=== PATIENT | male | born 1955 | race Caucasian/White ===

== ENCOUNTER → 2018-04-03 07:02 | Outpatient (CLI) | payer OTHER, SELFPAY ==
[2018-04-03 07:54] LABS: ALB/GLOB Ratio 1.1 RATIO (0.9-2.4); AST(SGOT) 20 U/L (15-37); Alanine Aminotransfer ALT/SGPT 30 U/L (16-61); Albumin, Serum 3.7 g/dL (3.2-5.0); Alkaline Phosphatase 86 U/L (45-117); Anion Gap 6 (5-15); BUN 15 mg/dL (7-18); BUN/Creat Ratio 17.8 RATIO (10-20); Chloride 101 mmol/L (98-107); Cholesterol 138 mg/dL (200); Creatinine, Serum 0.84 mg/dL (0.70-1.30); EST Glomerular Filtration Rate 97 mL/min (>60); Est Glom Filt Rate - Afr Amer 118 mL/min (>60); Globulin 3.5 g/dL (2.2-4.2); Glucose 99 mg/dL (74-106); High Density Lipoprotein 43 mg/dL; Potassium 3.5 mmol/L (3.5-5.1); Protein, Total 7.2 g/dL (6.4-8.2); Sodium Level 140 mmol/L (136-145); Triglycerides 91 mg/dL; Very Low Density Lipoprotein 18 mg/dL (5-40)
[2018-04-03 07:58] LABS: Microalbumin,Random Urine 7.1 mg/L (NO RANGE EST.); Microalbumin:Creatinine Ratio 10.3 mg/g CRE (<30 mg/g CRE)
[2018-04-03 08:42] LABS: Hemoglobin A1c 6.2 % (4.2-6.3)
== END ==
PROVIDERS: Family Provider Family Medicine; PCP Family Medicine; Referring Provider Family Medicine; Visit Provider Family Medicine
DX: E11.49 Type 2 diabetes mellitus with other diabetic neurological complication (principal); E78.5 Hyperlipidemia, unspecified; Z79.899 Other long term (current) drug therapy
CPT/HCPCS: 36415; 80053; 80061; 82043; 82570; 83036

== ENCOUNTER → 2018-04-08 11:45 | Outpatient (CLI) | payer OTHER, SELFPAY | PROVIDERS: Family Provider Family Medicine; PCP Family Medicine; Referring Provider Family Medicine; Visit Provider Family Medicine | DX: E11.9 Type 2 diabetes mellitus without complications (principal); Z12.11 Encounter for screening for malignant neoplasm of colon ==

== ENCOUNTER 2021-07-07 11:00 | Outpatient (CLI) | payer MEDICARE, SELFPAY ==
--- NOTE | 2021-07-07 11:06 | RAD_ITS ---
STUDY: X-RAY - RIGHT SHOULDER REASON FOR EXAM: Male, 66 years old. Right shoulder pain. TECHNIQUE: 4 view(s) of the shoulder. COMPARISON: None. FINDINGS: Osteopenia. Mild arthrosis of the glenohumeral joint. Small subacromial spur. Mild arthrosis of the AC joint. The soft tissue structures are unremarkable. Normal visualized pulmonary apex. RAD/Shoulder min 2 Views IMPRESSION: Osteopenia with osteoarthrosis of the glenohumeral and acromioclavicular joints. Small subacromial spur. No acute abnormality or erosive changes. Electronically Signed: Elton French MD at 12:33 EST , Service support ,
--- NOTE | 2021-07-07 11:06 | RAD_ITS ---
STUDY: X-RAY - LEFT SHOULDER REASON FOR EXAM: Male, 66 years old. Shoulder pain. TECHNIQUE: 4 view(s) of the shoulder. COMPARISON: None. FINDINGS: Osteopenia. Mild arthrosis of the glenohumeral joint. Small subacromial spur. Mild arthrosis of the AC joint. The soft tissue structures are unremarkable. Normal visualized pulmonary apex. RAD/Shoulder min 2 Views IMPRESSION: Osteopenia with mild arthrosis of the glenohumeral and acromioclavicular joints. Small subacromial spur. No acute abnormality or erosive changes. Electronically Signed: Elton French MD at 12:33 EST , Service support ,
== END 2021-07-07 23:59 | disposition home or self-care (01) ==
PROVIDERS: PCP Family Medicine; Referring Provider Anesthesiology Pain Medicine; Visit Provider Anesthesiology Pain Medicine
DX: M25.511 Pain in right shoulder (principal); M25.512 Pain in left shoulder
CPT/HCPCS: 73030

== ENCOUNTER 2021-08-09 09:00 | Outpatient (RCR) | payer MEDICARE, SELFPAY ==
--- NOTE | 2021-08-03 16:14 | HP.PTEVAL ---
Patient's Visit Information CHARLINE TERAN is a 66 year old M referred to Physical Therapy by Dr. Al Hutton MD with a diagnosis of CERVICAL DISC DEGENERATION,RADICULOPATHY CERVICAL. Date of Evaluation: 08/03/21 Physical Therapist: Stanley Romo, PT, Cert MDT, OCS - Visit Plan Frequency: 2x /Week Duration: 2-4 Weeks Plan: PT INTERVTION ICXT 18-24# X15 ,POSTURE EX''s AND HOME CERVICAL TRACTION UNIT - Subjective This 66 y/o male presents to physical therapy with physical therapy with cervical radiculopathy. Patient feel Mar 2021 fell forward on hands and face at a gas station. Patient went to [facility] urgent care x-rays where -. Seen family DR recommended pain management . Patient had MRI showed bulging disc /osteophyte. Patient plans epidural injections . Patient has had prior PT for shoulders strengthening/RTC which has helped. Currently ,patient has paresthesia/tingling ,pin/needles in fingers with occasional burning at night . These symptoms are more constant. Patient aggravating factors sleeping. Patient also c/o weakness in hand. Alleviating flexion ,MEDS. MEDS: gabapentin. Symptoms affects ADLS' and function. Denies PEREZ/dizziness/nausea. Patient goals to reduce these symptoms and strength. VOCATION: part-time. SOCAIL: - Pain Right Hand Pain Intensity (Out of 10): 5 Pain Intensity Range: 10 Comment: fingers - Objective POSTURE: mild forward posture rounded shoulders. NEURO: c/o paresthesia/tingling ,burning ,pin needles fingers ,reflexes 1/3 C5-6-7. PALAPTION: tender OA /occiput/UT. CERVICAL ROM: flexion min loss ,extension mod loss, lateral flexion/rotation mod loss. MACHINE STEMMER STRENGTH: 32# right 45 # left. MMT: 4/5 except shoulders 4-/5 - Special Tests C/S Radiculapathy - Left Upper limb tension test: Negative C/S Radiculapathy - Right Upper limb tension test: Negative C/S Radiculapathy - Left Spurlings: Negative C/S Radiculapathy - Right Spurlings: Negative C/S Radiculapathy - Left Cervical distraction: Negative C/S Radiculapathy - Right Cervical distraction: Negative C/S Radiculapathy - Left Relief test: Negative C/S Radiculapathy - Right Relief test: Negative C/S Radiculapathy - Valsalva: Negative Sharp Ced: Negative Vertebral Artery Test: Negative Alar Ligament Test: Negative - Balance/Special Test Scores Oswestry Neck Score: 17 - Goals Goal 1:: Patient to demonstrate 50% improvement with decrease symptoms in fingers to improve function Goal Time Frame: 2-4 Weeks Goal 2:: Patient to benefit from home traction unit Goal Time Frame: 2-4 Weeks Goal 3:: Patient improve posture for ADLS 80% Goal Time Frame: 2-4 Weeks Goal 4:: Patient to improve neck oswestry by 5 points to improve function with decrease symptoms Goal Time Frame: 2-4 Weeks - Rehabilitation Potential Physical Therapy Diagnosis: This patient has cervical radiculopathy in with numbness, tingling ,pin/needles/burning in fingers with weakness in right hand from falling on arms and face thus benefit from skilled PT Rehabilitation Potential: Good - Anticipated Interventions Patient/Client Instruction: Educate patient on: Condition, Plan of Care For the Purpose of:: To decrease pain, To increase ROM, To improve muscle performance and motor function, To improve ability to perform ADL's, To increase tolerance to activity/condition/position, To improve health of tissue, To decrease soft tissue restriction, To increase flexibility/ROM Therapeutic Exercise to Include: Strength training, Postural training, Flexibilty training, Active ROM For the Purpose of:: To decrease pain, To increase ROM, To improve muscle performance and motor function, To increase tolerance to activity/condition/position, To improve ability of physical actions for home/community/work/leisure, To decrease soft tissue restriction, To increase flexibility/ROM Thank you for the opportunity to evaluate your patient. For Medicare and Medicare HMO plans, please review the plan of care and approve it. It will need to be FAXED BACK to us at [phone] for Medicare purposes. For Medicare only, by signing this I certify the plan of care. Please let me know if there are questions or concerns regarding this plan of care. Physician Signature: Date:
== END 2021-08-09 19:00 | disposition home or self-care (01) ==
LOC: PT 09:00
PROVIDERS: PCP Family Medicine; Referring Provider Anesthesiology Pain Medicine; Visit Provider Anesthesiology Pain Medicine
DX: M50.30 Other cervical disc degeneration, unspecified cervical region (principal); M54.12 Radiculopathy, cervical region
CPT/HCPCS: 97012; 97035; 97162

== ENCOUNTER 2025-02-05 20:02 | Emergency (ER) | payer MEDICARE, SELFPAY ==
[2025-02-05 20:03] VITALS: BP 172/84; PULSE 86; RESP 18; TEMP 36.8; O2SAT 98
--- NOTE | 2025-02-05 21:21 | EDS_ITS ---
HPI History of Present Illness Chief Complaint: Complaint Informant: patient Pain Onset: Today Context: Gradual Onset Timing: Continuous Current Severity: Moderate Maximum Severity: Moderate Narrative Narrative: 69-year-old male history of diabetes enlarged prostate. Was at [facility] Yesterday recently diagnosed with a bladder stone they did a procedure to break down the bladder stone and then did a Roto-Rooter procedure for his prostate. Had a Mejia catheter stayed in hospital overnight. He had difficulty urinating at [facility]. When they pulled his Mejia catheter. They discharged him home with an 18 [place] Mejia catheter which became obstructed tonight he had urinary retention. The catheter still in place. He is on no blood thinners. Prior similar symptoms: No Recent Illness/Hospitalization: Yes [facility] Medical History (Updated 02/06/25 @ 00:[address] Dieudonne Ng MD) Urinary stone Memory loss due to medical condition Lumbar stenosis Diabetes Medical History no medical history no medical history Home Medications ?Medication ?Instructions ?Recorded ?Last Taken ?Type amlodipine 10 mg tablet 10 mg PO DAILY 03/03/1704/01 06:55 History atorvastatin 20 mg tablet 20 mg PO QHS 03/03/17 Unknow n History albuterol 90 mcg/actuation aerosol 90 mcg inhalation Q 4H PRN PRN sob 02/05/25 Unknown History inhaler cholecalciferol (vitamin D3) 1,250 1,250 mcg PO QWEEK 02/05/25 Unknown History mcg (50,000 unit) capsule donepezil 5 mg tablet 5 mg PO DAILY 02/05/25 Unkno wn History gabapentin 300 mg capsule 300 mg PO Q12H PRN nerves Unknown History metformin 500 mg tablet 500 mg PO BID 02/05/25 Unkno wn History tamsulosin 0.4 mg capsule 0.8 mg PO QHS 02/05/25 Unkno wn History trospium 20 mg tablet 20 mg PO DAILY 02/05/25 Unkn own History valsartan 80 1 tab PO DAILY 02/05/25 Unkn own History mg-hydrochlorothiazide 12.5 mg tablet Allergy/AdvReac Type Severity Reaction Status Date / Time lisinopril Allergy PT UNSURE Verified 02/05/25 20:06 OF REACTION schwartz AdvReac PT UNSURE Verified 02/05/25 20:06 OF REACTION sunflower seed AdvReac PT UNSURE Verified 02/05/25 20:06 OF REACTION Social History Smoking Status: Never smoker ROS ROS ED ROS Narrative Denies recent illness.Gross hematuria post procedure. Constitutional Constitutional ED: Denies fever(s) Eyes Eyes: Denies blurry vision ENT ENT ED: Denies ear pain Cardiovascular Cardiovascular: Denies chest pain Respiratory/Chest Respiratory/Chest: Denies cough or dyspnea Gastrointestinal Gastrointestinal: Denies abdominal pain Genitourinary Genitourinary ED: Reports hematuria Musculoskeletal Musculoskeletal: Denies arthralgias Integumentary Denies abscess or rash Neurologic Neurologic: Denies headache(s) Psychiatric Psychiatric: Denies anxiety or depression Endocrine Endocrinology: Denies polydipsia Hematologic/Lymphatic Hematologic/Lymphatic: Denies easy bleeding, easy bruising or lymphadenopathy Allergic/Immunologic Allergic/Immunologic ED: Denies mouth swelling, tongue swelling or urticaria EXAM Physical Exam Narrative Exam Narrative: 69-year-old male sitting upright in bed. Vital signs stable afebrile. H EENT exam pupils round react light. Mytrex members. Neck nontender. Lungs clear. Heart regular rhythm rate about 85 no murmur. Chest wall ribs nontender. A bdomen soft, nontender, nondistended, normal bowel sounds without peritoneal signs. No tenderness over his bladder. External exam he has a 18 [place] Mejia catheter in place. Catheter bag has a moderate amount of blood. Some small clots. Currently the catheter is running. The nurses then flushed it once he came through triage and got it working again. He is moving all 4 extremities. Normal strength. No edema. Nontender. Patient is awake and alert no focal motor deficits. Const Vital Signs: 02/05/25 20:03 02/05/25 22:02 02/05/25 23:10 Temperature 98.2 F Temperature Source Oral Pulse Rate 86 76 77 Respiratory Rate 18 18 20 H Blood Pressure 172/84 H 149/70 H Blood Pressure Mean 113 96 Pulse Ox 98 96 96 Oxygen Delivery Method Room Air Room Air Room Air Positive well nourished and well developed; Negative for cachectic, contractures or unkempt General Appearance ED: well developed and NAD; Negative for unkempt, cachectic, contractures or pallor Nutritional Appearance: Negative for cachectic HEENT Reports moist mucous membranes normocephalic and atraumatic Eyes PERRL and EOMs intact bilaterally Neck no lymphadenopathy, supple and no JVD Resp normal respiratory effort and clear to auscultation bilaterally Cardio regular rate, regular rhythm, S1 normal heart sound, S2 normal heart sound and no murmurs GI non-tender, non-distended and no masses Inspection: Negative for abdominal distention Auscultation: normoactive bowel sounds Palpation: soft; Negative for tender or guarding no CVA tenderness Narrative: 18 [place] Mejia catheter in place. Gross hematuria in the Mejia bag. But currently the catheter is not obstructed. Back/Spine no CVA tenderness Extremity normal to inspection General Extremety ED: Negative for edema or pulses abnormal General Extremity: Negative for edema or pulses abnormal Neuro oriented x3, CN's II-XII intact bilaterally, moves all extremities and no focal motor deficits Sensorium / Orientation: alert, oriented to person, oriented to place and oriented to time Motor Exam: strength 5/5 throughout Psych mental status grossly normal Appearance: Negative for unkempt Thought Process: normal thought process Skin General Skin Exam: Negative for jaundice or pallor Lesions: no lesions Rashes: no rashes MDM MDM MDM Narrative Medical decision making narrative: 69-year-old male recent bladder stone procedure at [facility] Yesterday also a transurethral retrograde prostate procedure. Today having gross hematuria obstructing the 18 [place] catheter. Nurses have already irrigated and remove the clots the catheter is flowing he is still having significant amount of gross hematuria I spoke to the urologist on-call for Dr. Stefanie maldonado. She and I discussed the patient's case. Heather irrigate his bladder see if we can decrease the amount of hematuria. If need be the Mejia catheter will be changed from an 18 to a 22 if he still having significant bleeding. Repeat exam at 11:46 PM patient is doing well. We were able to irrigate the Mejia catheter it still blood-tinged but there is no clot it is flowing well. Patient again was offered but deferred at this time change in the Mejia catheter. He will follow-up with his [facility] urologist tomorrow. He knows to return if the catheter is not flowing or he gets significant abdominal distention and bladder pain. Lab Data Attestation: I reviewed the patient's lab results. Lab results narrative: CBC shows a white count 9.5. H&H 14 and 40. Platelets 179. Chemistry shows sodium 135. Gap 15. BUN and creatinine are 19 and 1.23. Leukos 154. Labs: Laboratory Results - last 24 hr 02/05/25 21:40 WBC 11.5 H RBC 4.44 L Hgb 14.0 Hct 40.5 MCV 91.2 MCH 31.5 MCHC 34.6 RDW Std Deviation 42.2 RDW Coeff of Matilda 12.7 Plt Count 179 MPV 10.0 Sodium 135 Potassium 3.6 Chloride 97 L Carbon Dioxide 23.7 Anion Gap 15 BUN 19 Creatinine 1.23 H Est GFR (MDRD) Non-Af 63 BUN/Creatinine Ratio 15.7 Glucose 154 H Calcium 9.0 Discharge Plan Triage Chief Complaint: Complaint ED Provider: Dieudonne Ng Dx/Rx/DC Orders Clinical Impression: Gross hematuria, Acute urinary retention, History of transurethral resection of prostate Instructions: ED Hematuria, ED Urinary Retention, Male Prescriptions: No Action atorvastatin 20 MG tablet 20 mg PO QHS amlodipine 10 MG tablet 10 mg PO DAILY albuterol 90 mcg/actuation aerosol 90 mcg inhalation Q4H PRN PRN (Reason: sob ) donepezil 5 mg tablet 5 mg PO DAILY gabapentin 300 mg capsule 300 mg PO Q12H PRN (Reason: nerves ) cholecalciferol (vitamin D3) 1,250 mcg (50,000 unit) capsule 1,250 mcg PO QWEEK metformin 500 mg tablet 500 mg PO BID valsartan-hydrochlorothiazide 80-12.5 mg tablet 1 tab PO DAILY tamsulosin 0.4 mg capsule 0.8 mg PO QHS trospium 20 mg tablet 20 mg PO DAILY Primary Care Provider: Temo Ferrera Referrals: Temo Ferrera MD [Primary Care Provider] - Edgar Zapata PA [Allied Health Professional] - As soon as possible Activity Restrictions/Additional Instructions: Follow-up with your [facility] urologist office this morning. Plenty of fluids. Avoid aspirin. If the catheter is not flowing and you are having a lot of pain in the area of your bladder, that means the catheter is obstructed, then you need to return and have this irrigated and most likely the catheter changed to a larger 22 [place] catheter. Print Language: Afghan Disposition Disposition: Home, Self Care
--- OUTSIDE RECORDS SUMMARY | 2025-02-05 21:33 | XMS RPT_ITS | CCD ---
Author Organization [facility]ini[facility] Care Team Providers Care Set Up Mechanic Automatic Line Name Role Phone EJSICAKENAN Admitting Unavailable JESICAKENAN Primary Care Unavailable KENAN MOONEY Attending Unavailable CEBUL, DEBBIE III Consulting Unavailable PROVIDER, UNKNOWN Consulting Unavailable JESICAKENAN PANDEY Primary Care Unavailable KENAN MOONEY Attending Unavailable CEBUL, DEBBIE III Consulting Unavailable JESICAKENAN PANDEY Admitting Unavailable PROVIDER, UNKNOWN Consulting Unavailable Unavailable Primary Care Provider UnavailViktor Monsivais MD Primary Care Provider Viktor Ferrera MD Primary Care Provider Michel Nielsen Unavailable Viktor Ferrera MD Primary Care Provider Viktor Ferrera MD Primary Care Provider Michel Nielsen Unavailable Viktor Ferrera MD Primary Care Provider Mario B2B OUTSIDE SALES REPRESENTATIVE.Michelle DODD Unavailable Andrea B2B OUTSIDE SALES REPRESENTATIVE.[place] DODD Unavailable Tannhof B2B OUTSIDE SALES REPRESENTATIVE.JU Michelle Unavailable Unavail able [place]annhof B2B OUTSIDE SALES REPRESENTATIVE.JU Michelle Unavailable VIKTOR FERRERA Primary Care Unavailable FRANCISCO HIGHTOWER Attending Unavailable VIKTOR FERRERA Attending Unavailable VIKTOR FERRERA Primary Care Unavailable VIKTOR FERRERA Primary Care Unavailable TRICIA ANTONIO Attending Unavailable VIKTOR FERRERA Primary Care Unavailable VIKTOR FERRERA Referring Unavailable MARIO GLEZ Attending Unavailable VIKTOR FERRERA Referring Unavailable VIKTOR FERRERA Primary Care Unavailable MARIO GLEZ Attending Unavailable ELDERBROCK, VIKTOR D Primary Care Unavailable ELDERBROCK, VIKTOR D Referring Unavailable ELDERBROCK, VIKTOR D Primary Care Unavailable MALI MODI Attending Unavailable MICHELLE MARTIN Attending Unavailabl e ELDERBROCK, VIKTOR D Primary Care Unavailable ELDERBROCK, VIKTOR D Primary Care Unavailable ELDERBROCK, VIKTOR D Referring Unavailable ELDERBROCK, VIKTOR D Primary Care Unavailable ELDERBROCK, VIKTOR D Primary Care Unavailable MALI MODI Attending Unavailable MICHELLE MARTIN Referring Unavailabl e ELDERBROCK, VIKTOR D Primary Care Unavailable ELDERBROCK, VIKTOR D Primary Care Unavailable FRANCISCO HIGHTOWER Attending Unavailable ELDERBROCK, VIKTOR D Primary Care Unavailable EID, JAYE Referring Unavailable ELDERBROCK, VIKTOR D Primary Care Unavailable MARIO GLEZ Attending Unavailable ELDERBROCK, VIKTOR D Referring Unavailable ELDERBROCK, VIKTOR D Primary Care Unavailable CHIKA GLEZN Attending Unavailable ELDERBROCK, VIKTOR D Referring Unavailable ELDERBROCK, VIKTOR D Primary Care Unavailable EID, JAYE Referring Unavailable ELDERBROCK, VIKTOR D Primary Care Unavailable EIDKRYSTAL STEVENSON Attending Unavailable ELDERBROCK, VIKTOR D Primary Care Unavailable SELF Referring Unavailable MARIO GLEZ Attending Unavailable ELDERBROCK, VIKTOR D Referring Unavailable ELDERBROCK, VIKTOR D Primary Care Unavailable NEWTONMARIO LOPEZ Attending Unavailable ELDERBROCK, VIKTOR D Referring Unavailable ELDERBROCK, VIKTOR D Primary Care Unavailable MARIO GLEZ Attending Unavailable ELDERBROCK, VIKTOR D Referring Unavailable ELDERBROCK, VIKTOR D Primary Care Unavailable CHIKA GLEZN Attending Unavailable ELDERBROCK, VIKTOR D Primary Care Unavailable ELDERBROCK, VIKTOR D Referring Unavailable TRICIA ANTONIO Attending Unavailable ELDERBROCK, VIKTOR D Primary Care Unavailable ELDERBROCK, VIKTOR D Primary Care Unavailable ELDERBROCK, VIKTOR D Referring Unavailable ELDERBROCK, VIKTOR D Primary Care Unavailable MARIO GLEZ Attending Unavailable ELDERBROCK, VIKTOR D Primary Care Unavailable ELDERBROCK, VIKTOR D Referring Unavailable NEWTONMARIO Attending Unavailable ELDERBROCK, VIKTOR D Primary Care Unavailable ELDERBROCK, VIKTOR D Referring Unavailable ELDERBROCK, VIKTOR D Attending Unavailable ELDERBROCK, VIKTOR D Primary Care Unavailable DAVID SHERIFF JR Referring Unavaila ble ELDERBROCK, VIKTOR D Primary Care Unavailable ELDERBROCK, VIKTOR D Referring Unavailable ELDERBROCK, VIKOTR D Primary Care Unavailable ELDERBROCK, VIKTOR D Referring Unavailable ELDERBROCK, VIKTOR D Primary Care Unavailable ELDERBROCK, VIKTOR D Referring Unavailable ELDERBROCK, VIKTOR D Primary Care Unavailable BRYCEVIKTOR TOTH Referring Unavailable BRYCEVIKTOR TOTH Primary Care Unavailable JESSE BAIN Attending Unavailable KENAN PACE JR Referring Unavailable BRYCEVIKTOR TOTH Primary Care Unavailable DAVID SHERIFF JR Referring Unavailfarhana WUVIKTOR TOTH Primary Care Unavailable DAVID SHERIFF JR Referring Unavaila meera WUVIKTOR TOTH Primary Care Unavailable DAVID SHERIFF JR Attending Unavaila meera JAYE EID Referring Unavailable BRYCEVIKTOR TOTH Primary Care Unavailable Allergies Allergy Classification Reported Allergen(s) Allergy Type Date of Onset Reaction(s) Facility Angiotensin Converting Enzyme (TOÑA) Inhibitors (1 source) Lisinopril Drug Allergy 2 Cough [facility] sunflower seed extract (1 source) sunflower seed extract Drug Allergy 1 Other: See Comments [facility] (20 sources) Lisinopril; Translations: [LISINOPRIL] Drug Allergy 2 Cough [facility] (20 sources) sunflower seed extract; Translations: [SUNFLOWER SEED] Drug Allergy 1 Other: See Comments [facility] Work Phone: (20 sources) Kidney Beans; Translations: [KIDNEY BEANS] Food Intolerance 1 GI Upset [facility] Work Phone: Medications Current Medications Medication Drug Class(es) Dates Sig (Normalized) Sig (Original) [id number] 200 actuat albuterol 0.09 mg/actuat metered dose inhaler (20 sources) beta2-Adrenergic Agonist Start: 09-03-2023 End: 10-03-2023 take 2 puff(s) by inhalation every four hours as needed for wheezing albuterol HFA (VENTOLIN HFA) 90 mcg/actuation inhaler Indications: Bronchitis Inhale 2 Puffs as instructed every 4 hours as needed for wheezing/shortness of breath. 1 Each 09/03/2023 Active Comment on above: Inhale 2 Puffs as in structed every 4 hours as needed for wheezing/shortness of breath. amLODIPine 10 mg oral tablet (20 sources) Dihydropyridine Calcium Channel Twila Start: 07-06-2020 End: 10-16-2024 take 1 tablet by mouth once daily amLODIPine (NORVASC) 10 mg tablet Indications: Essential hypertension Take 1 tablet by mouth once daily. 90 tablet 3 10/16/2024 Active Comment on above: Take 1 tablet by yoselin th once daily. atorvastatin 20 mg oral tablet (20 sources) HMG-CoA Reductase Inhibitor Start: 07-06-2020 End: 10-16-2024 atorvastatin (LIPITOR) 20 mg tablet Indications: Hyperlipidemia with target LDL less than 100 , DM (diabetes mellitus), type 2 with neurological complications (HCC) Take 1 tablet by mouth once daily. 90 tablet 3 10/16/2024 Active ATORVASTATIN GEOVANNA CIUM PO Take by mouth 0 Active Comment on above: Take 1 tablet by yoselin th once daily. azithromycin 250 mg oral tablet (1 source) Macrolide Antimicrobial Start: 2023 End: 2023 azithromycin (ZITHROMAX Z-NINA) 250 mg tablet Indications: Bronchitis Take 2 tablets day one, then, 1 tablet daily until gone. 6 tablet 0 09/03/2023 09/08/2023 Active Comment on above: Take 2 tablets day o ne, then, 1 tablet daily until gone. benzonatate 100 mg oral capsule (3 sources) Non-narcotic Antitussive Start: 2023 End: 2023 take 1 capsule by mouth every eight hours as needed for cough and cough benzonatate (TESSALON PERLE) 100 mg capsule Indications: Acute cough Take 1 capsule by mouth every 8 hours as needed for cough for up to 15 days. 30 capsule 0 08/31/2023 09/15/2023 Active Comment on above: Take 1 capsule by mo [facility] every 8 hours as needed for cough for up to 15 days. cholecalciferol 1.25 mg oral capsule (20 sources) Vitamin D Start: 2023 End: 2024 take 1 capsule by mouth every week at mealtime cholecalciferol, Vitamin D3, (VITAMIN D3) 1,250 mcg (50,000 unit) cap capsule Indications: Vitamin D deficiency Take 1 capsule by mouth one time a week. take with food 12 capsule 3 10/16/2024 Active Comment on above: Take 1 capsule by mo [facility] one time a week. take with food cyclobenzaprine hydrochloride 5 mg oral tablet (20 sources) Muscle Relaxant Start: 2023 take 1 tablet by mouth three times daily cyclobenzaprine (FLEXERIL) 5 mg tablet Take 1 tablet by mouth three times a day. 12 tablet 05/21/2024 Active donepezil hydrochloride 5 mg oral tablet (19 sources) Start: 2024 End: 2024 take 1 tablet by mouth once daily at bedtime donepezil (ARICEPT) 5 mg tablet TAKE 1 TABLET BY MOUTH EVERYDAY AT BEDTIME 90 tablet 1 02/03/2025 Active gabapentin 300 mg oral capsule (20 sources) Anti-epileptic Agent Start: 2020 End: 2025 take 1 capsule by mouth once daily in the morning, then take 2 capsules by mouth once daily at bedtime gabapentin (NEURONTIN) 300 mg capsule Indications: DM (diabetes mellitus), type 2 with neurological complications (HCC) By mouth: 300mg qam, 600mg qHS 90 capsule 2 10/16/2024 02/15/2026 Active Comment on above: By mouth: 300mg qam, 600mg qHS hydroCHLOROthiazide 12.5 mg / valsartan 80 mg oral tablet (20 sources) Thiazide Diuretic, Angiotensin 2 Receptor Twila Start: 2020 End: 2024 take 1 tablet by mouth once daily Valsartan-hydroCHLOR Othiazide (DIOVAN HCT) 80-12.5 mg per tablet Indications: Essential hypertension Take 1 tablet by mouth once daily. 90 tablet 3 10/16/2024 Active Comment on above: Take 1 tablet by yoselin th once daily. iv contrast (will be provided with radiology test) (15 sources) Start: 2024 iv contrast (will be provided with radiology test) Indications: Gross hematuria CT Urogram WO/W Inject, intravenously, once for 1 dose.No IV access, insert saline lock prior to the beginning of sedation, infusion, injection of imaging exam. Discontinue saline lock post exam. If Pt. has a central line or IVAD, may access for administration according to line specific nursing protocol. Once exam is complete flush line and de-access according to line specific nursing protocol in the CT contrast administration guidelines link. 1 each 11/25/2024 Active LORazepam 0.5 mg oral tablet (1 source) Benzodiazepine Start: 2023 End: 2023 LORazepam (ATIVAN) 0.5 mg Indications: Claustrophobia Take 1 tablet by mouth as directed for 1 day. Take one pill 30-60 minutes before MRI 1 tablet 06/12/2024 06/13/2024 Active metFORMIN hydrochloride 500 mg oral tablet (20 sources) Biguanide Start: 2022 End: 2023 take 1 tablet by mouth twice daily at mealtime metFORMIN (GLUCOPHAGE) 500 mg tablet Indications: Controlled type 2 diabetes mellitus without complication, without long-term current use of insulin (HCC) Take 1 tablet by mouth two times a day with meals. 180 tablet 3 05/22/2024 Active Start: 07-06-2020 End: 04-13-2022 metFORMIN (GLUCOPHAGE) 500 m g tablet Indications: DM (diabetes mellitus), type 2 with neurological complications (HCC) , Controlled type 2 diabetes mellitus without complication, without long-term current use of insulin (HCC) Take 1 tablet by mouth twice daily with meals. 180 tablet 3 07/06/2020 10/12/2021 Discontinued METFORMIN HCL ER PO Take by mouth 0 Active Comment on above: Take 1 tablet by yoselin th twice daily with meals. Take 1 tablet by yoselin th two times a day with meals. predniSONE 20 mg oral tablet (3 sources) Start: 05-21-2024 End: 05-26-2024 take 2 tablets by mouth once daily predniSONE (DELTASONE) 20 mg tablet Take 2 tablets by mouth once daily for 5 days. 10 tablet 05/21/2024 05/26/2024 Active Start: 09-03-2023 End: 09-08-2023 take 1 tablet by mouth once daily predniSONE (DELTASONE) 20 mg tablet Indications: Bronchitis Take 1 tablet by mouth once daily for 5 days. 5 tablet 0 09/03/2023 09/08/2023 Active Comment on above: Take 1 tablet by yoselin th once daily for 5 days. 1000 ml sodium chloride 9 mg/ml injection (2 sources) Start: 11-26-19 End: 11-26-19 inject 1 dose intravenously once 0.9 % sodium chloride (NACL 0.9%) infusion Indications: Gross hematuria Inject 150 mL/hr intravenously one time only for 1 dose. Administer at rate defined per CT contrast administration specifications. To be provided with radiology test. 1 each 11/25/2024 11/25/2024 Active tamsulosin hydrochloride 0.4 mg oral capsule (20 sources) alpha-Adrenergi c Twila Start: 12-10-19 End: 12-10-19 take 2 capsules by mouth once daily at bedtime tamsulosin (FLOMAX) 0.4 mg Indications: BPH associated with nocturia Take 2 capsules by mouth daily at bedtime. 180 capsule 3 12/10/2023 Active Start: 04-04-2023 End: 12-10-2023 take 1 capsule by mouth once daily at bedtime tamsulosin (FLOMAX) 0.4 mg Indications: BPH associated with nocturia Take 1 capsule by mouth daily at bedtime. 90 capsule 3 04/04/2023 12/10/2023 Discontinued Start: 03-20-2022 take 1 capsule by mo uth once daily at bedtime tamsulosin (FLOMAX) 0.4 mg Take 1 capsule by mouth daily at bedtime. 90 capsule 3 03/20/2022 Active Comment on above: Take 1 capsule by mo uth daily at bedtime. trospium chloride 20 mg oral tablet (20 sources) Cholinergic Muscarinic Antagonist Start: 03-24-2024 End: 01-15-2025 take 1 tablet by mouth once daily trospium (SANCTURA) 20 mg tablet Indications: BPH associated with nocturia , OAB (overactive bladder) TAKE 1 TABLET BY MOUTH EVERY DAY 90 tablet 3 01/15/2025 Active Completed/Discontinued Medications Medication Drug Class(es) Dates Sig (Normalized) Sig (Original) ciprofloxacin 500 mg oral tablet (2 sources) Quinolone Antimicrobial Start: 12-29-2024 End: 12-29-2024 ciprofloxacin HCl 500 mg tab(s) (CIPRO) Start: 12-29-2024 End: 12-29-2024 take 1 dose by mouth once at mealtime 500 mg, ORAL, ONCE, 1 dose, On Sun12/29/24 at 0900, Administer 2 hours before or 4 hours after medications containing calcium, magnesium, aluminum, iron, or zinc (including antacids and sucralfate), and sevelamer. May be administered without regard to meals. Tube feedings should be held 1 hour before and 1 hour after administration., Antimicrobial indication: Prophylaxis EPINEPHrine 0.01 mg/ml / lidocaine hydrochloride 10 mg/ml injectable solution (1 source) Antiarrhythmic, alpha-Adrenergic Agonist, beta-Adrenergic Agonist, Catecholamine, Amide Local Anesthetic Start: 03-19-2021 End: 03-19-2021 lidocaine-EPINEPHrine 1 %-[id number] injection 5 mL ibuprofen 800 mg oral tablet (20 sources) Nonsteroidal Anti-inflammatory Drug Start: 03-29-2021 End: 04-10-2024 take 1 tablet by mouth every eight hours as needed ibuprofen (MOTRIN) 800 mg tablet Take 1 tablet by mouth every 8 hours as needed (FOR PAIN. TAKE WITH FOOD). 30 tablet 1 03/29/2021 04/10/2024 Discontinued (Course of therapy completed) Comment on above: Take 1 tablet by yoselin th every 8 hours as needed (FOR PAIN. TAKE WITH FOOD). lidocaine hydrochloride 0.02 mg/mg topical gel (2 sources) Antiarrhythmic, Amide Local Anesthetic Start: 12-29-2024 End: 12-29-2024 lidocaine urojet 2 % 6 mL topical gel (GLYDO) Start: 12-29-2024 End: 12-29-2024 6 mL, URETHRAL, ONCE, 1 dose , On Sun12/29/24 at 0900, FOR EXTERNAL USE ONLY penicillin v potassium 250 m g oral tablet (9 sources) Start: 03-19-2021 End: 03-19-2021 penicillin v potassium (VEET ID) tablet 500 mg Start: 03-19-2021 End: 03-20-2022 take 1 tablet by mouth four times daily penicillin v potassium (VEETID) 500 MG tablet Take 1 tablet by mouth 4 times daily for 6 days 24 tablet 0 03/19/2021 03/25/2021 Active Comment on above: Take 500 mg by mouth four times daily. Problems Active Problems Problem Classification Problem Date Documented Da te Episodic/Chronic Abdominal hernia (10 sources) Hiatal hernia; Translations: [Diaphragmatic hernia without obstruction or gangrene] Onset: 5 01-27-2025 Episodic Anxiety disorders (2 sources) Mixed anxiety and depressive disorder; Translations: [Other specified anxiety disorders] 02-05-2024 Chronic Calculus of urinary tract (12 sources) Urinary bladder stone; Translations: [Calculus in bladder] Onset: 5 12-29-2024 Episodic Chronic obstructive pulmonary disease and bronchiectasis (1 source) Bronchitis; Translations: [Bronchitis, not specified as acute or chronic] 09-03-2023 Episodic Diabetes mellitus with complications (20 sources) Type 2 diabetes mellitus; Translations: [Type 2 diabetes mellitus with other diabetic neurological complication] Onset: 5 07-06-2020 Chronic Diabetes mellitus without complication (5 sources) Type 2 diabetes mellitus without complication; Translations: [Type 2 diabetes mellitus without complications] Onset: 5 Chronic Disorders of lipid metabolism (20 sources) Hyperlipidemia; Translations: [Hyperlipidemia, unspecified] Onset: 3 04-28-2015 Chronic Esophageal disorders (10 sources) Gastroesophageal reflux disease without esophagitis; Translations: [Gastro-esophageal reflux disease without esophagitis] Onset: 5 01-27-2025 Chronic Essential hypertension (20 sources) Hypertensive disorder; Translations: [Essential (primary) hypertension] Onset: 2 09-04-2011 Chronic Genitourinary symptoms and ill-defined conditions (6 sources) Urinary incontinence; Translations: [Unspecified urinary incontinence] Onset: 5 06-30-2024 Chronic Genitourinary symptoms and ill-defined conditions (16 sources) Urgent desire to urinate; Translations: [Urgency of urination] Onset: 2 05-12-2024 Episodic Heart valve disorders (13 sources) Heart murmur; Translations: [Cardiac murmur, unspecified] Onset: 5 01-27-2025 Episodic Hyperplasia of prostate (20 sources) Nocturia due to benign prostatic hypertrophy; Translations: [Benign prostatic hyperplasia with lower urinary tract symptoms] Onset: 2 Chronic Nutritional deficiencies (4 sources) Vitamin D deficiency; Translations: [Vitamin D deficiency, unspecified] Onset: 5 10-12-2023 Chronic Open wounds of head; neck; and trunk (1 source) Laceration of nose; Translations: [Laceration without foreign body of nose, initial encounter] Episodic Other aftercare (3 sources) Removal of sutures done; Translations: [Encounter for removal of sutures] 12-03-2024 Episodic Other aftercare (1 source) Encounter for removal of sutures; Translations: [Visit for suture removal] Onset: 5 Episodic Other connective tissue disease (1 source) Pelvic floor dysfunction; Translations: [Other specified disorders of muscle] 11-25-2024 Episodic Other connective tissue disease (1 source) Other specified disorders of muscle; Translations: [PFD (pelvic floor dysfunction)] Onset: 5 Episodic Other diseases of bladder and urethra (6 sources) Overactive bladder; Translations: [Overactive bladder] 03-24-2024 Chronic Other diseases of bladder and urethra (1 source) Overactive bladder; Translations: [OAB (overactive bladder)] Onset: 4 Chronic Other diseases of kidney and ureters (1 source) Other obstructive and reflux uropathy; Translations: [BPH with obstruction/lower urinary tract symptoms] Onset: 5 Episodic Other hereditary and degenerative nervous system conditions (3 sources) Impaired cognition; Translations: [Mild cognitive impairment, so stated] 02-05-2024 Chronic Other hereditary and degenerative nervous system conditions (1 source) Mild cognitive impairment, so stated; Translations: [MCI (mild cognitive impairment)] Onset: 4 Chronic Other injuries and conditions due to external causes (1 source) Injury of face; Translations: [Unspecified injury of face, initial encounter] Episodic Other lower respiratory disease (1 source) Cough; Translations: [Acute cough] 08-31-2023 Episodic Other nervous system disorders (2 sources) Impaired cognition; Translations: [Other symptoms and signs involving cognitive functions and awareness] 12-24-2023 Episodic Other nervous system disorders (4 sources) Muscular incoordination; Translations: [Other lack of coordination] 08-05-2024 Episodic Other non-traumatic joint disorders (7 sources) Shoulder pain; Translations: [Pain in right shoulder] Onset: 1 Episodic Other screening for suspected conditions (not mental disorders or infectious disease) (13 sources) Raised prostate specific antigen; Translations: [Elevated prostate specific antigen [PSA]] Onset: 4 Episodic Other skin disorders (3 sources) Skin lesion; Translations: [Disorder of the skin and subcutaneous tissue, unspecified] 10-16-2024 Episodic Other skin disorders (3 sources) Sebaceous cyst of skin; Translations: [Sebaceous cyst] 10-16-2024 Episodic Other upper respiratory infections (1 source) Acute upper respiratory infection; Translations: [Acute upper respiratory infection, unspecified] 08-31-2023 Episodic Phlebitis; thrombophlebitis and thromboembolism (20 sources) Acute deep vein thrombosis of lower limb; Translations: [Acute embolism and thrombosis of unspecified deep veins of unspecified lower extremity] Onset: 2 Resolved: 7 03-26-2017 Episodic Residual codes; unclassified (3 sources) Memory impairment; Translations: [Other amnesia] 10-10-2023 Episodic Residual codes; unclassified (6 sources) Amnesia; Translations: [Other amnesia] 12-24-2023 Episodic Spondylosis; intervertebral disc disorders; other back problems (20 sources) Intervertebral disc disorder of lumbar region with myelopathy; Translations: [Intervertebral disc disorders with myelopathy, lumbar region] Onset: 3 10-25-2015 Chronic Unclassified (1 source) Sebaceous cyst of skin 10-16-2024 Unclassified (1 source) Procedure Onset: Past or Other Problems Problem Classification Problem Date Documented Date Episodic/Chronic Melanomas of skin (20 sources) Superficial spreading malignant melanoma of skin; Translations: [Malignant melanoma of skin, unspecified] Onset: 12-03-2014 Resolved: 04-10-2024 12-03-2014 Chronic Neoplasms of unspecified nature or uncertain behavior (20 sources) Neoplasm of uncertain behavior of skin; Translations: [Neoplasm of uncertain behavior of skin] Onset: 03-27-2017 03-27-2017 Episodic Other connective tissue disease (20 sources) Patellar tendonitis; Translations: [Patellar tendinitis, unspecified knee] Onset: 06-06-2011 Resolved: 04-28-2015 04-28-2015 Episodic Other connective tissue disease (8 sources) Synovial cyst of knee; Translations: [Synovial cyst of popliteal space [Shaffer], unspecified knee] Onset: 07-21-2011 Resolved: 04-28-2015 04-28-2015 Episodic Other connective tissue disease (20 sources) Synovial cyst of popliteal space [Shaffer], unspecified knee; Translations: [Synovial cyst of popliteal space] Onset: 07-21-2011 Resolved: 04-28-2015 04-28-2015 Episodic Other diseases of veins and lymphatics (20 sources) Vascular insufficiency; Translations: [Venous insufficiency (chronic) (peripheral)] Onset: 09-04-2011 09-04-2011 Episodic Other nervous system disorders (20 sources) Pappas's metatarsalgia; Translations: [Lesion of plantar nerve, unspecified lower limb] Onset: 05-16-2013 Resolved: 09-21-2016 09-21-2016 Chronic Other nervous system disorders (1 source) Other lack of coordination; Translations: [Muscular incoordination] Onset: 08-18-2024 Episodic Other non-traumatic joint disorders (20 sources) Bilateral chronic pain of upper limbs; Translations: [Pain in right shoulder] Onset: 04-12-2021 04-12-2021 Episodic Other non-traumatic joint disorders (20 sources) Pain in lower limb; Translations: [Pain in unspecified knee] Onset: 11-02-2011 Resolved: 04-28-2015 04-28-2015 Episodic Other skin disorders (1 source) Sebaceous cyst; Translations: [Sebaceous cyst] Onset: 10-16-2024 Episodic Other skin disorders (1 source) Disorder of the skin and subcutaneous tissue, unspecified; Translations: [Skin lesion] Onset: 10-16-2024 Episodic Residual codes; unclassified (2 sources) Other amnesia; Translations: [Memory changes] Onset: 04-09-2024 Episodic Screening and history of mental health and substance abuse codes (4 sources) Patient encounter status; Translations: [Encounter for screening for depression] Onset: 10-16-2024 10-16-2024 Episodic Spondylosis; intervertebral disc disorders; other back problems (20 sources) Stenosis of intervertebral foramina; Translations: [Spinal stenosis, cervical region] Onset: 12-17-2007 Resolved: 09-21-2016 05-20-2021 Episodic Sprains and strains (20 sources) Strain of neck muscle; Translations: [Strain of muscle, fascia and tendon at neck level, initial encounter] Onset: 05-27-2024 05-22-2024 Episodic Results Test Name Value Interpretation Reference Range Facility [facility] 01-30-2025 Echocardiography Echocardiography Rep ort: [facility] Date of service: 01/30/2025 9:02:13 AM Ordering physician: DAVID SHERIFF JR Exam indication: Initial evaluation valvular heart disease Technologist: Eliana GUERRA Interpreting physician: Td Brooke MD PATIENT: Name: MR. CHARLINE SANCHEZ : 1955 Age: 69 years Gender: M History of dyslipidemia, diabetes mellitus and hypertension. Primary rhythm: sinus. Height: 172.72 cm BSA: 2.07 m Weight: 89.36 kg BMI: 30.0 kg/m Heart rate 67 bpm Blood pressure 118/74 mmHg Color Doppler was utilized to interrogate the cardiac valves assessed and spectral Doppler was utilized to determine the flow velocities and pressure gradients reported in this exam. Myocardial strain analysis was performed in this exam to aid in the assessment of cardiac function. MEASUREMENTS: Value Indexed Normal Max aortic dimension 3.9 cm Ao < 3.8 Left atrial volume 64 ml (biplane A-L) 32 ml/m Anatoly <= 34 LV ID (diastole) 3.7 cm (2D) 1.79 cm/m LV ID (systole) 2.3 cm (2D) 1.11 cm/m IVS, leaflet tips 1.2 cm (2D) Posterior wall thickness 1.2 cm (2D) Left ventricular mass 147 g (2D) 71 g/m Global peak long strain -27.7 % LV stroke volume 46 ml (2D biplane) LVOT stroke volume 85 ml 42 ml/m LV end diastolic volume 69 ml (2D biplane) 33.4 ml/m 34<=EDVi<75 LV end systolic volume 23 ml (2D biplane) 11.1 ml/m Ejection Fraction 67 % (2D biplane) EF > 52 FINDINGS: LEFT VENTRICLE The left ventricle is small. Left ventricular systolic function is normal. Global LV myocardial strain is normal. Grade I left ventricular diastolic dysfunction. Mitral annular lateral E/e': 15.7. Mitral annular septal E/e': 13.7. Wall Motion: All scored segments are normal. RIGHT VENTRICLE The right ventricle is normal in size. Right ventricular systolic function is normal. RV systolic tissue Doppler velocity is 12.7 cm/s. Tricuspid annular displacement is 2.9 cm. Estimated right ventricular systolic pressure is 29 mmHg consistent with normal pulmonary artery pressures. Estimated right atrial pressure is 3 mmHg based on IVC assessment. LEFT ATRIUM The left atrial cavity is mildly dilated. RIGHT ATRIUM The right atrial cavity is normal in size. Inferior Vena Cava: The inferior vena cava appears normal measuring 1.6 cm. The vessel decreases greater than 50 percent with inspiration. MITRAL VALVE There is moderate mitral annular calcification observed posterior. There is no mitral valve stenosis. There is no mitral valve regurgitation. There is moderate thickening of the posterior mitral leaflet. There is moderate calcification of the posterior mitral leaflet. The peak valve gradient is 5 mmHg. The mean valve gradient is 2 mmHg. The pressure half time is 80 msec. The peak mitral E/A ratio is 0.76. The average mitral E/e' ratio is 14.7. The mitral flow deceleration time is 277 msec. TRICUSPID VALVE The tricuspid valve leaflets are structurally normal. There is no tricuspid valve stenosis. There is mild (1+) tricuspid valve regurgitation. There is no thickening. AORTIC VALVE There is mild aortic valve stenosis. There is trace aortic valve regurgitation. Tricuspid aortic valve. There is moderate thickening. There is moderate calcification. The peak gradient is 23 mmHg (peak velocity = 240.5 cm/s). The mean gradient is 11 mmHg. The LVOT mean velocity is 75.9 cm/s. The LVOT diameter is 2.0 cm. The aortic VTI is 49.8 cm. The mean velocity in the aortic valve is 158.5 cm/s. The dimensionless valve index is 0.54. AV area is 1.71 cm (0.83 cm /m ) by continuity, VTI. The LVOT stroke volume index is 42 ml/m . PULMONIC VALVE The pulmonic valve cusps are structurally normal. There is no pulmonic valve stenosis. There is mild (1+) pulmonic valve regurgitation. There is no thickening. The peak gradient is 2 mmHg. AORTA The visualized aorta is borderline dilated. Measurements - Aortic valve annulus 1.9 cm. Sinus: 3.3 cm. Sinotubular junction 3.1 cm. Mid ascending aorta 3.9 cm. Mid arch 3.1 cm. PULMONARY ARTERIES The pulmonary arteries are normal. INTERATRIAL SEPTUM The interatrial septum is normal. There is no evidence of intracardiac shunting as detected by Doppler. PERICARDIUM The pericardium is normal. CONCLUSIONS: - Exam indication: Initial evaluation valvular heart disease - The left ventricle is small. Left ventricular systolic function is normal. EF = 67 5% (2D biplane) Grade I left ventricular diastolic dysfunction. - The right ventricle is normal in size. Right ventricular systolic function is normal. - The left atrial cavity is mildly dilated. - Mild Aortic Stenosis - The visualized aorta is borderline dilated with a maximal dimension of 3.9 cm. - The patient has not had a prior CC echocardiographic exam for comparison. Quei (more content not included)... [facility] Yumiko [facility]29[facility]20[facility] CHARLINE [facility] ([id number]) 1955 M Date Time Provider Department 01/29/25 TD BROOKE During your visit today, we recorded the following information about you: Ana Funk 01/29/2025 11:02 AM Signed LVM w/ date, time, location, AND prep for echo. MDS/CDL Allergies As of Date: 01/29/2025 Noted Allergy Reaction KIDNEY BEANS 05/23/2011 8 - GI Upset LISINOPRIL 11/30/2011 3 - Cough SUNFLOWER SEED 05/23/2011 14 - Other: See Comments Comments: Adverse taste in mouth Date Reviewed: 01/27/2025 Reviewed by: Brando Taylor APRN.[facility] - Fully Assessed Prescriptions as of 01/29/2025 - trospium (SANCTURA) 20 mg tablet TAKE 1 TABLET BY MOUTH EVERY DAY - iv contrast (will be provided with radiology test) CT Urogram WO/W Inject, intravenously, once for 1 dose.No IV access, insert saline lock prior to the beginning of sedation, infusion, injection of imaging exam. Discontinue saline lock post exam. If Pt. has a central line or IVAD, may access for administration according to line specific nursing protocol. Once exam is complete flush line and de-access according to line specific nursing protocol in the CT contrast administration guidelines link. - atorvastatin (LIPITOR) 20 mg tablet Take 1 tablet by mouth once daily. - cholecalciferol, Vitamin D3, (VITAMIN D3) 1,250 mcg (50,000 unit) cap capsule Take 1 capsule by mouth one time a week. take with food - Valsartan-hydroCHLOROthiaz silverio (DIOVAN HCT) 80-12.5 mg per tablet Take 1 tablet by mouth once daily. - gabapentin (NEURONTIN) 300 mg capsule By mouth: 300mg qam, 600mg qHS - amLODIPine (NORVASC) 10 mg tablet Take 1 tablet by mouth once daily. - donepezil (ARICEPT) 5 mg tablet Take 1 tablet by mouth daily at bedtime. - metFORMIN (GLUCOPHAGE) 500 mg tablet Take 1 tablet by mouth two times a day with meals. - cyclobenzaprine (FLEXERIL) 5 mg tablet Take 1 tablet by mouth three times a day. - tamsulosin (FLOMAX) 0.4 mg Take 2 capsules by mouth daily at bedtime. - albuterol HFA (VENTOLIN HFA) 90 mcg/actuation inhaler Inhale 2 Puffs as instructed every 4 hours as needed for wheezing/shortness of breath. Problem List As Of Date 01/29/2025 Noted Resolved Sciatica [M54.30] 12/17/2007 09/21/2016 Intervertebral lumbar disc disorder with myelop* Patellar tendinitis [M76.50] 06/06/2011 04/28/2015 DVT of lower limb, acute (HCC) [I82.409] 07/13/2011 03/26/2017 Popliteal cyst [M71.20] 07/21/2011 04/28/2015 HTN (hypertension) [I10] 09/04/2011 Venous insufficiency [I87.2] 09/04/2011 Pain in joint, lower leg [M25.569] 11/02/2011 04/28/2015 Lumbar degenerative disc disease [M51.369] 07/09/2012 Hyperlipidemia with target LDL less than 100 [E*05/16/2013 Pappas's neuroma [G57.60] 05/16/2013 09/21/2016 Superficial spreading malignant melanoma of ski*12/03/2014 04/10/2024 DM (diabetes mellitus), 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/28/2015 Bilateral lumbar radiculopathy [M54.16] 04/28/2015 09/21/2016 Neoplasm of uncertain behavior of skin [D48.5] 03/27/2017 Chronic pain of both shoulders [M25.511, G89.29*04/12/2021 Neural foraminal stenosis of cervical spine [M4*05/20/2021 BPH associated with nocturia [N40.1, R35.1] 03/20/2022 Radiculopathy of lumbar region [M54.16] 05/09/2024 Cervical radiculopathy [M54.12] 05/27/2024 Cervical strain [S16.1XXA] 05/27/2024 Pre-op exam [Z01.818] 01/26/2025 Bladder calculus [N21.0] 01/26/2025 Hiatal hernia [K44.9] 01/27/2025 Gastroesophageal reflux disease without esophag*01/27/2025 DVT (deep venous thrombosis) ([facility]) [I82.409] 01/27/2025 Heart murmur [R01.1] 01/27/2025 Encounter Status:Closed by ANA FUNK on 01/29/25 [facility] CHARLINE SANCHEZ ([id number]) 1955 M Date Time Provider Department 01/28/25 VIKTOR FERRERA [facility] During your visit today, we recorded the following information about you: Jeanne Victor LPN 01/28/2025 8:08 AM Signed Cindy from [facility] calling patient had pre op done was found to have heart murmur. Asking for PCP to order ECHO to evaluate this please. Patient is scheduled for surgery on 02/04/2025. Please advise Penny Woods RN 01/28/2025 8:26 AM Signed Cindy from [facility]on calling back to state to disregard request for ECHO order. A surgical provider there has ordered this. Will close this encounter. Penny Woods RN Allergies As of Date: 01/28/2025 Noted Allergy Reaction KIDNEY BEANS 05/23/2011 8 - GI Upset LISINOPRIL 11/30/2011 3 - Cough SUNFLOWER SEED 05/23/2011 14 - Other: See Comments Comments: Adverse taste in mouth Date Reviewed: 01/27/2025 Reviewed by: Brando Taylor APRN.MUSIC COORDINATOR - Fully Assessed Reason for Visit: Orders [681] Prescriptions as of 01/28/2025 - trospium (SANCTURA) 20 mg tablet TAKE 1 TABLET BY MOUTH EVERY DAY - iv contrast (will be provided with radiology test) CT Urogram WO/W Inject, intravenously, once for 1 dose.No IV access, insert saline lock prior to the beginning of sedation, infusion, injection of imaging exam. Discontinue saline lock post exam. If Pt. has a central line or IVAD, may access for administration according to line specific nursing protocol. Once exam is complete flush line and de-access according to line specific nursing protocol in the CT contrast administration guidelines link. - atorvastatin (LIPITOR) 20 mg tablet Take 1 tablet by mouth once daily. - cholecalciferol, Vitamin D3, (VITAMIN D3) 1,250 mcg (50,000 unit) cap capsule Take 1 capsule by mouth one time a week. take with food - Valsartan-hydroCHLOROthiaz silverio (DIOVAN HCT) 80-12.5 mg per tablet Take 1 tablet by mouth once daily. - gabapentin (NEURONTIN) 300 mg capsule By mouth: 300mg qam, 600mg qHS - amLODIPine (NORVASC) 10 mg tablet Take 1 tablet by mouth once daily. - donepezil (ARICEPT) 5 mg tablet Take 1 tablet by mouth daily at bedtime. - metFORMIN (GLUCOPHAGE) 500 mg tablet Take 1 tablet by mouth two times a day with meals. - cyclobenzaprine (FLEXERIL) 5 mg tablet Take 1 tablet by mouth three times a day. - tamsulosin (FLOMAX) 0.4 mg Take 2 capsules by mouth daily at bedtime. - albuterol HFA (VENTOLIN HFA) 90 mcg/actuation inhaler Inhale 2 Puffs as instructed every 4 hours as needed for wheezing/shortness of breath. Problem List As Of Date 01/28/2025 Noted Resolved Sciatica [M54.30] 12/17/2007 09/21/2016 Intervertebral lumbar disc disorder with myelop* Patellar tendinitis [M76.50] 06/06/2011 04/28/2015 DVT of lower limb, acute (HCC) [I82.409] 07/13/2011 03/26/2017 Popliteal cyst [M71.20] 07/21/2011 04/28/2015 HTN (hypertension) [I10] 09/04/2011 Venous insufficiency [I87.2] 09/04/2011 Pain in joint, lower leg [M25.569] 11/02/2011 04/28/2015 Lumbar degenerative disc disease [M51.369] 07/09/2012 Hyperlipidemia with target LDL less than 100 [E*05/16/2013 Pappas's neuroma [G57.60] 05/16/2013 09/21/2016 Superficial spreading malignant melanoma of ski*12/03/2014 04/10/2024 DM (diabetes mellitus), 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/28/2015 Bilateral lumbar radiculopathy [M54.16] 04/28/2015 09/21/2016 Neoplasm of uncertain behavior of skin [D48.5] 03/27/2017 Chronic pain of both shoulders [M25.511, G89.29*04/12/2021 Neural foraminal stenosis of cervical spine [M4*05/20/2021 BPH associated with nocturia [N40.1, R35.1] 03/20/2022 Radiculopathy of lumbar region [M54.16] 05/09/2024 Cervical radiculopathy [M54.12] 05/27/2024 Cervical strain [S16.1XXA] 05/27/2024 Pre-op exam [Z01.818] 01/26/2025 Bladder calculus [N21.0] 01/26/2025 Hiatal hernia [K44.9] 01/27/2025 Gastroesophageal reflux disease without esophag*01/27/2025 DVT (deep venous thrombosis) (HCC) [I82.409] 01/27/2025 Heart murmur [R01.1] 01/27/2025 Encounter Status:Closed by PENNY WOODS on 7/30/[address] [facility] PROGon 01-28-2025 NURSING PROG HNO ID: [id number] Author: BRANDO TAYLOR APRN.CNP Service: General Surgery Author Type: Nurse Practitioner Type: Nursing Progress Note Filed: 01/28/2025 08:43 Note Text: -- Summary: PAT -- Spoke with Dr. Sheriff -echocardiogram ordered. Called and had patient scheduled for echo 01/30/2025 9AM at [facility]. Arrive at 8:45 -no prep [address] [place] [place] [address] LM for patient with details and asked him to call me back to go over. Normal [facility] Bacteria Ur Culton 5 Bacteria identified Cx Nom (U) CULTURE, URINE: No growth (<1,000 CFU/ml) Normal [facility] Comment on above: Performed By: #### 6 30-4 ####[facility]ORY[facility]IA [id number] [place] [address] [place] CNNURSEon 01-27-2025 CNNURSE Nurse Visit (GENSWS) -- CHARLINE SANCHEZ ([id number]) 1955 M Date Time Provider Department 01/27/25 10:45 AM NURSE [facility] GENSWS During your visit today, we recorded the following information about you: Kristen Shelton LPN 01/27/2025 11:01 AM Addendum Patient presented to clinic that he feels like a stitch remains. Plane Tender notified. The site back was assessed and one mattress suture remained. Incision line was clean, dry and intact. Edges were well approximated. No dressing required. No open areas and skin looks good. Kristen TrudyErik Shelton LPN Allergies As of Date: 01/27/2025 Noted Allergy Reaction KIDNEY BEANS 05/23/2011 8 - GI Upset LISINOPRIL 11/30/2011 3 - Cough SUNFLOWER SEED 05/23/2011 14 - Other: See Comments Comments: Adverse taste in mouth Date Reviewed: 01/27/2025 Reviewed by: Brando Taylor APRN.MUSIC COORDINATOR - Fully Assessed Reason for Visit: Nurse Visit [792] Primary Visit Diagnosis:Visit for suture removal [Z48.02] Prescriptions as of 01/27/2025 - trospium (SANCTURA) 20 mg tablet TAKE 1 TABLET BY MOUTH EVERY DAY - iv contrast (will be provided with radiology test) CT Urogram WO/W Inject, intravenously, once for 1 dose.No IV access, insert saline lock prior to the beginning of sedation, infusion, injection of imaging exam. Discontinue saline lock post exam. If Pt. has a central line or IVAD, may access for administration according to line specific nursing protocol. Once exam is complete flush line and de-access according to line specific nursing protocol in the CT contrast administration guidelines link. - atorvastatin (LIPITOR) 20 mg tablet Take 1 tablet by mouth once daily. - cholecalciferol, Vitamin D3, (VITAMIN D3) 1,250 mcg (50,000 unit) cap capsule Take 1 capsule by mouth one time a week. take with food - Valsartan-hydroCHLOROthiaz silverio (DIOVAN HCT) 80-12.5 mg per tablet Take 1 tablet by mouth once daily. - gabapentin (NEURONTIN) 300 mg capsule By mouth: 300mg qam, 600mg qHS - amLODIPine (NORVASC) 10 mg tablet Take 1 tablet by mouth once daily. - donepezil (ARICEPT) 5 mg tablet Take 1 tablet by mouth daily at bedtime. - metFORMIN (GLUCOPHAGE) 500 mg tablet Take 1 tablet by mouth two times a day with meals. - cyclobenzaprine (FLEXERIL) 5 mg tablet Take 1 tablet by mouth three times a day. - tamsulosin (FLOMAX) 0.4 mg Take 2 capsules by mouth daily at bedtime. - albuterol HFA (VENTOLIN HFA) 90 mcg/actuation inhaler Inhale 2 Puffs as instructed every 4 hours as needed for wheezing/shortness of breath. Problem List As Of Date 01/27/2025 Noted Resolved Sciatica [M54.30] 12/17/2007 09/21/2016 Intervertebral lumbar disc disorder with myelop* Patellar tendinitis [M76.50] 06/06/2011 04/28/2015 DVT of lower limb, acute (HCC) [I82.409] 07/13/2011 03/26/2017 Popliteal cyst [M71.20] 07/21/2011 04/28/2015 HTN (hypertension) [I10] 09/04/2011 Venous insufficiency [I87.2] 09/04/2011 Pain in joint, lower leg [M25.569] 11/02/2011 04/28/2015 Lumbar degenerative disc disease [M51.369] 07/09/2012 Hyperlipidemia with target LDL less than 100 [E*05/16/2013 Pappas's neuroma [G57.60] 05/16/2013 09/21/2016 Superficial spreading malignant melanoma of ski*12/03/2014 04/10/2024 DM (diabetes mellitus), 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/28/2015 Bilateral lumbar radiculopathy [M54.16] 04/28/2015 09/21/2016 Neoplasm of uncertain behavior of skin [D48.5] 03/27/2017 Chronic pain of both shoulders [M25.511, G89.29*04/12/2021 Neural foraminal stenosis of cervical spine [M4*05/20/2021 BPH associated with nocturia [N40.1, R35.1] 03/20/2022 Radiculopathy of lumbar region [M54.16] 05/09/2024 Cervical radiculopathy [M54.12] 05/27/2024 Cervical strain [S16.1XXA] 05/27/2024 Pre-op exam [Z01.818] 01/26/2025 Bladder calculus [N21.0] 01/26/2025 Hiatal hernia [K44.9] 01/27/2025 Gastroesophageal reflux disease without esophag*01/27/2025 DVT (deep venous thrombosis) ([facility]) [I82.409] 01/27/2025 Heart murmur [R01.1] 01/27/2025 Encounter Status:Closed by KRISTEN SHELTON on 01/27/25 Normal [facility] Yumiko 01-27-2025 CNPN Telephone (AKPST) -- CHARLINE SANCHEZ ([id number]) 1955 Date Time Provider Department 01/27/25 ABIOLA SORTO During your visit today, we recorded the following information about you: Abiola Sorto APRN.CNP 01/27/2025 1:59 PM Signed Mr. Sanchez was seen in [facility] today and a murmur was heard on exam. Patient denies any history of murmur in the past. This was reviewed with Dr. Vargas of anesthesia, and he asks that patient get an Echo prior to surgery to assess. There is no cardiac testing in [facility] or Care Everywhere. Please feel free to reach out with any questions or concerns. Thank you. Abiola Sorto APRN.CNP Pre-Anesthesia Testing [phone] Allergies As of Date: 01/27/2025 Noted Allergy Reaction KIDNEY BEANS 05/23/2011 8 - GI Upset LISINOPRIL 11/30/2011 3 - Cough SUNFLOWER SEED 05/23/2011 14 - Other: See Comments Comments: Adverse taste in mouth Date Reviewed: 01/27/2025 Reviewed by: Brando Taylor APRN.CNP - Fully Assessed Reason for Visit: Pre-Op Update [292] Prescriptions as of 01/28/2025 - trospium (SANCTURA) 20 mg tablet TAKE 1 TABLET BY MOUTH EVERY DAY - iv contrast (will be provided with radiology test) CT Urogram WO/W Inject, intravenously, once for 1 dose.No IV access, insert saline lock prior to the beginning of sedation, infusion, injection of imaging exam. Discontinue saline lock post exam. If Pt. has a central line or IVAD, may access for administration according to line specific nursing protocol. Once exam is complete flush line and de-access according to line specific nursing protocol in the CT contrast administration guidelines link. - atorvastatin (LIPITOR) 20 mg tablet Take 1 tablet by mouth once daily. - cholecalciferol, Vitamin D3, (VITAMIN D3) 1,250 mcg (50,000 unit) cap capsule Take 1 capsule by mouth one time a week. take with food - Valsartan-hydroCHLOROthiaz silverio (DIOVAN HCT) 80-12.5 mg per tablet Take 1 tablet by mouth once daily. - gabapentin (NEURONTIN) 300 mg capsule By mouth: 300mg qam, 600mg qHS - amLODIPine (NORVASC) 10 mg tablet Take 1 tablet by mouth once daily. - donepezil (ARICEPT) 5 mg tablet Take 1 tablet by mouth daily at bedtime. - metFORMIN (GLUCOPHAGE) 500 mg tablet Take 1 tablet by mouth two times a day with meals. - cyclobenzaprine (FLEXERIL) 5 mg tablet Take 1 tablet by mouth three times a day. - tamsulosin (FLOMAX) 0.4 mg Take 2 capsules by mouth daily at bedtime. - albuterol HFA (VENTOLIN HFA) 90 mcg/actuation inhaler Inhale 2 Puffs as instructed every 4 hours as needed for wheezing/shortness of breath. Problem List As Of Date 01/27/2025 Noted Resolved Sciatica [M54.30] 12/17/2007 09/21/2016 Intervertebral lumbar disc disorder with myelop* Patellar tendinitis [M76.50] 06/06/2011 04/28/2015 DVT of lower limb, acute (HCC) [I82.409] 07/13/2011 03/26/2017 Popliteal cyst [M71.20] 07/21/2011 04/28/2015 HTN (hypertension) [I10] 09/04/2011 Venous insufficiency [I87.2] 09/04/2011 Pain in joint, lower leg [M25.569] 11/02/2011 04/28/2015 Lumbar degenerative disc disease [M51.369] 07/09/2012 Hyperlipidemia with target LDL less than 100 [E*05/16/2013 Pappas's neuroma [G57.60] 05/16/2013 09/21/2016 Superficial spreading malignant melanoma of ski*12/03/2014 04/10/2024 DM (diabetes mellitus), 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/28/2015 Bilateral lumbar radiculopathy [M54.16] 04/28/2015 09/21/2016 Neoplasm of uncertain behavior of skin [D48.5] 03/27/2017 Chronic pain of both shoulders [M25.511, G89.29*04/12/2021 Neural foraminal stenosis of cervical spine [M4*05/20/2021 BPH associated with nocturia [N40.1, R35.1] 03/20/2022 Radiculopathy of lumbar region [M54.16] 05/09/2024 Cervical radiculopathy [M54.12] 05/27/2024 Cervical strain [S16.1XXA] 05/27/2024 Pre-op exam [Z01.818] 01/26/2025 Bladder calculus [N21.0] 01/26/2025 Hiatal hernia [K44.9] 01/27/2025 Gastroesophageal reflux disease without esophag*01/27/2025 DVT (deep venous thrombosis) ([facility]) [I82.409] 01/27/2025 Heart murmur [R01.1] 01/27/2025 Encounter Status:Closed by ABIOLA SORTO on 01/27/25 [facility] HISTORY PHYSICALon HISTORY PHYSICAL HNO ID: [id number] Author: BRANDO TAYLOR APRN.MUSIC COORDINATOR Service: ? Author Type: Nurse Practitioner Type: H&P Filed: 01/27/2025 08:25 Note Text: [facility] HISTORY AND PHYSICAL EXAMINATION SERVICE DATE: 01/27/2025 SERVICE TIME: 8:25 AM PRIMARY CARE PHYSICIAN: Viktor Ferrera MD Assessment Patient has the following medical conditions which may affect franky-operative course: Pre-op exam see note for medical conditions which may affect franky-operative course that were addressed at today's visit. BPH associated with nocturia Surgery scheduled 02/04/2025 Bladder calculus Surgery scheduled 02/04/2025 DM (diabetes mellitus), type 2 with neurological complications ([facility]) Metformin-instructed to hold DOS 09/2024 A1C 6.7% HTN (hypertension) [id number] to hold DOS Amlodipine-instructed to take DOS Hyperlipidemia with target LDL less than 100 Statin-Instructed to continue perioperatively 09/2024 lipid panel reviewed in [facility] Gastroesophageal reflux disease without esophagitis Occasional No medication + hiatal hernia-sometimes feel like food is getting stuck. DVT (deep venous thrombosis) ([facility]) H/O remote DVT- Heart murmur Heart murmur noted on exam. Patient has never known of heart murmur. No echo in [facility]. Patient denies syncope, near syncope, chest pain or shortness of breath. ANESTHESIA FINDINGS: Intubation History: No history of difficult intubation Significant Anesthesia Considerations: none Airway History: No history of difficult airway Torres Activity Status Index: METS: Climb a flight of stairs or walk up a hill (5.50 METs) DASI Score: 5.5 Patient denies any chest pain or undue shortness of breath with the above physical activity. ARISCAT Score: Age: 51-80 Preoperative SpO2: >=96% Respiratory infection in the last month: No Preoperative anemia: No Surgical incision: peripheral Duration of surgery: <2 hrs Emergency procedure: No ARISCAT Score: 3 I - PHYSICAL EVALUATION AIRWAY Patient intubated: No. DENTAL Dental findings: teeth intact. Dentures, upper: partial. II - ANESTHESIA PLAN Anesthetic Plan: general Beta Twila Monitoring Plan Post Procedure Analgesic Plan Prepared for Surgery: CONSULTS: Patient does not require consults for optimization at this time Planned Anesthetic: general The Following Tests/Procedures Have Been Initiated: No orders of the defined types were placed in this encounter. REASON FOR VISIT: Charline Sanchez is a 69 year old male who is scheduled for Procedure(s): LASER CYSTOLITHOLAPAXY BLADDER SIMPLE OR SMALL (LESS THAN 2.5 CM) ~ HOLMIUM (N/A) CYSTOSCOPY, RESECTION PROSTATE TRANSURETHRAL (N/A) at the request of Dr. Sheriff, David Buckner Jr., MD for routine HANDP. My final recommendation will be communicated back to the requesting physician by way of shared medical record or letter. Subjective The patient has the following: COVID-19 Immunization Status This patient has no relevant Health Maintenance data. CHIEF COMPLAINT: The reason for this visit is to perform a comprehensive review of the patient's past medical history, assess their current health status and obtain any additional testing required based on anesthesia guidelines. We will also identify any potential anesthesia problems or contraindications to the planned procedure. HPI: Patient is a 69 year old male who presents for pre anesthesia testing. He has h/o Bladder calculus and Benign prostatic hyperplasia. He has intermittent dysuria and gross hematuria. He C/O nocturia x 3-4, frequency, urgency and incontinence. After discussion with the surgeon patient agrees to surgical intervention. REVIEW OF SYSTEMS: General: Negative for: unintentional weight change, malaise and fever. Neurological: Negative for: headaches, seizures and strokes. Respiratory: Negative for: asthma, COPD, current cough, dyspnea, pneumonia within 6 weeks, URI < 2 weeks and obstructive sleep apnea. Cardiovascular: Positive for: DVT/PE, hyperlipidemia and hypertension Negative for: atrial fibrillation, CAD, chest pain and CHF. GI: + intermittent constipation Positive for: GERD Negative for: abdominal pain, nausea and vomiting. : See HPI. Positive for: BPH, dysuria and hematuria. Negative for: renal failure. Endocrine: Positive for: diabetes mellitus. Patient's diabetes mellitus is controlled by oral agents. Negative for: hyperthyroidism and hypothyroidism. Hematology: Negative for: anemia, factor V Leiden and von Willebrand disease. Oncology: No history of CA metastasis, chemo within 30 days, or radiotherapy within 90 days. No history of oncological symptoms or problems. Psych: Positive for: depression. Negative for: anxiety. Musculoskeletal: Positive for: back pain. Negative for: joint pain. Skin: Negative for lesions, rash and itching. Implanted (more content not included)... Normal [facility] CNOVon 12-29-2024 CNOV Office Visit (UROLAG ) -- CHARLINE SANCHEZ ([id number]) 1955 M Date Time Provider Department 12/29/24 8:30 AM DAVID SHERIFF JR URORAQUEL During your visit today, we recorded the following information about you: David Sheriff Jr., MD 12/30/2024 9:04 AM Signed CYSTOSCOPY PROCEDURE NOTE: Charline Sanchez is a 69 year old male who presents with hematuria gross for cystoscopy. Pt ID verified with patient: Yes Fire risk assessment done Procedure verified with patient: Yes Procedure confirmed with physician and administrative support coordinator: Yes UNIVERSAL PROTOCOL / SAFETY CHECKLIST Procedure to be Performed: cysto Sign In: A Moment of CARE was completed. Appropriate PPE (Personal Protective Equipment) worn by all providers involved with the procedure. Special equipment not required. Patient/Surrogate Stated/Verified: Patient name, Date of , Relevant allergies, and The intended procedure Time Out: Relevant labs, photos, and/or imaging studies have been reviewed. Intended patient and procedure match the source document(s) (e.g. consent, HANDP, associated studies [imaging, pathology]) match the intended patient and procedure. Consent obtained and matches the intended procedure. Yes. Correct side/site is not applicable. Medications required for this procedure are verified. Fire risk assessed and is not applicable. Implants: are not applicable. Sign Out: Specimens are all correctly labeled and sent. All instruments, equipment, possible retained foreign bodies are accounted for. Yes. The post-procedure plan of care has been communicated to the patient or surrogate. Pre procedure dx: gross hematuria, BPH Post procedure dx: same A urinalysis was performed revealing no evidence of infection. The benefits, risks, alternatives of the cystoscopy procedure and personnel were discussed with the patient. The verbal consent was obtained and the patient agrees to proceed. Procedure: The patient was placed on the procedure table in the supine position and prepped and draped in the usual sterile fashion. 2% Lidocaine Jelly was placed per urethra as an anesthetic in the standard fashion. Once adequate local anesthesia was achieved, the tip of the flexible cystoscope was carefully placed into the urethra under direct visual guidance. The scope was negotiated through the pendulous urethra to the level of the bulbar urethra with no evidence of stricture. 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 The bladder was entered and careful randall endoscopy was carried out. The posterior, superior and lateral chase and dome of the bladder were all well visualized and the scope was retroflexed upon itself. The findings were consistent with bladder calculus. At the conclusion of the procedure, the flexible cystoscope was removed atraumatically. The patient tolerated the procedure without complications. Patient was given standard post-procedure instructions, and was directed to complete the course of oral antibiotics and increase oral fluid intake as directed. ASSESSMENT/PLAN: Cystolitholapaxy, transurethral resection of the prostate All r/b/a of surgery discussed, infection, bleeding, damage to nearby structures, repeat surgery, nodular regrowth, bladder neck contracture, incontinence, impotence, lower urinary tract symptoms, repeat catheterizations. , heart attack, stroke, deep vein thrombosis, pulmonary embolus. Patient verbalized understanding and agrees to proceed. David Sheriff Jr, MD Referring Provider: JAYE EID [[id number]] Allergies As of Date: 12/29/2024 Noted Allergy Reaction KIDNEY BEANS 05/23/2011 8 - GI Upset LISINOPRIL 11/30/2011 3 - Cough SUNFLOWER SEED 05/23/2011 14 - Other: See Comments Comments: Adverse taste in mouth Date Reviewed: 12/29/2024 Reviewed by: Aleksandra Stoll MA - Fully Assessed Reason for Visit: Follow Up [171] Cystoscopy-1 [303] Primary Visit Diagnosis:Gross hematuria [R31.0] Other Visit Diagnoses:BPH with obstruction/lower urinary tract symptoms [N40.1, N13.8] Bladder stone [N21.0] Order(s):[] lidocaine urojet 2 % 6 mL topical gel (GLYDO)Disp: Rfl: [] ciprofloxacin HCl 500 mg tab(s) (CIPRO)Disp: Rfl: UA DIP, URINE (POC) [[id number]] Order #: [id number]. #:[id number] Prescriptions as of 12/30/2024 - iv contrast (will be provided with radiology test) CT Urogram WO/W Inject, intravenously, once for 1 dose.No IV access, insert saline lock prior to the beginning of sedation, infusion, injection of imaging exam. Discontinue saline lock post exam. If Pt. has a central line or IVAD, may access for administration according to line specific nursing protocol. Once exam is complete flush line and de-access according to line spe (more content not included)... Normal [facility] UA DIP, URINE (POC)on 2024 BILIRUBIN UA (POCT) Negative Negative [facility] CLARITY UA (POCT) Clear [facility] COLOR UA (POCT) Yellow [facility] GLUCOSE UA (POCT) 250 mg/dL Abnormal Negative [facility] Hemoglobin Ql (U) Moderate Abnormal Negative [facility] Interpretation and review of laboratory results Abnormal [facility] KETONE UA (POCT) Negative Negative mg/dL [facility] LEUKOCYTES UA (POCT) Negative Negative [facility] NITRITE UA (POCT) Negative Negative [facility] PH UA (POCT) 5.5 4.5 - 8.0 [facility] Protein Ql (U) Negative Negative mg/dL [facility] SPECIFIC GRAVITY UA (POCT) 1.02 1.005 - 1.030 [facility] UROBILINOGEN UA (POCT) 1 Normal E.U./dL [facility] Location:[facility], [address] [facility] [address], [place], [address] [place] [address] POINT OF CARE [facility] CNNURSEon 12-10-2024 CNNURSE Nurse Visit (GENSWS) -- CHARLINE SANCHEZ ([id number]) 1955 M Date Time Provider Department 12/10/24 3:00 PM NURSE [facility] GENSWS During your visit today, we recorded the following information about you: Kristen Shelton LPN 12/10/2024 3:32 PM Signed The sites, neck and back, was assessed and two mattress sutures from neck and three mattress sutures from back were removed as ordered. Incision line was clean, dry and intact. Edges were well approximated. Steri strips placed. No dressing required. Patient instructed on wound care and verbalized understanding. MARY BETH Avina Kimberly, LPN 12/10/2024 3:03 PM Signed The following instructions are important for you related to your office visit today with the [facility] General Surgeons. Instructions After SUTURE REMOVAL Your sutures have been removed today. If steristrips were placed on the incision, they should stay on for approximately 1 week. If they fall off in less time, they should be replaced. If they are on for over 1 week, they can be gently removed. If there is continued bleeding, you should contact our office immediately. You do not need to leave a dressing on the incision. If the wound shows signs of redness, inflammation, or purulent drainage, you should contact our office immediately. You should keep the wound dry for the first two days. After that time, you may wash the wound with gentle soap and water. The wound should not be immersed in a pool, bathtub, or even hot tub. If you note any additional difficulties, questions, or concerns, you should contact our office immediately @ [phone] and ask to be transferred to the General Surgery department. Allergies As of Date: 12/10/2024 Noted Allergy Reaction KIDNEY BEANS 05/23/2011 8 - GI Upset LISINOPRIL 11/30/2011 3 - Cough SUNFLOWER SEED 05/23/2011 14 - Other: See Comments Comments: Adverse taste in mouth Date Reviewed: 12/08/2024 Reviewed by: Kristen Mujica, RT(R) - Fully Assessed Reason for Visit: Suture Removal [105] Primary Visit Diagnosis:Visit for suture removal [Z48.02] Prescriptions as of 12/10/2024 - iv contrast (will be provided with radiology test) CT Urogram WO/W Inject, intravenously, once for 1 dose.No IV access, insert saline lock prior to the beginning of sedation, infusion, injection of imaging exam. Discontinue saline lock post exam. If Pt. has a central line or IVAD, may access for administration according to line specific nursing protocol. Once exam is complete flush line and de-access according to line specific nursing protocol in the CT contrast administration guidelines link. - atorvastatin (LIPITOR) 20 mg tablet Take 1 tablet by mouth once daily. - cholecalciferol, Vitamin D3, (VITAMIN D3) 1,250 mcg (50,000 unit) cap capsule Take 1 capsule by mouth one time a week. take with food - Valsartan-hydroCHLOROthiaz silverio (DIOVAN HCT) 80-12.5 mg per tablet Take 1 tablet by mouth once daily. - gabapentin (NEURONTIN) 300 mg capsule By mouth: 300mg qam, 600mg qHS - amLODIPine (NORVASC) 10 mg tablet Take 1 tablet by mouth once daily. - donepezil (ARICEPT) 5 mg tablet Take 1 tablet by mouth daily at bedtime. - metFORMIN (GLUCOPHAGE) 500 mg tablet Take 1 tablet by mouth two times a day with meals. - cyclobenzaprine (FLEXERIL) 5 mg tablet Take 1 tablet by mouth three times a day. - trospium (SANCTURA) 20 mg tablet Take 1 tablet by mouth once daily. - tamsulosin (FLOMAX) 0.4 mg Take 2 capsules by mouth daily at bedtime. - albuterol HFA (VENTOLIN HFA) 90 mcg/actuation inhaler Inhale 2 Puffs as instructed every 4 hours as needed for wheezing/shortness of breath. Problem List As Of Date 12/10/2024 Noted Resolved Sciatica [M54.30] 12/17/2007 09/21/2016 Intervertebral lumbar disc disorder with myelop* Patellar tendinitis [M76.50] 06/06/2011 04/28/2015 DVT of lower limb, acute (HCC) [I82.409] 07/13/2011 03/26/2017 Popliteal cyst [M71.20] 07/21/2011 04/28/2015 HTN (hypertension) [I10] 09/04/2011 Venous insufficiency [I87.2] 09/04/2011 Pain in joint, lower leg [M25.569] 11/02/2011 04/28/2015 Lumbar degenerative disc disease [M51.369] 07/09/2012 Hyperlipidemia with target LDL less than 100 [E*05/16/2013 Pappas's neuroma [G57.60] 05/16/2013 09/21/2016 Superficial spreading malignant melanoma of ski*12/03/2014 04/10/2024 DM (diabetes mellitus), 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 Normal [facility] CT UROGRAM WO/W IVCONon 06-1 CT UROGRAM WO/W IVCON * * *Final Report* * * DATE OF EXAM: Dec 09 2024 1:48PM [facility] 0560 - CT UROGRAM WO/W IVCON / PROCEDURE REASON: Gross hematuria * * * * Physician Interpretation * * * * EXAMINATION: CT ABDOMEN AND PELVIS WITHOUT AND WITH IV CONTRAST, INCLUDING EXCRETORY PHASE IMAGING (CT UROGRAM) 3D RECONSTRUCTIONS CLINICAL HISTORY: Gross hematuria. TECHNIQUE: CT urogram protocol including unenhanced, renal parenchymal phase and excretory phase renal imaging was obtained following IV contrast. Normal saline was also administered IV. No oral contrast was given. 3D image post-processing was performed and archived at the request of the referring physician, on the CT scanner workstation without concurrent physician supervision. MQ: CTU_2 Contrast: IV: 125 ml of Omnipaque 350 IV Saline: 100 ml of 0.9% NACL Solution Oral Contrast: None CT Radiation dose: Integrated dose-length product (DLP) for this visit = 2205 mGy*cm. CT Dose Reduction Employed: Automated exposure control(AEC) and iterative recon COMPARISON: None. RESULT: Kidneys and urinary tract: Right: No renal or ureteral calculi. No hydronephrosis or hydroureter. No upper tract urothelial filling defects or strictures detected. Left: No renal or ureteral calculi. No hydronephrosis or hydroureter. No upper tract urothelial filling defects or strictures detected. Bladder: There are multiple layering stones within the dependent portion of the urinary bladder, the largest of which measures 16 mm. Abdomen and Pelvis: Liver: No mass. Biliary: No bile duct dilation. Gallbladder is unremarkable. Spleen: No mass. No splenomegaly. Pancreas: No mass or duct dilation. Adrenals: Minimal thickening of the left adrenal gland, likely due to adenomatous hyperplasia. GI tract: Small hiatal hernia. No bowel obstruction. Lymph nodes: No abdominal or pelvic lymphadenopathy. Mesentery/Peritoneum: No ascites or mass. Pelvis: Enlargement of the prostate gland. Bones and Soft Tissues: Small fat-containing left inguinal hernia. Lower thorax: Limited evaluation of the lower chest demonstrates a 3 mm pulmonary nodule in the right middle lobe on slice 1 of series 5. This is only partially imaged. Calcification near the aortic valve leaflets, this can be seen in the setting of aortic stenosis Localizer images: No additional findings. IMPRESSION: 1. Multiple layering stones within the dependent portion of the urinary bladder, the largest of which measures 16 mm. No renal or ureteral calculi. No hydronephrosis or hydroureter. 2. Enlargement the prostate gland. 3. Limited evaluation of the lower chest demonstrates a 3 mm pulmonary nodule in the right middle lobe. In a low-risk patient, this requires no additional follow-up. In a high-risk patient, this can undergo a 12 month follow-up chest CT without contrast. ACTIONABLE RESULT: FOLLOW-UP Acuity: Actionable Findings: Thoracic-Lung nodules Routing code: RI_1 Recommendation: CT Chest WO IVCON Time Frame: Additional evaluation as described in the impression COMMUNICATION: Results will be communicated with the ordering provider via [employer] staff message or phone message by Imaging Support Services within 2 business days of report finalization. --END OF FINDING-- Algorithms for management of incidental imaging findings can be found on the [facility] Intranet Sharepoint site at: [email or web address] [email or web address] Hi Lift Operator: NANCY Transcribe Date/Time: Dec 16 2024 6:56A Dictated by : DAVID BUSTILLO MD This examination was interpreted and the report reviewed and electronically signed by: DAVID BUSTILLO MD on Dec 16 2024 7:08AM EST [id number] ACTIONABLE Invalid Interpretation Code [facility] Creatinine + eGFR Pnl SerPlB ldon 12-09-2024 Creatinine and Glomerular filtration rate.predicted panel (S/P/Bld) 92 mL/min/1.73m??? Normal >=60 [facility] Comment on above: Order Comment: Speci men Type: BLOOD SPECIMEN Ordering Facility: [facility] Address: [address] [place] [address] Result Comment: Marsha mated Glomerular Filtration Rate (eGFR) is calculated using the 2020 CKD-EPI creatinine equation. This equation utilizes serum creatinine, sex, and age as parameters. The creatinine assay has traceable calibration to isotope dilution-mass spectrometry. Refer to KDIGO guidelines for clinical interpretation. In patients with unstable renal function, e.g. those with acute kidney injury, the eGFR may not accurately reflect actual GFR. Performed By: #### 4 5066-8 #### [facility] CLIA [id number] [address] [place] [address] [place] Creatinine and Glomerular fi ltration rate.predicted panel (S/P/Bld)on 12-09-2024 Creatinine [Mass/Vol] 0.89 mg/dL Normal 0.73-1.22 [facility] Comment on above: Order Comment: Speci men Type: BLOOD SPECIMEN Ordering Facility: [facility] Address: [address] [place] [address] Performed By: #### 4 5066-8 #### [facility] IA [id number] [address] [place] [address] [place] PSA SerPl-mCncon 12-09-2024 Prostate specific Ag [Mass/Vol] 4.00 ng/mL High <2.60 [facility] Comment on above: Order Comment: Speci men Type: BLOOD SPECIMEN Ordering Facility: [facility] Address: [address] [place] [address] Result Comment: Bernice l PSA test methodology used is the Electrochemiluminescence Immunoassay by [employer]. Total PSA values by differing methodologies cannot be interchanged. For an individual patient, the significance of a PSA level should be interpreted in a broad clinical context, including age, race, family history, digital rectal exam, prostate size, results of prior testing (prostate biopsy, free PSA, PCA3), and use of 5-alpha reductase inhibitors. Considering the high incidence of asymptomatic cancer in the general population that may not pose an ultimate risk to a patient, the decision to recommend urological evaluation or prostate biopsy should be individualized after consideration of all these factors. REFERENCE: Radu Pandey M.D., M.P.H., Sergio Hu M.D., Ph.D., Kenan Neff M.D., Kristen Rodriges, M.P.H., Fanny Garcia, Sc.D. Effect of Verification Bias on Screening for Prostate Cancer by Measurement of Prostatic Specific Antigen. N Engl J Med 2003,349:335-42. Performed By: #### 2 4323-8, 27887-4 #### [facility] CLIA [id number] [address] [place] [address] [place] CNNURSEon 12-03-2024 CNNURSE Nurse Visit (GENSWS) -- CHARLINE SANCHEZ ([id number]) 1955 M Date Time Provider Department 12/03/24 8:00 AM NURSE [facility] GENSWS During your visit today, we recorded the following information about you: Eugene John RN 12/03/2024 9:03 AM Signed TA temp 97.5. Removed 5 simple sutures. 2 from rt neck surgical site. Removed 3 simple sutures from back surgical site. Steri strips placed on back, 3 mattress sutures remain on back. 2 mattress sutures remain on rt neck area. Both sites were covered with opsite bandage. Neither wound showed any redness, swelling or discharge. Pt did complain of hypersensitivity to hair follicles near the sites. Allergies As of Date: 12/03/2024 Noted Allergy Reaction KIDNEY BEANS 05/23/2011 8 - GI Upset LISINOPRIL 11/30/2011 3 - Cough SUNFLOWER SEED 05/23/2011 14 - Other: See Comments Comments: Adverse taste in mouth Date Reviewed: 11/27/2024 Reviewed by: Tricia Antonio MD - Fully Assessed Primary Visit Diagnosis:Visit for suture removal [Z48.02] Prescriptions as of 12/03/2024 - iv contrast (will be provided with radiology test) CT Urogram WO/W Inject, intravenously, once for 1 dose.No IV access, insert saline lock prior to the beginning of sedation, infusion, injection of imaging exam. Discontinue saline lock post exam. If Pt. has a central line or IVAD, may access for administration according to line specific nursing protocol. Once exam is complete flush line and de-access according to line specific nursing protocol in the CT contrast administration guidelines link. - atorvastatin (LIPITOR) 20 mg tablet Take 1 tablet by mouth once daily. - cholecalciferol, Vitamin D3, (VITAMIN D3) 1,250 mcg (50,000 unit) cap capsule Take 1 capsule by mouth one time a week. take with food - Valsartan-hydroCHLOROthiaz silverio (DIOVAN HCT) 80-12.5 mg per tablet Take 1 tablet by mouth once daily. - gabapentin (NEURONTIN) 300 mg capsule By mouth: 300mg qam, 600mg qHS - amLODIPine (NORVASC) 10 mg tablet Take 1 tablet by mouth once daily. - donepezil (ARICEPT) 5 mg tablet Take 1 tablet by mouth daily at bedtime. - metFORMIN (GLUCOPHAGE) 500 mg tablet Take 1 tablet by mouth two times a day with meals. - cyclobenzaprine (FLEXERIL) 5 mg tablet Take 1 tablet by mouth three times a day. - trospium (SANCTURA) 20 mg tablet Take 1 tablet by mouth once daily. - tamsulosin (FLOMAX) 0.4 mg Take 2 capsules by mouth daily at bedtime. - albuterol HFA (VENTOLIN HFA) 90 mcg/actuation inhaler Inhale 2 Puffs as instructed every 4 hours as needed for wheezing/shortness of breath. Problem List As Of Date 12/03/2024 Noted Resolved Sciatica [M54.30] 12/17/2007 09/21/2016 Intervertebral lumbar disc disorder with myelop* Patellar tendinitis [M76.50] 06/06/2011 04/28/2015 DVT of lower limb, acute (HCC) [I82.409] 07/13/2011 03/26/2017 Popliteal cyst [M71.20] 07/21/2011 04/28/2015 HTN (hypertension) [I10] 09/04/2011 Venous insufficiency [I87.2] 09/04/2011 Pain in joint, lower leg [M25.569] 11/02/2011 04/28/2015 Lumbar degenerative disc disease [M51.369] 07/09/2012 Hyperlipidemia with target LDL less than 100 [E*05/16/2013 Pappas's neuroma [G57.60] 05/16/2013 09/21/2016 Superficial spreading malignant melanoma of ski*12/03/2014 04/10/2024 DM (diabetes mellitus), 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/28/2015 Bilateral lumbar radiculopathy [M54.16] 04/28/2015 09/21/2016 Neoplasm of uncertain behavior of skin [D48.5] 03/27/2017 Chronic pain of both shoulders [M25.511, G89.29*04/12/2021 Neural foraminal stenosis of cervical spine [M4*05/20/2021 BPH associated with nocturia [N40.1, R35.1] 03/20/2022 Radiculopathy of lumbar region [M54.16] 05/09/2024 Cervical radiculopathy [M54.12] 05/27/2024 Cervical strain [S16.1XXA] 05/27/2024 Encounter Status:Closed by EUGENE JOHN on 12/03/24 [facility] CNOVon 11-26-2024 CNOV Office Visit (GENSWS ) -- LAURACHARLINE ([id number]) 1955 M Date Time Provider Department 11/26/24 1:15 PM TRICIA ANTONIO During your visit today, we recorded the following information about you: Kristen Shelton LPN 11/27/2024 5:47 AM Signed UNIVERSAL PROTOCOL / SAFETY CHECKLIST Procedure to be Performed: Excision of right neck skin lesion, excision of back sebaceous cyst Sign In: A Moment of CARE was completed. Appropriate PPE (Personal Protective Equipment) worn by all providers involved with the procedure. Special equipment not required. Patient/Surrogate Stated/Verified: Patient name, Date of , Relevant allergies, and The intended procedure Time Out: Relevant labs, photos, and/or imaging studies are not applicable. Intended patient and procedure match the source document(s) (e.g. consent, HANDP, associated studies [imaging, pathology]) match the intended patient and procedure. Consent obtained and matches the intended procedure. Yes. Correct side/site has been marked and visible. Medications required for this procedure are verified. Fire risk assessed and is not applicable. Implants: are not applicable. Sign Out: Specimens not collected. All instruments, equipment, possible retained foreign bodies are accounted for. Yes. The post-procedure plan of care has been communicated to the patient or surrogate. MARY BETH Dyer Kimberly, LPN 11/26/2024 2:46 PM Addendum The following instructions are important for you related to your office visit today with the [facility] General Surgeons. Instructions After SKIN EXCISION-SUTURES You can remove the dressing in two days. If the dressing becomes soaked or had significant drainage, the dressing should be changed. If there is minor bleeding from this skin edge, you should hold pressure on the incision until the bleeding stops. If there is continued bleeding, you should contact our office immediately. You do not need to leave a dressing on the wound after two days. If the wound shows signs of redness, inflammation, or purulent drainage, you should contact our office immediately. You should keep the wound dry for the first two days. After that time, you may wash the wound with gentle soap and water. The wound should not be immersed in a pool, bathtub, or even hot tub. We prefer to check the incision and remove the stitches in our office when ready. Please make an appointment to return to our office in one week to remove simple sutures and return in two weeks to remove mattress sutures. Neck: two mattress sutures, three simple sutures. Back: three mattress sutures, four simple sutures. Please do not remove the stitches yourself without approval from our office. If you note any additional difficulties, questions, or concerns, you should contact our office immediately @ [phone] and ask to be transferred to the General Surgery department. Tricia Antonio MD 11/27/2024 5:47 AM Signed FOLLOW UP VISIT - SKIN LESION NAME: Charline [facility] NO.: [id number] DATE OF SERVICE: 11/26/2024 : 1955 REFERRING PHYSICIAN: Viktor Ferrera MD Charline is a patient I am following for a sebaceous cyst on his back and sebaceous cyst on his right neck. Charline returns today for the procedure. Charline has not taken aspirin or aspirin products for the past 7 days. VITALS: There were no vitals taken for this visit. On examination, he has a 2 cm sebaceous cyst on his lateral right neck and a 3 cm sebaceous cyst on his upper mid back PROCEDURE: EXCISION OF SEBACEOUS CYST - NECK AND BACK The risks, benefits and anticipated outcomes of the procedure, the risks and benefits of the alternatives to the procedure, and the roles and tasks of the personnel to be involved, were discussed with the patient, and the patient consents to the procedure and agrees to proceed. I verify that I personally obtained the patient's consent. Neck - The patient`s skin was prepped and draped in the usual fashion. A combination of Lidocaine and Marcaine was injected into the skin. An eliptical incision was made over the sebaceous cyst. The sebaceous cyst was dissected from it's subcutaneous attachments and removed in its entirety. The specimen measured 2 by 1 cm. This was not sent to pathology. A vessel was controlled with 3-0 Vicryl suture. The skin was then closed with interrupted 4-0 nylon sutures. The patient tolerated the procedure well. Back - The patient`s skin was prepped and draped in the usual fashion. A combination of Lidocaine and Marcaine was injected into the skin. An eliptical incision was made over the sebaceous cyst. The sebaceous cyst was dissected from it's subcutaneous attachments and removed in its entirety. The specimen measured 3 by 2 cm. This was not sent to pathology. A vessel was controlled wit (more content not included)... Normal [facility] Bacteria Ur Culton Bacteria identified Cx Nom (U) ORGANISM ID: 1 <10,000 CFU/ml Lactose negative gram negative bacilli Insignificant colony count. No further workup. Normal [facility] Comment on above: Performed By: #### 6 30-4 ####[facility] LABCLIA [id number] [address] OF [facility] CNOVon 11-25-2024 CNOV Office Visit (UROLWS ) -- CHARLINE SANCHEZ ([id number]) 1955 M Date Time Provider Department 11/25/24 9:30 AM JAYE EID During your visit today, we recorded the following information about you: Temperature Pulse Respiration Blood pressure 97.7 degrees 72/minute 12/minute 138/82 Weight Height 91.6 kg 1.727 m Kristen Shelton LPN 11/25/2024 10:51 AM Signed Verified name and date of . CC Post Void Residual HPI: Charline Sanchez is a 69 year old male. The patient is here now for an appointment with YUMIKO [place], [place], [facility]. Procedure: Explained procedure to patient and verbalizes understanding. Performed a PVR. Patient urinated and instructed to empty bladder as much as possible just prior to having PVR done using bladder ultrasound scanner. Results of scan: 0 mL The patient tolerated the procedure well. Plan: Appointment with Jaye. Jaye Eid PA-C 11/25/2024 10:51 AM Signed [facility] EST PATIENT CLINIC NOTE (M) Some elements copied from his previous note, which have been updated where appropriate, and all reflect current medical decision making from date of this visit. Note was generated by [employer] and edited as appropriate SERVICE DATE: November 25, 2024 NAME: Charline Sanchez GENDER: male CHIEF COMPLAINT: history of BPH, presenting for follow-up and evaluation of hematuria. HISTORY OF PRESENT ILLNESS: The patient is a 69-year-old male with a history of BPH, presenting for follow-up and evaluation of hematuria. Hematuria: - Reports a red tint in urine, x2-3 times over the past 6 months. - Describes the tint as settling at the base of the toilet bowl, with the rest of the urine appearing clear. - Denies any recent episodes of hematuria today. - No history of recent kidney stones; had a kidney stone many years ago. BPH: - Taking tamsulosin 1 capsule at bedtime. - Taking trospium at bedtime for urgency and overactive bladder. - Continues pelvic floor physical therapy. - Last PSA in April 2024 was 4.33. - No current symptoms reported. > We discussed the common causes of urinary frequency and urgency, and restricting water intake In hopes to mitigate the need to urinate, we discussed how this behavior more often worsen the problem not improving it, > We discussed increasing daily water intake to 64-84 oz 7a -7p and try to reduce bladder irritants, caffeine, alcohol and acid foods and drink. > Bladder irritants handout available to patient. LABS: PSA (ng/mL) Date Value 04/07/2024 4.33 10/08/2023 4.03 03/08/2022 4.07 02/09/2021 4.46 PSA Screening (ng/mL) Date Value 03/28/2023 3.95 06/29/2020 4.67 Creatinine Date Value Ref Range Status 10/13/2024 0.95 0.73 - 1.22 mg/dL Final 04/07/2024 0.96 0.73 - 1.22 mg/dL Final 10/08/2023 0.89 0.73 - 1.22 mg/dL Final No results found for: TESTOST Hematocrit (%) Date Value 10/10/2023 48.8 06/29/2020 47.1 PSA (ng/mL) Date Value 04/07/2024 4.33 10/08/2023 4.03 03/08/2022 4.07 02/09/2021 4.46 PSA Screening (ng/mL) Date Value 03/28/2023 3.95 06/29/2020 4.67 MEDICATIONS: atorvastatin (LIPITOR) 20 mg tablet Take 1 tablet by mouth once daily. cholecalciferol, Vitamin D3, (VITAMIN D3) 1,250 mcg (50,000 unit) cap capsule Take 1 capsule by mouth one time a week. take with food Valsartan-hydroCHLOROthiaz silverio (DIOVAN HCT) 80-12.5 mg per tablet Take 1 tablet by mouth once daily. gabapentin (NEURONTIN) 300 mg capsule By mouth: 300mg qam, 600mg qHS amLODIPine (NORVASC) 10 mg tablet Take 1 tablet by mouth once daily. donepezil (ARICEPT) 5 mg tablet Take 1 tablet by mouth daily at bedtime. metFORMIN (GLUCOPHAGE) 500 mg tablet Take 1 tablet by mouth two times a day with meals. cyclobenzaprine (FLEXERIL) 5 mg tablet Take 1 tablet by mouth three times a day. trospium (SANCTURA) 20 mg tablet Take 1 tablet by mouth once daily. tamsulosin (FLOMAX) 0.4 mg Take 2 capsules by mouth daily at bedtime. albuterol HFA (VENTOLIN HFA) 90 mcg/actuation inhaler Inhale 2 Puffs as instructed every 4 hours as needed for wheezing/shortness of breath. iv contrast (will be provided with radiology test) CT Urogram WO/W Inject, intravenously, once for 1 dose.No IV access, insert saline lock prior to the beginning of sedation, infusion, injection of imaging exam. Discontinue saline lock post exam. If Pt. has a central line or IVAD, may access for administration according to line specific nursing protocol. Once exam is complete flush line and de-access according to line specific nursing protocol in the CT contrast administration guidelines link. 0.9 % sodium chloride (NACL 0.9%) infusion Inject 150 mL/hr intravenously one time only for 1 dose. Administer at rate defined per CT contrast administration specif (more content not included)... Normal [facility] Yumiko 11-25-2024 CNPN Telephone (AKURFL) -- CHARLINE SANCHEZ ([id number]) 1955 M Date Time Provider Department 11/25/24 DAVID SHERIFF JR AKURF During your visit today, we recorded the following information about you: Holly Mejias 11/25/2024 1:33 PM Signed Pt confirmed cysto with Dr. Sheriff in [facility] 12/29/24 @ 8:[address] prior 12/09. Ref by Sylvia Eid for hematuria. Shakira Allergies As of Date: 11/25/2024 Noted Allergy Reaction KIDNEY BEANS 05/23/2011 8 - GI Upset LISINOPRIL 11/30/2011 3 - Cough SUNFLOWER SEED 05/23/2011 14 - Other: See Comments Comments: Adverse taste in mouth Date Reviewed: 11/25/2024 Reviewed by: Kristen Shelton LPN - Fully Assessed Reason for Visit: Appointment [186] Prescriptions as of 11/25/2024 - iv contrast (will be provided with radiology test) CT Urogram WO/W Inject, intravenously, once for 1 dose.No IV access, insert saline lock prior to the beginning of sedation, infusion, injection of imaging exam. Discontinue saline lock post exam. If Pt. has a central line or IVAD, may access for administration according to line specific nursing protocol. Once exam is complete flush line and de-access according to line specific nursing protocol in the CT contrast administration guidelines link. - 0.9 % sodium chloride (NACL 0.9%) infusion Inject 150 mL/hr intravenously one time only for 1 dose. Administer at rate defined per CT contrast administration specifications. To be provided with radiology test. - atorvastatin (LIPITOR) 20 mg tablet Take 1 tablet by mouth once daily. - cholecalciferol, Vitamin D3, (VITAMIN D3) 1,250 mcg (50,000 unit) cap capsule Take 1 capsule by mouth one time a week. take with food - Valsartan-hydroCHLOROthiaz silverio (DIOVAN HCT) 80-12.5 mg per tablet Take 1 tablet by mouth once daily. - gabapentin (NEURONTIN) 300 mg capsule By mouth: 300mg qam, 600mg qHS - amLODIPine (NORVASC) 10 mg tablet Take 1 tablet by mouth once daily. - donepezil (ARICEPT) 5 mg tablet Take 1 tablet by mouth daily at bedtime. - metFORMIN (GLUCOPHAGE) 500 mg tablet Take 1 tablet by mouth two times a day with meals. - cyclobenzaprine (FLEXERIL) 5 mg tablet Take 1 tablet by mouth three times a day. - trospium (SANCTURA) 20 mg tablet Take 1 tablet by mouth once daily. - tamsulosin (FLOMAX) 0.4 mg Take 2 capsules by mouth daily at bedtime. - albuterol HFA (VENTOLIN HFA) 90 mcg/actuation inhaler Inhale 2 Puffs as instructed every 4 hours as needed for wheezing/shortness of breath. Problem List As Of Date 11/25/2024 Noted Resolved Sciatica [M54.30] 12/17/2007 09/21/2016 Intervertebral lumbar disc disorder with myelop* Patellar tendinitis [M76.50] 06/06/2011 04/28/2015 DVT of lower limb, acute (HCC) [I82.409] 07/13/2011 03/26/2017 Popliteal cyst [M71.20] 07/21/2011 04/28/2015 HTN (hypertension) [I10] 09/04/2011 Venous insufficiency [I87.2] 09/04/2011 Pain in joint, lower leg [M25.569] 11/02/2011 04/28/2015 Lumbar degenerative disc disease [M51.369] 07/09/2012 Hyperlipidemia with target LDL less than 100 [E*05/16/2013 Pappas's neuroma [G57.60] 05/16/2013 09/21/2016 Superficial spreading malignant melanoma of ski*12/03/2014 04/10/2024 DM (diabetes mellitus), 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/28/2015 Bilateral lumbar radiculopathy [M54.16] 04/28/2015 09/21/2016 Neoplasm of uncertain behavior of skin [D48.5] 03/27/2017 Chronic pain of both shoulders [M25.511, G89.29*04/12/2021 Neural foraminal stenosis of cervical spine [M4*05/20/2021 BPH associated with nocturia [N40.1, R35.1] 03/20/2022 Radiculopathy of lumbar region [M54.16] 05/09/2024 Cervical radiculopathy [M54.12] 05/27/2024 Cervical strain [S16.1XXA] 05/27/2024 Encounter Status:Closed by HOLLY MEJIAS on 11/25/24 Normal [facility] CYTOLOGY NON-GYNon 5 AP DISCLAIMER Normal [facility] Comment on above: Order Comment: Speci men Type: URINE SPECIMENOrdering Facility: [facility] Address: [address] [place] [address] Result Comment: Eldon cobos Developed Test (LDT) Disclaimer: Performance characteristics of immunohistochemical, immunofluorescent, and chromogenic in-situ hybridization tests have been determined by the performing laboratory within [facility]'s [facility] Pathology and Laboratory Medicine Department ([facility], [facility], [facility], [facility], [facility], or [facility]) in a manner consistent with CLIA requirements. One or more of these tests may not have been cleared or approved by the FDA. [facility] is regulated under CLIA as qualified to perform high-complexity testing. These tests are used for clinical purposes. These should not be regarded as investigational or for research. Positive and negative controls stain appropriately. Performed By: #### C YTONOMuna ####[facility] LABCLIA [id number] [place] [address] [place] CASE REPORT Normal [facility] Comment on above: Order Comment: Speci men Type: URINE SPECIMENOrdering Facility: [facility] Address: [address] [place] [address] Result Comment: [facility] Cytology Report Case: [id number] Authorizing Provider: Jaye Eid PA-C Collected: 11/25/2024 10:35 AM Ordering Location: Urology Received: 11/25/2024 04:38 PM Pathologist: Caryn Tong MD Specimen: Urine, Midstream Performed By: #### C YTONON ####[facility] LABCLIA [id number] [place] [address] [place] CLINICAL HISTORY gross hematuria Normal [facility] Comment on above: Order Comment: Speci men Type: URINE SPECIMENOrdering Facility: [facility] Address: [address] [place] [address] Performed By: #### C YTONON ####[facility] LABCLIA [id number] [place] [address] [place] FINAL DIAGNOSIS Normal [facility] Comment on above: Order Comment: Speci men Type: URINE SPECIMENOrdering Facility: [facility] Address: [address] [place] [address] Result Comment: A - Urine, Midstream Negative for high-grade urothelial carcinoma. at 1326 EDT Performed By: #### C YTONON ####[facility] LABCLIA [id number] [place] [address] [place] FINAL PERFORMING LAB Normal [facility] Comment on above: Order Comment: Speci men Type: URINE SPECIMENOrdering Facility: [facility] Address: [address] [place] [address] Result Comment: Tech nical component, licensed occupational therapy assistant screening performed at: [facility], [address] [place] [address] CLIA: [id number] Diagnostic interpretation performed at: [facility], [address] [place] [address] CLIA# [id number] Material Expeditor: Walter Bradley MD Performed By: #### C YTONON ####[facility] LABCLIA [id number] [place] [address] [place] GROSS DESCRIPTION Normal [facility] Comment on above: Order Comment: Speci men Type: URINE SPECIMENOrdering Facility: [facility] Address: [address] [place] [address] Result Comment: A. U rine, Midstream 7 cc hazy yellow fluid with particles. ThinPrep prepared. Performed By: #### C YTONON ####[facility] LABCLIA [id number] [place] [address] [place] UA DIP, URINE (POC)on 2024 BILIRUBIN UA (POCT) Negative Negative [facility] CLARITY UA (POCT) Slightly Cloudy [facility] COLOR UA (POCT) Dark yellow [facility] GLUCOSE UA (POCT) Negative Negative mg/dL [facility] Hemoglobin Ql (U) Small Abnormal Negative [facility] Interpretation and review of laboratory results Abnormal [facility] KETONE UA (POCT) Negative Negative mg/dL [facility] LEUKOCYTES UA (POCT) Negative Negative [facility] NITRITE UA (POCT) Negative Negative [facility] PH UA (POCT) 6 4.5 - 8.0 [facility] Protein Ql (U) 100 mg/dL Abnormal Negative [facility] SPECIFIC GRAVITY UA (POCT) 1.025 1.005 - 1.030 [facility] UROBILINOGEN UA (POCT) 1 Normal E.U./dL [facility] Location:[facility], [address], [place], [address] [facility] POINT OF CARE [facility] CNOVon 10-30-2024 CNOV Office Visit (GENSWS ) -- LAURA,CHARLINE A ([id number]) 1955 M Date Time Provider Department 10/30/24 9:30 AM TRICIA ANTONIO During your visit today, we recorded the following information about you: Temperature Pulse Respiration Blood pressure 97.9 degrees 74/minute 14/minute 120/74 Weight Height 90.7 kg 1.727 m Kristen Shelton LPN 10/31/2024 8:16 AM Signed REVIEW OF SYSTEMS: General: The patient denies fatigue, denies weight loss, denies weight gain, denies feeling hot, and denies feelings of cold. Eyes: The patient denies glaucoma, denies eye injury/surgery, wears glasses or contacts. Ear/Nose/Throat: The patient notes allergies, denies hayfever, denies ear infections, and denies bloody noses. Cardiovascular: The patient denies chest pain, denies heart disease, notes high blood pressure,denies cardiac stent, denies prior heart attack, denies irregular heart beat, notes high cholesterol, denies poor circulation, denies heart failure, other cardiac issues, denies claudication, denies cold feet, denies peripheral arterial stent. Respiratory: The patient denies tuberculosis, denies pneumonia, denies frequent cough, denies pulmonary embolism, denies shortness of breath, and denies coughing up blood. Gastrointestinal: The patient denies difficulty swallowing, denies acid reflux, denies ulcers, denies vomiting, denies jaundice/hepatitis, denies gallbladder problems, denies black or tarry stools, notes hemorrhoids, denies bleeding from rectum, denies diverticulitis, notes constipation, denies diarrhea, denies loss of stool control, and denies hernias. Kidney/Bladder: The patient denies kidney stones, denies urine infections, and notes bloody urine. Skin: The patient denies a history of skin cancer, denies bleeding/changing moles, and denies a history of skin rash. Neurologic: The patient denies a history of epilepsy/convulsions, denies headaches, denies head/spinal injuries, and denies stroke/TIA. Psychiatric: The patient denies psychiatric medications, denies depression, and denies voices, denies substance abuse. Endocrine: The patient denies thyroid disorders, notes diabetes, and denies hormonal problems. Hematologic: The patient denies a history of bruising, denies bleeding, and denies anemia, notes blood clots. Infections: The patient denies a history of measles and mumps, denies rheumatic fever, and denies sexually transmitted diseases. Musculoskeletal: The patient denies back pain/injury, notes back problems, denies sciatica, denies knee/foot trouble, denies arthritis, or denies gout. When was patient's last Mammogram screening? N/A Last Colonoscopy: Never MARY BETH Dyer Richard T, MD 10/31/2024 8:16 AM Signed HISTORY AND PHYSICAL Charline Farhana Laura 1955 REFERRING PHYSICIAN: Viktor Ferrera MD CHIEF COMPLAINT: skin lesion HPI: The patient is a 69 year old male. The patient with a skin lesion on his right neck which has been present for some time and growing he also notes a sebaceous cyst of his mid back. This back cyst itches. He will occasionally squeeze it or push against the edge of his doorjamb until it drains. He wishes to have both sites removed. The patient was referred by Dr. Ferrera for removal of skin lesion and sebaceous cyst SIGNIFICANT MEDICAL PROBLEMS: PAST MEDICAL HISTORY Diagnosis Date BPH associated with nocturia Cervical radiculopathy Controlled type 2 diabetes mellitus without complication, without long-term current use of insulin ([facility]) 06/19/2014 06/19/14 HbA1c 8.1 DVT of lower limb, acute (HCC) 07/13/2011 Elevated prostate specific antigen (PSA) 12/10/2023 Essential hypertension Hyperlipidemia LDL goal < 100 05/16/2013 Lumbar degenerative disc disease 07/09/2012 Memory changes Pappas's neuroma 05/16/2013 OAB (overactive bladder) 03/24/2024 Radiculopathy of lumbar region Sciatica Sebaceous cyst 10/16/2024 Skin lesion 10/16/2024 Superficial spreading malignant melanoma of skin (HCC) 12/03/2014 Vitamin D deficiency OPERATIONS: PAST SURGICAL HISTORY Procedure Laterality Date EXC SKIN MALIG >4CM REMAINDR BODY 04/16/2017 Squamous cell carcinoma completely excised clean margins MELANOMA OF SKIN EXCISION SYN RPT Left 2015 back MELANOMA OF SKIN EXCISION SYN RPT 04/16/2017 right posterior ear lesion [facility] TONSILLECTOMY PRIMARY/SECONDARY Tonsillectomy CURRENT MEDICATIONS: Current Outpatient Medications Medication Sig Dispense Refill atorvastatin (LIPITOR) 20 mg tablet Take 1 tablet by mouth once daily. 90 tablet 3 cholecalciferol, Vitamin D3, (VITAMIN D3) 1,250 mcg (50,000 unit) cap capsule Take 1 capsule by mouth one time a week. take with food 12 capsule 3 Valsartan-hydroCHLOROthiaz silverio (DIOVAN HCT) 80-12.5 mg per tablet Take 1 tablet by mouth once daily. 90 tablet 3 gabapentin (NEURONT (more content not included)... Normal [facility] CNOVon 10-16-2024 CNOV Office Visit (FAMPWS ) -- CHARLINE SANCHEZ ([id number]) 1955 M Date Time Provider Department 10/16/24 9:00 AM [facility] During your visit today, we recorded the following information about you: Pulse Respiration Blood pressure Weight 68/minute 18/minute 126/80 92 kg Viktor Ferrera MD 10/16/2024 9:38 AM Signed Chief Complaint Patient presents with: F/U 6 Month HPI Charline Sanchez is a 69 year old male who presents here today for 6 month follow up. Here today for her routine follow up. Doing pelvic floor therapy for incontinence; this is helping. Has occ constipation, will use Miralax prn. Follows with Urology for BPH, taking Flomax 0.4 mg 2 pills daily and Sanctura 20 mg daily. Lipid: Does try to watch diet and exercise as much as he can. Tries to stay busy and exercise the best he can. Does have radicular back issues. Taking Lipitor 20 mg daily. Vit D - Deficient, taking Vitamin D3 50,000 international unit(s) once weekly. DM: Is on Metformin 500 mg 1 pill BID. Denies checking BS at home. No hypoglycemic episodes unless he goes too long without eating. Notes tingling in his legs/feet, but possibly related to his back issues. HTN: Denies checking BP at home. No chest pains, dizziness, or SOB. Taking Diovan 80-12.5 mg daily and Norvasc 10 mg daily. Follows with Psychologist Jesse Morales and Neuro Dr. Pace for cognitive impairment. Is taking Gabapentin 300 mg 1 pill BID. Was started on Aricept 5 mg once daily. Hx of DDD in his lumbar area and radiculopathy in lumbar. Skin: lesion right side neck for 1-2 years; tiffanie cyst right mid back that gets itchy and drains occ. HM - Declines Flu and Covid vaccine. Denies having Adv Dir/Living Will. Declines Hep C screening. Anxiety/Depression screening completed, negative. Past medical history, appointments, medications, allergies reviewed. Previous Medical History PAST MEDICAL HISTORY Diagnosis Date BPH associated with nocturia Controlled type 2 diabetes mellitus without complication, without long-term current use of insulin (HCC) 06/19/2014 06/19/14 HbA1c 8.1 DVT of lower limb, acute ([facility]) 07/13/2011 Elevated prostate specific antigen (PSA) 12/10/2023 Hyperlipidemia LDL goal < 100 05/16/2013 Lumbar degenerative disc disease 07/09/2012 Pappas's neuroma 05/16/2013 OAB (overactive bladder) 03/24/2024 Sciatica Superficial spreading malignant melanoma of skin (HCC) 12/03/2014 Previous Surgical History PAST SURGICAL HISTORY Procedure Laterality Date EXC SKIN MALIG >4CM REMAINDR BODY 04/16/2017 Squamous cell carcinoma completely excised clean margins MELANOMA OF SKIN EXCISION SYN RPT Left 2014 back MELANOMA OF SKIN EXCISION SYN RPT 04/16/2017 right posterior ear lesion [facility] TONSILLECTOMY PRIMARY/SECONDARY Tonsillectomy Family History FAMILY HISTORY Problem Relation Age of Onset Heart Father valve Arthritis Mother knees,hips,lumbar spine Diabetes Mother other (electrical injury) Brother other (unknown) Brother Patient Allergies ALLERGIES Allergen Reactions Kidney Beans GI Upset Lisinopril Cough Tyler Seed Other: See Comments Adverse taste in mouth Current Medications Current Outpatient Medications on File Prior to Visit Medication Sig metFORMIN (GLUCOPHAGE) 500 mg tablet Take 1 tablet by mouth two times a day with meals. cyclobenzaprine (FLEXERIL) 5 mg tablet Take 1 tablet by mouth three times a day. trospium (SANCTURA) 20 mg tablet Take 1 tablet by mouth once daily. tamsulosin (FLOMAX) 0.4 mg Take 2 capsules by mouth daily at bedtime. atorvastatin (LIPITOR) 20 mg tablet Take 1 tablet by mouth once daily. amLODIPine (NORVASC) 10 mg tablet Take 1 tablet by mouth once daily. cholecalciferol, Vitamin D3, (VITAMIN D3) 1,250 mcg (50,000 unit) cap capsule Take 1 capsule by mouth one time a week. take with food Valsartan-hydroCHLOROthiaz silverio (DIOVAN HCT) 80-12.5 mg per tablet Take 1 tablet by mouth once daily. gabapentin (NEURONTIN) 300 mg capsule By mouth: 300mg qam, 600mg qHS (Patient taking differently: Patient takes 300 MG by mouth twice daily) albuterol HFA (VENTOLIN HFA) 90 mcg/actuation inhaler Inhale 2 Puffs as instructed every 4 hours as needed for wheezing/shortness of breath. (Patient not taking: Reported on 05/21/2024) No current facility-administered medications on file prior to visit. Social History Social History Tobacco Use Smoking status: Never Smokeless tobacco: Never Vaping Use Vaping status: Never Used Substance Use Topics Alcohol use: Not Currently Comment: occassionally Drug use: Never EXAM: BP 126/80 (BP Site: Right Arm, BP Position: Sitting, BP Cuff Size: Regular Adult) Pulse 68 Resp 18 Wt 92 kg (202 lb 13.2 oz) BMI 30.84 kg/m? General Appearance: Well appearing, alert, in no acute distress, well-hydrated, well nourished.. S (more content not included)... Normal [facility] 25(OH)D3 [facility] 25-hydroxyvitamin D3 [Mass/Vol] 63.0 ng/mL Normal 31.0-80.0 [facility] Comment on above: Order Comment: Speci men Type: BLOOD SPECIMEN Ordering Facility: [facility] Address: [facility] [place] [address] Result Comment: [place] sification of 25 [place] Vitamin D status: Deficiency/Insufficiency: < or = 30 ng/ml. Sufficiency/Optimal Levels: 31-80 ng/mL Toxicity: > 100 ng/mL. Test performed by chemiluminescent immunoassay. Performed By: #### 1 989-3 #### [facility] CLIA [id number] [address] [place] [address] [place] ALBUMIN/CREATININE RATIO, UR INEon 10-13-2024 Albumin DL <= 20 mg/L (U) [Mass/Vol] mg/dL Normal [facility] Comment on above: Order Comment: Speci men Type: URINE SPECIMENOrdering Facility: [facility] Address: [address] [place] [address] Performed By: #### U ACR ####[facility] [id number] [place] [address] [place] Albumin/Creatinine (U) [Mass ratio] <12 Normal <30 [facility] Comment on above: Order Comment: Speci men Type: URINE SPECIMENOrdering Facility: [facility] Address: [address] [place] [address] Result Comment: Adul t Male and Female Nephrotic Criteria: <30 mg/g is considered normal to mildly increased 30-300 mg/g is considered moderately increased >300 mg/g is considered severely increased KDIGO. (2013). KDIGO 2012 Clinical Practice Guideline for the Evaluation and Management of Chronic Kidney Disease. Official Journal of the International Society of Nephrology, 3(1), 1-150. Performed By: #### U ACR ####[facility] [id number] [place] [address] [place] Creatinine (U) [Mass/Vol] 102.8 mg/dL Normal 20.0-300.0 [facility] Comment on above: Order Comment: Speci men Type: URINE SPECIMENOrdering Facility: [facility] Address: [address] [place] [address] Performed By: #### U ACR ####[facility] [id number] [place] [id number] [place] Comprehensive metabolic 2000 panelon 10-13-2024 Albumin [Mass/Vol] 4.0 g/dL Normal 3.9-4.9 [facility] Comment on above: Order Comment: Speci men Type: BLOOD SPECIMEN Ordering Facility: [facility] Address: [address] [place] [id number] Performed By: #### 2 4323-8, 58871-0 #### [facility] CLIA [id number] [address] [place], [place] [address] [place] ALP [Catalytic activity/Vol] 91 U/L Normal 38-113 [facility] Comment on above: Order Comment: Speci men Type: BLOOD SPECIMEN Ordering Facility: [facility] Address: [address] [place], [place] [id number] Performed By: #### 2 4323-8, 00469-8 #### [facility] CLIA [id number] [address] [place] [address] [place] ALT [Catalytic activity/Vol] 15 U/L Normal 10-54 [facility] Comment on above: Order Comment: Speci men Type: BLOOD SPECIMEN Ordering Facility: [facility] Address: [address] [place] [address] Performed By: #### 2 4323-8, 17480-2 #### [facility] CLIA [id number] [address] [place] [address] [place] Anion gap [Moles/Vol] 9 mmol/L Normal 8-15 [facility] Comment on above: Order Comment: Speci men Type: BLOOD SPECIMEN Ordering Facility: [facility] Address: [address] [place], [place] [id number] Performed By: #### 2 4323-8, 32637-7 #### [facility] CLIA [id number] [address] [place], [place] [address] [place] AST [Catalytic activity/Vol] 19 U/L Normal 14-40 [facility] Comment on above: Order Comment: Speci men Type: BLOOD SPECIMEN Ordering Facility: [facility] Address: [address] [place], [place] [address] Performed By: #### 2 4323-8, 34869-5 #### [facility] CLIA [id number] [address] [place], [place] [id number] [place] Bilirubin [Mass/Vol] 0.9 mg/dL Normal 0.2-1.3 [facility] Comment on above: Order Comment: Speci men Type: BLOOD SPECIMEN Ordering Facility: [facility] Address: [address] [place] [address] Performed By: #### 2 4323-8, 16086-7 #### [facility] CLIA [id number] [address] [place] [address] [place] Calcium [Mass/Vol] 9.2 mg/dL Normal 8.5-10.2 [facility] Comment on above: Order Comment: Speci men Type: BLOOD SPECIMEN Ordering Facility: [facility] Address: [address] [place] [address] Performed By: #### 2 4323-8, 38279-8 #### [facility] CLIA [id number] [address] [place] [address] [place] Chloride [Moles/Vol] 100 mmol/L Normal 98-107 [facility] Comment on above: Order Comment: Speci men Type: BLOOD SPECIMEN Ordering Facility: [facility] Address: [address] [place] [address] Performed By: #### 2 4323-8, 64432-4 #### [facility] CLIA [id number] [address] [place] [address] [place] CO2 [Moles/Vol] 30 mmol/L Normal 22-30 [facility] Comment on above: Order Comment: Speci men Type: BLOOD SPECIMEN Ordering Facility: [facility] Address: [address] [place], [place] [address] Performed By: #### 2 4323-8, 91618-8 #### [facility] CLIA [id number] [address] [place], [place] [address] [place] Creatinine [Mass/Vol] 0.95 mg/dL Normal 0.73-1.22 [facility] Comment on above: Order Comment: Shawnee mata Type: BLOOD SPECIMEN Ordering Facility: [facility] Address: [address] [place] [address] Performed By: #### 2 4323-8, 71763-0 #### [facility] CLIA [id number] [address] [place] [address] [place] Creatinine and Glomerular filtration rate.predicted panel (S/P/Bld) 86 mL/min/1.73m??? Normal >=60 [facility] Comment on above: Order Comment: Shawnee mata Type: BLOOD SPECIMEN Ordering Facility: [facility] Address: [address] [place] [address] Result Comment: Marsha mated Glomerular Filtration Rate (eGFR) is calculated using the 2020 CKD-EPI creatinine equation. This equation utilizes serum creatinine, sex, and age as parameters. The creatinine assay has traceable calibration to isotope dilution-mass spectrometry. Refer to KDIGO guidelines for clinical interpretation. In patients with unstable renal function, e.g. those with acute kidney injury, the eGFR may not accurately reflect actual GFR. Performed By: #### 2 4323-8, 96582-8 #### [facility] CLIA [id number] [address] [place] [address] [place] Glucose [Mass/Vol] 117 mg/dL High 74-99 [facility] Comment on above: Order Comment: Shawnee mata Type: BLOOD SPECIMEN Ordering Facility: [facility] Address: [address] [place] [address] Result Comment: The [place] Diabetes Association (ADA) provides guidance for cutoff values for fasting glucose and random glucose. The ADA defines fasting as no caloric intake for at least 8 hours. Fasting plasma glucose results between 100 to 125 mg/dL indicate increased risk for diabetes (prediabetes). Fasting plasma glucose results greater than or equal to 126 mg/dL meet the criteria for diagnosis of diabetes. In the absence of unequivocal hyperglycemia, results should be confirmed by repeat testing. In a patient with classic symptoms of hyperglycemia or hyperglycemic crisis, random plasma glucose results greater than or equal to 200 mg/dL meet the criteria for diagnosis of diabetes. Reference: Standards of Medical Care in Diabetes 2016, [place] Diabetes Association. Diabetes Care. 2016.39(Suppl 1). Performed By: #### 2 4323-8, 60264-0 #### [facility] CLIA [id number] [address] [place] [address] [place] Potassium [Moles/Vol] 3.7 mmol/L Normal 3.7-5.1 [facility] Comment on above: Order Comment: Speci men Type: BLOOD SPECIMEN Ordering Facility: [facility] Address: [address] [place] [address] Performed By: #### 2 4323-8, 64197-8 #### [facility] CLIA [id number] [address] [place] [address] [place] Protein [Mass/Vol] 7.0 g/dL Normal 6.3-8.0 [facility] Comment on above: Order Comment: Speci men Type: BLOOD SPECIMEN Ordering Facility: [facility] Address: [address] [place] [id number] Performed By: #### 2 4323-8, 87035-6 #### [facility] CLIA [id number] [address] [place] [address] [place] Sodium [Moles/Vol] 139 mmol/L Normal 136-144 [facility] Comment on above: Order Comment: Speci men Type: BLOOD SPECIMEN Ordering Facility: [facility] Address: [address] [place] [id number] Performed By: #### 2 4323-8, 15388-1 #### [facility] CLIA [id number] [address] [place], [place] [address] [place] Urea nitrogen [Mass/Vol] 24 mg/dL Normal 9-24 [facility] Comment on above: Order Comment: Speci men Type: BLOOD SPECIMEN Ordering Facility: [facility] Address: [address] [place] [id number] Performed By: #### 2 4323-8, 62879-9 #### [facility] CLIA [id number] [address] [place] [address] [place] HbA1c (Bld)on 10-13-2024 Average glucose Estimated from glycated hemoglobin (Bld) [Mass/Vol] 146 mg/dL Normal [facility] Comment on above: Order Comment: Shawnee mata Type: BLOOD SPECIMEN Ordering Facility: [facility] Address: [address] [place] [address] Result Comment: eAG: (Estimated average glucose) is a calculated value from HgbA1c and is service support representative of the average blood glucose level in the last 2-3 month period. Performed By: #### 2 4323-8, 39801-0 #### [facility] CLIA [id number] [address] [place] [address] [place] HbA1c (Bld) [Mass fraction] 6.7 % High 4.3-5.6 [facility] Comment on above: Order Comment: Shawnee mata Type: BLOOD SPECIMEN Ordering Facility: [facility] Address: [address] [place] [address] Result Comment: [place] Diabetes Association guidelines indicate that patients with HgbA1c in the range 5.7-6.4% are at increased risk for development of diabetes, and intervention by lifestyle modification may be beneficial. HgbA1c greater or equal to 6.5% is considered diagnostic of diabetes. Performed By: #### 2 4323-8, 19260-4 #### [facility] CLIA [id number] [address] [place] [address] [place] Lipid 1996 panelon 5 Cholesterol [Mass/Vol] 139 mg/dL Normal <200 [facility] Comment on above: Order Comment: Shawnee mata Type: BLOOD SPECIMEN Ordering Facility: [facility] Address: [address] [place] [address] Result Comment: <200 mg/dL, Desirable 200-239 mg/dL, Borderline high >239 mg/dL, High Performed By: #### 2 4323-8, 43141-8 #### [facility] CLIA [id number] [address] OF [facility] Cholesterol in HDL [Mass/Vol] 38 mg/dL Low >39 [facility] Comment on above: Order Comment: Shawnee adolfo Type: BLOOD SPECIMEN Ordering Facility: [facility] Address: [address] [place] [address] Result Comment: 40-5 9 mg/dL, Acceptable >59 mg/dL, High: Negative risk factor for coronary heart disease <40 mg/dL, Low: Positive risk factor for coronary heart disease Performed By: #### 2 4323-8, 10149-0 #### [facility] CLIA [id number] [address] [place] [address] Cholesterol in LDL [Mass/Vol] 87 mg/dL Normal <100 [facility] Comment on above: Order Comment: Shawnee mata Type: BLOOD SPECIMEN Ordering Facility: [facility] Address: [address] [place] [address] Result Comment: <100 mg/dL, Optimal 100-129 mg/dL, Near optimal/above optimal 130-159 mg/dL, Borderline high 160-189 mg/dL, High >189 mg/dL, Very high Secondary prevention optimal LDL Cholesterol levels are recommended to be < 70 mg/dL Performed By: #### 2 4323-8, 31654-2 #### [facility] CLIA [id number] [address] [place] [address] OF [facility] Cholesterol in LDL/Cholesterol in HDL [Mass ratio] 2.29 {ratio} Normal <2.54 [facility] Comment on above: Order Comment: Atifjelena mata Type: BLOOD SPECIMEN Ordering Facility: [facility] Address: [address] [place] [address] Result Comment: Kenneth garcia: 1. National Cholesterol Education Program ATP III Guideline At-A-Glance Quick Desk Reference: National Heart, Lung, and Blood [place]. National Institutes of Health. 2001: NIH Publication No. 01-3305. 2. An International Atherosclerosis Society position paper: global recommendations for the management of dyslipidemia: executive summary, Atherosclerosis. 2014: 232(2):410-413. Performed By: #### 2 4323-8, 22978-4 #### [facility] CLIA [id number] [address] [place], [place] [address] [place] Cholesterol in VLDL [Mass/Vol] 14 mg/dL Normal <30 [facility] Comment on above: Order Comment: Shawnee men Type: BLOOD SPECIMEN Ordering Facility: [facility] Address: [address] [place] [address] Performed By: #### 2 4323-8, 44921-2 #### [facility] CLIA [id number] [address] [place] [address] [place] Cholesterol non HDL [Mass/Vol] 101 mg/dL Normal <130 [facility] Comment on above: Order Comment: Shawnee mata Type: BLOOD SPECIMEN Ordering Facility: [facility] Address: [address] [place] [address] Result Comment: <130 mg/dL, Optimal 130-159 mg/dL, Near optimal/above optimal 160-189 mg/dL, Borderline high 190-219 mg/dL, High >219 mg/dL, Very high Secondary prevention optimal non HDL Cholesterol levels are recommended to be <100 mg/dL Performed By: #### 2 4323-8, 29379-8 #### [facility] CLIA [id number] [address] [place] [address] [place] Cholesterol.total/Cho lesterol in HDL [Mass ratio] 3.66 {ratio} Normal <5.10 [facility] Comment on above: Order Comment: Shawnee mata Type: BLOOD SPECIMEN Ordering Facility: [facility] Address: [address] [place] [address] Performed By: #### 2 4323-8, 86552-7 #### [facility] CLIA [id number] [address] [place], [place] [address] [place] FASTING TIME 12 hrs Normal [facility] Comment on above: Order Comment: Shawnee mata Type: BLOOD SPECIMEN Ordering Facility: [facility] Address: [address] [place] [address] Performed By: #### 2 4323-8, 39132-3 #### [facility] CLIA [id number] [address] [place] [address] [place] Triglyceride [Mass/Vol] 68 mg/dL Normal <150 [facility] Comment on above: Order Comment: Speci men Type: BLOOD SPECIMEN Ordering Facility: [facility] Address: [address] [place] [address] Result Comment: <150 mg/dL, Normal 150-199 mg/dL, Borderline high 200-499 mg/dL, High >499 mg/dL, Very high Performed By: #### 2 4323-8, 27498-3 #### [facility] CLIA [id number] [address] [place] [address] [place] CNOVon 10-08-2024 CNOV Office Visit ([facility] ) -- CHARLINE SANCHEZ ([id number]) 1955 M Date Time Provider Department 10/08/24 3:30 PM MALI MODI During your visit today, we recorded the following information about you: Pulse Blood pressure Weight 67/minute 124/74 91.9 kg Mali Modi PA-C 10/08/2024 5:10 PM Signed [facility] Name: Charline Sanchez Age: [age] year old Gender: male Primary Care Provider: Viktor Ferrera MD 10/08/2024 - General Neurology, Mali Modi PA-C ASSESSMENT ASSESSMENT/PLAN: 1. MCI (mild cognitive impairment) - ICD9: 331.83, ICD10: G31.84 (primary diagnosis) 2. Memory loss - ICD9: 780.93, ICD10: R41.3 Patient with some mild worsening of his short-term memory subjectively since last appointment. Previous MRI showing significant hippocampal atrophy and neuropsychological testing consistent with mild cognitive impairment. Deferred medications at previous appointment as well as brain health evaluation. Unfortunately due to time unable to perform a repeat MoCA today we did discuss medications and patient would like to try them. Discussed Aricept and will start at 5 mg, no history of heart block or other arrhythmia. Is currently on amlodipine with heart rate at 67 today. Discussed that Aricept can lower the heart rate so if he has any fatigue or lightheadedness to stop the medication let me know. Patient has a follow-up with primary care next week and will have repeat vitals at that time. Encouraged other conservative therapy as well including increasing physical and cognitive activity. No new concerns that would warrant additional workup at this time. Will have patient follow-up in 3 to 4 months for repeat MoCA and evaluation. Patient agreeable to treatment plan of care at this time, questions were answered. Mali Modi PA-C Alzheimer's Society: Join to learn about many resources and supports for you, as the caregiver Community Resources: E.g. LIFE - A Dementia Friendly [facility] [place] on the [place] [facility]. MARKET SUPERINTENDENT/OT/PT: Speech therapy, Occupational therapy, Physical Therapy Driving: Do you have safety concerns? Power of Fabric Sourcer/ planning of the patient's will Project Lifesaver: Local police will keep records of your loved one if they tend to get lost, and will bring them home. Lifeline: emergency response button/necklace/bracelet Caregiver Health: Important to ensure you are taking care of your mental and physical health so you can care for your loved one SW consult: Do you want a social work referral to understand what resources are available to you? This is a 69 year old male followed for memory loss, MCI. Current medication treatment: none Indication for repeat cognitive testing: No Encounter Diagnosis ICD-10-CM 1. MCI (mild cognitive impairment) G31.84 2. Memory loss R41.3 Return in about 4 months (around 02/07/2025). Chart, labs,and relevant images reviewed. Chief Complaint:Patient presents with: Established Patient: MCI, memory loss- c/o symtpoms Chart Review: Last Filed Values Date of Most Recent Assessment and Plan 04/09/24 Specialty General Neurology Assessment ASSESSMENT/PLAN: 1. MCI (mild cognitive impairment) - ICD9: 331.83, ICD10: G31.84 (primary diagnosis) 2. Memory loss - ICD9: 780.93, ICD10: R41.3 Patient with progressive memory loss over the last few years, normal laboratory evaluation including B12 and folate. MRI of the brain with volumetric analysis was ordered and did show hippocampal volumes in the 18th percentile otherwise no significant atrophy or abnormalities intracranially. Neuropsychological testing was ordered as well and showed signs of mild cognitive impairment. Discussed these results at length with patient and family, discussed that there could be an neurodegenerative process like Alzheimer's disease or other dementia due to hippocampal atrophy. However, discussed that there is further testing that can be done for with a referral to brain health to get closer to her diagnosis. At this time, patient deferring this but would like to think about it at home. Does have history of B12 deficiency, B12 in September was at 435 and I discussed that a supplement could be beneficial if he is no longer supplementing at this time but did discuss he does not have a B12 deficiency based off this result. At this time, patient would like to see how he does with conservative therapy including increasing physical and cognitive activity and follow-up in 6 months to see how he does. Encouraged him to reach out with any new concerns or if he would like a referral to brain [facility] at any time. Patient and family agree and understand. Mali Modi PA-C HPI: Last seen for memory loss on 04/09/24, hippocampus in the 18th percentile. Neuropsych showed MCI. Deferred referral to brain health. No meds. (more content not included)... Normal [facility] CNTHERAPYon 10-07-2024 CNTHERAPY OT/PT/Speech Visit ( AKPTB) -- CHARLINE SANCHEZ ([id number]) 1955 M Date Time Provider Department 10/07/24 10:30 AM TIARRA LEON Date Time Provider Department Center 10/07/2024 10:30 AM [id number] LEON [facility] Reason for Visit: Physical Therapy [503] Primary Visit Diagnosis:Urinary incontinence, unspecified type [R32] Other Visit Diagnoses:Muscular incoordination [R27.8] Nocturia [R35.1] Allergies As of Date: 10/07/2024 Noted Allergy Reaction KIDNEY BEANS 05/23/2011 8 - GI Upset LISINOPRIL 11/30/2011 3 - Cough SUNFLOWER SEED 05/23/2011 14 - Other: See Comments Comments: Adverse taste in mouth Date Reviewed: 05/22/2024 Reviewed by: Carolann Moore LPN - Fully Assessed Prescriptions as of 10/07/2024 - metFORMIN (GLUCOPHAGE) 500 mg tablet Take 1 tablet by mouth two times a day with meals. - cyclobenzaprine (FLEXERIL) 5 mg tablet Take 1 tablet by mouth three times a day. - trospium (SANCTURA) 20 mg tablet Take 1 tablet by mouth once daily. - tamsulosin (FLOMAX) 0.4 mg Take 2 capsules by mouth daily at bedtime. - atorvastatin (LIPITOR) 20 mg tablet Take 1 tablet by mouth once daily. - amLODIPine (NORVASC) 10 mg tablet Take 1 tablet by mouth once daily. - cholecalciferol, Vitamin D3, (VITAMIN D3) 1,250 mcg (50,000 unit) cap capsule Take 1 capsule by mouth one time a week. take with food - Valsartan-hydroCHLOROthiaz silverio (DIOVAN HCT) 80-12.5 mg per tablet Take 1 tablet by mouth once daily. - gabapentin (NEURONTIN) 300 mg capsule By mouth: 300mg qam, 600mg qHS - albuterol HFA (VENTOLIN HFA) 90 mcg/actuation inhaler Inhale 2 Puffs as instructed every 4 hours as needed for wheezing/shortness of breath. Normal [facility] CNTHERAPYon 09-10-2024 CNTHERAPY OT/PT/Speech Visit ( AKPTB) -- LAURACHARLINE Byrd ([id number]) 1955 M Date Time Provider Department 09/10/24 9:00 AM TIARRA LEON Date Time Provider Department Center 09/10/2024 9:00 AM [id number] LEON [facility] Reason for Visit: PT Progress Note [1596] Primary Visit Diagnosis:Urinary incontinence, unspecified type [R32] Other Visit Diagnoses:Muscular incoordination [R27.8] Nocturia [R35.1] Allergies As of Date: 09/10/2024 Noted Allergy Reaction KIDNEY BEANS 05/23/2011 8 - GI Upset LISINOPRIL 11/30/2011 3 - Cough SUNFLOWER SEED 05/23/2011 14 - Other: See Comments Comments: Adverse taste in mouth Date Reviewed: 05/22/2024 Reviewed by: Carolann Moore LPN - Fully Assessed Prescriptions as of 09/10/2024 - metFORMIN (GLUCOPHAGE) 500 mg tablet Take 1 tablet by mouth two times a day with meals. - cyclobenzaprine (FLEXERIL) 5 mg tablet Take 1 tablet by mouth three times a day. - trospium (SANCTURA) 20 mg tablet Take 1 tablet by mouth once daily. - tamsulosin (FLOMAX) 0.4 mg Take 2 capsules by mouth daily at bedtime. - atorvastatin (LIPITOR) 20 mg tablet Take 1 tablet by mouth once daily. - amLODIPine (NORVASC) 10 mg tablet Take 1 tablet by mouth once daily. - cholecalciferol, Vitamin D3, (VITAMIN D3) 1,250 mcg (50,000 unit) cap capsule Take 1 capsule by mouth one time a week. take with food - Valsartan-hydroCHLOROthiaz silverio (DIOVAN HCT) 80-12.5 mg per tablet Take 1 tablet by mouth once daily. - gabapentin (NEURONTIN) 300 mg capsule By mouth: 300mg qam, 600mg qHS - albuterol HFA (VENTOLIN HFA) 90 mcg/actuation inhaler Inhale 2 Puffs as instructed every 4 hours as needed for wheezing/shortness of breath. Normal [facility] CNTHERAPYon 08-18-2024 CNTHERAPY OT/PT/Speech Visit ( AKPTB) -- CHARLINE SANCHEZ ([id number]) 1955 M Date Time Provider Department 08/18/24 9:45 AM TIARRA LEON Date Time Provider Department Center 08/18/2024 9:45 AM [id number] LEON [facility] Reason for Visit: Physical Therapy [503] Primary Visit Diagnosis:Urinary incontinence, unspecified type [R32] Other Visit Diagnoses:Muscular incoordination [R27.8] Nocturia [R35.1] Allergies As of Date: 08/18/2024 Noted Allergy Reaction KIDNEY BEANS 05/23/2011 8 - GI Upset LISINOPRIL 11/30/2011 3 - Cough SUNFLOWER SEED 05/23/2011 14 - Other: See Comments Comments: Adverse taste in mouth Date Reviewed: 05/22/2024 Reviewed by: Carolann Moore LPN - Fully Assessed Prescriptions as of 08/18/2024 - metFORMIN (GLUCOPHAGE) 500 mg tablet Take 1 tablet by mouth two times a day with meals. - cyclobenzaprine (FLEXERIL) 5 mg tablet Take 1 tablet by mouth three times a day. - trospium (SANCTURA) 20 mg tablet Take 1 tablet by mouth once daily. - tamsulosin (FLOMAX) 0.4 mg Take 2 capsules by mouth daily at bedtime. - atorvastatin (LIPITOR) 20 mg tablet Take 1 tablet by mouth once daily. - amLODIPine (NORVASC) 10 mg tablet Take 1 tablet by mouth once daily. - cholecalciferol, Vitamin D3, (VITAMIN D3) 1,250 mcg (50,000 unit) cap capsule Take 1 capsule by mouth one time a week. take with food - Valsartan-hydroCHLOROthiaz silverio (DIOVAN HCT) 80-12.5 mg per tablet Take 1 tablet by mouth once daily. - gabapentin (NEURONTIN) 300 mg capsule By mouth: 300mg qam, 600mg qHS - albuterol HFA (VENTOLIN HFA) 90 mcg/actuation inhaler Inhale 2 Puffs as instructed every 4 hours as needed for wheezing/shortness of breath. Websphere Developer: Addendum Therapy (PT/OT/Speech/Resp) ID: [id number] 08/18/2024 10:27 AM Author: TIARRA LEON Signed by TIARRA LEON PT on 08/18/2024 at 10:27 AM * * * This document replaces document [id number] * * * Document text: Program_ID:[id number] Access Code: [email or web address] URL: [email or web address]/ Date: 08-18-2024 Prepared By: Tiarra Leon Program Notes Exercises - Supine Diaphragmatic Breathing - 10 x daily - 7 x weekly - 1 sets - 5-10 reps - Seated Pelvic Floor Contraction - 3 x daily - 7 x weekly - 1 sets - 10 reps Patient Education - Get To Know Your Pelvic Floor- Male - cc Pelvic Floor - Bladder Christian - Irritants - cc Pelvic Floor - Knack Technique - Urinary Urge Control Techniques - cc Pelvic Floor - Urgency Triggers Normal [facility] THERAPY NTon 08-18-2024 THERAPY NT HNO ID: [id number] Author: TIARRA LEON PT Service: ? Author Type: Physical Therapist Type: Therapy (PT/OT/Speech/Resp) Filed: 08/18/2024 10:27 Note Text: Program_ID:[id number] Access Code: [email or web address] URL: [email or web address] Date: 08-18-2024 Prepared By: Tiarra Leon Program Notes Exercises - Supine Diaphragmatic Breathing - 10 x daily - 7 x weekly - 1 sets - 5-10 reps - Seated Pelvic Floor Contraction - 3 x daily - 7 x weekly - 1 sets - 10 reps Patient Education - Get To Know Your Pelvic Floor- Male - cc Pelvic Floor - Bladder Christian - Irritants - cc Pelvic Floor - Knack Technique - Urinary Urge Control Techniques - cc Pelvic Floor - Urgency Triggers Normal [facility] [id number] 08-05-2024 [id number] HNO ID: [id number] Author: TIARRA LEON PT Service: ? Author Type: Physical Therapist Type: [id number] Filed: 08/05/2024 15:38 Note Text: [facility] Physical Therapy Plan of Care Certification Patient Name: Charline Sanchez : 1955 [facility] #: [id number] Date: 08/05/2024 To: Viktor Ferrera MD From Therapist: Tiarra Leon PT RE: Patient Certification/ Recertification Your review, approval and electronic signature are required in order to comply with Payor: [employer] MEDICARE / Plan: [employer] MEDICARE PPO / Product Type: PPO / regulations. The identified Physical Therapy PLAN OF CARE for the patient is as follows: R27.8 Muscular incoordination (primary encounter diagnosis) R32 Urinary incontinence, unspecified type R35.1 Nocturia PLAN OF CARE: Assessment: Charline Sanchez presents with chief complaint of mixed urinary incontinence and nocturia that interferes with bowel function, bladder function . The patient presents with impairments in coordination, overall function, strength, and symptom management. PROMIS? (Patient-Reported Outcomes Measurement Information System) scores were reviewed and identified as a rehabilitation concern. Prognosis for therapy is Fair due to: memory deficits, Prognosis may be improved by current objective clinical presentation. Increased time for patient education to ensure understanding. Deficits likely due to a combination of dietary factors, pressure of bowels on bladder, and poor bladder habits, along with possible age-related muscular atrophy and weakness. The patient will benefit from skilled therapy services to meet the goals established for this plan of care as noted below. Goals for Episode of Care: established 08/05/24 Patient demonstrates independence and compliance with home exercise program. Patient to increase strength of pelvic floor to Power 3+/5, Endurance 10/10, Repetitions 10/10 , and Fast Reps 8/10 in order to improve bladder/bowel control. Patient to correctly isolate pelvic floor muscles without compensatory patterns of breath holding, adductor use, and abdominal use to improve bladder/bowel control. Patient to urinate 2-4 hours to demonstrate normalized bladder function. Patient reports nocturia <2 times to demonstrate normalized bladder function. Patient reports 80% less bladder and bowel urgency and leaks with urgency to avoid incontinent episodes. Patient reports 80% improvement in bladder leaks while lifting and transitional movements compared to evaluation in order to increase bladder function in activities of daily living. Patient reports increased water intake to 48 or more ounces/day to promote bladder and bowel health. Patient Goals: Have more control over urinary and GI system Time Frame for Goals and Treatment : 11/25/24 Planned Interventions, Frequency, and Duration: Current Frequency: 1x every other week Duration: 16 weeks Total Number of Visits Planned: 8 Planned Treatment Interventions: Therapeutic exercise (64473), Neuromuscular re-education (93339), Manual therapy (24084), Therapeutic activities (41224), Self-nursing home management (73226), Patient/Family/Caregiver Education, Body Mechanics Training PLAN FOR NEXT VISIT: Assess response to HEP, assign diaries, educate on urge control Patient demonstrates good understanding of plan of care and treatment. The above goals and plan of care were discussed and agreed upon by patient/family. For further details regarding this patient refer to the Physical Therapy electronically documented visit dated 08/05/2024. Provider Attestation I have reviewed the treatment plan for Charline Delcid Laura, [facility]# [id number] for the period of 08/05/24 -- 10/28/24, established on 08/05/2024. Signature certifies the need for therapy services. Normal [facility] CNTHERAPYon 08-05-2024 CNTHERAPY OT/PT/Speech Visit ( AKPTB) -- LAURACHARLINE Byrd ([id number]) 1955 M Date Time Provider Department 08/05/24 2:30 PM TIARRA LEON Date Time Provider Department Center 08/05/2024 2:30 PM [id number] LEON [facility] Reason for Visit: PT Eval [747] Primary Visit Diagnosis:Muscular incoordination [R27.8] Other Visit Diagnoses:Urinary incontinence, unspecified type [R32] Nocturia [R35.1] Allergies As of Date: 08/05/2024 Noted Allergy Reaction KIDNEY BEANS 05/23/2011 8 - GI Upset LISINOPRIL 11/30/2011 3 - Cough SUNFLOWER SEED 05/23/2011 14 - Other: See Comments Comments: Adverse taste in mouth Date Reviewed: 05/22/2024 Reviewed by: Carolann Moore LPN - Fully Assessed Prescriptions as of 08/05/2024 - metFORMIN (GLUCOPHAGE) 500 mg tablet Take 1 tablet by mouth two times a day with meals. - cyclobenzaprine (FLEXERIL) 5 mg tablet Take 1 tablet by mouth three times a day. - trospium (SANCTURA) 20 mg tablet Take 1 tablet by mouth once daily. - tamsulosin (FLOMAX) 0.4 mg Take 2 capsules by mouth daily at bedtime. - atorvastatin (LIPITOR) 20 mg tablet Take 1 tablet by mouth once daily. - amLODIPine (NORVASC) 10 mg tablet Take 1 tablet by mouth once daily. - cholecalciferol, Vitamin D3, (VITAMIN D3) 1,250 mcg (50,000 unit) cap capsule Take 1 capsule by mouth one time a week. take with food - Valsartan-hydroCHLOROthiaz silverio (DIOVAN HCT) 80-12.5 mg per tablet Take 1 tablet by mouth once daily. - gabapentin (NEURONTIN) 300 mg capsule By mouth: 300mg qam, 600mg qHS - albuterol HFA (VENTOLIN HFA) 90 mcg/actuation inhaler Inhale 2 Puffs as instructed every 4 hours as needed for wheezing/shortness of breath. Websphere Developer: Addendum Therapy (PT/OT/Speech/Resp) ID: [id number] 08/05/2024 3:26 PM Author: TIARRA LEON Signed by TIARRA LEON PT on 08/05/2024 at 3:26 PM * * * This document replaces document [id number] * * * Document text: Program_ID:[id number] Access Code: [email or web address] URL: [email or web address]://[email or web address]/ Date: 08-05-2024 Prepared By: Tiarra Leon Program Notes Exercises - Supine Diaphragmatic Breathing - 10 x daily - 7 x weekly - 1 sets - 5-10 reps - Seated Pelvic Floor Contraction - 3 x daily - 7 x weekly - 1 sets - 10 reps Patient Education - Get To Know Your Pelvic Floor- Male - cc Pelvic Floor - Bladder Christian - Irritants - cc Pelvic Floor - Knack Technique Normal [facility] THERAPY NTon 08-05-2024 THERAPY NT HNO ID: [id number] Author: TIARRA LEON, PT Service: ? Author Type: Physical Therapist Type: Therapy (PT/OT/Speech/Resp) Filed: 08/05/2024 15:26 Note Text: Program_ID:[id number] Access Code: [email or web address] URL: [email or web address]://[email or web address]/ Date: 08-05-2024 Prepared By: Tiarra Leon Program Notes Exercises - Supine Diaphragmatic Breathing - 10 x daily - 7 x weekly - 1 sets - 5-10 reps - Seated Pelvic Floor Contraction - 3 x daily - 7 x weekly - 1 sets - 10 reps Patient Education - Get To Know Your Pelvic Floor- Male - cc Pelvic Floor - Bladder Christian - Irritants - cc Pelvic Floor - Knack Technique Normal [facility] CNTHERAPYon 06-30-2024 CNTHERAPY OT/PT/Speech Visit ( PTWS) -- CHARLINE SANCHEZ ([id number]) 1955 M Date Time Provider Department 06/30/24 2:15 PM MARIO GLEZ PTWS Date Time Provider Department Center 06/30/2024 2:15 PM [id number], COLIN PTWS Alexandru Shafer Reason for Visit: PT Discharge [752] Primary Visit Diagnosis:Strain of neck muscle, initial encounter [S16.1XXA] Other Visit Diagnoses:Cervical radiculopathy [M54.12] Radiculopathy of lumbar region [M54.16] Allergies As of Date: 06/30/2024 Noted Allergy Reaction KIDNEY BEANS 05/23/2011 8 - GI Upset LISINOPRIL 11/30/2011 3 - Cough SUNFLOWER SEED 05/23/2011 14 - Other: See Comments Comments: Adverse taste in mouth Date Reviewed: 05/22/2024 Reviewed by: Carolann Moore LPN - Fully Assessed Prescriptions as of 06/30/2024 - metFORMIN (GLUCOPHAGE) 500 mg tablet Take 1 tablet by mouth two times a day with meals. - cyclobenzaprine (FLEXERIL) 5 mg tablet Take 1 tablet by mouth three times a day. - trospium (SANCTURA) 20 mg tablet Take 1 tablet by mouth once daily. - tamsulosin (FLOMAX) 0.4 mg Take 2 capsules by mouth daily at bedtime. - atorvastatin (LIPITOR) 20 mg tablet Take 1 tablet by mouth once daily. - amLODIPine (NORVASC) 10 mg tablet Take 1 tablet by mouth once daily. - cholecalciferol, Vitamin D3, (VITAMIN D3) 1,250 mcg (50,000 unit) cap capsule Take 1 capsule by mouth one time a week. take with food - Valsartan-hydroCHLOROthiaz silverio (DIOVAN HCT) 80-12.5 mg per tablet Take 1 tablet by mouth once daily. - gabapentin (NEURONTIN) 300 mg capsule By mouth: 300mg qam, 600mg qHS - albuterol HFA (VENTOLIN HFA) 90 mcg/actuation inhaler Inhale 2 Puffs as instructed every 4 hours as needed for wheezing/shortness of breath. Websphere Developer: Addendum Therapy (PT/OT/Speech/Resp) ID: [id number] 06/30/2024 2:41 PM Author: MARIO GLEZ Signed by MARIO GLEZ PT on 06/30/2024 at 2:42 PM * * * This document replaces document [id number] * * * Document text: Program_ID:[id number] Access Code: [email or web address] URL: [email or web address]/ Date: 06-30-2024 Prepared By: Mario Glez Program Notes Exercises - Hooklying Single Knee to Chest Stretch - 2 x daily - 7 x weekly - 3 sets - reps - Supine Double Knee to Chest - 3 x daily - 7 x weekly - 3 sets - reps - Supine Lower Trunk Rotation - 2 x daily - 7 x weekly - 2 sets - 10 reps - Supine Transversus Abdominis Bracing - Hands on Stomach - 2 x daily - 7 x weekly - 2-3 sets - 10 reps - Supine Posterior Pelvic Tilt - 2 x daily - 7 x weekly - 2 sets - 10 reps - Supine Bridge - 2 x daily - 7 x weekly - 2 sets - 8-12 reps - Standing Anti-Rotation Press with Anchored Resistance - 2 x daily - 7 x weekly - 2 sets - 10-12 reps - Stir the Pot - 2 x daily - 7 x weekly - 2 sets - 10-15 reps - Shoulder extension with resistance - Neutral - 2 x daily - 7 x weekly - 2 sets - 10-15 reps Normal [facility] THERAPY NTon 06-30-2024 THERAPY NT HNO ID: [id number] Author: MARIO GLEZ PT Service: ? Author Type: Physical Therapist Type: Therapy (PT/OT/Speech/Resp) Filed: 06/30/2024 14:42 Note Text: Program_ID:[id number] Access Code: [email or web address] URL: [email or web address] Date: 06-30-2024 Prepared By: Mario Glez Program Notes Exercises - Hooklying Single Knee to Chest Stretch - 2 x daily - 7 x weekly - 3 sets - reps - Supine Double Knee to Chest - 3 x daily - 7 x weekly - 3 sets - reps - Supine Lower Trunk Rotation - 2 x daily - 7 x weekly - 2 sets - 10 reps - Supine Transversus Abdominis Bracing - Hands on Stomach - 2 x daily - 7 x weekly - 2-3 sets - 10 reps - Supine Posterior Pelvic Tilt - 2 x daily - 7 x weekly - 2 sets - 10 reps - Supine Bridge - 2 x daily - 7 x weekly - 2 sets - 8-12 reps - Standing Anti-Rotation Press with Anchored Resistance - 2 x daily - 7 x weekly - 2 sets - 10-12 reps - Stir the Pot - 2 x daily - 7 x weekly - 2 sets - 10-15 reps - Shoulder extension with resistance - Neutral - 2 x daily - 7 x weekly - 2 sets - 10-15 reps Normal [facility] CNPNon 06-26-2024 CNPN Telephone (FAMPWS) -- CHARLINE SANCHEZ ([id number]) 1955 M Date Time Provider Department 06/26/24 VIKTOR FERRERA FAMPWS During your visit today, we recorded the following information about you: Viktor Ferrera MD 06/26/2024 2:21 PM Signed Please notify patient that his MRI showed degenerative changes in his low back, but nothing that looked like it needed immediate attention I would recommend continuing with the PT; if this does not help then we can refer to Spine or Pain for further recommendations. MD Parker Drake Kathryn, MA 06/26/2024 2:31 PM Signed Pt notified. Caryn Canales MA Allergies As of Date: 06/26/2024 Noted Allergy Reaction KIDNEY BEANS 05/23/2011 8 - GI Upset LISINOPRIL 11/30/2011 3 - Cough SUNFLOWER SEED 05/23/2011 14 - Other: See Comments Comments: Adverse taste in mouth Date Reviewed: 05/22/2024 Reviewed by: Carolann Moore LPN - Fully Assessed Reason for Visit: Results [95] Prescriptions as of 06/26/2024 - metFORMIN (GLUCOPHAGE) 500 mg tablet Take 1 tablet by mouth two times a day with meals. - cyclobenzaprine (FLEXERIL) 5 mg tablet Take 1 tablet by mouth three times a day. - trospium (SANCTURA) 20 mg tablet Take 1 tablet by mouth once daily. - tamsulosin (FLOMAX) 0.4 mg Take 2 capsules by mouth daily at bedtime. - atorvastatin (LIPITOR) 20 mg tablet Take 1 tablet by mouth once daily. - amLODIPine (NORVASC) 10 mg tablet Take 1 tablet by mouth once daily. - cholecalciferol, Vitamin D3, (VITAMIN D3) 1,250 mcg (50,000 unit) cap capsule Take 1 capsule by mouth one time a week. take with food - Valsartan-hydroCHLOROthiaz silverio (DIOVAN HCT) 80-12.5 mg per tablet Take 1 tablet by mouth once daily. - gabapentin (NEURONTIN) 300 mg capsule By mouth: 300mg qam, 600mg qHS - albuterol HFA (VENTOLIN HFA) 90 mcg/actuation inhaler Inhale 2 Puffs as instructed every 4 hours as needed for wheezing/shortness of breath. 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 04/10/2024 DM (diabetes mellitus), 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/28/2015 Bilateral lumbar radiculopathy [M54.16] 04/28/2015 09/21/2016 Neoplasm of uncertain behavior of skin [D48.5] 03/27/2017 Chronic pain of both shoulders [M25.511, G89.29*04/12/2021 Neural foraminal stenosis of cervical spine [M4*05/20/2021 BPH associated with nocturia [N40.1, 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.1] 03/20/2022 Radiculopathy of lumbar region [M54.16] 05/09/2024 Cervical radiculopathy [M54.12] 05/27/2024 Cervical strain [S16.1XXA] 05/27/2024 Encounter Status:Closed by CARYN CANALES on 06/26/24 Normal [facility] CNTHERAPYon 06-23-2024 CNTHERAPY OT/PT/Speech Visit ( PTWS) -- CHARLINE SANCHEZ ([id number]) 1955 M Date Time Provider Department 06/23/24 2:15 PM MARIO GLEZ PTWS Date Time Provider Department Center 06/23/2024 2:15 PM [id number], COLIN PTWS Alexandru Mill Reason for Visit: Physical Therapy [503] Primary Visit Diagnosis:Strain of neck muscle, initial encounter [S16.1XXA] Other Visit Diagnoses:Cervical radiculopathy [M54.12] Radiculopathy of lumbar region [M54.16] Allergies As of Date: 06/23/2024 Noted Allergy Reaction KIDNEY BEANS 05/23/2011 8 - GI Upset LISINOPRIL 11/30/2011 3 - Cough SUNFLOWER SEED 05/23/2011 14 - Other: See Comments Comments: Adverse taste in mouth Date Reviewed: 05/22/2024 Reviewed by: Carolann Moore LPN - Fully Assessed Prescriptions as of 07/07/2024 - metFORMIN (GLUCOPHAGE) 500 mg tablet Take 1 tablet by mouth two times a day with meals. - cyclobenzaprine (FLEXERIL) 5 mg tablet Take 1 tablet by mouth three times a day. - trospium (SANCTURA) 20 mg tablet Take 1 tablet by mouth once daily. - tamsulosin (FLOMAX) 0.4 mg Take 2 capsules by mouth daily at bedtime. - atorvastatin (LIPITOR) 20 mg tablet Take 1 tablet by mouth once daily. - amLODIPine (NORVASC) 10 mg tablet Take 1 tablet by mouth once daily. - cholecalciferol, Vitamin D3, (VITAMIN D3) 1,250 mcg (50,000 unit) cap capsule Take 1 capsule by mouth one time a week. take with food - Valsartan-hydroCHLOROthiaz silverio (DIOVAN HCT) 80-12.5 mg per tablet Take 1 tablet by mouth once daily. - gabapentin (NEURONTIN) 300 mg capsule By mouth: 300mg qam, 600mg qHS - albuterol HFA (VENTOLIN HFA) 90 mcg/actuation inhaler Inhale 2 Puffs as instructed every 4 hours as needed for wheezing/shortness of breath. [employer] Developer: Addendum Therapy (PT/OT/Speech/Resp) ID: [id number] 06/23/2024 2:52 PM Author: MARIO GLEZ Signed by MARIO GLEZ PT on 06/23/2024 at 2:52 PM * * * This document replaces document [id number] * * * Document text: Program_ID:[id number] Access Code: [email or web address] URL: https://[employer]/ Date: 06-23-2024 Prepared By: Mario Glez Program Notes Exercises - Hooklying Single Knee to Chest Stretch - 2 x daily - 7 x weekly - 3 sets - reps - Supine Double Knee to Chest - 3 x daily - 7 x weekly - 3 sets - reps - Supine Lower Trunk Rotation - 2 x daily - 7 x weekly - 2 sets - 10 reps - Supine Transversus Abdominis Bracing - Hands on Stomach - 2 x daily - 7 x weekly - 2-3 sets - 10 reps - Supine Posterior Pelvic Tilt - 2 x daily - 7 x weekly - 2 sets - 10 reps - Supine Bridge - 2 x daily - 7 x weekly - 2 sets - 8-12 reps - Standing Anti-Rotation Press with Anchored Resistance - 2 x daily - 7 x weekly - 2 sets - 10-12 reps Normal [facility] THERAPY NTon 06-23-2024 THERAPY NT HNO ID: [id number] Author: MARIO GLEZ, DRAGAN Service: ? Author Type: Physical Therapist Type: Therapy (PT/OT/Speech/Resp) Filed: 06/23/2024 14:52 Note Text: Program_ID:[id number] Access Code: [email or web address] URL: [email or web address]/ Date: 06-23-2024 Prepared By: Mario Glez Program Notes Exercises - Hooklying Single Knee to Chest Stretch - 2 x daily - 7 x weekly - 3 sets - reps - Supine Double Knee to Chest - 3 x daily - 7 x weekly - 3 sets - reps - Supine Lower Trunk Rotation - 2 x daily - 7 x weekly - 2 sets - 10 reps - Supine Transversus Abdominis Bracing - Hands on Stomach - 2 x daily - 7 x weekly - 2-3 sets - 10 reps - Supine Posterior Pelvic Tilt - 2 x daily - 7 x weekly - 2 sets - 10 reps - Supine Bridge - 2 x daily - 7 x weekly - 2 sets - 8-12 reps - Standing Anti-Rotation Press with Anchored Resistance - 2 x daily - 7 x weekly - 2 sets - 10-12 reps Normal [facility] CNTHERAPYon 06-18-2024 CNTHERAPY OT/PT/Speech Visit ( PTWS) -- CHARLINE SANCHEZ ([id number]) 1955 M Date Time Provider Department 06/18/24 7:45 AM MARIO GLEZ PTAMPARO Date Time Provider Department Center 06/18/2024 7:45 AM [id number], COLIN PTWS Alexandru Shafer Reason for Visit: Physical Therapy [503] Primary Visit Diagnosis:Radiculopathy of lumbar region [M54.16] Other Visit Diagnoses:Strain of neck muscle, initial encounter [S16.1XXA] Cervical radiculopathy [M54.12] Allergies As of Date: 06/18/2024 Noted Allergy Reaction KIDNEY BEANS 05/23/2011 8 - GI Upset LISINOPRIL 11/30/2011 3 - Cough SUNFLOWER SEED 05/23/2011 14 - Other: See Comments Comments: Adverse taste in mouth Date Reviewed: 05/22/2024 Reviewed by: Carolann Moore LPN - Fully Assessed Prescriptions as of 06/18/2024 - metFORMIN (GLUCOPHAGE) 500 mg tablet Take 1 tablet by mouth two times a day with meals. - cyclobenzaprine (FLEXERIL) 5 mg tablet Take 1 tablet by mouth three times a day. - trospium (SANCTURA) 20 mg tablet Take 1 tablet by mouth once daily. - tamsulosin (FLOMAX) 0.4 mg Take 2 capsules by mouth daily at bedtime. - atorvastatin (LIPITOR) 20 mg tablet Take 1 tablet by mouth once daily. - amLODIPine (NORVASC) 10 mg tablet Take 1 tablet by mouth once daily. - cholecalciferol, Vitamin D3, (VITAMIN D3) 1,250 mcg (50,000 unit) cap capsule Take 1 capsule by mouth one time a week. take with food - Valsartan-hydroCHLOROthiaz silverio (DIOVAN HCT) 80-12.5 mg per tablet Take 1 tablet by mouth once daily. - gabapentin (NEURONTIN) 300 mg capsule By mouth: 300mg qam, 600mg qHS - albuterol HFA (VENTOLIN HFA) 90 mcg/actuation inhaler Inhale 2 Puffs as instructed every 4 hours as needed for wheezing/shortness of breath. Normal [facility] MR Lumbar spine WO contrasto n 06-18-2024 IMPRESSION: Degenerative changes most pronounced at L3-4 and L4-5. Anatomic Lumbar Variant: None. L4-5 is considered the level of the iliac crest and assume there are 5 lumbar-type vertebrae. Hi Lift Operator: NANCY Transcribe Date/Time: Jun 18 2024 1:26P Dictated by : GIORGIO RAMIREZ MD This examination was interpreted and the report reviewed and electronically signed by: GIORGIO RAMIREZ MD on Jun 18 2024 1:30PM [facility] DIV[facility] * * *Final Report* * * DATE OF EXAM: Jun 18 2024 12:15PM [facility] 0303 - MRI LUMBAR SPINE WO IVCON / PROCEDURE REASON: Radiculopathy of lumbar region * * * * Physician Interpretation * * * * EXAMINATION: MRI LUMBAR SPINE WO IVCON CLINICAL HISTORY: Radiculopathy of lumbar region TECHNIQUE: Routine lumbosacral spine MR protocol without gadolinium. MQ: [id number] COMPARISON: None. RESULT: Counting reference: Lumbosacral junction. For the purposes of this report, L4-5 is considered the level of the iliac crest and assume there are 5 lumbar-type vertebrae. Anatomic variant: None. Localizer images: Degenerative changes in the hips. Prostatomegaly. Alignment: Grade 1 anterolisthesis at L4-5. Bone marrow signal/fracture: Degenerative endplate changes without associated marrow edema. No focal marrow lesion. No evidence of prior fracture. Conus: The visualized spinal cord is normal in morphology and signal intensity. The visualized cauda equina is unremarkable. Paraspinal soft tissues: Paraspinal muscular atrophy, the paraspinal soft tissues are otherwise unremarkable. Lower thoracic spine: Visualized lower thoracic canal and foramina are patent. L1-L2: Disc bulge and facet hypertrophy with diffuse mild spinal canal narrowing and moderate bilateral neural foramen narrowing L2-L3: Disc bulge, facet hypertrophy, ligament flavum thickening, and prominent epidural fat with diffuse moderate spinal canal narrowing and moderate bilateral neural foramen narrowing. L3-L4: Disc bulge, facet hypertrophy, and ligamentum flavum thickening with severe spinal canal narrowing and moderate left and severe right neural foramen narrowing. L4-L5: Disc bulge, facet hypertrophy, and ligament flavum thickening with severe spinal canal narrowing and moderate right and severe left neural foramen narrowing. L5-S1: Disc bulge, facet hypertrophy, and ligamentum flavum thickening with mild left and moderate right subarticular recess narrowing and moderate bilateral neural foramen narrowing. Sacrum and iliac wings: Degenerative changes in the sacroiliac joints. DIVISION OF RADIOLOGY Provider, [facility] - 06/18/2024 * * *Final Report* * * DATE OF EXAM: Jun 18 2024 12:15PM [facility] 0303 - MRI LUMBAR SPINE WO IVCON / PROCEDURE REASON: Radiculopathy of lumbar region * * * * Physician Interpretation * * * * EXAMINATION: MRI LUMBAR SPINE WO IVCON CLINICAL HISTORY: Radiculopathy of lumbar region TECHNIQUE: Routine lumbosacral spine MR protocol without gadolinium. MQ: [id number]_3 COMPARISON: None. RESULT: Counting reference: Lumbosacral junction. For the purposes of this report, L4-5 is considered the level of the iliac crest and assume there are 5 lumbar-type vertebrae. Anatomic variant: None. Localizer images: Degenerative changes in the hips. Prostatomegaly. Alignment: Grade 1 anterolisthesis at L4-5. Bone marrow signal/fracture: Degenerative endplate changes without associated marrow edema. No focal marrow lesion. No evidence of prior fracture. Conus: The visualized spinal cord is normal in morphology and signal intensity. The visualized cauda equina is unremarkable. Paraspinal soft tissues: Paraspinal muscular atrophy, the paraspinal soft tissues are otherwise unremarkable. Lower thoracic spine: Visualized lower thoracic canal and foramina are patent. L1-L2: Disc bulge and facet hypertrophy with diffuse mild spinal canal narrowing and moderate bilateral neural foramen narrowing L2-L3: Disc bulge, facet hypertrophy, ligament flavum thickening, and prominent epidural fat with diffuse moderate spinal canal narrowing and moderate bilateral neural foramen narrowing. L3-L4: Disc bulge, facet hypertrophy, and ligamentum flavum thickening with severe spinal canal narrowing and moderate left and severe right neural foramen narrowing. L4-L5: Disc bulge, facet hypertrophy, and ligament flavum thickening with severe spinal canal narrowing and moderate right and severe left neural foramen narrowing. L5-S1: Disc bulge, facet hypertrophy, and ligamentum flavum thickening with mild left and moderate right subarticular recess narrowing and moderate bilateral neural foramen narrowing. Sacrum and iliac wings: Degenerative changes in the sacroiliac joints. IMPRESSION IMPRESSION: Degenerative changes most pronounced at L3-4 and L4-5. Anatomic Lumbar Variant: None. L4-5 is considered the level of the iliac crest and assume there are 5 lumbar-type vertebrae. Hi Lift Operator: NANCY Transcribe Date/Time: Jun 18 2024 1:26P Dictated by : GIORGIO RAMIREZ MD This examination was interpreted and the report reviewed and electronically signed by: GIORGIO RAMIREZ MD on Jun 18 2024 1:30PM EST [facility] Radiology Study observation (narrative) [facility] MR Lumbar spine WO contrastO rdered By: [facility] Provider on 06-18-2024 [facility] MRI LUMBAR SPINE WO IVCONon 06-18-2024 MRI LUMBAR SPINE WO IVCON * * *Final Report* * * DATE OF EXAM: Jun 18 2024 12:15PM [facility] 0303 - MRI LUMBAR SPINE WO IVCON / PROCEDURE REASON: Radiculopathy of lumbar region * * * * Physician Interpretation * * * * EXAMINATION: MRI LUMBAR SPINE WO IVCON CLINICAL HISTORY: Radiculopathy of lumbar region TECHNIQUE: Routine lumbosacral spine MR protocol without gadolinium. MQ: [id number]_3 COMPARISON: None. RESULT: Counting reference: Lumbosacral junction. For the purposes of this report, L4-5 is considered the level of the iliac crest and assume there are 5 lumbar-type vertebrae. Anatomic variant: None. Localizer images: Degenerative changes in the hips. Prostatomegaly. Alignment: Grade 1 anterolisthesis at L4-5. Bone marrow signal/fracture: Degenerative endplate changes without associated marrow edema. No focal marrow lesion. No evidence of prior fracture. Conus: The visualized spinal cord is normal in morphology and signal intensity. The visualized cauda equina is unremarkable. Paraspinal soft tissues: Paraspinal muscular atrophy, the paraspinal soft tissues are otherwise unremarkable. Lower thoracic spine: Visualized lower thoracic canal and foramina are patent. L1-L2: Disc bulge and facet hypertrophy with diffuse mild spinal canal narrowing and moderate bilateral neural foramen narrowing L2-L3: Disc bulge, facet hypertrophy, ligament flavum thickening, and prominent epidural fat with diffuse moderate spinal canal narrowing and moderate bilateral neural foramen narrowing. L3-L4: Disc bulge, facet hypertrophy, and ligamentum flavum thickening with severe spinal canal narrowing and moderate left and severe right neural foramen narrowing. L4-L5: Disc bulge, facet hypertrophy, and ligament flavum thickening with severe spinal canal narrowing and moderate right and severe left neural foramen narrowing. L5-S1: Disc bulge, facet hypertrophy, and ligamentum flavum thickening with mild left and moderate right subarticular recess narrowing and moderate bilateral neural foramen narrowing. Sacrum and iliac wings: Degenerative changes in the sacroiliac joints. IMPRESSION: Degenerative changes most pronounced at L3-4 and L4-5. Anatomic Lumbar Variant: None. L4-5 is considered the level of the iliac crest and assume there are 5 lumbar-type vertebrae. Hi Lift Operator: PSCB Transcribe Date/Time: Jun 18 2024 1:26P Dictated by : GIORGIO RAMIREZ MD This examination was interpreted and the report reviewed and electronically signed by: GIORGIO RAMIREZ MD on Jun 18 2024 1:30PM EST [id number] Normal [facility] Yumiko 06-12-2024 CNPN Telephone (FAMPWS) -- LAURACHARLINE ([id number]) 1955 M Date Time Provider Department 06/12/24 VIKTOR FERRERA During your visit today, we recorded the following information about you: Latasha Lara 06/12/2024 2:00 PM Signed Patient is requesting a mild sedative for his MRI coming up on June 18. Due to some claustrophobia and anxiety he has with MRI's if okay with filling the medication, he would like it sent to [facility] in [place]. Please review and advise patient. Latasha Lara June 12, 2024 2:00 PM Viktor Ferrera MD 06/12/2024 4:28 PM Signed OK for one Ativan as ordered; to take 30-60 minutes before MRI MD Arturo Drake Rilee, MA 06/12/2024 4:33 PM Signed Pt called and notified, verbalized understanding. Leonarda Morris MA Allergies As of Date: 06/12/2024 Noted Allergy Reaction KIDNEY BEANS 05/23/2011 8 - GI Upset LISINOPRIL 11/30/2011 3 - Cough SUNFLOWER SEED 05/23/2011 14 - Other: See Comments Comments: Adverse taste in mouth Date Reviewed: 05/22/2024 Reviewed by: Carolann Moore LPN - Fully Assessed Reason for Visit: Patient Question [5027] Primary Visit Diagnosis:Claustrophobia [F40.240] Order(s):LORazepam (ATIVAN) 0.5 mgTake 1 tablet by mouth as directed for 1 day. Take one pill 30-60 minutes before MRIDisp: 1 tabletRfl: 0 Prescriptions as of 06/12/2024 - LORazepam (ATIVAN) 0.5 mg Take 1 tablet by mouth as directed for 1 day. Take one pill 30-60 minutes before MRI - metFORMIN (GLUCOPHAGE) 500 mg tablet Take 1 tablet by mouth two times a day with meals. - cyclobenzaprine (FLEXERIL) 5 mg tablet Take 1 tablet by mouth three times a day. - trospium (SANCTURA) 20 mg tablet Take 1 tablet by mouth once daily. - tamsulosin (FLOMAX) 0.4 mg Take 2 capsules by mouth daily at bedtime. - atorvastatin (LIPITOR) 20 mg tablet Take 1 tablet by mouth once daily. - amLODIPine (NORVASC) 10 mg tablet Take 1 tablet by mouth once daily. - cholecalciferol, Vitamin D3, (VITAMIN D3) 1,250 mcg (50,000 unit) cap capsule Take 1 capsule by mouth one time a week. take with food - Valsartan-hydroCHLOROthiaz silverio (DIOVAN HCT) 80-12.5 mg per tablet Take 1 tablet by mouth once daily. - gabapentin (NEURONTIN) 300 mg capsule By mouth: 300mg qam, 600mg qHS - albuterol HFA (VENTOLIN HFA) 90 mcg/actuation inhaler Inhale 2 Puffs as instructed every 4 hours as needed for wheezing/shortness of breath. Problem List As Of Date 06/12/2024 Noted Resolved Sciatica [M54.30] 12/17/2007 09/21/2016 Intervertebral lumbar disc disorder with myelop* Patellar tendinitis [M76.50] 06/06/2011 04/28/2015 DVT of lower limb, acute (HCC) [I82.409] 07/13/2011 03/26/2017 Popliteal cyst [M71.20] 07/21/2011 04/28/2015 HTN (hypertension) [I10] 09/04/2011 Venous insufficiency [I87.2] 09/04/2011 Pain in joint, lower leg [M25.569] 11/02/2011 04/28/2015 Lumbar degenerative disc disease [M51.369] 07/09/2012 Hyperlipidemia with target LDL less than 100 [E*05/16/2013 Pappas's neuroma [G57.60] 05/16/2013 09/21/2016 Superficial spreading malignant melanoma of ski*12/03/2014 04/10/2024 DM (diabetes mellitus), 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/28/2015 Bilateral lumbar radiculopathy [M54.16] 04/28/2015 09/21/2016 Neoplasm of uncertain behavior of skin [D48.5] 03/27/2017 Chronic pain of both shoulders [M25.511, G89.29*04/12/2021 Neural foraminal stenosis of cervical spine [M4*05/20/2021 BPH associated with nocturia [N40.1, R35.1] 03/20/2022 Radiculopathy of lumbar region [M54.16] 05/09/2024 Cervical radiculopathy [M54.12] 05/27/2024 Cervical strain [S16.1XXA] 05/27/2024 Prescriptions ordered this encounter Disp Refills Start End LORAZEPAM 0.5 MG TABLET 1 ta* 0 06/12/2024 06/13/2024 Route: ORAL Sig: Take 1 tablet by mouth as directed for 1 day. Take one pill 30-60 minutes before MRI Encounter Status:Closed by LEONARDA MORRIS on 06/12/24 [facility] CNTHERAPYon 06-11-2024 CNTHERAPY OT/PT/Speech Visit ( PTWS) -- CHARLINE SANCHEZ ([id number]) 1955 M Date Time Provider Department 06/11/24 7:45 AM MARIO GLEZ PTWS Date Time Provider Department Center 06/11/2024 7:45 AM [id number], COLIN PTWS Alexandru Shafer Reason for Visit: Physical Therapy [503] Primary Visit Diagnosis:Strain of neck muscle, initial encounter [S16.1XXA] Other Visit Diagnosis:Cervical radiculopathy [M54.12] Allergies As of Date: 06/11/2024 Noted Allergy Reaction KIDNEY BEANS 05/23/2011 8 - GI Upset LISINOPRIL 11/30/2011 3 - Cough SUNFLOWER SEED 05/23/2011 14 - Other: See Comments Comments: Adverse taste in mouth Date Reviewed: 05/22/2024 Reviewed by: Carolann Moore LPN - Fully Assessed Prescriptions as of 06/11/2024 - metFORMIN (GLUCOPHAGE) 500 mg tablet Take 1 tablet by mouth two times a day with meals. - cyclobenzaprine (FLEXERIL) 5 mg tablet Take 1 tablet by mouth three times a day. - trospium (SANCTURA) 20 mg tablet Take 1 tablet by mouth once daily. - tamsulosin (FLOMAX) 0.4 mg Take 2 capsules by mouth daily at bedtime. - atorvastatin (LIPITOR) 20 mg tablet Take 1 tablet by mouth once daily. - amLODIPine (NORVASC) 10 mg tablet Take 1 tablet by mouth once daily. - cholecalciferol, Vitamin D3, (VITAMIN D3) 1,250 mcg (50,000 unit) cap capsule Take 1 capsule by mouth one time a week. take with food - Valsartan-hydroCHLOROthiaz silverio (DIOVAN HCT) 80-12.5 mg per tablet Take 1 tablet by mouth once daily. - gabapentin (NEURONTIN) 300 mg capsule By mouth: 300mg qam, 600mg qHS - albuterol HFA (VENTOLIN HFA) 90 mcg/actuation inhaler Inhale 2 Puffs as instructed every 4 hours as needed for wheezing/shortness of breath. [employer] Developer: Therapy (PT/OT/Speech/Resp) ID: [id number] 06/11/2024 8:14 AM Author: MARIO GLEZ Signed by MARIO GLEZ PT on 06/11/2024 at 8:14 AM Document text: Program_ID:[id number] Access Code: [email or web address] URL: [email or web address]/ Date: 06-11-2024 Prepared By: Mario Glez Program Notes Exercises - Gentle Levator Scapulae Stretch - 2 x daily - 7 x weekly - 2-3 sets - reps - Upper Trapezius Stretch - 2 x daily - 7 x weekly - 2-3 sets - reps - Standing Upper Trapezius Mobilization with Small Ball - 1-2 x daily - 7 x weekly - sets - reps - Shoulder External Rotation and Scapular Retraction with Resistance - 2 x daily - 7 x weekly - 2-3 sets - 10 reps - Supine Cervical Retraction with Towel - 2 x daily - 7 x weekly - 2-3 sets - 10 reps Normal [facility] THERAPY NTon 06-11-2024 THERAPY NT HNO ID: [id number] Author: MARIO GLEZ PT Service: ? Author Type: Physical Therapist Type: Therapy (PT/OT/Speech/Resp) Filed: 06/11/2024 08:14 Note Text: Program_ID:[id number] Access Code: [email or web address] URL: [email or web address] [email or web address]/ Date: 06-11-2024 Prepared By: Mario Glez Program Notes Exercises - Gentle Levator Scapulae Stretch - 2 x daily - 7 x weekly - 2-3 sets - reps - Upper Trapezius Stretch - 2 x daily - 7 x weekly - 2-3 sets - reps - Standing Upper Trapezius Mobilization with Small Ball - 1-2 x daily - 7 x weekly - sets - reps - Shoulder External Rotation and Scapular Retraction with Resistance - 2 x daily - 7 x weekly - 2-3 sets - 10 reps - Supine Cervical Retraction with Towel - 2 x daily - 7 x weekly - 2-3 sets - 10 reps Normal [facility] CNTHERAPYon 06-04-2024 CNTHERAPY OT/PT/Speech Visit ( PTWS) -- CHARLINE SANCHEZ ([id number]) 1955 M Date Time Provider Department 06/04/24 7:45 AM MARIO GLEZ PTWS Date Time Provider Department Center 06/04/2024 7:45 AM [id number], COLIN PTAMPARO Shafer Reason for Visit: Physical Therapy [503] Primary Visit Diagnosis:Strain of neck muscle, initial encounter [S16.1XXA] Other Visit Diagnosis:Cervical radiculopathy [M54.12] Allergies As of Date: 06/04/2024 Noted Allergy Reaction KIDNEY BEANS 05/23/2011 8 - GI Upset LISINOPRIL 11/30/2011 3 - Cough SUNFLOWER SEED 05/23/2011 14 - Other: See Comments Comments: Adverse taste in mouth Date Reviewed: 05/22/2024 Reviewed by: Carolann Moore LPN - Fully Assessed Prescriptions as of 06/04/2024 - metFORMIN (GLUCOPHAGE) 500 mg tablet Take 1 tablet by mouth two times a day with meals. - cyclobenzaprine (FLEXERIL) 5 mg tablet Take 1 tablet by mouth three times a day. - trospium (SANCTURA) 20 mg tablet Take 1 tablet by mouth once daily. - tamsulosin (FLOMAX) 0.4 mg Take 2 capsules by mouth daily at bedtime. - atorvastatin (LIPITOR) 20 mg tablet Take 1 tablet by mouth once daily. - amLODIPine (NORVASC) 10 mg tablet Take 1 tablet by mouth once daily. - cholecalciferol, Vitamin D3, (VITAMIN D3) 1,250 mcg (50,000 unit) cap capsule Take 1 capsule by mouth one time a week. take with food - Valsartan-hydroCHLOROthiaz silverio (DIOVAN HCT) 80-12.5 mg per tablet Take 1 tablet by mouth once daily. - gabapentin (NEURONTIN) 300 mg capsule By mouth: 300mg qam, 600mg qHS - albuterol HFA (VENTOLIN HFA) 90 mcg/actuation inhaler Inhale 2 Puffs as instructed every 4 hours as needed for wheezing/shortness of breath. Websphere Developer: Therapy (PT/OT/Speech/Resp) ID: [id number] 06/04/2024 8:28 AM Author: MARIO GLEZ Signed by MARIO GLEZ PT on 06/04/2024 at 8:28 AM Document text: Program_ID:[id number] Access Code: [email or web address] URL: [email or web address]/ Date: 06-04-2024 Prepared By: Mario Glez Program Notes Exercises - Seated Scapular Retraction - 2 x daily - 7 x weekly - 2 sets - 10 reps - Gentle Levator Scapulae Stretch - 2 x daily - 7 x weekly - 2-3 sets - reps - Upper Trapezius Stretch - 2 x daily - 7 x weekly - 2-3 sets - reps - Standing Upper Trapezius Mobilization with Small Ball - 1-2 x daily - 7 x weekly - sets - reps Normal [facility] THERAPY NTon 06-04-2024 THERAPY NT HNO ID: [id number] Author: MARIO GLEZ, PT Service: ? Author Type: Physical Therapist Type: Therapy (PT/OT/Speech/Resp) Filed: 06/04/2024 08:28 Note Text: Program_ID:[id number] Access Code: [email or web address] URL: [email or web address] [email or web address]/ Date: 06-04-2024 Prepared By: Mario Glez Program Notes Exercises - Seated Scapular Retraction - 2 x daily - 7 x weekly - 2 sets - 10 reps - Gentle Levator Scapulae Stretch - 2 x daily - 7 x weekly - 2-3 sets - reps - Upper Trapezius Stretch - 2 x daily - 7 x weekly - 2-3 sets - reps - Standing Upper Trapezius Mobilization with Small Ball - 1-2 x daily - 7 x weekly - sets - reps Normal [facility] [id number] 05-28-2024 [id number] HNO ID: [id number] Author: MARIO GLEZ, PT Service: ? Author Type: Physical Therapist Type: [id number] Filed: 05/28/2024 06:37 Note Text: [facility] Rehabilitation and Sports Therapy Physical Therapy Plan of Care Certification Patient Name: Charline Sanchez : 1955 [facility] #: [id number] Date: 05/27/2024 To: Michelle Martin NP. From Therapist: Mario Glez PT RE: Patient Certification/ Recertification Your review, approval and electronic signature are required in order to comply with Payor: [employer] / Plan: [employer] MED[employer]ARE PPO / Product Type: PPO / regulations. The identified Physical Therapy PLAN OF CARE for the patient is as follows: M54.12 Cervical radiculopathy (primary encounter diagnosis) S16.1XXA Strain of neck muscle, initial encounter PLAN OF CARE UPDATE: Assessment: Charline Sanchez presents to PT for R Sided-Neck AND Periscap Pain. Objective findings present Musculoskeletal in Nature. Patient also being seen for Chronic LBP will update goals and add neck goals in. Patient present with impairments in ADL's, flexibility, independence in exercise, overall function, patient reported outcome measures, posture, range of motion, soft tissue healing, symptom management, and tissue tenderness that interfere with physical activities, sleeping, Comments Neck ROM, Driving.. Current prognosis is Good due to: current objective clinical presentation, acuteness of condition . The patient will benefit from continued skilled therapy services to meet the updated goals for this plan of care as noted below. LOW BACK: Goals for Episode of Care: established 04/29/24 Patient reported outcome of physical function will increase T-score by a minimum 5 points. (NOT MET) Dickinson in home exercise program. Partially MET Patient will decrease pain rating by 2 points to meet minimal clinical important difference for numeric pain rating scale. (Progressing Towards) Restore pain-free lumbar ROM to WNL to allow for improved functional Mobility (Progressing Towards) Stand / Walk to return to regular walking program and ADLs without pain/symptoms. (Progressing Towards) Patient will increase strength of trunk to 4+/5 to allow for return to prior functional status and perform ADLs. (Progressing Towards) NECK: Added 05/27/24 Patient reported outcome of physical function will increase T-score by a minimum 5 points. Independent in a Home Exercise Program. Patient will decrease pain rating by 2 points to meet minimal clinical important difference for numeric pain rating scale. Restore pain free cervical ROM to WFL to allow for improved ADL/IADLs. Drive with no aggravation of pain/symptoms. Sleep throughout the night without pain/symptoms. Improve NDI Score by 6 points (12%) to indicate a Minimal Clinical Important Difference. (19 on eval.) Time Frame for Goals and Treatment : 07/01/24 Patient Goals: Alleviate Pain. Planned Interventions, Frequency, and Duration: 1x/week, 3 weeks (Added two visits to one already scheduled.) Total Number of Visits Planned: 3 Patient to be seen for Therapeutic exercise (68688), Neuromuscular re-education (00133), Manual therapy (25592), Therapeutic activities (55532), Self-nursing home management (77328), Patient/Family/Caregiver Education PLAN FOR NEXT VISIT: Review, correct and progress HEP to tolerance progressing to tolerance. Treat low back and neck as tolerated and PRN. For further details regarding this patient refer to the Physical Therapy electronically documented visit dated 05/27/2024. Provider Attestation I have reviewed the treatment plan for Charline Sanchez, CCF# [id number] for the period of 05/27/24 -- 07/01/24, established on 05/27/2024. Signature certifies the need for therapy services. [facility] [id number] HNO ID: [id number] Author: MARIO GLEZ PT Service: ? Author Type: Physical Therapist Type: [id number] Filed: 05/28/2024 06:35 Note Text: [facility] Physical Therapy Plan of Care Certification Patient Name: Charline Sanchez : 1955 CCF #: [id number] Date: 05/27/2024 To: Viktor Ferrera MD From Therapist: Mario Glez PT RE: Patient Certification/ Recertification Your review, approval and electronic signature are required in order to comply with Payor: AET MEDICARE / Plan: AET[employer] MEDICARE PPO / Product Type: PPO / regulations. The identified Physical Therapy PLAN OF CARE for the patient is as follows: Radiculopathy of lumbar region [M54.16] PLAN OF CARE UPDATE: Assessment: Charline Sanchez presents to PT for R Sided-Neck AND Periscap Pain. Objective findings present Musculoskeletal in Nature. Patient also being seen for Chronic LBP will update goals and add neck goals in. Patient present with impairments in ADL's, flexibility, independence in exercise, overall function, patient reported outcome measures, posture, range of motion, soft tissue healing, symptom management, and tissue tenderness that interfere with physical activities, sleeping, Comments Neck ROM, Driving.. Current prognosis is Good due to: current objective clinical presentation, acuteness of condition. The patient will benefit from continued skilled therapy services to meet the updated goals for this plan of care as noted below. LOW BACK: Goals for Episode of Care: established 04/29/24 Patient reported outcome of physical function will increase T-score by a minimum 5 points. (NOT MET) Dickinson in home exercise program. Partially MET Patient will decrease pain rating by 2 points to meet minimal clinical important difference for numeric pain rating scale. (Progressing Towards) Restore pain-free lumbar ROM to WNL to allow for improved functional Mobility (Progressing Towards) Stand / Walk to return to regular walking program and ADLs without pain/symptoms. (Progressing Towards) Patient will increase strength of trunk to 4+/5 to allow for return to prior functional status and perform ADLs. (Progressing Towards) NECK: Added 05/27/24 Patient reported outcome of physical function will increase T-score by a minimum 5 points. Independent in a Home Exercise Program. Patient will decrease pain rating by 2 points to meet minimal clinical important difference for numeric pain rating scale. Restore pain free cervical ROM to WFL to allow for improved ADL/IADLs. Drive with no aggravation of pain/symptoms. Sleep throughout the night without pain/symptoms. Improve NDI Score by 6 points (12%) to indicate a Minimal Clinical Important Difference. (19 on eval.) Time Frame for Goals and Treatment : 07/01/24 Patient Goals: Alleviate Pain. Planned Interventions, Frequency, and Duration: 1x/week, 3 weeks (Added two visits to one already scheduled.) Total Number of Visits Planned: 3 Patient to be seen for Therapeutic exercise (45059), Neuromuscular re-education (82675), Manual therapy (23678), Therapeutic activities (69216), Self-nursing home management (17752), Patient/Family/Caregiver Education PLAN FOR NEXT VISIT: Review, correct and progress HEP to tolerance progressing to tolerance. Treat low back and neck as tolerated and PRN. For further details regarding this patient refer to the Physical Therapy electronically documented visit dated 05/27/2024. Provider Attestation I have reviewed the treatment plan for Charline Delcid Laura, CCF# [id number] for the period of 05/27/24 -- 07/01/24, established on 05/27/2024. Signature certifies the need for therapy services. [facility] CNTHERAPYon 05-27-2024 CNTHERAPY OT/PT/Speech Visit ( PTWS) -- CHARLINE SANCHEZ ([id number]) 1955 M Date Time Provider Department 05/27/24 8:30 AM MARIO GLEZ PTWS Date Time Provider Department Center 05/27/2024 8:30 AM [id number], COLIN PTWS Alexandru Shafer Reason for Visit: PT Re-eval [891] Primary Visit Diagnosis:Cervical radiculopathy [M54.12] Other Visit Diagnosis:Strain of neck muscle, initial encounter [S16.1XXA] Allergies As of Date: 05/27/2024 Noted Allergy Reaction KIDNEY BEANS 05/23/2011 8 - GI Upset LISINOPRIL 11/30/2011 3 - Cough SUNFLOWER SEED 05/23/2011 14 - Other: See Comments Comments: Adverse taste in mouth Date Reviewed: 05/22/2024 Reviewed by: Carolann Moore LPN - Fully Assessed Prescriptions as of 06/02/2024 - metFORMIN (GLUCOPHAGE) 500 mg tablet Take 1 tablet by mouth two times a day with meals. - cyclobenzaprine (FLEXERIL) 5 mg tablet Take 1 tablet by mouth three times a day. - trospium (SANCTURA) 20 mg tablet Take 1 tablet by mouth once daily. - tamsulosin (FLOMAX) 0.4 mg Take 2 capsules by mouth daily at bedtime. - atorvastatin (LIPITOR) 20 mg tablet Take 1 tablet by mouth once daily. - amLODIPine (NORVASC) 10 mg tablet Take 1 tablet by mouth once daily. - cholecalciferol, Vitamin D3, (VITAMIN D3) 1,250 mcg (50,000 unit) cap capsule Take 1 capsule by mouth one time a week. take with food - Valsartan-hydroCHLOROthiaz silverio (DIOVAN HCT) 80-12.5 mg per tablet Take 1 tablet by mouth once daily. - gabapentin (NEURONTIN) 300 mg capsule By mouth: 300mg qam, 600mg qHS - albuterol HFA (VENTOLIN HFA) 90 mcg/actuation inhaler Inhale 2 Puffs as instructed every 4 hours as needed for wheezing/shortness of breath. Websphere Developer: Addendum Therapy (PT/OT/Speech/Resp) ID: [id number] 05/27/2024 2:49 PM Author: MARIO GLEZ Signed by MARIO GLEZ PT on 05/27/2024 at 2:49 PM * * * This document replaces document [id number] * * * Document text: Program_ID:[id number] Access Code: [email or web address] URL: [email or web address]/ Date: 05-27-2024 Prepared By: Mario Glez Program Notes Exercises - Seated Scapular Retraction - 2 x daily - 7 x weekly - 2 sets - 10 reps - Gentle Levator Scapulae Stretch - 2 x daily - 7 x weekly - 2-3 sets - reps - Upper Trapezius Stretch - 2 x daily - 7 x weekly - 2-3 sets - reps [facility] THERAPY NTon 05-27-2024 THERAPY NT HNO ID: [id number] Author: MARIO GLEZ, PT Service: ? Author Type: Physical Therapist Type: Therapy (PT/OT/Speech/Resp) Filed: 05/27/2024 14:49 Note Text: Program_ID:[id number] Access Code: [email or web address] URL: [email or web address]/ Date: 05-27-2024 Prepared By: Mario Glez Program Notes Exercises - Seated Scapular Retraction - 2 x daily - 7 x weekly - 2 sets - 10 reps - Gentle Levator Scapulae Stretch - 2 x daily - 7 x weekly - 2-3 sets - reps - Upper Trapezius Stretch - 2 x daily - 7 x weekly - 2-3 sets - reps Normal [facility] CNOVon 05-22-2024 CNOV Office Visit (FAMPWS ) -- CHARLINE SANCHEZ ([id number]) 1955 M Date Time Provider Department 05/22/24 7:00 AM MICHELLE MARTIN [facility] During your visit today, we recorded the following information about you: Pulse Respiration Blood pressure Weight 80/minute 16/minute 116/70 94.6 kg Michelle Martin APRN.MUSIC COORDINATOR 05/22/2024 8:04 AM Signed This is a 69 year old male who presents today with: Patient presents with: Acute Visit: Stiff neck HISTORY OF PRESENT ILLNESS: Charline Sanchez is a 69 year old male. Patient presents with: Acute Visit: Stiff neck Here in the office for neck pain follow up. Went to express care yesterday. Given rx for prednisone burst 40 mg for 5 days and flexeril. Woke up Sunday with right sided neck pain. Pain mildly improved today. Pain seems to radiate into the right upper arm and shoulder blade. No numbness and tingling. History of cervical spine arthritis. Has had cervical injections with Dr. Parsons (pain management) in the past. MRI Cervical Spine: 2020 IMPRESSION: Mild degenerative changes of the cervical spine as discussed level by level in the body of the report. Findings are most pronounced at C4-5 with disc/osteophyte complex bulge abutting cord ventrally, no cord compression or intramedullary signal abnormality. PAST MEDICAL HISTORY: PAST MEDICAL HISTORY Diagnosis Date BPH associated with nocturia Controlled type 2 diabetes mellitus without complication, without long-term current use of insulin ([facility]) 06/19/2014 06/19/14 HbA1c 8.1 DVT of lower limb, acute (HCC) 07/13/2011 Elevated prostate specific antigen (PSA) 12/10/2023 Hyperlipidemia LDL goal < 100 05/16/2013 Lumbar degenerative disc disease 07/09/2012 Pappas's neuroma 05/16/2013 OAB (overactive bladder) 03/24/2024 Sciatica Superficial spreading malignant melanoma of skin (HCC) 12/03/2014 PAST SURGICAL HISTORY Procedure Laterality Date EXC SKIN MALIG >4CM REMAINDR BODY 04/16/2017 Squamous cell carcinoma completely excised clean margins MELANOMA OF SKIN EXCISION SYN RPT Left 2015 back MELANOMA OF SKIN EXCISION SYN RPT 04/16/2017 right posterior ear lesion [facility] TONSILLECTOMY PRIMARY/SECONDARY Tonsillectomy ALLERGIES Kidney Beans, Lisinopril, and Tyler Seed MEDICATIONS Current Outpatient Medications Medication Sig cyclobenzaprine (FLEXERIL) 5 mg tablet Take 1 tablet by mouth three times a day. predniSONE (DELTASONE) 20 mg tablet Take 2 tablets by mouth once daily for 5 days. trospium (SANCTURA) 20 mg tablet Take 1 tablet by mouth once daily. metFORMIN (GLUCOPHAGE) 500 mg tablet Take 1 tablet by mouth two times a day with meals. tamsulosin (FLOMAX) 0.4 mg Take 2 capsules by mouth daily at bedtime. atorvastatin (LIPITOR) 20 mg tablet Take 1 tablet by mouth once daily. amLODIPine (NORVASC) 10 mg tablet Take 1 tablet by mouth once daily. cholecalciferol, Vitamin D3, (VITAMIN D3) 1,250 mcg (50,000 unit) cap capsule Take 1 capsule by mouth one time a week. take with food Valsartan-hydroCHLOROthiaz silverio (DIOVAN HCT) 80-12.5 mg per tablet Take 1 tablet by mouth once daily. gabapentin (NEURONTIN) 300 mg capsule By mouth: 300mg qam, 600mg qHS (Patient taking differently: Patient takes 300 MG by mouth twice daily) albuterol HFA (VENTOLIN HFA) 90 mcg/actuation inhaler Inhale 2 Puffs as instructed every 4 hours as needed for wheezing/shortness of breath. (Patient not taking: Reported on 05/21/2024) No current facility-administered medications for this visit. FAMILY HISTORY Problem Relation Age of Onset Heart Father valve Arthritis Mother knees,hips,lumbar spine Diabetes Mother other (electrical injury) Brother other (unknown) Brother Social History Tobacco Use Smoking status: Never Smokeless tobacco: Never Vaping Use Vaping status: Never Used Substance Use Topics Alcohol use: Not Currently Comment: occassionally Drug use: Never REVIEW OF SYSTEMS GENERAL: No weight loss, malaise or fevers/chills HEENT: Negative for frequent or significant headaches, No changes in hearing or vision. NECK: Negative for lumps, goiter, pain and significant neck swelling RESPIRATORY: Negative for cough, hemoptysis, wheezing, dyspnea or shortness of breath CARDIOVASCULAR: Negative for chest pain, leg swelling, orthopnea, or palpitations GI: No nausea, vomiting, or diarrhea/constipation. No hematochezia/melena. No heartburn or reflux symptoms. : No history of dysuria, frequency or incontinence MUSCULOSKELETAL: + Neck Pain SKIN: Negative for lesions, rash, and itching ENDOCRINE: Negative for cold or heat intolerance, polyuria, polydipsia and goiter NEURO: No history of headaches, syncope, paralysis, seizures or tremors MOOD: Negative for depression, anxiety, or suicidal ideation. EXAM: BP 116/70 Pulse 80 Resp 16 Wt 94.6 kg (208 lb 8.9 oz) SpO2 96% BMI 31.71 (more content not included)... [facility] CNOVon 05-21-2024 CNOV Office Visit (UCWSTR ) -- CHARLINE SANCHEZ ([id number]) 1955 M Date Time Provider Department 05/21/24 8:30 AM HEATH FUENTES WSTR During your visit today, we recorded the following information about you: Temperature Pulse Respiration Blood pressure 97.3 degrees 76/minute 16/minute 124/76 Weight 95.6 kg Heath Fuentes PA-C 05/21/2024 8:55 AM Signed Ice Gentle stretching Check sugars while on prednisone Be cautious of sedation from muscle relaxant Heath Fuentes PA-C 05/21/2024 10:20 AM Signed This note was created using [employer]. Subjective Charline Sanchez is a 69 year old male. HPI Patient presents with right-sided neck pain over the past 3 days. He states he woke up with some stiffness on that side which has progressed to sharp pain when he tries to move his neck. Goes into his right shoulder blade area. He does have a history of stenosis of the cervical spine as well as arthritis. He had an MRI in 2020. No injury or trauma to his neck. No pain radiating down his arm. No weakness numbness or tingling. Pain seems to worsen with any kind of range of motion. He did try some ibuprofen which helped minimally yesterday. He does have follow-up with PCP tomorrow. Review of Systems Constitutional: Negative. HENT: Negative. Respiratory: Negative. Cardiovascular: Negative. Gastrointestinal: Negative. Musculoskeletal: Positive for neck pain and neck stiffness. All other systems reviewed and are negative. PAST MEDICAL HISTORY Diagnosis Date BPH associated with nocturia Controlled type 2 diabetes mellitus without complication, without long-term current use of insulin ([facility]) 06/19/2014 06/19/14 HbA1c 8.1 DVT of lower limb, acute ([facility]) 07/13/2011 Elevated prostate specific antigen (PSA) 12/10/2023 Hyperlipidemia LDL goal < 100 05/16/2013 Lumbar degenerative disc disease 07/09/2012 Pappas's neuroma 05/16/2013 OAB (overactive bladder) 03/24/2024 Sciatica Superficial spreading malignant melanoma of skin ([facility]) 12/03/2014 Current Outpatient Medications Medication Sig Dispense Refill trospium (SANCTURA) 20 mg tablet Take 1 tablet by mouth once daily. 90 tablet 1 metFORMIN (GLUCOPHAGE) 500 mg tablet Take 1 tablet by mouth two times a day with meals. 180 tablet 3 tamsulosin (FLOMAX) 0.4 mg Take 2 capsules by mouth daily at bedtime. 180 capsule 3 atorvastatin (LIPITOR) 20 mg tablet Take 1 tablet by mouth once daily. 90 tablet 3 amLODIPine (NORVASC) 10 mg tablet Take 1 tablet by mouth once daily. 90 tablet 3 cholecalciferol, Vitamin D3, (VITAMIN D3) 1,250 mcg (50,000 unit) cap capsule Take 1 capsule by mouth one time a week. take with food 12 capsule 3 Valsartan-hydroCHLOROthiaz silverio (DIOVAN HCT) 80-12.5 mg per tablet Take 1 tablet by mouth once daily. 90 tablet 3 gabapentin (NEURONTIN) 300 mg capsule By mouth: 300mg qam, 600mg qHS (Patient taking differently: Patient takes 300 MG by mouth twice daily) 90 capsule 2 cyclobenzaprine (FLEXERIL) 5 mg tablet Take 1 tablet by mouth three times a day. 12 tablet 0 predniSONE (DELTASONE) 20 mg tablet Take 2 tablets by mouth once daily for 5 days. 10 tablet 0 albuterol HFA (VENTOLIN HFA) 90 mcg/actuation inhaler Inhale 2 Puffs as instructed every 4 hours as needed for wheezing/shortness of breath. (Patient not taking: Reported on 05/21/2024) 1 Each 0 No current facility-administered medications for this visit. PAST SURGICAL HISTORY Procedure Laterality Date EXC SKIN MALIG >4CM REMAINDR BODY 04/16/2017 Squamous cell carcinoma completely excised clean margins MELANOMA OF SKIN EXCISION SYN RPT Left 2015 back MELANOMA OF SKIN EXCISION SYN RPT 04/16/2017 right posterior ear lesion [facility] TONSILLECTOMY PRIMARY/SECONDARY Tonsillectomy FAMILY HISTORY Problem Relation Age of Onset Heart Father valve Arthritis Mother knees,hips,lumbar spine Diabetes Mother other (electrical injury) Brother other (unknown) Brother Social History Tobacco Use Smoking status: Never Smokeless tobacco: Never Vaping Use Vaping status: Never Used Substance Use Topics Alcohol use: Not Currently Comment: occassionally Drug use: Never Objective BP 124/76 Pulse 76 Temp 36.3 ?C (97.3 ?F) Resp 16 Wt 95.6 kg (210 lb 12.2 oz) SpO2 95% BMI 32.05 kg/m? Physical Exam Vitals reviewed. Constitutional: Appearance: Normal appearance. HENT: Head: Normocephalic and atraumatic. Neck: Comments: Patient has tenderness along the right paraspinal musculature of the neck. No midline tenderness. Limited flexion and extension as well as rotation of the neck due to pain. Normal strength and sensation in upper extremities. Radial pulses 2+. Normal hand grasp strength bilaterally. Normal distal sensation. Some spasm noted along the trapezius on the right side. Cardiovascular: Rate and Rhythm: Normal rate and regular rhythm. Heart (more content not included)... Normal [facility] CNTHERAPYon 05-21-2024 CNTHERAPY OT/PT/Speech Visit ( PTWS) -- CHARLINE SANCHEZ ([id number]) 1955 M Date Time Provider Department 05/21/24 7:45 AM MARIO GLEZ PTWS Date Time Provider Department Center 05/21/2024 7:45 AM [id number], COL[facility] PTWS Alexandru Shafer Reason for Visit: Patient Left Without Being Seen [2005] Primary Visit Diagnosis:Radiculopathy of lumbar region [M54.16] Allergies As of Date: 05/21/2024 Noted Allergy Reaction KIDNEY BEANS 05/23/2011 8 - GI Upset LISINOPRIL 11/30/2011 3 - Cough SUNFLOWER SEED 05/23/2011 14 - Other: See Comments Comments: Adverse taste in mouth Date Reviewed: 05/12/2024 Reviewed by: Francisco Hightower APRN.MUSIC COORDINATOR, DNP - Fully Assessed Prescriptions as of 05/21/2024 - trospium (SANCTURA) 20 mg tablet Take 1 tablet by mouth once daily. - metFORMIN (GLUCOPHAGE) 500 mg tablet Take 1 tablet by mouth two times a day with meals. - tamsulosin (FLOMAX) 0.4 mg Take 2 capsules by mouth daily at bedtime. - atorvastatin (LIPITOR) 20 mg tablet Take 1 tablet by mouth once daily. - amLODIPine (NORVASC) 10 mg tablet Take 1 tablet by mouth once daily. - cholecalciferol, Vitamin D3, (VITAMIN D3) 1,250 mcg (50,000 unit) cap capsule Take 1 capsule by mouth one time a week. take with food - Valsartan-hydroCHLOROthiaz silverio (DIOVAN HCT) 80-12.5 mg per tablet Take 1 tablet by mouth once daily. - gabapentin (NEURONTIN) 300 mg capsule By mouth: 300mg qam, 600mg qHS - albuterol HFA (VENTOLIN HFA) 90 mcg/actuation inhaler Inhale 2 Puffs as instructed every 4 hours as needed for wheezing/shortness of breath. Normal [facility] CNTHERAPYon 05-14-2024 CNTHERAPY OT/PT/Speech Visit ( PTWS) -- CHARLINE SANCHEZ ([id number]) 1955 M Date Time Provider Department 05/14/24 7:45 AM MARIO GLEZ PTWS Date Time Provider Department Center 05/14/2024 7:45 AM [id number], COLIN PTWS Alexandru Shafer Reason for Visit: Physical Therapy [503] Primary Visit Diagnosis:Radiculopathy of lumbar region [M54.16] Allergies As of Date: 05/14/2024 Noted Allergy Reaction KIDNEY BEANS 05/23/2011 8 - GI Upset LISINOPRIL 11/30/2011 3 - Cough SUNFLOWER SEED 05/23/2011 14 - Other: See Comments Comments: Adverse taste in mouth Date Reviewed: 05/12/2024 Reviewed by: Francisco Hightower APRN.MUSIC COORDINATOR, DNP - Fully Assessed Prescriptions as of 05/14/2024 - trospium (SANCTURA) 20 mg tablet Take 1 tablet by mouth once daily. - metFORMIN (GLUCOPHAGE) 500 mg tablet Take 1 tablet by mouth two times a day with meals. - tamsulosin (FLOMAX) 0.4 mg Take 2 capsules by mouth daily at bedtime. - atorvastatin (LIPITOR) 20 mg tablet Take 1 tablet by mouth once daily. - amLODIPine (NORVASC) 10 mg tablet Take 1 tablet by mouth once daily. - cholecalciferol, Vitamin D3, (VITAMIN D3) 1,250 mcg (50,000 unit) cap capsule Take 1 capsule by mouth one time a week. take with food - Valsartan-hydroCHLOROthiaz silverio (DIOVAN HCT) 80-12.5 mg per tablet Take 1 tablet by mouth once daily. - gabapentin (NEURONTIN) 300 mg capsule By mouth: 300mg qam, 600mg qHS - albuterol HFA (VENTOLIN HFA) 90 mcg/actuation inhaler Inhale 2 Puffs as instructed every 4 hours as needed for wheezing/shortness of breath. Normal [facility] CNOVon 05-12-2024 CNOV Office Visit (UROLWS ) -- CHARLINE SANCHEZ ([id number]) 1955 M Date Time Provider Department 05/12/24 9:30 AM FRANCISCO HIGHTOWER UROTRINA During your visit today, we recorded the following information about you: Temperature Pulse Respiration Blood pressure 97.7 degrees 70/minute 14/minute 132/80 Weight Height 93.9 kg 1.727 m Francisco Hightower APRN.MUSIC COORDINATOR, DNP 05/12/2024 10:27 AM Signed [facility] PSA/PROSTATE EVALUATION HISTORY AND PHYSICAL EXAM PATIENT: Charline Sanchez (68 year old) 12/10/2023 PCP: Viktor Ferrera MD REFERRING Provider: Michelle Martin APRN.C* ====== Consultation requested by Dr. Michelle Martin [address] [facility] [address] for an opinion regarding Elevated PSA and BPH my final recommendations will be communicated back to the requesting physician by way of shared Medical record or letter via US mail. CC: Elevated PSA and BPH HPI: The patient is 68 year old and is referred for evaluation of elevated PSA and BPH. Past med hx: HTN, DM, Chronic LBP, HLD Last A1C: 7.4 Seen in 12/10/23 for urinary symptoms and PSA. Elevated PSA: PSA elevation was noted to be 4.0 ng/mL. Prior studies include PSA of 4.07 in 2022. Was to obtain Free PSA prior to appt, but did not. No prior Bx or MRI of prostate No fhx of cancers - Renal, bladder or prostate BPH: On Flomax. C/o NTF 3-4 times. Increased Flomax to 2 caps at bedtime. Had dizziness for the first week and stopped taking 2 caps. Reduced back to one cap. Still taking on Flomax cap. At last appt Trial of Trospium 20mg daily. No sig change in symptoms with Trospium use. No SE. PRESENTING HISTORY: Hematuria: none Obstructive voiding symptoms: weak stream. Irritative voiding symptoms: frequency, urgency, and nocturia Urinary retention: no Urinary incontinence: no Urinary tract infection: no Patient Entered Questionnaires: INTERNATIONAL PROSTATE SYMPTOM SCORE (I-PSS) PREVIOUS TOTAL IPSS SCORE: 11 QOL = 4 1. Incomplete emptying 1 2. Frequency 1 3. Intermittency 2 4. Urgency 3 5. Weak stream 1 6. Straining 0 7. Nocturia 3 TOTAL IPSS SCORE 11 QOL = 4 PROMIS Global Health 09/02/2019 04/29/2024 PROMIS Global Health Scale Physical Health Percentile 15 41 Mental Health Percentile 26 63 Percentiles provide an indication of how the patient's score ranks in relation to the general population. Higher percentile rankings indicate better function/quality of life. 50th percentile is the average of the general population and indicates half of respondents had a worse score. MEDICATIONS: Current Outpatient Medications Medication Sig metFORMIN (GLUCOPHAGE) 500 mg tablet Take 1 tablet by mouth two times a day with meals. tamsulosin (FLOMAX) 0.4 mg Take 2 capsules by mouth daily at bedtime. atorvastatin (LIPITOR) 20 mg tablet Take 1 tablet by mouth once daily. amLODIPine (NORVASC) 10 mg tablet Take 1 tablet by mouth once daily. cholecalciferol, Vitamin D3, (VITAMIN D3) 1,250 mcg (50,000 unit) cap capsule Take 1 capsule by mouth one time a week. take with food Valsartan-hydroCHLOROthiaz silverio (DIOVAN HCT) 80-12.5 mg per tablet Take 1 tablet by mouth once daily. gabapentin (NEURONTIN) 300 mg capsule By mouth: 300mg qam, 600mg qHS (Patient taking differently: Patient takes 300 MG by mouth twice daily) albuterol HFA (VENTOLIN HFA) 90 mcg/actuation inhaler Inhale 2 Puffs as instructed every 4 hours as needed for wheezing/shortness of breath. trospium (SANCTURA) 20 mg tablet Take 1 tablet by mouth once daily. No current facility-administered medications for this visit. HISTORY: PAST MEDICAL HISTORY Diagnosis Date BPH associated with nocturia Controlled type 2 diabetes mellitus without complication, without long-term current use of insulin (HCC) 06/19/2014 06/19/14 HbA1c 8.1 DVT of lower limb, acute (HCC) 07/13/2011 Elevated prostate specific antigen (PSA) 12/10/2023 Hyperlipidemia LDL goal < 100 05/16/2013 Lumbar degenerative disc disease 07/09/2012 Pappas's neuroma 05/16/2013 OAB (overactive bladder) 03/24/2024 Sciatica Superficial spreading malignant melanoma of skin (HCC) 12/03/2014 PAST SURGICAL HISTORY Procedure Laterality Date EXC SKIN MALIG >4CM REMAINDR BODY 04/16/2017 Squamous cell carcinoma completely excised clean margins MELANOMA OF SKIN EXCISION SYN RPT Left 2015 back MELANOMA OF SKIN EXCISION SYN RPT 04/16/2017 right posterior ear lesion [facility] TONSILLECTOMY PRIMARY/SECONDARY Tonsillectomy FAMILY HISTORY Problem Relation Age of Onset Heart Father valve Arthritis Mother knees,hips,lumbar spine Diabetes Mother other (electrical injury) Brother other (unknown) Brother Social History Tobacco Use Smoking status: Never Smokeless tobacco: Never Vaping Use Vaping status: Never Used Substance Use Topics Alcohol use: Not Currently (more content not included)... Normal [facility] UA DIP, URINE (POC)on 2023 BILIRUBIN UA (POCT) Negative Negative [facility] CLARITY UA (POCT) Slightly Cloudy [facility] COLOR UA (POCT) Yellow [facility] GLUCOSE UA (POCT) 100 mg/dL Abnormal Negative [facility] Hemoglobin Ql (U) Trace-intact Abnormal Negative [facility] Interpretation and review of laboratory results Abnormal [facility] KETONE UA (POCT) Negative Negative mg/dL [facility] LEUKOCYTES UA (POCT) Negative [facility] ([facility]) Negative Negative [facility] PH UA (POCT) 7.5 4.5 - 8.0 [facility] Protein Ql (U) Negative Negative mg/dL [facility] SPECIFIC GRAVITY UA (POCT) 1.020 1.005 - 1.030 [facility] UROBILINOGEN UA (POCT) 0.2 Normal E.U./dL [facility] Location:[facility], [address] , [place], [place], [id number] [place] [address] POINT OF CARE [facility] Urinalysis complete panel (U )on 05-12-2024 Bacteria LM.HPF (Urine sed) [#/Area] Negative Normal Negative [facility] Comment on above: Order Comment: Speci men Type: BLOOD SPECIMEN Ordering Facility: [facility] Address: [address] [place] [address] Performed By: #### 2 4323-8, 63857-9 #### [facility] CLIA [id number] [address] [place] [address] [place] Bilirubin Ql (U) Negative Normal Negative [facility] Comment on above: Order Comment: Speci men Type: BLOOD SPECIMEN Ordering Facility: [facility] Address: [address] [place] [address] Performed By: #### 2 4323-8, 87762-0 #### [facility] CLIA [id number] [address] [place] [address] [place] Clarity (Unsp spec) Clear Normal [facility] Comment on above: Order Comment: Speci men Type: BLOOD SPECIMEN Ordering Facility: [facility] Address: [address] [place] [address] Performed By: #### 2 4323-8, 85948-2 #### [facility] CLIA [id number] [address] [place] [address] [place] Color (U) Yellow Normal Yellow [facility] Comment on above: Order Comment: Speci men Type: BLOOD SPECIMEN Ordering Facility: [facility] Address: [address] [place] [address] Performed By: #### 2 4323-8, 70283-4 #### [facility] CLIA [id number] [address] [place], [place] [id number] [place] Epithelial cells LM.HPF (Urine sed) [#/Area] None Seen Normal [facility] Comment on above: Order Comment: Speci men Type: BLOOD SPECIMEN Ordering Facility: [facility] Address: [address] [place] [address] Performed By: #### 2 4323-8, 30418-3 #### [facility] CLIA [id number] [address] [place] [address] [place] Glucose Test strip (U) [Mass/Vol] Trace Abnormal Negative [facility] Comment on above: Order Comment: Speci men Type: BLOOD SPECIMEN Ordering Facility: [facility] Address: [address] [place] [address] Performed By: #### 2 4323-8, 81172-4 #### [facility] CLIA [id number] [address] [place] [address] [place] Hemoglobin Ql (U) Negative Normal Negative [facility] Comment on above: Order Comment: Speci men Type: BLOOD SPECIMEN Ordering Facility: [facility] Address: [address] [place] [address] Performed By: #### 2 4323-8, 14816-1 #### [facility] CLIA [id number] [address] [place] [address] [place] Hyaline casts (Urine sed) [#/Area] 0 /[LPF] Normal 0 /LPF [facility] Comment on above: Order Comment: Speci men Type: BLOOD SPECIMEN Ordering Facility: [facility] Address: [address] [place] [address] Performed By: #### 2 4323-8, 16089-3 #### [facility] CLIA [id number] [address] [place] [address] [place] Ketones Ql (U) Negative Normal Negative [facility] Comment on above: Order Comment: Speci men Type: BLOOD SPECIMEN Ordering Facility: [facility] Address: [address] [place] [address] Performed By: #### 2 4323-8, 54629-9 #### [facility] CLIA [id number] [address] [place] [address] [place] Leukocyte esterase Test strip Ql (U) Negative Normal Negative [facility] Comment on above: Order Comment: Speci men Type: BLOOD SPECIMEN Ordering Facility: [facility] Address: [address] [place] [address] Performed By: #### 2 4323-8, 99248-5 #### [facility] CLIA [id number] [address] [place] [address] [place] Nitrite Ql (U) Negative Normal Negative [facility] Comment on above: Order Comment: Speci men Type: BLOOD SPECIMEN Ordering Facility: [facility] Address: [address] [place] [address] Performed By: #### 2 4323-8, 78631-5 #### [facility] CLIA [id number] [address] [place] [address] [place] pH (U) 7.5 [pH] Normal <8.5 [facility] Comment on above: Order Comment: Speci men Type: BLOOD SPECIMEN Ordering Facility: [facility] Address: [address] [place] [address] Performed By: #### 2 4323-8, 97851-3 #### [facility] CLIA [id number] [address] [place] [address] [place] Protein (U) [Mass/Vol] Negative Normal Negative [facility] Comment on above: Order Comment: Speci men Type: BLOOD SPECIMEN Ordering Facility: [facility] Address: [address] [place] [address] Performed By: #### 2 4323-8, 81051-6 #### [facility] CLIA [id number] [address] [place] [address] [place] RBC LM.HPF (Urine sed) [#/Area] 0-2 /HPF Normal 0-2 /HPF [facility] Comment on above: Order Comment: Speci men Type: BLOOD SPECIMEN Ordering Facility: [facility] Address: [address] [place] [address] Performed By: #### 2 4323-8, 54420-1 #### [facility] CLIA [id number] [address] [place] [address] [place] Specific gravity (U) [Rel density] 1.017 Normal 1.005-1.030 [facility] Comment on above: Order Comment: Speci men Type: BLOOD SPECIMEN Ordering Facility: [facility] Address: [address] [place] [address] Performed By: #### 2 4323-8, 15352-4 #### [facility] CLIA [id number] [address] [place] [address] [place] Urobilinogen Ql (U) 1.0 EU/dL Normal 0.2-1.0 EU/dL [facility] Comment on above: Order Comment: Speci men Type: BLOOD SPECIMEN Ordering Facility: [facility] Address: [address] [place] [address] Performed By: #### 2 4323-8, 65633-8 #### [facility] CLIA [id number] [address] [place] [address] [place] WBC LM.HPF (Urine sed) [#/Area] 0-5 /HPF Normal 0-5 /HPF [facility] Comment on above: Order Comment: Speci men Type: BLOOD SPECIMEN Ordering Facility: [facility] Address: [address] [place] [address] Performed By: #### 2 4323-8, 16871-1 #### [facility] CLIA [id number] [address] [place] [address] [place] CNTHERAPYon 05-09-2024 CNTHERAPY OT/PT/Speech Visit ( PTWS) -- LAURACHARLINE Byrd ([id number]) 1955 M Date Time Provider Department 05/09/24 7:45 AM MARIO GLEZ PTWS Date Time Provider Department Center 05/09/2024 7:45 AM [id number], COLIN PTWS Alexandru Shafer Reason for Visit: Physical Therapy [503] Primary Visit Diagnosis:Radiculopathy of lumbar region [M54.16] Allergies As of Date: 05/09/2024 Noted Allergy Reaction KIDNEY BEANS 05/23/2011 8 - GI Upset LISINOPRIL 11/30/2011 3 - Cough SUNFLOWER SEED 05/23/2011 14 - Other: See Comments Comments: Adverse taste in mouth Date Reviewed: 04/10/2024 Reviewed by: Leonarda Morris MA - Fully Assessed Prescriptions as of 05/09/2024 - metFORMIN (GLUCOPHAGE) 500 mg tablet Take 1 tablet by mouth two times a day with meals. - trospium (SANCTURA) 20 mg tablet Take 1 tablet by mouth once daily. - tamsulosin (FLOMAX) 0.4 mg Take 2 capsules by mouth daily at bedtime. - atorvastatin (LIPITOR) 20 mg tablet Take 1 tablet by mouth once daily. - amLODIPine (NORVASC) 10 mg tablet Take 1 tablet by mouth once daily. - cholecalciferol, Vitamin D3, (VITAMIN D3) 1,250 mcg (50,000 unit) cap capsule Take 1 capsule by mouth one time a week. take with food - Valsartan-hydroCHLOROthiaz silverio (DIOVAN HCT) 80-12.5 mg per tablet Take 1 tablet by mouth once daily. - gabapentin (NEURONTIN) 300 mg capsule By mouth: 300mg qam, 600mg qHS - albuterol HFA (VENTOLIN HFA) 90 mcg/actuation inhaler Inhale 2 Puffs as instructed every 4 hours as needed for wheezing/shortness of breath. Normal [facility] Yumiko 05-05-2024 WILLY Telephone (FAMPWS) -- LAURACHARLINE Delcid ([id number]) 1955 M Date Time Provider Department 05/05/24 [facility] [facility] During your visit today, we recorded the following information about you: Montana Leblanc APRN.JU 05/05/2024 11:49 AM Signed Please let the patient know that his Cologuard was negative. Repeat Cologuard in 3 years. Montana Leblanc APRN.Carolann Henry LPN 05/05/2024 1:08 PM Signed Patient notified of results, verbalizes understanding of instructions. Carolann Moore LPN Allergies As of Date: 05/05/2024 Noted Allergy Reaction KIDNEY BEANS 05/23/2011 8 - GI Upset LISINOPRIL 11/30/2011 3 - Cough SUNFLOWER SEED 05/23/2011 14 - Other: See Comments Comments: Adverse taste in mouth Date Reviewed: 04/10/2024 Reviewed by: Leonarda Morris MA - Fully Assessed Reason for Visit: Results [95] Prescriptions as of 05/05/2024 - metFORMIN (GLUCOPHAGE) 500 mg tablet Take 1 tablet by mouth two times a day with meals. - trospium (SANCTURA) 20 mg tablet Take 1 tablet by mouth once daily. - tamsulosin (FLOMAX) 0.4 mg Take 2 capsules by mouth daily at bedtime. - atorvastatin (LIPITOR) 20 mg tablet Take 1 tablet by mouth once daily. - amLODIPine (NORVASC) 10 mg tablet Take 1 tablet by mouth once daily. - cholecalciferol, Vitamin D3, (VITAMIN D3) 1,250 mcg (50,000 unit) cap capsule Take 1 capsule by mouth one time a week. take with food - Valsartan-hydroCHLOROthiaz silverio (DIOVAN HCT) 80-12.5 mg per tablet Take 1 tablet by mouth once daily. - gabapentin (NEURONTIN) 300 mg capsule By mouth: 300mg qam, 600mg qHS - albuterol HFA (VENTOLIN HFA) 90 mcg/actuation inhaler Inhale 2 Puffs as instructed every 4 hours as needed for wheezing/shortness of breath. Problem List As Of Date 05/05/2024 Noted Resolved Sciatica [M54.30] 12/17/2007 09/21/2016 Intervertebral lumbar disc disorder with myelop* Patellar tendinitis [M76.50] 06/06/2011 04/28/2015 DVT of lower limb, acute (HCC) [I82.409] 07/13/2011 03/26/2017 Popliteal cyst [M71.20] 07/21/2011 04/28/2015 HTN (hypertension) [I10] 09/04/2011 Venous insufficiency [I87.2] 09/04/2011 Pain in joint, lower leg [M25.569] 11/02/2011 04/28/2015 Lumbar degenerative disc disease [M51.369] 07/09/2012 Hyperlipidemia with target LDL less than 100 [E*05/16/2013 Pappas's neuroma [G57.60] 05/16/2013 09/21/2016 Superficial spreading malignant melanoma of ski*12/03/2014 04/10/2024 DM (diabetes mellitus), 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/28/2015 Bilateral lumbar radiculopathy [M54.16] 04/28/2015 09/21/2016 Neoplasm of uncertain behavior of skin [D48.5] 03/27/2017 Chronic pain of both shoulders [M25.511, G89.29*04/12/2021 Neural foraminal stenosis of cervical spine [M4*05/20/2021 BPH associated with nocturia [N40.1, R35.1] 03/20/2022 Encounter Status:Closed by CAROLANN MOORE on 05/05/24 Normal [facility] [id number] 04-29-2024 [id number] HNO ID: [id number] Author: MARIO GLEZ PT Service: ? Author Type: Physical Therapist Type: [id number] Filed: 04/29/2024 13:09 Note Text: [facility] Physical Therapy Plan of Care Certification Patient Name: Charline Sanchez : 1955 [facility] #: [id number] Date: 04/29/2024 To: Viktor Ferrera MD From Therapist: Mario Glez PT RE: Patient Certification/ Recertification Your review, approval and electronic signature are required in order to comply with Payor: [employer] MEDICARE / Plan: [employer] MEDICARE PPO / Product Type: PPO / regulations. The identified Physical Therapy PLAN OF CARE for the patient is as follows: M54.16 Radiculopathy of lumbar region (primary encounter diagnosis) PLAN OF CARE: Assessment: Charline Sanchez presents with chief complaint of chronic back pain and intermittent B lower extremity paresthesias that interferes with bending, lifting, standing, rising from a chair, twisting. The patient presents with impairments in ADL's, flexibility, independence in exercise, overall function, posture, range of motion, strength, symptom management, and tissue tenderness. PROMIS? (Patient-Reported Outcomes Measurement Information System) scores were reviewed and identified as a rehabilitation concern. Prognosis for therapy is Good due to: current objective clinical presentation, acuteness of condition, within-session changes.The patient will benefit from skilled therapy services to meet the goals established for this plan of care as noted below. Classification Pain Mechanism Classification: Neuropathic Low Back Pain Classification: Movement Control Goals for Episode of Care: established 04/29/24 Patient reported outcome of physical function will increase T-score by a minimum 5 points. Dickinson in home exercise program. Patient will decrease pain rating by 2 points to meet minimal clinical important difference for numeric pain rating scale. Restore pain-free lumbar ROM to WNL to allow for improved functional mobility Stand / Walk to return to regular walking program and ADLs without pain/symptoms. Patient will increase strength of trunk to 4+/5 to allow for return to prior functional status and perform ADLs. Patient Goals: Manage his pain better. Time Frame for Goals and Treatment : 06/29/24 Planned Interventions, Frequency, and Duration: Current Frequency: 1x/week Duration: 5 weeks Total Number of Visits Planned: 5 Planned Treatment Interventions: Therapeutic exercise (46325), Neuromuscular re-education (47123), Manual therapy (40807), Therapeutic activities (54165), Self-nursing home management (20014), Gait Training (60677), Body Mechanics Training, Patient/Family/Caregiver Education PLAN FOR NEXT VISIT: Review and correct HEP as needed; stretching and strengthening with flexion directional preference. Manual lumbar belt traction. Patient demonstrates good understanding of plan of care and treatment. The above goals and plan of care were discussed and agreed upon by patient/family. For further details regarding this patient refer to the Physical Therapy electronically documented visit dated 04/29/2024. Provider Attestation I have reviewed the treatment plan for Charline Sanchez, [facility]# [id number] for the period of 04/29/24 -- 06/03/24, established on 04/29/2024. Signature certifies the need for therapy services. Normal [facility] CNTHERAPYon 04-29-2024 CNTHERAPY OT/PT/Speech Visit ( PTWS) -- CHARLINE SANCHEZ ([id number]) 1955 M Date Time Provider Department 04/29/24 8:30 AM MARIO GLEZ PTWS Date Time Provider Department [place] 04/29/2024 8:30 AM [id number], COLIN PTWS Alexandru Shafer Reason for Visit: PT Eval [747] Primary Visit Diagnosis:Radiculopathy of lumbar region [M54.16] Allergies As of Date: 04/29/2024 Noted Allergy Reaction KIDNEY BEANS 05/23/2011 8 - GI Upset LISINOPRIL 11/30/2011 3 - Cough SUNFLOWER SEED 05/23/2011 14 - Other: See Comments Comments: Adverse taste in mouth Date Reviewed: 04/10/2024 Reviewed by: Leonarda Morris MA - Fully Assessed Prescriptions as of 05/14/2024 - trospium (SANCTURA) 20 mg tablet Take 1 tablet by mouth once daily. - metFORMIN (GLUCOPHAGE) 500 mg tablet Take 1 tablet by mouth two times a day with meals. - tamsulosin (FLOMAX) 0.4 mg Take 2 capsules by mouth daily at bedtime. - atorvastatin (LIPITOR) 20 mg tablet Take 1 tablet by mouth once daily. - amLODIPine (NORVASC) 10 mg tablet Take 1 tablet by mouth once daily. - cholecalciferol, Vitamin D3, (VITAMIN D3) 1,250 mcg (50,000 unit) cap capsule Take 1 capsule by mouth one time a week. take with food - Valsartan-hydroCHLOROthiaz silverio (DIOVAN HCT) 80-12.5 mg per tablet Take 1 tablet by mouth once daily. - gabapentin (NEURONTIN) 300 mg capsule By mouth: 300mg qam, 600mg qHS - albuterol HFA (VENTOLIN HFA) 90 mcg/actuation inhaler Inhale 2 Puffs as instructed every 4 hours as needed for wheezing/shortness of breath. Websphere Developer: Therapy (PT/OT/Speech/Resp) ID: [id number] 04/29/2024 9:12 AM Author: MARIO GLEZ Signed by MARIO GLEZ PT on 04/29/2024 at 9:12 AM Document text: Program_ID:[id number] Access Code: [email or web address] URL: [email or web address] Date: 04-29-2024 Prepared By: Mario Glez Program Notes Exercises - Hooklying Single Knee to Chest Stretch - 2 x daily - 7 x weekly - 3 sets - reps - Supine Double Knee to Chest - 3 x daily - 7 x weekly - 3 sets - reps - Supine Lower Trunk Rotation - 2 x daily - 7 x weekly - 2 sets - 10 reps - Seated Lumbar Flexion Stretch - 2 x daily - 7 x weekly - 3 sets - reps Normal [facility] THERAPY NTon 04-29-2024 THERAPY NT HNO ID: [id number] Author: MARIO GLEZ, PT Service: ? Author Type: Physical Therapist Type: Therapy (PT/OT/Speech/Resp) Filed: 04/29/2024 09:12 Note Text: Program_ID:[id number] Access Code: [email or web address] URL: [email or web address] Date: 04-29-2024 Prepared By: Mario Glez Program Notes Exercises - Hooklying Single Knee to Chest Stretch - 2 x daily - 7 x weekly - 3 sets - reps - Supine Double Knee to Chest - 3 x daily - 7 x weekly - 3 sets - reps - Supine Lower Trunk Rotation - 2 x daily - 7 x weekly - 2 sets - 10 reps - Seated Lumbar Flexion Stretch - 2 x daily - 7 x weekly - 3 sets - reps Normal [facility] CNOVon 04-10-2024 CNOV Office Visit (FAMPWS ) -- CHARLINE SANCHEZ ([id number]) 1955 M Date Time Provider Department 04/10/24 9:20 AM [facility] During your visit today, we recorded the following information about you: Pulse Respiration Blood pressure Weight 78/minute 18/minute 128/82 93.6 kg Viktor Ferrera MD 04/10/2024 9:50 AM Signed Chief Complaint Patient presents with: Follow Up HPI Charline Sanchez is a 68 year old male who presents here today for follow up. Pt here today for his 6 month follow up. Has been getting his in-laws home cleaned up and ready to sell. GI/Uro - Denies any stomach issues, does have occasional constipation. Occasionally uses Miralax. Agreeable to Cologuard testing. Follows with Immanuel Hightower in Urology for BPH. Taking Flomax 0.4 mg 2 pills once daily and Sanctura 20 mg daily. Feels some of his urinary symptoms are related to his back issues as well. Mild cognitive impairment: Follows with Psychologist Jesse Morales and Neuro Dr. Pace. Is taking Gabapentin 300 mg 1 pill BID. Trying to find out why he's forgetting things and did neuropsychology testing. Had MRI completed on 12/26/23. HTN: Denies checking BP at home. No symptoms of chest pains, dizziness, or SOB. Taking Norvasc 10 mg daily and Diovan 80-12.5 mg daily. DM: Is on Metformin 500 mg 1 pill BID. Denies checking BS at home. No hypoglycemic episodes. Denies any neuropathy symptoms, but does have radicular issues from his back. Lipid: Does try to watch diet and exercise as much as he can. Tries to stay busy. Does have radicular back issues. Taking Lipitor 20 mg daily. Vit D - Deficient, taking Vitamin D3 50,000 international unit(s) once weekly. Back - Hx of DDD in his lumbar area and radiculopathy in lumbar. Due to his back issues he has to be careful and watch how much he does. Has done PT twice which he felt did help him, but not in quite some time. He previously did traction, which helped him. Has previously seen General Surgery for basal cell carcinoma this was in 2020. Hx of melanoma. Notes some spots on his back that he can squeeze and get a drainage from them. Feels they are a cyst. Areas will itch occasionally, but they are not bothersome. - At this time would like to think about Flu, Pneumo and Covid. Needs to receive Shingles vaccine through Pharmacy due to Medicare Insurance. Past medical history, appointments, medications, allergies reviewed. Previous Medical History PAST MEDICAL HISTORY Diagnosis Date BPH associated with nocturia Controlled type 2 diabetes mellitus without complication, without long-term current use of insulin (HCC) 06/19/2014 06/19/14 HbA1c 8.1 DVT of lower limb, acute (HCC) 07/13/2011 Elevated prostate specific antigen (PSA) 12/10/2023 Hyperlipidemia LDL goal < 100 05/16/2013 Lumbar degenerative disc disease 07/09/2012 Pappas's neuroma 05/16/2013 Sciatica Superficial spreading malignant melanoma of skin (HCC) 12/03/2014 Previous Surgical History PAST SURGICAL HISTORY Procedure Laterality Date EXC SKIN MALIG >4CM REMAINDR BODY 04/16/2017 Squamous cell carcinoma completely excised clean margins MELANOMA OF SKIN EXCISION SYN RPT Left 2015 back MELANOMA OF SKIN EXCISION SYN RPT 04/16/2017 right posterior ear lesion [facility] TONSILLECTOMY PRIMARY/SECONDARY Tonsillectomy Family History FAMILY HISTORY Problem Relation Age of Onset Heart Father valve Arthritis Mother knees,hips,lumbar spine Diabetes Mother other (electrical injury) Brother other (unknown) Brother Patient Allergies ALLERGIES Allergen Reactions Kidney Beans GI Upset Lisinopril Cough Tyler Seed Other: See Comments Adverse taste in mouth Current Medications Current Outpatient Medications on File Prior to Visit Medication Sig trospium (SANCTURA) 20 mg tablet Take 1 tablet by mouth once daily. tamsulosin (FLOMAX) 0.4 mg Take 2 capsules by mouth daily at bedtime. atorvastatin (LIPITOR) 20 mg tablet Take 1 tablet by mouth once daily. amLODIPine (NORVASC) 10 mg tablet Take 1 tablet by mouth once daily. cholecalciferol, Vitamin D3, (VITAMIN D3) 1,250 mcg (50,000 unit) cap capsule Take 1 capsule by mouth one time a week. take with food (Patient not taking: Reported on 03/24/2024) Valsartan-hydroCHLOROthiaz silverio (DIOVAN HCT) 80-12.5 mg per tablet Take 1 tablet by mouth once daily. gabapentin (NEURONTIN) 300 mg capsule By mouth: 300mg qam, 600mg qHS (Patient taking differently: Patient takes 300 MG by mouth twice daily) albuterol HFA (VENTOLIN HFA) 90 mcg/actuation inhaler Inhale 2 Puffs as instructed every 4 hours as needed for wheezing/shortness of breath. metFORMIN (GLUCOPHAGE) 500 mg tablet Take 1 tablet by mouth two times a day with meals. ibuprofen (MOTRIN) 800 mg tablet Take 1 tablet by mouth every 8 hours as needed (FOR PAIN. TAKE WITH FOOD). (Patient not taking: (more content not included)... Normal [facility] CNOVon 04-09-2024 CNOV Office Visit (NEMOWS ) -- CHARLINE SANCHEZ ([id number]) 1955 M Date Time Provider Department 04/09/24 4:30 PM MALI MODI During your visit today, we recorded the following information about you: Pulse Respiration Blood pressure Weight 77/minute 18/minute 123/74 93.4 kg Mali Modi PA-C 04/09/2024 5:20 PM Signed [facility] Name: Charline Sanchez Age: [age] year old Gender: male Primary Care Provider: Viktor Frerera MD 04/09/2024 - General Neurology, Mali Modi PA-C ASSESSMENT ASSESSMENT/PLAN: 1. MCI (mild cognitive impairment) - ICD9: 331.83, ICD10: G31.84 (primary diagnosis) 2. Memory loss - ICD9: 780.93, ICD10: R41.3 Patient with progressive memory loss over the last few years, normal laboratory evaluation including B12 and folate. MRI of the brain with volumetric analysis was ordered and did show hippocampal volumes in the 18th percentile otherwise no significant atrophy or abnormalities intracranially. Neuropsychological testing was ordered as well and showed signs of mild cognitive impairment. Discussed these results at length with patient and family, discussed that there could be an neurodegenerative process like Alzheimer's disease or other dementia due to hippocampal atrophy. However, discussed that there is further testing that can be done for with a referral to brain health to get closer to her diagnosis. At this time, patient deferring this but would like to think about it at home. Does have history of B12 deficiency, B12 in September was at 435 and I discussed that a supplement could be beneficial if he is no longer supplementing at this time but did discuss he does not have a B12 deficiency based off this result. At this time, patient would like to see how he does with conservative therapy including increasing physical and cognitive activity and follow-up in 6 months to see how he does. Encouraged him to reach out with any new concerns or if he would like a referral to brain health at any time. Patient and family agree and understand. Mali Modi PA-C This is a 68 year old male followed for memory loss. Current medication treatment: none Indication for repeat cognitive testing: No Encounter Diagnosis ICD-10-CM 1. MCI (mild cognitive impairment) G31.84 2. Memory loss R41.3 Return in about 6 months (around 10/08/2024). Chart, labs,and relevant images reviewed. Chief Complaint:Patient presents with: Follow Up Chart Review: 12/24/[address] Pace ASSESSMENT/PLAN: 1. Memory loss - ICD9: 780.93, ICD10: R41.3 (primary diagnosis) 2. Cognitive decline - ICD9: 294.9, ICD10: R41.89 Patient with primary complaint of memory loss and cognitive decline that at this time is of uncertain etiology. Subjective symptoms > objective findings with MOCA falling within normal range. Metabolic workup completed by PCP and unremarkable. Patient denies other medical conditions that could contribute such as significant depression or sleep apnea (note PHQ is 0). He is not providing a history of suggest NPH triad. He is not reporting acute changes to suggest vascular dementia. Uncertain as to what is the cause of his mothers cognitive decline with no formal dx and thus, still need to consider a neurodegenerative process. To further evaluate will get MRI brain with volumetric evaluation to confirm no stroke or NPH and determine if a pattern of atrophy present to suggest a neurodegenerative process. Will also send for formal neurocognitive testing to better determine a cause of symptoms. At this time, given unremarkable MOCA score, and no major limitations in daily activities, would not recommend starting a medication such as Aricept or Namenda. Instead, will await findings of above testing to determine appropriate course of treatment or possible further workup. Pt agrees with plan that has been d/w pt in detail. Kenan Pace MD HPI: Last seen for memory loss on 12/24/23, onset 3+ years. MoCA 25/28. Ordered MRI brain, neuropsych testing. Hippocampal atrophy in the 18th percentile. Neuropsych testing significant for MCI. Patient with no significant change from previous. Presents today to review results including neuropsychological testing and MRI of the brain. No new concerns today. Review of Systems ACTIVE PROBLEM LIST Intervertebral lumbar disc disorder with myelopathy, lumbar region Htn (Hypertension) Venous Insufficiency Lumbar Degenerative Disc Disease Hyperlipidemia With Target Ldl Less Than 100 Superficial Spreading Malignant Melanoma of Skin (Hcc) Dm (Diabetes Mellitus), Type 2 With Neurological Complications (Hcc) Neoplasm of Uncertain Behavior of Skin Chronic Pain of Both Shoulders Neural Foraminal Stenosis of Cervical Spine Bph Associated With Nocturia PAST MEDICAL HISTORY Diagnosis Date BPH associa (more content not included)... Normal [facility] CHARLINE SANCHEZ ([id number]) 1955 M Date Time Provider Department 04/08/24 FRANCISCO HIGHTOWER During your visit today, we recorded the following information about you: Kristen Shelton LPN 04/08/2024 5:05 PM Signed ----- Message from Francisco Hightower APRN.NORMA DODD sent at 04/08/2024 4:25 PM EDT ----- Team - Please inform patient. PSA is stable and Free PSA looks good at 28%. I recommend to continue to monitor PSA level. Consider an MRI of prostate if we see changes in PSA or Free PSA. See you in May for your appt. Francisco Hightower DNP, CNP Department of Urology [facility] Kristen Shelton LPN 04/08/2024 5:07 PM Signed Called patient. Verified name and date of . Patient notified of results- verbalizes understanding. Kristen Shelton LPN Allergies As of Date: 04/08/2024 Noted Allergy Reaction KIDNEY BEANS 05/23/2011 8 - GI Upset LISINOPRIL 11/30/2011 3 - Cough SUNFLOWER SEED 05/23/2011 14 - Other: See Comments Comments: Adverse taste in mouth Date Reviewed: 03/24/2024 Reviewed by: Francisco Hightower APRN.NORMA DODD - Fully Assessed Reason for Visit: Results [95] Prescriptions as of 04/08/2024 - trospium (SANCTURA) 20 mg tablet Take 1 tablet by mouth once daily. - tamsulosin (FLOMAX) 0.4 mg Take 2 capsules by mouth daily at bedtime. - atorvastatin (LIPITOR) 20 mg tablet Take 1 tablet by mouth once daily. - amLODIPine (NORVASC) 10 mg tablet Take 1 tablet by mouth once daily. - cholecalciferol, Vitamin D3, (VITAMIN D3) 1,250 mcg (50,000 unit) cap capsule Take 1 capsule by mouth one time a week. take with food - Valsartan-hydroCHLOROthiaz silverio (DIOVAN HCT) 80-12.5 mg per tablet Take 1 tablet by mouth once daily. - gabapentin (NEURONTIN) 300 mg capsule By mouth: 300mg qam, 600mg qHS - albuterol HFA (VENTOLIN HFA) 90 mcg/actuation inhaler Inhale 2 Puffs as instructed every 4 hours as needed for wheezing/shortness of breath. - metFORMIN (GLUCOPHAGE) 500 mg tablet Take 1 tablet by mouth two times a day with meals. - ibuprofen (MOTRIN) 800 mg tablet Take 1 tablet by mouth every 8 hours as needed (FOR PAIN. TAKE WITH FOOD). - blood sugar diagnostic (FREESTYLE LITE STRIPS) test strip Test blood sugar(s) one times daily. Dx: 250.02. Insulin: No - Lancets (FREESTYLE LANCETS) lancets Test blood sugar(s) one times daily. Dx: 250.02. Insulin: No Problem List As Of Date 04/08/2024 Noted Resolved Sciatica [M54.30] 12/17/2007 09/21/2016 Intervertebral lumbar disc disorder with myelop* Patellar tendinitis [M76.50] 06/06/2011 04/28/2015 DVT of lower limb, acute (HCC) [I82.409] 07/13/2011 03/26/2017 Popliteal cyst [M71.20] 07/21/2011 04/28/2015 HTN (hypertension) [I10] 09/04/2011 Venous insufficiency [I87.2] 09/04/2011 Pain in joint, lower leg [M25.569] 11/02/2011 04/28/2015 Lumbar degenerative disc disease [M51.369] 07/09/2012 Hyperlipidemia with target LDL less than 100 [E*05/16/2013 Pappas's neuroma [G57.60] 05/16/2013 09/21/2016 Superficial spreading malignant melanoma of ski*12/03/2014 DM (diabetes mellitus), 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/28/2015 Bilateral lumbar radiculopathy [M54.16] 04/28/2015 09/21/2016 Neoplasm of uncertain behavior of skin [D48.5] 03/27/2017 Chronic pain of both shoulders [M25.511, G89.29*04/12/2021 Neural foraminal stenosis of cervical spine [M4*05/20/2021 BPH associated with nocturia [N40.1, R35.1] 03/20/2022 Encounter Status:Closed by KRISTEN SHELTON on 04/08/24 Normal [facility] 25(OH)D3 SerPl-ncon 2023 25-hydroxyvitamin D3 [Mass/Vol] 41.3 ng/mL Normal 31.0-80.0 [facility] Comment on above: Order Comment: Speci men Type: BLOOD SPECIMEN Ordering Facility: [facility] Address: [address] [place] [address] Result Comment: Clas sification of 25 [place] Vitamin D status: Deficiency/Insufficiency: < or = 30 ng/ml. Sufficiency/Optimal Levels: 31-80 ng/mL Toxicity: > 100 ng/mL. Test performed by chemiluminescent immunoassay. Performed By: #### 1 989-3 #### [facility] CLIA [id number] [address] [place] [address] [place] Comprehensive metabolic 2000 panelon 04-07-2024 Albumin [Mass/Vol] 4.2 g/dL Normal 3.9-4.9 [facility] Comment on above: Order Comment: Speci men Type: BLOOD SPECIMEN Ordering Facility: [facility] Address: [address] [place] [address] Performed By: #### 1 0886-0, 88815-6, 10441-7 #### [facility] CLIA [id number] [address] [place] [address] [place] ALP [Catalytic activity/Vol] 99 U/L Normal 38-113 [facility] Comment on above: Order Comment: Speci men Type: BLOOD SPECIMEN Ordering Facility: [facility] Address: [address] [place] [address] Performed By: #### 1 0886-0, 31230-9, 22718-1 #### [facility] CLIA [id number] [address] [place] [address] [place] ALT [Catalytic activity/Vol] 22 U/L Normal 10-54 [facility] Comment on above: Order Comment: Speci men Type: BLOOD SPECIMEN Ordering Facility: [facility] Address: [address] [place] [address] Performed By: #### 1 0886-0, 59009-8, 22358-9 #### [facility] CLIA [id number] [address] [place] [address] [place] Anion gap [Moles/Vol] 11 mmol/L Normal 8-15 [facility] Comment on above: Order Comment: Speci men Type: BLOOD SPECIMEN Ordering Facility: [facility] Address: [address] [place] [address] Performed By: #### 1 0886-0, 09152-2, 63176-4 #### [facility] CLIA [id number] [address] [place] [address] [place] AST [Catalytic activity/Vol] 18 U/L Normal 14-40 [facility] Comment on above: Order Comment: Speci men Type: BLOOD SPECIMEN Ordering Facility: [facility] Address: [address] [place] [address] Performed By: #### 1 0886-0, 92720-1, 08948-1 #### [facility] CLIA [id number] [address] [place] [address] [place] Bilirubin [Mass/Vol] 1.1 mg/dL Normal 0.2-1.3 [facility] Comment on above: Order Comment: Speci men Type: BLOOD SPECIMEN Ordering Facility: [facility] Address: [address] [place] [address] Performed By: #### 1 0886-0, 54154-4, 82187-4 #### [facility] CLIA [id number] [address] [place] [address] [place] Calcium [Mass/Vol] 9.3 mg/dL Normal 8.5-10.2 [facility] Comment on above: Order Comment: Speci men Type: BLOOD SPECIMEN Ordering Facility: [facility] Address: [address] [place] [address] Performed By: #### 1 0886-0, 69881-3, 13126-4 #### [facility] CLIA [id number] [address] [place] [address] [place] Chloride [Moles/Vol] 100 mmol/L Normal 98-107 [facility] Comment on above: Order Comment: Speci men Type: BLOOD SPECIMEN Ordering Facility: [facility] Address: [address] [place] [address] Performed By: #### 1 0886-0, 03682-3, 40702-6 #### [facility] CLIA [id number] [address] [place] [address] [place] CO2 [Moles/Vol] 30 mmol/L Normal 22-30 [facility] Comment on above: Order Comment: Speci men Type: BLOOD SPECIMEN Ordering Facility: [facility] Address: [address] [place] [address] Performed By: #### 1 0886-0, 04774-2, 45482-0 #### [facility] CLIA [id number] [address] [place] [address] [place] Creatinine [Mass/Vol] 0.96 mg/dL Normal 0.73-1.22 [facility] Comment on above: Order Comment: Speci men Type: BLOOD SPECIMEN Ordering Facility: [facility] Address: [address] [place] [address] Performed By: #### 1 0886-0, 42058-0, 09420-6 #### [facility] CLIA [id number] [address] [place] [address] [place] Creatinine and Glomerular filtration rate.predicted panel (S/P/Bld) 86 mL/min/1.73m??? Normal >=60 [facility] Comment on above: Order Comment: [place] mata Type: BLOOD SPECIMEN Ordering Facility: [facility] Address: [address] [place] [address] Result Comment: Marsha mated Glomerular Filtration Rate (eGFR) is calculated using the 2020 CKD-EPI creatinine equation. This equation utilizes serum creatinine, sex, and age as parameters. The creatinine assay has traceable calibration to isotope dilution-mass spectrometry. Refer to KDIGO guidelines for clinical interpretation. In patients with unstable renal function, e.g. those with acute kidney injury, the eGFR may not accurately reflect actual GFR. Performed By: #### 1 0886-0, 97931-8, 57066-8 #### [facility] CLIA [id number] [address] [place] [address] [place] Glucose [Mass/Vol] 130 mg/dL High 74-99 [facility] Comment on above: Order Comment: Shawnee mata Type: BLOOD SPECIMEN Ordering Facility: [facility] Address: [address] [place] [address] Result Comment: The [place] Diabetes Association (ADA) provides guidance for cutoff values for fasting glucose and random glucose. The ADA defines fasting as no caloric intake for at least 8 hours. Fasting plasma glucose results between 100 to 125 mg/dL indicate increased risk for diabetes (prediabetes). Fasting plasma glucose results greater than or equal to 126 mg/dL meet the criteria for diagnosis of diabetes. In the absence of unequivocal hyperglycemia, results should be confirmed by repeat testing. In a patient with classic symptoms of hyperglycemia or hyperglycemic crisis, random plasma glucose results greater than or equal to 200 mg/dL meet the criteria for diagnosis of diabetes. Reference: Standards of Medical Care in Diabetes 2016, [place] Diabetes Association. Diabetes Care. 2016.39(Suppl 1). Performed By: #### 1 0886-0, 26384-3, 13652-0 #### [facility] CLIA [id number] [address] [place] [address] [place] Potassium [Moles/Vol] 3.7 mmol/L Normal 3.7-5.1 [facility] Comment on above: Order Comment: Speci men Type: BLOOD SPECIMEN Ordering Facility: [facility] Address: [address] [place] [address] Performed By: #### 1 0886-0, 81712-9, 61226-1 #### [facility] CLIA [id number] [address] [place] [address] [place] Protein [Mass/Vol] 7.1 g/dL Normal 6.3-8.0 [facility] Comment on above: Order Comment: Speci men Type: BLOOD SPECIMEN Ordering Facility: [facility] Address: [address] [place] [address] Performed By: #### 1 0886-0, 06544-6, 07583-1 #### [facility] CLIA [id number] [address] [place] [address] [place] Sodium [Moles/Vol] 141 mmol/L Normal 136-144 [facility] Comment on above: Order Comment: Speci men Type: BLOOD SPECIMEN Ordering Facility: [facility] Address: [address] [place] [address] Performed By: #### 1 0886-0, 06799-0, #### [facility] CLIA [id number] [address] [place] [address] [place] Urea nitrogen [Mass/Vol] 23 mg/dL Normal 9-24 [facility] Comment on above: Order Comment: Speci men Type: BLOOD SPECIMEN Ordering Facility: [facility] Address: [address] [place] [address] Performed By: #### 1 0886-0, 76493-4, 15222-1 #### [facility] CLIA [id number] [address] [place] [address] [place] Free PSA [Mass/Vol]on 2023 Free PSA/Total PSA [Mass fraction] 28 % Normal [facility] Comment on above: Order Comment: Speci men Type: BLOOD SPECIMEN Ordering Facility: [facility] Address: [address] [place] [address] Result Comment: Tota l and free PSA test methodology used is the Electrochemiluminescence Immunoassay by [employer]. Total or free PSA values by differing methodologies cannot be interchanged. The below table lists the probability of finding prostate cancer upon needle biopsy, for men 50 years or older and total PSA concentrations from 4.0-10.0 ng/mL. Results should be interpreted within the broader clinical context. Free PSA(%) 50-59 years 60-69 years >69 years <11 49.2% 57.5% 64.5% 11-18 26.9% 33.9% 40.8% 19-25 18.3% 23.9% 29.7% >25 9.1% 12.2% 15.8% Performed By: #### 1 0886-0, 83824-6, 09679-8 #### [facility] CLIA [id number] [address] [place] [address] [place] Prostate specific Ag [Mass/Vol] 4.33 ng/mL High <2.60 [facility] Comment on above: Order Comment: Speci men Type: BLOOD SPECIMEN Ordering Facility: [facility] Address: [address] [place] [address] Result Comment: Tota l PSA test methodology used is the Electrochemiluminescence Immunoassay by [employer]. Total PSA values by differing methodologies cannot be interchanged. For an individual patient, the significance of a PSA level should be interpreted in a broad clinical context, including age, race, family history, digital rectal exam, prostate size, results of prior testing (prostate biopsy, free PSA, PCA3), and use of 5-alpha reductase inhibitors. Considering the high incidence of asymptomatic cancer in the general population that may not pose an ultimate risk to a patient, the decision to recommend urological evaluation or prostate biopsy should be individualized after consideration of all these factors. REFERENCE: Radu Pandey M.D., M.P.H., Sergio Hu M.D., Ph.D., Kenan Neff M.D., Kristen Rodriges, M.P.H., Fanny Garcia Sc.D. Effect of Verification Bias on Screening for Prostate Cancer by Measurement of Prostatic Specific Antigen. N Engl J Med 2003,349:335-42. Performed By: #### 1 0886-0, 49770-2, 03056-7 #### [facility] CLIA [id number] [address] [place] [address] [place] HbA1c (Bld)on 04-07-2024 Average glucose Estimated from glycated hemoglobin (Bld) [Mass/Vol] 157 mg/dL Normal [facility] Comment on above: Order Comment: Speci men Type: BLOOD SPECIMEN Ordering Facility: [facility] Address: [address] [place] [address] Result Comment: eAG: (Estimated average glucose) is a calculated value from HgbA1c and is service support representative of the average blood glucose level in the last 2-3 month period. Performed By: #### 2 4323-8, 83787-0 #### [facility] CLIA [id number] [address] [place] [address] [place] HbA1c (Bld) [Mass fraction] 7.1 % High 4.3-5.6 [facility] Comment on above: Order Comment: Speci men Type: BLOOD SPECIMEN Ordering Facility: [facility] Address: [address] [place] [address] Result Comment: [place] Diabetes Association guidelines indicate that patients with HgbA1c in the range 5.7-6.4% are at increased risk for development of diabetes, and intervention by lifestyle modification may be beneficial. HgbA1c greater or equal to 6.5% is considered diagnostic of diabetes. Performed By: #### 2 4323-8, 39026-0 #### [facility] CLIA [id number] [address] [place] [address] [place] Lipid 1996 panelon 4 Cholesterol [Mass/Vol] 154 mg/dL Normal <200 [facility] Comment on above: Order Comment: Speci men Type: BLOOD SPECIMEN Ordering Facility: [facility] Address: [address] [place] [address] Result Comment: <200 mg/dL, Desirable 200-239 mg/dL, Borderline high >239 mg/dL, High Performed By: #### 1 0886-0, 28854-1, 19787-9 #### [facility] CLIA [id number] [address] [place] [address] [place] Cholesterol in HDL [Mass/Vol] 41 mg/dL Normal >39 [facility] Comment on above: Order Comment: Speci men Type: BLOOD SPECIMEN Ordering Facility: [facility] Address: [address] [place] [address] Result Comment: 40-5 9 mg/dL, Acceptable >59 mg/dL, High: Negative risk factor for coronary heart disease <40 mg/dL, Low: Positive risk factor for coronary heart disease Performed By: #### 1 0886-0, 54175-5, 10211-8 #### [facility] CLIA [id number] [address] [place] [address] [place] Cholesterol in LDL [Mass/Vol] 94 mg/dL Normal <100 [facility] Comment on above: Order Comment: Speci men Type: BLOOD SPECIMEN Ordering Facility: [facility] Address: [address] [place] [address] Result Comment: <100 mg/dL, Optimal 100-129 mg/dL, Near optimal/above optimal 130-159 mg/dL, Borderline high 160-189 mg/dL, High >189 mg/dL, Very high Secondary prevention optimal LDL Cholesterol levels are recommended to be < 70 mg/dL Performed By: #### 1 0886-0, 27201-8, 49843-9 #### [facility] CLIA [id number] [facility] [place] [address] [place] Cholesterol in LDL/Cholesterol in HDL [Mass ratio] 2.29 {ratio} Normal <2.54 [facility] Comment on above: Order Comment: Speci men Type: BLOOD SPECIMEN Ordering Facility: [facility] Address: [address] [place] [address] Result Comment: Refe harperce: 1. National Cholesterol Education Program ATP III Guideline At-A-Glance Quick Desk Reference: National Heart, Lung, and Blood [place]. National Institutes of Health. 2001: NIH Publication No. 01-3305. 2. An International Atherosclerosis Society position paper: global recommendations for the management of dyslipidemia: executive summary, Atherosclerosis. 2014: 232(2):410-413. Performed By: #### 1 0886-0, 38893-7, 16539-0 #### [facility] CLIA [id number] [address] [place] [address] [place] Cholesterol in VLDL [Mass/Vol] 19 mg/dL Normal <30 [facility] Comment on above: Order Comment: [place] mata Type: BLOOD SPECIMEN Ordering Facility: [facility] Address: [address] [place] [address] Performed By: #### 1 0886-0, 72265-6, 28715-2 #### [facility] CLIA [id number] [address] [place] [address] [place] Cholesterol non HDL [Mass/Vol] 113 mg/dL Normal <130 [facility] Comment on above: Order Comment: Shawnee mata Type: BLOOD SPECIMEN Ordering Facility: [facility] Address: [address] [place] [address] Result Comment: <130 mg/dL, Optimal 130-159 mg/dL, Near optimal/above optimal 160-189 mg/dL, Borderline high 190-219 mg/dL, High >219 mg/dL, Very high Secondary prevention optimal non HDL Cholesterol levels are recommended to be <100 mg/dL Performed By: #### 1 0886-0, 15150-3, 04522-3 #### [facility] CLIA [id number] [address] [place] [address] [place] Cholesterol.total/Cho lesterol in HDL [Mass ratio] 3.76 {ratio} Normal <5.10 [facility] Comment on above: Order Comment: Shawnee mata Type: BLOOD SPECIMEN Ordering Facility: [facility] Address: [address] [place] [address] Performed By: #### 1 0886-0, 66722-6, 55632-2 #### [facility] CLIA [id number] [address] [place] [address] [place] FASTING TIME 12 hrs Normal [facility] Comment on above: Order Comment: Speci men Type: BLOOD SPECIMEN Ordering Facility: [facility] Address: [address] [place] [address] Performed By: #### 1 0886-0, 14775-2, 84503-3 #### [facility] CLIA [id number] [address] [place] [address] [place] Triglyceride [Mass/Vol] 94 mg/dL Normal <150 [facility] Comment on above: Order Comment: Speci men Type: BLOOD SPECIMEN Ordering Facility: [facility] Address: [address] [place] [address] Result Comment: <150 mg/dL, Normal 150-199 mg/dL, Borderline high 200-499 mg/dL, High >499 mg/dL, Very high Performed By: #### 1 0886-0, 98689-2, 48233-7 #### [facility] CLIA [id number] [address] [place] [address] [place] CNOVon 03-24-2024 CNOV Office Visit (JABARI ) -- CHARLINE SANCHEZ ([id number]) 1955 M Date Time Provider Department 03/24/24 10:30 AM FRANCISCO HIGHTOWER During your visit today, we recorded the following information about you: Temperature Pulse Respiration Blood pressure 97.6 degrees 68/minute 14/minute 128/80 Weight 93.4 kg Kristen Shelton LPN 03/24/2024 1:10 PM Signed Verified name and date of . CC Post Void Residual HPI: Israel flores is here now for an appointment with Joelle Singh APRN, DNP Procedure: Explained procedure to patient and verbalizes understanding. Performed a PVR. Patient urinated and instructed to empty bladder as much as possible just prior to having PVR done using bladder ultrasound scanner. Results of scan: 6 mL The patient tolerated the procedure well. Plan: Appointment with Francisco Mesa APRN.NORMA DODD 03/24/2024 1:10 PM Signed [facility] PSA/PROSTATE EVALUATION HISTORY AND PHYSICAL EXAM PATIENT: Charline Sanchez (68 year old) 12/10/2023 PCP: Viktor Ferrera MD REFERRING Provider: Michelle Martin APRN.C* ====== Consultation requested by Dr. Michelle Martin [address] [facility] [address] for an opinion regarding Elevated PSA and BPH my final recommendations will be communicated back to the requesting physician by way of shared Medical record or letter via US mail. CC: Elevated PSA and BPH HPI: The patient is 68 year old and is referred for evaluation of elevated PSA and BPH. Past med hx: HTN, DM, Chronic LBP, HLD Last A1C: 7.4 Seen in 12/10/23 for urinary symptoms and PSA. Elevated PSA: PSA elevation was noted to be 4.0 ng/mL. Prior studies include PSA of 4.07 in 2022. Was to obtain Free PSA prior to appt, but did not. No prior Bx or MRI of prostate No fhx of cancers - Renal, bladder or prostate BPH: On Flomax. C/o NTF 3-4 times. Increased Flomax to 2 caps at bedtime. Had dizziness for the first week and stopped taking 2 caps. Reduced back to one cap. Still taking on Flomax cap. PRESENTING HISTORY: Hematuria: none Obstructive voiding symptoms: weak stream. Irritative voiding symptoms: frequency, urgency, and nocturia Urinary retention: no Urinary incontinence: no Urinary tract infection: no Patient Entered Questionnaires: INTERNATIONAL PROSTATE SYMPTOM SCORE (I-PSS) PREVIOUS TOTAL IPSS SCORE: 11 QOL = 5 1. Incomplete emptying 1 2. Frequency 1 3. Intermittency 1 4. Urgency 3 5. Weak stream 1 6. Straining 0 7. Nocturia 4 TOTAL IPSS SCORE 11 QOL = 4 PROMIS Global Health 09/02/2019 PROMIS Global Health Scale Physical Health Percentile 15 Mental Health Percentile 26 Percentiles provide an indication of how the patient's score ranks in relation to the general population. Higher percentile rankings indicate better function/quality of life. 50th percentile is the average of the general population and indicates half of respondents had a worse score. MEDICATIONS: Current Outpatient Medications Medication Sig tamsulosin (FLOMAX) 0.4 mg Take 2 capsules by mouth daily at bedtime. atorvastatin (LIPITOR) 20 mg tablet Take 1 tablet by mouth once daily. amLODIPine (NORVASC) 10 mg tablet Take 1 tablet by mouth once daily. Valsartan-hydroCHLOROthiaz silverio (DIOVAN HCT) 80-12.5 mg per tablet Take 1 tablet by mouth once daily. gabapentin (NEURONTIN) 300 mg capsule By mouth: 300mg qam, 600mg qHS (Patient taking differently: Patient takes 300 MG by mouth twice daily) metFORMIN (GLUCOPHAGE) 500 mg tablet Take 1 tablet by mouth two times a day with meals. trospium (SANCTURA) 20 mg tablet Take 1 tablet by mouth once daily. cholecalciferol, Vitamin D3, (VITAMIN D3) 1,250 mcg (50,000 unit) cap capsule Take 1 capsule by mouth one time a week. take with food (Patient not taking: Reported on 03/24/2024) albuterol HFA (VENTOLIN HFA) 90 mcg/actuation inhaler Inhale 2 Puffs as instructed every 4 hours as needed for wheezing/shortness of breath. ibuprofen (MOTRIN) 800 mg tablet Take 1 tablet by mouth every 8 hours as needed (FOR PAIN. TAKE WITH FOOD). (Patient not taking: Reported on 03/24/2024) blood sugar diagnostic (FREESTYLE LITE STRIPS) test strip Test blood sugar(s) one times daily. Dx: 250.02. Insulin: No (Patient not taking: Reported on 12/24/2023) Lancets (FREESTYLE LANCETS) lancets Test blood sugar(s) one times daily. Dx: 250.02. Insulin: No (Patient not taking: Reported on 03/24/2024) No current facility-administered medications for this visit. HISTORY: PAST MEDICAL HISTORY Diagnosis Date BPH associated with nocturia Controlled type 2 diabetes mellitus without complication, without long-term current use of insulin (HCC) 06/19/2014 06/19/14 HbA1c 8.1 DVT of lower limb, acute (HCC) 07/13/2011 Elevated prostate specific antigen (PSA) 12/10/2023 Hyperlipidemia LDL goal < 100 05/16/2013 Oziel (more content not included)... Normal [facility] UA DIP, URINE (POC)on 2023 BILIRUBIN UA (POCT) Negative Negative [facility] CLARITY UA (POCT) Clear [facility] COLOR UA (POCT) Yellow [facility] GLUCOSE UA (POCT) Negative Negative mg/dL [facility] Hemoglobin Ql (U) Negative Negative [facility] KETONE UA (POCT) Negative Negative mg/dL [facility] LEUKOCYTES UA (POCT) Negative Negative [facility] NITRITE UA (POCT) Negative Negative [facility] PH UA (POCT) 6.5 4.5 - 8.0 [facility] Protein Ql (U) Negative Negative mg/dL [facility] SPECIFIC GRAVITY UA (POCT) 1.025 1.005 - 1.030 [facility] UROBILINOGEN UA (POCT) 0.2 Normal E.U./dL [facility] Location:[facility], [address] [facility], [place], [place], [id number] [place] [address] POINT OF CARE [facility] 02-06-2024 CNPN Telephone (PSYAGR) -- CHARLINE SANCHEZ ([id number]) 1955 M Date Time Provider Department 02/06/24 JESSE BAIN PSCLEMENTE During your visit today, we recorded the following information about you: Shara Weems 02/06/2024 10:13 AM Signed Mailed Neuropsych testing results per Dr. Bain. Allergies As of Date: 02/06/2024 Noted Allergy Reaction KIDNEY BEANS 05/23/2011 8 - GI Upset LISINOPRIL 11/30/2011 3 - Cough SUNFLOWER SEED 05/23/2011 14 - Other: See Comments Comments: Adverse taste in mouth Date Reviewed: 01/24/2024 Reviewed by: Jesse Bain, PhD - Fully Assessed Reason for Visit: Patient Update [1234] Prescriptions as of 02/06/2024 - tamsulosin (FLOMAX) 0.4 mg Take 2 capsules by mouth daily at bedtime. - atorvastatin (LIPITOR) 20 mg tablet Take 1 tablet by mouth once daily. - amLODIPine (NORVASC) 10 mg tablet Take 1 tablet by mouth once daily. - cholecalciferol, Vitamin D3, (VITAMIN D3) 1,250 mcg (50,000 unit) cap capsule Take 1 capsule by mouth one time a week. take with food - Valsartan-hydroCHLOROthiaz silverio (DIOVAN HCT) 80-12.5 mg per tablet Take 1 tablet by mouth once daily. - gabapentin (NEURONTIN) 300 mg capsule By mouth: 300mg qam, 600mg qHS - albuterol HFA (VENTOLIN HFA) 90 mcg/actuation inhaler Inhale 2 Puffs as instructed every 4 hours as needed for wheezing/shortness of breath. - metFORMIN (GLUCOPHAGE) 500 mg tablet Take 1 tablet by mouth two times a day with meals. - ibuprofen (MOTRIN) 800 mg tablet Take 1 tablet by mouth every 8 hours as needed (FOR PAIN. TAKE WITH FOOD). - blood sugar diagnostic (FREESTYLE LITE STRIPS) test strip Test blood sugar(s) one times daily. Dx: 250.02. Insulin: No - Lancets (FREESTYLE LANCETS) lancets Test blood sugar(s) one times daily. Dx: 250.02. Insulin: No Problem List As Of Date 02/06/2024 Noted Resolved Sciatica [M54.30] 12/17/2007 09/21/2016 Intervertebral lumbar disc disorder with myelop* Patellar tendinitis [M76.50] 06/06/2011 04/28/2015 DVT of lower limb, acute (HCC) [I82.409] 07/13/2011 03/26/2017 Popliteal cyst [M71.20] 07/21/2011 04/28/2015 HTN (hypertension) [I10] 09/04/2011 Venous insufficiency [I87.2] 09/04/2011 Pain in joint, lower leg [M25.569] 11/02/2011 04/28/2015 Lumbar degenerative disc disease [M51.36] 07/09/2012 Hyperlipidemia with target LDL less than 100 [E*05/16/2013 Pappas's neuroma [G57.60] 05/16/2013 09/21/2016 Superficial spreading malignant melanoma of ski*12/03/2014 DM (diabetes mellitus), 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/28/2015 Bilateral lumbar radiculopathy [M54.16] 04/28/2015 09/21/2016 Neoplasm of uncertain behavior of skin [D48.5] 03/27/2017 Chronic pain of both shoulders [M25.511, G89.29*04/12/2021 Neural foraminal stenosis of cervical spine [M4*05/20/2021 BPH associated with nocturia [N40.1, R35.1] 03/20/2022 Encounter Status:Closed by SHARA WEEMS on 02/06/24 [facility] CNOVon 02-05-2024 CNOV Office Visit (PSYAGR ) -- CHARLINE SANCHEZ ([id number]) 1955 M Date Time Provider Department 02/05/24 3:00 PM JESSE BAIN PSYAGR During your visit today, we recorded the following information about you: Jesse Bain, PhD 02/05/2024 3:56 PM Signed Neuropsychology Consultation Name: Charline FarhanaErik Sanchez ?Davis? FELIPA Dates of Service: 01/24/2024 (testing), 02/05/2024 (feedback) Referral: This is a 68-year-old, right-handed man referred for a neuropsychological evaluation by his neurologist, Dr. Kenan Pace, to further assess memory complaints and inform treatment planning. He was accompanied by his , Mrs. Holly Sanchez, who provided collateral history. This evaluation was conducted for treatment planning purposes only and is not valid for other purposes. Details of the patient's history are already known to the referral source and are only briefly summarized. Please see patient's medical records for more detailed information. Procedures: Available medical records were obtained and reviewed. Verbal informed consent was obtained prior to the clinical interview following a discussion of the nature of the evaluation, test procedures, risks and benefits, professional records, and confidentiality. The patient acknowledged understanding the purpose and/or need for the third alliance party () to be present and the circumstances and extent to which confidential information may be disclosed to the third alliance party. A clinical interview was then conducted with the patient and his , and the following tests were administered by a trained hydrate thickener operator: Wide Range Achievement Test-5 (WRAT-5: Word Reading); Luigi's Intellectual Screening Test (RIST); Neuropsychological Assessment Battery (NAB: Attention Module, Naming, Memory Module, Visual Discrimination, Figure Drawing Copy); Controlled Oral Word Association Test (FAS); Category Fluency (Animals); [place] Making Test, Parts A AND B; Modified [place] Card Sorting Test (M-WCST); Dot Counting Test (DCT); Sentence Repetition Test; Patient Health Questionnaire-9 (PHQ-9); Generalized Anxiety Disorder-7 item (FERNANAD-7). The testing was scored and interpreted. A follow up appointment was held to review the results, and this report was finalized. Background Information: Per medical records, the patient's history is significant for diabetes with bilateral neuropathy, hyperlipidemia, melanoma, degenerative disc disease, sciatica, Pappas's neuroma, DVT, and BPH. Briefly, he is completing workup with Dr. Pace for memory complaints. MoCA on 12/24/23 was 25/28. Neurologic exam was unremarkable. Recent TSH, B12 were normal. A1C-7.4 (10/08/23). Brain MRI on 12/26/23 showed mild chronic microvascular ischemic changes, whole brain volume at 40th percentile, and hippocampal volume at 18th percentile. There is a family history of dementia in his mother (diagnosed in her late 80s, resides in assisted living). There is no known history of stroke, seizure, or head injury with loss of consciousness. His current medications include albuterol, amlodipine, atorvastatin, gabapentin, metformin, tamsulosin, Diovan HCT, Vitamin D. Clinical Interview: Mr. Sanchez reported that cognitive changes started gradually within the last couple of years. He has always had difficulty with names but more recently he has been misplacing things and forgetting conversations. His has noticed these changes and said these issues are a little worse since onset. He is concerned about these changes due to his family history of dementia. He has not had a decline in daily functioning. He manages his own medications, appointments, and is driving without any significant difficulty. He sometimes forgets his evening medication dose, but this is not often. Per medical record, in a 2015 note he reported similarly forgetting his evening meds. 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 He said that his mood is ?usually okay? but he acknowledged some frustration related to his memory issues. When frustrated, he sometimes has thoughts of being better off , but he denied plan, method, intent, or a history of self-harm. He denied auditory or visual hallucinations. His prior psychiatric history is unremarkable. He drinks alcohol occasionally. He denied tobacco or recreational drug use, or a history of substance abuse. He reported adequate sleep. He gets up 3-4 times per night to use bathroom but is able to fall back asleep. Per , he snores but not loud and she has never witnessed any apneas. He takes a daily nap, which he attributed to his blood sugar. He reported reduced leg strength and chronic leg pain due to spinal stenosis; cu (more content not included)... Normal [facility] MR Brain WO contraston 12-25 * * *Final Report* * * DATE OF EXAM: Dec 26 2023 3:32PM [facility] 0294 - MRI BRAIN WO IVCON / PROCEDURE REASON: multiple diagnoses * * * * Physician Interpretation * * * * EXAMINATION: MRI BRAIN WO IVCON, MRI 3D POST PROCESSING CLINICAL HISTORY: Memory loss Cognitive decline TECHNIQUE: Axial FOREIGN FLAIR, FOREIGN T2, diffusion and susceptibility weighted imaging without contrast, using the ADNI dementia protocol and 3-D post-processing using the NeuroQuant software at an independent workstation with concurrent physician supervision and images were created, reviewed and archived. MQ: [id number] COMPARISON: None RESULT: QUALITATIVE: Acute Intracranial Process: None. Chronic Intracranial Process: Scattered patchy areas of increased T2 and FLAIR signal are present in the supratentorial white matter which is a nonspecific finding but likely represents mild chronic microvascular ischemia. Number of chronic lacunar infarcts: None Location of chronic lacunar infarcts: Not applicable Age related white matter changes (ARWMC) rating: White matter lesions: 1 Basal ganglia lesions: 0 Prior intracranial hemorrhage: Parenchymal microhemorrhages: 0 Other (siderosis/macrohemorrhage s (>10mm): Not Applicable Amyloid Related Imaging Abnormalities: ARIA-E: N/A ARIA-H Microhemorrhage: N/A ARIA-H Siderosis: N/A Qualitative brain and hippocampal volume loss for age: Cortex: Moderate and symmetric White Matter: Moderate and symmetric Hippocampi: Moderate and Symmetric Ventricles: Commensurate with volume loss. Brain Parenchymal Signal and Morphology: The brain parenchyma is otherwise within normal limits of signal and morphology. There is no evidence of an intracranial mass or extraaxial fluid collection. Other Significant Findings: None. Polypoid mucosal thickening in the right maxillary sinus. QUANTITATIVE: Exam Quality: Good for volumetric analysis. Segmentation: Negligible mismapping by visual inspection. Quantitative Data: Total Hippocampal Volume: Percentile for Age: 18 Asymmetry Index: -6.05 Inferior Lateral Vent Volume: Percentile for age: 96 Asymmetry Index: 46.5 Superior Lateral Vent Volume: Percentile for age: 96 Asymmetry Index: 6.83 Temporal Lobe Cortex Volume: Temporal Lobe Percentile for Age: 77 Temporal Lobe Asymmetry Index: 49 Frontal Lobe Cortex Volume: Frontal Lobe Percentile for Age: 87 Frontal Lobe Asymmetry Index: 59 Parietal Lobe Cortex Volume: Parietal Lobe Percentile for Age:88 Occipital Lobe Cortex Volume: Occipital Lobe Percentile for Age: 45 Whole Brain Volume Brain Percentile for Age: 40 Concordance between qualitative and quantitative hippocampal volume assessment: Concordant Change in brain volumes: No previous volumetric study for comparison Brain Volume Change: N/A Hippocampal Volume Change: N/A Superior Lateral Ventricle Volume Change: N/A Inferior Lateral Ventricle Volume Change: N/A Mean hippocampal volume loss among normal elderly: 0.7% per year, (-0.3 to 1.7; Clark 2008; also Ganesh 2010). DIVISION OF RADIOLOGY Provider, [facility] - 12/26/2023 * * *Final Report* * * DATE OF EXAM: Dec 26 2023 3:32PM [facility] [id number] - MRI BRAIN WO IVCON / PROCEDURE REASON: multiple diagnoses * * * * Physician Interpretation * * * * EXAMINATION: MRI BRAIN WO IVCON, MRI 3D POST PROCESSING CLINICAL HISTORY: Memory loss Cognitive decline TECHNIQUE: Axial FOREIGN FLAIR, FOREIGN T2, diffusion and susceptibility weighted imaging without contrast, using the ADNI dementia protocol and 3-D post-processing using the Uberpong software at an independent workstation with concurrent physician supervision and images were created, reviewed and archived. MQ: [id number] COMPARISON: None RESULT: QUALITATIVE: Acute Intracranial Process: None. Chronic Intracranial Process: Scattered patchy areas of increased T2 and FLAIR signal are present in the supratentorial white matter which is a nonspecific finding but likely represents mild chronic microvascular ischemia. Number of chronic lacunar infarcts: None Location of chronic lacunar infarcts: Not applicable Age related white matter changes (ARWMC) rating: White matter lesions: 1 Basal ganglia lesions: 0 Prior intracranial hemorrhage: Parenchymal microhemorrhages: 0 Other (siderosis/macrohemorrhage s (>10mm): Not Applicable Amyloid Related Imaging Abnormalities: ARIA-E: N/A ARIA-H Microhemorrhage: N/A ARIA-H Siderosis: N/A Qualitative brain and hippocampal volume loss for age: Cortex: Moderate and symmetric White Matter: Moderate and symmetric Hippocampi: Moderate and Symmetric Ventricles: Commensurate with volume loss. Brain Parenchymal Signal and Morphology: The brain parenchyma is otherwise within normal limits of signal and morphology. There is no evidence of an intracranial mass or extraaxial fluid collection. Other Significant Findings: None. Polypoid mucosal thickening in the right maxillary sinus. QUANTITATIVE: Exam Quality: Good for volumetric analysis. Segmentation: Negligible mismapping by visual inspection. Quantitative Data: Total Hippocampal Volume: Percentile for Age: 18 Asymmetry Index: -6.05 Inferior Lateral Vent Volume: Percentile for age: 96 Asymmetry Index: 46.5 Superior Lateral Vent Volume: Percentile for age: 96 Asymmetry Index: 6.83 Temporal Lobe Cortex Volume: Temporal Lobe Percentile for Age: 77 Temporal Lobe Asymmetry Index: 49 Frontal Lobe Cortex Volume: Frontal Lobe Percentile for Age: 87 Frontal Lobe Asymmetry Index: 59 Parietal Lobe Cortex Volume: Parietal Lobe Percentile for Age:88 Occipital Lobe Cortex Volume: Occipital Lobe Percentile for Age: 45 Whole Brain Volume Brain Percentile for Age: 40 Concordance between qualitative and quantitative hippocampal volume assessment: Concordant Change in brain volumes: No previous volumetric study for comparison Brain Volume Change: N/A Hippocampal Volume Change: N/A Superior Lateral Ventricle Volume Change: N/A Inferior Lateral Ventricle Volume Change: N/A Mean hippocampal volume loss among normal elderly: 0.7% per year, (-0.3 to 1.7; Clark 2008; also Ganesh 2010). IMPRESSION IMPRESSION: No acute intracranial process. Chronic changes and quantitative volumes as described. REFERENCES: White Matter Lesions: 0 = No lesions, including symmetrical, well-defined caps or bands 1 = Focal Lesions 2 = Beginning of [place] 3 = Diffuse Involvement of Entire Region Basal Ganglia Lesions: 0 = No Lesions 1 = 1 Focal Lesion (>5mm) 2 = >1 Focal Lesion (>5mm) 3 = Confluent Lesions Ganesh Ward, et al. The clinical use of structural MRI in Alzheimer disease. Nature Reviews Neurology 6;67 (2010). Clark et al. Validation of a fully automated 3D hippocampal segmentation method using subjects with Alzheimer's disease mild cognitive impairment, and elderly controls. Neuroimage 43;59 (2008). Wahlund et al. A New Rating Scale for Age-Related White Matter Changes Applicable to MRI and CT. Stroke. 32:1318 (2001). * Asymmetry index defined as difference between left and right volumes divided by mean or [(L-R/Mean) x 100] (%). Age-matched reference charts measure total hippocampal volume (% of intracranial volume). See results from the analysis charts for details. Hi Lift Operator: NANCY Transcribe Date/Time: Dec 26 2023 6:09P Dictated by : FLO MORENO MD This examination was interpreted and the report reviewed and electronically signed by: FLO MORENO MD on Dec 26 2023 6:24PM [facility] MR Unspecified body region 3 D post processingon 12-26-2023 * * *Final Report* * * DATE OF EXAM: Dec 26 2023 3:32PM M [id number] - MRI 3D POST PROCESSING / PROCEDURE REASON: multiple diagnoses * * * * Physician Interpretation * * * * EXAMINATION: MRI BRAIN WO IVCON, MRI 3D POST PROCESSING CLINICAL HISTORY: Memory loss Cognitive decline TECHNIQUE: Axial FOREIGN FLAIR, FOREIGN T2, diffusion and susceptibility weighted imaging without contrast, using the ADNI dementia protocol and 3-D post-processing using the NeuroQuant software at an independent workstation with concurrent physician supervision and images were created, reviewed and archived. MQ: [id number]_1 COMPARISON: None RESULT: QUALITATIVE: Acute Intracranial Process: None. Chronic Intracranial Process: Scattered patchy areas of increased T2 and FLAIR signal are present in the supratentorial white matter which is a nonspecific finding but likely represents mild chronic microvascular ischemia. Number of chronic lacunar infarcts: None Location of chronic lacunar infarcts: Not applicable Age related white matter changes (ARWMC) rating: White matter lesions: 1 Basal ganglia lesions: 0 Prior intracranial hemorrhage: Parenchymal microhemorrhages: 0 Other (siderosis/macrohemorrhage s (>10mm): Not Applicable Amyloid Related Imaging Abnormalities: ARIA-E: N/A ARIA-H Microhemorrhage: N/A ARIA-H Siderosis: N/A Qualitative brain and hippocampal volume loss for age: Cortex: Moderate and symmetric White Matter: Moderate and symmetric Hippocampi: Moderate and Symmetric Ventricles: Commensurate with volume loss. Brain Parenchymal Signal and Morphology: The brain parenchyma is otherwise within normal limits of signal and morphology. There is no evidence of an intracranial mass or extraaxial fluid collection. Other Significant Findings: None. Polypoid mucosal thickening in the right maxillary sinus. QUANTITATIVE: Exam Quality: Good for volumetric analysis. Segmentation: Negligible mismapping by visual inspection. Quantitative Data: Total Hippocampal Volume: Percentile for Age: 18 Asymmetry Index: -6.05 Inferior Lateral Vent Volume: Percentile for age: 96 Asymmetry Index: 46.5 Superior Lateral Vent Volume: Percentile for age: 96 Asymmetry Index: 6.83 Temporal Lobe Cortex Volume: Temporal Lobe Percentile for Age: 77 Temporal Lobe Asymmetry Index: 49 Frontal Lobe Cortex Volume: Frontal Lobe Percentile for Age: 87 Frontal Lobe Asymmetry Index: 59 Parietal Lobe Cortex Volume: Parietal Lobe Percentile for Age:88 Occipital Lobe Cortex Volume: Occipital Lobe Percentile for Age: 45 Whole Brain Volume Brain Percentile for Age: 40 Concordance between qualitative and quantitative hippocampal volume assessment: Concordant Change in brain volumes: No previous volumetric study for comparison Brain Volume Change: N/A Hippocampal Volume Change: N/A Superior Lateral Ventricle Volume Change: N/A Inferior Lateral Ventricle Volume Change: N/A Mean hippocampal volume loss among normal elderly: 0.7% per year, (-0.3 to 1.7; Clark 2008; also Ganesh 2010). DIVISION OF RADIOLOGY Provider, Rachel Pimentel - 12/26/2023 * * *Final Report* * * DATE OF EXAM: Dec 26 2023 3:32PM [facility] 0280 - MRI 3D POST PROCESSING / PROCEDURE REASON: multiple diagnoses * * * * Physician Interpretation * * * * EXAMINATION: MRI BRAIN WO IVCON, MRI 3D POST PROCESSING CLINICAL HISTORY: Memory loss Cognitive decline TECHNIQUE: Axial FOREIGN FLAIR, FOREIGN T2, diffusion and susceptibility weighted imaging without contrast, using the ADNI dementia protocol and 3-D post-processing using the Uberp[employer] software at an independent workstation with concurrent physician supervision and images were created, reviewed and archived. MQ: [id number] COMPARISON: None RESULT: QUALITATIVE: Acute Intracranial Process: None. Chronic Intracranial Process: Scattered patchy areas of increased T2 and FLAIR signal are present in the supratentorial white matter which is a nonspecific finding but likely represents mild chronic microvascular ischemia. Number of chronic lacunar infarcts: None Location of chronic lacunar infarcts: Not applicable Age related white matter changes (ARWMC) rating: White matter lesions: 1 Basal ganglia lesions: 0 Prior intracranial hemorrhage: Parenchymal microhemorrhages: 0 Other (siderosis/macrohemorrhage s (>10mm): Not Applicable Amyloid Related Imaging Abnormalities: ARIA-E: N/A ARIA-H Microhemorrhage: N/A ARIA-H Siderosis: N/A Qualitative brain and hippocampal volume loss for age: Cortex: Moderate and symmetric White Matter: Moderate and symmetric Hippocampi: Moderate and Symmetric Ventricles: Commensurate with volume loss. Brain Parenchymal Signal and Morphology: The brain parenchyma is otherwise within normal limits of signal and morphology. There is no evidence of an intracranial mass or extraaxial fluid collection. Other Significant Findings: None. Polypoid mucosal thickening in the right maxillary sinus. QUANTITATIVE: Exam Quality: Good for volumetric analysis. Segmentation: Negligible mismapping by visual inspection. Quantitative Data: Total Hippocampal Volume: Percentile for Age: 18 Asymmetry Index: -6.05 Inferior Lateral Vent Volume: Percentile for age: 96 Asymmetry Index: 46.5 Superior Lateral Vent Volume: Percentile for age: 96 Asymmetry Index: 6.83 Temporal Lobe Cortex Volume: Temporal Lobe Percentile for Age: 77 Temporal Lobe Asymmetry Index: 49 Frontal Lobe Cortex Volume: Frontal Lobe Percentile for Age: 87 Frontal Lobe Asymmetry Index: 59 Parietal Lobe Cortex Volume: Parietal Lobe Percentile for Age:88 Occipital Lobe Cortex Volume: Occipital Lobe Percentile for Age: 45 Whole Brain Volume Brain Percentile for Age: 40 Concordance between qualitative and quantitative hippocampal volume assessment: Concordant Change in brain volumes: No previous volumetric study for comparison Brain Volume Change: N/A Hippocampal Volume Change: N/A Superior Lateral Ventricle Volume Change: N/A Inferior Lateral Ventricle Volume Change: N/A Mean hippocampal volume loss among normal elderly: 0.7% per year, (-0.3 to 1.7; Clark 2008; also Ganesh 2010). IMPRESSION IMPRESSION: No acute intracranial process. Chronic changes and quantitative volumes as described. REFERENCES: White Matter Lesions: 0 = No lesions, including symmetrical, well-defined caps or bands 1 = Focal Lesions 2 = Beginning of [place] 3 = Diffuse Involvement of Entire Region Basal Ganglia Lesions: 0 = No Lesions 1 = 1 Focal Lesion (>5mm) 2 = >1 Focal Lesion (>5mm) 3 = Confluent Lesions Ganesh Ward, et al. The clinical use of structural MRI in Alzheimer disease. Nature Reviews Neurology 6;67 (2010). Clark et al. Validation of a fully automated 3D hippocampal segmentation method using subjects with Alzheimer's disease mild cognitive impairment, and elderly controls. Neuroimage 43;59 (2008). Sara et al. A New Rating Scale for Age-Related White Matter Changes Applicable to MRI and CT. Stroke. 32:1318 (2001). * Asymmetry index defined as difference between left and right volumes divided by mean or [(L-R/Mean) x 100] (%). Age-matched reference charts measure total hippocampal volume (% of intracranial volume). See results from the analysis charts for details. Hi Lift Operator: PSCB Transcribe Date/Time: Dec 26 2023 6:09P Dictated by : FLO MORENO MD This examination was interpreted and the report reviewed and electronically signed by: FLO MORENO MD on Dec 26 2023 6:24PM [facility] Panel Informationon 12-25 IMPRESSION: No acute intracranial process. Chronic changes and quantitative volumes as described. REFERENCES: White Matter Lesions: 0 = No lesions, including symmetrical, well-defined caps or bands 1 = Focal Lesions 2 = Beginning of [place] 3 = Diffuse Involvement of Entire Region Basal Ganglia Lesions: 0 = No Lesions 1 = 1 Focal Lesion (>5mm) 2 = >1 Focal Lesion (>5mm) 3 = Confluent Lesions Ganesh Ward et al. The clinical use of structural MRI in Alzheimer disease. Nature Reviews Neurology 6;67 (2010). Clark et al. Validation of a fully automated 3D hippocampal segmentation method using subjects with Alzheimer's disease mild cognitive impairment, and elderly controls. Neuroimage 43;59 (2008). Sara et al. A New Rating Scale for Age-Related White Matter Changes Applicable to MRI and CT. Stroke. 32:1318 (2001). * Asymmetry index defined as difference between left and right volumes divided by mean or [(L-R/Mean) x 100] (%). Age-matched reference charts measure total hippocampal volume (% of intracranial volume). See results from the analysis charts for details. Hi Lift Operator: [facility] Transcribe Date/Time: Dec 26 2023 6:09P Dictated by : FLO MORENO MD This examination was interpreted and the report reviewed and electronically signed by: FLO MORENO MD on Dec 26 2023 6:24PM [facility] DIV[facility] RAD[facility]OLOG[facility] Radiology Study observation (narrative) [facility] No Panel InformationOrdered By: Ccf Provider on 12-26-2023 [facility] CBC panel Auto (Bld)on 10-09 Erythrocyte distribution width (RBC) [Ratio] 12.8 % 11.5 - 15.0 % [facility] Hematocrit (Bld) [Volume fraction] 48.8 % 39.0 - 51.0 % [facility] Hemoglobin (Bld) [Mass/Vol] 16.6 g/dL 13.0 - 17.0 g/dL [facility] MCH (RBC) [Entitic mass] 31.5 pg 26.0 - 34.0 pg [facility] MCHC (RBC) [Mass/Vol] 34.0 g/dL 30.5 - 36.0 g/dL [facility] MCV (RBC) [Entitic vol] 92.6 fL 80.0 - 100.0 fL [facility] Nucleated RBC (Bld) [#/Vol] <0.01 k/uL [facility] Platelet mean volume (Bld) [Entitic vol] 10.6 fL 9.0 - 12.7 fL [facility] Platelets (Bld) [#/Vol] 241 10*3/uL 150 - 400 k/uL [facility] RBC (Bld) [#/Vol] 5.27 10*6/uL 4.20 - 6.0 0 m/uL [facility] WBC (Bld) [#/Vol] 7.48 10*3/uL 3.70 - 11.00 k/uL [facility] FOLATE, SERUMon 10-10-2023 Folate [Mass/Vol] 13.7 ng/mL >4.7 ng/mL [facility] T4 FREE/FREE THYROXINEon Free T4 [Mass/Vol] 1.1 ng/dL 0.9 - 1.7 ng/dL [facility] THYROID STIMULATING HORMONEo n 10-10-2023 TSH Qn 1.820 m[IU]/L 0.270 - 4.200 mIU/L [facility] VITAMIN B12on 10-10-2023 Cobalamin (Vitamin B12) [Mass/Vol] 458 pg/mL 232 - 1,245 pg/mL [facility] VITAMIN D 25 HYDROXYon 10-09 25-hydroxyvitamin D3 [Mass/Vol] 18.9 ng/mL Low 31.0 - 80.0 ng/mL [facility] Inital Evaluation (1) - PTon 08-03-2021 Inital Evaluation (1) - PT [facility] Physical Therapy [facility] [address] [place] [address] [address] [place] [address] / REHABILITATION SERVICES INITIAL EVALUATION MR#: [id number] Acct: [id number] Name: CHARLINE SANCHEZ Rep #: [id number] : 1955 66 From: Stanley Romo PT, Cert. T, OCS Referring Dr.: Dr. Al Hutton MD Status: REG R Insurance: [employer] [facility] SEE NOTE SELF PAY INSURANCE Patient's Visit Information CHARLINE SANCHEZ is a 66 year old M referred to Physical Therapy by Dr. Al Hutton MD with a diagnosis of CERVICAL DISC DEGENERATION,RADICULOPATHY CERVICAL. Date of Evaluation: 08/03/21 Physical Therapist: Stanley Androsik, PT, Cert MDT, OCS - Visit Plan Frequency: 2x /Week Duration: 2-4 Weeks Plan: PT INTERVTION ICXT 18-24# X15 ,POSTURE EX''s AND HOME CERVICAL TRACTION UNIT - Subjective This 66 y/o male presents to physical therapy with physical therapy with cervical radiculopathy. Patient feel Mar 2021 fell forward on hands and face at a gas station. Patient went to [facility] urgent care x-rays where -. Seen family DR recommended pain management . Patient had MRI showed bulging disc /osteophyte. Patient plans epidural injections . Patient has had prior PT for shoulders strengthening/RTC which has helped. Currently ,patient has paresthesia/tingling ,pin/needles in fingers with occasional burning at night . These symptoms are more constant. Patient aggravating factors sleeping. Patient also c/o weakness in hand. Alleviating flexion ,MEDS. MEDS: gabapentin. Symptoms affects ADLS' and function. Denies PEREZ/dizziness/nausea. Patient goals to reduce these symptoms and strength. VOCATION: part-time. SOCAIL: - Pain Right Hand Pain Intensity (Out of 10): 5 Pain Intensity Range: 10 Comment: fingers - Objective POSTURE: mild forward posture rounded shoulders. NEURO: c/o paresthesia/tingling ,burning ,pin needles fingers ,reflexes 1/3 C5-6-7. PALAPTION: tender OA /occiput/UT. CERVICAL ROM: flexion min loss ,extension mod loss, lateral flexion/rotation mod loss. 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 MMT: 4/5 except shoulders 4-/5 - Special Tests C/S Radiculapathy - Left Upper limb tension test: Negative C/S Radiculapathy - Right Upper limb tension test: Negative C/S Radiculapathy - Left Spurlings: Negative C/S Radiculapathy - Right Spurlings: Negative C/S Radiculapathy - Left Cervical distraction: Negative C/S Radiculapathy - Right Cervical distraction: Negative C/S Radiculapathy - Left Relief test: Negative C/S Radiculapathy - Right Relief test: Negative C/S Radiculapathy - Valsalva: Negative Sharp Ced: Negative Vertebral Artery Test: Negative Alar Ligament Test: Negative - Balance/Special Test Scores Oswestry Neck Score: 17 - Goals Goal 1:: Patient to demonstrate 50% improvement with decrease symptoms in fingers to improve function Goal Time Frame: 2-4 Weeks Goal 2:: Patient to benefit from home traction unit Goal Time Frame: 2-4 Weeks Goal 3:: Patient improve posture for ADLS 80% Goal Time Frame: 2-4 Weeks Goal 4:: Patient to improve neck oswestry by 5 points to improve function with decrease symptoms Goal Time Frame: 2-4 Weeks - Rehabilitation Potential Physical Therapy Diagnosis: This patient has cervical radiculopathy in with numbness, tingling ,pin/needles/burning in fingers with weakness in right hand from falling on arms and face thus benefit from skilled PT Rehabilitation Potential: Good - Anticipated Interventions Patient/Client Instruction: Educate patient on: Condition, Plan of Care For the Purpose of:: To decrease pain, To increase ROM, To improve muscle performance and motor function, To improve ability to perform ADL's, To increase tolerance to activity/condition/positio n, To improve health of tissue, To decrease soft tissue restriction, To increase flexibility/ROM Therapeutic Exercise to Include: Strength training, Postural training, Flexibilty training, Active ROM For the Purpose of:: To decrease pain, To increase ROM, To improve muscle performance and motor function, To increase tolerance to activity/condition/positio n, To improve ability of physical actions for home/community/work/leisur e, To decrease soft tissue restriction, To increase flexibility/ROM Thank you for the opportunity to evaluate your patient. For Medicare and Medicare HMO plans, please review the plan of care and approve it. It will need to be FAXED BACK to us at [phone] for Medicare purposes. For Medicare only, by signing this I certify the plan of care. Please let me know if there are questions or concerns regarding this plan of care. Physician Signature: Date: 08/08/21 1507 CC: Dr. Al Hutton MD; Dr. Viktor Ferrera MD (more content not included)... Normal [facility] Shoulder min 2 Viewson 07-07 Shoulder min [address] [facility] [address] [place] [address] Shoulder min 2 Views MR#: [id number] Acct: [id number] Name: CHARLINE SANCHEZ Rep #: [id number] : 1955 M 66 From: Elton French MD PCP: Dr. Viktor Ferrera MD Status: REG CLI Study: Shoulder min 2 Views Date of Exam: 07/07/21 Exam# [id number] Ordering Dr: Al Hutton MD STUDY: X-RAY - RIGHT SHOULDER REASON FOR EXAM: Male, 66 years old. Right shoulder pain. TECHNIQUE: 4 view(s) of the shoulder. COMPARISON: None. FINDINGS: Osteopenia. Mild arthrosis of the glenohumeral joint. Small subacromial spur. Mild arthrosis of the AC joint. The soft tissue structures are unremarkable. Normal visualized pulmonary apex. RAD/Shoulder min 2 Views IMPRESSION: Osteopenia with osteoarthrosis of the glenohumeral and acromioclavicular joints. Small subacromial spur. No acute abnormality or erosive changes. Electronically Signed: Elton French MD at 12:33 EST , Service support , CC: Dr. Al Hutton MD; Dr. Viktor Ferrera MD Hi Lift Operator: Signed Normal [facility] Shoulder min [address] [facility] [address] [place] [address] Shoulder min 2 Views MR#: [id number] Acct: [id number] Name: CHARLINE SANCHEZ Rep #: [id number] : 1955 M 66 From: Elton French MD PCP: Dr. Viktor Ferrera MD Status: REG CLI Study: Shoulder min 2 Views Date of Exam: 07/07/21 Exam# [id number] Ordering Dr: Al Hutton MD STUDY: X-RAY - LEFT SHOULDER REASON FOR EXAM: Male, 66 years old. Shoulder pain. TECHNIQUE: 4 view(s) of the shoulder. COMPARISON: None. FINDINGS: Osteopenia. Mild arthrosis of the glenohumeral joint. Small subacromial spur. Mild arthrosis of the AC joint. The soft tissue structures are unremarkable. Normal visualized pulmonary apex. RAD/Shoulder min 2 Views IMPRESSION: Osteopenia with mild arthrosis of the glenohumeral and acromioclavicular joints. Small subacromial spur. No acute abnormality or erosive changes. Electronically Signed: Elton French MD at 12:33 EST , Service support , CC: Dr. Al Hutton MD; Dr. Vkitor Ferrera MD Hi Lift Operator: Signed Normal [facility] No Panel Informationon 04-04 Radiology Study observation (narrative) [facility] XR Shoulder - left 3 Viewson 04-04-2021 IMPRESSION: 1. No acute bony process. 2. Mild degenerative change of the AC joint with marginal spurring. Hi Lift Operator: PSCB Transcribe Date/Time: Apr 04 2021 5:41P Dictated by : JEANNE VALENZUELA MD This examination was interpreted and the report reviewed and electronically signed by: JEANNE VALENZUELA MD on Apr 04 2021 5:42PM [facility] DIVISION OF RADIOLOGY * * *Final Report* * * DATE OF EXAM: Apr 04 2021 5:29PM WOX 5252 - XR SHLDR >/=3V AP/MARIA TERESA AP/OTHR LT / PROCEDURE REASON: multiple diagnoses * * * * Physician Interpretation * * * * EXAMINATION: XR SHLDR >/=3V AP/MARIA TERESA AP/OTHR LT HISTORY: Chronic bilateral anterior shoulder pain that has increased following a fall a couple months ago. TECHNIQUE: XR SHLDR >/=3V AP/MARIA TERESA AP/OTHR LT Laterality: LEFT Number of different views (projections): 3 M: XB_1 COMPARISON: There are no prior relevant examinations available for comparison within the [facility] Imaging Archives. RESULT: 3 views of the left shoulder show no acute osseous, articular or soft tissue abnormality. There is mild degenerative change of the left AC joint with periarticular osteophytosis. The acromiohumeral distance is preserved. Glenohumeral joint is preserved. The visualized lung is clear. DIVISION OF RADIOLOGY Provider, [facility] - 04/04/2021 * * *Final Report* * * DATE OF EXAM: Apr 04 2021 5:29PM WOX 5252 - XR SHLDR >/=3V AP/MARIA TERESA AP/OTHR LT / PROCEDURE REASON: multiple diagnoses * * * * Physician Interpretation * * * * EXAMINATION: XR SHLDR >/=3V AP/MARIA TERESA AP/OTHR LT HISTORY: Chronic bilateral anterior shoulder pain that has increased following a fall a couple months ago. TECHNIQUE: XR SHLDR >/=3V AP/MARIA TERESA AP/OTHR LT Laterality: LEFT Number of different views (projections): 3 M: XB_1 COMPARISON: There are no prior relevant examinations available for comparison within the [facility] Imaging Archives. RESULT: 3 views of the left shoulder show no acute osseous, articular or soft tissue abnormality. There is mild degenerative change of the left AC joint with periarticular osteophytosis. The acromiohumeral distance is preserved. Glenohumeral joint is preserved. The visualized lung is clear. IMPRESSION IMPRESSION: 1. No acute bony process. 2. Mild degenerative change of the AC joint with marginal spurring. Hi Lift Operator: NANCY Transcribe Date/Time: Apr 04 2021 5:41P Dictated by : JEANNE VALENZUELA MD This examination was interpreted and the report reviewed and electronically signed by: JEANNE VALENZUELA MD on Apr 04 2021 5:42PM EST [facility] XR Shoulder - right 3 Viewso n 04-04-2021 IMPRESSION: 1. No acute bony process. 2. Mild degenerative change of the AC joint. Possible calcific tendinitis. Hi Lift Operator: NANCY Transcribe Date/Time: Apr 04 2021 5:38P Dictated by : JEANNE VALENZUELA MD This examination was interpreted and the report reviewed and electronically signed by: JEANNE VALENZUELA MD on Apr 04 2021 5:40PM EST DIVISION OF RADIOLOGY * * *Final Report* * * DATE OF EXAM: Apr 04 2021 5:29PM WOX 5253 - XR SHLDR >/=3V AP/MARIA TERESA AP/OTHR RT / PROCEDURE REASON: multiple diagnoses * * * * Physician Interpretation * * * * EXAMINATION: XR SHLDR >/=3V AP/MARIA TERESA AP/OTHR RT HISTORY: Chronic bilateral anterior shoulder pain that has increased following a fall a couple months ago. Chronic pain of both shoulders. TECHNIQUE: XR SHLDR >/=3V AP/MARIA TERESA AP/OTHR RT Laterality: RIGHT Number of different views (projections): 3 M: XB_1 COMPARISON: There are no prior relevant examinations available for comparison within the [facility] Imaging Archives. RESULT: 3 views of the right shoulder show no acute osseous, articular or soft tissue abnormality. There is degenerative change of the right AC joint with periarticular osteophytosis. There are bony reactive changes of the greater tuberosity with some marginal calcification which can be seen with calcific tendinitis. There is preservation of the acromiohumeral distance. Glenohumeral joint is mildly narrowed centrally but otherwise intact. The visualized lung is clear. DIVISION OF RADIOLOGY Provider, Rachel Pimentel - 04/04/2021 * * *Final Report* * * DATE OF EXAM: Apr 04 2021 5:29PM WOX 5253 - XR SHLDR >/=3V AP/MARIA TERESA AP/OTHR RT / PROCEDURE REASON: multiple diagnoses * * * * Physician Interpretation * * * * EXAMINATION: XR SHLDR >/=3V AP/MARIA TERESA AP/OTHR RT HISTORY: Chronic bilateral anterior shoulder pain that has increased following a fall a couple months ago. Chronic pain of both shoulders. TECHNIQUE: XR SHLDR >/=3V AP/MARIA TERESA AP/OTHR RT Laterality: RIGHT Number of different views (projections): 3 M: XB_1 COMPARISON: There are no prior relevant examinations available for comparison within the [facility] Imaging Archives. RESULT: 3 views of the right shoulder show no acute osseous, articular or soft tissue abnormality. There is degenerative change of the right AC joint with periarticular osteophytosis. There are bony reactive changes of the greater tuberosity with some marginal calcification which can be seen with calcific tendinitis. There is preservation of the acromiohumeral distance. Glenohumeral joint is mildly narrowed centrally but otherwise intact. The visualized lung is clear. IMPRESSION IMPRESSION: 1. No acute bony process. 2. Mild degenerative change of the AC joint. Possible calcific tendinitis. Hi Lift Operator: NANCY Transcribe Date/Time: Apr 04 2021 5:38P Dictated by : JEANNE VALENZUELA MD This examination was interpreted and the report reviewed and electronically signed by: JEANNE VALENZUELA MD on Apr 04 2021 5:40PM EST [facility] XR Shoulder - right 3 ViewsO rdered By: Rachel Provider on 04-04-2021 [facility] CR Elbow 3+ Views Righton CR Elbow 3+ Views Right Patient Name: CHARLINE SANCHEZ Diagnostic Radiology ACCESSION EXAM DATE/TIME PROCEDURE ORDERING PROVIDER [id number] 03/19/2021 20:29 EDT CR Elbow 3+ Views Right MD ROYAL, KARY CPT code 87812 Reason For Exam (CR Elbow 3+ Views Right) r elbow pain Report RIGHT ELBOW 3 VIEWS CLINICAL INDICATION: r elbow pain TECHNIQUE: 3 views of the right elbow. COMPARISON: None. FINDINGS: No acute fracture or dislocation. Joint spaces maintained. No abnormal fat-pad sign. Soft tissues grossly unremarkable. IMPRESSION: 1. No acute osseous abnormality. Report Dictated on Workstation: [id number] [email or web address] Final Dictated: 03/19/2021 8:34 pm Dictating Physician: MD BALES WENDELL Signed Date and Time: 03/19/2021 8:34 pm Signed by: MD BALES WENDELL Transcribed Date and Time: 03/19/2021 8:34 Normal [facility] CR Spine Cervical 4+ Viewson 03-19-2021 CR Spine Cervical 4+ Views Patient Name: CHARLINE SANCHEZ Diagnostic Radiology ACCESSION EXAM DATE/TIME PROCEDURE ORDERING PROVIDER [id number] 03/19/2021 20:27 EDT CR Spine Cervical 4+ MD ROAYL, KARY [place] CPT code 76478 Reason For Exam (CR Spine Cervical 4+ Views) fall, decreased rom of neck Report CERVICAL SPINE: CLINICAL INDICATION: Fall injury with pain TECHNIQUE: AP, lateral, bilateral oblique and open mouth COMPARISON: None FINDINGS: Neck are motion There is no evidence for fracture or malalignment of the cervical vertebrae. Spurring is noted about the anterior aspect the endplates from C3 through C6. There is no significant disc space narrowing. There is no bony foraminal narrowing. The retropharyngeal and retrotracheal soft tissues are unremarkable. Calcification in the region of the carotid bifurcations is noted. IMPRESSION: Minor cervical spondylosis with anterior spurring. No fracture or subluxation. Report Dictated on Final Dictated: 03/19/2021 8:38 pm Dictating Physician: MD MARISCAL JEFFREY Signed Date and Time: 03/19/2021 8:39 pm Signed by: MD MARISCAL JEFFREY Transcribed Date and Time: 03/19/2021 8:38 Normal [facility] Lac RepairOrdered By: Kary Aguilera on 03-19-2021 Kary Aguilera MD 03/02 9:40 PM Lac Repair Date/Time: 03/19/2021 9:15 PM Performed by: Kary Aguilera MD Authorized by: Kary Aguilera MD Consent: Consent obtained: Verbal Consent given by: Patient Risks discussed: Infection, pain, poor cosmetic result and need for additional repair Alternatives discussed: No treatment Laceration details: Location: Face Face location: Nose Length (cm): 1.5 Laceration depth: dermis. Repair type: Repair type: Simple Pre-procedure details: Preparation: Patient was prepped and draped in usual sterile fashion Exploration: Hemostasis achieved with: Direct pressure Wound exploration: wound explored through full range of motion Wound extent: no fascia violation noted and no foreign bodies/material noted Treatment: Area cleansed with: Saline Amount of cleaning: Standard Irrigation solution: Sterile saline Irrigation method: Pressure wash Skin repair: Repair method: Tissue adhesive and Steri-Strips Approximation: Approximation: Close Post-procedure details: Patient tolerance of procedure: Tolerated well, no immediate complications [facility] Work Phone: [facility] Work Phone: XR CERVICAL SPINE (4-5 VIEWS )Ordered By: Kary Aguilera on 03-19-2021 Patient Name: CHARLINE SANCHEZ Diagnostic Radiology ACCESSION EXAM DATE/TIME PROCEDURE ORDERING PROVIDER [id number] 03/19/2021 20:27 EDT CR Spine Cervical 4+ MD ROYAL, KARY Views CPT code 19403 Reason For Exam (CR Spine Cervical 4+ Views) fall, decreased rom of neck Report CERVICAL SPINE: CLINICAL INDICATION: Fall injury with pain TECHNIQUE: AP, lateral, bilateral oblique and open mouth COMPARISON: None FINDINGS: Neck are motion There is no evidence for fracture or malalignment of the cervical vertebrae. Spurring is noted about the anterior aspect the endplates from C3 through C6. There is no significant disc space narrowing. There is no bony foraminal narrowing. The retropharyngeal and retrotracheal soft tissues are unremarkable. Calcification in the region of the carotid bifurcations is noted. IMPRESSION: Minor cervical spondylosis with anterior spurring. No fracture or subluxation. Report Dictated on --- Final --- Dictated: 03/19/2021 8:38 pm Dictating Physician: MD MARISCAL JEFFREY Signed Date and Time: 03/19/2021 8:39 pm Signed by: MD MARISCAL JEFFREY Transcribed Date and Time: 03/19/2021 8:38 [facility] Work Phone: [facility], [facility] Incoming Radiology Results From [facility] - 03/19/2021 8:40 PM EDT Patient Name: CHARLINE SANCHEZ Diagnostic Radiology ACCESSION EXAM DATE/TIME PROCEDURE ORDERING PROVIDER [id number] 03/19/2021 20:27 EDT CR Spine Cervical 4+ MD AGUILERA NISHIT Views CPT code 72080 Reason For Exam (CR Spine Cervical 4+ Views) fall, decreased rom of neck Report CERVICAL SPINE: CLINICAL INDICATION: Fall injury with pain TECHNIQUE: AP, lateral, bilateral oblique and open mouth COMPARISON: None FINDINGS: Neck are motion There is no evidence for fracture or malalignment of the cervical vertebrae. Spurring is noted about the anterior aspect the endplates from C3 through C6. There is no significant disc space narrowing. There is no bony foraminal narrowing. The retropharyngeal and retrotracheal soft tissues are unremarkable. Calcification in the region of the carotid bifurcations is noted. IMPRESSION: Minor cervical spondylosis with anterior spurring. No fracture or subluxation. Report Dictated on --- Final --- Dictated: 03/19/2021 8:38 pm Dictating Physician: MD MARISCAL JEFFREY Signed Date and Time: 03/19/2021 8:39 pm Signed by: MD MARISCAL JEFFREY Transcribed Date and Time: 03/19/2021 8:38 [facility] Work Phone: [facility] Work Phone: XR ELBOW RIGHT (MIN 3 VIEWS) Ordered By: Kary Aguilera on 03-19-2021 Patient Name: CHARLINE SANCHEZ Diagnostic Radiology ACCESSION EXAM DATE/TIME PROCEDURE ORDERING PROVIDER [id number] 03/19/2021 20:29 EDT CR Elbow 3+ Views Right MD AGUILERA NISHIT CPT code 76457 Reason For Exam (CR Elbow 3+ Views Right) r elbow pain Report RIGHT ELBOW 3 VIEWS CLINICAL INDICATION: r elbow pain TECHNIQUE: 3 views of the right elbow. COMPARISON: None. FINDINGS: No acute fracture or dislocation. Joint spaces maintained. No abnormal fat-pad sign. Soft tissues grossly unremarkable. IMPRESSION: 1. No acute osseous abnormality. Report Dictated on Workstation: [id number] --- Final --- Dictated: 03/19/2021 8:34 pm Dictating Physician: MD BALES WENDELL Signed Date and Time: 03/19/2021 8:34 pm Signed by: MD BALES WENDELL Transcribed Date and Time: 03/19/2021 8:34 [facility] Work Phone: [facility], [facility] Results From [facility] - 03/19/2021 8:36 PM EDT Patient Name: CHARLINE SANCHEZ Diagnostic Radiology ACCESSION EXAM DATE/TIME PROCEDURE ORDERING PROVIDER [id number] 03/19/2021 20:29 EDT CR Elbow 3+ Views Right MD AGUILERA NISHIT CPT code 50571 Reason For Exam (CR Elbow 3+ Views Right) r elbow pain Report RIGHT ELBOW 3 VIEWS CLINICAL INDICATION: r elbow pain TECHNIQUE: 3 views of the right elbow. COMPARISON: None. FINDINGS: No acute fracture or dislocation. Joint spaces maintained. No abnormal fat-pad sign. Soft tissues grossly unremarkable. IMPRESSION: 1. No acute osseous abnormality. Report Dictated on Workstation: [id number] --- Final --- Dictated: 03/19/2021 8:34 pm Dictating Physician: MD BALES WENDELL Signed Date and Time: 03/19/2021 8:34 pm Signed by: MD BALES WENDELL Transcribed Date and Time: 03/19/2021 8:34 [facility] Work Phone: [facility] Work Phone: Vital Signs Date Time Vital Sign Value Performing Clinician Facility 01-27-2025 08:08-0400 Body height 172.7 cm Pst 1 [facility] 01-27-2025 08:08-0400 Body mass index (BMI) [Ratio] 29.95 kg/m2 Pst 1 [facility] 01-27-2025 08:08-0400 Body temperature 98.1 [degF] Pst 1 [facility] 01-27-2025 08:08-0400 Body weight 89.36 kg Pst 1 [facility] 01-27-2025 08:08-0400 Diastolic blood pressure 74 mm[Hg] Pst 1 [facility] 01-27-2025 08:08-0400 Heart rate 73 /min Pst 1 [facility] 01-27-2025 08:08-0400 Respiratory rate 16 /min Pst 1 [facility] 01-27-2025 08:08-0400 SaO2% (BldA) [Mass fraction] 96 % Pst 1 [facility] 01-27-2025 08:08-0400 Systolic blood pressure 118 mm[Hg] Pst 1 [facility] 11-25-2024 09:43-0400 Body height 172.7 cm Jaye Eid PA-C Work Phone: [facility] 11-25-2024 09:43-0400 Body mass index (BMI) [Ratio] 30.71 kg/m2 Jaye Eid PA-C Work Phone: [facility] 11-25-2024 09:43-0400 Body temperature 97.7 [degF] Jaye Eid PA-C Work Phone: [facility] 11-25-2024 09:43-0400 Body weight 91.63 kg Jaye Eid PA-C Work Phone: [facility] 11-25-2024 09:43-0400 Diastolic blood pressure 82 mm[Hg] Jaye Eid PA-C Work Phone: [facility] 11-25-2024 09:43-0400 Heart rate 72 /min Jaye Eid PA-C Work Phone: [facility] 11-25-2024 09:43-0400 Respiratory rate 12 /min Jaye Eid PA-C Work Phone: [facility] 11-25-2024 09:43-0400 SaO2% (BldA) [Mass fraction] 97 % Jaye Eid PA-C Work Phone: [facility] 11-25-2024 09:43-0400 Systolic blood pressure 138 mm[Hg] Jaye Eid PA-C Work Phone: [facility] 10-30-2024 09:35-0400 Body height 172.7 cm Tricia Antonio MD Work Phone: [facility] 10-30-2024 09:35-0400 Body mass index (BMI) [Ratio] 30.41 kg/m2 Tricia Antonio MD Work Phone: [facility] 10-30-2024 09:35-0400 Body temperature 97.9 [degF] Tricia Antonio MD Work Phone: [facility] 10-30-2024 09:35-0400 Body weight 90.72 kg Tricia Antonio MD Work Phone: [facility] 10-30-2024 09:35-0400 Diastolic blood pressure 74 mm[Hg] Tricia Antonio MD Work Phone: [facility] 10-30-2024 09:35-0400 Heart rate 74 /min Tricia Antonio MD Work Phone: [facility] 10-30-2024 09:35-0400 Respiratory rate 14 /min Tricia Antonio MD Work Phone: [facility] 10-30-2024 09:35-0400 SaO2% (BldA) [Mass fraction] 95 % Tricia Antonio MD Work Phone: [facility] 10-30-2024 09:35-0400 Systolic blood pressure 120 mm[Hg] Tricia Antonio MD Work Phone: [facility] 10-16-2024 08:55-0400 Body mass index (BMI) [Ratio] 30.84 kg/m2 Viktor Ferrera MD Work Phone: [facility] 10-16-2024 08:55-0400 Body weight 92 kg Viktor Ferrera MD Work Phone: [facility] 10-16-2024 08:55-0400 Diastolic blood pressure 80 mm[Hg] Viktor Ferrera MD Work Phone: [facility] 10-16-2024 08:55-0400 Heart rate 68 /min Viktor Ferrera MD Work Phone: [facility] 10-16-2024 08:55-0400 Respiratory rate 18 /min Viktor Ferrera MD Work Phone: [facility] 10-16-2024 08:55-0400 Systolic blood pressure 126 mm[Hg] Viktor Ferrera MD Work Phone: [facility] 10-08-2024 15:28-0400 Body mass index (BMI) [Ratio] 30.81 kg/m2 Mali er PA-C Work Phone: [facility] 10-08-2024 15:28-0400 Body weight 91.9 kg Mali er PA-C Work Phone: [facility] 10-08-2024 15:28-0400 Diastolic blood pressure 74 mm[Hg] Mali Queener PA-C Work Phone: [facility] 10-08-2024 15:28-0400 Heart rate 67 /min Mali er PA-C Work Phone: [facility] 10-08-2024 15:28-0400 SaO2% (BldA) [Mass fraction] 95 % Mali Regaladoer PA-C Work Phone: [facility] 10-08-2024 15:28-0400 Systolic blood pressure 124 mm[Hg] Malimaria Regaladoer PA-C Work Phone: [facility] 05-22-2024 06:58-0500 Body mass index (BMI) [Ratio] 31.71 kg/m2 Michelle Martin B2B OUTSIDE SALES REPRESENTATIVE.MUSIC COORDINATOR Work Phone: [facility] 05-22-2024 06:58-0500 Body weight 94.6 kg Michelle Martin B2B OUTSIDE SALES REPRESENTATIVE.MUSIC COORDINATOR Work Phone: [facility] 05-22-2024 06:58-0500 Diastolic blood pressure 70 mm[Hg] Michelle Martin B2B OUTSIDE SALES REPRESENTATIVE.MUSIC COORDINATOR Work Phone: [facility] 05-22-2024 06:58-0500 Heart rate 80 /min Michelle Martin B2B OUTSIDE SALES REPRESENTATIVE.MUSIC COORDINATOR Work Phone: [facility] 05-22-2024 06:58-0500 Respiratory rate 16 /min Michelle Mckoyhof B2B OUTSIDE SALES REPRESENTATIVE.MUSIC COORDINATOR Work Phone: [facility] 05-22-2024 06:58-0500 SaO2% (BldA) [Mass fraction] 96 % Michelle Mckoyhof B2B OUTSIDE SALES REPRESENTATIVE.MUSIC COORDINATOR Work Phone: [facility] 05-22-2024 06:58-0500 Systolic blood pressure 116 mm[Hg] Michelle Mckoyhof B2B OUTSIDE SALES REPRESENTATIVE.MUSIC COORDINATOR Work Phone: [facility] 05-21-2024 08:34-0500 Body mass index (BMI) [Ratio] 32.05 kg/m2 Heath Athy PA-C Work Phone: [facility] 05-21-2024 08:34-0500 Body temperature 97.3 [degF] Heath Athy PA-C Work Phone: [facility] 05-21-2024 08:34-0500 Body weight 95.6 kg Heath Athy PA-C Work Phone: [facility] 05-21-2024 08:34-0500 Diastolic blood pressure 76 mm[Hg] Heath Athy PA-C Work Phone: [facility] 05-21-2024 08:34-0500 Heart rate 76 /min Heath Athy PA-C Work Phone: [facility] 05-21-2024 08:34-0500 Respiratory rate 16 /min Heath Athy PA-C Work Phone: [facility] 05-21-2024 08:34-0500 SaO2% (BldA) [Mass fraction] 95 % Heath Athy PA-C Work Phone: [facility] 05-21-2024 08:34-0500 Systolic blood pressure 124 mm[Hg] Heath Athy PA-C Work Phone: [facility] 05-12-2024 09:38-0500 Body height 172.7 cm Francisco Hightower B2B OUTSIDE SALES REPRESENTATIVE.MUSIC COORDINATOR, DNP Work Phone: [facility] 05-12-2024 09:38-0500 Body mass index (BMI) [Ratio] 31.47 kg/m2 Francisco Hightower APRN.[facility], DNP Work Phone: [facility] 05-12-2024 09:38-0500 Body temperature 97.7 [degF] Francisco Hightower APRN.[facility], DNP Work Phone: [facility] 05-12-2024 09:38-0500 Body weight 93.89 kg Francisco Hightower APRN.[facility], [facility] Work Phone: [facility] 05-12-2024 09:38-0500 Diastolic blood pressure 80 mm[Hg] Francisco Hightower APRN.[facility], [facility] Work Phone: [facility] 05-12-2024 09:38-0500 Heart rate 70 /min Francisco Hightower APRN.[facility], [facility] Work Phone: [facility] 05-12-2024 09:38-0500 Respiratory rate 14 /min Francisco Hightower APRN.[facility], [facility] Work Phone: [facility] 05-12-2024 09:38-0500 SaO2% (BldA) [Mass fraction] 96 % Francisco Hightower APRN.[facility], [facility] Work Phone: [facility] 05-12-2024 09:38-0500 Systolic blood pressure 132 mm[Hg] Francisco Hightower APRN.[facility], [facility] Work Phone: [facility] 04-10-2024 09:10-0400 Body mass index (BMI) [Ratio] 31.38 kg/m2 Viktor Ferrera MD Work Phone: [facility] 04-10-2024 09:10-0400 Body weight 93.6 kg Viktor Ferrera MD Work Phone: [facility] 04-10-2024 09:10-0400 Diastolic blood pressure 82 mm[Hg] Viktor Ferrera MD Work Phone: [facility] 04-10-2024 09:10-0400 Heart rate 78 /min Viktor Ferrera MD Work Phone: [facility] 04-10-2024 09:10-0400 Respiratory rate 18 /min Viktor Ferrera MD Work Phone: [facility] 04-10-2024 09:10-0400 Systolic blood pressure 128 mm[Hg] Viktor Ferrera MD Work Phone: [facility] 04-09-2024 16:32-0400 Body mass index (BMI) [Ratio] 31.32 kg/m2 Mali Queener PA-C Work Phone: [facility] 04-09-2024 16:32-0400 Body weight 93.44 kg Mali Queener PA-C Work Phone: [facility] 04-09-2024 16:32-0400 Diastolic blood pressure 74 mm[Hg] Mali Queener PA-C Work Phone: [facility] 04-09-2024 16:32-0400 Heart rate 77 /min Mali Queener PA-C Work Phone: [facility] 04-09-2024 16:32-0400 Respiratory rate 18 /min Mali Queener PA-C Work Phone: [facility] 04-09-2024 16:32-0400 SaO2% (BldA) [Mass fraction] 98 % Mali Queener PA-C Work Phone: [facility] 04-09-2024 16:32-0400 Systolic blood pressure 123 mm[Hg] Mali Queener PA-C Work Phone: [facility] 03-24-2024 10:26-0400 Body mass index (BMI) [Ratio] 31.32 kg/m2 Francisco Hightower APRN.CNP, DNP Work Phone: [facility] 03-24-2024 10:26-0400 Body temperature 97.59 [degF] Francisco Hightower APRN.CNP, DNP Work Phone: [facility] 03-24-2024 10:26-0400 Body weight 93.44 kg Francisco Hightower APRN.MUSIC COORDINATOR, DNP Work Phone: [facility] 03-24-2024 10:26-0400 Diastolic blood pressure 80 mm[Hg] Francisco Hightower APRN.MUSIC COORDINATOR, DNP Work Phone: [facility] 03-24-2024 10:26-0400 Heart rate 68 /min Francisco Hightower APRN.MUSIC COORDINATOR, DNP Work Phone: [facility] 03-24-2024 10:26-0400 Respiratory rate 14 /min Francisco Hightower APRN.MUSIC COORDINATOR, DNP Work Phone: [facility] 03-24-2024 10:26-0400 SaO2% (BldA) [Mass fraction] 96 % Francisco Hightower APRN.MUSIC COORDINATOR, DNP Work Phone: [facility] 03-24-2024 10:26-0400 Systolic blood pressure 128 mm[Hg] Francisco Hightower APRN.MUSIC COORDINATOR, DNP Work Phone: [facility] 12-24-2023 11:07-0400 Body mass index (BMI) [Ratio] 31.05 kg/m2 Kenan Pace Jr., MD Work Phone: [facility] 12-24-2023 11:07-0400 Body weight 92.63 kg Kenan Pace Jr., MD Work Phone: [facility] 12-24-2023 11:07-0400 Diastolic blood pressure 76 mm[Hg] Kenan Pace Jr., MD Work Phone: [facility] 12-24-2023 11:07-0400 Heart rate 72 /min Kenan Pace Jr., MD Work Phone: [facility] 12-24-2023 11:07-0400 Respiratory rate 16 /min Kenan Pace Jr., MD Work Phone: [facility] 12-24-2023 11:07-0400 SaO2% (BldA) [Mass fraction] 95 % Kenan Pace Jr., MD Work Phone: [facility] 12-24-2023 11:07-0400 Systolic blood pressure 132 mm[Hg] Kenan Pace Jr., MD Work Phone: [facility] 12-10-2023 11:01-0400 Body height 172.7 cm Francisco Hightower APRN.[facility], [facility] Work Phone: [facility] 12-10-2023 11:01-0400 Body mass index (BMI) [Ratio] 31.17 kg/m2 Francisco Hightower APRN.MUSIC COORDINATOR, [facility] Work Phone: [facility] 12-10-2023 11:01-0400 Body temperature 97.81 [degF] Francisco Hightower APRN.[facility], [facility] Work Phone: [facility] 12-10-2023 11:01-0400 Body weight 92.99 kg Francisco Hightower APRN.[facility], [facility] Work Phone: [facility] 12-10-2023 11:01-0400 Diastolic blood pressure 82 mm[Hg] Francisco Hightower APRN.[facility], [facility] Work Phone: [facility] 12-10-2023 11:01-0400 Heart rate 78 /min Francisco Hightower APRN.[facility], [facility] Work Phone: [facility] 12-10-2023 11:01-0400 Respiratory rate 14 /min Francisco Hightower APRN.[facility], [facility] Work Phone: [facility] 12-10-2023 11:01-0400 SaO2% (BldA) [Mass fraction] 95 % Francisco Hightower APRN.MUSIC COORDINATOR, [facility] Work Phone: [facility] 12-10-2023 11:01-0400 Systolic blood pressure 122 mm[Hg] Francisco Hightower APRN.MUSIC COORDINATOR, [facility] Work Phone: [facility] 10-10-2023 08:56-0400 Body weight 92.99 kg Michelle Martin APRN.MUSIC COORDINATOR Work Phone: [facility] 10-10-2023 08:56-0400 Diastolic blood pressure 70 mm[Hg] Michelle Tannhof B2B OUTSIDE SALES REPRESENTATIVE.MUSIC COORDINATOR Work Phone: [facility] 10-10-2023 08:56-0400 Heart rate 85 /min Michelle Tannhof B2B OUTSIDE SALES REPRESENTATIVE.MUSIC COORDINATOR Work Phone: [facility] 10-10-2023 08:56-0400 Respiratory rate 16 /min Michelle Tannhof B2B OUTSIDE SALES REPRESENTATIVE.MUSIC COORDINATOR Work Phone: [facility] 10-10-2023 08:56-0400 SaO2% (BldA) [Mass fraction] 95 % Michelle Tannhof B2B OUTSIDE SALES REPRESENTATIVE.MUSIC COORDINATOR Work Phone: [facility] 10-10-2023 08:56-0400 Systolic blood pressure 122 mm[Hg] Michelle Tannhof B2B OUTSIDE SALES REPRESENTATIVE.MUSIC COORDINATOR Work Phone: [facility] 09-03-2023 09:13-0500 Body weight 94.35 kg Michelle Tannhof B2B OUTSIDE SALES REPRESENTATIVE.MUSIC COORDINATOR Work Phone: [facility] 09-03-2023 09:13-0500 Diastolic blood pressure 76 mm[Hg] Michelle Tannhof B2B OUTSIDE SALES REPRESENTATIVE.MUSIC COORDINATOR Work Phone: [facility] 09-03-2023 09:13-0500 Heart rate 76 /min Mcihelle Tannhof B2B OUTSIDE SALES REPRESENTATIVE.MUSIC COORDINATOR Work Phone: [facility] 09-03-2023 09:13-0500 Respiratory rate 16 /min Michelle Tannhof B2B OUTSIDE SALES REPRESENTATIVE.MUSIC COORDINATOR Work Phone: [facility] 09-03-2023 09:13-0500 SaO2% (BldA) [Mass fraction] 93 % Michelle Tannhof B2B OUTSIDE SALES REPRESENTATIVE.MUSIC COORDINATOR Work Phone: [facility] 09-03-2023 09:13-0500 Systolic blood pressure 124 mm[Hg] Michelle Tannhof B2B OUTSIDE SALES REPRESENTATIVE.MUSIC COORDINATOR Work Phone: [facility] 08-31-2023 08:08-0500 Body temperature 98.71 [degF] Kenan Munoz MD Work Phone: [facility] 08-31-2023 08:08-0500 Body weight 93.98 kg Kenan Munoz MD Work Phone: [facility] 08-31-2023 08:08-0500 Diastolic blood pressure 92 mm[Hg] Kenan Munoz MD Work Phone: [facility] 08-31-2023 08:08-0500 Heart rate 80 /min Kenan Munoz MD Work Phone: [facility] 08-31-2023 08:08-0500 Respiratory rate 20 /min Kenan Munoz MD Work Phone: [facility] 08-31-2023 08:08-0500 SaO2% (BldA) [Mass fraction] 96 % Kenan Munoz MD Work Phone: [facility] 08-31-2023 08:08-0500 Systolic blood pressure 157 mm[Hg] Kenan Munoz MD Work Phone: [facility] 09-19-2022 09:23-0400 Body weight 93.89 kg Viktor Ferrera MD Work Phone: [facility] 09-19-2022 09:23-0400 Diastolic blood pressure 82 mm[Hg] Viktor Ferrera MD Work Phone: [facility] 09-19-2022 09:23-0400 Heart rate 68 /min Viktor Ferrera MD Work Phone: [facility] [facility] 09-19-2022 09:23-0400 Respiratory rate 16 /min Viktor Ferrera MD Work Phone: [facility] 09-19-2022 09:23-0400 Systolic blood pressure 124 mm[Hg] Viktor Ferrera MD Work Phone: [facility] 03-20-2022 09:21-0400 Body weight 90.72 kg Viktor Ferrera MD Work Phone: [facility] 03-20-2022 09:21-0400 Diastolic blood pressure 78 mm[Hg] Viktor Ferrera MD Work Phone: [facility] 03-20-2022 09:21-0400 Heart rate 70 /min Viktor Ferrera MD Work Phone: [facility] 03-20-2022 09:21-0400 Respiratory rate 16 /min Viktor Ferrera MD Work Phone: [facility] 03-20-2022 09:21-0400 Systolic blood pressure 120 mm[Hg] Viktor Ferrera MD Work Phone: [facility] 03-19-2021 18:04-0400 Body temperature 97.5 [degF] Kary Aguilera MD Work Phone: [facility] Work Phone: 03-19-2021 18:04-0400 Body weight 88.45 kg Kary Aguilera MD Work Phone: [facility] Work Phone: 03-19-2021 18:04-0400 Diastolic blood pressure 81 mm[Hg] Kary Aguilera MD Work Phone: [facility] Work Phone: 03-19-2021 18:04-0400 Heart rate 77 /min Kary Aguilera MD Work Phone: [facility] Work Phone: 03-19-2021 18:04-0400 Respiratory rate 20 /min Kary Aguilera MD Work Phone: [facility] Work Phone: 03-19-2021 18:04-0400 SaO2% (BldA) [Mass fraction] 95 % Kary Aguilera MD Work Phone: [facility] Work Phone: 03-19-2021 18:04-0400 Systolic blood pressure 125 mm[Hg] Kary Aguilera MD Work Phone: [facility] Work Phone: Encounters Encounter Date Encounter Type Care Provider Facility Start: 01-31-2025 End: 02-03-2025 Refill Mali Modi PA-C Work Phone: Neurology Comment on above: Refill Request Start: 01-30-2025 End: 01-30-2025 ambulatory DAVID SHERIFF JR Facility:[id number] Start: 01-29-2025 End: 01-29-2025 Telephone encounter Td Brooke MD Work Phone: [facility] Start: 01-28-2025 End: 01-28-2025 Orders Only David Sheriff MD Work Phone: [facility] Comment on above: Heart murmur (Primar y Dx) Orders Start: 01-27-2025 End: 01-27-2025 Telephone encounter Abiola Sorto APRN.CNP Work Phone: Pre Surgical Testing Comment on above: Pre-Op Update Start: 01-27-2025 End: 01-27-2025 Nursing evaluation of patient and report Nurse Irene [facility] Work Phone: General Surgery Comment on above: Visit for suture rem oval (Primary Dx) Start: 01-27-2025 End: 01-27-2025 Admission to establishment [facility] [place] 1 Pre Surgical Testing Start: 01-27-2025 End: 01-27-2025 Preprocedural examination done Pst 1 [facility] Work Phone: Start: 01-27-2025 End: 01-27-2025 ambulatory VIKTOR Amrita [facility] Pre Surgical Testing Comment on above: Pre-op exam (Primary Dx); BPH associated with nocturia; Bladder calculus; DM (diabetes mellitus), type 2 with neurological complications (HCC); Primary hypertension; Hyperlipidemia with target LDL less than 100; Hiatal hernia; Gastroesophageal reflux disease without esophagitis; Deep vein thrombosis (DVT) of proximal lower extremity, unspecified chronicity, unspecified laterality (HCC); Heart murmur Start: 01-26-2025 Preprocedural examin ation done Pst 1 [facility] Start: 01-26-2025 Encounter for other preprocedural examination VIKTOR FERRERA [facility] Start: 12-29-2024 End: 12-29-2024 Patient encounter procedure David Sheriff MD Work Phone: Urology Comment on above: Gross hematuria (Mayra yoli Dx); BPH with obstruction/lower urinary tract symptoms; Bladder stone Start: 12-29-2024 End: 12-29-2024 ambulatory DAVID SHERIFF JR Facility:[facility] Start: 12-10-2024 End: 12-10-2024 Nursing evaluation of patient and report Nurse Irene [facility] Work Phone: General Surgery Comment on above: Visit for suture rem oval (Primary Dx) Start: 12-10-2024 End: 12-10-2024 ambulatory [facility] Facility:[facility] Start: 12-09-2024 End: 12-09-2024 ambulatory JAYE EID Facility:[facility] Start: 12-09-2024 End: 12-09-2024 Subsequent hospital visit by physician Lisha [facility] (I-Stat) Work Phone: Cat Scan Comment on above: Gross hematuria [R31 .0] Start: 12-03-2024 End: 12-03-2024 ambulatory [facility] Facility:[facility] Start: 12-03-2024 End: 12-03-2024 Nursing evaluation of patient and report Nurse Irene [facility] Work Phone: General Surgery Comment on above: Visit for suture rem oval (Primary Dx) Start: 11-28-2024 End: 01-28-2025 Follow-up encounter Jaye Eid PA-C Work Phone: Urology Comment on above: Results; Orders Start: 11-26-2024 End: 11-26-2024 Patient encounter procedure Tricia Antonio MD Work Phone: General Surgery Comment on above: Sebaceous cyst (Prim jewels Dx) Start: 11-26-2024 End: 11-26-2024 ambulatory TRICIA ANTONIO Facility:[facility] Start: 11-25-2024 End: 11-25-2024 Telephone encounter David Sheriff MD Work Phone: [facility] Comment on above: Appointment Start: 11-25-2024 End: 11-25-2024 Patient encounter procedure Jaye Eid PA-C Work Phone: Urology Comment on above: Gross hematuria (Mayra yoli Dx); BPH associated with nocturia; OAB (overactive bladder); Elevated PSA; PFD (pelvic floor dysfunction); Screening for genitourinary condition Start: 11-25-2024 End: 11-25-2024 ambulatory JAYE EID Facility:[facility] Start: 10-30-2024 End: 10-30-2024 Patient encounter procedure Tricia Antonio MD Work Phone: General Surgery Comment on above: Sebaceous cyst; Skin lesion Start: 10-30-2024 ambulatory TRICIA ANTONIO Facil ity:[facility] Start: 10-16-2024 End: 10-16-2024 Office outpatient visit 25 minutes Viktor Ferrera MD Work Phone: [facility] [place] Comment on above: Controlled type 2 di abetes mellitus without complication, without long-term current use of insulin (HCC) (Primary Dx); Essential hypertension; Hyperlipidemia with target LDL less than 100; Vitamin D deficiency; Elevated PSA; BPH associated with nocturia; Memory changes; Radiculopathy of lumbar region; Cervical radiculopathy; DM (diabetes mellitus), type 2 with neurological complications (HCC); Screening for depression; Encounter for screening examination for other mental health and behavioral disorders; Sebaceous cyst; Skin lesion Start: 10-16-2024 End: 10-16-2024 ambulatory VIKTOR FERRERA Facility:[facility] Start: 10-13-2024 End: 10-13-2024 ambulatory VIKTOR FERRERA Facility:[facility] Start: 10-08-2024 End: 10-08-2024 Patient encounter procedure Mali Modi PA-C Work Phone: Neurology Comment on above: MCI (mild cognitive impairment) (Primary Dx); Memory loss Start: 10-08-2024 End: 10-08-2024 ambulatory VIKTOR FERRERA Facility:[facility] Start: 10-07-2024 End: 10-07-2024 Coordination of care plan Tiarra Leon PT Work Phone: [facility] Comment on above: Urinary incontinence , unspecified type (Primary Dx); Muscular incoordination; Nocturia Start: 10-07-2024 End: 10-07-2024 ambulatory Tiarra Leon PT Work Phone: [facility] Start: 09-10-2024 End: 09-10-2024 Coordination of care plan Tiarra Leon PT Work Phone: [facility] Comment on above: Urinary incontinence , unspecified type (Primary Dx); Muscular incoordination; Nocturia Start: 09-10-2024 End: 09-10-2024 ambulatory Tiarra Schroederch PT Work Phone: [facility] Start: 08-18-2024 End: 08-18-2024 ambulatory Tiarra Leon PT Work Phone: [facility] Start: 08-18-2024 End: 08-18-2024 Coordination of care plan Tiarra Leon PT Work Phone: [facility] Comment on above: Urinary incontinence , unspecified type (Primary Dx); Muscular incoordination; Nocturia Start: 08-05-2024 End: 08-05-2024 Coordination of care plan Tiarra Leon PT Work Phone: [facility] Comment on above: Muscular incoordinat ion (Primary Dx); Urinary incontinence, unspecified type; Nocturia Start: 08-05-2024 End: 08-05-2024 ambulatory Tiarra Leon PT Work Phone: [facility] Start: 06-30-2024 End: 06-30-2024 ambulatory Mario Glez PT Work Phone: [facility] Comment on above: Strain of neck muscl e, initial encounter (Primary Dx); Cervical radiculopathy; Radiculopathy of lumbar region Urinary incontinence , unspecified type (Primary Dx) Start: 06-26-2024 End: 06-26-2024 Telephone encounter Viktor Ferrera MD Work Phone: [facility] Comment on above: Results Start: 06-23-2024 End: 06-23-2024 ambulatory Mario Newton PT Work Phone: [facility] Comment on above: Strain of neck muscl e, initial encounter (Primary Dx); Cervical radiculopathy; Radiculopathy of lumbar region Start: 06-18-2024 End: 06-18-2024 Subsequent hospital visit by physician Mri [facility] (I-Stat/1.5t) Work Phone: Radiology Comment on above: Radiculopathy of lum bar region [M54.16] Start: 06-18-2024 End: 06-18-2024 ambulatory Mario Newton PT Work Phone: [facility] Comment on above: Radiculopathy of lum bar region (Primary Dx); Strain of neck muscle, initial encounter; Cervical radiculopathy Start: 06-12-2024 End: 06-12-2024 Telephone encounter Viktor Ferrera MD Work Phone: [facility] Comment on above: Patient Question Start: 06-11-2024 End: 06-11-2024 ambulatory Mariomuna Glez PT Work Phone: [facility] Comment on above: Strain of neck muscl e, initial encounter (Primary Dx); Cervical radiculopathy Start: 06-10-2024 End: 06-12-2024 ambulatory Viktor Frerera MD Work Phone: [facility] Start: 06-04-2024 End: 06-04-2024 ambulatory Mario Newton PT Work Phone: [facility] Comment on above: Strain of neck muscl e, initial encounter (Primary Dx); Cervical radiculopathy Start: 05-27-2024 End: 05-27-2024 ambulatory Mario Newton PT Work Phone: [facility] Comment on above: Cervical radiculopat hy (Primary Dx); Strain of neck muscle, initial encounter Start: 05-22-2024 End: 05-22-2024 ambulatory MICHELLE MARTIN Facility:[facility] Start: 05-22-2024 End: 05-22-2024 Patient encounter procedure Michelle Martin APRN.MUSIC COORDINATOR Work Phone: [facility] Comment on above: Strain of neck muscl e, initial encounter (Primary Dx); Cervical radiculopathy; Controlled type 2 diabetes mellitus without complication, without long-term current use of insulin (HCC) Start: 05-21-2024 End: 05-21-2024 Patient encounter procedure Heath Fuentes PA-C Work Phone: [facility] Comment on above: Neck pain on right s silverio (Primary Dx) Start: 05-21-2024 End: 05-21-2024 ambulatory Mario Newton PT Work Phone: [facility] Comment on above: Radiculopathy of lum bar region (Primary Dx) Start: 05-14-2024 End: 05-14-2024 ambulatory Mariomuna Glez PT Work Phone: [facility] Comment on above: Radiculopathy of lum bar region (Primary Dx) Start: 05-12-2024 End: 05-12-2024 ambulatory VIKTOR FERRERA Facility:[facility] Start: 05-12-2024 End: 05-12-2024 Patient encounter procedure Francisco Hightower APRN.MUSIC COORDINATOR, DNP Work Phone: Urology Comment on above: BPH associated with nocturia (Primary Dx); Urgency of urination; OAB (overactive bladder); Elevated PSA Start: 05-09-2024 End: 05-09-2024 ambulatory Mario Newton PT Work Phone: [facility] Comment on above: Radiculopathy of lum bar region (Primary Dx) Start: 05-05-2024 End: 05-05-2024 Telephone encounter Montana Leblanc APRN.MUSIC COORDINATOR Work Phone: [facility] Comment on above: Results Start: 04-29-2024 End: 04-29-2024 ambulatory Mariomuna Glez PT Work Phone: [facility] Comment on above: Radiculopathy of lum bar region (Primary Dx) Start: 04-21-2024 End: 04-21-2024 Refill Francisco Hightower APRN.NORMA DODD Work Phone: Urology Comment on above: Med Change Request Start: 04-19-2024 End: 04-21-2024 Refill Francisco Hightower APRN.CNP, DNP Work Phone: Urology Comment on above: Med Change Request Start: 04-16-2024 End: 04-16-2024 Refill Francisco Hightower APRN.NORMA DODD Work Phone: Urology Comment on above: Med Change Request Start: 04-10-2024 End: 04-10-2024 ambulatory VIKTOR Crowe [facility] Facility:[facility] Start: 04-10-2024 End: 04-10-2024 Patient encounter procedure Viktor Ferrera MD Work Phone: [facility] Comment on above: Controlled type 2 di abetes mellitus without complication, without long-term current use of insulin (HCC) (Primary Dx); Essential hypertension; Hyperlipidemia with target LDL less than 100; Memory changes; Vitamin D deficiency; BPH associated with nocturia; Elevated PSA; Radiculopathy of lumbar region; Screening for colon cancer Start: 04-09-2024 End: 04-09-2024 Patient encounter procedure Mali Modi PA-C Work Phone: Neurology Comment on above: MCI (mild cognitive impairment) (Primary Dx); Memory loss Start: 04-09-2024 End: 04-09-2024 ambulatory VIKTOR rCowe [facility] Facility:[facility] Start: 04-08-2024 End: 04-08-2024 Telephone encounter Francisco Hightower APRN.CNP, DNP Work Phone: Urology Comment on above: Results Start: 04-07-2024 End: 04-07-2024 ambulatory MICHELLE MARTIN Facility:[facility] Start: 03-24-2024 End: 03-24-2024 ambulatory VIKTOR WUDORR Facility:[facility] Start: 03-24-2024 End: 03-24-2024 Patient encounter procedure Francisco Hightower APRN.MUSIC COORDINATOR, DNP Work Phone: Urology Comment on above: BPH associated with nocturia (Primary Dx); Elevated PSA; OAB (overactive bladder) Start: 02-06-2024 Telephone encounter Jesse lino PhD Work Phone: [facility] Comment on above: Patient Update Start: 02-05-2024 End: 02-05-2024 Patient encounter procedure Jesse Bain PhD Work Phone: [facility] Comment on above: Mild cognitive impai rment (Primary Dx); Depression with anxiety Start: 02-05-2024 End: 02-05-2024 ambulatory JESSE BAIN Facility:[facility] Start: 01-24-2024 End: 01-24-2024 Patient encounter procedure Jesse Bain PhD Work Phone: [facility] Comment on above: Memory loss (Primary Dx) Start: 01-17-2024 Telephone encounter Jesse lino PhD Work Phone: [facility] Comment on above: Appointment Start: 12-27-2023 Telephone encounter No Pcp DEE DEE [facility] Comment on above: Appointment Start: 12-26-2023 End: 12-26-2023 Subsequent hospital visit by physician Mri [facility] (I-Stat/1.5t) Work Phone: Radiology Comment on above: Memory loss [R41.3] Start: 12-24-2023 End: 12-24-2023 Patient encounter procedure Kenan Pace MD Work Phone: Neurology Comment on above: Memory loss (Primary Dx); Cognitive decline Start: 12-10-2023 End: 12-10-2023 Patient encounter procedure Francisco Hightower APRN.MUSIC COORDINATOR, DNP Work Phone: Urology Comment on above: BPH associated with nocturia (Primary Dx); Elevated PSA Start: 12-05-2023 Refill Viktor marr MD Work Phone: [facility] Comment on above: Refill Request Start: 11-27-2023 ambulatory Sonia Beavers Katie SURAJ [facility] [place] Start: 11-27-2023 Patient encounter procedure Sonia Wilson MA [facility] Comment on above: Population Health Na vigation Outreach ([employer],[place]) Start: 10-12-2023 Telephone encounter Michelle edwards B2B OUTSIDE SALES REPRESENTATIVE.MUSIC COORDINATOR Work Phone: [facility] Comment on above: Results (Labs ) Start: 10-10-2023 End: 10-10-2023 Patient encounter procedure Michelle Martin B2B OUTSIDE SALES REPRESENTATIVE.MUSIC COORDINATOR Work Phone: [facility] Comment on above: BPH associated with nocturia (Primary Dx); Elevated PSA; Memory changes; DM (diabetes mellitus), type 2 with neurological complications (HCC); Essential hypertension; Radiculopathy of lumbar region; Radiculitis, cervical; Hyperlipidemia with target LDL less than 100 Start: 09-03-2023 End: 09-03-2023 Patient encounter procedure Michelle Martin B2B OUTSIDE SALES REPRESENTATIVE.MUSIC COORDINATOR Work Phone: [facility] Comment on above: Bronchitis (Primary Dx) Start: 09-01-2023 Telephone encounter Kenan Sheridan MD Work Phone: [facility] Comment on above: Results Start: 08-31-2023 End: 08-31-2023 Patient encounter procedure Kenan Munoz MD Work Phone: [facility] Comment on above: URI, acute (Primary Dx); Acute cough Start: 08-21-2023 ambulatory Michelle Farias (Pas) [facility] Comment on above: Population Health Na vigation Outreach ([employer] care gaps) Start: 03-26-2023 ambulatory Michelle Farias (Pas) [facility] Comment on above: Population Health Na vigation Outreach ([employer] care gaps) Start: 09-22-2022 Telephone encounter Viktor nick MD Work Phone: [facility] Comment on above: Appointment Start: 09-19-2022 End: 09-19-2022 Patient encounter procedure Viktor Ferrera MD Work Phone: [facility] Comment on above: Essential hypertensi on (Primary Dx); Hyperlipidemia with target LDL less than 100; DM (diabetes mellitus), type 2 with neurological complications (HCC); Lumbar degenerative disc disease; Cervical radiculopathy; BPH associated with nocturia; Elevated PSA; Screening for colon cancer Start: 04-13-2022 Refill Teetee Maddy Horvath Comment on above: Refill Request Start: 03-20-2022 End: 03-20-2022 Patient encounter procedure Viktor Ferrera MD Work Phone: [facility] Comment on above: DM (diabetes mellitu s), type 2 with neurological complications (HCC) (Primary Dx); Intervertebral lumbar disc disorder with myelopathy, lumbar region; Primary hypertension; Hyperlipidemia with target LDL less than 100; BPH associated with nocturia Start: 02-27-2022 ambulatory Cecille Beavers (Ps s) [facility] [place] Comment on above: Population Health Na vigation Outreach ([employer] Care Gaps) Start: 10-18-2021 End: 10-18-2021 ambulatory Abdullahi Conde PT Work Phone: [facility] Comment on above: Chronic pain of both shoulders (Primary Dx) Start: 10-12-2021 Refill iVktor marr MD Work Phone: [facility] Comment on above: Refill Request Start: 10-11-2021 End: 10-11-2021 ambulatory Abdullahi Conde PT Work Phone: [facility] Comment on above: Chronic pain of both shoulders (Primary Dx) Start: 09-27-2021 End: 09-27-2021 ambulatory Abdullahi Conde PT Work Phone: [facility] Comment on above: Chronic pain of both shoulders (Primary Dx) Start: 04-04-2021 End: 10-04-2021 [facility] Comment on above: Chronic pain of both shoulders [M25.511, G89.29, M25.512] Start: 03-19-2021 End: 03-19-2021 Emergency department patient visit Kary Aguilera MD Work Phone: [facility] Comment on above: Laceration of nose, initial encounter (Primary Dx); Facial injury, initial encounter Start: 09-24-2020 End: 09-24-2020 Patient encounter procedure [facility] Start: 09-02-2020 End: 09-02-2020 Patient encounter procedure [facility] Procedures Date Procedure Procedure Detail Performing Clinician Start: 12-29-2024 Urnls dip stick/tabl et rgnt auto w/o microscopy David Sheriff MD Work Phone: Start: 11-25-2024 Urnls dip stick/tabl et rgnt auto w/o microscopy Jaye Eid PA-C Work Phone: Start: 10-16-2024 Adult depression screening assessment Viktor Ferrera MD Work Phone: Start: 06-18-2024 Mri spinal canal lum bar w/o contrast material Viktor Ferrera MD Work Phone: Start: 05-12-2024 Urnls dip stick/tabl et rgnt auto w/o microscopy Francisco Hightower APRN.CNP, NORMA Work Phone: Start: 03-24-2024 Urnls dip stick/tabl et rgnt auto w/o microscopy Francisco Hightower APRN.CNP DNP Work Phone: Start: 12-26-2023 3d rendering w/interp&postproc diff work station Kenan Pace MD Work Phone: Start: 12-26-2023 Mri brain brain stem w/o contrast material Kenan Pace MD Work Phone: Start: 10-10-2023 Adult depression screening assessment Jesse Bain PhD Work Phone: Start: 03-20-2022 Adult depression screening assessment Viktor Ferrera MD Work Phone: Start: 04-04-2021 Radex shoulder compl ete minimum 2 views Dinora Ismael Claudio PA-C Work Phone: Start: 03-19-2021 LACERATION REPAIR Beba Aguilera MD Work Phone: Start: 03-19-2021 End: 03-19-2021 Radex spine cervical 4 or 5 views Kary Aguilera MD Work Phone: Start: 10-04-2017 Adult depression screening assessment Abdullahi Conde PT Work Phone: Plan of Treatment Date Care Activity Detail Author Start: 03-19-2031 Urine microalbumin profile [facility] Start: 2029 RSV Vaccine (1 - 1-dose 75+ series) RSV Vaccine (1 - 1-dose 75+ series) [facility] Start: 04-26-2027 Screening for malignant neoplasm of colon [facility] Start: 03-08-2027 PROSTATE CANCER SCREENING DISCUSSION PROSTATE CANCER SCREENING DISCUSSION [facility] Start: 02-09-2026 PROSTATE CANCER SCREENING DISCUSSION PROSTATE CANCER SCREENING DISCUSSION [facility] Start: 10-30-2025 BP Controlled (<130/80) BP Controlled (<130/80) [facility] Start: 10-16-2025 Annual PCP Team Chronic Disease Visit Annual PCP Team Chronic Disease Visit [facility] Start: 10-16-2025 Anxiety Screening Anxiety Screening [facility] Start: 10-16-2025 Covid-19 Vaccine ( season) Covid-19 Vaccine ( season) [facility] Comment on above: Postponed from 03/02/2024 (Declined at t his time) Start: 10-16-2025 Depression Screening Depression Screening [facility] Start: 10-16-2025 Hepatitis C screening Hepatitis C Screening [facility] Comment on above: Postponed from 1972 (Declined at t his time) Start: 10-13-2025 Hepatitis B screening Urine Albumin:Creatinine Ratio [facility] Start: 10-13-2025 Hepatitis B surface antibody level LDL Cholesterol [facility] Start: 10-08-2025 BP Controlled (<130/80) BP Controlled (<130/80) [facility] Start: 05-22-2025 Annual PCP Team Chronic Disease Visit Annual PCP Team Chronic Disease Visit [facility] Start: 05-22-2025 BP Controlled (<130/80) BP Controlled (<130/80) [facility] Start: 05-21-2025 BP Controlled (<130/80) BP Controlled (<130/80) [facility] in Start: 04-21-2025 End: 04-21-2025 Patient encounter procedure 04/21/2025 8:00 AM EDT Office Visit [facility] [place] [address] [place] [id number] Viktor Ferrera MD [address] [place], [place] [id number] 6 mo f/u [facility] Comment on above: 6 mo f/u Start: 04-17-2025 End: 07-17-2025 CBC panel - Blood by Automated count COMPLETE BLOOD COUNT Lab Routine Essential hypertension Expected: 04/17/2025 (Approximate), Expires: 07/17/2025 [facility] Comment on above: Expected: 04/17/2025 (Approximate), Expi res: 07/17/2025 Start: 04-17-2025 End: 07-17-2025 Comprehensive metabolic 2000 panel - Serum or Plasma COMPREHENSIVE METABOLIC PANEL Lab Routine Essential hypertension Hyperlipidemia with target LDL less than 100 DM (diabetes mellitus), type 2 with neurological complications (HCC) Expected: 04/17/2025 (Approximate), Expires: 07/17/2025 [facility] Work Phone: Comment on above: Expected: 04/17/2025 (Approximate), Expi res: 07/17/2025 Start: 04-17-2025 End: 07-17-2025 Hemoglobin A1c in Blood HEMOGLOBIN A1C Lab Routine DM (diabetes mellitus), type 2 with neurological complications (HCC) Expected: 04/17/2025 (Approximate), Expires: 07/17/2025 [facility] Comment on above: Expected: 04/17/2025 (Approximate), Expi res: 07/17/2025 Start: 04-17-2025 End: 07-17-2025 Lipid 1996 panel - Serum or Plasma LIPID PANEL, FASTING Lab Routine Essential hypertension Hyperlipidemia with target LDL less than 100 DM (diabetes mellitus), type 2 with neurological complications (HCC) Expected: 04/17/2025 (Approximate), Expires: 07/17/2025 [facility] Comment on above: Expected: 04/17/2025 (Approximate), Expi res: 07/17/2025 Start: 04-14-2025 Hemoglobin [facility]c [facility] Start: 04-10-2025 Annual PCP Team Chronic Disease Visit Annual PCP Team Chronic Disease Visit [facility] Start: 04-09-2025 BP Controlled (<130/80) BP Controlled (<130/80) [facility] Start: 04-07-2025 Hepatitis B surface antibody level LDL Cholesterol [facility] Start: 03-04-2025 End: 03-04-2025 Patient encounter procedure 03/04/2025 10:30 AM EDT Office Visit Neurology [address] [place] [address] Mali Modi PA-C [address] [place] [address] 4 month follow up Neurology Comment on above: 4 month follow up Start: 03-02-2025 Influenza vaccination [facility] Start: 02-11-2025 Glaucoma screening Dilated Retinal Exam [facility] Start: 02-04-2025 End: 02-04-2025 Admission to same day surgery center 02/04/2025 9:00 AM EDT - 02/04/2025 10:45 AM EDT Surgery [address] [address] David Sheriff Jr., MD [address] [place], [place] [id number] LASER CYSTOLITHOLAPAXY BLADDER SIMPLE OR SMALL (LESS THAN 2.5 CM) ~ [facility] Comment on above: LASER CYSTOLITHOLAPAXY BLADDER SIMPLE OR SMALL (LESS THAN 2.5 CM) ~ [facility] Start: 02-04-2025 End: 02-04-2025 Litholapaxy smpl/sm <2.5 cm LASER CYSTOLITHOLAPAXY BLADDER SIMPLE OR SMALL (LESS THAN 2.5 CM) ~ [facility] Bladder calculus Benign prostatic hyperplasia, unspecified whether lower urinary tract symptoms present 02/04/2025 9:00 AM EDT [place] Start: 02-04-2025 Subsequent hospital visit by physician 02/04/2025 9:00 AM EDT Hospital Encounter [address] [address] David Sheriff Jr., MD [address] [place], [place] [id number] Bladder calculus [N21.0], Benign prostatic hyperplasia, unspecified whether lower urinary tract symptoms present [N40.0] [facility] Comment on above: Bladder calculus [N21.0], Benign prostat ic hyperplasia, unspecified whether lower urinary tract symptoms present [N40.0] Start: 02-04-2025 End: 02-04-2025 Trurl electrosurg rescj prostate bleed complete CYSTOSCOPY, RESECTION PROSTATE TRANSURETHRAL Bladder calculus Benign prostatic hyperplasia, unspecified whether lower urinary tract symptoms present 02/04/2025 9:00 AM EDT [place] Start: 01-30-2025 End: 01-30-2025 Patient encounter procedure 01/30/2025 9:00 AM EDT Office Visit [facility] [address] [place] [address] R01.1,echo,office calling,order in [facility] Comment on above: R01.1,echo,office calling,order in [facility] Start: 12-29-2024 Influenza vaccination Influenza Vaccine (#1) [facility] Comment on above: Postponed from 03/02/2024 (Declined at t his time) Start: 12-29-2024 End: 12-29-2024 Patient encounter procedure 12/29/2024 8:30 AM EDT Office Visit Urology [address] [place] [id number] David Sheriff Jr., MD [address] [place], [place] [address] cysto/ct prior 12/09/hematuria/ref by Sylvia Eid Urology Comment on above: cysto/ct prior 12/09/hematuria/ref by Sylvia Eid Start: 12-10-2024 End: 12-10-2024 Nursing evaluation of patient and report General Surgery Comment on above: Nurse visits 1 week f/u remove sutures NURSE: Sebaceous cys t on his back and sebaceous cyst on his right neck; Start: 12-09-2024 Cystourethroscopy CYSTO.PANENDO Procedures Routine Gross hematuria Expected: 12/09/2024 (Approximate) [facility] Comment on above: Expected: 12/09/2024 (Approximate) Start: 12-09-2024 End: 12-09-2024 Patient encounter procedure 12/09/2024 1:00 PM EDT Appointment Cat Scan [address] [place] [address] Gross hematuria [R31.0] Cat Scan Comment on above: Gross hematuria [R31.0] Start: 12-03-2024 End: 12-03-2024 Nursing evaluation of patient and report 12/03/2024 8:00 AM EDT Nurse Visit General Surgery [address] [place] [address] Wstr, Nurse Gens [facility] [address] [place] [address] Nurse visits 1 week f/u remove sutures General Surgery Comment on above: Nurse visits 1 week f/u remove sutures Start: 12-02-2024 End: 03-03-2025 Creatinine and Glomerular filtration rate.predicted panel - Serum, Plasma or Blood CREATININE BLD Lab Routine Gross hematuria Expected: 12/02/2024 (Approximate), Expires: 03/03/2025 [facility] Comment on above: Expected: 12/02/2024 (Approximate), Expi res: 03/03/2025 Start: 12-02-2024 End: 12-26-2025 CT Kidney WO and W contrast IV CT UROGRAM WO/W IVCON Radiology Routine Gross hematuria Expected: 12/02/2024 (Approximate), Expires: 12/26/2025 [facility] Comment on above: Expected: 12/02/2024 (Approximate), Expi res: 12/26/2025 Start: 11-26-2024 End: 11-26-2024 Patient encounter procedure General Surgery Comment on above: REMOVAL SEBACOUS GROWTH PROCEDURE: SKIN LESI ON -neck and SEBCEOUS CYST -back. Consent signed. [facility] 10/30/24. [facility] Start: 11-25-2024 End: 02-24-2025 Prostate specific Ag [Mass/volume] in Serum or Plasma PROSTATE-SPECIFIC ANTIGEN DIAGNOSTIC Lab Routine BPH associated with nocturia Elevated PSA Expected: 11/25/2024 (Approximate), Expires: 02/24/2025 [facility] Comment on above: Expected: 11/25/2024 (Approximate), Expi res: 02/24/2025 Start: 11-11-2024 End: 11-11-2024 Patient encounter procedure Urology Comment on above: 6 month f/u- Overactive Bladdder / R/S F ROM FRANCISCO HIGHTOWER / PATIENT AWARE OF CHANGE FU: 6 month, Overact rina Bladdder / R/S FROM FRANCISCO HIGHTOWER / PATIENT AWARE OF CHANGE. SJ Blaz: 05/12/24. [facility] Start: 11-10-2024 End: 11-10-2024 Patient encounter procedure 11/10/2024 9:30 AM EDT Office Visit Urology [address] [place] [address] Francisco Hightower APRN.MUSIC COORDINATOR, DNP [address] [place] [address] 6 month f/u- Overactive Bladdder Urology Comment on above: 6 month f/u- Overactive Bladdder Start: 10-30-2024 End: 10-30-2024 Patient encounter procedure 10/30/2024 9:30 AM EDT Office Visit General Surgery [address] [place] [address] Tricia Antonio MD [address] [place] [address] Sebaceous cyst [L72.3]; Skin lesion [L98.9] General Surgery Comment on above: Sebaceous cyst [L72.3]; Skin lesion [L98 .9] Start: 10-16-2024 End: 10-16-2024 Patient encounter procedure 10/16/2024 9:00 AM EDT Office Visit [facility] [address] [facility] [place] [address] Viktor Ferrera MD [address] [facility] [place] [address] 6 mo f/u [facility] Comment on above: 6 mo f/u Start: 10-14-2024 End: 10-14-2024 Patient encounter procedure 10/14/2024 9:00 AM EDT [facility] [address] [facility] [place] [address] Viktor Ferrera MD [address] [facility] [place] [address] 6 mo f/u [facility] Comment on above: 6 mo f/u Start: 10-09-2024 End: 01-08-2025 25-hydroxyvitamin D3 [Mass/volume] in Serum or Plasma VITAMIN D 25 HYDROXY Lab Routine Vitamin D deficiency Expected: 10/09/2024 (Approximate), Expires: 01/08/2025 [facility] Comment on above: Expected: 10/09/2024 (Approximate), Expi res: 01/08/2025 Start: 10-09-2024 Annual PCP Team Chronic Disease Visit Annual PCP Team Chronic Disease Visit [facility] Start: 10-09-2024 Anxiety Screening Anxiety Screening [facility] Start: 10-09-2024 BP Controlled (<130/80) BP Controlled (<130/80) [facility] Start: 10-09-2024 End: 01-08-2025 Comprehensive metabolic 2000 panel - Serum or Plasma COMPREHENSIVE METABOLIC PANEL Lab Routine Controlled type 2 diabetes mellitus without complication, without long-term current use of insulin (HCC) Essential hypertension Hyperlipidemia with target LDL less than 100 Expected: 10/09/2024 (Approximate), Expires: 01/08/2025 [facility] Comment on above: Expected: 10/09/2024 (Approximate), Expi res: 01/08/2025 Start: 10-09-2024 Covid-19 Vaccine () Covid-19 Vaccine () [facility] Comment on above: Postponed from 03/02/2023 (Declined at t his time) Start: 10-09-2024 Depression Screening Depression Screening [facility] Start: 10-09-2024 End: 01-08-2025 Hemoglobin A1c in Blood HEMOGLOBIN A1C Lab Routine Controlled type 2 diabetes mellitus without complication, without long-term current use of insulin (HCC) Expected: 10/09/2024 (Approximate), Expires: 01/08/2025 [facility] Comment on above: Expected: 10/09/2024 (Approximate), Expi res: 01/08/2025 Start: 10-09-2024 Hepatitis C screening Hepatitis C Screening [facility] Comment on above: Postponed from 1972 (Declined at t his time) Start: 10-09-2024 End: 01-08-2025 Lipid 1996 panel - Serum or Plasma LIPID PANEL BASIC Lab Routine Controlled type 2 diabetes mellitus without complication, without long-term current use of insulin (HCC) Essential hypertension Hyperlipidemia with target LDL less than 100 Expected: 10/09/2024 (Approximate), Expires: 01/08/2025 [facility] Comment on above: Expected: 10/09/2024 (Approximate), Expi res: 01/08/2025 Start: 10-09-2024 End: 01-08-2025 Microalbumin/Creatinine [Mass Ratio] in Urine ALBUMIN/CREATININE RATIO, URINE Lab Routine Controlled type 2 diabetes mellitus without complication, without long-term current use of insulin (HCC) Expected: 10/09/2024 (Approximate), Expires: 01/08/2025 [facility] Comment on above: Expected: 10/09/2024 (Approximate), Expi res: 01/08/2025 Start: 10-08-2024 End: 10-08-2024 Patient encounter procedure Neurology Comment on above: 6 month f/u [facility], memory loss- LO V 04/09/24 no changes, referral placed Start: 10-07-2024 Hepatitis B surface antibody level LDL Cholesterol [facility] Start: 10-07-2024 End: 10-07-2024 ambulatory 10/07/2024 10:30 AM EDT OT/PT/Speech Visit [facility] [address] [place] [address] Tiarra Leon PT [address] [place] [address] Urinary incontinence, unspecified type [R32] [facility] Comment on above: Urinary incontinence, unspecified type [ R32] Start: 10-06-2024 Hemoglobin A1c measurement HbA1C [facility] Start: 09-04-2024 End: 09-04-2024 ambulatory 09/04/2024 11:30 AM EST OT/PT/Speech Visit [facility] [address] [place] [address] Tiarra Leon, PT [address] [place] [address] Urinary incontinence, unspecified type [R32] [facility] Comment on above: Urinary incontinence, unspecified type [ R32] Start: 09-02-2024 Annual PCP Team Chronic Disease Visit Annual PCP Team Chronic Disease Visit [facility] Start: 09-02-2024 BP Controlled (<130/80) BP Controlled (<130/80) [facility] Start: 08-18-2024 End: 08-18-2024 ambulatory 08/18/2024 9:45 AM EST OT/PT/Speech Visit [facility] [address] [place] [address] Tiarra Leon, PT [address] [place] [address] Urinary incontinence, unspecified type [R32] [facility] Comment on above: Urinary incontinence, unspecified type [ R32] Start: 07-02-2024 Advance Directive Discussion Advance Directive Discussion [facility] Start: 07-02-2024 Medicare Advantage Annual Wellness Visit Medicare Advantage Annual Wellness Visit [facility] Start: 06-30-2024 End: 06-30-2024 ambulatory 06/30/2024 2:15 PM EST OT/PT/Speech Visit [facility] [address] [place] [address] Mario Glez, PT [address] [facility] [place] [address] M54.16 (ICD-10-CM) - Radiculopathy of lumbar region [facility] Comment on above: M54.16 (ICD-10-CM) - Radiculopathy of oziel mbar region Start: 06-23-2024 End: 06-23-2024 ambulatory 06/23/2024 2:15 PM EST OT/PT/Speech Visit [facility] [address] [place] [address] Mario Glez, PT [address] [place] [address] M54.16 (ICD-10-CM) - Radiculopathy of lumbar region [facility] Comment on above: M54.16 (ICD-10-CM) - Radiculopathy of oziel mbar region Start: 06-18-2024 End: 06-18-2024 Patient encounter procedure 06/18/2024 12:00 PM EST Appointment Radiology [address] [place] [address] Radiculopathy of lumbar region [M54.16] Radiology Comment on above: Radiculopathy of lumbar region [M54.16] Start: 06-18-2024 End: 06-18-2024 ambulatory 06/18/2024 7:45 AM EST OT/PT/Speech Visit [facility] [address] [place] [address] Mario Glez, PT [address] [facility] [place], [place] [id number] Varicose veins of both lower extremities with pain [I83.813] [facility] Comment on above: Varicose veins of both lower extremities with pain [I83.813] Start: 06-11-2024 End: 06-11-2024 ambulatory 06/11/2024 7:45 AM EST OT/PT/Speech Visit [facility] [address] [facility] [address] Mario Glez, PT [address] [place] [address] Varicose veins of both lower extremities with pain [I83.813] [facility] Comment on above: Varicose veins of both lower extremities with pain [I83.813] Start: 06-04-2024 End: 06-04-2024 ambulatory 06/04/2024 7:45 AM EST OT/PT/Speech Visit [facility] [address] [place] [address] Mario Glez, PT [address] [place] [address] M54.16 (ICD-10-CM) - Radiculopathy of lumbar region [facility] Comment on above: M54.16 (ICD-10-CM) - Radiculopathy of oziel mbar region Start: 05-28-2024 End: 05-28-2024 ambulatory 05/28/2024 9:15 AM EST OT/PT/Speech Visit [facility] [address] [facility] [place] [address] Mario Glez, PT [address] [place] [address] M54.16 (ICD-10-CM) - Radiculopathy of lumbar region [facility] Comment on above: M54.16 (ICD-10-CM) - Radiculopathy of oziel mbar region Start: 05-22-2024 End: 05-22-2024 Patient encounter procedure 05/22/2024 7:00 AM EST Office Visit [facility] [place] [address] [place] [address] Michelle Martin APRN.MUSIC COORDINATOR [address] [place] [address] Referred back to for severe neck pain - PT stated he cant help at this point [facility] [place] Comment on above: Referred back to PC for severe neck pain - PT stated he cant help at this point Start: 05-21-2024 End: 05-21-2024 ambulatory 05/21/2024 7:45 AM EST OT/PT/Speech Visit [facility] [address] [facility] [place] [address] Mario Glez, PT [address] [place] [address] M54.16 (ICD-10-CM) - Radiculopathy of lumbar region [facility] Comment on above: M54.16 (ICD-10-CM) - Radiculopathy of oziel mbar region Start: 05-14-2024 End: 05-14-2024 ambulatory 05/14/2024 7:45 AM EST OT/PT/Speech Visit [facility] [address] [place] [address] Mario Glez, PT [address] [place] [address] M54.16 (ICD-10-CM) - Radiculopathy of lumbar region [facility] Comment on above: M54.16 (ICD-10-CM) - Radiculopathy of oziel mbar region Start: 05-12-2024 End: 05-12-2024 Patient encounter procedure 05/12/2024 9:30 AM EST Office Visit Urology [address] [place] [address] Francisco Hightower APRN.MUSIC COORDINATOR, DNP [address] [place] [address] Overactive Bladdder, BPH Urology Comment on above: Overactive Bladdder, BPH Start: 05-09-2024 End: 05-09-2024 ambulatory 05/09/2024 7:45 AM EST OT/PT/Speech Visit [facility] [address] [place] [address] Mario Glez, PT [address] [place] [address] M54.16 (ICD-10-CM) - Radiculopathy of lumbar region [facility] Comment on above: M54.16 (ICD-10-CM) - Radiculopathy of oziel mbar region Start: 04-29-2024 End: 04-29-2024 ambulatory 04/29/2024 8:30 AM EDT OT/PT/Speech Visit [facility] [address] [place] [address] Mario Glez, PT [address] [place], [place] [id number] Radiculopathy of lumbar region [M54.16] [facility] Comment on above: Radiculopathy of lumbar region [M54.16] Start: 04-10-2024 End: 07-10-2024 Comprehensive metabolic 2000 panel - Serum or Plasma COMPREHENSIVE METABOLIC PANEL Lab Routine Essential hypertension Expected: 04/10/2024, Expires: 07/10/2024 [facility] Work Phone: Comment on above: Expected: 04/10/2024, Expires: Start: 04-10-2024 End: 07-10-2024 Hemoglobin A1c in Blood HEMOGLOBIN A1C Lab Routine DM (diabetes mellitus), type 2 with neurological complications (HCC) Expected: 04/10/2024, Expires: 07/10/2024 [facility] Work Phone: Comment on above: Expected: 04/10/2024, Expires: Start: 04-10-2024 End: 07-10-2024 Lipid 1996 panel - Serum or Plasma LIPID PANEL BASIC Lab Routine Hyperlipidemia with target LDL less than 100 Expected: 04/10/2024, Expires: 07/10/2024 [facility] Work Phone: Comment on above: Expected: 04/10/2024, Expires: 5 Start: 04-10-2024 End: 07-10-2024 Prostate Specific Ag Free [Mass/volume] in Serum or Plasma PROSTATE SPECIFIC ANTIGEN, FREE Lab Routine BPH associated with nocturia Expected: 04/10/2024, Expires: 07/10/2024 [facility] Work Phone: Comment on above: Expected: 04/10/2024, Expires: Start: 04-10-2024 End: 04-10-2024 Patient encounter procedure 04/10/2024 9:20 AM EDT Office Visit [facility] [place] [address] [place], [place] [address] Viktor Ferrera MD [address] [place], [place] [phone] FOLLOW UP/ HCC GAP CLOSURE [facility] Comment on above: FOLLOW UP/ HCC GAP CLOSURE Start: 04-09-2024 End: 04-09-2024 Patient encounter procedure Neurology Comment on above: follow up after testing follow up after test ing (MRI Brain, Neurocog testing) Start: 04-08-2024 Hemoglobin A1c [facility] Start: 04-04-2024 Annual PCP Team Chronic Disease Visit Annual PCP Team Chronic Disease Visit [facility] Start: 04-04-2024 BP Controlled (<130/80) BP Controlled (<130/80) [facility] Start: 03-28-2024 Hepatitis B screening Urine Albumin:Creatinine Ratio [facility] Start: 03-28-2024 Hepatitis B surface antibody level LDL Cholesterol [facility] Start: 03-24-2024 End: 03-24-2024 Patient encounter procedure 03/24/2024 10:30 AM EDT Office Visit Urology [address] [place] [address] Francisco Hightower APRN.MUSIC COORDINATOR, DNP [address] [facility] [place] [address] 3 month f/u-BPH w/ elevated PSA Urology Comment on above: 3 month f/u-BPH w/ elevated PSA Start: 03-11-2024 End: 06-10-2024 Prostate Specific Ag Free [Mass/volume] in Serum or Plasma PROSTATE SPECIFIC ANTIGEN, FREE Lab Routine Elevated PSA Expected: 03/11/2024, Expires: 06/10/2024 [facility] Comment on above: Expected: 03/11/2024, Expires: Start: 03-02-2024 Covid-19 Vaccine () Covid-19 Vaccine () [facility] Start: 03-02-2024 Influenza vaccination [facility] Start: 02-05-2024 End: 02-05-2024 Patient encounter procedure 02/05/2024 3:00 PM EDT Office Visit [facility] Nadja) [address] [place], [place] [address] Jesse Bain, PhD [address] [facility], [facility] [address] [place] [address] 60 min. Follow up. In person [facility]) Comment on above: 60 min. Follow up. In person Start: 01-24-2024 End: 01-24-2024 Patient encounter procedure [facility] (Justin) Comment on above: Testing Memory. Testing. Memory Start: 01-11-2024 End: 04-11-2024 25-hydroxyvitamin D3 [Mass/volume] in Serum or Plasma VITAMIN D 25 HYDROXY Lab Routine Vitamin D deficiency Expected: 01/11/2024, Expires: 04/11/2024 [facility] Work Phone: Comment on above: Expected: 01/11/2024, Expires: Start: 12-26-2023 End: 12-26-2023 Patient encounter procedure 12/26/2023 3:00 PM EDT Appointment Radiology [address] [place] [address] Memory loss [R41.3]; Cognitive decline [R41.89] Radiology Comment on above: Memory loss [R41.3]; Cognitive decline [ R41.89] Start: 12-24-2023 End: 12-24-2023 Patient encounter procedure 12/24/2023 11:00 AM EDT Office Visit Neurology [address] [place] [address] Kenan Pace Jr., MD [address] [phone] memory changes Neurology Comment on above: memory changes Start: 12-10-2023 End: 12-10-2023 Patient encounter procedure 12/10/2023 11:00 AM EDT Office Visit Urology [address] [place] [address] Francisco Hightower APRN.MUSIC COORDINATOR, DNP [address] [place] [place], [place] [address] BPH associated with nocturia [N40.1, R35.1] Urology Comment on above: BPH associated with nocturia [N40.1, R35 .1] Start: 09-26-2023 Hemoglobin A1c [facility] Start: 09-20-2023 ANNUAL PCP TEAM CHRONIC DISEASE VISIT ANNUAL PCP TEAM CHRONIC DISEASE VISIT [facility] Start: 09-20-2023 HEPATITIS C SCREENING HEPATITIS C SCREENING [facility] Comment on above: Postponed from 1972 (Declined at t his time) Start: 09-20-2023 Hepatitis C screening Hepatitis C Screening [facility] Comment on above: Postponed from 1972 (Declined at t his time) Start: 09-13-2023 Hepatitis B surface antibody level LDL CHOLESTEROL [facility] Start: 08-31-2023 End: 09-14-2023 COVID & INFLUENZA A/B & RSV NAAT, ROUTINE [facility] Work Phone: Comment on above: Expected: 08/31/2023, Expires: Start: 07-02-2023 Advance Directive Discussion Advance Directive Discussion [facility] Start: 07-02-2023 Depression Assessment Depression Assessment [facility] Start: 05-16-2023 Glaucoma screening Dilated Retinal Exam [facility] Start: 05-16-2023 Hepatitis C antibody, confirmatory test DILATED RETINAL EXAM [facility] Start: 03-22-2023 End: 05-22-2023 ALBUMIN/CREAT RATIO RND UR ALBUMIN/CREAT RATIO RND UR Lab Routine DM (diabetes mellitus), type 2 with neurological complications (HCC) Expected: 03/22/2023 (Approximate), Expires: 05/22/2023 [facility] Work Phone: Comment on above: Expected: 03/22/2023 (Approximate), Expi res: 05/22/2023 Start: 03-22-2023 End: 05-22-2023 Comprehensive metabolic 2000 panel - Serum or Plasma COMP METABOLIC PANEL Lab Routine DM (diabetes mellitus), type 2 with neurological complications (HCC) Expected: 03/22/2023 (Approximate), Expires: 05/22/2023 [facility] Work Phone: Comment on above: Expected: 03/22/2023 (Approximate), Expi res: 05/22/2023 Start: 03-22-2023 End: 05-22-2023 Hemoglobin A1c in Blood HGB A1C Lab Routine DM (diabetes mellitus), type 2 with neurological complications (HCC) Expected: 03/22/2023 (Approximate), Expires: 05/22/2023 [facility] Work Phone: Comment on above: Expected: 03/22/2023 (Approximate), Expi res: 05/22/2023 Start: 03-22-2023 End: 05-22-2023 Lipid 1996 panel - Serum or Plasma LIPID PANEL BASIC Lab Routine DM (diabetes mellitus), type 2 with neurological complications (HCC) Expected: 03/22/2023 (Approximate), Expires: 05/22/2023 [facility] Work Phone: Comment on above: Expected: 03/22/2023 (Approximate), Expi res: 05/22/2023 Start: 03-22-2023 End: 05-22-2023 PSA/PROSTSPECAG SCRN PSA/PROSTSPECAG SCRN Lab Routine Elevated PSA Expected: 03/22/2023 (Approximate), Expires: 05/22/2023 [facility] Work Phone: Comment on above: Expected: 03/22/2023 (Approximate), Expi res: 05/22/2023 Start: 03-20-2023 Adult depression screening assessment DEPRESSION SCREENING [facility] Start: 03-20-2023 ANNUAL PCP TEAM CHRONIC DISEASE VISIT ANNUAL PCP TEAM CHRONIC DISEASE VISIT [facility] Start: 03-20-2023 BP CONTROLLED (<130/80) BP CONTROLLED (<130/80) [facility] in Start: 03-15-2023 Hemoglobin A1c/Hemoglobin.total in Blood HBA1C [facility] Start: 03-08-2023 Hepatitis B screening URINE ALBUMIN:CREATININE RATIO [facility] Start: 03-08-2023 Hepatitis B surface antibody level LDL CHOLESTEROL [facility] Start: 03-02-2023 Covid-19 Vaccine ( season) Covid-19 Vaccine () [facility] Start: 03-02-2023 Influenza vaccination Influenza Vaccine (#1) [facility] Start: 12-29-2022 Influenza vaccination INFLUENZA (#1) [facility] Comment on above: Postponed from 03/02/2022 (Declined at t his time) Start: 09-17-2022 End: 11-17-2022 Comprehensive metabolic 2000 panel - Serum or Plasma COMP METABOLIC PANEL Lab Routine DM (diabetes mellitus), type 2 with neurological complications (HCC) Hyperlipidemia with target LDL less than 100 Expected: 09/17/2022 (Approximate), Expires: 11/17/2022 [facility] Work Phone: Comment on above: Expected: 09/17/2022 (Approximate), Expi res: 11/17/2022 Start: 09-17-2022 End: 11-17-2022 Hemoglobin A1c in Blood HGB A1C Lab Routine DM (diabetes mellitus), type 2 with neurological complications (HCC) Expected: 09/17/2022 (Approximate), Expires: 11/17/2022 [facility] Work Phone: Comment on above: Expected: 09/17/2022 (Approximate), Expi res: 11/17/2022 Start: 09-17-2022 End: 11-17-2022 Lipid 1996 panel - Serum or Plasma LIPID PANEL BASIC Lab Routine Hyperlipidemia with target LDL less than 100 Expected: 09/17/2022 (Approximate), Expires: 11/17/2022 [facility] Work Phone: Comment on above: Expected: 09/17/2022 (Approximate), Expi res: 11/17/2022 Start: 09-08-2022 COLORECTAL CANCER SCREENING COLORECTAL CANCER SCREENING [facility] Start: 09-08-2022 FECAL OCCULT BLOOD FECAL OCCULT BLOOD [facility] Start: 09-08-2022 Screening for malignant neoplasm of colon [facility] Start: 09-05-2022 Hemoglobin A1c/Hemoglobin.total in Blood HBA1C [facility] Start: 08-31-2022 ANNUAL PCP TEAM CHRONIC DISEASE VISIT ANNUAL PCP TEAM CHRONIC DISEASE VISIT [facility] Start: 08-31-2022 Hepatitis B surface antibody level LDL CHOLESTEROL [facility] Start: 07-02-2022 ADVANCE DIRECTIVE DISCUSSION ADVANCE DIRECTIVE DISCUSSION [facility] Start: 03-03-2022 Hemoglobin A1c/Hemoglobin.total in Blood HBA1C [facility] Start: 03-02-2022 Influenza vaccination [facility] Start: 02-18-2022 Hepatitis C antibody, confirmatory test DILATED RETINAL EXAM [facility] Start: 12-29-2021 Influenza vaccination INFLUENZA (#1) [facility] Comment on above: Postponed from 03/02/2021 (Declined at t his time) Start: 07-06-2021 3 comp foot exam completed DIABETIC FOOT EXAM [facility] Start: 07-06-2021 Diabetic foot examination Diabetic Foot Exam [facility] Start: 07-02-2021 ADVANCE DIRECTIVE DISCUSSION ADVANCE DIRECTIVE DISCUSSION [facility] Start: 07-02-2021 DEPRESSION ASSESSMENT DEPRESSION ASSESSMENT [facility] Start: 06-29-2021 Hepatitis B screening URINE ALBUMIN:CREATININE RATIO [facility] Start: 03-02-2021 Influenza vaccination Flu vaccine (#1) [facility] Work Phone: Start: 02-24-2021 COVID-19 VACCINE (3 - Booster for Pfizer series) COVID-19 VACCINE (3 - Booster for Pfizer series) [facility] Start: 11-19-2020 COVID-19 VACCINE (3 - Booster for Pfizer series) COVID-19 VACCINE (3 - Booster for Pfizer series) [facility] Start: 11-19-2020 Covid-19 Vaccine (3 - Pfizer series) Covid-19 Vaccine (3 - Pfizer series) [facility] Start: 05-21-2020 BP CONTROLLED (<130/80) BP CONTROLLED (<130/80) [facility] Start: 2019 PNEUMOVAX AGE 65 AND OVER WITH 5YR LOOKBACK (#1) PNEUMOVAX AGE 65 AND OVER WITH 5YR LOOKBACK (#1) [facility] Start: 10-04-2018 Adult depression screening assessment DEPRESSION SCREENING [facility] Start: 2014 Hepatitis B Vaccine (1 of 3 - Risk 3-dose series) Hepatitis B Vaccine (1 of 3 - Risk 3-dose series) [facility] Start: 2014 RSV Vaccine (1 - 1-dose 60+ series) RSV Vaccine (1 - 1-dose 60+ series) [facility] Start: 2004 SHINGRIX VACCINE (1 of 2) SHINGRIX VACCINE (1 of 2) [facility] Start: 1999 COLOGUARD (FIT-DNA) COLOGUARD (FIT-DNA) [facility] Start: 1999 Colonoscopy COLONOSCOPY [facility] Start: [address] COLONOGRAPHY [facility] Start: 1999 Screening for malignant neoplasm of colon [facility] Start: 1999 SIGMOIDOSCOPY SIGMOIDOSCOPY [facility] Start: 1973 Pneumococcal Vaccine: 50+ (1 of 2 - PCV) Pneumococcal Vaccine: 50+ (1 of 2 - PCV) [facility] Start: 1972 HEPATITIS C SCREENING HEPATITIS C SCREENING [facility] Start: 1960 Pneumococcal Vaccine: 65+ (1 - PCV) Pneumococcal Vaccine: 65+ (1 - PCV) [facility] Start: 1960 Pneumococcal Vaccine: 65+ (1 of 2 - PCV) Pneumococcal Vaccine: 65+ (1 of 2 - PCV) [facility] Start: 1960 PNEUMOCOCCAL: 65+ (1 - PCV) PNEUMOCOCCAL: 65+ (1 - PCV) [facility] Bacteria identified in Urine by Culture BACTERIAL CULTURE, URINE Microbiology Routine Gross hematuria 11/25/2024 10:35 AM EDT [facility] COLOGUARD COLOGUARD Lab Ro utine Screening for colon cancer Ordered: 04/10/2024 [facility] Work Phone: Comment on above: Ordered: 04/10/2024 CT Kidney WO and W contrast IV CT UROGRAM WO/W IVCON Radiology Routine Gross hematuria 12/09/2024 1:48 PM EDT [facility] Work Phone: CYTOLOGY NON-HEALTH ADMINISTRATOR CYTOLOGY NON-GY N Lab Routine Gross hematuria 11/25/2024 10:35 AM EDT [facility] End: 01-28-2026 Echocardiography ECHO Cardiology Routine Heart murmur 1 Occurrences starting 01/28/2025 until 01/28/2026 [facility] Work Phone: Comment on above: 1 Occurrences starting 01/28/2025 until 01/28/2026 Hemoglobin.gastroint estina l.lower [Presence] in Stool by Immunoassay FECAL OCCULT BLOOD TEST Lab Routine Screening for colon cancer Ordered: 09/19/2022 [facility] Work Phone: Comment on above: Ordered: 09/19/2022 End: 01-22-2025 MR Brain WO contrast MRI BRAIN WO IVCON Radiology Routine Memory loss Cognitive decline 1 Occurrences starting 12/24/2023 until 01/22/2025 [facility] Work Phone: Comment on above: 1 Occurrences starting 12/24/2023 until 01/22/2025 End: 07-10-2025 MR Lumbar spine WO contrast MRI LUMBAR SPINE WO IVCON Radiology Routine Radiculopathy of lumbar region 1 Occurrences starting 06/10/2024 until 07/10/2025 [facility] Work Phone: Comment on above: 1 Occurrences starting 06/10/2024 until 07/10/2025 POST VOID RESIDUAL POST VOID RES IDUAL Procedures Routine BPH associated with nocturia Elevated PSA OAB (overactive bladder) Ordered: 03/24/2024 [facility] Work Phone: Comment on above: Ordered: 03/24/2024 POST VOID RESIDUAL POST VOID RES IDUAL Procedures Routine BPH associated with nocturia Elevated PSA Ordered: 12/10/2023 [facility] Work Phone: Comment on above: Ordered: 12/10/2023 POST VOID RESIDUAL POST VOID RES IDUAL Procedures Routine BPH associated with nocturia OAB (overactive bladder) Ordered: 05/12/2024 [facility] Work Phone: Comment on above: Ordered: 05/12/2024 POST VOID RESIDUAL POST VOID RES IDUAL Procedures Routine BPH associated with nocturia OAB (overactive bladder) Elevated PSA Screening for genitourinary condition Ordered: 11/25/2024 [facility] Work Phone: Comment on above: Ordered: 11/25/2024 Urinalysis complete panel - Urine URINALYSIS, WITH MICROSCOPIC Lab Routine Urgency of urination BPH associated with nocturia OAB (overactive bladder) 05/12/2024 10:30 AM EST [facility] Immunizations Immunization Date Immunization Notes Care Provider Ta ellington 03-19-2021 tetanus toxoid, redu zhao diphtheria toxoid, and acellular pertussis vaccine, adsorbed Kary Aguilera MD Work Phone: [facility] 09-24-2020 COVID-19 vaccine, ag e 12+ yr (PFIZER-BIONTECH - PURPLE TOP) Abdullahi Conde PT Work Phone: [facility] 09-02-2020 COVID-19 vaccine, ag e 12+ yr (PFIZER-BIONTECH - PURPLE TOP) Abdullahi Conde PT Work Phone: [facility] 03-26-2017 influenza virus vaccine, unspecified formulation Michelle Saleem [facility] 03-03-2017 tetanus toxoid, redu zhao diphtheria toxoid, and acellular pertussis vaccine, adsorbed Abdullahi Conde PT Work Phone: [facility] 01-19-2008 diphtheria and tetan us toxoids, adsorbed for pediatric use Abdullahi Conde PT Work Phone: [facility] Work Phone: 02-14-2002 tuberculin skin test ; purified protein derivative solution, intradermal Francisco Hightower APRN.MUSIC COORDINATOR, DNP Work Phone: [facility] 07-19-1999 diphtheria and tetan us toxoids, adsorbed for pediatric use Abdullahi Conde PT Work Phone: [facility] Work Phone: Payers Date Payer Category Payer Medicare AETNA MEDICARE A ETNA MEDICARE PPO [id number] 2021-Present [phone] [address] [place] [address] [facility] [id number] 2021 Medicare (Managed Care) AETISABELLA SCHULER [id number] 2021 Medicare [id number] 2019 Medicare [id number] 1955 Unknown [id number] 1955 Unknown [id number] Medicare [id number] Social History Date Type Detail Facility Start: 03-19-[facility]21 [facility] Work Phone: Start: 1955 Sex Assigned At Not on file [facility] Work Phone: Start: 05-19-2011 [facility] Start: 08-31-2021 End: 01-27-2025 Alcohol intake Current drinker of alcohol (finding) [facility] Start: 03-05-2021 End: 03-20-2022 Exposure to SARS-CoV-2 (event) Not sure [facility] Start: 05-19-2011 Tobacco use and exposure Smokeless tobacco non-user [facility] Work Phone: Start: 09-19-2022 End: 04-04-2023 History of Social function [facility] Work Phone: Start: 09-19-2022 End: 04-04-2023 Tobacco use panel [facility] Work Phone: Adult Depression Screening Assessment 0 [facility] Work Phone: Start: 12-24-2023 End: 10-16-2024 Alcohol intake Ex-drinker (finding) [facility] Start: 10-30-2024 Alcohol Comment Occassionally [facility] Medical Equipment Procedure Code Equipment Code Equipment Origin al Text Equipment Identifier Dates Test blood sugar(s) one times daily. Dx: 250.02. Insulin: No [id number], [id number] Start: 06-26-2014 End: 04-10-2024 Comment on above: Test blood sugar(s) one times daily. Dx: 250.02. Insulin: No Functional Status Date Assessment Result Facility 01-25-2015 Are you deaf, or do you have serious difficulty hearing No 01/25/2015 1:08 PM Td Valdovinos No [facility] 01-25-2015 Are you blind, or do you have serious difficulty seeing, even when wearing glasses No 01/25/2015 1:08 PM Td Valdovinos No [facility] 01-25-2015 Do you have serious difficulty walking or climbing stairs No 01/25/2015 1:08 PM Td Valdovinos No [facility] 01-25-2015 Do you have difficul ty dressing or bathing No 01/25/2015 1:08 PM EDT Dean Td No [facility] 01-25-2015 Because of a physica l, mental, or emotional condition, do you have difficulty doing errands alone such as visiting a physician's office or shopping No 01/25/2015 1:08 PM EDT [facility] T[facility] No [facility] Mental Status Date Assessment Result Facility 01-25-2015 Because of a physica l, mental, or emotional condition, do you have serious difficulty concentrating, remembering, or making decisions No 01/25/2015 1:08 PM EDT [facility] T[facility] No [facility] Clinical Notes 04-28-2015 to 02-02-2025 Telephone Encounter - Carolann Moore LPN - 02/02/2025 11:59 AM EDTTelephone Encounter - Carolann Moore LPN - 02/02/2025 11:59 AM Kristen العلي LPN - 01/27/2025 10:43 AM EDT Note Date & Type Note Facility 02-02-2025 Telephone encounter Note Prescription Refill Information The patient has been identified by name and date of : Yes Caregiver verified no other encounters exist for this prescription request: Yes Caregiver confirmed with patient/requestor that no other refills are due, in the near future, with this provider at this time: Yes The last office visit in the department: 10/08/24 Does the patient have a future office visit with this provider/department: Yes 03/04/25 Requested Prescriptions Pending Prescriptions Disp Refills donepezil (ARICEPT) 5 mg tablet [Pharmacy Med Name: DONEPEZIL HCL 5 MG TABLET] 90 tablet 1 Sig: TAKE 1 TABLET BY MOUTH EVERYDAY AT BEDTIME Carolann Moore LPN February 02, 2025 12:04 PM [facility] 02-02-2025 Miscellaneous Notes Prescription Refill Information The patient has been identified by name and date of : Yes Caregiver verified no other encounters exist for this prescription request: Yes Caregiver confirmed with patient/requestor that no other refills are due, in the near future, with this provider at this time: Yes The last office visit in the department: 10/08/24 Does the patient have a future office visit with this provider/department: Yes 03/04/25 Requested Prescriptions Pending Prescriptions Disp Refills donepezil (ARICEPT) 5 mg tablet [Pharmacy Med Name: DONEPEZIL HCL 5 MG TABLET] 90 tablet 1 Sig: TAKE 1 TABLET BY MOUTH EVERYDAY AT BEDTIME Carolann Moore LPN February 02, 2025 12:04 PM documented in this encounter [facility] 01-29-2025 Telephone encounter Note LVM w/ date, time, location, & prep for echo. MDS/CDL [facility] 01-29-2025 Miscellaneous Notes LVM w/ date, time, location, & prep for echo. MDS/CDL documented in this encounter [facility] 01-28-2025 Telephone encounter Note Cindy from [facility] calling back to state to disregard request for ECHO order. A surgical provider there has ordered this. Will close this encounter. Penny Woods RN [facility] 01-28-2025 Miscellaneous Notes Cindy from [facility] calling back to state to disregard request for ECHO order. A surgical provider there has ordered this. Will close this encounter. Penny Woods RN Cindy from [facility] calling patient had pre op done was found to have heart murmur. Asking for PCP to order ECHO to evaluate this please. Patient is scheduled for surgery on 02/04/2025. Please advise documented in this encounter [facility] 01-28-2025 Telephone encounter Note Cindy from [facility] calling patient had pre op done was found to have heart murmur. Asking for PCP to order ECHO to evaluate this please. Patient is scheduled for surgery on 02/04/2025. Please advise [facility] 01-27-2025 Telephone encounter Note Mr. Sanchez was seen in [facility] today and a murmur was heard on exam. Patient denies any history of murmur in the past. This was reviewed with Dr. Vargas of anesthesia, and he asks that patient get an Echo prior to surgery to assess. There is no cardiac testing in [facility] or [facility] Everywhere. Please feel free to reach out with any questions or concerns. Thank you. Abiola Sorto APRN.UJ Pre-Anesthesia Testing [phone] [facility] Work Phone: 01-27-2025 Miscellaneous Notes Mr. Sanchez was seen in [facility] today and a murmur was heard on exam. Patient denies any history of murmur in the past. This was reviewed with Dr. Vargas of anesthesia, and he asks that patient get an Echo prior to surgery to assess. There is no cardiac testing in [facility] or [facility] Everywhere. Please feel free to reach out with any questions or concerns. Thank you. Abiola Sorto APRN.CNP Pre-Anesthesia Testing [phone] documented in this encounter [facility] 01-27-2025 Note HNO ID: [id number] Author: KRISTEN SHELTON LPN Service: ? Author Type: LICENSED NURSE Type: Progress Notes Filed: 01/27/2025 11:01 Note Text: Patient presented to clinic that he feels like a stitch remains. Plane Tender notified. The site back was assessed and one mattress suture remained. Incision line was clean, dry and intact. Edges were well approximated. No dressing required. No open areas and skin looks good. Kristen Shelton LPN [facility] 01-27-2025 History of Present illness Narrative Patient presented to clinic that he feels like a stitch remains. Plane Tender notified. The site back was assessed and one mattress suture remained. Incision line was clean, dry and intact. Edges were well approximated. No dressing required. No open areas and skin looks good. Kristen Shelton LPN documented in this encounter [facility] 01-27-2025 Note HNO ID: [id number] Author: BRANDO TAYLOR APRN.JU Service: ? Author Type: Nurse Practitioner Type: Progress Notes Filed: 01/27/2025 08:25 Note Text: CC IBIS Please review with anesthesia to see if any testing needed. + heart murmur noted on exam. This is new to patient. Pre-op exam see note for medical conditions which may affect franky-operative course that were addressed at today's visit. BPH associated with nocturia Surgery scheduled 02/04/2025 Bladder calculus Surgery scheduled 02/04/2025 DM (diabetes mellitus), type 2 with neurological complications (HCC) Metformin-instructed to hold DOS 09/2024 A1C 6.7% HTN (hypertension) [id number] to hold DOS Amlodipine-instructed to take DOS Hyperlipidemia with target LDL less than 100 Statin-Instructed to continue perioperatively 09/2024 lipid panel reviewed in [facility] Gastroesophageal reflux disease without esophagitis Occasional No medication + hiatal hernia-sometimes feel like food is getting stuck. DVT (deep venous thrombosis) (HCC) H/O remote DVT- Heart murmur Heart murmur noted on exam. Patient has never known of heart murmur. No echo in epic. Patient denies syncope, near syncope, chest pain or shortness of breath. [facility] 01-27-2025 History of Present illness Narrative CC IBIS Please review with anesthesia to see if any testing needed. + heart murmur noted on exam. This is new to patient. Pre-op exam see note for medical conditions which may affect franky-operative course that were addressed at today's visit. BPH associated with nocturia Surgery scheduled 02/04/2025 Bladder calculus Surgery scheduled 02/04/2025 DM (diabetes mellitus), type 2 with neurological complications (HCC) Metformin-instructed to hold DOS 09/2024 A1C 6.7% HTN (hypertension) [id number] to hold DOS Amlodipine-instructed to take DOS Hyperlipidemia with target LDL less than 100 Statin-Instructed to continue perioperatively 09/2024 lipid panel reviewed in [facility] Gastroesophageal reflux disease without esophagitis Occasional No medication + hiatal hernia-sometimes feel like food is getting stuck. DVT (deep venous thrombosis) (HCC) H/O remote DVT- Heart murmur Heart murmur noted on exam. Patient has never known of heart murmur. No echo in epic. Patient denies syncope, near syncope, chest pain or shortness of breath. documented in this encounter [facility] 01-27-2025 Instructions Brando Taylor APRN.CNP - 01/27/2025 8:11 AM EDT PATIENT PREOPERATIVE INSTRUCTIONS David Sheriff Jr* has scheduled you for your procedure at this surgery center: [facility]: [phone], [address] [place], [place] [address] Please read below carefully for your personalized instructions. Date of Surgery:02/04/2025 Arrival Time for Surgery: Your surgeon's office will provide you with your arrival time for surgery if they have not done so already. If you do not have your arrival time for surgery by the afternoon the day before your surgery you can call the surgeon's office. If you are scheduled for a Sunday surgery you can call the Sunday before. -Please be aware that emergency situations arise, which may delay or change your surgical time. If this happens, your surgeon's office will notify you as soon as possible and regret any inconvenience. Dietary Restrictions: - No solid food after midnight. - Between midnight and four hours prior to your surgery time, you may have 12 ounces of clear liquids (water, apple juice, carbonated beverages, Gatorade, black coffee or tea) unless your surgeon specifies otherwise Medications: Pre Surgery Med Instructions Medication instructions albuterol HFA (VENTOLIN HFA) 90 mcg/actuation inhaler Use as needed and bring day of surgery amLODIPine (NORVASC) 10 mg tablet If you normally take this medication in the morning, it is ok to take the morning of surgery with a sip of water. atorvastatin (LIPITOR) 20 mg tablet Continue as prescribed. cholecalciferol, Vitamin D3, (VITAMIN D3) 1,250 mcg (50,000 unit) cap capsule Continue as prescribed. cyclobenzaprine (FLEXERIL) 5 mg tablet Continue as prescribed. donepezil (ARICEPT) 5 mg tablet Continue as prescribed. gabapentin (NEURONTIN) 300 mg capsule Continue as prescribed. metFORMIN (GLUCOPHAGE) 500 mg tablet DO NOT TAKE THE MORNING OF SURGERY. tamsulosin (FLOMAX) 0.4 mg Continue as prescribed. trospium (SANCTURA) 20 mg tablet Continue as prescribed. Valsartan-hydroCHLOROthiazide (DIOVAN HCT) 80-12.5 mg per tablet DO NOT TAKE THE MORNING OF SURGERY. Blood pressure medications See med list for instructions Take beta twila day of surgery Do not take TOÑA or ARB medications day of surgery Weight loss medications Sympathomimetics such as Adipex-P (Phentermine): Stop 4 days before surgery. Contrave (Naltrexone/Bupropion) Hold 2-3 days. Qsymia (Phentermine/Topiramate - Please contact your prescribing provider for Pre op directions. ( depending on the patients dose this medication may need tapered off. They should get pre op directions from their prescribing provider.) GLP-1 Agonists (oral and injectables) Hold 7 days. Blood Thinning Medications: - Stop NSAIDS (Ibuprofen, Advil, Aleve, Motrin, Celebrex, Mobic, etc.) 7 days before surgery, as directed by your surgeon. - You may take Tylenol (Acetaminophen) or any of your current prescribed pain medications that do not contain aspirin or NSAIDS as needed. - If you take any of the following blood thinners, please contact your surgeon and the physician who prescribes it for you in order to get perioperative instructions as soon as possible Blood thinners: Aspirin,Coumadin, Plavix, Eliquis, Pradaxa, Xarelto, Lovenox, Brilinta, Effient, Savaysa, etc. Supplements - Stop Vitamin E, fish oil, Ginko, [place]'s Wort, flax seed oil, multivitamins, CBD oil, marijuana and other over the counter herbals and dietary supplements 7 days before surgery. This would not apply to cancer patients who are prescribed Marinol or any other prescription form of marijuana or CBD. If you are taking Phentermine please hold 4 days prior to surgery. Diabetes Medications Preoperative Instructions for Patients with Diabetes Mellitus: Please follow up with the provider that manages your diabetes and how to prepare you for surgery. Do not take the morning of surgery; Metformin, Actos/Pioglitazone and Amaryl/Glimepiride, Linagliptin ( Tradjenta) For the following Medications, please HOLD 2 DAYS PRIOR TO SURGERY: Glucotrol/Glipizide, Januvia/Sitagliptin, Glyburide, Prandin/Repaglinide, Starlix/Nateglinide, Symlin/Pramlintide, Kazano ( Alogliptin/Metformin) For the following Medications, please HOLD 3 DAYS PRIOR TO SURGERY: Canagliflozin/Invokana, Dapagliflozin/Farxiga ,Empagliflozin/Jardiance, Invokamet/canagliflozin and metformin, Xigduo XR/ dapagliglozin and metformin, Glyxambi/ empagliflozin and metformin, Syndardy/ empagliflozin and metformin For the following Medications, please HOLD 4 DAYS PRIOR TO SURGERY: Ertugliflozin/Steglatro For the following Medications, please HOLD 7 DAYS PRIOR TO SURGERY: GLP-1 AGONIST: Adlyxin (lixisenatide), Bydureon BCise (exenatide suspension), Byetta (exenatide), Mounjaro (tirzepatide), Ozempic(semaglutide injection) Tanzeum (albiglutide), Trulicity (dulaglutide), Victoza (liraglutide), Wegovy (semaglutide), Saxenda (liraglutide),Xultophy (degludec/liraglutide) . Oral form- Rybelsus (semaglutide tablets) Insulin Medication Instructions: Please follow up with the provider that manages your Insulin and how to prepare you for surgery. It is recommended ALL Pre-Op patients and Endoscopy patients hold all GLP-1 agonists for 7 days prior to surgery. Pain medications Approved pain medications can be taken the morning of surgery with a sip of water. Erectile dysfunction medications If you take any medications for erectile dysfunction-Cialis (Tadalafil), Levitra, Staxyn (Vardenafil) Viagra (Sildenenafil please do not take these for 48 hours before surgery. If you start any new medications after today's visit, please contact the surgeon's office. Important Reminders: - If you use CPAP/BIPAP, bring the machine with you to the hospital if you are scheduled to stay over night. - If you are prescribed inhalers for breathing, continue using them AND bring them to the surgery center. - Candy, mints, gum and tobacco products are NOT permitted the morning of surgery. - Hearing aids, dentures and glasses may be worn the morning of surgery. - NO jewelry, body piercings, makeup, hairpins or contacts are to be worn the day of surgery. - NO lotion, creams, powders or deodorants on the skin the day of surgery - You will need to have someone else (Family or friend) drive you home once discharged from the hospital. You cannot take a cab or Uber. You are not allowed to drive yourself home after surgery. -You will need an adult(over the age of 18) to stay with you for the first 24 hours post surgery or your surgery may be cancelled. Please speak with your surgeon if this is an issue. If you develop symptoms such as a fever, cold, or flu, or have other changes to your health within TWO DAYS of scheduled surgery or the morning of surgery, please contact the surgery center above. Personal Belongings: - Leave ALL valuables and money at home or with family members. - You will need a form of ID and insurance card to check in the morning of surgery. - You will have to wear a hospital gown during your stay but if you wish to bring undergarments for after surgery you may. -If you do not have a copy of advance directives on file with us, please bring a copy with you on the day of surgery. If you already have an Advance Directive, please fax a copy to [phone] or Waldo JONATHON at [phone] or email to for it to be added to your chart. If you do not have an Advance Directive, you can find the appropriate form and more information at [email or web address]. We recommend that you complete the Advance Directive form found on the website and bring it with you the day of your surgery. It can be witnessed and scanned into your chart that day. Please note-you should have a 72-hour period between getting your vaccine and date of surgery - If you have a stimulator, implant or pump that requires a remote please bring the remote with you day of surgery Brando Taylor APRN.MUSIC COORDINATOR documented in this encounter [facility] 01-27-2025 History and physical note Images from the original note were not included. [facility] HISTORY AND PHYSICAL EXAMINATION SERVICE DATE: 01/27/2025 SERVICE TIME: 8:25 AM PRIMARY CARE PHYSICIAN: Viktor Ferrera MD Assessment Patient has the following medical conditions which may affect franky-operative course: Pre-op exam see note for medical conditions which may affect franky-operative course that were addressed at today's visit. BPH associated with nocturia Surgery scheduled 02/04/2025 Bladder calculus Surgery scheduled 02/04/2025 DM (diabetes mellitus), type 2 with neurological complications (HCC) Metformin-instructed to hold DOS 09/2024 A1C 6.7% HTN (hypertension) [id number] to hold DOS Amlodipine-instructed to take DOS Hyperlipidemia with target LDL less than 100 Statin-Instructed to continue perioperatively 09/2024 lipid panel reviewed in epic Gastroesophageal reflux disease without esophagitis Occasional No medication + hiatal hernia-sometimes feel like food is getting stuck. DVT (deep venous thrombosis) ([facility]) H/O remote DVT- Heart murmur Heart murmur noted on exam. Patient has never known of heart murmur. No echo in epic. Patient denies syncope, near syncope, chest pain or shortness of breath. ANESTHESIA FINDINGS: Intubation History: No history of difficult intubation Significant Anesthesia Considerations: none Airway History: No history of difficult airway Torres Activity Status Index: METS: Climb a flight of stairs or walk up a hill (5.50 METs) DASI Score: 5.5 Patient denies any chest pain or undue shortness of breath with the above physical activity. ARISCAT Score: Age: 51-80 Preoperative SpO2: >=96% Respiratory infection in the last month: No Preoperative anemia: No Surgical incision: peripheral Duration of surgery: <2 hrs Emergency procedure: No ARISCAT Score: 3 I - PHYSICAL EVALUATION AIRWAY Patient intubated: No. DENTAL Dental findings: teeth intact. Dentures, upper: partial. II - ANESTHESIA PLAN Anesthetic Plan: general Beta Twila Monitoring Plan Post Procedure Analgesic Plan Prepared for Surgery: CONSULTS: Patient does not require consults for optimization at this time Planned Anesthetic: general The Following Tests/Procedures Have Been Initiated: No orders of the defined types were placed in this encounter. REASON FOR VISIT: Charline Sanchez is a 69 year old male who is scheduled for Procedure(s): LASER CYSTOLITHOLAPAXY BLADDER SIMPLE OR SMALL (LESS THAN 2.5 CM) ~ HOLMIUM (N/A) CYSTOSCOPY, RESECTION PROSTATE TRANSURETHRAL (N/A) at the request of Dr. Sheriff, David Buckner Jr., MD for routine H&P. My final recommendation will be communicated back to the requesting physician by way of shared medical record or letter. Subjective The patient has the following: COVID-19 Immunization Status This patient has no relevant Health Maintenance data. CHIEF COMPLAINT: The reason for this visit is to perform a comprehensive review of the patient's past medical history, assess their current health status and obtain any additional testing required based on anesthesia guidelines. We will also identify any potential anesthesia problems or contraindications to the planned procedure. HPI: Patient is a 69 year old male who presents for pre anesthesia testing. He has h/o Bladder calculus and Benign prostatic hyperplasia. He has intermittent dysuria and gross hematuria. He C/O nocturia x 3-4, frequency, urgency and incontinence. After discussion with the surgeon patient agrees to surgical intervention. REVIEW OF SYSTEMS: General: Negative for: unintentional weight change, malaise and fever. Neurological: Negative for: headaches, seizures and strokes. Respiratory: Negative for: asthma, COPD, current cough, dyspnea, pneumonia within 6 weeks, URI < 2 weeks and obstructive sleep apnea. Cardiovascular: Positive for: DVT/PE, hyperlipidemia and hypertension Negative for: atrial fibrillation, CAD, chest pain and CHF. GI: + intermittent constipation Positive for: GERD Negative for: abdominal pain, nausea and vomiting. : See HPI. Positive for: BPH, dysuria and hematuria. Negative for: renal failure. Endocrine: Positive for: diabetes mellitus. Patient's diabetes mellitus is controlled by oral agents. Negative for: hyperthyroidism and hypothyroidism. Hematology: Negative for: anemia, factor V Leiden and von Willebrand disease. Oncology: No history of CA metastasis, chemo within 30 days, or radiotherapy within 90 days. No history of oncological symptoms or problems. Psych: Positive for: depression. Negative for: anxiety. Musculoskeletal: Positive for: back pain. Negative for: joint pain. Skin: Negative for lesions, rash and itching. Implanted Devices: No implanted devices. PAST MEDICAL HISTORY Diagnosis Date Bladder calculus BPH (benign prostatic hyperplasia) BPH associated with nocturia Cervical radiculopathy Controlled type 2 diabetes mellitus without complication, without long-term current use of insulin (HCC) 06/19/2014 06/19/14 HbA1c 8.1 DVT of lower limb, acute (HCC) 07/13/2011 Elevated prostate specific antigen (PSA) 12/10/2023 Essential hypertension Hyperlipidemia LDL goal < 100 05/16/2013 Lumbar degenerative disc disease 07/09/2012 Memory changes Pappas's neuroma 05/16/2013 OAB (overactive bladder) 03/24/2024 Radiculopathy of lumbar region Sciatica Sebaceous cyst 10/16/2024 Skin lesion 10/16/2024 Superficial spreading malignant melanoma of skin (HCC) 12/03/2014 Vitamin D deficiency PAST SURGICAL HISTORY Procedure Laterality Date EXC SKIN MALIG >4CM REMAINDR BODY 04/16/2017 Squamous cell carcinoma completely excised clean margins I & D ABSCESS, SINGLE Right 11/26/2024 Neck MELANOMA OF SKIN EXCISION SYN RPT Left 2014 back MELANOMA OF SKIN EXCISION SYN RPT 04/16/2017 right posterior ear lesion [facility] TONSILLECTOMY PRIMARY/SECONDARY Tonsillectomy FAMILY HISTORY Problem Relation Age of Onset Heart Mother pacemaker Arthritis Mother knees,hips,lumbar spine Diabetes Mother Dementia Mother Heart Father valve other (electrical injury) Brother other (Memory issues) Brother other (Lower back injury) Brother No Known Problems Maternal Grandmother No Known Problems Maternal Grandfather No Known Problems Paternal Grandmother No Known Problems Paternal Grandfather Social History Tobacco Use Smoking status: Never Smokeless tobacco: Never Vaping Use Vaping status: Never Used Substance Use Topics Alcohol use: Yes Comment: Occassionally Drug use: Never Prior to Admission medications as of 01/27/25 0759 Medication Sig Last Dose Taking trospium (SANCTURA) 20 mg tablet TAKE 1 TABLET BY MOUTH EVERY DAY Yes atorvastatin (LIPITOR) 20 mg tablet Take 1 tablet by mouth once daily. Yes cholecalciferol, Vitamin D3, (VITAMIN D3) 1,250 mcg (50,000 unit) cap capsule Take 1 capsule by mouth one time a week. take with food Yes Valsartan-hydroCHLOROthiazide (DIOVAN HCT) 80-12.5 mg per tablet Take 1 tablet by mouth once daily. Yes gabapentin (NEURONTIN) 300 mg capsule By mouth: 300mg qam, 600mg qHS Yes amLODIPine (NORVASC) 10 mg tablet Take 1 tablet by mouth once daily. Yes donepezil (ARICEPT) 5 mg tablet Take 1 tablet by mouth daily at bedtime. Yes metFORMIN (GLUCOPHAGE) 500 mg tablet Take 1 tablet by mouth two times a day with meals. Yes cyclobenzaprine (FLEXERIL) 5 mg tablet Take 1 tablet by mouth three times a day. Patient taking differently: Take 1 tablet by mouth three times a day. Yes tamsulosin (FLOMAX) 0.4 mg Take 2 capsules by mouth daily at bedtime. Patient taking differently: Take 2 capsules by mouth daily at bedtime. Yes albuterol HFA (VENTOLIN HFA) 90 mcg/actuation inhaler Inhale 2 Puffs as instructed every 4 hours as needed for wheezing/shortness of breath. Yes iv contrast (will be provided with radiology test) CT Urogram WO/W Inject, intravenously, once for 1 dose.No IV access, insert saline lock prior to the beginning of sedation, infusion, injection of imaging exam. Discontinue saline lock post exam. If Pt. has a central line or IVAD, may access for administration according to line specific nursing protocol. Once exam is complete flush line and de-access according to line specific nursing protocol in the CT contrast administration guidelines link. No medication comments found. ALLERGIES Allergen Reactions Kidney Beans GI Upset Lisinopril Cough Tyler Seed Other: See Comments Adverse taste in mouth Objective PHYSICAL EXAM: General: alert and oriented and healthy appearance. Pertinent negatives noted - not distressed. Skin: normal color, no rash or lesions. HEENT: pupils equal round. Cardiovascular: Pulse characterized as regular.Positive for murmur. Findings of a 2/6 grade systolic heart murmur with a quality, and a location of: aortic area. Respiratory: normal breath sounds, no wheezes or crackles. No chest wall deformity or tenderness. Abdomen: bowel sounds present. Extremities: no deformity, no edema or tenderness, no joint swelling or clubbing. Neurological: normal cognition and motor skills. Gait normal. No weakness or sensory deficit. PAIN ASSESSMENT: VITALS: BP 118/74 Pulse 73 Temp 98.1 Resp 16 Ht 5' 8 (1.73m) Wt 197 lb (89.4kg) SpO2 96% BMI 29.96 kg/(m^2). Diagnostic tests reviewed for today's visit: Lab Value Units Date High Low HB No results within date range. HCT No results within date range. WBC No results within date range. PLT No results within date range. NA 139 mmol/L 10/13/2024 144 136 K 3.7 mmol/L 10/13/2024 5.1 3.7 GLUC 117 mg/dL 10/13/2024 99 74 BUN 24 mg/dL 10/13/2024 24 9 CREAT 0.89 mg/dL 12/09/2024 1.22 0.73 PTSEC No results within date range. INR No results within date range. APTT No results within date range. ALT 15 U/L 10/13/2024 54 10 AST 19 U/L 10/13/2024 40 14 TBILI 0.9 mg/dL 10/13/2024 1.3 0.2 TSH No results within date range. Lab Value Units Date High Low HCGQT No results within date range. UHCG No results within date range. HCG, BODY* No results within date range. Lab Value Units Date High Low ABORHD No results within date range. ABSCREEN No results within date range. Hemoglobin A1C (%) Date Value 10/13/2024 6.7 04/07/2024 7.1 10/08/2023 7.4 03/28/2023 7.2 09/12/2022 6.9 02/09/2021 6.7 06/29/2020 6.5 05/15/2019 6.1 10/01/2017 6.4 03/19/2017 6.2 HGB A1C (no units) Date Value 04/03/2018 6.2 No results found for this or any previous visit (from the past 8760 hours). No results found for this or any previous visit (from the past 81602 hours). OARRS report reviewed Patient denies blood thinners The Following Tests/Procedures Have Been Initiated: Urine culture ordered per surgeon in epic Assessment/Plan Diagnosis:Bladder calculus [N21.0] Benign prostatic hyperplasia, unspecified whether lower urinary tract symptoms present [N40.0] PLAN Planned Procedure: Procedure(s): LASER CYSTOLITHOLAPAXY BLADDER SIMPLE OR SMALL (LESS THAN 2.5 CM) ~ HOLMIUM (N/A) CYSTOSCOPY, RESECTION PROSTATE TRANSURETHRAL (N/A) I spent a total of 40 minutes on the date of the service which included preparing to see the patient, [id number] patient care, completing clinical documentation, obtaining and/or reviewing separately obtained history, performing a medically appropriate examination, and counseling and educating the patient/family/caregiver. Instructions Given to Patient: Instructions located in the after visit summary. Patient given verbal and written preop instructions and voices comprehension and compliance. SIGNATURE: Brando Taylor APRN.CNP PATIENT NAME: Charline Sanchez DATE: January 27, 2025 TIME: 9:45 AM PAGER/CONTACT #: [facility] 01-27-2025 History and physical note Images from the original note were not included. [facility] HISTORY AND PHYSICAL EXAMINATION SERVICE DATE: 01/27/2025 SERVICE TIME: 8:25 AM PRIMARY CARE PHYSICIAN: Viktor Ferrera MD Assessment Patient has the following medical conditions which may affect franky-operative course: Pre-op exam see note for medical conditions which may affect franky-operative course that were addressed at today's visit. BPH associated with nocturia Surgery scheduled 02/04/2025 Bladder calculus Surgery scheduled 02/04/2025 DM (diabetes mellitus), type 2 with neurological complications ([facility]) Metformin-instructed to hold DOS 09/2024 A1C 6.7% HTN (hypertension) Dzbgiklef-LBNR-qsinbnirps to hold DOS Amlodipine-instructed to take DOS Hyperlipidemia with target LDL less than 100 Statin-Instructed to continue perioperatively 09/2024 lipid panel reviewed in [facility] Gastroesophageal reflux disease without esophagitis Occasional No medication + hiatal hernia-sometimes feel like food is getting stuck. DVT (deep venous thrombosis) ([facility]) H/O remote DVT- Heart murmur Heart murmur noted on exam. Patient has never known of heart murmur. No echo in [facility] [place]. Patient denies syncope, near syncope, chest pain or shortness of breath. ANESTHESIA FINDINGS: Intubation History: No history of difficult intubation Significant Anesthesia Considerations: none Airway History: No history of difficult airway Torres Activity Status Index: METS: Climb a flight of stairs or walk up a hill (5.50 METs) DASI Score: 5.5 Patient denies any chest pain or undue shortness of breath with the above physical activity. ARISCAT Score: Age: 51-80 Preoperative SpO2: >=96% Respiratory infection in the last month: No Preoperative anemia: No Surgical incision: peripheral Duration of surgery: <2 hrs Emergency procedure: No ARISCAT Score: 3 I - PHYSICAL EVALUATION AIRWAY Patient intubated: No. DENTAL Dental findings: teeth intact. Dentures, upper: partial. II - ANESTHESIA PLAN Anesthetic Plan: general Beta Twila Monitoring Plan Post Procedure Analgesic Plan Prepared for Surgery: CONSULTS: Patient does not require consults for optimization at this time Planned Anesthetic: general The Following Tests/Procedures Have Been Initiated: No orders of the defined types were placed in this encounter. REASON FOR VISIT: Charline Sanchez is a 69 year old male who is scheduled for Procedure(s): LASER CYSTOLITHOLAPAXY BLADDER SIMPLE OR SMALL (LESS THAN 2.5 CM) ~ HOLMIUM (N/A) CYSTOSCOPY, RESECTION PROSTATE TRANSURETHRAL (N/A) at the request of Dr. Sheriff, David Buckner Jr., MD for routine H&P. My final recommendation will be communicated back to the requesting physician by way of shared medical record or letter. Subjective The patient has the following: COVID-19 Immunization Status This patient has no relevant Health Maintenance data. CHIEF COMPLAINT: The reason for this visit is to perform a comprehensive review of the patient's past medical history, assess their current health status and obtain any additional testing required based on anesthesia guidelines. We will also identify any potential anesthesia problems or contraindications to the planned procedure. HPI: Patient is a 69 year old male who presents for pre anesthesia testing. He has h/o Bladder calculus and Benign prostatic hyperplasia. He has intermittent dysuria and gross hematuria. He C/O nocturia x 3-4, frequency, urgency and incontinence. After discussion with the surgeon patient agrees to surgical intervention. REVIEW OF SYSTEMS: General: Negative for: unintentional weight change, malaise and fever. Neurological: Negative for: headaches, seizures and strokes. Respiratory: Negative for: asthma, COPD, current cough, dyspnea, pneumonia within 6 weeks, URI < 2 weeks and obstructive sleep apnea. Cardiovascular: Positive for: DVT/PE, hyperlipidemia and hypertension Negative for: atrial fibrillation, CAD, chest pain and CHF. GI: + intermittent constipation Positive for: GERD Negative for: abdominal pain, nausea and vomiting. : See HPI. Positive for: BPH, dysuria and hematuria. Negative for: renal failure. Endocrine: Positive for: diabetes mellitus. Patient's diabetes mellitus is controlled by oral agents. Negative for: hyperthyroidism and hypothyroidism. Hematology: Negative for: anemia, factor V Leiden and von Willebrand disease. Oncology: No history of CA metastasis, chemo within 30 days, or radiotherapy within 90 days. No history of oncological symptoms or problems. Psych: Positive for: depression. Negative for: anxiety. Musculoskeletal: Positive for: back pain. Negative for: joint pain. Skin: Negative for lesions, rash and itching. Implanted Devices: No implanted devices. PAST MEDICAL HISTORY Diagnosis Date Bladder calculus BPH (benign prostatic hyperplasia) BPH associated with nocturia Cervical radiculopathy Controlled type 2 diabetes mellitus without complication, without long-term current use of insulin (HCC) 06/19/2014 06/19/14 HbA1c 8.1 DVT of lower limb, acute (HCC) 07/13/2011 Elevated prostate specific antigen (PSA) 12/10/2023 Essential hypertension Hyperlipidemia LDL goal < 100 05/16/2013 Lumbar degenerative disc disease 07/09/2012 Memory changes Pappas's neuroma 05/16/2013 OAB (overactive bladder) 03/24/2024 Radiculopathy of lumbar region Sciatica Sebaceous cyst 10/16/2024 Skin lesion 10/16/2024 Superficial spreading malignant melanoma of skin (HCC) 12/03/2014 Vitamin D deficiency PAST SURGICAL HISTORY Procedure Laterality Date EXC SKIN MALIG >4CM REMAINDR BODY 04/16/2017 Squamous cell carcinoma completely excised clean margins I & D ABSCESS, SINGLE Right 11/26/2024 Neck MELANOMA OF SKIN EXCISION SYN RPT Left 2014 back MELANOMA OF SKIN EXCISION SYN RPT 04/16/2017 right posterior ear lesion [facility] TONSILLECTOMY PRIMARY/SECONDARY <AGE 11 Tonsillectomy FAMILY HISTORY Problem Relation Age of Onset Heart Mother pacemaker Arthritis Mother knees,hips,lumbar spine Diabetes Mother Dementia Mother Heart Father valve other (electrical injury) Brother other (Memory issues) Brother other (Lower back injury) Brother No Known Problems Maternal Grandmother No Known Problems Maternal Grandfather No Known Problems Paternal Grandmother No Known Problems Paternal Grandfather Social History Tobacco Use Smoking status: Never Smokeless tobacco: Never Vaping Use Vaping status: Never Used Substance Use Topics Alcohol use: Yes Comment: Occassionally Drug use: Never Prior to Admission medications as of 01/27/25 0750 Medication Sig Last Dose Taking trospium (SANCTURA) 20 mg tablet TAKE 1 TABLET BY MOUTH EVERY DAY Yes atorvastatin (LIPITOR) 20 mg tablet Take 1 tablet by mouth once daily. Yes cholecalciferol, Vitamin D3, (VITAMIN D3) 1,250 mcg (50,000 unit) cap capsule Take 1 capsule by mouth one time a week. take with food Yes Valsartan-hydroCHLOROthiazide (DIOVAN HCT) 80-12.5 mg per tablet Take 1 tablet by mouth once daily. Yes gabapentin (NEURONTIN) 300 mg capsule By mouth: 300mg qam, 600mg qHS Yes amLODIPine (NORVASC) 10 mg tablet Take 1 tablet by mouth once daily. Yes donepezil (ARICEPT) 5 mg tablet Take 1 tablet by mouth daily at bedtime. Yes metFORMIN (GLUCOPHAGE) 500 mg tablet Take 1 tablet by mouth two times a day with meals. Yes cyclobenzaprine (FLEXERIL) 5 mg tablet Take 1 tablet by mouth three times a day. Patient taking differently: Take 1 tablet by mouth three times a day. Yes tamsulosin (FLOMAX) 0.4 mg Take 2 capsules by mouth daily at bedtime. Patient taking differently: Take 2 capsules by mouth daily at bedtime. Yes albuterol HFA (VENTOLIN HFA) 90 mcg/actuation inhaler Inhale 2 Puffs as instructed every 4 hours as needed for wheezing/shortness of breath. Yes iv contrast (will be provided with radiology test) CT Urogram WO/W Inject, intravenously, once for 1 dose.No IV access, insert saline lock prior to the beginning of sedation, infusion, injection of imaging exam. Discontinue saline lock post exam. If Pt. has a central line or IVAD, may access for administration according to line specific nursing protocol. Once exam is complete flush line and de-access according to line specific nursing protocol in the CT contrast administration guidelines link. No medication comments found. ALLERGIES Allergen Reactions Kidney Beans GI Upset Lisinopril Cough Tyler Seed Other: See Comments Adverse taste in mouth Objective PHYSICAL EXAM: General: alert and oriented and healthy appearance. Pertinent negatives noted - not distressed. Skin: normal color, no rash or lesions. HEENT: pupils equal round. Cardiovascular: Pulse characterized as regular.Positive for murmur. Findings of a 2/6 grade systolic heart murmur with a quality, and a location of: aortic area. Respiratory: normal breath sounds, no wheezes or crackles. No chest wall deformity or tenderness. Abdomen: bowel sounds present. Extremities: no deformity, no edema or tenderness, no joint swelling or clubbing. Neurological: normal cognition and motor skills. Gait normal. No weakness or sensory deficit. PAIN ASSESSMENT: VITALS: BP 118/74 Pulse 73 Temp 98.1 Resp 16 Ht 5' 8 (1.73m) Wt 197 lb (89.4kg) SpO2 96% BMI 29.96 kg/(m^2). Diagnostic tests reviewed for today's visit: Lab Value Units Date High Low HB No results within date range. HCT No results within date range. WBC No results within date range. PLT No results within date range. NA 139 mmol/L 10/13/2024 144 136 K 3.7 mmol/L 10/13/2024 5.1 3.7 GLUC 117 mg/dL 10/13/2024 99 74 BUN 24 mg/dL 10/13/2024 24 9 CREAT 0.89 mg/dL 12/09/2024 1.22 0.73 PTSEC No results within date range. INR No results within date range. APTT No results within date range. ALT 15 U/L 10/13/2024 54 10 AST 19 U/L 10/13/2024 40 14 TBILI 0.9 mg/dL 10/13/2024 1.3 0.2 TSH No results within date range. Lab Value Units Date High Low HCGQT No results within date range. UHCG No results within date range. HCG, BODY* No results within date range. Lab Value Units Date High Low ABORHD No results within date range. ABSCREEN No results within date range. Hemoglobin A1C (%) Date Value 10/13/2024 6.7 04/07/2024 7.1 10/08/2023 7.4 03/28/2023 7.2 09/12/2022 6.9 02/09/2021 6.7 06/29/2020 6.5 05/15/2019 6.1 10/01/2017 6.4 03/19/2017 6.2 HGB A1C (no units) Date Value 04/03/2018 6.2 No results found for this or any previous visit (from the past 8760 hours). No results found for this or any previous visit (from the past 48724 hours). [place]AR[place] report reviewed Patient denies blood thinners The Following Tests/Procedures Have Been Initiated: Urine culture ordered per surgeon in epic Assessment/Plan Diagnosis:Bladder calculus [N21.0] Benign prostatic hyperplasia, unspecified whether lower urinary tract symptoms present [N40.0] PLAN Planned Procedure: Procedure(s): LASER CYSTOLITHOLAPAXY BLADDER SIMPLE OR SMALL (LESS THAN 2.5 CM) ~ HOLMIUM (N/A) CYSTOSCOPY, RESECTION PROSTATE TRANSURETHRAL (N/A) I spent a total of 40 minutes on the date of the service which included preparing to see the patient, [id number] patient care, completing clinical documentation, obtaining and/or reviewing separately obtained history, performing a medically appropriate examination, and counseling and educating the patient/family/caregiver. Instructions Given to Patient: Instructions located in the after visit summary. Patient given verbal and written preop instructions and voices comprehension and compliance. SIGNATURE: Brando Taylor APRN.CNP PATIENT NAME: Charline Sanchez DATE: January 27, 2025 TIME: 9:45 AM PAGER/CONTACT #: documented in this encounter [facility] 12-30-2024 Note HNO ID: [id number] Author: DAVID SHERIFF JR, MD Service: ? Author Type: Physician Type: Procedures Filed: 12/30/2024 09:04 Note Text: CYSTOSCOPY PROCEDURE NOTE: Charline Sanchez is a 69 year old male who presents with hematuria gross for cystoscopy. Pt ID verified with patient: Yes Fire risk assessment done Procedure verified with patient: Yes Procedure confirmed with physician and administrative support coordinator: Yes UNIVERSAL PROTOCOL / SAFETY CHECKLIST Procedure to be Performed: cysto Sign In: A Moment of CARE was completed. Appropriate PPE (Personal Protective Equipment) worn by all providers involved with the procedure. Special equipment not required. Patient/Surrogate Stated/Verified: Patient name, Date of , Relevant allergies, and The intended procedure Time Out: Relevant labs, photos, and/or imaging studies have been reviewed. Intended patient and procedure match the source document(s) (e.g. consent, HANDP, associated studies [imaging, pathology]) match the intended patient and procedure. Consent obtained and matches the intended procedure. Yes. Correct side/site is not applicable. Medications required for this procedure are verified. Fire risk assessed and is not applicable. Implants: are not applicable. Sign Out: Specimens are all correctly labeled and sent. All instruments, equipment, possible retained foreign bodies are accounted for. Yes. The post-procedure plan of care has been communicated to the patient or surrogate. Pre procedure dx: gross hematuria, BPH Post procedure dx: same A urinalysis was performed revealing no evidence of infection. The benefits, risks, alternatives of the cystoscopy procedure and personnel were discussed with the patient. The verbal consent was obtained and the patient agrees to proceed. Procedure: The patient was placed on the procedure table in the supine position and prepped and draped in the usual sterile fashion. 2% Lidocaine Jelly was placed per urethra as an anesthetic in the standard fashion. Once adequate local anesthesia was achieved, the tip of the flexible cystoscope was carefully placed into the urethra under direct visual guidance. The scope was negotiated through the pendulous urethra to the level of the bulbar urethra with no evidence of stricture. 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 The bladder was entered and careful randall endoscopy was carried out. The posterior, superior and lateral chase and dome of the bladder were all well visualized and the scope was retroflexed upon itself. The findings were consistent with bladder calculus. At the conclusion of the procedure, the flexible cystoscope was removed atraumatically. The patient tolerated the procedure without complications. Patient was given standard post-procedure instructions, and was directed to complete the course of oral antibiotics and increase oral fluid intake as directed. ASSESSMENT/PLAN: Cystolitholapaxy, transurethral resection of the prostate All r/b/a of surgery discussed, infection, bleeding, damage to nearby structures, repeat surgery, nodular regrowth, bladder neck contracture, incontinence, impotence, lower urinary tract symptoms, repeat catheterizations. , heart attack, stroke, deep vein thrombosis, pulmonary embolus. Patient verbalized understanding and agrees to proceed. David Sheriff Jr, MD [facility] 12-30-2024 Procedure note CYSTOSCOPY PROCEDURE NOTE: Charline Sanchez is a 69 year old male who presents with hematuria gross for cystoscopy. Pt ID verified with patient: Yes Fire risk assessment done Procedure verified with patient: Yes Procedure confirmed with physician and administrative support coordinator: Yes UNIVERSAL PROTOCOL / SAFETY CHECKLIST Procedure to be Performed: cysto Sign In: A Moment of CARE was completed. Appropriate PPE (Personal Protective Equipment) worn by all providers involved with the procedure. Special equipment not required. Patient/Surrogate Stated/Verified: Patient name, Date of , Relevant allergies, and The intended procedure Time Out: Relevant labs, photos, and/or imaging studies have been reviewed. Intended patient and procedure match the source document(s) (e.g. consent, H&P, associated studies [imaging, pathology]) match the intended patient and procedure. Consent obtained and matches the intended procedure. Yes. Correct side/site is not applicable. Medications required for this procedure are verified. Fire risk assessed and is not applicable. Implants: are not applicable. Sign Out: Specimens are all correctly labeled and sent. All instruments, equipment, possible retained foreign bodies are accounted for. Yes. The post-procedure plan of care has been communicated to the patient or surrogate. Pre procedure dx: gross hematuria, BPH Post procedure dx: same A urinalysis was performed revealing no evidence of infection. The benefits, risks, alternatives of the cystoscopy procedure and personnel were discussed with the patient. The verbal consent was obtained and the patient agrees to proceed. Procedure: The patient was placed on the procedure table in the supine position and prepped and draped in the usual sterile fashion. 2% Lidocaine Jelly was placed per urethra as an anesthetic in the standard fashion. Once adequate local anesthesia was achieved, the tip of the flexible cystoscope was carefully placed into the urethra under direct visual guidance. The scope was negotiated through the pendulous urethra to the level of the bulbar urethra with no evidence of stricture. 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 The bladder was entered and careful randall endoscopy was carried out. The posterior, superior and lateral chase and dome of the bladder were all well visualized and the scope was retroflexed upon itself. The findings were consistent with bladder calculus. At the conclusion of the procedure, the flexible cystoscope was removed atraumatically. The patient tolerated the procedure without complications. Patient was given standard post-procedure instructions, and was directed to complete the course of oral antibiotics and increase oral fluid intake as directed. ASSESSMENT/PLAN: Cystolitholapaxy, transurethral resection of the prostate All r/b/a of surgery discussed, infection, bleeding, damage to nearby structures, repeat surgery, nodular regrowth, bladder neck contracture, incontinence, impotence, lower urinary tract symptoms, repeat catheterizations. , heart attack, stroke, deep vein thrombosis, pulmonary embolus. Patient verbalized understanding and agrees to proceed. David Sheriff Jr, MD [facility] 12-30-2024 Procedure note CYSTOSCOPY PROCEDURE NOTE: Charline Sanchez is a 69 year old male who presents with hematuria gross for cystoscopy. Pt ID verified with patient: Yes Fire risk assessment done Procedure verified with patient: Yes Procedure confirmed with physician and administrative support coordinator: Yes UNIVERSAL PROTOCOL / SAFETY CHECKLIST Procedure to be Performed: cysto Sign In: A Moment of CARE was completed. Appropriate PPE (Personal Protective Equipment) worn by all providers involved with the procedure. Special equipment not required. Patient/Surrogate Stated/Verified: Patient name, Date of , Relevant allergies, and The intended procedure Time Out: Relevant labs, photos, and/or imaging studies have been reviewed. Intended patient and procedure match the source document(s) (e.g. consent, H&P, associated studies [imaging, pathology]) match the intended patient and procedure. Consent obtained and matches the intended procedure. Yes. Correct side/site is not applicable. Medications required for this procedure are verified. Fire risk assessed and is not applicable. Implants: are not applicable. Sign Out: Specimens are all correctly labeled and sent. All instruments, equipment, possible retained foreign bodies are accounted for. Yes. The post-procedure plan of care has been communicated to the patient or surrogate. Pre procedure dx: gross hematuria, BPH Post procedure dx: same A urinalysis was performed revealing no evidence of infection. The benefits, risks, alternatives of the cystoscopy procedure and personnel were discussed with the patient. The verbal consent was obtained and the patient agrees to proceed. Procedure: The patient was placed on the procedure table in the supine position and prepped and draped in the usual sterile fashion. 2% Lidocaine Jelly was placed per urethra as an anesthetic in the standard fashion. Once adequate local anesthesia was achieved, the tip of the flexible cystoscope was carefully placed into the urethra under direct visual guidance. The scope was negotiated through the pendulous urethra to the level of the bulbar urethra with no evidence of stricture. 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 The bladder was entered and careful randall endoscopy was carried out. The posterior, superior and lateral chase and dome of the bladder were all well visualized and the scope was retroflexed upon itself. The findings were consistent with bladder calculus. At the conclusion of the procedure, the flexible cystoscope was removed atraumatically. The patient tolerated the procedure without complications. Patient was given standard post-procedure instructions, and was directed to complete the course of oral antibiotics and increase oral fluid intake as directed. ASSESSMENT/PLAN: Cystolitholapaxy, transurethral resection of the prostate All r/b/a of surgery discussed, infection, bleeding, damage to nearby structures, repeat surgery, nodular regrowth, bladder neck contracture, incontinence, impotence, lower urinary tract symptoms, repeat catheterizations. , heart attack, stroke, deep vein thrombosis, pulmonary embolus. Patient verbalized understanding and agrees to proceed. David Sheriff Jr, MD documented in this encounter [facility] 12-10-2024 Instructions Kristen Shelton LPN - 12/10/2024 3:03 PM EDT The following instructions are important for you related to your office visit today with the [facility]. Instructions After SUTURE REMOVAL Your sutures have been removed today. If steristrips were placed on the incision, they should stay on for approximately 1 week. If they fall off in less time, they should be replaced. If they are on for over 1 week, they can be gently removed. If there is continued bleeding, you should contact our office immediately. You do not need to leave a dressing on the incision. If the wound shows signs of redness, inflammation, or purulent drainage, you should contact our office immediately. You should keep the wound dry for the first two days. After that time, you may wash the wound with gentle soap and water. The wound should not be immersed in a pool, bathtub, or even hot tub. If you note any additional difficulties, questions, or concerns, you should contact our office immediately @ [phone] and ask to be transferred to the General Surgery department. documented in this encounter [facility] 12-10-2024 Note HNO ID: [id number] Author: KRISTEN SHELTON LPN Service: ? Author Type: LICENSED NURSE Type: Progress Notes Filed: 12/10/2024 15:32 Note Text: The sites, neck and back, was assessed and two mattress sutures from neck and three mattress sutures from back were removed as ordered. Incision line was clean, dry and intact. Edges were well approximated. Steri strips placed. No dressing required. Patient instructed on wound care and verbalized understanding. Kristen Shelton LPN [facility] 12-10-2024 History of Present illness Narrative The sites, neck and back, was assessed and two mattress sutures from neck and three mattress sutures from back were removed as ordered. Incision line was clean, dry and intact. Edges were well approximated. Steri strips placed. No dressing required. Patient instructed on wound care and verbalized understanding. Kristen Shelton LPN documented in this encounter [facility] 12-09-2024 History of Present illness Narrative Radiology Service Progress Note DATE OF SERVICE: December 09, 2024 TIME: 2:44 PM PATIENT IDENTITY VERIFICATION COMPLETED USING TWO (2) STANDARD IDENTIFIERS: Name and Date of confirmed by patient verbally. FALL SCREENING: Has the patient had 2 falls in the last year or 1 fall with injury or currently using an Ambulatory Assistive Device (Walker, Cane, Wheelchair, Crutches, etc.)? No PATIENT GENDER DATA: Assigned male at PATIENT RELEVANT IMPLANT DATA REVIEWED: Yes PATIENT PRESENTS WITH AN IMPLANTABLE OR ATTACHED DEPUTY TREASURER: ALLERGIES: Reviewed and unchanged CONTRAST ALLERGY: NO. EXAM: CT -CONTRAST INDUCED NEPHROPATHY RISK FACTORS: Patient age > 60 years CREATININE: Creatinine Date Value Ref Range Status 10/13/2024 0.95 0.73 - 1.22 mg/dL Final 04/07/2024 0.96 0.73 - 1.22 mg/dL Final 10/08/2023 0.89 0.73 - 1.22 mg/dL Final Estimated Glomerular Filtration Rate Date Value Ref Range Status 10/13/2024 86 >=60 mL/min/1.73m Final Comment: Estimated Glomerular Filtration Rate (eGFR) is calculated using the 2020 CKD-EPI creatinine equation. This equation utilizes serum creatinine, sex, and age as parameters. The creatinine assay has traceable calibration to isotope dilution-mass spectrometry. Refer to KDIGO guidelines for clinical interpretation. In patients with unstable renal function, e.g. those with acute kidney injury, the eGFR may not accurately reflect actual GFR. eGFR- Date Value Ref Range Status 02/09/2021 >60 Final P.O.C.T. RESULTS: POC done: Yes, See Lab Tab December 09, 2024 TREATMENT: N/A PERIPHERAL IV DATA: Ambulatory: A peripheral IV was started in the Left antecubital site with a Angio cath: 22 gauge. RADIOLOGY DEPARTMENT: CT; Exam(s) Completed: Urogram SIGNATURE: RT Beverley(Hesham) PATIENT NAME: Charline Sanchez DATE: December 09, 2024 TIME: 2:44 PM documented in this encounter [facility] 12-09-2024 Note HNO ID: [id number] Author: KRISTEN MUJICA RT(R) Service: ? Author Type: Internship Coordinator Type: Progress Notes Filed: 12/09/2024 14:45 Note Text: Radiology Service Progress Note DATE OF SERVICE: December 09, 2024 TIME: 2:44 PM PATIENT IDENTITY VERIFICATION COMPLETED USING TWO (2) STANDARD IDENTIFIERS: Name and Date of confirmed by patient verbally. FALL SCREENING: Has the patient had 2 falls in the last year or 1 fall with injury or currently using an Ambulatory Assistive Device (Walker, Cane, Wheelchair, Crutches, etc.)? No PATIENT GENDER DATA: Assigned male at PATIENT RELEVANT IMPLANT DATA REVIEWED: Yes PATIENT PRESENTS WITH AN IMPLANTABLE OR ATTACHED DEPUTY TREASURER: ALLERGIES: Reviewed and unchanged CONTRAST ALLERGY: NO. EXAM: CT -CONTRAST INDUCED NEPHROPATHY RISK FACTORS: Patient age > 60 years CREATININE: Creatinine Date Value Ref Range Status 10/13/2024 0.95 0.73 - 1.22 mg/dL Final 04/07/2024 0.96 0.73 - 1.22 mg/dL Final 10/08/2023 0.89 0.73 - 1.22 mg/dL Final Estimated Glomerular Filtration Rate Date Value Ref Range Status 10/13/2024 86 >=60 mL/min/1.73m? Final Comment: Estimated Glomerular Filtration Rate (eGFR) is calculated using the 2020 CKD-EPI creatinine equation. This equation utilizes serum creatinine, sex, and age as parameters. The creatinine assay has traceable calibration to isotope dilution-mass spectrometry. Refer to KDIGO guidelines for clinical interpretation. In patients with unstable renal function, e.g. those with acute kidney injury, the eGFR may not accurately reflect actual GFR. eGFR- Date Value Ref Range Status 02/09/2021 >60 Final P.O.C.T. RESULTS: POC done: Yes, See Lab Tab December 09, 2024 TREATMENT: N/A PERIPHERAL IV DATA: Ambulatory: A peripheral IV was started in the Left antecubital site with a Angio cath: 22 gauge. RADIOLOGY DEPARTMENT: CT; Exam(s) Completed: Urogram SIGNATURE: Kristen Poole RT(R) PATIENT NAME: Charline Sanchez DATE: December 09, 2024 TIME: 2:44 PM [facility] 12-03-2024 Note HNO ID: [id number] Author: EUGENE JOHN RN Service: ? Author Type: Registered Nurse Type: Progress Notes Filed: 12/03/2024 09:03 Note Text: Summary: suture removal TA temp 97.5. Removed 5 simple sutures. 2 from rt neck surgical site. Removed 3 simple sutures from back surgical site. Steri strips placed on back, 3 mattress sutures remain on back. 2 mattress sutures remain on rt neck area. Both sites were covered with opsite bandage. Neither wound showed any redness, swelling or discharge. Pt did complain of hypersensitivity to hair follicles near the sites. [facility] 12-03-2024 History of Present illness Narrative Summary: suture removal TA temp 97.5. Removed 5 simple sutures. 2 from rt neck surgical site. Removed 3 simple sutures from back surgical site. Steri strips placed on back, 3 mattress sutures remain on back. 2 mattress sutures remain on rt neck area. Both sites were covered with opsite bandage. Neither wound showed any redness, swelling or discharge. Pt did complain of hypersensitivity to hair follicles near the sites. documented in this encounter [facility] 12-01-2024 Telephone encounter Note Patient called in. Let him know results and to complete the rest of the testing. Apryl Cuevas LPN [facility] 12-01-2024 Miscellaneous Notes Patient called in. Let him know results and to complete the rest of the testing. Apryl Cuevas LPN Patient called back for message , he will call back on Sunday after 8:00 am Called patient. Patient unable at this time. Aware to call back for message. Kristen Shelton LPN documented in this encounter [facility] 11-29-2024 Telephone encounter Note Patient called back for message , he will call back on Sunday after 8:00 am [facility] 11-28-2024 Telephone encounter Note Called patient. Patient unable at this time. Aware to call back for message. Kristen Shelton LPN [facility] 11-27-2024 Note HNO ID: [id number] Author: TRICIA ANTONIO MD Service: ? Author Type: Physician Type: Progress Notes Filed: 11/27/2024 05:47 Note Text: FOLLOW UP VISIT - SKIN LESION NAME: Charline Sanchez [facility] NO.: [id number] DATE OF SERVICE: 11/26/2024 : 1955 REFERRING PHYSICIAN: Viktor Ferrera MD Charline is a patient I am following for a sebaceous cyst on his back and sebaceous cyst on his right neck. Charline returns today for the procedure. Charline has not taken aspirin or aspirin products for the past 7 days. VITALS: There were no vitals taken for this visit. On examination, he has a 2 cm sebaceous cyst on his lateral right neck and a 3 cm sebaceous cyst on his upper mid back PROCEDURE: EXCISION OF SEBACEOUS CYST - NECK AND BACK The risks, benefits and anticipated outcomes of the procedure, the risks and benefits of the alternatives to the procedure, and the roles and tasks of the personnel to be involved, were discussed with the patient, and the patient consents to the procedure and agrees to proceed. I verify that I personally obtained the patient's consent. Neck - The patient`s skin was prepped and draped in the usual fashion. A combination of Lidocaine and Marcaine was injected into the skin. An eliptical incision was made over the sebaceous cyst. The sebaceous cyst was dissected from it's subcutaneous attachments and removed in its entirety. The specimen measured 2 by 1 cm. This was not sent to pathology. A vessel was controlled with 3-0 Vicryl suture. The skin was then closed with interrupted 4-0 nylon sutures. The patient tolerated the procedure well. Back - The patient`s skin was prepped and draped in the usual fashion. A combination of Lidocaine and Marcaine was injected into the skin. An eliptical incision was made over the sebaceous cyst. The sebaceous cyst was dissected from it's subcutaneous attachments and removed in its entirety. The specimen measured 3 by 2 cm. This was not sent to pathology. A vessel was controlled with 3-0 Vicryl suture. The skin was then closed with interrupted 3-0 and 4-0 nylon sutures. The patient tolerated the procedure well. Assessment IMPRESSION: S/p excision of sebaceous cyst x 2 PLAN: If the patient notes any problems or signs of wound infections, the patient should contact me immediately. The patient is to follow up in approximately 7 days for suture removal on the neck and simple sutures on the back, 14 days for 3-0 Vicryl mattress sutures. Diagnoses: (L72.3) Sebaceous cyst (primary encounter diagnosis) Return to Clinic: The patient is instructed to follow-up with my nurse for suture removal in 7 days and 14 days. Tricia Antonio MD [facility] 11-27-2024 History of Present illness Narrative FOLLOW UP VISIT - SKIN LESION NAME: Charline Delcid Laura [facility] NO.: [id number] DATE OF SERVICE: 11/26/2024 : 1955 REFERRING PHYSICIAN: Viktor Ferrera MD Charline is a patient I am following for a sebaceous cyst on his back and sebaceous cyst on his right neck. Charline returns today for the procedure. Charline has not taken aspirin or aspirin products for the past 7 days. VITALS: There were no vitals taken for this visit. On examination, he has a 2 cm sebaceous cyst on his lateral right neck and a 3 cm sebaceous cyst on his upper mid back PROCEDURE: EXCISION OF SEBACEOUS CYST - NECK AND BACK The risks, benefits and anticipated outcomes of the procedure, the risks and benefits of the alternatives to the procedure, and the roles and tasks of the personnel to be involved, were discussed with the patient, and the patient consents to the procedure and agrees to proceed. I verify that I personally obtained the patient's consent. Neck - The patient`s skin was prepped and draped in the usual fashion. A combination of Lidocaine and Marcaine was injected into the skin. An eliptical incision was made over the sebaceous cyst. The sebaceous cyst was dissected from it's subcutaneous attachments and removed in its entirety. The specimen measured 2 by 1 cm. This was not sent to pathology. A vessel was controlled with 3-0 Vicryl suture. The skin was then closed with interrupted 4-0 nylon sutures. The patient tolerated the procedure well. Back - The patient`s skin was prepped and draped in the usual fashion. A combination of Lidocaine and Marcaine was injected into the skin. An eliptical incision was made over the sebaceous cyst. The sebaceous cyst was dissected from it's subcutaneous attachments and removed in its entirety. The specimen measured 3 by 2 cm. This was not sent to pathology. A vessel was controlled with 3-0 Vicryl suture. The skin was then closed with interrupted 3-0 and 4-0 nylon sutures. The patient tolerated the procedure well. Assessment IMPRESSION: S/p excision of sebaceous cyst x 2 PLAN: If the patient notes any problems or signs of wound infections, the patient should contact me immediately. The patient is to follow up in approximately 7 days for suture removal on the neck and simple sutures on the back, 14 days for 3-0 Vicryl mattress sutures. Diagnoses: (L72.3) Sebaceous cyst (primary encounter diagnosis) Return to Clinic: The patient is instructed to follow-up with my nurse for suture removal in 7 days and 14 days. Tricia Antonio MD UNIVERSAL PROTOCOL / SAFETY CHECKLIST Procedure to be Performed: Excision of right neck skin lesion, excision of back sebaceous cyst Sign In: A Moment of CARE was completed. Appropriate PPE (Personal Protective Equipment) worn by all providers involved with the procedure. Special equipment not required. Patient/Surrogate Stated/Verified: Patient name, Date of , Relevant allergies, and The intended procedure Time Out: Relevant labs, photos, and/or imaging studies are not applicable. Intended patient and procedure match the source document(s) (e.g. consent, H&P, associated studies [imaging, pathology]) match the intended patient and procedure. Consent obtained and matches the intended procedure. Yes. Correct side/site has been marked and visible. Medications required for this procedure are verified. Fire risk assessed and is not applicable. Implants: are not applicable. Sign Out: Specimens not collected. All instruments, equipment, possible retained foreign bodies are accounted for. Yes. The post-procedure plan of care has been communicated to the patient or surrogate. Kristen Shelton LPN documented in this encounter [facility] 11-26-2024 Instructions Kristen Shelton LPN - 11/26/2024 2:00 PM EDT The following instructions are important for you related to your office visit today with the [facility] Surgeons. Instructions After SKIN EXCISION-SUTURES You can remove the dressing in two days. If the dressing becomes soaked or had significant drainage, the dressing should be changed. If there is minor bleeding from this skin edge, you should hold pressure on the incision until the bleeding stops. If there is continued bleeding, you should contact our office immediately. You do not need to leave a dressing on the wound after two days. If the wound shows signs of redness, inflammation, or purulent drainage, you should contact our office immediately. You should keep the wound dry for the first two days. After that time, you may wash the wound with gentle soap and water. The wound should not be immersed in a pool, bathtub, or even hot tub. We prefer to check the incision and remove the stitches in our office when ready. Please make an appointment to return to our office in one week to remove simple sutures and return in two weeks to remove mattress sutures. Neck: two mattress sutures, three simple sutures. Back: three mattress sutures, four simple sutures. Please do not remove the stitches yourself without approval from our office. If you note any additional difficulties, questions, or concerns, you should contact our office immediately @ [phone] and ask to be transferred to the General Surgery department. documented in this encounter [facility] 11-26-2024 Note HNO ID: [id number] Author: KRISTEN SHELTON LPN Service: ? Author Type: LICENSED NURSE Type: Progress Notes Filed: 11/27/2024 05:47 Note Text: UNIVERSAL PROTOCOL / SAFETY CHECKLIST Procedure to be Performed: Excision of right neck skin lesion, excision of back sebaceous cyst Sign In: A Moment of CARE was completed. Appropriate PPE (Personal Protective Equipment) worn by all providers involved with the procedure. Special equipment not required. Patient/Surrogate Stated/Verified: Patient name, Date of , Relevant allergies, and The intended procedure Time Out: Relevant labs, photos, and/or imaging studies are not applicable. Intended patient and procedure match the source document(s) (e.g. consent, HANDP, associated studies [imaging, pathology]) match the intended patient and procedure. Consent obtained and matches the intended procedure. Yes. Correct side/site has been marked and visible. Medications required for this procedure are verified. Fire risk assessed and is not applicable. Implants: are not applicable. Sign Out: Specimens not collected. All instruments, equipment, possible retained foreign bodies are accounted for. Yes. The post-procedure plan of care has been communicated to the patient or surrogate. Kristen Shelton LPN [facility] 11-25-2024 Telephone encounter Note Pt confirmed cysto with Dr. Sheriff in [place] 12/29/24 @ 8:[address] prior 12/09. Ref by Sylvia Eid for hematuria. Shakira [facility] 11-25-2024 Miscellaneous Notes Pt confirmed cysto with Dr. Sheriff in [place] 12/29/24 @ 8:[address] prior 12/09. Ref by Sylvia Eid for hematuria. Shakira documented in this encounter [facility] 11-25-2024 Jaye Lopez PA-C - 11/25/2024 10:[address] Urogram to be scheduled at [facility] Cystoscopy to scheduled at [facility] - Urology they will contact patient # [phone] Urine Culture - Pending Urine Cytology - Pending documented in this encounter [facility] 11-25-2024 History of Present illness Narrative Images from the original note were not included. [facility] PATIENT CLINIC NOTE (M) Some elements copied from his previous note, which have been updated where appropriate, and all reflect current medical decision making from date of this visit. Note was generated by [employer] and edited as appropriate SERVICE DATE: November 25, 2024 NAME: Charline Sanchez GENDER: male CHIEF COMPLAINT: history of BPH, presenting for follow-up and evaluation of hematuria. HISTORY OF PRESENT ILLNESS: The patient is a 69-year-old male with a history of BPH, presenting for follow-up and evaluation of hematuria. Hematuria: - Reports a red tint in urine, x2-3 times over the past 6 months. - Describes the tint as settling at the base of the toilet bowl, with the rest of the urine appearing clear. - Denies any recent episodes of hematuria today. - No history of recent kidney stones; had a kidney stone many years ago. BPH: - Taking tamsulosin 1 capsule at bedtime. - Taking trospium at bedtime for urgency and overactive bladder. - Continues pelvic floor physical therapy. - Last PSA in April 2024 was 4.33. - No current symptoms reported. > We discussed the common causes of urinary frequency and urgency, and restricting water intake In hopes to mitigate the need to urinate, we discussed how this behavior more often worsen the problem not improving it, > We discussed increasing daily water intake to 64-84 oz 7a -7p and try to reduce bladder irritants, caffeine, alcohol and acid foods and drink. > Bladder irritants handout available to patient. LABS: PSA (ng/mL) Date Value 04/07/2024 4.33 10/08/2023 4.03 03/08/2022 4.07 02/09/2021 4.46 PSA Screening (ng/mL) Date Value 03/28/2023 3.95 06/29/2020 4.67 Creatinine Date Value Ref Range Status 10/13/2024 0.95 0.73 - 1.22 mg/dL Final 04/07/2024 0.96 0.73 - 1.22 mg/dL Final 10/08/2023 0.89 0.73 - 1.22 mg/dL Final No results found for: TESTOST Hematocrit (%) Date Value 10/10/2023 48.8 06/29/2020 47.1 PSA (ng/mL) Date Value 04/07/2024 4.33 10/08/2023 4.03 03/08/2022 4.07 02/09/2021 4.46 PSA Screening (ng/mL) Date Value 03/28/2023 3.95 06/29/2020 4.67 MEDICATIONS: atorvastatin (LIPITOR) 20 mg tablet Take 1 tablet by mouth once daily. cholecalciferol, Vitamin D3, (VITAMIN D3) 1,250 mcg (50,000 unit) cap capsule Take 1 capsule by mouth one time a week. take with food Valsartan-hydroCHLOROthiazide (DIOVAN HCT) 80-12.5 mg per tablet Take 1 tablet by mouth once daily. gabapentin (NEURONTIN) 300 mg capsule By mouth: 300mg qam, 600mg qHS amLODIPine (NORVASC) 10 mg tablet Take 1 tablet by mouth once daily. donepezil (ARICEPT) 5 mg tablet Take 1 tablet by mouth daily at bedtime. metFORMIN (GLUCOPHAGE) 500 mg tablet Take 1 tablet by mouth two times a day with meals. cyclobenzaprine (FLEXERIL) 5 mg tablet Take 1 tablet by mouth three times a day. trospium (SANCTURA) 20 mg tablet Take 1 tablet by mouth once daily. tamsulosin (FLOMAX) 0.4 mg Take 2 capsules by mouth daily at bedtime. albuterol HFA (VENTOLIN HFA) 90 mcg/actuation inhaler Inhale 2 Puffs as instructed every 4 hours as needed for wheezing/shortness of breath. iv contrast (will be provided with radiology test) CT Urogram WO/W Inject, intravenously, once for 1 dose.No IV access, insert saline lock prior to the beginning of sedation, infusion, injection of imaging exam. Discontinue saline lock post exam. If Pt. has a central line or IVAD, may access for administration according to line specific nursing protocol. Once exam is complete flush line and de-access according to line specific nursing protocol in the CT contrast administration guidelines link. 0.9 % sodium chloride (NACL 0.9%) infusion Inject 150 mL/hr intravenously one time only for 1 dose. Administer at rate defined per CT contrast administration specifications. To be provided with radiology test. PAST MEDICAL HISTORY: PAST MEDICAL HISTORY Diagnosis Date BPH associated with nocturia Cervical radiculopathy Controlled type 2 diabetes mellitus without complication, without long-term current use of insulin ([facility]) 06/19/2014 06/19/14 HbA1c 8.1 DVT of lower limb, acute ([facility]) 07/13/2011 Elevated prostate specific antigen (PSA) 12/10/2023 Essential hypertension Hyperlipidemia LDL goal < 100 05/16/2013 Lumbar degenerative disc disease 07/09/2012 Memory changes Pappas's neuroma 05/16/2013 OAB (overactive bladder) 03/24/2024 Radiculopathy of lumbar region Sciatica Sebaceous cyst 10/16/2024 Skin lesion 10/16/2024 Superficial spreading malignant melanoma of skin ([facility]) 12/03/2014 Vitamin D deficiency REVIEW OF SYSTEMS: Gastrointestinal: (+) bowel incontinence Genitourinary: (+) urinary incontinence, (+) urinary urgency, (+) hematuria Musculoskeletal: (+) low back pain PHYSICAL EXAMINATION: General: Alert & oriented, no acute distress Skin: Normal HEENT: Pupils equal, round. Oral cavity, oropharynx clear Neck: Supple, no mass Breast: Deferred Respiratory: Clear to auscultation, bilaterally Cardiovascular: Regular rate and rhythm, no murmurs, rubs, or gallops Abdomen: Soft, non-tender, non-distended, no masses palpable, no hepatosplenomegaly, normal bowel sounds Genitourinary: Urine appears dark MSK: Back is non-tender Extremities: No clubbing, cyanosis, or edema PROBLEM LIST REVIEW: Yes LABS: Results for orders placed or performed in visit on 11/25/24 UA DIP, URINE (POC) Result Value Ref Range GLUCOSE UA (POCT) Negative Negative mg/dL BILIRUBIN UA (POCT) Negative Negative KETONE UA (POCT) Negative Negative mg/dL SPECIFIC GRAVITY UA (POCT) 1.025 1.005 - 1.030 HEMOGLOBIN/BLOOD UA (POCT) Small (A) Negative PH UA (POCT) 6.0 4.5 - 8.0 PROTEIN UA (POCT) 100 (A) Negative mg/dL UROBILINOGEN UA (POCT) 1.0 Normal E.U./dL NITRITE UA (POCT) Negative Negative LEUKOCYTES UA (POCT) Negative Negative COLOR UA (POCT) Dark yellow CLARITY UA (POCT) Slightly Cloudy Urine Culture: Pending Urine Cytology: Pending PROCEDURES: PVR 0 ml IMAGING: CT Urogram - pending ASSESSMENT/PLAN: 1. Gross hematuria (R31.0) - Recent onset of visible hematuria, described as a red tint in the urine, occurring 2-3 times over the past 6 months. Urinalysis today shows dark urine with hematuria and proteinuria, likely secondary to dehydration, diabetes, and BPH. Initiated a comprehensive workup to rule out potential causes such as kidney stones, renal tumors, or bladder tumors. Ordered urine culture and urine cytology; results expected by the end of the week. Scheduled CT urogram to be performed prior to cystoscopy. Patient instructed to discontinue metformin [address] scan due to potential interaction with IV contrast. Cystoscopy to be scheduled at [facility]; Shakira will coordinate scheduling. Emphasized the importance of completing the workup to rule out malignancy. 2. BPH associated with nocturia (N40.1) - Managed with tamsulosin 0.4 mg capsule at bedtime. Patient reports effective bladder emptying. Discussed that hematuria may be related to prostatic enlargement. Continue current medication regimen. 3. OAB (overactive bladder) (N32.81) - Managed with trospium (Sanctura) 20 mg tablet at bedtime. Reinforced the importance of adequate hydration to prevent urinary concentration and subsequent bladder irritation. Advised against restricting fluid intake as a method to control urgency. Monitor effectiveness of trospium; consider alternative treatments if symptoms persist. 4. Elevated PSA (R97.20) - Last PSA level in April 2024 was 4.33 ng/mL. Ordered repeat PSA test to be performed today to establish current baseline. Discussed that if PSA increases by more than 1.0 ng/mL, further evaluation with MRI of the prostate will be considered to rule out prostate cancer. Scheduled follow-up PSA test for next year. 5. PFD (pelvic floor dysfunction) (M62.89) - Patient continues pelvic floor physical therapy. Reinforced the benefits of pelvic floor exercises in managing urinary symptoms. Provided education on maintaining consistent fluid intake to support pelvic floor function. 6. Screening for genitourinary condition (Z13.89) - Comprehensive evaluation initiated to screen for potential genitourinary conditions contributing to hematuria. Ordered urine culture, urine cytology, CT urogram, and cystoscopy. Emphasized the importance of completing the diagnostic workup to ensure accurate diagnosis and appropriate management. New Diagnosis of unknown prognosis testing to follow CT Urogram to be scheduled at [facility] Cystoscopy to scheduled at [facility] - Urology they will contact patient # [phone] Urine Culture - Pending Urine Cytology - Pending > Follow-up to be determined by testing ordered today > Will contact patient with the Results & Recommendations once testing is completed Patient Instructions (AVS) - printed for patient - Continue tamsulosin (Tamulosin/Flomax) one capsule at bedtime. - Continue trospium (Santura) one tablet each evening before bed. - Drink enough fluids to keep your urine pale yellow; avoiding fluid restriction helps reduce bladder irritation. - Aim to drink regularly so you need to empty your bladder about every two hours. - Continue your pelvic floor physical therapy and Kegel exercises; if you need a new referral before the end of October, let us know. - PSA blood test has been ordered; you may have your blood drawn today at the lab (no fasting required). A follow-up PSA is scheduled for next year. - Urine culture and cytology were sent on today s sample; expect results by the end of this week. - Schedule a CT urogram of your kidneys, ureters, and bladder at the scheduling desk (down the young, two windows). Stop metformin two days before the scan as instructed on your prep sheet. - Shakira will call you at [phone] to arrange your cystoscopy (bladder scope) after your CT; you ve chosen the [place] office for this procedure. - We will review all test results with you; if everything is normal, plan to return in one year for routine follow-up. YUMIKO Coto, [place], YOUSIF Verified name and date of . CC Post Void Residual HPI: Charline Sanchez is a 69 year old male. The patient is here now for an appointment with YUMIKO Coto, EDA JOHNSON. Procedure: Explained procedure to patient and verbalizes understanding. Performed a PVR. Patient urinated and instructed to empty bladder as much as possible just prior to having PVR done using bladder ultrasound scanner. Results of scan: 0 mL The patient tolerated the procedure well. Plan: Appointment with Jaye. documented in this encounter [facility] 11-25-2024 Note HNO ID: [id number] Author: JAYE EID PA-C Service: ? Author Type: Physician Director Of Surgery Type: Progress Notes Filed: 11/25/2024 10:51 Note Text: [facility] PATIENT CLINIC NOTE (M) Some elements copied from his previous note, which have been updated where appropriate, and all reflect current medical decision making from date of this visit. Note was generated by [employer] and edited as appropriate SERVICE DATE: November 25, 2024 NAME: Charline Sanchez GENDER: male CHIEF COMPLAINT: history of BPH, presenting for follow-up and evaluation of hematuria. HISTORY OF PRESENT ILLNESS: The patient is a 69-year-old male with a history of BPH, presenting for follow-up and evaluation of hematuria. Hematuria: - Reports a red tint in urine, x2-3 times over the past 6 months. - Describes the tint as settling at the base of the toilet bowl, with the rest of the urine appearing clear. - Denies any recent episodes of hematuria today. - No history of recent kidney stones; had a kidney stone many years ago. BPH: - Taking tamsulosin 1 capsule at bedtime. - Taking trospium at bedtime for urgency and overactive bladder. - Continues pelvic floor physical therapy. - Last PSA in April 2024 was 4.33. - No current symptoms reported. > We discussed the common causes of urinary frequency and urgency, and restricting water intake In hopes to mitigate the need to urinate, we discussed how this behavior more often worsen the problem not improving it, > We discussed increasing daily water intake to 64-84 oz 7a -7p and try to reduce bladder irritants, caffeine, alcohol and acid foods and drink. > Bladder irritants handout available to patient. LABS: PSA (ng/mL) Date Value 04/07/2024 4.33 10/08/2023 4.03 03/08/2022 4.07 02/09/2021 4.46 PSA Screening (ng/mL) Date Value 03/28/2023 3.95 06/29/2020 4.67 Creatinine Date Value Ref Range Status 10/13/2024 0.95 0.73 - 1.22 mg/dL Final 04/07/2024 0.96 0.73 - 1.22 mg/dL Final 10/08/2023 0.89 0.73 - 1.22 mg/dL Final No results found for: TESTOST Hematocrit (%) Date Value 10/10/2023 48.8 06/29/2020 47.1 PSA (ng/mL) Date Value 04/07/2024 4.33 10/08/2023 4.03 03/08/2022 4.07 02/09/2021 4.46 PSA Screening (ng/mL) Date Value 03/28/2023 3.95 06/29/2020 4.67 MEDICATIONS: atorvastatin (LIPITOR) 20 mg tablet Take 1 tablet by mouth once daily. cholecalciferol, Vitamin D3, (VITAMIN D3) 1,250 mcg (50,000 unit) cap capsule Take 1 capsule by mouth one time a week. take with food Valsartan-hydroCHLOROthiazide (DIOVAN HCT) 80-12.5 mg per tablet Take 1 tablet by mouth once daily. gabapentin (NEURONTIN) 300 mg capsule By mouth: 300mg qam, 600mg qHS amLODIPine (NORVASC) 10 mg tablet Take 1 tablet by mouth once daily. donepezil (ARICEPT) 5 mg tablet Take 1 tablet by mouth daily at bedtime. metFORMIN (GLUCOPHAGE) 500 mg tablet Take 1 tablet by mouth two times a day with meals. cyclobenzaprine (FLEXERIL) 5 mg tablet Take 1 tablet by mouth three times a day. trospium (SANCTURA) 20 mg tablet Take 1 tablet by mouth once daily. tamsulosin (FLOMAX) 0.4 mg Take 2 capsules by mouth daily at bedtime. albuterol HFA (VENTOLIN HFA) 90 mcg/actuation inhaler Inhale 2 Puffs as instructed every 4 hours as needed for wheezing/shortness of breath. iv contrast (will be provided with radiology test) CT Urogram WO/W Inject, intravenously, once for 1 dose.No IV access, insert saline lock prior to the beginning of sedation, infusion, injection of imaging exam. Discontinue saline lock post exam. If Pt. has a central line or IVAD, may access for administration according to line specific nursing protocol. Once exam is complete flush line and de-access according to line specific nursing protocol in the CT contrast administration guidelines link. 0.9 % sodium chloride (NACL 0.9%) infusion Inject 150 mL/hr intravenously one time only for 1 dose. Administer at rate defined per CT contrast administration specifications. To be provided with radiology test. PAST MEDICAL HISTORY: PAST MEDICAL HISTORY Diagnosis Date BPH associated with nocturia Cervical radiculopathy Controlled type 2 diabetes mellitus without complication, without long-term current use of insulin ([facility]) 06/19/2014 06/19/14 HbA1c 8.1 DVT of lower limb, acute ([facility]) 07/13/2011 Elevated prostate specific antigen (PSA) 12/10/2023 Essential hypertension Hyperlipidemia LDL goal < 100 05/16/2013 Lumbar degenerative disc disease 07/09/2012 Memory changes Pappas's neuroma 05/16/2013 OAB (overactive bladder) 03/24/2024 Radiculopathy of lumbar region Sciatica Sebaceous cyst 10/16/2024 Skin lesion 10/16/2024 Superficial spreading malignant melanoma of skin (HCC) 12/03/2014 Vitamin D deficiency REVIEW OF SYSTEMS: Gastrointestinal: (+) bowel incontinence Genitourinary: (+) urinar (more content not included)... [facility] 11-25-2024 Note HNO ID: [id number] Author: KRISTEN SHELTON LPN Service: ? Author Type: LICENSED NURSE Type: Progress Notes Filed: 11/25/2024 10:51 Note Text: Verified name and date of . CC Post Void Residual HPI: Charline Sanchez is a 69 year old male. The patient is here now for an appointment with Jaye Eid, [place], [place], PA-COV. Procedure: Explained procedure to patient and verbalizes understanding. Performed a PVR. Patient urinated and instructed to empty bladder as much as possible just prior to having PVR done using bladder ultrasound scanner. Results of scan: 0 mL The patient tolerated the procedure well. Plan: Appointment with Jaye. [facility] 10-31-2024 Note HNO ID: [id number] Author: TRICIA ANTONIO MD Service: ? Author Type: Physician Type: Progress Notes Filed: 10/31/2024 08:16 Note Text: HISTORY AND PHYSICAL Charline Delcid Laura 1955 REFERRING PHYSICIAN: Viktor Ferrera MD CHIEF COMPLAINT: skin lesion HPI: The patient is a 69 year old male. The patient with a skin lesion on his right neck which has been present for some time and growing he also notes a sebaceous cyst of his mid back. This back cyst itches. He will occasionally squeeze it or push against the edge of his doorjamb until it drains. He wishes to have both sites removed. The patient was referred by Dr. Ferrera for removal of skin lesion and sebaceous cyst SIGNIFICANT MEDICAL PROBLEMS: PAST MEDICAL HISTORY Diagnosis Date BPH associated with nocturia Cervical radiculopathy Controlled type 2 diabetes mellitus without complication, without long-term current use of insulin (HCC) 06/19/2014 06/19/14 HbA1c 8.1 DVT of lower limb, acute (HCC) 07/13/2011 Elevated prostate specific antigen (PSA) 12/10/2023 Essential hypertension Hyperlipidemia LDL goal < 100 05/16/2013 Lumbar degenerative disc disease 07/09/2012 Memory changes Pappas's neuroma 05/16/2013 OAB (overactive bladder) 03/24/2024 Radiculopathy of lumbar region Sciatica Sebaceous cyst 10/16/2024 Skin lesion 10/16/2024 Superficial spreading malignant melanoma of skin (HCC) 12/03/2014 Vitamin D deficiency OPERATIONS: PAST SURGICAL HISTORY Procedure Laterality Date EXC SKIN MALIG >4CM REMAINDR BODY 04/16/2017 Squamous cell carcinoma completely excised clean margins MELANOMA OF SKIN EXCISION SYN RPT Left 2014 back MELANOMA OF SKIN EXCISION SYN RPT 04/16/2017 right posterior ear lesion [facility] TONSILLECTOMY PRIMARY/SECONDARY Tonsillectomy CURRENT MEDICATIONS: Current Outpatient Medications Medication Sig Dispense Refill atorvastatin (LIPITOR) 20 mg tablet Take 1 tablet by mouth once daily. 90 tablet 3 cholecalciferol, Vitamin D3, (VITAMIN D3) 1,250 mcg (50,000 unit) cap capsule Take 1 capsule by mouth one time a week. take with food 12 capsule 3 Valsartan-hydroCHLOROthiazide (DIOVAN HCT) 80-12.5 mg per tablet Take 1 tablet by mouth once daily. 90 tablet 3 gabapentin (NEURONTIN) 300 mg capsule By mouth: 300mg qam, 600mg qHS 90 capsule 2 amLODIPine (NORVASC) 10 mg tablet Take 1 tablet by mouth once daily. 90 tablet 3 donepezil (ARICEPT) 5 mg tablet Take 1 tablet by mouth daily at bedtime. 30 tablet 3 metFORMIN (GLUCOPHAGE) 500 mg tablet Take 1 tablet by mouth two times a day with meals. 180 tablet 3 cyclobenzaprine (FLEXERIL) 5 mg tablet Take 1 tablet by mouth three times a day. 12 tablet 0 trospium (SANCTURA) 20 mg tablet Take 1 tablet by mouth once daily. 90 tablet 1 tamsulosin (FLOMAX) 0.4 mg Take 2 capsules by mouth daily at bedtime. (Patient taking differently: Take 2 capsules by mouth daily at bedtime.) 180 capsule 3 albuterol HFA (VENTOLIN HFA) 90 mcg/actuation inhaler Inhale 2 Puffs as instructed every 4 hours as needed for wheezing/shortness of breath. 1 Each 0 No current facility-administered medications for this visit. ALLERGIES: Kidney Beans, Lisinopril, and Tyler Seed PERSONAL HISTORY: Social History Tobacco Use Smoking status: Never Smokeless tobacco: Never Vaping Use Vaping status: Never Used Substance Use Topics Alcohol use: Yes Comment: Occassionally Drug use: Never FAMILY HISTORY: FAMILY HISTORY Problem Relation Age of Onset Arthritis Mother knees,hips,lumbar spine Diabetes Mother Dementia Mother Heart Father valve other (electrical injury) Brother other (Memory issues) Brother other (Lower back injury) Brother No Known Problems Maternal Grandmother No Known Problems Maternal Grandfather No Known Problems Paternal Grandmother No Known Problems Paternal Grandfather REVIEW OF SYMPTOMS: The review of systems data was entered by the nurse and reviewed by me There are no exam notes on file for this visit. PHYSICAL EXAMINATION: General: The patient is 69 year old male, well nourished, well hydrated in no acute distress. The patient is oriented to time, place, and person. VITALS: Blood pressure 120/74, pulse 74, temperature 36.6 ?C (97.9 ?F), temperature source Temporal, resp. rate 14, height 172.7 cm (5' 8), weight 90.7 kg (200 lb), SpO2 95%. Body mass index is 30.41 kg/m?. HEENT: Normal cephalic, ataumatic, pupils are equally round, sclera are anicteric, mucous membranes are moist, oropharynx is clear. Neck has no masses, asymmetry or lymphadenopathy. Thyroid is unremarkable. -Right lateral neck-1 cm skin lesion unknown etiology Respiratory: Clear to auscultation and percussion. Normal respiratory excursion and pattern. Cardiac: Examination is regular rate and rhythm. Abdominal exam: Soft, nontender, with no palpable masses. No hepatosplenomegaly. No palpable hernias. Rectal exam: exam defe (more content not included)... [facility] 10-31-2024 History of Present illness Narrative HISTORY AND PHYSICAL Charline Delcid Laura 1955 REFERRING PHYSICIAN: Viktor Ferrera MD CHIEF COMPLAINT: skin lesion HPI: The patient is a 69 year old male. The patient with a skin lesion on his right neck which has been present for some time and growing he also notes a sebaceous cyst of his mid back. This back cyst itches. He will occasionally squeeze it or push against the edge of his doorjamb until it drains. He wishes to have both sites removed. The patient was referred by Dr. Ferrera for removal of skin lesion and sebaceous cyst SIGNIFICANT MEDICAL PROBLEMS: PAST MEDICAL HISTORY Diagnosis Date BPH associated with nocturia Cervical radiculopathy Controlled type 2 diabetes mellitus without complication, without long-term current use of insulin ([facility]) 06/19/2014 06/19/14 HbA1c 8.1 DVT of lower limb, acute (HCC) 07/13/2011 Elevated prostate specific antigen (PSA) 12/10/2023 Essential hypertension Hyperlipidemia LDL goal < 100 05/16/2013 Lumbar degenerative disc disease 07/09/2012 Memory changes Pappas's neuroma 05/16/2013 OAB (overactive bladder) 03/24/2024 Radiculopathy of lumbar region Sciatica Sebaceous cyst 10/16/2024 Skin lesion 10/16/2024 Superficial spreading malignant melanoma of skin (HCC) 12/03/2014 Vitamin D deficiency OPERATIONS: PAST SURGICAL HISTORY Procedure Laterality Date EXC SKIN MALIG >4CM REMAINDR BODY 04/16/2017 Squamous cell carcinoma completely excised clean margins MELANOMA OF SKIN EXCISION SYN RPT Left 2015 back MELANOMA OF SKIN EXCISION SYN RPT 04/16/2017 right posterior ear lesion [facility] TONSILLECTOMY PRIMARY/SECONDARY <AGE 12 Tonsillectomy CURRENT MEDICATIONS: Current Outpatient Medications Medication Sig Dispense Refill atorvastatin (LIPITOR) 20 mg tablet Take 1 tablet by mouth once daily. 90 tablet 3 cholecalciferol, Vitamin D3, (VITAMIN D3) 1,250 mcg (50,000 unit) cap capsule Take 1 capsule by mouth one time a week. take with food 12 capsule 3 Valsartan-hydroCHLOROthiazide (DIOVAN HCT) 80-12.5 mg per tablet Take 1 tablet by mouth once daily. 90 tablet 3 gabapentin (NEURONTIN) 300 mg capsule By mouth: 300mg qam, 600mg qHS 90 capsule 2 amLODIPine (NORVASC) 10 mg tablet Take 1 tablet by mouth once daily. 90 tablet 3 donepezil (ARICEPT) 5 mg tablet Take 1 tablet by mouth daily at bedtime. 30 tablet 3 metFORMIN (GLUCOPHAGE) 500 mg tablet Take 1 tablet by mouth two times a day with meals. 180 tablet 3 cyclobenzaprine (FLEXERIL) 5 mg tablet Take 1 tablet by mouth three times a day. 12 tablet 0 trospium (SANCTURA) 20 mg tablet Take 1 tablet by mouth once daily. 90 tablet 1 tamsulosin (FLOMAX) 0.4 mg Take 2 capsules by mouth daily at bedtime. (Patient taking differently: Take 2 capsules by mouth daily at bedtime.) 180 capsule 3 albuterol HFA (VENTOLIN HFA) 90 mcg/actuation inhaler Inhale 2 Puffs as instructed every 4 hours as needed for wheezing/shortness of breath. 1 Each 0 No current facility-administered medications for this visit. ALLERGIES: Kidney Beans, Lisinopril, and Tyler Seed PERSONAL HISTORY: Social History Tobacco Use Smoking status: Never Smokeless tobacco: Never Vaping Use Vaping status: Never Used Substance Use Topics Alcohol use: Yes Comment: Occassionally Drug use: Never FAMILY HISTORY: FAMILY HISTORY Problem Relation Age of Onset Arthritis Mother knees,hips,lumbar spine Diabetes Mother Dementia Mother Heart Father valve other (electrical injury) Brother other (Memory issues) Brother other (Lower back injury) Brother No Known Problems Maternal Grandmother No Known Problems Maternal Grandfather No Known Problems Paternal Grandmother No Known Problems Paternal Grandfather REVIEW OF SYMPTOMS: The review of systems data was entered by the nurse and reviewed by me There are no exam notes on file for this visit. PHYSICAL EXAMINATION: General: The patient is 69 year old male, well nourished, well hydrated in no acute distress. The patient is oriented to time, place, and person. VITALS: Blood pressure 120/74, pulse 74, temperature 36.6 C (97.9 F), temperature source Temporal, resp. rate 14, height 172.7 cm (5' 8), weight 90.7 kg (200 lb), SpO2 95%. Body mass index is 30.41 kg/m . HEENT: Normal cephalic, ataumatic, pupils are equally round, sclera are anicteric, mucous membranes are moist, oropharynx is clear. Neck has no masses, asymmetry or lymphadenopathy. Thyroid is unremarkable. -Right lateral neck-1 cm skin lesion unknown etiology Respiratory: Clear to auscultation and percussion. Normal respiratory excursion and pattern. Cardiac: Examination is regular rate and rhythm. Abdominal exam: Soft, nontender, with no palpable masses. No hepatosplenomegaly. No palpable hernias. Rectal exam: exam deferred Extremities: no clubbing, cyanosis or edema. No adenopathy. Other: Mid back-sebaceous cyst that currently looks mildly erythematous without debbie infection LABORATORY VALUES: As Noted RADIOLOGIC STUDIES: As Noted Assessment IMPRESSION: SKIN LESION -neck and SEBCEOUS CYST -back PLAN: Charline will return for excision of the skin lesion at a later date. The patient is instructed not to take aspirin for 1 week prior to the procedure. He is also instructed not to try to express the skin lesion on his back such that it does not look inflamed prior to attempted excision. We discussed that it we excised this when it had been squeezed and informed that it increased risk of infection and challenges in attempting to remove. Information was returned to Dr. Ferrera via this note. Diagnoses: (L72.3) Sebaceous cyst (L98.9) Skin lesion Return to Clinic: The patient is instructed to follow-up with me in 3-4 weeks. Tricia Antonio MD REVIEW OF SYSTEMS: General: The patient denies fatigue, denies weight loss, denies weight gain, denies feeling hot, and denies feelings of cold. Eyes: The patient denies glaucoma, denies eye injury/surgery, wears glasses or contacts. Ear/Nose/Throat: The patient notes allergies, denies hayfever, denies ear infections, and denies bloody noses. Cardiovascular: The patient denies chest pain, denies heart disease, notes high blood pressure,denies cardiac stent, denies prior heart attack, denies irregular heart beat, notes high cholesterol, denies poor circulation, denies heart failure, other cardiac issues, denies claudication, denies cold feet, denies peripheral arterial stent. Respiratory: The patient denies tuberculosis, denies pneumonia, denies frequent cough, denies pulmonary embolism, denies shortness of breath, and denies coughing up blood. Gastrointestinal: The patient denies difficulty swallowing, denies acid reflux, denies ulcers, denies vomiting, denies jaundice/hepatitis, denies gallbladder problems, denies black or tarry stools, notes hemorrhoids, denies bleeding from rectum, denies diverticulitis, notes constipation, denies diarrhea, denies loss of stool control, and denies hernias. Kidney/Bladder: The patient denies kidney stones, denies urine infections, and notes bloody urine. Skin: The patient denies a history of skin cancer, denies bleeding/changing moles, and denies a history of skin rash. Neurologic: The patient denies a history of epilepsy/convulsions, denies headaches, denies head/spinal injuries, and denies stroke/TIA. Psychiatric: The patient denies psychiatric medications, denies depression, and denies voices, denies substance abuse. Endocrine: The patient denies thyroid disorders, notes diabetes, and denies hormonal problems. Hematologic: The patient denies a history of bruising, denies bleeding, and denies anemia, notes blood clots. Infections: The patient denies a history of measles and mumps, denies rheumatic fever, and denies sexually transmitted diseases. Musculoskeletal: The patient denies back pain/injury, notes back problems, denies sciatica, denies knee/foot trouble, denies arthritis, or denies gout. When was patient's last Mammogram screening? N/A Last Colonoscopy: Never Kristen Shelton LPN documented in this encounter [facility] 10-30-2024 Note HNO ID: [id number] Author: KRISTEN SHELTON LPN Service: ? Author Type: LICENSED NURSE Type: Progress Notes Filed: 10/31/2024 08:16 Note Text: REVIEW OF SYSTEMS: General: The patient denies fatigue, denies weight loss, denies weight gain, denies feeling hot, and denies feelings of cold. Eyes: The patient denies glaucoma, denies eye injury/surgery, wears glasses or contacts. Ear/Nose/Throat: The patient notes allergies, denies hayfever, denies ear infections, and denies bloody noses. Cardiovascular: The patient denies chest pain, denies heart disease, notes high blood pressure,denies cardiac stent, denies prior heart attack, denies irregular heart beat, notes high cholesterol, denies poor circulation, denies heart failure, other cardiac issues, denies claudication, denies cold feet, denies peripheral arterial stent. Respiratory: The patient denies tuberculosis, denies pneumonia, denies frequent cough, denies pulmonary embolism, denies shortness of breath, and denies coughing up blood. Gastrointestinal: The patient denies difficulty swallowing, denies acid reflux, denies ulcers, denies vomiting, denies jaundice/hepatitis, denies gallbladder problems, denies black or tarry stools, notes hemorrhoids, denies bleeding from rectum, denies diverticulitis, notes constipation, denies diarrhea, denies loss of stool control, and denies hernias. Kidney/Bladder: The patient denies kidney stones, denies urine infections, and notes bloody urine. Skin: The patient denies a history of skin cancer, denies bleeding/changing moles, and denies a history of skin rash. Neurologic: The patient denies a history of epilepsy/convulsions, denies headaches, denies head/spinal injuries, and denies stroke/TIA. Psychiatric: The patient denies psychiatric medications, denies depression, and denies voices, denies substance abuse. Endocrine: The patient denies thyroid disorders, notes diabetes, and denies hormonal problems. Hematologic: The patient denies a history of bruising, denies bleeding, and denies anemia, notes blood clots. Infections: The patient denies a history of measles and mumps, denies rheumatic fever, and denies sexually transmitted diseases. Musculoskeletal: The patient denies back pain/injury, notes back problems, denies sciatica, denies knee/foot trouble, denies arthritis, or denies gout. When was patient's last Mammogram screening? N/A Last Colonoscopy: Never Kristen Shelton LPN [facility] 10-16-2024 History of Present illness Narrative Chief Complaint Patient presents with: F/U 6 Month HPI Charline Sanchez is a 69 year old male who presents here today for 6 month follow up. Here today for her routine follow up. Doing pelvic floor therapy for incontinence; this is helping. Has occ constipation, will use Miralax prn. Follows with Urology for BPH, taking Flomax 0.4 mg 2 pills daily and Sanctura 20 mg daily. Lipid: Does try to watch diet and exercise as much as he can. Tries to stay busy and exercise the best he can. Does have radicular back issues. Taking Lipitor 20 mg daily. Vit D - Deficient, taking Vitamin D3 50,000 international unit(s) once weekly. DM: Is on Metformin 500 mg 1 pill BID. Denies checking BS at home. No hypoglycemic episodes unless he goes too long without eating. Notes tingling in his legs/feet, but possibly related to his back issues. HTN: Denies checking BP at home. No chest pains, dizziness, or SOB. Taking Diovan 80-12.5 mg daily and Norvasc 10 mg daily. Follows with Psychologist Jesse Morales and Neuro Dr. Pace for cognitive impairment. Is taking Gabapentin 300 mg 1 pill BID. Was started on Aricept 5 mg once daily. Hx of DDD in his lumbar area and radiculopathy in lumbar. Skin: lesion right side neck for 1-2 years; tiffanie cyst right mid back that gets itchy and drains occ. HM - Declines Flu and Covid vaccine. Denies having Adv Dir/Living Will. Declines Hep C screening. Anxiety/Depression screening completed, negative. Past medical history, appointments, medications, allergies reviewed. Previous Medical History PAST MEDICAL HISTORY Diagnosis Date BPH associated with nocturia Controlled type 2 diabetes mellitus without complication, without long-term current use of insulin (HCC) 06/19/2014 06/19/14 HbA1c 8.1 DVT of lower limb, acute (HCC) 07/13/2011 Elevated prostate specific antigen (PSA) 12/10/2023 Hyperlipidemia LDL goal < 100 05/16/2013 Lumbar degenerative disc disease 07/09/2012 Pappas's neuroma 05/16/2013 OAB (overactive bladder) 03/24/2024 Sciatica Superficial spreading malignant melanoma of skin (HCC) 12/03/2014 Previous Surgical History PAST SURGICAL HISTORY Procedure Laterality Date EXC SKIN MALIG >4CM REMAINDR BODY 04/16/2017 Squamous cell carcinoma completely excised clean margins MELANOMA OF SKIN EXCISION SYN RPT Left 2014 back MELANOMA OF SKIN EXCISION SYN RPT 04/16/2017 right posterior ear lesion [facility] TONSILLECTOMY PRIMARY/SECONDARY <AGE 12 Tonsillectomy Family History FAMILY HISTORY Problem Relation Age of Onset Heart Father valve Arthritis Mother knees,hips,lumbar spine Diabetes Mother other (electrical injury) Brother other (unknown) Brother Patient Allergies ALLERGIES Allergen Reactions Kidney Beans GI Upset Lisinopril Cough Tyler Seed Other: See Comments Adverse taste in mouth Current Medications Current Outpatient Medications on File Prior to Visit Medication Sig metFORMIN (GLUCOPHAGE) 500 mg tablet Take 1 tablet by mouth two times a day with meals. cyclobenzaprine (FLEXERIL) 5 mg tablet Take 1 tablet by mouth three times a day. trospium (SANCTURA) 20 mg tablet Take 1 tablet by mouth once daily. tamsulosin (FLOMAX) 0.4 mg Take 2 capsules by mouth daily at bedtime. atorvastatin (LIPITOR) 20 mg tablet Take 1 tablet by mouth once daily. amLODIPine (NORVASC) 10 mg tablet Take 1 tablet by mouth once daily. cholecalciferol, Vitamin D3, (VITAMIN D3) 1,250 mcg (50,000 unit) cap capsule Take 1 capsule by mouth one time a week. take with food Valsartan-hydroCHLOROthiazide (DIOVAN HCT) 80-12.5 mg per tablet Take 1 tablet by mouth once daily. gabapentin (NEURONTIN) 300 mg capsule By mouth: 300mg qam, 600mg qHS (Patient taking differently: Patient takes 300 MG by mouth twice daily) albuterol HFA (VENTOLIN HFA) 90 mcg/actuation inhaler Inhale 2 Puffs as instructed every 4 hours as needed for wheezing/shortness of breath. (Patient not taking: Reported on 05/21/2024) No current facility-administered medications on file prior to visit. Social History Social History Tobacco Use Smoking status: Never Smokeless tobacco: Never Vaping Use Vaping status: Never Used Substance Use Topics Alcohol use: Not Currently Comment: occassionally Drug use: Never EXAM: BP 126/80 (BP Site: Right Arm, BP Position: Sitting, BP Cuff Size: Regular Adult) Pulse 68 Resp 18 Wt 92 kg (202 lb 13.2 oz) BMI 30.84 kg/m General Appearance: Well appearing, alert, in no acute distress, well-hydrated, well nourished.. Skin: raised pearly hard lesion right neck; inflamed tiffanie cyst right mid back, no drainage at this time. Lungs: Lungs clear to auscultation. No wheezing, rhonchi, rales.. Heart: RRR without murmur, gallop, or rubs. No ectopy. Health Maintenance List Hepatitis C Screening Never done Pneumococcal Vaccine: 50+(1 of 2 - PCV) Never done Shingrix Vaccine(1 of 2) Never done Diabetic Foot Exam due on 07/06/2021 Influenza Vaccine(1) due on 03/02/2024 Covid-19 Vaccine( season) due on 03/02/2024 Advance Directive Discussion due on 07/02/2024 Depression Screening due on 10/09/2024 Anxiety Screening due on 10/09/2024 Dilated Retinal Exam due on 02/11/2025 HbA1C due on 04/14/2025 Annual PCP Team Chronic Disease Visit due on 05/22/2025 BP Controlled (<130/80) due on 10/08/2025 Urine Albumin:Creatinine Ratio due on 10/13/2025 LDL Cholesterol due on 10/13/2025 Colorectal Cancer Screening due on 04/26/2027 RSV Vaccine(1 - 1-dose 75+ series) due on 2029 DTaP,Tdap,Td Vaccine(5 - Td or Tdap) due on 03/19/2031 Data reviewed Appointment on 10/13/2024 Component Date Value Protein, Total 10/13/2024 7.0 Albumin 10/13/2024 4.0 Calcium, Total 10/13/2024 9.2 Bilirubin, Total 10/13/2024 0.9 Alkaline Phosphatase 10/13/2024 91 AST 10/13/2024 19 ALT 10/13/2024 15 Glucose 10/13/2024 117 (H) BUN 10/13/2024 24 Creatinine 10/13/2024 0.95 Sodium 10/13/2024 139 Potassium 10/13/2024 3.7 Chloride 10/13/2024 100 CO2 10/13/2024 30 Anion Gap 10/13/2024 9 Estimated Glomerular Mahesh* 10/13/2024 86 Cholesterol, Total 10/13/2024 139 Triglyceride 10/13/2024 68 HDL Cholesterol 10/13/2024 38 (L) Non HDL Cholesterol 10/13/2024 101 Fasting Time 10/13/2024 12 VLDL Cholesterol 10/13/2024 14 TC:HDL Ratio 10/13/2024 3.66 LDL Cholesterol 10/13/2024 87 LDL:HDL Ratio 10/13/2024 2.29 Vitamin D 25 Hydroxy 10/13/2024 63.0 Hemoglobin A1C 10/13/2024 6.7 (H) Estimated Average Glucose 10/13/2024 146 ASSESSMENT/PLAN: 1. Controlled type 2 diabetes mellitus without complication, without long-term current use of insulin (HCC) - ICD9: 250.00, ICD10: E11.9 (primary diagnosis) - Controlled - Continue current medications - Counseled on healthy diet and regular exercise 2. Essential hypertension - ICD9: 401.9, ICD10: I10 - Controlled - Continue current medications - Recommend home blood pressure monitoring, to bring results to next visit - Encouraged sodium restriction, DASH or Mediterranean diet - Recommend regular aerobic exercise - VALSARTAN 80 MG-HYDROCHLOROTHIAZIDE 12.5 MG TABLET - AMLODIPINE 10 MG TABLET - COMPREHENSIVE METABOLIC PANEL - LIPID PANEL, FASTING - COMPLETE BLOOD COUNT 3. Hyperlipidemia with target LDL less than 100 - ICD9: 272.4, ICD10: E78.5 - Controlled - Continue current medications - Counseled on healthy diet and regular exercise - ATORVASTATIN 20 MG TABLET - COMPREHENSIVE METABOLIC PANEL - LIPID PANEL, FASTING 4. Vitamin D deficiency - ICD9: 268.9, ICD10: E55.9 - CHOLECALCIFEROL (VITAMIN D3) 1,250 MCG (50,000 UNIT) CAPSULE 5. Elevated PSA - ICD9: 790.93, ICD10: R97.20 Follow with Urology 6. BPH associated with nocturia - ICD9: 600.01, 788.43, ICD10: N40.1, R35.1 Urology 7. Memory changes - ICD9: 780.93, ICD10: R41.3 Follow with Neuro 8. Radiculopathy of lumbar region - ICD9: 724.4, ICD10: M54.16 9. Cervical radiculopathy - ICD9: 723.4, ICD10: M54.12 10. DM (diabetes mellitus), type 2 with neurological complications (HCC) - ICD9: 250.60, ICD10: E11.49 - ATORVASTATIN 20 MG TABLET - GABAPENTIN 300 MG CAPSULE - COMPREHENSIVE METABOLIC PANEL - LIPID PANEL, FASTING - HEMOGLOBIN A1C 11. Screening for depression - ICD9: V79.0, ICD10: Z13.31 - DEPRESSION SCREENING 12. Encounter for screening examination for other mental health and behavioral disorders - ICD9: V79.8, ICD10: Z13.39 - ANXIETY SCREENING 13. Sebaceous cyst - ICD9: 706.2, ICD10: L72.3 - CONSULT TO GENERAL SURGERY 14. Skin lesion - ICD9: 709.9, ICD10: L98.9 - CONSULT TO GENERAL SURGERY Follow up in 6 months Medical Decision Making: Problems: Low: Acute, uncomplicated illness or injury Moderate: 2+ stable chronic illnesses Data: Unique test result(s) reviewed: 3+ Unique test(s) ordered: 3+ Risk: Moderate: Drug management Medical Decision Making Level: 4 - Moderate Viktor Ferrera MD documented in this encounter [facility] 10-16-2024 Note HNO ID: [id number] Author: VIKTOR FERRERA MD Service: ? Author Type: Physician Type: Progress Notes Filed: 10/16/2024 09:38 Note Text: Chief Complaint Patient presents with: F/U 6 Month HPI Charline Sanchez is a 69 year old male who presents here today for 6 month follow up. Here today for her routine follow up. Doing pelvic floor therapy for incontinence; this is helping. Has occ constipation, will use Miralax prn. Follows with Urology for BPH, taking Flomax 0.4 mg 2 pills daily and Sanctura 20 mg daily. Lipid: Does try to watch diet and exercise as much as he can. Tries to stay busy and exercise the best he can. Does have radicular back issues. Taking Lipitor 20 mg daily. Vit D - Deficient, taking Vitamin D3 50,000 international unit(s) once weekly. DM: Is on Metformin 500 mg 1 pill BID. Denies checking BS at home. No hypoglycemic episodes unless he goes too long without eating. Notes tingling in his legs/feet, but possibly related to his back issues. HTN: Denies checking BP at home. No chest pains, dizziness, or SOB. Taking Diovan 80-12.5 mg daily and Norvasc 10 mg daily. Follows with Psychologist Jesse Morales and Neuro Dr. Pace for cognitive impairment. Is taking Gabapentin 300 mg 1 pill BID. Was started on Aricept 5 mg once daily. Hx of DDD in his lumbar area and radiculopathy in lumbar. Skin: lesion right side neck for 1-2 years; tiffanie cyst right mid back that gets itchy and drains occ. HM - Declines Flu and Covid vaccine. Denies having Adv Dir/Living Will. Declines Hep C screening. Anxiety/Depression screening completed, negative. Past medical history, appointments, medications, allergies reviewed. Previous Medical History PAST MEDICAL HISTORY Diagnosis Date BPH associated with nocturia Controlled type 2 diabetes mellitus without complication, without long-term current use of insulin (HCC) 06/19/2014 06/19/14 HbA1c 8.1 DVT of lower limb, acute (HCC) 07/13/2011 Elevated prostate specific antigen (PSA) 12/10/2023 Hyperlipidemia LDL goal < 100 05/16/2013 Lumbar degenerative disc disease 07/09/2012 Pappas's neuroma 05/16/2013 OAB (overactive bladder) 03/24/2024 Sciatica Superficial spreading malignant melanoma of skin (HCC) 12/03/2014 Previous Surgical History PAST SURGICAL HISTORY Procedure Laterality Date EXC SKIN MALIG >4CM REMAINDR BODY 04/16/2017 Squamous cell carcinoma completely excised clean margins MELANOMA OF SKIN EXCISION SYN RPT Left 2015 back MELANOMA OF SKIN EXCISION SYN RPT 04/16/2017 right posterior ear lesion [facility] TONSILLECTOMY PRIMARY/SECONDARY Tonsillectomy Family History FAMILY HISTORY Problem Relation Age of Onset Heart Father valve Arthritis Mother knees,hips,lumbar spine Diabetes Mother other (electrical injury) Brother other (unknown) Brother Patient Allergies ALLERGIES Allergen Reactions Kidney Beans GI Upset Lisinopril Cough Tyler Seed Other: See Comments Adverse taste in mouth Current Medications Current Outpatient Medications on File Prior to Visit Medication Sig metFORMIN (GLUCOPHAGE) 500 mg tablet Take 1 tablet by mouth two times a day with meals. cyclobenzaprine (FLEXERIL) 5 mg tablet Take 1 tablet by mouth three times a day. trospium (SANCTURA) 20 mg tablet Take 1 tablet by mouth once daily. tamsulosin (FLOMAX) 0.4 mg Take 2 capsules by mouth daily at bedtime. atorvastatin (LIPITOR) 20 mg tablet Take 1 tablet by mouth once daily. amLODIPine (NORVASC) 10 mg tablet Take 1 tablet by mouth once daily. cholecalciferol, Vitamin D3, (VITAMIN D3) 1,250 mcg (50,000 unit) cap capsule Take 1 capsule by mouth one time a week. take with food Valsartan-hydroCHLOROthiazide (DIOVAN HCT) 80-12.5 mg per tablet Take 1 tablet by mouth once daily. gabapentin (NEURONTIN) 300 mg capsule By mouth: 300mg qam, 600mg qHS (Patient taking differently: Patient takes 300 MG by mouth twice daily) albuterol HFA (VENTOLIN HFA) 90 mcg/actuation inhaler Inhale 2 Puffs as instructed every 4 hours as needed for wheezing/shortness of breath. (Patient not taking: Reported on 05/21/2024) No current facility-administered medications on file prior to visit. Social History Social History Tobacco Use Smoking status: Never Smokeless tobacco: Never Vaping Use Vaping status: Never Used Substance Use Topics Alcohol use: Not Currently Comment: occassionally Drug use: Never EXAM: BP 126/80 (BP Site: Right Arm, BP Position: Sitting, BP Cuff Size: Regular Adult) Pulse 68 Resp 18 Wt 92 kg (202 lb 13.2 oz) BMI 30.84 kg/m? General Appearance: Well appearing, alert, in no acute distress, well-hydrated, well nourished.. Skin: raised pearly hard lesion right neck; inflamed tiffanie cyst right mid back, no drainage at this time. Lungs: Lungs clear to auscultation. No wheezing, rhonchi, rales.. Heart: RRR without murmur, gallop, or rubs. No ectopy. Health Maintenance List Hepatitis C Scre (more content not included)... [facility] 10-08-2024 Instructions Mali Modi PA-C - 10/08/2024 4:14 PM EDT Will try aricept 5mg at bedtime (if you have vivid dreams, you can't take it in the morning) Stay physically and cognitively active. Follow up in 4 months documented in this encounter [facility] 10-08-2024 Note HNO ID: [id number] Author: MALI MODI PA-C Service: ? Author Type: Physician Director Of Surgery Type: Progress Notes Filed: 10/08/2024 17:10 Note Text: [facility] Name: Charline Sanchez Age: [age] year old Gender: male Primary Care Provider: Viktor Ferrera MD 10/08/2024 - General Neurology, Mali Modi PA-C ASSESSMENT ASSESSMENT/PLAN: 1. MCI (mild cognitive impairment) - ICD9: 331.83, ICD10: G31.84 (primary diagnosis) 2. Memory loss - ICD9: 780.93, ICD10: R41.3 Patient with some mild worsening of his short-term memory subjectively since last appointment. Previous MRI showing significant hippocampal atrophy and neuropsychological testing consistent with mild cognitive impairment. Deferred medications at previous appointment as well as brain health evaluation. Unfortunately due to time unable to perform a repeat MoCA today we did discuss medications and patient would like to try them. Discussed Aricept and will start at 5 mg, no history of heart block or other arrhythmia. Is currently on amlodipine with heart rate at 67 today. Discussed that Aricept can lower the heart rate so if he has any fatigue or lightheadedness to stop the medication let me know. Patient has a follow-up with primary care next week and will have repeat vitals at that time. Encouraged other conservative therapy as well including increasing physical and cognitive activity. No new concerns that would warrant additional workup at this time. Will have patient follow-up in 3 to 4 months for repeat MoCA and evaluation. Patient agreeable to treatment plan of care at this time, questions were answered. Mali Modi PA-C Alzheimer's Society: Join to learn about many resources and supports for you, as the caregiver Community Resources: E.g. LIFE - A Dementia Friendly [facility] [place] on the [place] [facility]. MARKET SUPERINTENDENT/OT/PT: Speech therapy, Occupational therapy, Physical Therapy Driving: Do you have safety concerns? Power of Fabric Sourcer/ planning of the patient's will Project Lifesaver: Local police will keep records of your loved one if they tend to get lost, and will bring them home. Lifeline: emergency response button/necklace/bracelet Caregiver Health: Important to ensure you are taking care of your mental and physical health so you can care for your loved one SW consult: Do you want a social work referral to understand what resources are available to you? This is a 69 year old male followed for memory loss, MCI. Current medication treatment: none Indication for repeat cognitive testing: No Encounter Diagnosis ICD-10-CM 1. MCI (mild cognitive impairment) G31.84 2. Memory loss R41.3 Return in about 4 months (around 02/07/2025). Chart, labs,and relevant images reviewed. Chief Complaint:Patient presents with: Established Patient: MCI, memory loss- c/o symtpoms Chart Review: Last Filed Values Date of Most Recent Assessment and Plan 04/09/24 Specialty General Neurology Assessment ASSESSMENT/PLAN: 1. MCI (mild cognitive impairment) - ICD9: 331.83, ICD10: G31.84 (primary diagnosis) 2. Memory loss - ICD9: 780.93, ICD10: R41.3 Patient with progressive memory loss over the last few years, normal laboratory evaluation including B12 and folate. MRI of the brain with volumetric analysis was ordered and did show hippocampal volumes in the 18th percentile otherwise no significant atrophy or abnormalities intracranially. Neuropsychological testing was ordered as well and showed signs of mild cognitive impairment. Discussed these results at length with patient and family, discussed that there could be an neurodegenerative process like Alzheimer's disease or other dementia due to hippocampal atrophy. However, discussed that there is further testing that can be done for with a referral to brain health to get closer to her diagnosis. At this time, patient deferring this but would like to think about it at home. Does have history of B12 deficiency, B12 in September was at 435 and I discussed that a supplement could be beneficial if he is no longer supplementing at this time but did discuss he does not have a B12 deficiency based off this result. At this time, patient would like to see how he does with conservative therapy including increasing physical and cognitive activity and follow-up in 6 months to see how he does. Encouraged him to reach out with any new concerns or if he would like a referral to brain health at any time. Patient and family agree andunderstand. Mali Modi PA-C HPI: Last seen for memory loss on 04/09/24, hippocampus in the 18th percentile. Neuropsych showed MCI. Deferred referral to brain health. No meds. Patient presents for follow-up appointment for memory. Notes that maybe short-term memory has been a bit worse since last appointment, forgetting his keys around the house, forgetting names at work. Still able to function at work.Try (more content not included)... [facility] 10-08-2024 History of Present illness Narrative Images from the original note were not included. [facility] Name: Charline Sanchez Age: [age] year old Gender: male Primary Care Provider: Viktor Ferrera MD 10/08/2024 - General Neurology, Mali Modi PA-C ASSESSMENT ASSESSMENT/PLAN: 1. MCI (mild cognitive impairment) - ICD9: 331.83, ICD10: G31.84 (primary diagnosis) 2. Memory loss - ICD9: 780.93, ICD10: R41.3 Patient with some mild worsening of his short-term memory subjectively since last appointment. Previous MRI showing significant hippocampal atrophy and neuropsychological testing consistent with mild cognitive impairment. Deferred medications at previous appointment as well as brain health evaluation. Unfortunately due to time unable to perform a repeat MoCA today we did discuss medications and patient would like to try them. Discussed Aricept and will start at 5 mg, no history of heart block or other arrhythmia. Is currently on amlodipine with heart rate at 67 today. Discussed that Aricept can lower the heart rate so if he has any fatigue or lightheadedness to stop the medication let me know. Patient has a follow-up with primary care next week and will have repeat vitals at that time. Encouraged other conservative therapy as well including increasing physical and cognitive activity. No new concerns that would warrant additional workup at this time. Will have patient follow-up in 3 to 4 months for repeat MoCA and evaluation. Patient agreeable to treatment plan of care at this time, questions were answered. Mali Modi PA-C Alzheimer's Society: Join to learn about many resources and supports for you, as the caregiver Community Resources: E.g. [employer] - A Dementia Friendly [facility] [place] on the [place] [facility]. MARKET SUPERINTENDENT/OT/PT: Speech therapy, Occupational therapy, Physical Therapy Driving: Do you have safety concerns? Power of Fabric Sourcer/ planning of the patient's will Project Lifesaver: Local police will keep records of your loved one if they tend to get lost, and will bring them home. Lifeline: emergency response button/necklace/bracelet Caregiver Health: Important to ensure you are taking care of your mental and physical health so you can care for your loved one SW consult: Do you want a social work referral to understand what resources are available to you? This is a 69 year old male followed for memory loss, MCI. Current medication treatment: none Indication for repeat cognitive testing: No Encounter Diagnosis ICD-10-CM 1. MCI (mild cognitive impairment) G31.84 2. Memory loss R41.3 Return in about 4 months (around 02/07/2025). Chart, labs,and relevant images reviewed. Chief Complaint:Patient presents with: Established Patient: MCI, memory loss- c/o symtpoms Chart Review: Last Filed Values Date of Most Recent Assessment and Plan 04/09/24 Specialty General Neurology Assessment ASSESSMENT/PLAN: 1. MCI (mild cognitive impairment) - ICD9: 331.83, ICD10: G31.84 (primary diagnosis) 2. Memory loss - ICD9: 780.93, ICD10: R41.3 Patient with progressive memory loss over the last few years, normal laboratory evaluation including B12 and folate. MRI of the brain with volumetric analysis was ordered and did show hippocampal volumes in the 18th percentile otherwise no significant atrophy or abnormalities intracranially. Neuropsychological testing was ordered as well and showed signs of mild cognitive impairment. Discussed these results at length with patient and family, discussed that there could be an neurodegenerative process like Alzheimer's disease or other dementia due to hippocampal atrophy. However, discussed that there is further testing that can be done for with a referral to brain health to get closer to her diagnosis. At this time, patient deferring this but would like to think about it at home. Does have history of B12 deficiency, B12 in September was at 435 and I discussed that a supplement could be beneficial if he is no longer supplementing at this time but did discuss he does not have a B12 deficiency based off this result. At this time, patient would like to see how he does with conservative therapy including increasing physical and cognitive activity and follow-up in 6 months to see how he does. Encouraged him to reach out with any new concerns or if he would like a referral to brain health at any time. Patient and family agree and understand. Mali Modi PA-C HPI: Last seen for memory loss on 04/09/24, hippocampus in the 18th percentile. Neuropsych showed MCI. Deferred referral to brain health. No meds. Patient presents for follow-up appointment for memory. Notes that maybe short-term memory has been a bit worse since last appointment, forgetting his keys around the house, forgetting names at work. Still able to function at work.Try to be more physically active and notes that since the weather has improved has been outside more. Plays with his sports cards, baseball, football cars and organizes them as a hobby but is otherwise a very cognitively active. Appetite is stable, sleep is stable. Notes that he is going through some issues with urinary urgency and undergoing pelvic floor therapy for this which interrupt some of his sleep when he has to urinate in the middle of the night. Notes that he did have a recent MRI of the lumbar spine which did show some degeneration but is not a surgical candidate. No falls since last appointment. Sleep concerns? Disrupted due to urination Eating/nutrition concerns? no Med side effects concerns? no Hallucinations? no Social work consult interest? no Wandering/getting lost concern? no Caregiver burnout concern? no Driving safety concern? No issues with this. Review of Systems ACTIVE PROBLEM LIST Intervertebral lumbar disc disorder with myelopathy, lumbar region Htn (Hypertension) Venous Insufficiency Lumbar Degenerative Disc Disease Hyperlipidemia With Target Ldl Less Than 100 Dm (Diabetes Mellitus), Type 2 With Neurological Complications ([facility]) Neoplasm of Uncertain Behavior of Skin Chronic Pain of Both Shoulders Neural Foraminal Stenosis of Cervical Spine Bph Associated With Nocturia Radiculopathy of Lumbar Region Cervical Radiculopathy Cervical Strain PAST MEDICAL HISTORY Diagnosis Date BPH associated with nocturia Controlled type 2 diabetes mellitus without complication, without long-term current use of insulin ([facility]) 06/19/2014 06/19/14 HbA1c 8.1 DVT of lower limb, acute ([facility]) 07/13/2011 Elevated prostate specific antigen (PSA) 12/10/2023 Hyperlipidemia LDL goal < 100 05/16/2013 Lumbar degenerative disc disease 07/09/2012 Pappas's neuroma 05/16/2013 OAB (overactive bladder) 03/24/2024 Sciatica Superficial spreading malignant melanoma of skin ([facility]) 12/03/2014 Medications: Reviewed metFORMIN (GLUCOPHAGE) 500 mg tablet Take 1 tablet by mouth two times a day with meals. cyclobenzaprine (FLEXERIL) 5 mg tablet Take 1 tablet by mouth three times a day. trospium (SANCTURA) 20 mg tablet Take 1 tablet by mouth once daily. tamsulosin (FLOMAX) 0.4 mg Take 2 capsules by mouth daily at bedtime. atorvastatin (LIPITOR) 20 mg tablet Take 1 tablet by mouth once daily. amLODIPine (NORVASC) 10 mg tablet Take 1 tablet by mouth once daily. cholecalciferol, Vitamin D3, (VITAMIN D3) 1,250 mcg (50,000 unit) cap capsule Take 1 capsule by mouth one time a week. take with food Valsartan-hydroCHLOROthiazide (DIOVAN HCT) 80-12.5 mg per tablet Take 1 tablet by mouth once daily. gabapentin (NEURONTIN) 300 mg capsule By mouth: 300mg qam, 600mg qHS donepezil (ARICEPT) 5 mg tablet Take 1 tablet by mouth daily at bedtime. albuterol HFA (VENTOLIN HFA) 90 mcg/actuation inhaler Inhale 2 Puffs as instructed every 4 hours as needed for wheezing/shortness of breath. (Patient not taking: Reported on 05/21/2024) ALLERGIES Allergen Reactions Kidney Beans GI Upset Lisinopril Cough Tyler Seed Other: See Comments Adverse taste in mouth FAMILY HISTORY Problem Relation Age of Onset Heart Father valve Arthritis Mother knees,hips,lumbar spine Diabetes Mother other (electrical injury) Brother other (unknown) Brother PAST SURGICAL HISTORY Procedure Laterality Date EXC SKIN MALIG >4CM REMAINDR BODY 04/16/2017 Squamous cell carcinoma completely excised clean margins MELANOMA OF SKIN EXCISION SYN RPT Left 2015 back MELANOMA OF SKIN EXCISION SYN RPT 04/16/2017 right posterior ear lesion [facility] TONSILLECTOMY PRIMARY/SECONDARY <AGE 12 Tonsillectomy Social Hx: @Alcohol Use: Not on file Tobacco Use: Low Risk (10/08/2024) Patient History Smoking Tobacco Use: Never Smokeless Tobacco Use: Never Passive Exposure: Not on file 10/08/24 1528 BP: 124/74 Pulse: 67 Repeat MoCA deferred due to time Neurologic Exam Cognitive and Language: Alert and answered questions appropriately. Language was fluent. Cranial Nerves: Extraocular movements were full with no diplopia or nystagmus. Facial strength was symmetric. Motor: Moves all 4 extremities Sensory: No evidence of neglect Coordination: Normal finger to nose and heel to fonseca testing bilaterally. Normal gait. Labs: Lab Results Component Value Date WBC 7.48 10/10/2023 HCT 48.8 10/10/2023 MCV 92.6 10/10/2023 PLT 241 10/10/2023 Lab Results Component Value Date HBA1C 7.1 04/07/2024 HBA1C 7.4 10/08/2023 HBA1C 7.2 03/28/2023 HBA1C 6.7 02/09/2021 HBA1C 6.5 06/29/2020 HBA1C 6.1 05/15/2019 Cholesterol, Total Date Value Ref Range Status 04/07/2024 154 <200 mg/dL Final Comment: <200 mg/dL, Desirable 200-239 mg/dL, Borderline high >239 mg/dL, High HDL Cholesterol Date Value Ref Range Status 04/07/2024 41 >39 mg/dL Final Comment: 40-59 mg/dL, Acceptable >59 mg/dL, High: Negative risk factor for coronary heart disease <40 mg/dL, Low: Positive risk factor for coronary heart disease LDL Cholesterol Date Value Ref Range Status 04/07/2024 94 <100 mg/dL Final Comment: <100 mg/dL, Optimal 100-129 mg/dL, Near optimal/above optimal 130-159 mg/dL, Borderline high 160-189 mg/dL, High >189 mg/dL, Very high Secondary prevention optimal LDL Cholesterol levels are recommended to be < 70 mg/dL Triglyceride Date Value Ref Range Status 04/07/2024 94 <150 mg/dL Final Comment: <150 mg/dL, Normal 150-199 mg/dL, Borderline high 200-499 mg/dL, High >499 mg/dL, Very high Lab Results Component Value Date TSH 1.820 10/10/2023 TSH 1.480 11/28/2011 Lab Results Component Value Date B12 [id number] 10/10/2023 Results for orders placed or performed in visit on 05/12/24 UA DIP, URINE (POC) Result Value Ref Range GLUCOSE UA (POCT) 100 (A) Negative mg/dL BILIRUBIN UA (POCT) Negative Negative KETONE UA (POCT) Negative Negative mg/dL SPECIFIC GRAVITY UA (POCT) 1.020 1.005 - 1.030 HEMOGLOBIN/BLOOD UA (POCT) Trace-intact (A) Negative PH UA (POCT) 7.5 4.5 - 8.0 PROTEIN UA (POCT) Negative Negative mg/dL UROBILINOGEN UA (POCT) 0.2 Normal E.U./dL NITRITE UA (POCT) Negative Negative LEUKOCYTES UA (POCT) Negative Negative COLOR UA (POCT) Yellow CLARITY UA (POCT) Slightly Cloudy URINALYSIS, WITH MICROSCOPIC Result Value Ref Range Color Yellow Yellow Clarity Clear Clear Glucose, Urine Trace (A) Negative Bilirubin, Urine Negative Negative Ketones, Urine Negative Negative Specific [place], Ur 1.017 1.005 - 1.030 Hemoglobin/Blood,Ur Negative Negative pH, Urine 7.5 <8.5 Protein, Urine Negative Negative Urobilinogen 1.0 EU/dL 0.2-1.0 EU/dL Nitrites Negative Negative Leuk Esterase Negative Negative WBC, Urine 0-5 /HPF 0-5 /HPF RBC, Urine 0-2 /HPF 0-2 /HPF Bacteria Negative Negative /HPF Squamous Epithelial Cells None Seen /HPF Casts, Hyaline 0 /LPF 0 /LPF Radiology: MRI Head/Brain - Last 2 Impressions MRI BRAIN WO IVCON Exam End: 12/26/2023 3:32 PM (Final result) Impression: IMPRESSION: No acute intracranial process. Chronic changes and quantitative volumes as described. ... This note was dictated using [employer] speech recognition software and may contain some errors that were a result of the program not accurately transcribing what was dictated, despite efforts to make corrections. Note that unless urgent, test and MRI results will be discussed at next follow-up visit. PROMIS (Patient-Reported Outcomes Measurement Information System) is a set of person-centered measures that evaluates and monitors physical, social, and emotional health. It can be used with the general population and with individuals living with chronic conditions. PROMIS 10: PHYSICAL AND MENTAL HEALTH: 10/10/2023 PHQ-9 PHQ-2 Score 0 Medical Decision Making: Medical Decision Making Level: 1 - N/A I spent a total of 45 minutes on the date of the service which included preparing to see the patient, [id number] patient care, completing clinical documentation, obtaining and/or reviewing separately obtained history, performing a medically appropriate examination, counseling and educating the patient/family/caregiver, and ordering medications, tests, or procedures. The patient consented to the use of [employer] software for draft documentation of the visit consistent with [facility] s Notice of Privacy Practices. documented in this encounter [facility] 10-07-2024 Note HNO ID: [id number] Author: TIARRA LEON PT Service: ? Author Type: Physical Therapist Type: Progress Notes Filed: 10/07/2024 11:29 Note Text: Episode Visit Count: 4 Therapist That Will Accept/Oversee The Plan Of Care: Tiarra Leon PT, DPT Start of Care Date: 08/05/24 Onset Date: 08/05/23 Plan of Care Certification Date: 08/05/24 Next Certification Due Date: 10/28/24 Patient Identified by Name and Date of : Yes REHABILITATION AND SPORTS THERAPY PHYSICAL THERAPY TREATMENT NOTE ASSESSMENT: Charline Sanchez tolerated the session with no issues. He demonstrated improvements in coordination of pelvic floor muscles. Verbalized understanding of education provided. The patient will continue to benefit from ongoing skilled physical therapy to progress toward set goals. PLAN FOR NEXT VISIT: HOLD x60 days pending independence with HEP and recommendations SUBJECTIVE: Patient reports doing okay. He got two water bottles, about 20 oz for the smaller one and a larger one when going to be gone a lot. Stool consistency is improving with the water. Trying to drink more water and eat more fiber. Still aware of where the restrooms are. Kegels help with urgency short-term. Doing HEP 3x/day. Waking at least 1x/night, sometimes twice. 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 Reports he has been having issues with memory, seeing someone for this in neurology. Was told to take vitamin D3 and B12 for this and exercise his brain. Pain: Pain Pain Level: (pain not a complaint of this visit) OBJECTIVE MEASURES WITH LEVEL OF FUNCTION: Pelvic Floor Urgency: Sometimes Frequency of Urgency Episodes: 3-4 times a week depends on activity Frequency of Leaks Secondary to Urge: at least 1 a week Nocturia (times per night) : 1-2 Daytime Frequency (hours): 2-6 Water : at least 40 oz Bowel Movement Consistency ([place]) : 3: Like a sausage or snake but with cracks on its surface, 4: Like a sausage or snake, smooth and soft Pelvic Floor Muscle Assessment Consent for pelvic assessment/testing and treatment: Patient was educated regarding pelvic floor physical therapy assessment/treatment which may include pelvic floor and girdle muscle assessment externally or internally (vaginal or rectal approach)., Patient verbalized consent for the above treatment approaches today. Patient understands they have control of the treatment and an opportunity to stop treatment at any time. (external only) Pelvic Floor Muscle Assessment: Muscle Dynamics, PERFECT Power: (palpable ascent) Endurance: 10 Reps: 10 Fast Reps: 10 Recruitment of pelvic floor muscles: Coordinated Extra-pelvic muscle activity: Holds breath Breathing Pattern : min cues to avoid accessory mm Diaphragmatic Breathing : Fair TREATMENT: Neuromuscular Re-Education: 1: Long holds 10 sec x10 2: Quick flicks with emphasis on full ROM 3: Diaphragmatic breathing 4: Educated patient on long-term maintenance frequency of HEP Skilled Intervention: Skilled judgment used to assess appropriate program for balance and coordination activity. Correct performance of home program was facilitated with verbal and tactile cueing. Patient education as noted. Self-Chcf Management: 1: Educated patient that ideally he would not be very active in the evenings to improve sleep quality and limit evening fluid consumption. If he has to be more active in the evening due to work or other activity, this will likely disrupt sleep. 2: Review of recommendations from evaluation, see subjective. 3: Educated patient on research regarding fluoride and dental hygiene with dementia/memory concerns 4: Educated patient on strategies to improve memory and potential benefit of OT to develop strategies. Discussed importance of memory for compliance with HEP and recommendations 5: Educated patient on the influence of water soluble vs fat soluble vitamins Skilled Intervention: Skilled judgment in the selection of proper modification for activity of daily living/home management based on clinical presentation, deficits, and needs. Educated the patient regarding recommendations and provided written instruction to facilitate compliance. Reviewed patient specific diagnosis in relation to activities of daily living/home management. Billing Neuromuscular Re-Education Treatment Minutes: 16 Self-Care/Home Management Treatment Minutes: 41 Skilled Treatment Time Minutes (timed and untimed codes): 57 Total Session Time (minutes): 57 Session Start Time : 1032 Session Stop Time : 1129 Tiarra Leon PT [facility] 10-07-2024 History of Present illness Narrative Episode Visit Count: 4 Therapist That Will Accept/Oversee The Plan Of Care: Tiarra Leon PT, DPT Start of Care Date: 08/05/24 Onset Date: 08/05/23 Plan of Care Certification Date: 08/05/24 Next Certification Due Date: 10/28/24 Patient Identified by Name and Date of : Yes REHABILITATION AND SPORTS THERAPY PHYSICAL THERAPY TREATMENT NOTE ASSESSMENT: Charline Sanchez tolerated the session with no issues. He demonstrated improvements in coordination of pelvic floor muscles. Verbalized understanding of education provided. The patient will continue to benefit from ongoing skilled physical therapy to progress toward set goals. PLAN FOR NEXT VISIT: HOLD x60 days pending independence with HEP and recommendations SUBJECTIVE: Patient reports doing okay. He got two water bottles, about 20 oz for the smaller one and a larger one when going to be gone a lot. Stool consistency is improving with the water. Trying to drink more water and eat more fiber. Still aware of where the restrooms are. Kegels help with urgency short-term. Doing HEP 3x/day. Waking at least 1x/night, sometimes twice. 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 Higher is Better Phys Func - Score 42 (mild dysfunction) 41 (mild dysfunction) 41 (mild dysfunction) Phys Func - Percentile 21 18 18 Self-Eff Symptom - Score 48 (Average) 48 (Average) Self-Eff Symptom - Percentile 42 42 T-scores: mean of general population = 50. 5 points is clinically meaningfully difference Percentiles provide an indication of how the patient's score ranks in relation to the general population. Higher percentile rankings indicate better function/quality of life. 50th percentile is the average of the general population and indicates half of respondents had a worse score. OBJECTIVE MEASURES WITH LEVEL OF FUNCTION: Lumbar Spine AROM Lumbar Flexion: Normal (Flat back at 90, hamstring pull.) Lumbar Extension: Normal Lumbar R Side-Bend: Normal Lumbar L Side-Bend: Normal Lumbar R Rotation: Normal Lumbar L Rotation: Normal Lumbar Spine AROM Comments: Improved mateo to complete, still slower than normal however more motion than eval. No pain during AROM testing. Cervical Spine ROM Cervical Flexion AROM (degrees) : 45 Degrees Cervical Extension AROM (degrees) : 40 Degrees Cervical Side-Bend Right AROM (degrees): 40 Degrees Cervical Side-Bend Left AROM (degrees) : 40 Degrees Cervical Rotation Right AROM (degrees) : 55 Degrees Cervical Rotation Left AROM (degrees) : 55 Degrees LE Flexibility R Hamstring Flexibility: Fair L Hamstring Flexibility: Fair UE and Cervical Strength R UE Strength: Grossly 5/5 L UE Strength: Grossly 5/5 LE Strength Trunk Strength: 4/5 Lower Abdominals. R LE Strength: Grossly 5/5 L LE Strength: Grossly 5/5 Special Tests - Cervical Spurling: Right Negative, Left Negative Special Tests - Hip and Spine SLR Test: Right Negative, Left Negative Gait Gait Observation: No remarkable findings TREATMENT: Therapeutic Exercise: 1: Reassessment & Objectives collected. Discussed patients progress and goals assessed. Discussed POC. Patient wanting to try pelvic rehab for urge issues. 2: *Standing [id number]-[id number]: x10, cw/ccw. GTB 3: *Shoulder Ext for posture in standing: x10, GTB. Skilled Intervention: Patient was educated in proper exercise technique and purpose for exercises. Skilled judgment was used in selection of appropriate interventions. Self-Chcf Management: 1: *Extensive discussion on pelvic health therapy and rationale for pelvic therapy for treatment of urinary &/or fecal incontinence, urgency/frequency of urination, as well as low back, pelvic & core rehab programs. Discussed locations and how to schedule. Handout provided. Therapist reached out to patients PCP for referral order. Skilled Intervention: Skilled judgment in the selection of proper modification for activity of daily living/home management based on clinical presentation, deficits, and needs. Education as noted above. Billing Therapeutic Exercise Treatment Minutes: 23 Self-Care/Home Management Treatment Minutes: 15 Skilled Treatment Time Minutes (timed and untimed codes): 38 Total Session Time (minutes): 38 Session Start Time : 1415 Session Stop Time : 1453 Mario Glez PT documented in this encounter [facility] 06-30-2024 Note HNO ID: [id number] Author: MARIO GLEZ PT Service: ? Author Type: Physical Therapist Type: Progress Notes Filed: 06/30/2024 14:58 Note Text: Episode Visit Count: 10 Therapist That Will Accept/Oversee The Plan Of Care: Mario Glez PT. Start of Care Date: 04/29/24 Onset Date: 05/19/24 (October 2023 LBP.) Plan of Care Certification Date: 05/27/24 Next Certification Due Date: 07/01/24 Patient Identified by Name and Date of : Yes REHABILITATION AND SPORTS THERAPY PHYSICAL THERAPY DISCONTINUANCE OF CARE PLAN OF CARE UPDATE: Assessment: Charline Sanchez is discontinued from Physical Therapy services due to goal achievement., Patient/Clinician mutual decision to discontinue current plan of care., and refer to pelvic health PT for incontinence issues . Patient was seen for 10 total visits from Start of Care Date: 04/29/24 to 06/30/2024 and treatment included: Therapeutic exercise, Manual therapy, and Self-nursing home management. LOW BACK: Goals for Episode of Care: established 04/29/24 Patient reported outcome of physical function will increase T-score by a minimum 5 points. (MET) Dickinson in home exercise program. (Goal Met) Patient will decrease pain rating by 2 points to meet minimal clinical important difference for numeric pain rating scale. (Goal Met) Restore pain-free lumbar ROM to WFL to allow for improved functional Mobility (Goal Met) Stand / Walk to return to regular walking program and ADLs without pain/symptoms. (Less sxs with stand/walk however did not start walking program) Patient will increase strength of trunk to 4/5 to allow for return to prior functional status and perform ADLs. (Goal Met) NECK: Added 05/27/24 Patient reported outcome of physical function will increase T-score by a minimum 5 points. (Goal Met) Independent in a Home Exercise Program. (Goal Met) Patient will decrease pain rating by 2 points to meet minimal clinical important difference for numeric pain rating scale. (Goal Met) Restore pain free cervical ROM to WFL to allow for improved ADL/IADLs. Drive with no aggravation of pain/symptoms. (Goal Met) Sleep throughout the night without pain/symptoms. (Goal Met) Improve NDI Score by 6 points (12%) to indicate a Minimal Clinical Important Difference. (19 on eval.) (Goal Met, scored a 2 today) SUBJECTIVE: Patient reports his neck has greatly improved overall. Low back is okay, not too much benefit with therapy but he hasn't felt to bad with the low back lately. Wanting to go in the route of pelvic health therapy for his incontinence issues. Pain: Pain Pain Level: 0 Pain Location: Neck - Right Pain Level 2: 0 Pain Location 2: Low Back/Lumbar Spine- Midline PROMIS Scales 05/27/2024 04/29/2024 09/02/2019 Higher is Better Phys Func - Score 42 (mild dysfunction) 41 (mild dysfunction) 41 (mild dysfunction) Phys Func - Percentile 21 18 18 Self-Eff Symptom - Score 48 (Average) 48 (Average) Self-Eff Symptom - Percentile 42 42 T-scores: mean of general population = 50. 5 points is clinically meaningfully difference Percentiles provide an indication of how the patient's score ranks in relation to the general population. Higher percentile rankings indicate better function/quality of life. 50th percentile is the average of the general population and indicates half of respondents had a worse score. OBJECTIVE MEASURES WITH LEVEL OF FUNCTION: Lumbar Spine AROM Lumbar Flexion: Normal (Flat back at 90, hamstring pull.) Lumbar Extension: Normal Lumbar R Side-Bend: Normal Lumbar L Side-Bend: Normal Lumbar R Rotation: Normal Lumbar L Rotation: Normal Lumbar Spine AROM Comments: Improved mateo to complete, still slower than normal however more motion than eval. No pain during AROM testing. Cervical Spine ROM Cervical Flexion AROM (degrees) : 45 Degrees Cervical Extension AROM (degrees) : 40 Degrees Cervical Side-Bend Right AROM (degrees): 40 Degrees Cervical Side-Bend Left AROM (degrees) : 40 Degrees Cervical Rotation Right AROM (degrees) : 55 Degrees Cervical Rotation Left AROM (degrees) : 55 Degrees LE Flexibility R Hamstring Flexibility: Fair L Hamstring Flexibility: Fair UE and Cervical Strength R UE Strength: Grossly 5/5 L UE Strength: Grossly 5/5 LE Strength Trunk Strength: 4/5 Lower Abdominals. R LE Strength: Grossly 5/5 L LE Strength: Grossly 5/5 Special Tests - Cervical Spurling: Right Negative, Left Negative Special Tests - Hip and Spine SLR Test: Right Negative, Left Negative Gait Gait Observation: No remarkable findings TREATMENT: Therapeutic Exercise: 1: Reassessment AND Objectives collected. Discussed patients progress and goals assessed. Discussed POC. Patient wanting to try pelvic rehab for urge issues. 2: *Standing [id number]-kkm-fhc: x10, cw/ccw. GTB 3: *Shoulder Ext for posture in standing: x10, GTB. Skilled Intervention: Patient was educated in proper exercise tech (more content not included)... [facility] 06-26-2024 Telephone encounter Note Pt notified. Caryn Canales MA [facility] 06-26-2024 Miscellaneous Notes Pt notified. Caryn Canales MA Please notify patient that his MRI showed degenerative changes in his low back, but nothing that looked like it needed immediate attention I would recommend continuing with the PT; if this does not help then we can refer to Spine or Pain for further recommendations. Viktor Ferrera MD documented in this encounter [facility] 06-26-2024 Telephone encounter Note Please notify patient that his MRI showed degenerative changes in his low back, but nothing that looked like it needed immediate attention I would recommend continuing with the PT; if this does not help then we can refer to Spine or Pain for further recommendations. Viktor Ferrera MD [facility] 06-23-2024 History of Present illness Narrative Program_ID:[id number] Access Code: [email or web address] URL: [email or web address] Date: 06-23-2024 Prepared By: Mario Glze Program Notes Exercises - Hooklying Single Knee to Chest Stretch - 2 x daily - 7 x weekly - 3 sets - reps - Supine Double Knee to Chest - 3 x daily - 7 x weekly - 3 sets - reps - Supine Lower Trunk Rotation - 2 x daily - 7 x weekly - 2 sets - 10 reps - Supine Transversus Abdominis Bracing - Hands on Stomach - 2 x daily - 7 x weekly - 2-3 sets - 10 reps - Supine Posterior Pelvic Tilt - 2 x daily - 7 x weekly - 2 sets - 10 reps - Supine Bridge - 2 x daily - 7 x weekly - 2 sets - 8-12 reps - Standing Anti-Rotation Press with Anchored Resistance - 2 x daily - 7 x weekly - 2 sets - 10-12 reps Episode Visit Count: 4 Therapist That Will Accept/Oversee The Plan Of Care: Mario Glez PT. Start of Care Date: 05/27/24 Onset Date: 05/19/24 Plan of Care Certification Date: 05/27/24 Next Certification Due Date: 07/01/24 Patient Identified by Name and Date of : Yes REHABILITATION AND SPORTS THERAPY PHYSICAL THERAPY TREATMENT NOTE ASSESSMENT: Charline Sanchez tolerated the session with no issues. He demonstrated no issues with added low back NS strength exercises. The patient will continue to benefit from ongoing skilled physical therapy to progress toward set goals. PLAN FOR NEXT VISIT: NC SUBJECTIVE: Reports the neck is doing good, has not found anything new with it. Pain: Pain Pain Level: 0 Pain Location: Neck - Right OBJECTIVE MEASURES WITH LEVEL OF FUNCTION: L Hamstring cramping with bridges. Good form with TrA bracing and PPT. TREATMENT: Therapeutic Exercise: 1: *HL TrA Bracinx10, 5-sec holds. 2: *HL PPT: x10. 3: *HL Bridge: 1x8. 4: *Standing Pallof Press: x10 each side, GTB. Skilled Intervention: Patient was educated in proper exercise technique and purpose for exercises. Reviewed and educated patient on additions/changes for home exercise program as above (*). Skilled judgment was used in selection of appropriate interventions. Provided written instruction for home exercise program to facilitate proper performance and compliance. Manual Therapy: 1: STM to R UT & Levator: Push to tolerance. 3: TPR to RUT: x10. 4: ART to R UT in SL: x10. Skilled Intervention: Manual skills to improve joint mobility, ROM, and decrease pain. Utilized anatomy knowledge of the therapist, and assessment of patient's response to intervention. Self-Chcf Management: 1: *Extensive discussion & education on reviewing MRI imaging completed on the low back. Used a spinal model to discuss anatomy. Discussed therapy implications. 2: *Discussed Pelvic Floor Physical Therapy for Urge Incontinence. Skilled Intervention: Skilled judgment in the selection of proper modification for activity of daily living/home management based on clinical presentation, deficits, and needs. Billing Therapeutic Exercise Treatment Minutes: 15 Manual TherapyTreatment Minutes: 10 Self-Care/Home Management Treatment Minutes: 15 Skilled Treatment Time Minutes (timed and untimed codes): 40 Total Session Time (minutes): 40 Session Start Time : 1415 Session Stop Time : 1455 Mario Glez PT documented in this encounter [facility] 06-23-2024 Note HNO ID: [id number] Author: MARIO GLEZ PT Service: ? Author Type: Physical Therapist Type: Progress Notes Filed: 06/23/2024 15:00 Note Text: Episode Visit Count: 4 Therapist That Will Accept/Oversee The Plan Of Care: Mario Glez PT. Start of Care Date: 05/27/24 Onset Date: 05/19/24 Plan of Care Certification Date: 05/27/24 Next Certification Due Date: 07/01/24 Patient Identified by Name and Date of : Yes REHABILITATION AND SPORTS THERAPY PHYSICAL THERAPY TREATMENT NOTE ASSESSMENT: Charline Sanchez tolerated the session with no issues. He demonstrated no issues with added low back NS strength exercises. The patient will continue to benefit from ongoing skilled physical therapy to progress toward set goals. PLAN FOR NEXT VISIT: NC SUBJECTIVE: Reports the neck is doing good, has not found anything new with it. Pain: Pain Pain Level: 0 Pain Location: Neck - Right OBJECTIVE MEASURES WITH LEVEL OF FUNCTION: L Hamstring cramping with bridges. Good form with TrA bracing and PPT. TREATMENT: Therapeutic Exercise: 1: *HL TrA Bracinx10, 5-sec holds. 2: *HL PPT: x10. 3: *HL Bridge: 1x8. 4: *Standing Pallof Press: x10 each side, GTB. Skilled Intervention: Patient was educated in proper exercise technique and purpose for exercises. Reviewed and educated patient on additions/changes for home exercise program as above (*). Skilled judgment was used in selection of appropriate interventions. Provided written instruction for home exercise program to facilitate proper performance and compliance. Manual Therapy: 1: STM to R UT AND Levator: Push to tolerance. 3: TPR to RUT: x10. 4: ART to R UT in SL: x10. Skilled Intervention: Manual skills to improve joint mobility, ROM, and decrease pain. Utilized anatomy knowledge of the therapist, and assessment of patient's response to intervention. Self-Chcf Management: 1: *Extensive discussion AND education on reviewing MRI imaging completed on the low back. Used a spinal model to discuss anatomy. Discussed therapy implications. 2: *Discussed Pelvic Floor Physical Therapy for Urge Incontinence. Skilled Intervention: Skilled judgment in the selection of proper modification for activity of daily living/home management based on clinical presentation, deficits, and needs. Billing Therapeutic Exercise Treatment Minutes: 15 Manual TherapyTreatment Minutes: 10 Self-Care/Home Management Treatment Minutes: 15 Skilled Treatment Time Minutes (timed and untimed codes): 40 Total Session Time (minutes): 40 Session Start Time : 1415 Session Stop Time : 1455 Mario Glez PT [facility] 06-18-2024 History of Present illness Narrative Radiology Service Progress Note PATIENT NAME: Charline Sanchez DATE OF SERVICE: June 18, 2024 TIME: 11:55 AM PATIENT IDENTITY VERIFICATION COMPLETED USING TWO (2) IDENTIFIERS: Name and Date of confirmed by patient verbally. FALL SCREENING: Has the patient had 2 falls in the last year or 1 fall with injury or currently using an Ambulatory Assistive Device (Walker, Cane, Wheelchair, Crutches, etc.)? No PATIENT GENDER DATA: Male PATIENT RELEVANT IMPLANT DATA REVIEWED: Yes PATIENT PRESENTS WITH AN IMPLANTABLE OR ATTACHED DEPUTY TREASURER: No RADIOLOGY DEPARTMENT: MR; Exam(s) Completed: Spine: Lumbar spine PERIPHERAL IV DATA: Not applicable SIGNED BY: RT Inge(R) June 18, 2024 11:55 AM documented in this encounter [facility] 06-18-2024 Note HNO ID: [id number] Author: YOLI QUIÑONES RT(R) Service: ? Author Type: Technologist Type: Progress Notes Filed: 06/18/2024 11:57 Note Text: Radiology Service Progress Note PATIENT NAME: Charline Sanchez DATE OF SERVICE: June 18, 2024 TIME: 11:55 AM PATIENT IDENTITY VERIFICATION COMPLETED USING TWO (2) IDENTIFIERS: Name and Date of confirmed by patient verbally. FALL SCREENING: Has the patient had 2 falls in the last year or 1 fall with injury or currently using an Ambulatory Assistive Device (Walker, Cane, Wheelchair, Crutches, etc.)? No PATIENT GENDER DATA: Male PATIENT RELEVANT IMPLANT DATA REVIEWED: Yes PATIENT PRESENTS WITH AN IMPLANTABLE OR ATTACHED DEPUTY TREASURER: No RADIOLOGY DEPARTMENT: MR; Exam(s) Completed: Spine: Lumbar spine PERIPHERAL IV DATA: Not applicable SIGNED BY: RT Inge(R) June 18, 2024 11:55 AM [facility] 06-18-2024 Note HNO ID: [id number] Author: MARIO GLEZ PT Service: ? Author Type: Physical Therapist Type: Progress Notes Filed: 06/18/2024 08:30 Note Text: Episode Visit Count: 4 Therapist That Will Accept/Oversee The Plan Of Care: Mario Glez PT. Start of Care Date: 05/27/24 Onset Date: 05/19/24 Plan of Care Certification Date: 05/27/24 Next Certification Due Date: 07/01/24 Patient Identified by Name and Date of : Yes REHABILITATION AND SPORTS THERAPY PHYSICAL THERAPY TREATMENT NOTE ASSESSMENT: Charline Sanchez tolerated the session with expected muscle soreness. He demonstrated improvements in R UT AND Levator Tissue Tension. The patient will continue to benefit from ongoing skilled physical therapy to progress toward set goals. Current Frequency: 1x/week Duration: 2 weeks Total Number of Visits Planned: 2 PLAN FOR NEXT VISIT: Review Low Back MRI; Manual PRN Neck; Progress Scap Strength as tolerated. SUBJECTIVE: MRI for LB today. Busy week last week, did not do exercises because states he did not have time to. Neck has improved greatly. Pain: Pain Pain Level: 1 Pain Location: Neck Description: Dull OBJECTIVE MEASURES WITH LEVEL OF FUNCTION: TTP R UT AND Levator. TREATMENT: Therapeutic Exercise: 1: Rows: 3x8, GTB. 2: Shoulder Ext: 3x8, GTB. 3: Standing A's, 3x8, GTB. Skilled Intervention: Patient was educated in proper exercise technique and purpose for exercises. Skilled judgment was used in selection of appropriate interventions. Manual Therapy: 1: STM AND CFM to R UT AND Levator: Push to tolerance. 3: TPR to RUT AND Levator. 4: ART to R Levator in SL: x10. Skilled Intervention: Manual skills to improve joint mobility, ROM, and decrease pain. Utilized anatomy knowledge of the therapist, and assessment of patient's response to intervention. Billing Therapeutic Exercise Treatment Minutes: 15 Manual TherapyTreatment Minutes: 23 Skilled Treatment Time Minutes (timed and untimed codes): 38 Total Session Time (minutes): 38 Session Start Time : 075 Session Stop Time : 828 Decreased visit time due to patient arriving late to appointment. Mario Glez PT [facility] 06-18-2024 History of Present illness Narrative Episode Visit Count: 4 Therapist That Will Accept/Oversee The Plan Of Care: Mario Glez PT. Start of Care Date: 05/27/24 Onset Date: 05/19/24 Plan of Care Certification Date: 05/27/24 Next Certification Due Date: 07/01/24 Patient Identified by Name and Date of : Yes REHABILITATION AND SPORTS THERAPY PHYSICAL THERAPY TREATMENT NOTE ASSESSMENT: Charline Sanchez tolerated the session with expected muscle soreness. He demonstrated improvements in R UT & Levator Tissue Tension. The patient will continue to benefit from ongoing skilled physical therapy to progress toward set goals. Current Frequency: 1x/week Duration: 2 weeks Total Number of Visits Planned: 2 PLAN FOR NEXT VISIT: Review Low Back MRI; Manual PRN Neck; Progress Scap Strength as tolerated. SUBJECTIVE: MRI for LB today. Busy week last week, did not do exercises because states he did not have time to. Neck has improved greatly. Pain: Pain Pain Level: 1 Pain Location: Neck Description: Dull OBJECTIVE MEASURES WITH LEVEL OF FUNCTION: TTP R UT & Levator. TREATMENT: Therapeutic Exercise: 1: Rows: 3x8, GTB. 2: Shoulder Ext: 3x8, GTB. 3: Standing A's, 3x8, GTB. Skilled Intervention: Patient was educated in proper exercise technique and purpose for exercises. Skilled judgment was used in selection of appropriate interventions. Manual Therapy: 1: STM & CFM to R UT & Levator: Push to tolerance. 3: TPR to RUT & Levator. 4: ART to R Levator in SL: x10. Skilled Intervention: Manual skills to improve joint mobility, ROM, and decrease pain. Utilized anatomy knowledge of the therapist, and assessment of patient's response to intervention. Billing Therapeutic Exercise Treatment Minutes: 15 Manual TherapyTreatment Minutes: 23 Skilled Treatment Time Minutes (timed and untimed codes): 38 Total Session Time (minutes): 38 Session Start Time : 0751 Session Stop Time : 08 Decreased visit time due to patient arriving late to appointment. Mario Glez PT documented in this encounter [facility] 06-12-2024 Telephone encounter Note Pt called and notified, verbalized understanding. Leonarda Morris MA [facility] 06-12-2024 Miscellaneous Notes Pt called and notified, verbalized understanding. Leonarda Morris MA OK for one Ativan as ordered; to take 30-60 minutes before MRI Viktor Ferrera MD Patient is requesting a mild sedative for his MRI coming up on June 18. Due to some claustrophobia and anxiety he has with MRI's if okay with filling the medication, he would like it sent to [facility] in [place]. Please review and advise patient. Latasha Lara June 12, 2024 2:00 PM documented in this encounter [facility] 06-12-2024 Telephone encounter Note OK for one Ativan as ordered; to take 30-60 minutes before MRI Viktor Ferrera MD [facility] 06-12-2024 Telephone encounter Note Patient is requesting a mild sedative for his MRI coming up on June 18. Due to some claustrophobia and anxiety he has with MRI's if okay with filling the medication, he would like it sent to [facility] in [place]. Please review and advise patient. Latasha Lara June 12, 2024 2:00 PM [facility] 06-12-2024 Note HNO ID: [id number] Author: ROSE HANSEN LPN Service: ? Author Type: LICENSED NURSE Type: Progress Notes Filed: 06/12/2024 14:10 Note Text: Patient notified and transferred to schedule appointment. [facility] 06-12-2024 History of Present illness Narrative Patient notified and transferred to schedule appointment. Message left with female resident to have pt call back. Caryn Canales MA Messages have been received from PT and Urology suggesting recheck MRI lumbar spine due to ongoing symptoms, including bowel and bladder control issues. MRI ordered Viktor Ferrera MD documented in this encounter [facility] 06-12-2024 Note HNO ID: [id number] Author: CARYN CANALES MA Service: ? Author Type: Database Marketing Specialist Type: Progress Notes Filed: 06/12/2024 14:10 Note Text: Message left with female resident to have pt call back. Caryn Canales MA [facility] 06-11-2024 History of Present illness Narrative Program_ID:[id number] Access Code: [email or web address] URL: [email or web address] Date: 06-11-2024 Prepared By: Mario Glez Program Notes Exercises - Gentle Levator Scapulae Stretch - 2 x daily - 7 x weekly - 2-3 sets - reps - Upper Trapezius Stretch - 2 x daily - 7 x weekly - 2-3 sets - reps - Standing Upper Trapezius Mobilization with Small Ball - 1-2 x daily - 7 x weekly - sets - reps - Shoulder External Rotation and Scapular Retraction with Resistance - 2 x daily - 7 x weekly - 2-3 sets - 10 reps - Supine Cervical Retraction with Towel - 2 x daily - 7 x weekly - 2-3 sets - 10 reps Episode Visit Count: 3 Therapist That Will Accept/Oversee The Plan Of Care: Mario Glez PT. Start of Care Date: 05/27/24 Onset Date: 05/19/24 Plan of Care Certification Date: 05/27/24 Next Certification Due Date: 07/01/24 Patient Identified by Name and Date of : Yes REHABILITATION AND SPORTS THERAPY PHYSICAL THERAPY TREATMENT NOTE ASSESSMENT: Charline Sanchez tolerated the session with decreased symptoms. He demonstrated great form with added chin tucks today. The patient will continue to benefit from ongoing skilled physical therapy to progress toward set goals. PLAN FOR NEXT VISIT: Manual PRN Neck; Progress Scap Strength as tolerated. SUBJECTIVE: States R Neck is seeming to improve. Feels like he can move it better when driving. Points to isolated sxs at the levator/R UT area. Feels a pull on stretches still. States the R Neck does not inhibit him in doing anything. Pain: Pain Pain Level: 2 Pain Location: Neck Description: Dull Post Treatment Pain Post Treatment Pain Level: Better Post Treatment Pain Location: Neck - Right OBJECTIVE MEASURES WITH LEVEL OF FUNCTION: TTP R UT & Levator Scap. TREATMENT: Therapeutic Exercise: 1: *HL Chin Tucks: 2x10, 3-sec holds. 2: *Seated ER Pull Aparts: 2x10, GTB. 1-2sec hold. 3: R Levator Scap Stretch: 3x30. Skilled Intervention: Patient was educated in proper exercise technique and purpose for exercises. Reviewed and educated patient on additions/changes for home exercise program as above (*). Skilled judgment was used in selection of appropriate interventions. Provided written instruction for home exercise program to facilitate proper performance and compliance. Manual Therapy: 1: STM & CFM to R UT & Levator: Push to tolerance. 2: R UT Stripping to patient tolerance. 3: TPR to RUT & Levator. 4: ART to R Levator in SL: x10. Skilled Intervention: Manual skills to improve joint mobility, ROM, and decrease pain. Utilized anatomy knowledge of the therapist, and assessment of patient's response to intervention. Billing Therapeutic Exercise Treatment Minutes: 14 Manual TherapyTreatment Minutes: 24 Skilled Treatment Time Minutes (timed and untimed codes): 38 Total Session Time (minutes): 38 Session Start Time : 747 Session Stop Time : 825 Mario Glez PT, DPT. documented in this encounter [facility] 06-11-2024 Note HNO ID: [id number] Author: MARIO GLEZ, PT Service: ? Author Type: Physical Therapist Type: Progress Notes Filed: 06/11/2024 08:26 Note Text: Episode Visit Count: 3 Therapist That Will Accept/Oversee The Plan Of Care: Mario Glez PT. Start of Care Date: 05/27/24 Onset Date: 05/19/24 Plan of Care Certification Date: 05/27/24 Next Certification Due Date: 07/01/24 Patient Identified by Name and Date of : Yes REHABILITATION AND SPORTS THERAPY PHYSICAL THERAPY TREATMENT NOTE ASSESSMENT: Charline Sanchez tolerated the session with decreased symptoms. He demonstrated great form with added chin tucks today. The patient will continue to benefit from ongoing skilled physical therapy to progress toward set goals. PLAN FOR NEXT VISIT: Manual PRN Neck; Progress Scap Strength as tolerated. SUBJECTIVE: States R Neck is seeming to improve. Feels like he can move it better when driving. Points to isolated sxs at the levator/R UT area. Feels a pull on stretches still. States the R Neck does not inhibit him in doing anything. Pain: Pain Pain Level: 2 Pain Location: Neck Description: Dull Post Treatment Pain Post Treatment Pain Level: Better Post Treatment Pain Location: Neck - Right OBJECTIVE MEASURES WITH LEVEL OF FUNCTION: TTP R UT AND Levator Scap. TREATMENT: Therapeutic Exercise: 1: *HL Chin Tucks: 2x10, 3-sec holds. 2: *Seated ER Pull Aparts: 2x10, GTB. 1-2sec hold. 3: R Levator Scap Stretch: 3x30. Skilled Intervention: Patient was educated in proper exercise technique and purpose for exercises. Reviewed and educated patient on additions/changes for home exercise program as above (*). Skilled judgment was used in selection of appropriate interventions. Provided written instruction for home exercise program to facilitate proper performance and compliance. Manual Therapy: 1: STM AND CFM to R UT AND Levator: Push to tolerance. 2: R UT Stripping to patient tolerance. 3: TPR to RUT AND Levator. 4: ART to R Levator in SL: x10. Skilled Intervention: Manual skills to improve joint mobility, ROM, and decrease pain. Utilized anatomy knowledge of the therapist, and assessment of patient's response to intervention. Billing Therapeutic Exercise Treatment Minutes: 14 Manual TherapyTreatment Minutes: 24 Skilled Treatment Time Minutes (timed and untimed codes): 38 Total Session Time (minutes): 38 Session Start Time : 747 Session Stop Time : 825 Mario Glez PT, DPT. [facility] 06-10-2024 Note HNO ID: [id number] Author: VIKTOR FERRERA MD Service: ? Author Type: Physician Type: Progress Notes Filed: 06/12/2024 14:10 Note Text: Messages have been received from PT and Urology suggesting recheck MRI lumbar spine due to ongoing symptoms, including bowel and bladder control issues. MRI ordered Viktor Ferrera MD [facility] 06-04-2024 History of Present illness Narrative Program_ID:[id number] Access Code: [email or web address] URL: [email or web address] Date: 06-04-2024 Prepared By: Mario Glez Program Notes Exercises - Seated Scapular Retraction - 2 x daily - 7 x weekly - 2 sets - 10 reps - Gentle Levator Scapulae Stretch - 2 x daily - 7 x weekly - 2-3 sets - reps - Upper Trapezius Stretch - 2 x daily - 7 x weekly - 2-3 sets - reps - Standing Upper Trapezius Mobilization with Small Ball - 1-2 x daily - 7 x weekly - sets - reps Episode Visit Count: 4 Therapist That Will Accept/Oversee The Plan Of Care: Mario Glez PT. Start of Care Date: 05/27/24 Onset Date: 05/19/24 Plan of Care Certification Date: 05/27/24 Next Certification Due Date: 07/01/24 REHABILITATION AND SPORTS THERAPY PHYSICAL THERAPY TREATMENT NOTE ASSESSMENT: Charline Sanchez tolerated the session with decreased symptoms. He demonstrated improvements in flexibility of the neck following session. The patient will continue to benefit from ongoing skilled physical therapy to progress toward set goals. PLAN FOR NEXT VISIT: Progress ther-ex for low back and neck as tolerated; manual R Neck. SUBJECTIVE: Reports trying to go back into bed with the neck the past week, didn't do the best. Was able to tolerate the bed last night. States the R Neck is there, would call it more of an aggravation > pain. R Neck flare has gone down since it started. Back has not been as bad because he has not done to much strenous things due to neck flare up. Pain: Pain Pain Level: 2 Pain Location: Neck Description: (Aggravation.) Frequency: Continuous Additional Pain Information : Location 2 Pain Level 2: 0 Pain Location 2: Low Back/Lumbar Spine- Midline Post Treatment Pain Post Treatment Pain Location: Neck - Right Post Treatment Pain Description: Sore OBJECTIVE MEASURES WITH LEVEL OF FUNCTION: TTP RUT. Tissue restrictions through RUT (better than previous) TREATMENT: Therapeutic Exercise: 1: *Discussed the purpose of STM using lacrosse ball vs wall for irritated soft tissue. Explained how to perform STM properly and frequency. Handout sent home for HEP. 2: R Levator Scap Stretch: 1x30. 3: R Upper Trap Stretch (R Arm Behind Back, L SB): x30. 4: Scap Squeezes: 2x10. Skilled Intervention: Patient was educated in proper exercise technique and purpose for exercises. Skilled judgment was used in selection of appropriate interventions. Correct performance of therapeutic exercises was facilitated with verbal cuing. Manual Therapy: 1: STM & CFM to R UT: Push to tolerance. 2: R UT Stripping to patient tolerance. 3: TPR to RUT 4: Manual Flexibility to R UT. Skilled Intervention: Manual skills to improve joint mobility, ROM, and decrease pain. Utilized anatomy knowledge of the therapist, and assessment of patient's response to intervention. Billing Therapeutic Exercise Treatment Minutes: 12 Manual TherapyTreatment Minutes: 27 Skilled Treatment Time Minutes (timed and untimed codes): 39 Total Session Time (minutes): 39 Session Start Time : 750 Session Stop Time : 829 Mario Glez PT documented in this encounter [facility] 06-04-2024 Note HNO ID: [id number] Author: MARIO GLEZ PT Service: ? Author Type: Physical Therapist Type: Progress Notes Filed: 06/04/2024 09:58 Note Text: Episode Visit Count: 4 Therapist That Will Accept/Oversee The Plan Of Care: Mario Glez PT. Start of Care Date: 05/27/24 Onset Date: 05/19/24 Plan of Care Certification Date: 05/27/24 Next Certification Due Date: 07/01/24 REHABILITATION AND SPORTS THERAPY PHYSICAL THERAPY TREATMENT NOTE ASSESSMENT: Charline Sanchez tolerated the session with decreased symptoms. He demonstrated improvements in flexibility of the neck following session. The patient will continue to benefit from ongoing skilled physical therapy to progress toward set goals. PLAN FOR NEXT VISIT: Progress ther-ex for low back and neck as tolerated; manual R Neck. SUBJECTIVE: Reports trying to go back into bed with the neck the past week, didn't do the best. Was able to tolerate the bed last night. States the R Neck is there, would call it more of an aggravation > pain. R Neck flare has gone down since it started. Back has not been as bad because he has not done to much strenous things due to neck flare up. Pain: Pain Pain Level: 2 Pain Location: Neck Description: (Aggravation.) Frequency: Continuous Additional Pain Information : Location 2 Pain Level 2: 0 Pain Location 2: Low Back/Lumbar Spine- Midline Post Treatment Pain Post Treatment Pain Location: Neck - Right Post Treatment Pain Description: Sore OBJECTIVE MEASURES WITH LEVEL OF FUNCTION: TTP RUT. Tissue restrictions through RUT (better than previous) TREATMENT: Therapeutic Exercise: 1: *Discussed the purpose of STM using lacrosse ball vs wall for irritated soft tissue. Explained how to perform STM properly and frequency. Handout sent home for HEP. 2: R Levator Scap Stretch: 1x30. 3: R Upper Trap Stretch (R Arm Behind Back, L SB): x30. 4: Scap Squeezes: 2x10. Skilled Intervention: Patient was educated in proper exercise technique and purpose for exercises. Skilled judgment was used in selection of appropriate interventions. Correct performance of therapeutic exercises was facilitated with verbal cuing. Manual Therapy: 1: STM AND CFM to R UT: Push to tolerance. 2: R UT Stripping to patient tolerance. 3: TPR to RUT 4: Manual Flexibility to R UT. Skilled Intervention: Manual skills to improve joint mobility, ROM, and decrease pain. Utilized anatomy knowledge of the therapist, and assessment of patient's response to intervention. Billing Therapeutic Exercise Treatment Minutes: 12 Manual TherapyTreatment Minutes: 27 Skilled Treatment Time Minutes (timed and untimed codes): 39 Total Session Time (minutes): 39 Session Start Time : 0751 Session Stop Time : 0830 Mario Glez, PT [facility] 05-27-2024 History of Present illness Narrative Program_ID:[id number] Access Code: [email or web address] URL: [email or web address] Date: 05-27-2024 Prepared By: Mario Glez Program Notes Exercises - Seated Scapular Retraction - 2 x daily - 7 x weekly - 2 sets - 10 reps - Gentle Levator Scapulae Stretch - 2 x daily - 7 x weekly - 2-3 sets - reps - Upper Trapezius Stretch - 2 x daily - 7 x weekly - 2-3 sets - reps Images from the original note were not included. Episode Visit Count: 1 Therapist That Will Accept/Oversee The Plan Of Care: Mario Glez PT. Start of Care Date: 05/27/24 Onset Date: 05/19/24 Plan of Care Certification Date: 05/27/24 Next Certification Due Date: 07/01/24 Patient Identified by Name and Date of : Yes REHABILITATION AND SPORTS THERAPY PHYSICAL THERAPY RE-EVALUATION PLAN OF CARE UPDATE: Assessment: Charline Sanchez presents to PT for R Sided-Neck & Periscap Pain. Objective findings present Musculoskeletal in Nature. Patient also being seen for Chronic LBP will update goals and add neck goals in. Patient present with impairments in ADL's, flexibility, independence in exercise, overall function, patient reported outcome measures, posture, range of motion, soft tissue healing, symptom management, and tissue tenderness that interfere with physical activities, sleeping, Comments Neck ROM, Driving.. Current prognosis is Good due to: current objective clinical presentation, acuteness of condition . The patient will benefit from continued skilled therapy services to meet the updated goals for this plan of care as noted below. LOW BACK: Goals for Episode of Care: established 04/29/24 Patient reported outcome of physical function will increase T-score by a minimum 5 points. (NOT MET) [place] in home exercise program. Partially MET Patient will decrease pain rating by 2 points to meet minimal clinical important difference for numeric pain rating scale. (Progressing Towards) Restore pain-free lumbar ROM to WNL to allow for improved functional Mobility (Progressing Towards) Stand / Walk to return to regular walking program and ADLs without pain/symptoms. (Progressing Towards) Patient will increase strength of trunk to 4+/5 to allow for return to prior functional status and perform ADLs. (Progressing Towards) NECK: Added 05/27/24 Patient reported outcome of physical function will increase T-score by a minimum 5 points. Independent in a Home Exercise Program. Patient will decrease pain rating by 2 points to meet minimal clinical important difference for numeric pain rating scale. Restore pain free cervical ROM to WFL to allow for improved ADL/IADLs. Drive with no aggravation of pain/symptoms. Sleep throughout the night without pain/symptoms. Improve NDI Score by 6 points (12%) to indicate a Minimal Clinical Important Difference. (19 on eval.) Time Frame for Goals and Treatment : 07/01/24 Patient Goals: Alleviate Pain. Planned Interventions, Frequency, and Duration: 1x/week, 3 weeks (Added two visits to one already scheduled.) Total Number of Visits Planned: 3 Patient to be seen for Therapeutic exercise (70198), Neuromuscular re-education (40156), Manual therapy (30055), Therapeutic activities (54991), Self-nursing home management (97141), Patient/Family/Caregiver Education PLAN FOR NEXT VISIT: Review, correct and progress HEP to tolerance progressing to tolerance. Treat low back and neck as tolerated and PRN. SUBJECTIVE: Complaining of significant R neck pain and nerve pain into the distal shoulders from 05/19/24. Attributes this to sleeping wrong and no injury and/or fall. Went to urgent care 05/21/24 and given prednisone and mm relaxer. Pain has decreased since taking and ROM has slightly returned. Feels pull/soreness on the R side neck/medial scapula. Describes as achy/sore overall. Ice/Heat, STM with ball seems to somewhat relieve. Returned to bed last night, could not stay comfortable.. Patient Goals: Alleviate Pain. Functional Limitations: physical activities, sleeping, Comments Functional Limitation Comments: Neck ROM, Driving. Prior Level of Function: Independent without limitations Intake Information: Prescription present Previous Treatment: NSAIDs , Muscle relaxer , Steroids Falls Interview: No positive findings with falls interview Red Flags Vertebral Fracture Clinical Reasoning: No identified risk factors Cancer Red Flags: Age >50 or <20 Cancer Clinical Reasoning: Proceed with caution Infection Clinical Reasoning: No identified risk factors. Cervical Arterial Dysfunction Clinical Reasoning: No identified risk factors Cervical Myelopathy: Age > 45 yo Cervical Myelopathy Diagnostic Rule: Proceed with caution Red Flags - Cervical Cancer Red Flags: Age >50 or <20 Cancer Clinical Reasoning: Proceed with caution Infection Clinical Reasoning: No identified risk factors. Cervical Arterial Dysfunction Clinical Reasoning: No identified risk factors Cervical Myelopathy: Age > 45 yo Cervical Myelopathy Diagnostic Rule: Proceed with caution Pain: Pain Pain Level: 5 Pain Location: Neck - Right Description: Aching, Sore Frequency: Continuous Post Treatment Pain Post Treatment Pain Location: Neck - Right Post Treatment Pain Description: Sore PROMIS Scales 05/27/2024 04/29/2024 09/02/2019 Higher is Better Phys Func - Score 42 (mild dysfunction) 41 (mild dysfunction) 41 (mild dysfunction) Phys Func - Percentile 21 18 18 Self-Eff Symptom - Score 48 (Average) 48 (Average) Self-Eff Symptom - Percentile 42 42 T-scores: mean of general population = 50. 5 points is clinically meaningfully difference Percentiles provide an indication of how the patient's score ranks in relation to the general population. Higher percentile rankings indicate better function/quality of life. 50th percentile is the average of the general population and indicates half of respondents had a worse score. OBJECTIVE MEASURES WITH LEVEL OF FUNCTION: Posture / Alignment Posture: Forward head, Rounded shoulders Spine Observations Spine Observations: Increased TTP through R Periscap area. Trigger Points Reproduced in RUT. R Cervical Spine Palpation Tenderness: Upper trapezius, Levator scapulae, Paraspinals L Cervical Spine Palpation Tenderness: Upper trapezius, Levator scapulae, Paraspinals R Thoracic Spine Palpation Tenderness: Rhomboid Sensation - Cervical Spine Cervical Spine Sensation: Grossly Intact Cervical Spine ROM Cervical ROM : Measurement AROM Cervical Flexion AROM (degrees) : 40 Degrees (Pull) Cervical Extension AROM (degrees) : 35 Degrees (Tight) Cervical Side-Bend Right AROM (degrees): 40 Degrees Cervical Side-Bend Left AROM (degrees) : 15 Degrees Cervical Rotation Right AROM (degrees) : 40 Degrees Cervical Rotation Left AROM (degrees) : 40 Degrees Thoracic Spine AROM Thoracic Flexion: Minimal limitation Thoracic Extension: Minimal limitation Thoracic Sidebend Right: Minimal limitation Thoracic Sidebend Left: Minimal limitation Thoracic Rotation Right: Minimal limitation Thoracic Rotation Left: Minimal limitation UE Flexibility Flexibility: Upper Trapezius, Levator Scapulae R Upper Trapezius Flexibilty Comments: Major Limitation L Upper Trapezius Flexibility Comments: Moderate Limitation R Levator Scapulae Flexibilty Comments: Moderate Limitation L Levator Scapulae Flexibility Comments: Moderate Limitation UE and Cervical Strength R UE Strength: Grossly 4+/5 Periscap area. L UE Strength: Grossly 4+/5 Periscap area. Special Tests - Cervical Cervical Special Tests: Spurling Spurling: Right Negative, Left Negative TREATMENT: Therapeutic Exercise: 1: Reassessment for Acute Neck Pain. Patient educated on evaluation findings, rehabilitation process, anatomy of symptomatic area, likely source of symptoms, rationale for suggested plan of care. showed patient Travell and [place] referral patterns and discussed treatment options including massage, soft tissue mobilization, exercise 2: *R Levator Scap Stretch: 1x30. 3: *R Upper Trap Stretch (R Arm Behind Back, L SB): x30. 4: *Scap Squeezes. 5: RUT Flexibility: 3x30. Skilled Intervention: Patient was educated in proper exercise technique and purpose for exercises. Reviewed and educated patient on additions/changes for home exercise program as above (*). Skilled judgment was used in selection of appropriate interventions. Provided written instruction for home exercise program to facilitate proper performance and compliance. Correct performance of therapeutic exercises was facilitated with verbal cuing. Manual Therapy: 1: STM to R UT: Push to tolerance. 2: TPR to RUT: x10. 3: ART to RUT: x10. Skilled Intervention: Manual skills to improve joint mobility, ROM, and decrease pain. Utilized anatomy knowledge of the therapist, and assessment of patient's response to intervention. Billing * Re-Evaluation Complexity: 1 Unit Therapeutic Exercise Treatment Minutes: 15 Manual TherapyTreatment Minutes: 10 Skilled Treatment Time Minutes (timed and untimed codes): 42 Total Session Time (minutes): 42 Session Start Time : 832 Session Stop Time : 914 Mario Glez PT documented in this encounter [facility] 05-27-2024 Note HNO ID: [id number] Author: MARIO GLEZ PT Service: ? Author Type: Physical Therapist Type: Progress Notes Filed: 06/02/2024 09:42 Note Text: Episode Visit Count: 1 Therapist That Will Accept/Oversee The Plan Of Care: Mario Glez, PT. Start of Care Date: 05/27/24 Onset Date: 05/19/24 Plan of Care Certification Date: 05/27/24 Next Certification Due Date: 07/01/24 Patient Identified by Name and Date of : Yes REHABILITATION AND SPORTS THERAPY PHYSICAL THERAPY RE-EVALUATION PLAN OF CARE UPDATE: Assessment: Charline Sanchez presents to PT for R Sided-Neck AND Periscap Pain. Objective findings present Musculoskeletal in Nature. Patient also being seen for Chronic LBP will update goals and add neck goals in. Patient present with impairments in ADL's, flexibility, independence in exercise, overall function, patient reported outcome measures, posture, range of motion, soft tissue healing, symptom management, and tissue tenderness that interfere with physical activities, sleeping, Comments Neck ROM, Driving.. Current prognosis is Good due to: current objective clinical presentation, acuteness of condition . The patient will benefit from continued skilled therapy services to meet the updated goals for this plan of care as noted below. LOW BACK: Goals for Episode of Care: established 04/29/24 Patient reported outcome of physical function will increase T-score by a minimum 5 points. (NOT MET) Dickinson in home exercise program. Partially MET Patient will decrease pain rating by 2 points to meet minimal clinical important difference for numeric pain rating scale. (Progressing Towards) Restore pain-free lumbar ROM to WNL to allow for improved functional Mobility (Progressing Towards) Stand / Walk to return to regular walking program and ADLs without pain/symptoms. (Progressing Towards) Patient will increase strength of trunk to 4+/5 to allow for return to prior functional status and perform ADLs. (Progressing Towards) NECK: Added 05/27/24 Patient reported outcome of physical function will increase T-score by a minimum 5 points. Independent in a Home Exercise Program. Patient will decrease pain rating by 2 points to meet minimal clinical important difference for numeric pain rating scale. Restore pain free cervical ROM to WFL to allow for improved ADL/IADLs. Drive with no aggravation of pain/symptoms. Sleep throughout the night without pain/symptoms. Improve NDI Score by 6 points (12%) to indicate a Minimal Clinical Important Difference. (19 on eval.) Time Frame for Goals and Treatment : 07/01/24 Patient Goals: Alleviate Pain. Planned Interventions, Frequency, and Duration: 1x/week, 3 weeks (Added two visits to one already scheduled.) Total Number of Visits Planned: 3 Patient to be seen for Therapeutic exercise (22297), Neuromuscular re-education (64235), Manual therapy (37713), Therapeutic activities (18162), Self-nursing home management (61532), Patient/Family/Caregiver Education PLAN FOR NEXT VISIT: Review, correct and progress HEP to tolerance progressing to tolerance. Treat low back and neck as tolerated and PRN. SUBJECTIVE: Complaining of significant R neck pain and nerve pain into the distal shoulders from 05/19/24. Attributes this to sleeping wrong and no injury and/or fall. Went to urgent care 05/21/24 and given prednisone and mm relaxer. Pain has decreased since taking and ROM has slightly returned. Feels pull/soreness on the R side neck/medial scapula. Describes as achy/sore overall. Ice/Heat, STM with ball seems to somewhat relieve. Returned to bed last night, could not stay comfortable.. Patient Goals: Alleviate Pain. Functional Limitations: physical activities, sleeping, Comments Functional Limitation Comments: Neck ROM, Driving. Prior Level of Function: Independent without limitations Intake Information: Prescription present Previous Treatment: NSAIDs , Muscle relaxer , Steroids Falls Interview: No positive findings with falls interview Red Flags Vertebral Fracture Clinical Reasoning: No identified risk factors Cancer Red Flags: Age >50 or <20 Cancer Clinical Reasoning: Proceed with caution Infection Clinical Reasoning: No identified risk factors. Cervical Arterial Dysfunction Clinical Reasoning: No identified risk factors Cervical Myelopathy: Age > 45 yo Cervical Myelopathy Diagnostic Rule: Proceed with caution Red Flags - Cervical Cancer Red Flags: Age >50 or <20 Cancer Clinical Reasoning: Proceed with caution Infection Clinical Reasoning: No identified risk factors. Cervical Arterial Dysfunction Clinical Reasoning: No identified risk factors Cervical Myelopathy: Age > 45 yo Cervical Myelopathy Diagnostic Rule: Proceed with caution Pain: Pain Pain Level: 5 Pain Location: Neck - Right Description: Aching, Sore Frequency: Continuous Post Treatment Pain Post Treatment Pain Location: Neck - Right Post Slade (more content not included)... [facility] 05-22-2024 Instructions Michelle Martin APRN.JU - 05/22/2024 7:18 AM EST Continue with Prednisone daily until gone. May use Flexeril (muscle relaxant) as needed for muscle tension. May apply heat/ice, gentle stretching, and massage therapy may be helpful. Follow up with Dr. Parsons as needed. Consult PT for neck pain has been placed Follow up as needed. documented in this encounter [facility] 05-22-2024 History of Present illness Narrative This is a 69 year old male who presents today with: Patient presents with: Acute Visit: Stiff neck HISTORY OF PRESENT ILLNESS: Charline Sanchez is a 69 year old male. Patient presents with: Acute Visit: Stiff neck Here in the office for neck pain follow up. Went to express care yesterday. Given rx for prednisone burst 40 mg for 5 days and flexeril. Woke up Sunday with right sided neck pain. Pain mildly improved today. Pain seems to radiate into the right upper arm and shoulder blade. No numbness and tingling. History of cervical spine arthritis. Has had cervical injections with Dr. Parsons (pain management) in the past. MRI Cervical Spine: 2020 IMPRESSION: Mild degenerative changes of the cervical spine as discussed level by level in the body of the report. Findings are most pronounced at C4-5 with disc/osteophyte complex bulge abutting cord ventrally, no cord compression or intramedullary signal abnormality. PAST MEDICAL HISTORY: PAST MEDICAL HISTORY Diagnosis Date BPH associated with nocturia Controlled type 2 diabetes mellitus without complication, without long-term current use of insulin (HCC) 06/19/2014 06/19/14 HbA1c 8.1 DVT of lower limb, acute ([facility]) 07/13/2011 Elevated prostate specific antigen (PSA) 12/10/2023 Hyperlipidemia LDL goal < 100 05/16/2013 Lumbar degenerative disc disease 07/09/2012 Pappas's neuroma 05/16/2013 OAB (overactive bladder) 03/24/2024 Sciatica Superficial spreading malignant melanoma of skin (HCC) 12/03/2014 PAST SURGICAL HISTORY Procedure Laterality Date EXC SKIN MALIG >4CM REMAINDR BODY 04/16/2017 Squamous cell carcinoma completely excised clean margins MELANOMA OF SKIN EXCISION SYN RPT Left 2015 back MELANOMA OF SKIN EXCISION SYN RPT 04/16/2017 right posterior ear lesion [facility] TONSILLECTOMY PRIMARY/SECONDARY <AGE 12 Tonsillectomy ALLERGIES Kidney Beans, Lisinopril, and Tyler Seed MEDICATIONS Current Outpatient Medications Medication Sig cyclobenzaprine (FLEXERIL) 5 mg tablet Take 1 tablet by mouth three times a day. predniSONE (DELTASONE) 20 mg tablet Take 2 tablets by mouth once daily for 5 days. trospium (SANCTURA) 20 mg tablet Take 1 tablet by mouth once daily. metFORMIN (GLUCOPHAGE) 500 mg tablet Take 1 tablet by mouth two times a day with meals. tamsulosin (FLOMAX) 0.4 mg Take 2 capsules by mouth daily at bedtime. atorvastatin (LIPITOR) 20 mg tablet Take 1 tablet by mouth once daily. amLODIPine (NORVASC) 10 mg tablet Take 1 tablet by mouth once daily. cholecalciferol, Vitamin D3, (VITAMIN D3) 1,250 mcg (50,000 unit) cap capsule Take 1 capsule by mouth one time a week. take with food Valsartan-hydroCHLOROthiazide (DIOVAN HCT) 80-12.5 mg per tablet Take 1 tablet by mouth once daily. gabapentin (NEURONTIN) 300 mg capsule By mouth: 300mg qam, 600mg qHS (Patient taking differently: Patient takes 300 MG by mouth twice daily) albuterol HFA (VENTOLIN HFA) 90 mcg/actuation inhaler Inhale 2 Puffs as instructed every 4 hours as needed for wheezing/shortness of breath. (Patient not taking: Reported on 05/21/2024) No current facility-administered medications for this visit. FAMILY HISTORY Problem Relation Age of Onset Heart Father valve Arthritis Mother knees,hips,lumbar spine Diabetes Mother other (electrical injury) Brother other (unknown) Brother Social History Tobacco Use Smoking status: Never Smokeless tobacco: Never Vaping Use Vaping status: Never Used Substance Use Topics Alcohol use: Not Currently Comment: occassionally Drug use: Never REVIEW OF SYSTEMS GENERAL: No weight loss, malaise or fevers/chills HEENT: Negative for frequent or significant headaches, No changes in hearing or vision. NECK: Negative for lumps, goiter, pain and significant neck swelling RESPIRATORY: Negative for cough, hemoptysis, wheezing, dyspnea or shortness of breath CARDIOVASCULAR: Negative for chest pain, leg swelling, orthopnea, or palpitations GI: No nausea, vomiting, or diarrhea/constipation. No hematochezia/melena. No heartburn or reflux symptoms. : No history of dysuria, frequency or incontinence MUSCULOSKELETAL: + Neck Pain SKIN: Negative for lesions, rash, and itching ENDOCRINE: Negative for cold or heat intolerance, polyuria, polydipsia and goiter NEURO: No history of headaches, syncope, paralysis, seizures or tremors MOOD: Negative for depression, anxiety, or suicidal ideation. EXAM: BP 116/70 Pulse 80 Resp 16 Wt 94.6 kg (208 lb 8.9 oz) SpO2 96% BMI 31.71 kg/m PHYSICAL EXAM: General Appearance: Well appearing, alert, in no acute distress, well-hydrated, well nourished. Skin: Skin color, texture, turgor normal, no suspicious rashes or lesions. Head: Normocephalic, no masses, lesions, tenderness or abnormalities. Eyes: Anicteric sclera. Extraocular movements are intact. Extremities: No deformities, edema, skin discoloration, clubbing or cyanosis. Good capillary refill. Musculoskeletal: Reduced ROM of cervical spine, cervical spine tenderness with palpation, moderate to severe right trapezius muscle tension noted. Tenderness along medial scapula. Peripheral Pulses: Normal, Capillary refill <2secs, strong peripheral pulses, Pulses palpable. Neurologic: Gait normal. Sensation grossly intact. ASSESSMENT/PLAN: 1. Strain of neck muscle, initial encounter - ICD9: 847.0, ICD10: S16.1XXA (primary diagnosis) - Continue to take prednisone until finished. - May continue with flexeril as needed. - May apply heat/ice, gentle stretching, and massage therapy. - If pain gets worse recommend follow-up with pain management. - Consult placed for physical therapy. - CONSULT TO PHYSICAL THERAPY 2. Cervical radiculopathy - ICD9: 723.4, ICD10: M54.12 - Same plan as #1. 3. Controlled type 2 diabetes mellitus without complication, without long-term current use of insulin (HCC) - ICD9: 250.00, ICD10: E11.9 - Stable, refill provided. - METFORMIN 500 MG TABLET Follow-up if no improvement. Discussed treatment plan and patient voices understanding. Patient's questions answered appropriately. Medications and potential side effects were discussed and patient voices understanding. Michelle Martin APRN.MUSIC COORDINATOR This note was partially generated using [employer] recognition system. Note was reviewed for accuracy. There may be minor misspellings or grammar miscues with Dragon voice recognition. documented in this encounter [facility] 05-22-2024 Note HNO ID: [id number] Author: MICHELLE MARTIN APRN.CNP Service: ? Author Type: Nurse Practitioner Type: Progress Notes Filed: 05/22/2024 08:04 Note Text: This is a 69 year old male who presents today with: Patient presents with: Acute Visit: Stiff neck HISTORY OF PRESENT ILLNESS: Charline Sanchez is a 69 year old male. Patient presents with: Acute Visit: Stiff neck Here in the office for neck pain follow up. Went to express care yesterday. Given rx for prednisone burst 40 mg for 5 days and flexeril. Woke up Sunday with right sided neck pain. Pain mildly improved today. Pain seems to radiate into the right upper arm and shoulder blade. No numbness and tingling. History of cervical spine arthritis. Has had cervical injections with Dr. Parsons (pain management) in the past. MRI Cervical Spine: 2020 IMPRESSION: Mild degenerative changes of the cervical spine as discussed level by level in the body of the report. Findings are most pronounced at C4-5 with disc/osteophyte complex bulge abutting cord ventrally, no cord compression or intramedullary signal abnormality. PAST MEDICAL HISTORY: PAST MEDICAL HISTORY Diagnosis Date BPH associated with nocturia Controlled type 2 diabetes mellitus without complication, without long-term current use of insulin (HCC) 06/19/2014 06/19/14 HbA1c 8.1 DVT of lower limb, acute ([facility]) 07/13/2011 Elevated prostate specific antigen (PSA) 12/10/2023 Hyperlipidemia LDL goal < 100 05/16/2013 Lumbar degenerative disc disease 07/09/2012 Pappas's neuroma 05/16/2013 OAB (overactive bladder) 03/24/2024 Sciatica Superficial spreading malignant melanoma of skin (HCC) 12/03/2014 PAST SURGICAL HISTORY Procedure Laterality Date EXC SKIN MALIG >4CM REMAINDR BODY 04/16/2017 Squamous cell carcinoma completely excised clean margins MELANOMA OF SKIN EXCISION SYN RPT Left 2015 back MELANOMA OF SKIN EXCISION SYN RPT 04/16/2017 right posterior ear lesion [facility] TONSILLECTOMY PRIMARY/SECONDARY Tonsillectomy ALLERGIES Kidney Beans, Lisinopril, and Tyler Seed MEDICATIONS Current Outpatient Medications Medication Sig cyclobenzaprine (FLEXERIL) 5 mg tablet Take 1 tablet by mouth three times a day. predniSONE (DELTASONE) 20 mg tablet Take 2 tablets by mouth once daily for 5 days. trospium (SANCTURA) 20 mg tablet Take 1 tablet by mouth once daily. metFORMIN (GLUCOPHAGE) 500 mg tablet Take 1 tablet by mouth two times a day with meals. tamsulosin (FLOMAX) 0.4 mg Take 2 capsules by mouth daily at bedtime. atorvastatin (LIPITOR) 20 mg tablet Take 1 tablet by mouth once daily. amLODIPine (NORVASC) 10 mg tablet Take 1 tablet by mouth once daily. cholecalciferol, Vitamin D3, (VITAMIN D3) 1,250 mcg (50,000 unit) cap capsule Take 1 capsule by mouth one time a week. take with food Valsartan-hydroCHLOROthiazide (DIOVAN HCT) 80-12.5 mg per tablet Take 1 tablet by mouth once daily. gabapentin (NEURONTIN) 300 mg capsule By mouth: 300mg qam, 600mg qHS (Patient taking differently: Patient takes 300 MG by mouth twice daily) albuterol HFA (VENTOLIN HFA) 90 mcg/actuation inhaler Inhale 2 Puffs as instructed every 4 hours as needed for wheezing/shortness of breath. (Patient not taking: Reported on 05/21/2024) No current facility-administered medications for this visit. FAMILY HISTORY Problem Relation Age of Onset Heart Father valve Arthritis Mother knees,hips,lumbar spine Diabetes Mother other (electrical injury) Brother other (unknown) Brother Social History Tobacco Use Smoking status: Never Smokeless tobacco: Never Vaping Use Vaping status: Never Used Substance Use Topics Alcohol use: Not Currently Comment: occassionally Drug use: Never REVIEW OF SYSTEMS GENERAL: No weight loss, malaise or fevers/chills HEENT: Negative for frequent or significant headaches, No changes in hearing or vision. NECK: Negative for lumps, goiter, pain and significant neck swelling RESPIRATORY: Negative for cough, hemoptysis, wheezing, dyspnea or shortness of breath CARDIOVASCULAR: Negative for chest pain, leg swelling, orthopnea, or palpitations GI: No nausea, vomiting, or diarrhea/constipation. No hematochezia/melena. No heartburn or reflux symptoms. : No history of dysuria, frequency or incontinence MUSCULOSKELETAL: + Neck Pain SKIN: Negative for lesions, rash, and itching ENDOCRINE: Negative for cold or heat intolerance, polyuria, polydipsia and goiter NEURO: No history of headaches, syncope, paralysis, seizures or tremors MOOD: Negative for depression, anxiety, or suicidal ideation. EXAM: BP 116/70 Pulse 80 Resp 16 Wt 94.6 kg (208 lb 8.9 oz) SpO2 96% BMI 31.71 kg/m? PHYSICAL EXAM: General Appearance: Well appearing, alert, in no acute distress, well-hydrated, well nourished. Skin: Skin color, texture, turgor normal, no suspicious rashes or lesions. Head: Normocephalic, no masses, lesions, tenderness or abnorm (more content not included)... [facility] 05-21-2024 Note HNO ID: [id number] Author: HEATH FUENTES PA-C Service: ? Author Type: Physician Director Of Surgery Type: Progress Notes Filed: 05/21/2024 10:20 Note Text: This note was created using [employer]. Subjective Charline Sanchez is a 69 year old male. HPI Patient presents with right-sided neck pain over the past 3 days. He states he woke up with some stiffness on that side which has progressed to sharp pain when he tries to move his neck. Goes into his right shoulder blade area. He does have a history of stenosis of the cervical spine as well as arthritis. He had an MRI in 2020. No injury or trauma to his neck. No pain radiating down his arm. No weakness numbness or tingling. Pain seems to worsen with any kind of range of motion. He did try some ibuprofen which helped minimally yesterday. He does have follow-up with PCP tomorrow. Review of Systems Constitutional: Negative. HENT: Negative. Respiratory: Negative. Cardiovascular: Negative. Gastrointestinal: Negative. Musculoskeletal: Positive for neck pain and neck stiffness. All other systems reviewed and are negative. PAST MEDICAL HISTORY Diagnosis Date BPH associated with nocturia Controlled type 2 diabetes mellitus without complication, without long-term current use of insulin ([facility]) 06/19/2014 06/19/14 HbA1c 8.1 DVT of lower limb, acute ([facility]) 07/13/2011 Elevated prostate specific antigen (PSA) 12/10/2023 Hyperlipidemia LDL goal < 100 05/16/2013 Lumbar degenerative disc disease 07/09/2012 Pappas's neuroma 05/16/2013 OAB (overactive bladder) 03/24/2024 Sciatica Superficial spreading malignant melanoma of skin (HCC) 12/03/2014 Current Outpatient Medications Medication Sig Dispense Refill trospium (SANCTURA) 20 mg tablet Take 1 tablet by mouth once daily. 90 tablet 1 metFORMIN (GLUCOPHAGE) 500 mg tablet Take 1 tablet by mouth two times a day with meals. 180 tablet 3 tamsulosin (FLOMAX) 0.4 mg Take 2 capsules by mouth daily at bedtime. 180 capsule 3 atorvastatin (LIPITOR) 20 mg tablet Take 1 tablet by mouth once daily. 90 tablet 3 amLODIPine (NORVASC) 10 mg tablet Take 1 tablet by mouth once daily. 90 tablet 3 cholecalciferol, Vitamin D3, (VITAMIN D3) 1,250 mcg (50,000 unit) cap capsule Take 1 capsule by mouth one time a week. take with food 12 capsule 3 Valsartan-hydroCHLOROthiazide (DIOVAN HCT) 80-12.5 mg per tablet Take 1 tablet by mouth once daily. 90 tablet 3 gabapentin (NEURONTIN) 300 mg capsule By mouth: 300mg qam, 600mg qHS (Patient taking differently: Patient takes 300 MG by mouth twice daily) 90 capsule 2 cyclobenzaprine (FLEXERIL) 5 mg tablet Take 1 tablet by mouth three times a day. 12 tablet 0 predniSONE (DELTASONE) 20 mg tablet Take 2 tablets by mouth once daily for 5 days. 10 tablet 0 albuterol HFA (VENTOLIN HFA) 90 mcg/actuation inhaler Inhale 2 Puffs as instructed every 4 hours as needed for wheezing/shortness of breath. (Patient not taking: Reported on 05/21/2024) 1 Each 0 No current facility-administered medications for this visit. PAST SURGICAL HISTORY Procedure Laterality Date EXC SKIN MALIG >4CM REMAINDR BODY 04/16/2017 Squamous cell carcinoma completely excised clean margins MELANOMA OF SKIN EXCISION SYN RPT Left 2015 back MELANOMA OF SKIN EXCISION SYN RPT 04/16/2017 right posterior ear lesion [facility] TONSILLECTOMY PRIMARY/SECONDARY Tonsillectomy FAMILY HISTORY Problem Relation Age of Onset Heart Father valve Arthritis Mother knees,hips,lumbar spine Diabetes Mother other (electrical injury) Brother other (unknown) Brother Social History Tobacco Use Smoking status: Never Smokeless tobacco: Never Vaping Use Vaping status: Never Used Substance Use Topics Alcohol use: Not Currently Comment: occassionally Drug use: Never Objective BP 124/76 Pulse 76 Temp 36.3 ?C (97.3 ?F) Resp 16 Wt 95.6 kg (210 lb 12.2 oz) SpO2 95% BMI 32.05 kg/m? Physical Exam Vitals reviewed. Constitutional: Appearance: Normal appearance. HENT: Head: Normocephalic and atraumatic. Neck: Comments: Patient has tenderness along the right paraspinal musculature of the neck. No midline tenderness. Limited flexion and extension as well as rotation of the neck due to pain. Normal strength and sensation in upper extremities. Radial pulses 2+. Normal hand grasp strength bilaterally. Normal distal sensation. Some spasm noted along the trapezius on the right side. Cardiovascular: Rate and Rhythm: Normal rate and regular rhythm. Heart sounds: Normal heart sounds. Pulmonary: Effort: Pulmonary effort is normal. Breath sounds: Normal breath sounds. Skin: General: Skin is warm and dry. Neurological: Mental Status: He is alert. Assessment and Plan ASSESSMENT/PLAN: 1. Neck pain on right side - ICD9: 723.1, ICD10: M54.2 Patient has underlying cervical stenosis and does have some muscle spasm noted on exam today. Did not have any injury or trauma to his neck. I (more content not included)... [facility] 05-21-2024 History of Present illness Narrative This note was created using [employer]. Subjective Charline Sanchez is a 69 year old male. HPI Patient presents with right-sided neck pain over the past 3 days. He states he woke up with some stiffness on that side which has progressed to sharp pain when he tries to move his neck. Goes into his right shoulder blade area. He does have a history of stenosis of the cervical spine as well as arthritis. He had an MRI in 2020. No injury or trauma to his neck. No pain radiating down his arm. No weakness numbness or tingling. Pain seems to worsen with any kind of range of motion. He did try some ibuprofen which helped minimally yesterday. He does have follow-up with PCP tomorrow. Review of Systems Constitutional: Negative. HENT: Negative. Respiratory: Negative. Cardiovascular: Negative. Gastrointestinal: Negative. Musculoskeletal: Positive for neck pain and neck stiffness. All other systems reviewed and are negative. PAST MEDICAL HISTORY Diagnosis Date BPH associated with nocturia Controlled type 2 diabetes mellitus without complication, without long-term current use of insulin ([facility]) 06/19/2014 06/19/14 HbA1c 8.1 DVT of lower limb, acute ([facility]) 07/13/2011 Elevated prostate specific antigen (PSA) 12/10/2023 Hyperlipidemia LDL goal < 100 05/16/2013 Lumbar degenerative disc disease 07/09/2012 Pappas's neuroma 05/16/2013 OAB (overactive bladder) 03/24/2024 Sciatica Superficial spreading malignant melanoma of skin ([facility]) 12/03/2014 Current Outpatient Medications Medication Sig Dispense Refill trospium (SANCTURA) 20 mg tablet Take 1 tablet by mouth once daily. 90 tablet 1 metFORMIN (GLUCOPHAGE) 500 mg tablet Take 1 tablet by mouth two times a day with meals. 180 tablet 3 tamsulosin (FLOMAX) 0.4 mg Take 2 capsules by mouth daily at bedtime. 180 capsule 3 atorvastatin (LIPITOR) 20 mg tablet Take 1 tablet by mouth once daily. 90 tablet 3 amLODIPine (NORVASC) 10 mg tablet Take 1 tablet by mouth once daily. 90 tablet 3 cholecalciferol, Vitamin D3, (VITAMIN D3) 1,250 mcg (50,000 unit) cap capsule Take 1 capsule by mouth one time a week. take with food 12 capsule 3 Valsartan-hydroCHLOROthiazide (DIOVAN HCT) 80-12.5 mg per tablet Take 1 tablet by mouth once daily. 90 tablet 3 gabapentin (NEURONTIN) 300 mg capsule By mouth: 300mg qam, 600mg qHS (Patient taking differently: Patient takes 300 MG by mouth twice daily) 90 capsule 2 cyclobenzaprine (FLEXERIL) 5 mg tablet Take 1 tablet by mouth three times a day. 12 tablet 0 predniSONE (DELTASONE) 20 mg tablet Take 2 tablets by mouth once daily for 5 days. 10 tablet 0 albuterol HFA (VENTOLIN HFA) 90 mcg/actuation inhaler Inhale 2 Puffs as instructed every 4 hours as needed for wheezing/shortness of breath. (Patient not taking: Reported on 05/21/2024) 1 Each 0 No current facility-administered medications for this visit. PAST SURGICAL HISTORY Procedure Laterality Date EXC SKIN MALIG >4CM REMAINDR BODY 04/16/2017 Squamous cell carcinoma completely excised clean margins MELANOMA OF SKIN EXCISION SYN RPT Left 2014 back MELANOMA OF SKIN EXCISION SYN RPT 04/16/2017 right posterior ear lesion [facility] TONSILLECTOMY PRIMARY/SECONDARY <AGE 11 Tonsillectomy FAMILY HISTORY Problem Relation Age of Onset Heart Father valve Arthritis Mother knees,hips,lumbar spine Diabetes Mother other (electrical injury) Brother other (unknown) Brother Social History Tobacco Use Smoking status: Never Smokeless tobacco: Never Vaping Use Vaping status: Never Used Substance Use Topics Alcohol use: Not Currently Comment: occassionally Drug use: Never Objective BP 124/76 Pulse 76 Temp 36.3 C (97.3 F) Resp 16 Wt 95.6 kg (210 lb 12.2 oz) SpO2 95% BMI 32.05 kg/m Physical Exam Vitals reviewed. Constitutional: Appearance: Normal appearance. HENT: Head: Normocephalic and atraumatic. Neck: Comments: Patient has tenderness along the right paraspinal musculature of the neck. No midline tenderness. Limited flexion and extension as well as rotation of the neck due to pain. Normal strength and sensation in upper extremities. Radial pulses 2+. Normal hand grasp strength bilaterally. Normal distal sensation. Some spasm noted along the trapezius on the right side. Cardiovascular: Rate and Rhythm: Normal rate and regular rhythm. Heart sounds: Normal heart sounds. Pulmonary: Effort: Pulmonary effort is normal. Breath sounds: Normal breath sounds. Skin: General: Skin is warm and dry. Neurological: Mental Status: He is alert. Assessment and Plan ASSESSMENT/PLAN: 1. Neck pain on right side - ICD9: 723.1, ICD10: M54.2 Patient has underlying cervical stenosis and does have some muscle spasm noted on exam today. Did not have any injury or trauma to his neck. I did review his MRI from 2020. Did not feel acute imaging was indicated today. I will treat with prednisone. Discussed checking blood sugars while on this medication. Also did give a low-dose muscle relaxer with discussion of sedation and to not drive while on this medicine. Did discuss risk of fall as well. Follow-up with PCP. Heath Fuentes PA-C documented in this encounter [facility] 05-21-2024 Instructions Heath Fuentes PA-C - 05/21/2024 8:55 AM EST Ice Gentle stretching Check sugars while on prednisone Be cautious of sedation from muscle relaxant documented in this encounter [facility] 05-21-2024 Note HNO ID: [id number] Author: MARIO GLEZ, PT Service: ? Author Type: Physical Therapist Type: Progress Notes Filed: 05/21/2024 08:03 Note Text: Patient arrives to PT appointment on 05/21/24 at 7:45am complaining of significant neck pain and nerve pain into the distal shoulders. Attributes this to sleeping wrong and no injury and/or fall. Pain has been in significant pain for two days. Has not been seen or messaged PCP for this. After conversation, patient and therapist agree that it is probably best to reschedule today's appointment to a later date. Patient denies all red flag cervical sxs during conversation, discussed going to ER if red flag sx/sxs were to arise, patient agrees. Discussed importance of reaching out to PCP for further care AND workup on the cervical spine. First Contact Made: 7:45 a.m.. Patient Left: 7:55 a.m. Clinic visit no charge today. Mario Glez, PT, DPT. [facility] 05-21-2024 History of Present illness Narrative Patient arrives to PT appointment on 05/21/24 at 7:45am complaining of significant neck pain and nerve pain into the distal shoulders. Attributes this to sleeping wrong and no injury and/or fall. Pain has been in significant pain for two days. Has not been seen or messaged PCP for this. After conversation, patient and therapist agree that it is probably best to reschedule today's appointment to a later date. Patient denies all red flag cervical sxs during conversation, discussed going to ER if red flag sx/sxs were to arise, patient agrees. Discussed importance of reaching out to PCP for further care & workup on the cervical spine. First Contact Made: 7:45 a.m.. Patient Left: 7:55 a.m. Clinic visit no charge today. Mario Glez PT, DPT. documented in this encounter [facility] 05-14-2024 Note HNO ID: [id number] Author: MARIO GLEZ PT Service: ? Author Type: Physical Therapist Type: Progress Notes Filed: 05/14/2024 08:58 Note Text: Episode Visit Count: 3 Therapist That Will Accept/Oversee The Plan Of Care: Mario Glez Start of Care Date: 04/29/24 Onset Date: 10/31/23 Plan of Care Certification Date: 04/29/24 Next Certification Due Date: 06/03/24 REHABILITATION AND SPORTS THERAPY PHYSICAL THERAPY TREATMENT NOTE ASSESSMENT: Charline Sanchez tolerated the session with no issues.Patient brings up Urology appointment that he had yesterday, states he was discussing with Dr. Hightower his urinary AND bowel issues. Initially, on evaluation patient had denied red flag questioning. Patient could not recall exactly how long he has had these symptoms. Believes 2-3 years. States this does not occur every day, however unable to state how often per day/week. States trouble with urinary retention with strenous activity, and states only if bladder is full. States he believes the urinary AND bowel urgency is directly correlated to how much he drinks/eats. States he does get B Buttocks numbness. Denies any current red flag symptoms during this appointment. Therapist to notify referring PCP Dr. Ferrera for awareness of patients symptoms. The patient will continue to benefit from ongoing skilled physical therapy to progress toward set goals. PLAN FOR NEXT VISIT: Begin NS Strength as able. 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 States using his back more than normal for lifting, used a compression belt for support. Reports doing HEP 2x a day. Patient brings up Urology appointment, brings up urinary AND bowel issues (denied red flag symptoms on eval). See actual note (in assessment for discussion on red flag symptoms) on 05/14/24. Pain: Pain Pain Level: 6 Pain Location: Low Back/Lumbar Spine- Midline Description: Dull Post Treatment Pain Post Treatment Pain Level: No Change OBJECTIVE MEASURES WITH LEVEL OF FUNCTION: No objectives collected this date. TREATMENT: Therapeutic Exercise: 1: Sci-Fit: 5 Min, Level 3.0. DIrect 1:1 AND subjective taken. 2: 85 cm PB Rollouts: 3x10. 5 sec holds. 3: Seated Repeated Flexion: 2x10. Skilled Intervention: Patient was educated in proper exercise technique and purpose for exercises. Skilled judgment was used in selection of appropriate interventions. Self-Chcf Management: 1: *Significant time spent rationalizing and explaining cord compression/cauda equina to patient. Spent time explaining each red flag symptom independently and discussing based on his experience. 2: *Discussed what an MRI shows and why it is used for suspecting spinal cord compression. 3: *Discussed importance of immediate referral to ER if having worsening red flag symptoms. Patient understands. Skilled Intervention: Skilled judgment in the selection of proper modification for activity of daily living/home management based on clinical presentation, deficits, and needs. Education as noted above. Billing Therapeutic Exercise Treatment Minutes: 16 Self-Care/Home Management Treatment Minutes: 23 Skilled Treatment Time Minutes (timed and untimed codes): 39 Total Session Time (minutes): 39 Session Start Time : 0751 Session Stop Time : 0830 Mario Glez, PT [facility] 05-14-2024 History of Present illness Narrative Episode Visit Count: 3 Therapist That Will Accept/Oversee The Plan Of Care: Mario Glez Start of Care Date: 04/29/24 Onset Date: 10/31/23 Plan of Care Certification Date: 04/29/24 Next Certification Due Date: 06/03/24 REHABILITATION AND SPORTS THERAPY PHYSICAL THERAPY TREATMENT NOTE ASSESSMENT: Charline Sanchez tolerated the session with no issues.Patient brings up Urology appointment that he had yesterday, states he was discussing with Dr. Hightower his urinary & bowel issues. Initially, on evaluation patient had denied red flag questioning. Patient could not recall exactly how long he has had these symptoms. Believes 2-3 years. States this does not occur every day, however unable to state how often per day/week. States trouble with urinary retention with strenous activity, and states only if bladder is full. States he believes the urinary & bowel urgency is directly correlated to how much he drinks/eats. States he does get B Buttocks numbness. Denies any current red flag symptoms during this appointment. Therapist to notify referring PCP Dr. Ferrera for awareness of patients symptoms. The patient will continue to benefit from ongoing skilled physical therapy to progress toward set goals. PLAN FOR NEXT VISIT: Begin NS Strength as able. 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 States using his back more than normal for lifting, used a compression belt for support. Reports doing HEP 2x a day. Patient brings up Urology appointment, brings up urinary & bowel issues (denied red flag symptoms on eval). See actual note (in assessment for discussion on red flag symptoms) on 05/14/24. Pain: Pain Pain Level: 6 Pain Location: Low Back/Lumbar Spine- Midline Description: Dull Post Treatment Pain Post Treatment Pain Level: No Change OBJECTIVE MEASURES WITH LEVEL OF FUNCTION: No objectives collected this date. TREATMENT: Therapeutic Exercise: 1: Sci-Fit: 5 Min, Level 3.0. DIrect 1:1 & subjective taken. 2: 85 cm PB Rollouts: 3x10. 5 sec holds. 3: Seated Repeated Flexion: 2x10. Skilled Intervention: Patient was educated in proper exercise technique and purpose for exercises. Skilled judgment was used in selection of appropriate interventions. Self-Chcf Management: 1: *Significant time spent rationalizing and explaining cord compression/cauda equina to patient. Spent time explaining each red flag symptom independently and discussing based on his experience. 2: *Discussed what an MRI shows and why it is used for suspecting spinal cord compression. 3: *Discussed importance of immediate referral to ER if having worsening red flag symptoms. Patient understands. Skilled Intervention: Skilled judgment in the selection of proper modification for activity of daily living/home management based on clinical presentation, deficits, and needs. Education as noted above. Billing Therapeutic Exercise Treatment Minutes: 16 Self-Care/Home Management Treatment Minutes: 23 Skilled Treatment Time Minutes (timed and untimed codes): 39 Total Session Time (minutes): 39 Session Start Time : 075 Session Stop Time : 08 Mario Glez PT documented in this encounter [facility] 05-12-2024 Instructions Francisco Hightower APRN.NORMA DODD - 05/12/2024 10:10 AM EST Follow up with Francisco Hightower APRN.NORMA DODD in 6 months Continue with Flomax at bedtime and Trospium in the morning Continue with physical therapy. Consider updating Lumbar spine MRI Avoid bladder irritants - coffee, tea, cola drinks, chocolate, alcohol, artificial sweeteners and cigarettes Return to the clinic or seek care at [facility] for any worsening signs or symptoms: such as fevers, chills, worsening pain, gross blood in urine or worsening urinary symptoms. For severe symptoms seek care at the closest ER. Plan of care, medicaiton side effects and management reviewed with patient. Healthy Habits: Recommend regular physical activity, nutrition and healthy eating habits. Consume a variety of foods every day focusing on fruits, vegetables and lean meats). Eat foods low in fat, saturated fat and cholesterol. Eat a limited amount of salt and sodium. Drink adequate amounts of water and limit sugary drinks. Exercise portion control in meal selection. Establish a mindset of a wellness approach to health. Thank you for allowing me to provide your care today. I look forward to seeing you again and maintaining your health. Francisco Hightower APRN.NORMA DODD documented in this encounter [facility] 05-12-2024 Note HNO ID: [id number] Author: KRISTEN SHELTON LPN Service: ? Author Type: LICENSED NURSE Type: Progress Notes Filed: 05/12/2024 10:27 Note Text: Verified name and date of . CC Post Void Residual HPI: Israel flores is here now for an appointment with Joelle Singh APRN, DNP Procedure: Explained procedure to patient and verbalizes understanding. Performed a PVR. Patient urinated and instructed to empty bladder as much as possible just prior to having PVR done using bladder ultrasound scanner. Results of scan: 89 mL The patient tolerated the procedure well. Plan: Appointment with Francisco. [facility] 05-12-2024 History of Present illness Narrative Verified name and date of . CC Post Void Residual HPI: P atient is here now for an appointment with Joelle Singh APRN, NORMA Procedure: Explained procedure to patient and verbalizes understanding. Performed a PVR. Patient urinated and instructed to empty bladder as much as possible just prior to having PVR done using bladder ultrasound scanner. Results of scan: 89 mL The patient tolerated the procedure well. Plan: Appointment with Francisco. [facility] PSA/PROSTATE EVALUATION HISTORY AND PHYSICAL EXAM PATIENT: Charline Sanchez (68 year old) 12/10/2023 PCP: Viktor Ferrera MD REFERRING Provider: Michelle Martin APRN.C* Consultation requested by Dr. Michelle Martin [address] [facility] [id number] for an opinion regarding Elevated PSA and BPH my final recommendations will be communicated back to the requesting physician by way of shared Medical record or letter via [place] mail. CC: Elevated PSA and BPH HPI: The patient is 68 year old and is referred for evaluation of elevated PSA and BPH. Past med hx: HTN, DM, Chronic LBP, HLD Last A1C: 7.4 Seen in 12/10/23 for urinary symptoms and PSA. Elevated PSA: PSA elevation was noted to be 4.0 ng/mL. Prior studies include PSA of 4.07 in 2022. Was to obtain Free PSA prior to appt, but did not. No prior Bx or MRI of prostate No fhx of cancers - Renal, bladder or prostate BPH: On Flomax. C/o NTF 3-4 times. Increased Flomax to 2 caps at bedtime. Had dizziness for the first week and stopped taking 2 caps. Reduced back to one cap. Still taking on Flomax cap. At last appt Trial of Trospium 20mg daily. No sig change in symptoms with Trospium use. No SE. PRESENTING HISTORY: Hematuria: none Obstructive voiding symptoms: weak stream. Irritative voiding symptoms: frequency, urgency, and nocturia Urinary retention: no Urinary incontinence: no Urinary tract infection: no Patient Entered Questionnaires: INTERNATIONAL PROSTATE SYMPTOM SCORE (I-PSS) PREVIOUS TOTAL IPSS SCORE: 11 QOL = 4 1. Incomplete emptying 1 2. Frequency 1 3. Intermittency 2 4. Urgency 3 5. Weak stream 1 6. Straining 0 7. Nocturia 3 TOTAL IPSS SCORE 11 QOL = 4 PROMIS Global Health 09/02/2019 04/29/2024 PROMIS Global Health Scale Physical Health Percentile 15 41 Mental Health Percentile 26 63 Percentiles provide an indication of how the patient's score ranks in relation to the general population. Higher percentile rankings indicate better function/quality of life. 50th percentile is the average of the general population and indicates half of respondents had a worse score. MEDICATIONS: Current Outpatient Medications Medication Sig metFORMIN (GLUCOPHAGE) 500 mg tablet Take 1 tablet by mouth two times a day with meals. tamsulosin (FLOMAX) 0.4 mg Take 2 capsules by mouth daily at bedtime. atorvastatin (LIPITOR) 20 mg tablet Take 1 tablet by mouth once daily. amLODIPine (NORVASC) 10 mg tablet Take 1 tablet by mouth once daily. cholecalciferol, Vitamin D3, (VITAMIN D3) 1,250 mcg (50,000 unit) cap capsule Take 1 capsule by mouth one time a week. take with food Valsartan-hydroCHLOROthiazide (DIOVAN HCT) 80-12.5 mg per tablet Take 1 tablet by mouth once daily. gabapentin (NEURONTIN) 300 mg capsule By mouth: 300mg qam, 600mg qHS (Patient taking differently: Patient takes 300 MG by mouth twice daily) albuterol HFA (VENTOLIN HFA) 90 mcg/actuation inhaler Inhale 2 Puffs as instructed every 4 hours as needed for wheezing/shortness of breath. trospium (SANCTURA) 20 mg tablet Take 1 tablet by mouth once daily. No current facility-administered medications for this visit. HISTORY: PAST MEDICAL HISTORY Diagnosis Date BPH associated with nocturia Controlled type 2 diabetes mellitus without complication, without long-term current use of insulin ([facility]) 06/19/2014 06/19/14 HbA1c 8.1 DVT of lower limb, acute ([facility]) 07/13/2011 Elevated prostate specific antigen (PSA) 12/10/2023 Hyperlipidemia LDL goal < 100 05/16/2013 Lumbar degenerative disc disease 07/09/2012 Pappas's neuroma 05/16/2013 OAB (overactive bladder) 03/24/2024 Sciatica Superficial spreading malignant melanoma of skin ([facility]) 12/03/2014 PAST SURGICAL HISTORY Procedure Laterality Date EXC SKIN MALIG >4CM REMAINDR BODY 04/16/2017 Squamous cell carcinoma completely excised clean margins MELANOMA OF SKIN EXCISION SYN RPT Left 2015 back MELANOMA OF SKIN EXCISION SYN RPT 04/16/2017 right posterior ear lesion [facility] TONSILLECTOMY PRIMARY/SECONDARY <AGE 11 Tonsillectomy FAMILY HISTORY Problem Relation Age of Onset Heart Father valve Arthritis Mother knees,hips,lumbar spine Diabetes Mother other (electrical injury) Brother other (unknown) Brother Social History Tobacco Use Smoking status: Never Smokeless tobacco: Never Vaping Use Vaping status: Never Used Substance Use Topics Alcohol use: Not Currently Comment: occassionally Drug use: Never LABS: Latest Ref Rng 05/12/2024 GLUCOSE UA (POCT) Negative mg/dL 100 ! BILIRUBIN UA (POCT) Negative Negative KETONE UA (POCT) Negative mg/dL Negative SPECIFIC GRAVITY UA (POCT) 1.005 - 1.030 1.020 HEMOGLOBIN/BLOOD UA (POCT) Negative Trace-intact ! PH UA (POCT) 4.5 - 8.0 7.5 PROTEIN UA (POCT) Negative mg/dL Negative UROBILINOGEN UA (POCT) Normal E.U./dL 0.2 NITRITE UA (POCT) Negative Negative LEUKOCYTES UA (POCT) Negative Negative COLOR UA (POCT) Yellow CLARITY UA (POCT) Slightly Cloudy Legend: ! Abnormal Latest Ref Rng 03/24/2024 GLUCOSE UA (POCT) Negative mg/dL Negative BILIRUBIN UA (POCT) Negative Negative KETONE UA (POCT) Negative mg/dL Negative SPECIFIC GRAVITY UA (POCT) 1.005 - 1.030 1.025 HEMOGLOBIN/BLOOD UA (POCT) Negative Negative PH UA (POCT) 4.5 - 8.0 6.5 PROTEIN UA (POCT) Negative mg/dL Negative UROBILINOGEN UA (POCT) Normal E.U./dL 0.2 NITRITE UA (POCT) Negative Negative LEUKOCYTES UA (POCT) Negative Negative COLOR UA (POCT) Yellow CLARITY UA (POCT) Clear Creatinine Creatinine Date Value Ref Range Status 04/07/2024 0.96 0.73 - 1.22 mg/dL Final 10/08/2023 0.89 0.73 - 1.22 mg/dL Final 03/28/2023 0.92 0.73 - 1.22 mg/dL Final 09/12/2022 0.88 0.73 - 1.22 mg/dL Final Latest Ref Rng 02/09/2021 10/08/2023 PSA <2.60 ng/mL 4.46 (H) 4.03 (H) PSA, Percent Free % 21 26 PSA PSA (ng/mL) Date Value 04/07/2024 4.33 10/08/2023 4.03 03/08/2022 4.07 02/09/2021 4.46 PSA Screening (ng/mL) Date Value 03/28/2023 3.95 06/29/2020 4.67 OFFICE DATA: POST-VOID RESIDUAL BLADDER VOLUME: YES, 89 cc IMAGING None Review of Systems: PAIN ASSESSMENT: CURRENTLY HAVING NO PAIN GENERAL: No weight loss, malaise or fevers GI: No nausea, vomiting MUSCULOSKELETAL: Negative for generalized joint pain SKIN: Negative for rash HEMATOLOGY/LYMPHOLOGY: Negative for swollen nodes All other systems reviewed and noncontributory PHYSICAL EXAMINATION: VITALS: BP 132/80 (BP Site: Right Arm, BP Position: Sitting, BP Cuff Size: Large Adult) Pulse 70 Temp 36.5 C (97.7 F) (Temporal) Resp 14 Ht 172.7 cm (5' 8) Wt 93.9 kg (207 lb) SpO2 96% BMI 31.47 kg/m GENERAL: alert, no distress, normal affect RESPIRATORY: normal effort PELVIC FLOOR: good tone, no tenderness EXTREMITIES: normal SKIN: normal NEUROLOGIC: normal PCPT Risk Calculator: 5 % chance of high-grade prostate cancer, 13 % chance of low-grade cancer 82 % chance that the biopsy is negative for cancer. ASSESSMENT/PLAN: 1. BPH associated with nocturia - ICD9: 600.01, 788.43, ICD10: N40.1, R35.1 (primary diagnosis) Chronic - fair control. 68y/o male with elevated PSA, BPH and OAB symptoms. Reviewed BPH and elevated PSA with patient. Reviewed Flomax medication and its SE. Cont with 1 cap at bedtime and cont with Trospium for OAB and urgency. PVR = 89ml UA - trace bld and glu Plan: Cont with Flomax and Trospium Repeat Free PSA in Dec Decrease fluid intake at bedtime. Avoid caffeine. Follow up with Francisco Hightower APRN.CNP, DNP in 6 months - POST VOID RESIDUAL - UA DIP, URINE (POC) - TROSPIUM 20 MG TABLET 2. Elevated PSA - ICD9: 790.93, ICD10: R97.20 MDM: - JASMYNE Normal/No FHX of prostate cancer - Discussed the implications/etiologies of elevated PSA. Discussed possible causes of elevated PSA: including BPH, recent ejaculation, normal aging, prostatitis (infection/inflammation), UTI, Urinary retention and prostate cancer. Talked about approaches which would include surveillance with PSA rechecks at regular intervals, MRI of prostate followed by biopsy, or standard TRUS Bx. -After discussing the pros and cons of each approach we decided to proceed with repeat free PSA. Plan: - Free PSA in Jun - Consider MRI of Prostate - follow up with Francisco Hightower APRN.CNP, DNP in 6 months. - POST VOID RESIDUAL - UA DIP, URINE (POC) - TROSPIUM 20 MG TABLET 3. OAB (overactive bladder) - ICD9: 596.51, ICD10: N32.81 Plan as above. Trospium 20mg daily. follow up in 6 mths. - POST VOID RESIDUAL - UA DIP, URINE (POC) - TROSPIUM 20 MG TABLET 4. Urgency of urination - ICD9: 788.63, ICD10: R39.15 Has DDD and lumbar radiculopathy. Seeing PT. Continue with physical therapy. Consider updating Lumbar spine MRI with PCP and NS consult. RTC sooner if symptoms worsen. Plan as above This note was copied from previous note and exam dated 03/24/24. Author is Francisco Hightower APRN.NORMA DODD note reviewed and changes have been made or updates noted in the copy & paste portion of an encounter. Francisco Hightower DNP, CNP Department of Urology [facility] documented in this encounter [facility] 05-12-2024 Note HNO ID: [id number] Author: FRANCISCO HIGHTOWER APRN.CNP, DNP Service: ? Author Type: Nurse Practitioner Type: Progress Notes Filed: 05/12/2024 10:27 Note Text: [facility] PSA/PROSTATE EVALUATION HISTORY AND PHYSICAL EXAM PATIENT: Charline Sanchez (68 year old) 12/10/2023 PCP: Viktor Ferrera MD REFERRING Provider: Michelle Martin APRN.C* Consultation requested by Dr. Michelle Martin [address] [facility] [address] for an opinion regarding Elevated PSA and BPH my final recommendations will be communicated back to the requesting physician by way of shared Medical record or letter via US mail. CC: Elevated PSA and BPH HPI: The patient is 68 year old and is referred for evaluation of elevated PSA and BPH. Past med hx: HTN, DM, Chronic LBP, HLD Last A1C: 7.4 Seen in 12/10/23 for urinary symptoms and PSA. Elevated PSA: PSA elevation was noted to be 4.0 ng/mL. Prior studies include PSA of 4.07 in 2022. Was to obtain Free PSA prior to appt, but did not. No prior Bx or MRI of prostate No fhx of cancers - Renal, bladder or prostate BPH: On Flomax. C/o NTF 3-4 times. Increased Flomax to 2 caps at bedtime. Had dizziness for the first week and stopped taking 2 caps. Reduced back to one cap. Still taking on Flomax cap. At last appt Trial of Trospium 20mg daily. No sig change in symptoms with Trospium use. No SE. PRESENTING HISTORY: Hematuria: none Obstructive voiding symptoms: weak stream. Irritative voiding symptoms: frequency, urgency, and nocturia Urinary retention: no Urinary incontinence: no Urinary tract infection: no Patient Entered Questionnaires: INTERNATIONAL PROSTATE SYMPTOM SCORE (I-PSS) PREVIOUS TOTAL IPSS SCORE: 11 QOL = 4 1. Incomplete emptying 1 2. Frequency 1 3. Intermittency 2 4. Urgency 3 5. Weak stream 1 6. Straining 0 7. Nocturia 3 TOTAL IPSS SCORE 11 QOL = 4 PROMIS Global Health 09/02/2019 04/29/2024 PROMIS Global Health Scale Physical Health Percentile 15 41 Mental Health Percentile 26 63 Percentiles provide an indication of how the patient's score ranks in relation to the general population. Higher percentile rankings indicate better function/quality of life. 50th percentile is the average of the general population and indicates half of respondents had a worse score. MEDICATIONS: Current Outpatient Medications Medication Sig metFORMIN (GLUCOPHAGE) 500 mg tablet Take 1 tablet by mouth two times a day with meals. tamsulosin (FLOMAX) 0.4 mg Take 2 capsules by mouth daily at bedtime. atorvastatin (LIPITOR) 20 mg tablet Take 1 tablet by mouth once daily. amLODIPine (NORVASC) 10 mg tablet Take 1 tablet by mouth once daily. cholecalciferol, Vitamin D3, (VITAMIN D3) 1,250 mcg (50,000 unit) cap capsule Take 1 capsule by mouth one time a week. take with food Valsartan-hydroCHLOROthiazide (DIOVAN HCT) 80-12.5 mg per tablet Take 1 tablet by mouth once daily. gabapentin (NEURONTIN) 300 mg capsule By mouth: 300mg qam, 600mg qHS (Patient taking differently: Patient takes 300 MG by mouth twice daily) albuterol HFA (VENTOLIN HFA) 90 mcg/actuation inhaler Inhale 2 Puffs as instructed every 4 hours as needed for wheezing/shortness of breath. trospium (SANCTURA) 20 mg tablet Take 1 tablet by mouth once daily. No current facility-administered medications for this visit. HISTORY: PAST MEDICAL HISTORY Diagnosis Date BPH associated with nocturia Controlled type 2 diabetes mellitus without complication, without long-term current use of insulin ([facility]) 06/19/2014 06/19/14 HbA1c 8.1 DVT of lower limb, acute (HCC) 07/13/2011 Elevated prostate specific antigen (PSA) 12/10/2023 Hyperlipidemia LDL goal < 100 05/16/2013 Lumbar degenerative disc disease 07/09/2012 Pappas's neuroma 05/16/2013 OAB (overactive bladder) 03/24/2024 Sciatica Superficial spreading malignant melanoma of skin (HCC) 12/03/2014 PAST SURGICAL HISTORY Procedure Laterality Date EXC SKIN MALIG >4CM REMAINDR BODY 04/16/2017 Squamous cell carcinoma completely excised clean margins MELANOMA OF SKIN EXCISION SYN RPT Left 2014 back MELANOMA OF SKIN EXCISION SYN RPT 04/16/2017 right posterior ear lesion [facility] TONSILLECTOMY PRIMARY/SECONDARY Tonsillectomy FAMILY HISTORY Problem Relation Age of Onset Heart Father valve Arthritis Mother knees,hips,lumbar spine Diabetes Mother other (electrical injury) Brother other (unknown) Brother Social History Tobacco Use Smoking status: Never Smokeless tobacco: Never Vaping Use Vaping status: Never Used Substance Use Topics Alcohol use: Not Currently Comment: occassionally Drug use: Never LABS: Latest Ref Rng 05/12/2024 GLUCOSE UA (POCT) Negative mg/dL 100 ! BILIRUBIN UA (POCT) Negative Negative KETONE UA (POCT) Negative mg/dL Negative SPECIFIC GRAVITY UA (POCT) 1.005 - 1.030 1.020 HEMOGLOBIN/BLOOD UA (POCT) Negative Trace-intact ! (more content not included)... [facility] 05-09-2024 Note HNO ID: [id number] Author: MARIO GLEZ, PT Service: ? Author Type: Physical Therapist Type: Progress Notes Filed: 05/09/2024 11:12 Note Text: Episode Visit Count: 2 Therapist That Will Accept/Oversee The Plan Of Care: Mario Glez Start of Care Date: 04/29/24 Onset Date: 10/31/23 Plan of Care Certification Date: 04/29/24 Next Certification Due Date: 06/03/24 REHABILITATION AND SPORTS THERAPY PHYSICAL THERAPY TREATMENT NOTE ASSESSMENT: Charline Sanchez tolerated the session with decreased symptoms and no issues. He demonstrated proper completion of review of HEP. The patient will continue to benefit from ongoing skilled physical therapy to progress toward set goals. PLAN FOR NEXT VISIT: NS Strengthening. SUBJECTIVE: Low back is sore for patient and has been pretty sore; exercises went okay for patient, he got them done at least 1x. Pain: Pain Pain Level: 5 Pain Location: Low Back/Lumbar Spine- Midline Description: Dull OBJECTIVE MEASURES WITH LEVEL OF FUNCTION: TTP B Multifidus TREATMENT: Therapeutic Exercise: 1: Education AND discussion on performing exercise program 2-3x a day for progrssion in PT and eas of pain/sxs. 2: B SKC: 3x30. 3: Hooklying LTR: 2x10 each side, 10 holds. 4: DKC: 2x30. 5: Discussion AND conversation on DN and rationale for - for chronic pain and ROM deficits. Handout provided. Skilled Intervention: Patient was educated in proper exercise technique and purpose for exercises. Skilled judgment was used in selection of appropriate interventions. Patient education as noted. Manual Therapy: 1: IaSTM to B Lower Paraspinals L2-S1 Region. Manual Traction: Manual Belt Traction with caudal pull, LEs propped on stool 90/90: Pull to tolerance. x10 Min. Skilled Intervention: Manual skills to improve joint mobility, ROM, and decrease pain. Utilized anatomy knowledge of the therapist, and assessment of patient's response to intervention. Billing Therapeutic Exercise Treatment Minutes: 25 Manual TherapyTreatment Minutes: 20 Skilled Treatment Time Minutes (timed and untimed codes): 45 Total Session Time (minutes): 45 Session Start Time : 45 Session Stop Time : 829 Mario Glez, PT [facility] 05-09-2024 History of Present illness Narrative Episode Visit Count: 2 Therapist That Will Accept/Oversee The Plan Of Care: Mario Glez Start of Care Date: 04/29/24 Onset Date: 10/31/23 Plan of Care Certification Date: 04/29/24 Next Certification Due Date: 06/03/24 REHABILITATION AND SPORTS THERAPY PHYSICAL THERAPY TREATMENT NOTE ASSESSMENT: Charline Sanchez tolerated the session with decreased symptoms and no issues. He demonstrated proper completion of review of HEP. The patient will continue to benefit from ongoing skilled physical therapy to progress toward set goals. PLAN FOR NEXT VISIT: NS Strengthening. SUBJECTIVE: Low back is sore for patient\ and has been pretty sore; exercises went okay for patient, he got them done at least 1x. Pain: Pain Pain Level: 5 Pain Location: Low Back/Lumbar Spine- Midline Description: Dull OBJECTIVE MEASURES WITH LEVEL OF FUNCTION: TTP B Multifidus TREATMENT: Therapeutic Exercise: 1: Education & discussion on performing exercise program 2-3x a day for progrssion in PT and eas of pain/sxs. 2: B SKC: 3x30. 3: Hooklying LTR: 2x10 each side, 10 holds. 4: DKC: 2x30. 5: Discussion & conversation on DN and rationale for - for chronic pain and ROM deficits. Handout provided. Skilled Intervention: Patient was educated in proper exercise technique and purpose for exercises. Skilled judgment was used in selection of appropriate interventions. Patient education as noted. Manual Therapy: 1: IaSTM to B Lower Paraspinals L2-S1 Region. Manual Traction: Manual Belt Traction with caudal pull, LEs propped on stool 90/90: Pull to tolerance. x10 Min. Skilled Intervention: Manual skills to improve joint mobility, ROM, and decrease pain. Utilized anatomy knowledge of the therapist, and assessment of patient's response to intervention. Billing Therapeutic Exercise Treatment Minutes: 25 Manual TherapyTreatment Minutes: 20 Skilled Treatment Time Minutes (timed and untimed codes): 45 Total Session Time (minutes): 45 Session Start Time : 744 Session Stop Time : 829 Mario Glez PT documented in this encounter [facility] 05-05-2024 Telephone encounter Note Patient notified of results, verbalizes understanding of instructions. Carolann Moore LPN [facility] 05-05-2024 Miscellaneous Notes Patient notified of results, verbalizes understanding of instructions. Carolann Moore LPN Please let the patient know that his Cologuard was negative. Repeat Cologuard in 3 years. Montana Leblanc APRN.CNP documented in this encounter [facility] 05-05-2024 Telephone encounter Note Please let the patient know that his Cologuard was negative. Repeat Cologuard in 3 years. Montana Leblanc APRN.CNP [facility] Work Phone: 04-29-2024 History of Present illness Narrative Program_ID:[id number] Access Code: [email or web address] URL: [email or web address] Date: 04-29-2024 Prepared By: Mario Glez Program Notes Exercises - Hooklying Single Knee to Chest Stretch - 2 x daily - 7 x weekly - 3 sets - reps - Supine Double Knee to Chest - 3 x daily - 7 x weekly - 3 sets - reps - Supine Lower Trunk Rotation - 2 x daily - 7 x weekly - 2 sets - 10 reps - Seated Lumbar Flexion Stretch - 2 x daily - 7 x weekly - 3 sets - reps Images from the original note were not included. Episode Visit Count: 1 Therapist That Will Accept/Oversee The Plan Of Care: Mario Glez Start of Care Date: 04/29/24 Onset Date: 10/31/23 Plan of Care Certification Date: 04/29/24 Next Certification Due Date: 06/03/24 Patient Identified by Name and Date of : Yes REHABILITATION AND SPORTS THERAPY PHYSICAL THERAPY EVALUATION PLAN OF CARE: Assessment: Charline Sanchez presents with chief complaint of chronic back pain and intermittent B lower extremity paresthesias that interferes with bending, lifting, standing, rising from a chair, twisting . The patient presents with impairments in ADL's, flexibility, independence in exercise, overall function, posture, range of motion, strength, symptom management, and tissue tenderness. PROMIS (Patient-Reported Outcomes Measurement Information System) scores were reviewed and identified as a rehabilitation concern. Prognosis for therapy is Good due to: current objective clinical presentation, acuteness of condition, within-session changes .The patient will benefit from skilled therapy services to meet the goals established for this plan of care as noted below. Classification Pain Mechanism Classification: Neuropathic Low Back Pain Classification: Movement Control Goals for Episode of Care: established 04/29/24 Patient reported outcome of physical function will increase T-score by a minimum 5 points. Dickinson in home exercise program. Patient will decrease pain rating by 2 points to meet minimal clinical important difference for numeric pain rating scale. Restore pain-free lumbar ROM to WNL to allow for improved functional mobility Stand / Walk to return to regular walking program and ADLs without pain/symptoms. Patient will increase strength of trunk to 4+/5 to allow for return to prior functional status and perform ADLs. Patient Goals: Manage his pain better. Time Frame for Goals and Treatment : 06/29/24 Planned Interventions, Frequency, and Duration: Current Frequency: 1x/week Duration: 5 weeks Total Number of Visits Planned: 5 Planned Treatment Interventions: Therapeutic exercise (59269), Neuromuscular re-education (26691), Manual therapy (45696), Therapeutic activities (50690), Self-nursing home management (80901), Gait Training (24407), Body Mechanics Training, Patient/Family/Caregiver Education PLAN FOR NEXT VISIT: Review and correct HEP as needed; stretching and strengthening with flexion directional preference. Manual lumbar belt traction. Patient demonstrates good understanding of plan of care and treatment. The above goals and plan of care were discussed and agreed upon by patient/family. SUBJECTIVE: Reports lower back > legs. Has chronic back pain and decreased B LE strength; no sharp pain, just dull ache. Intermittent B LE paresthesias, has N/T right now in the calfs.. Wears compression socks for B Calf Swelling. states typical summer house/yard mgmt activities and heavy work caused more pain than usual the last couple months. PT in the past helped per report, song. traction. States walking does not bother him, standing still seems to bother him. Denies red flags. Patient Goals: Manage his pain better. Functional Limitations: bending, lifting, standing, rising from a chair, twisting Prior Level of Function: Independent without limitations Intake Information: Prescription present Previous Treatment: Physical Therapy Falls Interview: No positive findings with falls interview Spine History Sleep Affected by Pain: Not affected by pain PAST MEDICAL HISTORY Diagnosis Date BPH associated with nocturia Controlled type 2 diabetes mellitus without complication, without long-term current use of insulin ([facility]) 06/19/2014 06/19/14 HbA1c 8.1 DVT of lower limb, acute ([facility]) 07/13/2011 Elevated prostate specific antigen (PSA) 12/10/2023 Hyperlipidemia LDL goal < 100 05/16/2013 Lumbar degenerative disc disease 07/09/2012 Pappas's neuroma 05/16/2013 Sciatica Superficial spreading malignant melanoma of skin ([facility]) 12/03/2014 Pain: Pain Pain Level: 6 Pain Location: Low Back/Lumbar Spine- Midline Description: Dull PROMIS Scales 04/29/2024 09/02/2019 Higher is Better Phys Func - Score 41 (mild dysfunction) 41 (mild dysfunction) Phys Func - Percentile 18 18 Self-Eff Symptom - Score 48 (Average) Self-Eff Symptom - Percentile 42 T-scores: mean of general population = 50. 5 points is clinically meaningfully difference Percentiles provide an indication of how the patient's score ranks in relation to the general population. Higher percentile rankings indicate better function/quality of life. 50th percentile is the average of the general population and indicates half of respondents had a worse score. OBJECTIVE MEASURES WITH LEVEL OF FUNCTION: Spine Observations Spine Observations: Increased Lordosis Posturing in Standing. R Lumbar Spine Palpation Tenderness: Spinous process, PSIS (posterior superior iliac spine), Paraspinals L Lumbar Spine Palpation Tenderness: Spinous process, PSIS (posterior superior iliac spine), Paraspinals Sensation - Lumbar Sensation: Grossly Intact Lumbar Spine AROM Lumbar Flexion: Minimal limitation Lumbar Extension: Minimal limitation Lumbar R Side-Bend: Minimal limitation Lumbar L Side-Bend: Minimal limitation Lumbar R Rotation: Minimal limitation Lumbar L Rotation: Minimal limitation Lumbar Spine AROM Comments: Slow moving into AROM directions. Repeated Test Movements - Lumbar RFIS - Symptoms During: no effect RFIS - Symptoms After: no effect YANIRA - Symptoms During: no effect YANIRA - Symptoms After: no effect LE Flexibility Flexibility: Hamstring Flexibility R Hamstring Flexibility: Fair L Hamstring Flexibility: Fair Spine Joint Mobility Spine Joint Mobility : Lumbar/Thoracic Provocative level: L3, L4 Joint Mobility - L1: WNL Joint Mobility - L2: WNL Joint Mobility - L3: WNL Joint Mobility - L4: WNL Joint Mobility - L5: WNL LE Strength Trunk Strength: 3+/5 R LE Strength: Grossly 5/5 L LE Strength: Grossly 5/5 Special Tests - Hip and Spine Hip and Spine Special Tests: SLR Test, Slump Test SLR Test: Right Negative, Left Negative Slump Test: Right Negative, Left Negative Gait Gait Observation: No remarkable findings Education: Education Learning Preferences: Demonstration, Explanation Barriers: None Learning/educational needs: Health promotion, Home exercise program, Plan of Care Education Provided: Yes, see treatment interventions for education provided Education Provided To: Patient Education Mode/Type: Demonstration, Explanation/Discussion, Literature/Printed Materials Response to Education/Teach Back: States/Identifies TREATMENT: PT Treatment Interventions: Therapeutic Exercise, Manual Therapy, Self-Chcf Management Evaluation Therapeutic Exercise: 1: *B SKC: 1x30. 2: *DKC: 1x30. 3: *Hooklying LTR: x10 each 4: *Seated L/S Flexion Stretch: 1x30. Discussed elbows on Knees. 5: Discussed exam findings and rehab process; discussed how repeated flexion exercises can be used to increase forminal space and decrease the intensity of LBP & radicular pain. 6: Discussed discontinuing lumbar ext/arch technique when radicular sxs come on. Provided rationale. Skilled Intervention: Patient was educated in proper exercise technique and purpose for exercises. Reviewed and educated patient on additions/changes for home exercise program as above (*). Skilled judgment was used in selection of appropriate interventions. Provided written instruction for home exercise program to facilitate proper performance and compliance. Manual Therapy: 1: *Discussed and educated on mechanical belt traction vs. manual traction. Manual Traction: Manual Belt Traction with caudal pull, LEs propped on stool 90/90: Pull to tolerance. x6 Min. Skilled Intervention: Manual skills to improve joint mobility, ROM, and decrease pain. Utilized anatomy knowledge of the therapist, and assessment of patient's response to intervention. Self-Chcf Management: 1: *Education about lumbar anatomy related to diagnosis; discussed how compression of nerve roots can cause low back pain to peripheralize. Discussed avoiding exercises or activities that cause INC pain and/or peripheralize sxs. 2: *Discussed modifying activities that increase his LBP and B LE sxs; discussed stopping any exercise that increases his pain. Skilled Intervention: Skilled judgment in the selection of proper modification for activity of daily living/home management based on clinical presentation, deficits, and needs. Billing * Evaluation Low Complexity: 1 Unit Therapeutic Exercise Treatment Minutes: 10 Manual TherapyTreatment Minutes: 8 Self-Care/Home Management Treatment Minutes: 8 Skilled Treatment Time Minutes (timed and untimed codes): 41 Total Session Time (minutes): 41 Session Start Time : 834 Session Stop Time : 915 Mario Glez PT documented in this encounter [facility] 04-29-2024 Note HNO ID: [id number] Author: MARIO GLEZ PT Service: ? Author Type: Physical Therapist Type: Progress Notes Filed: 05/14/2024 09:03 Note Text: Episode Visit Count: 1 Therapist That Will Accept/Oversee The Plan Of Care: Mario Glez Start of Care Date: 04/29/24 Onset Date: 10/31/23 Plan of Care Certification Date: 04/29/24 Next Certification Due Date: 06/03/24 Patient Identified by Name and Date of : Yes REHABILITATION AND SPORTS THERAPY PHYSICAL THERAPY EVALUATION PLAN OF CARE: Assessment: Charline Sanchez presents with chief complaint of chronic back pain and intermittent B lower extremity paresthesias that interferes with bending, lifting, standing, rising from a chair, twisting . The patient presents with impairments in ADL's, flexibility, independence in exercise, overall function, posture, range of motion, strength, symptom management, and tissue tenderness. PROMIS? (Patient-Reported Outcomes Measurement Information System) scores were reviewed and identified as a rehabilitation concern. Prognosis for therapy is Good due to: current objective clinical presentation, acuteness of condition, within-session changes .The patient will benefit from skilled therapy services to meet the goals established for this plan of care as noted below. Classification Pain Mechanism Classification: Neuropathic Low Back Pain Classification: Movement Control Goals for Episode of Care: established 04/29/24 Patient reported outcome of physical function will increase T-score by a minimum 5 points. Dickinson in home exercise program. Patient will decrease pain rating by 2 points to meet minimal clinical important difference for numeric pain rating scale. Restore pain-free lumbar ROM to WNL to allow for improved functional mobility Stand / Walk to return to regular walking program and ADLs without pain/symptoms. Patient will increase strength of trunk to 4+/5 to allow for return to prior functional status and perform ADLs. Patient Goals: Manage his pain better. Time Frame for Goals and Treatment : 06/29/24 Planned Interventions, Frequency, and Duration: Current Frequency: 1x/week Duration: 5 weeks Total Number of Visits Planned: 5 Planned Treatment Interventions: Therapeutic exercise (98508), Neuromuscular re-education (28876), Manual therapy (53191), Therapeutic activities (17289), Self-nursing home management (83218), Gait Training (17434), Body Mechanics Training, Patient/Family/Caregiver Education PLAN FOR NEXT VISIT: Review and correct HEP as needed; stretching and strengthening with flexion directional preference. Manual lumbar belt traction. Patient demonstrates good understanding of plan of care and treatment. The above goals and plan of care were discussed and agreed upon by patient/family. SUBJECTIVE: Reports lower back > legs. Has chronic back pain and decreased B LE strength; no sharp pain, just dull ache. Intermittent B LE paresthesias, has N/T right now in the calfs.. Wears compression socks for B Calf Swelling. states typical summer house/yard mgmt activities and heavy work caused more pain than usual the last couple months. PT in the past helped per report, song. traction. States walking does not bother him, standing still seems to bother him. Denies saddle anesthesia, loss of bowel/bladder control, LE weakness, fever/chills, fall/injury. Patient Goals: Manage his pain better. Functional Limitations: bending, lifting, standing, rising from a chair, twisting Prior Level of Function: Independent without limitations Intake Information: Prescription present Previous Treatment: Physical Therapy Falls Interview: No positive findings with falls interview Spine History Sleep Affected by Pain: Not affected by pain PAST MEDICAL HISTORY Diagnosis Date BPH associated with nocturia Controlled type 2 diabetes mellitus without complication, without long-term current use of insulin ([facility]) 06/19/2014 06/19/14 HbA1c 8.1 DVT of lower limb, acute ([facility]) 07/13/2011 Elevated prostate specific antigen (PSA) 12/10/2023 Hyperlipidemia LDL goal < 100 05/16/2013 Lumbar degenerative disc disease 07/09/2012 Pappas's neuroma 05/16/2013 OAB (overactive bladder) 03/24/2024 Sciatica Superficial spreading malignant melanoma of skin ([facility]) 12/03/2014 Pain: Pain Pain Level: 6 Pain Location: Low Back/Lumbar Spine- Midline Description: Dull PROMIS Scales 04/29/2024 09/02/2019 Higher is Better Phys Func - Score 41 (mild dysfunction) 41 (mild dysfunction) Phys Func - Percentile 18 18 Self-Eff Symptom - Score 48 (Average) Self-Eff Symptom - Percentile 42 T-scores: mean of general population = 50. 5 points is clinically meaningfully difference Percentiles provide an indication of how the patient's score ranks in relation to the general population. Higher percentile rankings indicate better function/quality of life. 50th percentile is the average of t (more content not included)... [facility] 04-21-2024 Telephone encounter Note Prescription Refill Information The patient has been identified by name and date of : Yes Caregiver verified no other encounters exist for this prescription request: Yes Caregiver confirmed with patient/requestor that no other refills are due, in the near future, with this provider at this time: Yes The last office visit in the department: 04/10/24 Does the patient have a future office visit with this provider/department: Yes Requested Prescriptions Pending Prescriptions Disp Refills trospium (SANCTURA) 20 mg tablet [Pharmacy Med Name: TROSPIUM CHLORIDE 20 MG TABLET] 30 tablet 2 Sig: TAKE 1 TABLET BY MOUTH EVERY DAY Carolann Moore LPN April 21, 2024 12:16 PM [facility] 04-21-2024 Miscellaneous Notes Prescription Refill Information The patient has been identified by name and date of : Yes Caregiver verified no other encounters exist for this prescription request: Yes Caregiver confirmed with patient/requestor that no other refills are due, in the near future, with this provider at this time: Yes The last office visit in the department: 04/10/24 Does the patient have a future office visit with this provider/department: Yes Requested Prescriptions Pending Prescriptions Disp Refills trospium (SANCTURA) 20 mg tablet [Pharmacy Med Name: TROSPIUM CHLORIDE 20 MG TABLET] 30 tablet 2 Sig: TAKE 1 TABLET BY MOUTH EVERY DAY Carolann Moore LPN April 21, 2024 12:16 PM documented in this encounter [facility] 04-10-2024 History of Present illness Narrative Chief Complaint Patient presents with: Follow Up HPI Charline Sanchez is a 68 year old male who presents here today for follow up. Pt here today for his 6 month follow up. Has been getting his in-laws home cleaned up and ready to sell. GI/Uro - Denies any stomach issues, does have occasional constipation. Occasionally uses Miralax. Agreeable to Cologuard testing. Follows with Immanuel Hightower in Urology for BPH. Taking Flomax 0.4 mg 2 pills once daily and Sanctura 20 mg daily. Feels some of his urinary symptoms are related to his back issues as well. Mild cognitive impairment: Follows with Psychologist Jesse Morales and Neuro Dr. Pace. Is taking Gabapentin 300 mg 1 pill BID. Trying to find out why he's forgetting things and did neuropsychology testing. Had MRI completed on 12/26/23. HTN: Denies checking BP at home. No symptoms of chest pains, dizziness, or SOB. Taking Norvasc 10 mg daily and Diovan 80-12.5 mg daily. DM: Is on Metformin 500 mg 1 pill BID. Denies checking BS at home. No hypoglycemic episodes. Denies any neuropathy symptoms, but does have radicular issues from his back. Lipid: Does try to watch diet and exercise as much as he can. Tries to stay busy. Does have radicular back issues. Taking Lipitor 20 mg daily. Vit D - Deficient, taking Vitamin D3 50,000 international unit(s) once weekly. Back - Hx of DDD in his lumbar area and radiculopathy in lumbar. Due to his back issues he has to be careful and watch how much he does. Has done PT twice which he felt did help him, but not in quite some time. He previously did traction, which helped him. Has previously seen General Surgery for basal cell carcinoma this was in 2020. Hx of melanoma. Notes some spots on his back that he can squeeze and get a drainage from them. Feels they are a cyst. Areas will itch occasionally, but they are not bothersome. HM - At this time would like to think about Flu, Pneumo and Covid. Needs to receive Shingles vaccine through Pharmacy due to Medicare Insurance. Past medical history, appointments, medications, allergies reviewed. Previous Medical History PAST MEDICAL HISTORY Diagnosis Date BPH associated with nocturia Controlled type 2 diabetes mellitus without complication, without long-term current use of insulin (HCC) 06/19/2014 06/19/14 HbA1c 8.1 DVT of lower limb, acute (HCC) 07/13/2011 Elevated prostate specific antigen (PSA) 12/10/2023 Hyperlipidemia LDL goal < 100 05/16/2013 Lumbar degenerative disc disease 07/09/2012 Pappas's neuroma 05/16/2013 Sciatica Superficial spreading malignant melanoma of skin (HCC) 12/03/2014 Previous Surgical History PAST SURGICAL HISTORY Procedure Laterality Date EXC SKIN MALIG >4CM REMAINDR BODY 04/16/2017 Squamous cell carcinoma completely excised clean margins MELANOMA OF SKIN EXCISION SYN RPT Left 2014 back MELANOMA OF SKIN EXCISION SYN RPT 04/16/2017 right posterior ear lesion [facility] TONSILLECTOMY PRIMARY/SECONDARY <AGE 12 Tonsillectomy Family History FAMILY HISTORY Problem Relation Age of Onset Heart Father valve Arthritis Mother knees,hips,lumbar spine Diabetes Mother other (electrical injury) Brother other (unknown) Brother Patient Allergies ALLERGIES Allergen Reactions Kidney Beans GI Upset Lisinopril Cough Tyler Seed Other: See Comments Adverse taste in mouth Current Medications Current Outpatient Medications on File Prior to Visit Medication Sig trospium (SANCTURA) 20 mg tablet Take 1 tablet by mouth once daily. tamsulosin (FLOMAX) 0.4 mg Take 2 capsules by mouth daily at bedtime. atorvastatin (LIPITOR) 20 mg tablet Take 1 tablet by mouth once daily. amLODIPine (NORVASC) 10 mg tablet Take 1 tablet by mouth once daily. cholecalciferol, Vitamin D3, (VITAMIN D3) 1,250 mcg (50,000 unit) cap capsule Take 1 capsule by mouth one time a week. take with food (Patient not taking: Reported on 03/24/2024) Valsartan-hydroCHLOROthiazide (DIOVAN HCT) 80-12.5 mg per tablet Take 1 tablet by mouth once daily. gabapentin (NEURONTIN) 300 mg capsule By mouth: 300mg qam, 600mg qHS (Patient taking differently: Patient takes 300 MG by mouth twice daily) albuterol HFA (VENTOLIN HFA) 90 mcg/actuation inhaler Inhale 2 Puffs as instructed every 4 hours as needed for wheezing/shortness of breath. metFORMIN (GLUCOPHAGE) 500 mg tablet Take 1 tablet by mouth two times a day with meals. ibuprofen (MOTRIN) 800 mg tablet Take 1 tablet by mouth every 8 hours as needed (FOR PAIN. TAKE WITH FOOD). (Patient not taking: Reported on 03/24/2024) blood sugar diagnostic (FREESTYLE LITE STRIPS) test strip Test blood sugar(s) one times daily. Dx: 250.02. Insulin: No (Patient not taking: Reported on 12/24/2023) Lancets (FREESTYLE LANCETS) lancets Test blood sugar(s) one times daily. Dx: 250.02. Insulin: No (Patient not taking: Reported on 03/24/2024) No current facility-administered medications on file prior to visit. Social History Social History Tobacco Use Smoking status: Never Smokeless tobacco: Never Vaping Use Vaping status: Never Used Substance Use Topics Alcohol use: Not Currently Comment: occassionally Drug use: Never EXAM: BP 128/82 (BP Site: Left Arm, BP Position: Sitting, BP Cuff Size: Regular Adult) Pulse 78 Resp 18 Wt 93.6 kg (206 lb 5.6 oz) BMI 31.38 kg/m General Appearance: Well appearing, alert, in no acute distress, well-hydrated, well nourished and Overweight. Skin: Back evaluated, sebaceous cyst. No concerning lesions on exam. Normal benign mole on left upper back/neck area. Lungs: Lungs clear to auscultation. No wheezing, rhonchi, rales.. Heart: RRR without murmur, gallop, or rubs. No ectopy. Health Maintenance List Pneumococcal Vaccine: 65+(1 of 2 - PCV) Never done Shingrix Vaccine(1 of 2) Never done Diabetic Foot Exam due on 07/06/2021 Colorectal Cancer Screening due on 09/08/2022 Influenza Vaccine(1) due on 03/02/2024 Covid-19 Vaccine( season) due on 03/02/2024 Urine Albumin:Creatinine Ratio due on 03/28/2024 Hepatitis C Screening due on 10/09/2024 HbA1C due on 10/06/2024 Annual PCP Team Chronic Disease Visit due on 10/09/2024 Depression Screening due on 10/09/2024 Anxiety Screening due on 10/09/2024 Dilated Retinal Exam due on 02/11/2025 LDL Cholesterol due on 04/07/2025 BP Controlled (<130/80) due on 04/09/2025 RSV Vaccine(1 - 1-dose 75+ series) due on 2029 DTaP,Tdap,Td Vaccine(5 - Td or Tdap) due on 03/19/2031 Advance Directive Discussion Completed HPV Vaccine Aged Out Data reviewed Appointment on 04/07/2024 Component Date Value Protein, Total 04/07/2024 7.1 Albumin 04/07/2024 4.2 Calcium, Total 04/07/2024 9.3 Bilirubin, Total 04/07/2024 1.1 Alkaline Phosphatase 04/07/2024 99 AST 04/07/2024 18 ALT 04/07/2024 22 Glucose 04/07/2024 130 (H) BUN 04/07/2024 23 Creatinine 04/07/2024 0.96 Sodium 04/07/2024 141 Potassium 04/07/2024 3.7 Chloride 04/07/2024 100 CO2 04/07/2024 30 Anion Gap 04/07/2024 11 Estimated Glomerular Mahesh* 04/07/2024 86 Cholesterol, Total 04/07/2024 154 Triglyceride 04/07/2024 94 HDL Cholesterol 04/07/2024 41 Non HDL Cholesterol 04/07/2024 113 Fasting Time 04/07/2024 12 VLDL Cholesterol 04/07/2024 19 TC:HDL Ratio 04/07/2024 3.76 LDL Cholesterol 04/07/2024 94 LDL:HDL Ratio 04/07/2024 2.29 Hemoglobin A1C 04/07/2024 7.1 (H) Estimated Average Glucose 04/07/2024 157 PSA 04/07/2024 4.33 (H) PSA, Percent Free 04/07/2024 28 Vitamin D 25 Hydroxy 04/07/2024 41.3 Office Visit on 03/24/2024 Component Date Value GLUCOSE UA (POCT) 03/24/2024 Negative BILIRUBIN UA (POCT) 03/24/2024 Negative KETONE UA (POCT) 03/24/2024 Negative SPECIFIC GRAVITY UA (POC* 03/24/2024 1.025 HEMOGLOBIN/BLOOD UA (PO* 03/24/2024 Negative PH UA (POCT) 03/24/2024 6.5 PROTEIN UA (POCT) 03/24/2024 Negative UROBILINOGEN UA (POCT) 03/24/2024 0.2 NITRITE UA (POCT) 03/24/2024 Negative LEUKOCYTES UA (POCT) 03/24/2024 Negative COLOR UA (POCT) 03/24/2024 Yellow CLARITY UA (POCT) 03/24/2024 Clear ASSESSMENT/PLAN: 1. Controlled type 2 diabetes mellitus without complication, without long-term current use of insulin (HCC) - ICD9: 250.00, ICD10: E11.9 (primary diagnosis) - Controlled - Continue current medications - Counseled on healthy diet and regular exercise - COMPREHENSIVE METABOLIC PANEL - LIPID PANEL BASIC - ALBUMIN/CREATININE RATIO, URINE - HEMOGLOBIN A1C - METFORMIN 500 MG TABLET 2. Essential hypertension - ICD9: 401.9, ICD10: I10 - Controlled - Continue current medications - Recommend home blood pressure monitoring, to bring results to next visit - Encouraged sodium restriction, DASH or Mediterranean diet - Recommend regular aerobic exercise - COMPREHENSIVE METABOLIC PANEL - LIPID PANEL BASIC 3. Hyperlipidemia with target LDL less than 100 - ICD9: 272.4, ICD10: E78.5 - Controlled - Continue current medications - Counseled on healthy diet and regular exercise - COMPREHENSIVE METABOLIC PANEL - LIPID PANEL BASIC 4. Memory changes - ICD9: 780.93, ICD10: R41.3 - Cont f/u with Neuro 5. Vitamin D deficiency - ICD9: 268.9, ICD10: E55.9 - Continue current medication regimen. - check labs - VITAMIN D 25 HYDROXY 6. BPH associated with nocturia - ICD9: 600.01, 788.43, ICD10: N40.1, R35.1 - Cont f/u with Urology - Continue current medication regimen. 7. Elevated PSA - ICD9: 790.93, ICD10: R97.20 - Cont f/u with Urology 8. Screening for colon cancer - ICD9: V76.51, ICD10: Z12.11 - Ordered - COLOGUARD 9. Radiculopathy of lumbar region - ICD9: 724.4, ICD10: M54.16 Chronic low back pain - discussed doing PT, felt this was beneficial in the past. - CONSULT TO PHYSICAL THERAPY 6 mo f/u with labs and urine prior. I agree with the Chief Complaint, ROS, and Past Histories independently gathered by the clinical administrative support coordinator and the remaining scribed note accurately describes my personal service to the patient. Medical Decision Making: Problems: Moderate: 2+ stable chronic illnesses Data: Unique test result(s) reviewed: 3+ Unique test(s) ordered: 3+ Risk: Moderate: Drug management Medical Decision Making Level: 4 - Moderate Viktor Ferrera MD The documentation for this note was completed by Leonarda Morris MA acting as scribe for Viktor Ferrera MD. April 10, 2024 9:07 AM. Leonarda Morris MA documented in this encounter [facility] 04-10-2024 Note HNO ID: [id number] Author: VIKTOR FERRERA MD Service: ? Author Type: Physician Type: Progress Notes Filed: 04/10/2024 09:50 Note Text: Chief Complaint Patient presents with: Follow Up HPI Charline Sanchez is a 68 year old male who presents here today for follow up. Pt here today for his 6 month follow up. Has been getting his in-laws home cleaned up and ready to sell. GI/Uro - Denies any stomach issues, does have occasional constipation. Occasionally uses Miralax. Agreeable to Cologuard testing. Follows with Immanuel Hightower in Urology for BPH. Taking Flomax 0.4 mg 2 pills once daily and Sanctura 20 mg daily. Feels some of his urinary symptoms are related to his back issues as well. Mild cognitive impairment: Follows with Psychologist Jesse Morales and Neuro Dr. Pace. Is taking Gabapentin 300 mg 1 pill BID. Trying to find out why he's forgetting things and did neuropsychology testing. Had MRI completed on 12/26/23. HTN: Denies checking BP at home. No symptoms of chest pains, dizziness, or SOB. Taking Norvasc 10 mg daily and Diovan 80-12.5 mg daily. DM: Is on Metformin 500 mg 1 pill BID. Denies checking BS at home. No hypoglycemic episodes. Denies any neuropathy symptoms, but does have radicular issues from his back. Lipid: Does try to watch diet and exercise as much as he can. Tries to stay busy. Does have radicular back issues. Taking Lipitor 20 mg daily. Vit D - Deficient, taking Vitamin D3 50,000 international unit(s) once weekly. Back - Hx of DDD in his lumbar area and radiculopathy in lumbar. Due to his back issues he has to be careful and watch how much he does. Has done PT twice which he felt did help him, but not in quite some time. He previously did traction, which helped him. Has previously seen General Surgery for basal cell carcinoma this was in 2020. Hx of melanoma. Notes some spots on his back that he can squeeze and get a drainage from them. Feels they are a cyst. Areas will itch occasionally, but they are not bothersome. HM - At this time would like to think about Flu, Pneumo and Covid. Needs to receive Shingles vaccine through Pharmacy due to Medicare Insurance. Past medical history, appointments, medications, allergies reviewed. Previous Medical History PAST MEDICAL HISTORY Diagnosis Date BPH associated with nocturia Controlled type 2 diabetes mellitus without complication, without long-term current use of insulin (HCC) 06/19/2014 06/19/14 HbA1c 8.1 DVT of lower limb, acute ([facility]) 07/13/2011 Elevated prostate specific antigen (PSA) 12/10/2023 Hyperlipidemia LDL goal < 100 05/16/2013 Lumbar degenerative disc disease 07/09/2012 Pappas's neuroma 05/16/2013 Sciatica Superficial spreading malignant melanoma of skin (HCC) 12/03/2014 Previous Surgical History PAST SURGICAL HISTORY Procedure Laterality Date EXC SKIN MALIG >4CM REMAINDR BODY 04/16/2017 Squamous cell carcinoma completely excised clean margins MELANOMA OF SKIN EXCISION SYN RPT Left 2014 back MELANOMA OF SKIN EXCISION SYN RPT 04/16/2017 right posterior ear lesion [facility] TONSILLECTOMY PRIMARY/SECONDARY Tonsillectomy Family History FAMILY HISTORY Problem Relation Age of Onset Heart Father valve Arthritis Mother knees,hips,lumbar spine Diabetes Mother other (electrical injury) Brother other (unknown) Brother Patient Allergies ALLERGIES Allergen Reactions Kidney Beans GI Upset Lisinopril Cough Tyler Seed Other: See Comments Adverse taste in mouth Current Medications Current Outpatient Medications on File Prior to Visit Medication Sig trospium (SANCTURA) 20 mg tablet Take 1 tablet by mouth once daily. tamsulosin (FLOMAX) 0.4 mg Take 2 capsules by mouth daily at bedtime. atorvastatin (LIPITOR) 20 mg tablet Take 1 tablet by mouth once daily. amLODIPine (NORVASC) 10 mg tablet Take 1 tablet by mouth once daily. cholecalciferol, Vitamin D3, (VITAMIN D3) 1,250 mcg (50,000 unit) cap capsule Take 1 capsule by mouth one time a week. take with food (Patient not taking: Reported on 03/24/2024) Valsartan-hydroCHLOROthiazide (DIOVAN HCT) 80-12.5 mg per tablet Take 1 tablet by mouth once daily. gabapentin (NEURONTIN) 300 mg capsule By mouth: 300mg qam, 600mg qHS (Patient taking differently: Patient takes 300 MG by mouth twice daily) albuterol HFA (VENTOLIN HFA) 90 mcg/actuation inhaler Inhale 2 Puffs as instructed every 4 hours as needed for wheezing/shortness of breath. metFORMIN (GLUCOPHAGE) 500 mg tablet Take 1 tablet by mouth two times a day with meals. ibuprofen (MOTRIN) 800 mg tablet Take 1 tablet by mouth every 8 hours as needed (FOR PAIN. TAKE WITH FOOD). (Patient not taking: Reported on 03/24/2024) blood sugar diagnostic (FREESTYLE LITE STRIPS) test strip Test blood sugar(s) one times daily. Dx: 250.02. Insulin: No (Patient not taking: Reported on 12/24/2023) Lancets (FREESTYLE LANCETS) lancets Test blood sugar(s) one times daily. Dx: 250.0 (more content not included)... [facility] 04-09-2024 Instructions Mali Modi PA-C - 04/09/2024 5:10 PM EDT Follow up in 6 months Increase physical and cognitive activity If you would like a referral to brain [facility] for further testing, let me know. documented in this encounter [facility] 04-09-2024 Note HNO ID: [id number] Author: MALI MODI PA-C Service: ? Author Type: Physician Director Of Surgery Type: Progress Notes Filed: 04/09/2024 17:20 Note Text: [facility] Name: Charline Sanchez Age: [age] year old Gender: male Primary Care Provider: Viktor Ferrera MD 04/09/2024 - General Neurology, Mali Modi PA-C ASSESSMENT ASSESSMENT/PLAN: 1. MCI (mild cognitive impairment) - ICD9: 331.83, ICD10: G31.84 (primary diagnosis) 2. Memory loss - ICD9: 780.93, ICD10: R41.3 Patient with progressive memory loss over the last few years, normal laboratory evaluation including B12 and folate. MRI of the brain with volumetric analysis was ordered and did show hippocampal volumes in the 18th percentile otherwise no significant atrophy or abnormalities intracranially. Neuropsychological testing was ordered as well and showed signs of mild cognitive impairment. Discussed these results at length with patient and family, discussed that there could be an neurodegenerative process like Alzheimer's disease or other dementia due to hippocampal atrophy. However, discussed that there is further testing that can be done for with a referral to brain health to get closer to her diagnosis. At this time, patient deferring this but would like to think about it at home. Does have history of B12 deficiency, B12 in September was at 435 and I discussed that a supplement could be beneficial if he is no longer supplementing at this time but did discuss he does not have a B12 deficiency based off this result. At this time, patient would like to see how he does with conservative therapy including increasing physical and cognitive activity and follow-up in 6 months to see how he does. Encouraged him to reach out with any new concerns or if he would like a referral to brain health at any time. Patient and family agree andunderstand. Mali Modi PA-C This is a 68 year old male followed for memory loss. Current medication treatment: none Indication for repeat cognitive testing: No Encounter Diagnosis ICD-10-CM 1. MCI (mild cognitive impairment) G31.84 2. Memory loss R41.3 Return in about 6 months (around 10/08/2024). Chart, labs,and relevant images reviewed. Chief Complaint:Patient presents with: Follow Up Chart Review: 12/24/[address] Pace ASSESSMENT/PLAN: 1. Memory loss - ICD9: 780.93, ICD10: R41.3 (primary diagnosis) 2. Cognitive decline - ICD9: 294.9, ICD10: R41.89 Patient with primary complaint of memory loss and cognitive decline that at this time is of uncertain etiology. Subjective symptoms > objective findings with MOCA falling within normal range. Metabolic workup completed by PCP and unremarkable. Patient denies other medical conditions that could contribute such as significant depression or sleep apnea (note PHQ is 0). He is not providing a history of suggest NPH triad. He is not reporting acute changes to suggest vascular dementia. Uncertain as to what is the cause of his mothers cognitive decline with no formal dx and thus, still need to consider a neurodegenerative process. To further evaluate will get MRI brain with volumetric evaluation to confirm no stroke or NPH and determine if a pattern of atrophy present to suggest a neurodegenerative process. Will also send for formal neurocognitive testing to better determine a cause of symptoms. At this time, given unremarkable MOCA score, and no major limitations in daily activities, would not recommend starting a medication such as Aricept or Namenda. Instead, will await findings of above testing to determine appropriate course of treatment or possible further workup. Pt agrees with plan that has been d/w pt in detail. Kenan Pace MD HPI: Last seen for memory loss on 12/24/23, onset 3+ years. MoCA . Ordered MRI brain, neuropsych testing. Hippocampal atrophy in the 18th percentile. Neuropsych testing significant for MCI. Patient with no significant change from previous. Presents today to review results including neuropsychological testing and MRI of the brain. No new concerns today. Review of Systems ACTIVE PROBLEM LIST Intervertebral lumbar disc disorder with myelopathy, lumbar region Htn (Hypertension) Venous Insufficiency Lumbar Degenerative Disc Disease Hyperlipidemia With Target Ldl Less Than 100 Superficial Spreading Malignant Melanoma of Skin (Hcc) Dm (Diabetes Mellitus), Type 2 With Neurological Complications (Hcc) Neoplasm of Uncertain Behavior of Skin Chronic Pain of Both Shoulders Neural Foraminal Stenosis of Cervical Spine Bph Associated With Nocturia PAST MEDICAL HISTORY Diagnosis Date BPH associated with nocturia Controlled type 2 diabetes mellitus without complication, without long-term current use of insulin ([facility]) 06/19/2014 06/19/14 HbA1c 8.1 DVT of lower limb, acute ([facility]) 07/13/2011 Elevated prostate specific antigen (PSA) 12/10/2023 Hype (more content not included)... [facility] 04-09-2024 History of Present illness Narrative Images from the original note were not included. [facility] Name: Charline Sanchez Age: [age] year old Gender: male Primary Care Provider: Viktor Ferrera MD 04/09/2024 - General Neurology, Mali Modi PA-C ASSESSMENT ASSESSMENT/PLAN: 1. MCI (mild cognitive impairment) - ICD9: 331.83, ICD10: G31.84 (primary diagnosis) 2. Memory loss - ICD9: 780.93, ICD10: R41.3 Patient with progressive memory loss over the last few years, normal laboratory evaluation including B12 and folate. MRI of the brain with volumetric analysis was ordered and did show hippocampal volumes in the 18th percentile otherwise no significant atrophy or abnormalities intracranially. Neuropsychological testing was ordered as well and showed signs of mild cognitive impairment. Discussed these results at length with patient and family, discussed that there could be an neurodegenerative process like Alzheimer's disease or other dementia due to hippocampal atrophy. However, discussed that there is further testing that can be done for with a referral to brain [facility] to get closer to her diagnosis. At this time, patient deferring this but would like to think about it at home. Does have history of B12 deficiency, B12 in September was at 435 and I discussed that a supplement could be beneficial if he is no longer supplementing at this time but did discuss he does not have a B12 deficiency based off this result. At this time, patient would like to see how he does with conservative therapy including increasing physical and cognitive activity and follow-up in 6 months to see how he does. Encouraged him to reach out with any new concerns or if he would like a referral to brain health at any time. Patient and family agree and understand. Mali Modi PA-C This is a 68 year old male followed for memory loss. Current medication treatment: none Indication for repeat cognitive testing: No Encounter Diagnosis ICD-10-CM 1. MCI (mild cognitive impairment) G31.84 2. Memory loss R41.3 Return in about 6 months (around 10/08/2024). Chart, labs,and relevant images reviewed. Chief Complaint:Patient presents with: Follow Up Chart Review: 12/24/[address] Pace ASSESSMENT/PLAN: 1. Memory loss - ICD9: 780.93, ICD10: R41.3 (primary diagnosis) 2. Cognitive decline - ICD9: 294.9, ICD10: R41.89 Patient with primary complaint of memory loss and cognitive decline that at this time is of uncertain etiology. Subjective symptoms > objective findings with MOCA falling within normal range. Metabolic workup completed by PCP and unremarkable. Patient denies other medical conditions that could contribute such as significant depression or sleep apnea (note PHQ is 0). He is not providing a history of suggest NPH triad. He is not reporting acute changes to suggest vascular dementia. Uncertain as to what is the cause of his mothers cognitive decline with no formal dx and thus, still need to consider a neurodegenerative process. To further evaluate will get MRI brain with volumetric evaluation to confirm no stroke or NPH and determine if a pattern of atrophy present to suggest a neurodegenerative process. Will also send for formal neurocognitive testing to better determine a cause of symptoms. At this time, given unremarkable MOCA score, and no major limitations in daily activities, would not recommend starting a medication such as Aricept or Namenda. Instead, will await findings of above testing to determine appropriate course of treatment or possible further workup. Pt agrees with plan that has been d/w pt in detail. Kenan Pace MD HPI: Last seen for memory loss on 12/24/23, onset 3+ years. MoCA . Ordered MRI brain, neuropsych testing. Hippocampal atrophy in the 18th percentile. Neuropsych testing significant for MCI. Patient with no significant change from previous. Presents today to review results including neuropsychological testing and MRI of the brain. No new concerns today. Review of Systems ACTIVE PROBLEM LIST Intervertebral lumbar disc disorder with myelopathy, lumbar region Htn (Hypertension) Venous Insufficiency Lumbar Degenerative Disc Disease Hyperlipidemia With Target Ldl Less Than 100 Superficial Spreading Malignant Melanoma of Skin (Hcc) Dm (Diabetes Mellitus), Type 2 With Neurological Complications (Hcc) Neoplasm of Uncertain Behavior of Skin Chronic Pain of Both Shoulders Neural Foraminal Stenosis of Cervical Spine Bph Associated With Nocturia PAST MEDICAL HISTORY Diagnosis Date BPH associated with nocturia Controlled type 2 diabetes mellitus without complication, without long-term current use of insulin ([facility]) 06/19/2014 06/19/14 HbA1c 8.1 DVT of lower limb, acute ([facility]) 07/13/2011 Elevated prostate specific antigen (PSA) 12/10/2023 Hyperlipidemia LDL goal < 100 05/16/2013 Lumbar degenerative disc disease 07/09/2012 Pappas's neuroma 05/16/2013 Sciatica Superficial spreading malignant melanoma of skin (HCC) 12/03/2014 Medications: Reviewed trospium (SANCTURA) 20 mg tablet Take 1 tablet by mouth once daily. tamsulosin (FLOMAX) 0.4 mg Take 2 capsules by mouth daily at bedtime. atorvastatin (LIPITOR) 20 mg tablet Take 1 tablet by mouth once daily. amLODIPine (NORVASC) 10 mg tablet Take 1 tablet by mouth once daily. Valsartan-hydroCHLOROthiazide (DIOVAN HCT) 80-12.5 mg per tablet Take 1 tablet by mouth once daily. gabapentin (NEURONTIN) 300 mg capsule By mouth: 300mg qam, 600mg qHS (Patient taking differently: Patient takes 300 MG by mouth twice daily) metFORMIN (GLUCOPHAGE) 500 mg tablet Take 1 tablet by mouth two times a day with meals. cholecalciferol, Vitamin D3, (VITAMIN D3) 1,250 mcg (50,000 unit) cap capsule Take 1 capsule by mouth one time a week. take with food (Patient not taking: Reported on 03/24/2024) albuterol HFA (VENTOLIN HFA) 90 mcg/actuation inhaler Inhale 2 Puffs as instructed every 4 hours as needed for wheezing/shortness of breath. ibuprofen (MOTRIN) 800 mg tablet Take 1 tablet by mouth every 8 hours as needed (FOR PAIN. TAKE WITH FOOD). (Patient not taking: Reported on 03/24/2024) blood sugar diagnostic (FREESTYLE LITE STRIPS) test strip Test blood sugar(s) one times daily. Dx: 250.02. Insulin: No (Patient not taking: Reported on 12/24/2023) Lancets (FREESTYLE LANCETS) lancets Test blood sugar(s) one times daily. Dx: 250.02. Insulin: No (Patient not taking: Reported on 03/24/2024) ALLERGIES Allergen Reactions Kidney Beans GI Upset Lisinopril Cough Tyler Seed Other: See Comments Adverse taste in mouth FAMILY HISTORY Problem Relation Age of Onset Heart Father valve Arthritis Mother knees,hips,lumbar spine Diabetes Mother other (electrical injury) Brother other (unknown) Brother PAST SURGICAL HISTORY Procedure Laterality Date EXC SKIN MALIG >4CM REMAINDR BODY 04/16/2017 Squamous cell carcinoma completely excised clean margins MELANOMA OF SKIN EXCISION SYN RPT Left 2015 back MELANOMA OF SKIN EXCISION SYN RPT 04/16/2017 right posterior ear lesion [facility] TONSILLECTOMY PRIMARY/SECONDARY <AGE 12 Tonsillectomy Social Hx: @Alcohol Use: Not on file Tobacco Use: Low Risk (04/09/2024) Patient History Smoking Tobacco Use: Never Smokeless Tobacco Use: Never Passive Exposure: Not on file 04/09/24 1632 BP: 123/74 Pulse: 77 Repeat MoCA deferred due to time Neurologic Exam Cognitive and Language: Alert and answered questions appropriately. Language was fluent. Cranial Nerves: Extraocular movements were full with no diplopia or nystagmus. Facial strength was symmetric. Motor: Moves all 4 extremities Coordination: Normal gait. Labs: Lab Results Component Value Date WBC 7.48 10/10/2023 HCT 48.8 10/10/2023 MCV 92.6 10/10/2023 PLT 241 10/10/2023 Lab Results Component Value Date HBA1C 7.1 04/07/2024 HBA1C 7.4 10/08/2023 HBA1C 7.2 03/28/2023 HBA1C 6.7 02/09/2021 HBA1C 6.5 06/29/2020 HBA1C 6.1 05/15/2019 Cholesterol, Total Date Value Ref Range Status 04/07/2024 154 <200 mg/dL Final Comment: <200 mg/dL, Desirable 200-239 mg/dL, Borderline high >239 mg/dL, High HDL Cholesterol Date Value Ref Range Status 04/07/2024 41 >39 mg/dL Final Comment: 40-59 mg/dL, Acceptable >59 mg/dL, High: Negative risk factor for coronary heart disease <40 mg/dL, Low: Positive risk factor for coronary heart disease LDL Cholesterol Date Value Ref Range Status 04/07/2024 94 <100 mg/dL Final Comment: <100 mg/dL, Optimal 100-129 mg/dL, Near optimal/above optimal 130-159 mg/dL, Borderline high 160-189 mg/dL, High >189 mg/dL, Very high Secondary prevention optimal LDL Cholesterol levels are recommended to be < 70 mg/dL Triglyceride Date Value Ref Range Status 04/07/2024 94 <150 mg/dL Final Comment: <150 mg/dL, Normal 150-199 mg/dL, Borderline high 200-499 mg/dL, High >499 mg/dL, Very high Lab Results Component Value Date TSH 1.820 10/10/2023 TSH 1.480 11/28/2011 Lab Results Component Value Date B12 458 10/10/2023 Results for orders placed or performed in visit on 04/07/24 COMPREHENSIVE METABOLIC PANEL Result Value Ref Range Protein, Total 7.1 6.3 - 8.0 g/dL Albumin 4.2 3.9 - 4.9 g/dL Calcium, Total 9.3 8.5 - 10.2 mg/dL Bilirubin, Total 1.1 0.2 - 1.3 mg/dL Alkaline Phosphatase 99 38 - 113 U/L AST 18 14 - 40 U/L ALT 22 10 - 54 U/L Glucose 130 (H) 74 - 99 mg/dL BUN 23 9 - 24 mg/dL Creatinine 0.96 0.73 - 1.22 mg/dL Sodium 141 136 - 144 mmol/L Potassium 3.7 3.7 - 5.1 mmol/L Chloride 100 98 - 107 mmol/L CO2 30 22 - 30 mmol/L Anion Gap 11 8 - 15 mmol/L Estimated Glomerular Filtration Rate 86 >=60 mL/min/1.73m LIPID PANEL BASIC Result Value Ref Range Cholesterol, Total 154 <200 mg/dL Triglyceride 94 <150 mg/dL HDL Cholesterol 41 >39 mg/dL Non HDL Cholesterol 113 <130 mg/dL Fasting Time 12 hrs VLDL Cholesterol 19 <30 mg/dL TC:HDL Ratio 3.76 <5.10 LDL Cholesterol 94 <100 mg/dL LDL:HDL Ratio 2.29 <2.54 HEMOGLOBIN A1C Result Value Ref Range Hemoglobin A1C 7.1 (H) 4.3 - 5.6 % Estimated Average Glucose 157 mg/dL PROSTATE SPECIFIC ANTIGEN, FREE Result Value Ref Range PSA 4.33 (H) <2.60 ng/mL PSA, Percent Free 28 % VITAMIN D 25 HYDROXY Result Value Ref Range Vitamin D 25 Hydroxy 41.3 31.0 - 80.0 ng/mL Radiology: MRI Head/Brain - Last 2 Impressions MRI BRAIN WO IVCON Exam End: 12/26/2023 3:32 PM (Final result) Impression: IMPRESSION: No acute intracranial process. Chronic changes and quantitative volumes as described. ... This note was dictated using [employer] speech recognition software and may contain some errors that were a result of the program not accurately transcribing what was dictated, despite efforts to make corrections. Note that unless urgent, test and MRI results will be discussed at next follow-up visit. PROMIS (Patient-Reported Outcomes Measurement Information System) is a set of person-centered measures that evaluates and monitors physical, social, and emotional health. It can be used with the general population and with individuals living with chronic conditions. PROMIS 10: PHYSICAL AND MENTAL HEALTH: 10/10/2023 PHQ-9 PHQ-2 Score 0 Medical Decision Making: Medical Decision Making Level: 1 - N/A I spent a total of 51 minutes on the date of the service which included preparing to see the patient, [id number] patient care, completing clinical documentation, obtaining and/or reviewing separately obtained history, performing a medically appropriate examination, counseling and educating the patient/family/caregiver, and ordering medications, tests, or procedures. documented in this encounter [facility] 04-08-2024 Telephone encounter Note Called patient. Verified name and date of . Patient notified of results- verbalizes understanding. Kristen Shelton LPN [facility] 04-08-2024 Miscellaneous Notes Called patient. Verified name and date of . Patient notified of results- verbalizes understanding. Kristen hSelton LPN ----- Message from Francisco Hightower APRN.CNP, DNP sent at 04/08/2024 4:25 PM EDT ----- Team - Please inform patient. PSA is stable and Free PSA looks good at 28%. I recommend to continue to monitor PSA level. Consider an MRI of prostate if we see changes in PSA or Free PSA. See you in May for your appt. Francisco Hightower DNP, CNP Department of Urology [facility] documented in this encounter [facility] 04-08-2024 Telephone encounter Note ----- Message from Francisco Hightower APRN.CNP, DNP sent at 04/08/2024 4:25 PM EDT ----- Team - Please inform patient. PSA is stable and Free PSA looks good at 28%. I recommend to continue to monitor PSA level. Consider an MRI of prostate if we see changes in PSA or Free PSA. See you in May for your appt. Francisco Hightower DNP, CNP Department of Urology [facility] 03-24-2024 Francisco Shahid APRN.CNP, DNP - 03/24/2024 11:12 AM EDT Follow up with Francisco Hightower APRN.CNP, DNP in 6 weeks Start a trial of Trospium Continue with one Flomax at bedtime Check PSA lab test - with our upcoming blood work. Avoid bladder irritants - coffee, tea, cola drinks, chocolate, alcohol, artificial sweeteners and cigarettes Lower urinary tract symptoms suggestive of benign prostatic enlargement. I discussed treatment options at length including r/b/a of each: To include Medication therapy and the role of further evaluation with UDS, TRUS and cysto if indicated. Discussed the role of pharmacotherapy, including risks, benefits and alternatives: Alpha-twila therapy [e.g. Tamsulosin] - potential risks of dizziness, asthenia, orthostasis, and retrograde ejaculation. Return to the clinic or seek care at [facility] for any worsening signs or symptoms: such as fevers, chills, worsening pain, gross blood in urine or worsening urinary symptoms. For severe symptoms seek care at the closest ER. Plan of care, medicaiton side effects and management reviewed with patient. Healthy Habits: Recommend regular physical activity, nutrition and healthy eating habits. Consume a variety of foods every day focusing on fruits, vegetables and lean meats). Eat foods low in fat, saturated fat and cholesterol. Eat a limited amount of salt and sodium. Drink adequate amounts of water and limit sugary drinks. Exercise portion control in meal selection. Establish a mindset of a wellness approach to health. Thank you for allowing me to provide your care today. I look forward to seeing you again and maintaining your health. Francisco Higthower APRN.NORMA DODD documented in this encounter [facility] 03-24-2024 History of Present illness Narrative [facility] PSA/PROSTATE EVALUATION HISTORY AND PHYSICAL EXAM PATIENT: Charline Sanchez (68 year old) 12/10/2023 PCP: Viktor Ferrera MD REFERRING Provider: Michelle Martin APRN.C* Consultation requested by Dr. Michelle Martin [id number] [facility] [address] for an opinion regarding Elevated PSA and BPH my final recommendations will be communicated back to the requesting physician by way of shared Medical record or letter via [place] mail. CC: Elevated PSA and BPH HPI: The patient is 68 year old and is referred for evaluation of elevated PSA and BPH. Past med hx: HTN, DM, Chronic LBP, HLD Last A1C: 7.4 Seen in 12/10/23 for urinary symptoms and PSA. Elevated PSA: PSA elevation was noted to be 4.0 ng/mL. Prior studies include PSA of 4.07 in 2022. Was to obtain Free PSA prior to appt, but did not. No prior Bx or MRI of prostate No fhx of cancers - Renal, bladder or prostate BPH: On Flomax. C/o NTF 3-4 times. Increased Flomax to 2 caps at bedtime. Had dizziness for the first week and stopped taking 2 caps. Reduced back to one cap. Still taking on Flomax cap. PRESENTING HISTORY: Hematuria: none Obstructive voiding symptoms: weak stream. Irritative voiding symptoms: frequency, urgency, and nocturia Urinary retention: no Urinary incontinence: no Urinary tract infection: no Patient Entered Questionnaires: INTERNATIONAL PROSTATE SYMPTOM SCORE (I-PSS) PREVIOUS TOTAL IPSS SCORE: 11 QOL = 5 1. Incomplete emptying 1 2. Frequency 1 3. Intermittency 1 4. Urgency 3 5. Weak stream 1 6. Straining 0 7. Nocturia 4 TOTAL IPSS SCORE 11 QOL = 4 PROMIS Global Health 09/02/2019 PROMIS Global Health Scale Physical Health Percentile 15 Mental Health Percentile 26 Percentiles provide an indication of how the patient's score ranks in relation to the general population. Higher percentile rankings indicate better function/quality of life. 50th percentile is the average of the general population and indicates half of respondents had a worse score. MEDICATIONS: Current Outpatient Medications Medication Sig tamsulosin (FLOMAX) 0.4 mg Take 2 capsules by mouth daily at bedtime. atorvastatin (LIPITOR) 20 mg tablet Take 1 tablet by mouth once daily. amLODIPine (NORVASC) 10 mg tablet Take 1 tablet by mouth once daily. Valsartan-hydroCHLOROthiazide (DIOVAN HCT) 80-12.5 mg per tablet Take 1 tablet by mouth once daily. gabapentin (NEURONTIN) 300 mg capsule By mouth: 300mg qam, 600mg qHS (Patient taking differently: Patient takes 300 MG by mouth twice daily) metFORMIN (GLUCOPHAGE) 500 mg tablet Take 1 tablet by mouth two times a day with meals. trospium (SANCTURA) 20 mg tablet Take 1 tablet by mouth once daily. cholecalciferol, Vitamin D3, (VITAMIN D3) 1,250 mcg (50,000 unit) cap capsule Take 1 capsule by mouth one time a week. take with food (Patient not taking: Reported on 03/24/2024) albuterol HFA (VENTOLIN HFA) 90 mcg/actuation inhaler Inhale 2 Puffs as instructed every 4 hours as needed for wheezing/shortness of breath. ibuprofen (MOTRIN) 800 mg tablet Take 1 tablet by mouth every 8 hours as needed (FOR PAIN. TAKE WITH FOOD). (Patient not taking: Reported on 03/24/2024) blood sugar diagnostic (FREESTYLE LITE STRIPS) test strip Test blood sugar(s) one times daily. Dx: 250.02. Insulin: No (Patient not taking: Reported on 12/24/2023) Lancets (FREESTYLE LANCETS) lancets Test blood sugar(s) one times daily. Dx: 250.02. Insulin: No (Patient not taking: Reported on 03/24/2024) No current facility-administered medications for this visit. HISTORY: PAST MEDICAL HISTORY Diagnosis Date BPH associated with nocturia Controlled type 2 diabetes mellitus without complication, without long-term current use of insulin (HCC) 06/19/2014 06/19/14 HbA1c 8.1 DVT of lower limb, acute (HCC) 07/13/2011 Elevated prostate specific antigen (PSA) 12/10/2023 Hyperlipidemia LDL goal < 100 05/16/2013 Lumbar degenerative disc disease 07/09/2012 Pappas's neuroma 05/16/2013 Sciatica Superficial spreading malignant melanoma of skin (HCC) 12/03/2014 PAST SURGICAL HISTORY Procedure Laterality Date EXC SKIN MALIG >4CM REMAINDR BODY 04/16/2017 Squamous cell carcinoma completely excised clean margins MELANOMA OF SKIN EXCISION SYN RPT Left 2014 back MELANOMA OF SKIN EXCISION SYN RPT 04/16/2017 right posterior ear lesion [facility] TONSILLECTOMY PRIMARY/SECONDARY <AGE 12 Tonsillectomy FAMILY HISTORY Problem Relation Age of Onset Heart Father valve Arthritis Mother knees,hips,lumbar spine Diabetes Mother other (electrical injury) Brother other (unknown) Brother Social History Tobacco Use Smoking status: Never Smokeless tobacco: Never Vaping Use Vaping status: Never Used Substance Use Topics Alcohol use: Not Currently Comment: occassionally Drug use: Never LABS: Latest Ref Rng 03/24/2024 GLUCOSE UA (POCT) Negative mg/dL Negative BILIRUBIN UA (POCT) Negative Negative KETONE UA (POCT) Negative mg/dL Negative SPECIFIC GRAVITY UA (POCT) 1.005 - 1.030 1.025 HEMOGLOBIN/BLOOD UA (POCT) Negative Negative PH UA (POCT) 4.5 - 8.0 6.5 PROTEIN UA (POCT) Negative mg/dL Negative UROBILINOGEN UA (POCT) Normal E.U./dL 0.2 NITRITE UA (POCT) Negative Negative LEUKOCYTES UA (POCT) Negative Negative COLOR UA (POCT) Yellow CLARITY UA (POCT) Clear Creatinine Creatinine Date Value Ref Range Status 10/08/2023 0.89 0.73 - 1.22 mg/dL Final 03/28/2023 0.92 0.73 - 1.22 mg/dL Final 09/12/2022 0.88 0.73 - 1.22 mg/dL Final 03/08/2022 0.89 0.73 - 1.22 mg/dL Final Latest Ref Rng 02/09/2021 10/08/2023 PSA <2.60 ng/mL 4.46 (H) 4.03 (H) PSA, Percent Free % 21 26 PSA PSA (ng/mL) Date Value 10/08/2023 4.03 03/08/2022 4.07 02/09/2021 4.46 PSA Screening (ng/mL) Date Value 03/28/2023 3.95 06/29/2020 4.67 OFFICE DATA: POST-VOID RESIDUAL BLADDER VOLUME: YES, 6 cc IMAGING None Review of Systems: PAIN ASSESSMENT: CURRENTLY HAVING NO PAIN GENERAL: No weight loss, malaise or fevers GI: No nausea, vomiting MUSCULOSKELETAL: Negative for generalized joint pain SKIN: Negative for rash HEMATOLOGY/LYMPHOLOGY: Negative for swollen nodes All other systems reviewed and noncontributory PHYSICAL EXAMINATION: VITALS: BP 128/80 (BP Site: Right Arm, BP Position: Sitting, BP Cuff Size: Large Adult) Pulse 68 Temp 36.4 C (97.6 F) (Temporal) Resp 14 Wt 93.4 kg (206 lb) SpO2 96% BMI 31.32 kg/m GENERAL: alert, no distress, normal affect RESPIRATORY: normal effort PELVIC FLOOR: good tone, no tenderness EXTREMITIES: normal SKIN: normal NEUROLOGIC: normal PCPT Risk Calculator: 5 % chance of high-grade prostate cancer, 13 % chance of low-grade cancer 82 % chance that the biopsy is negative for cancer. ASSESSMENT/PLAN: 1. BPH associated with nocturia - ICD9: 600.01, 788.43, ICD10: N40.1, R35.1 (primary diagnosis) Chronic - fair control. 68y/o male with elevated PSA, BPH and OAB symptoms. Reviewed BPH and elevated PSA with patient. Reviewed Flomax medication and its SE. Cont with 1 cap at bedtime. Will trial Trospium for OAB and urgency. PVR = 6ml UA - neg Plan: Cont with Flomax 1 cap at bedtime Repeat Free PSA in Dec Decrease fluid intake at bedtime. Avoid caffeine. Follow up with Francisco Hightower APRN.NORMA DODD in 3-6 months - POST VOID RESIDUAL - UA DIP, URINE (POC) - TROSPIUM 20 MG TABLET 2. Elevated PSA - ICD9: 790.93, ICD10: R97.20 MDM: - JASMYNE Normal/No FHX of prostate cancer - Discussed the implications/etiologies of elevated PSA. Discussed possible causes of elevated PSA: including BPH, recent ejaculation, normal aging, prostatitis (infection/inflammation), UTI, Urinary retention and prostate cancer. Talked about approaches which would include surveillance with PSA rechecks at regular intervals, MRI of prostate followed by biopsy, or standard TRUS Bx. -After discussing the pros and cons of each approach we decided to proceed with repeat free PSA. Plan: - Free PSA in Dec - Consider MRI of Prostate - follow up with Francisco Hightower APRN.NORMA DODD in 3 -6 months. - POST VOID RESIDUAL - UA DIP, URINE (POC) - TROSPIUM 20 MG TABLET 3. OAB (overactive bladder) - ICD9: 596.51, ICD10: N32.81 Plan as above. Trial of Trospium 20mg daily. follow up in 6 weeks. - POST VOID RESIDUAL - UA DIP, URINE (POC) - TROSPIUM 20 MG TABLET This note was copied from previous note and exam dated 12/10/23. Author is Francisco Hightower APRN.NORMA DODD note reviewed and changes have been made or updates noted in the copy & paste portion of an encounter. Francisco Hightower DNP, JU Department of Urology [facility] Verified name and date of . CC Post Void Residual HPI: Israel flores is here now for an appointment with Joelle Singh APRN, DNP Procedure: Explained procedure to patient and verbalizes understanding. Performed a PVR. Patient urinated and instructed to empty bladder as much as possible just prior to having PVR done using bladder ultrasound scanner. Results of scan: 6 mL The patient tolerated the procedure well. Plan: Appointment with Francisco. documented in this encounter [facility] 03-24-2024 Note HNO ID: [id number] Author: FRANCISCO HIGHTOWER APRN.NORMA DODD Service: ? Author Type: Nurse Practitioner Type: Progress Notes Filed: 03/24/2024 13:10 Note Text: [facility] PSA/PROSTATE EVALUATION HISTORY AND PHYSICAL EXAM PATIENT: Charline Sanchez (68 year old) 12/10/2023 PCP: Viktor Ferrera MD REFERRING Provider: Michelle Martin APRN.C* Consultation requested by Dr. Michelle Martin [id number] [facility] [address] for an opinion regarding Elevated PSA and BPH my final recommendations will be communicated back to the requesting physician by way of shared Medical record or letter via [place] mail. CC: Elevated PSA and BPH HPI: The patient is 68 year old and is referred for evaluation of elevated PSA and BPH. Past med hx: HTN, DM, Chronic LBP, HLD Last A1C: 7.4 Seen in 12/10/23 for urinary symptoms and PSA. Elevated PSA: PSA elevation was noted to be 4.0 ng/mL. Prior studies include PSA of 4.07 in 2022. Was to obtain Free PSA prior to appt, but did not. No prior Bx or MRI of prostate No fhx of cancers - Renal, bladder or prostate BPH: On Flomax. C/o NTF 3-4 times. Increased Flomax to 2 caps at bedtime. Had dizziness for the first week and stopped taking 2 caps. Reduced back to one cap. Still taking on Flomax cap. PRESENTING HISTORY: Hematuria: none Obstructive voiding symptoms: weak stream. Irritative voiding symptoms: frequency, urgency, and nocturia Urinary retention: no Urinary incontinence: no Urinary tract infection: no Patient Entered Questionnaires: INTERNATIONAL PROSTATE SYMPTOM SCORE (I-PSS) PREVIOUS TOTAL IPSS SCORE: 11 QOL = 5 1. Incomplete emptying 1 2. Frequency 1 3. Intermittency 1 4. Urgency 3 5. Weak stream 1 6. Straining 0 7. Nocturia 4 TOTAL IPSS SCORE 11 QOL = 4 PROMIS Global Health 09/02/2019 PROMIS Global Health Scale Physical Health Percentile 15 Mental Health Percentile 26 Percentiles provide an indication of how the patient's score ranks in relation to the general population. Higher percentile rankings indicate better function/quality of life. 50th percentile is the average of the general population and indicates half of respondents had a worse score. MEDICATIONS: Current Outpatient Medications Medication Sig tamsulosin (FLOMAX) 0.4 mg Take 2 capsules by mouth daily at bedtime. atorvastatin (LIPITOR) 20 mg tablet Take 1 tablet by mouth once daily. amLODIPine (NORVASC) 10 mg tablet Take 1 tablet by mouth once daily. Valsartan-hydroCHLOROthiazide (DIOVAN HCT) 80-12.5 mg per tablet Take 1 tablet by mouth once daily. gabapentin (NEURONTIN) 300 mg capsule By mouth: 300mg qam, 600mg qHS (Patient taking differently: Patient takes 300 MG by mouth twice daily) metFORMIN (GLUCOPHAGE) 500 mg tablet Take 1 tablet by mouth two times a day with meals. trospium (SANCTURA) 20 mg tablet Take 1 tablet by mouth once daily. cholecalciferol, Vitamin D3, (VITAMIN D3) 1,250 mcg (50,000 unit) cap capsule Take 1 capsule by mouth one time a week. take with food (Patient not taking: Reported on 03/24/2024) albuterol HFA (VENTOLIN HFA) 90 mcg/actuation inhaler Inhale 2 Puffs as instructed every 4 hours as needed for wheezing/shortness of breath. ibuprofen (MOTRIN) 800 mg tablet Take 1 tablet by mouth every 8 hours as needed (FOR PAIN. TAKE WITH FOOD). (Patient not taking: Reported on 03/24/2024) blood sugar diagnostic (FREESTYLE LITE STRIPS) test strip Test blood sugar(s) one times daily. Dx: 250.02. Insulin: No (Patient not taking: Reported on 12/24/2023) Lancets (FREESTYLE LANCETS) lancets Test blood sugar(s) one times daily. Dx: 250.02. Insulin: No (Patient not taking: Reported on 03/24/2024) No current facility-administered medications for this visit. HISTORY: PAST MEDICAL HISTORY Diagnosis Date BPH associated with nocturia Controlled type 2 diabetes mellitus without complication, without long-term current use of insulin (HCC) 06/19/2014 06/19/14 HbA1c 8.1 DVT of lower limb, acute ([facility]) 07/13/2011 Elevated prostate specific antigen (PSA) 12/10/2023 Hyperlipidemia LDL goal < 100 05/16/2013 Lumbar degenerative disc disease 07/09/2012 Pappas's neuroma 05/16/2013 Sciatica Superficial spreading malignant melanoma of skin (HCC) 12/03/2014 PAST SURGICAL HISTORY Procedure Laterality Date EXC SKIN MALIG >4CM REMAINDR BODY 04/16/2017 Squamous cell carcinoma completely excised clean margins MELANOMA OF SKIN EXCISION SYN RPT Left 2015 back MELANOMA OF SKIN EXCISION SYN RPT 04/16/2017 right posterior ear lesion [facility] TONSILLECTOMY PRIMARY/SECONDARY Tonsillectomy FAMILY HISTORY Problem Relation Age of Onset Heart Father valve Arthritis Mother knees,hips,lumbar spine Diabetes Mother other (electrical injury) Brother other (unknown) Brother Social History Tobacco Use Smoking status: Never Smokeless tobacco: Never Vaping Use Vaping status: Never (more content not included)... [facility] 03-24-2024 Note HNO ID: [id number] Author: KRISTEN SHELTON LPN Service: ? Author Type: LICENSED NURSE Type: Progress Notes Filed: 03/24/2024 13:10 Note Text: Verified name and date of . CC Post Void Residual HPI: Israel flores is here now for an appointment with Joelle Singh APRN, NORMA Procedure: Explained procedure to patient and verbalizes understanding. Performed a PVR. Patient urinated and instructed to empty bladder as much as possible just prior to having PVR done using bladder ultrasound scanner. Results of scan: 6 mL The patient tolerated the procedure well. Plan: Appointment with Francisco. [facility] 02-06-2024 Telephone encounter Note Mailed Neuropsych testing results per Dr. Bain. [facility] 02-06-2024 Miscellaneous Notes Mailed Neuropsych testing results per Dr. Bain. documented in this encounter [facility] 02-05-2024 Note HNO ID: [id number] Author: JESSE BAIN, PhD Service: ? Author Type: Psychologist Type: Progress Notes Filed: 02/05/2024 15:57 Note Text: Name: Charline Sanchez [facility] Date of Testin01/24/2024 Neuropsychology Test Summary This score sheet is provided for the convenience of other professionals. It accompanies a written report and should not be interpreted without reference to the report. Test scores are relative to age, gender, and education as available and appropriate. Scores are reported as follows: SCORES MEAN STANDARD DEVIATION Standard Scores 100 15 Scaled Scores 10 3 T Scores 50 10 Z Scores 0 1 Wide Range Achievement Test - 5th Edition (WRAT-5) Standard Score Grade Equivalent Word Reading 104 >12.9 Hamilton Intellectual Screening Test (RIST) Index Standard Score RIST Index 105 Subtest T Score Guess What 53 Odd-Item Out 53 Neuropsychological Assessment Battery (NAB) Attention Module Index Standard Score Attention Index 68 Subtest T Score Digits Forward 39 Digits Backward 45 Dots 37 Numbers AND Letters Part A Speed 31 Numbers AND Letters Part A Errors 57 Numbers AND Letters Part A Efficiency 31 Numbers AND Letters Part B Efficiency 38 Numbers AND Letters Part C Efficiency 37 Numbers AND Letters Part D Efficiency 27 Numbers AND Letters Part D Disruption 31 Driving Scenes 42 Neuropsychological Assessment Battery (NAB) Language Module Subtest T Score Naming 55 Neuropsychological Assessment Battery (NAB) Memory Module Index Standard Score Memory Index 77 Subtest T Score Percentile List Learning List A Immediate Recall 28 List Learning List B Immediate Recall 40 List Learning List A Short Delayed Recall 33 List Learning List A Long Delayed Recall 26 List Learning Percent Retention (50%) 4 List Learning List A Long Delayed Recognition 18 List Learning List A Recognition False Alarms 10 List Learning List A Recognition Discriminability Index 14 Story Learning Phrase Unit Immediate Recall 33 Story Learning Phrase Unit Delayed Recall 38 Story Learning Percent Retention (86%) 23 Daily Living Memory Immediate Recall 41 Daily Living Memory Delayed Recall 40 Daily Living Memory Percent Retention (80%) 24 Daily Living Memory Delayed Recognition 75 Shape Learning Immediate Recognition 53 Shape Learning Delayed Recognition 51 Shape Learning Percent Retention (120%) 75 Shape Learning Delayed Forced-Choice Recognition 75 Shape Learning Delayed Force-Choice Recognition False Alarms 12 Shape Learning Recognition Discriminability Index 75 Neuropsychological Assessment Battery (NAB) Spatial Module Subtest T Score Visual Discrimination 59 Figure Drawing Copy 73 Figure Drawing Immediate Recall 70 Verbal Fluency (Mitrushina) T Score Phonemic Fluency (F-A-S) 24 Semantic Fluency 54 [place]cliff Making Test (Mitrushina) T Score Trails A 49 Trails B 44 Modified [place] Card Sorting Test (M-WCST) Standard Score Executive Functions Composite 107 T Score Number of Categories Correct 56 Number of Perseverative Errors 53 Number of Total Errors 52 Percent of Perseverative Errors 53 Mood Rating Scales Total Score PHQ-9 10 FERNANDA-7 7 [facility] 02-05-2024 Note HNO ID: [id number] Author: JESSE BAIN, PhD Service: ? Author Type: Psychologist Type: Progress Notes Filed: 02/05/2024 15:56 Note Text: Neuropsychology Consultation Name: Charline Sanchez ?Davis? CCAG Dates of Service: 01/24/2024 (testing), 02/05/2024 (feedback) Referral: This is a 68-year-old, right-handed man referred for a neuropsychological evaluation by his neurologist, Dr. Kenan Pace, to further assess memory complaints and inform treatment planning. He was accompanied by his , Mrs. Holly Sanchez, who provided collateral history. This evaluation was conducted for treatment planning purposes only and is not valid for other purposes. Details of the patient's history are already known to the referral source and are only briefly summarized. Please see patient's medical records for more detailed information. Procedures: Available medical records were obtained and reviewed. Verbal informed consent was obtained prior to the clinical interview following a discussion of the nature of the evaluation, test procedures, risks and benefits, professional records, and confidentiality. The patient acknowledged understanding the purpose and/or need for the third alliance party () to be present and the circumstances and extent to which confidential information may be disclosed to the third alliance party. A clinical interview was then conducted with the patient and his , and the following tests were administered by a trained hydrate thickener operator: Wide Range Achievement Test-5 (WRAT-5: Word Reading); Luigi's Intellectual Screening Test (RIST); Neuropsychological Assessment Battery (NAB: Attention Module, Naming, Memory Module, Visual Discrimination, Figure Drawing Copy); Controlled Oral Word Association Test (FAS); Category Fluency (Animals); [place] Making Test, Parts A AND B; Modified [place] Card Sorting Test (M-WCST); Dot Counting Test (DCT); Sentence Repetition Test; Patient Health Questionnaire-9 (PHQ-9); Generalized Anxiety Disorder-7 item (FERNANDA-7). The testing was scored and interpreted. A follow up appointment was held to review the results, and this report was finalized. Background Information: Per medical records, the patient's history is significant for diabetes with bilateral neuropathy, hyperlipidemia, melanoma, degenerative disc disease, sciatica, Pappas's neuroma, DVT, and BPH. Briefly, he is completing workup with Dr. Pace for memory complaints. MoCA on 12/24/23 was 25/28. Neurologic exam was unremarkable. Recent TSH, B12 were normal. A1C-7.4 (10/08/23). Brain MRI on 12/26/23 showed mild chronic microvascular ischemic changes, whole brain volume at 40th percentile, and hippocampal volume at 18th percentile. There is a family history of dementia in his mother (diagnosed in her late 80s, resides in assisted living). There is no known history of stroke, seizure, or head injury with loss of consciousness. His current medications include albuterol, amlodipine, atorvastatin, gabapentin, metformin, tamsulosin, Diovan HCT, Vitamin D. Clinical Interview: Mr. Sanchez reported that cognitive changes started gradually within the last couple of years. He has always had difficulty with names but more recently he has been misplacing things and forgetting conversations. His has noticed these changes and said these issues are a little worse since onset. He is concerned about these changes due to his family history of dementia. He has not had a decline in daily functioning. He manages his own medications, appointments, and is driving without any significant difficulty. He sometimes forgets his evening medication dose, but this is not often. Per medical record, in a 2015 note he reported similarly forgetting his evening meds. 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 He said that his mood is ?usually okay? but he acknowledged some frustration related to his memory issues. When frustrated, he sometimes has thoughts of being better off , but he denied plan, method, intent, or a history of self-harm. He denied auditory or visual hallucinations. His prior psychiatric history is unremarkable. He drinks alcohol occasionally. He denied tobacco or recreational drug use, or a history of substance abuse. He reported adequate sleep. He gets up 3-4 times per night to use bathroom but is able to fall back asleep. Per , he snores but not loud and she has never witnessed any apneas. He takes a daily nap, which he attributed to his blood sugar. He reported reduced leg strength and chronic leg pain due to spinal stenosis; currently at 3/10 severity today. His early developmental history is unremarkable. He is a monolingual Gambian speaker. He has 16-years of formal education. He attended public schools. He (more content not included)... [facility] 02-05-2024 History of Present illness Narrative Images from the original note were not included. Neuropsychology Consultation Name: Charline Cannon [facility] Dates of Service: 01/24/2024 (testing), 02/05/2024 (feedback) Referral: This is a 68-year-old, right-handed man referred for a neuropsychological evaluation by his neurologist, Dr. Kenan aPce, to further assess memory complaints and inform treatment planning. He was accompanied by his , Mrs. Holly Sanchez, who provided collateral history. This evaluation was conducted for treatment planning purposes only and is not valid for other purposes. Details of the patient's history are already known to the referral source and are only briefly summarized. Please see patient's medical records for more detailed information. Procedures: Available medical records were obtained and reviewed. Verbal informed consent was obtained prior to the clinical interview following a discussion of the nature of the evaluation, test procedures, risks and benefits, professional records, and confidentiality. The patient acknowledged understanding the purpose and/or need for the third alliance party () to be present and the circumstances and extent to which confidential information may be disclosed to the third alliance party. A clinical interview was then conducted with the patient and his , and the following tests were administered by a trained hydrate thickener operator: Wide Range Achievement Test-5 (WRAT-5: Word Reading); Luigi's Intellectual Screening Test (RIST); Neuropsychological Assessment Battery (NAB: Attention Module, Naming, Memory Module, Visual Discrimination, Figure Drawing Copy); Controlled Oral Word Association Test (FAS); Category Fluency (Animals); Greycliff Making Test, Parts A & B; Modified [place] Card Sorting Test (M-WCST); Dot Counting Test (DCT); Sentence Repetition Test; Patient Health Questionnaire-9 (PHQ-9); Generalized Anxiety Disorder-7 item (FERNANDA-7). The testing was scored and interpreted. A follow up appointment was held to review the results, and this report was finalized. Background Information: Per medical records, the patient's history is significant for diabetes with bilateral neuropathy, hyperlipidemia, melanoma, degenerative disc disease, sciatica, Pappas's neuroma, DVT, and BPH. Briefly, he is completing workup with Dr. Pace for memory complaints. MoCA on 12/24/23 was 25/28. Neurologic exam was unremarkable. Recent TSH, B12 were normal. A1C-7.4 (10/08/23). Brain MRI on 12/26/23 showed mild chronic microvascular ischemic changes, whole brain volume at 40th percentile, and hippocampal volume at 18th percentile. There is a family history of dementia in his mother (diagnosed in her late 80s, resides in assisted living). There is no known history of stroke, seizure, or head injury with loss of consciousness. His current medications include albuterol, amlodipine, atorvastatin, gabapentin, metformin, tamsulosin, Diovan HCT, Vitamin D. Clinical Interview: Mr. Sanchez reported that cognitive changes started gradually within the last couple of years. He has always had difficulty with names but more recently he has been misplacing things and forgetting conversations. His has noticed these changes and said these issues are a little worse since onset. He is concerned about these changes due to his family history of dementia. He has not had a decline in daily functioning. He manages his own medications, appointments, and is driving without any significant difficulty. He sometimes forgets his evening medication dose, but this is not often. Per medical record, in a 2015 note he reported similarly forgetting his evening meds. 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 He said that his mood is usually okay but he acknowledged some frustration related to his memory issues. When frustrated, he sometimes has thoughts of being better off , but he denied plan, method, intent, or a history of self-harm. He denied auditory or visual hallucinations. His prior psychiatric history is unremarkable. He drinks alcohol occasionally. He denied tobacco or recreational drug use, or a history of substance abuse. He reported adequate sleep. He gets up 3-4 times per night to use bathroom but is able to fall back asleep. Per , he snores but not loud and she has never witnessed any apneas. He takes a daily nap, which he attributed to his blood sugar. He reported reduced leg strength and chronic leg pain due to spinal stenosis; currently at 3/10 severity today. His early developmental history is unremarkable. He is a monolingual Gambian speaker. He has 16-years of formal education. He attended public schools. He was an average student without learning or reading difficulties; however, he noted that he needed repetition of information to retain it. He received tutoring in college to help him with retention. Behavioral Observations: He presented to the evaluation appropriately dressed and groomed. He was pleasant and rapport was easily established. He was a reliable historian. No involuntary motor movements were observed. Gait was mildly antalgic. Speech was slow and deliberate, which appeared to be related to thinking deeply about his responses, but otherwise normal fluency, volume, and prosody. Comprehension was intact. No word finding difficulties or paraphasic errors observed conversationally. Affect was euthymic. Thought process was logical and linear. No evidence of hallucinations or delusional thinking. Eye contact and social comportment were appropriate. He wore glasses and reported adequate vision/hearing for testing. He was fully oriented x4; knew the current president and recent events. During testing he worked slowly and carefully. He requested the instructions to be repeated on nearly every task and then restated the instructions in his own words to ensure understanding. He required no encouragement to attempt a task or persist on a challenging task. Test Results: Validity: He scored in the valid range on three of three standalone and embedded performance validity tests. When viewed together with behavioral observations, the results are judged to be a valid and accurate representation of his cognitive functioning. A summary of individual test scores is attached as an addendum. An overview of the results is below but I will not discuss every single test or score. Base rates of low scores were used to guide test interpretation. Summary of Test Findings: Neuropsychological testing revealed his estimated premorbid abilities to be in the average range. Relative to these expectations, the results were significant for mild deficits in complex attention and verbal memory encoding/retrieval, as well as 1 low score on a test executive functioning (letter fluency). Specifically, on tests of attention there were multiple low scores on tests of sustained, selective, and divided attention. The pattern on these tasks suggested that he completed them slowly but with a high degree of accuracy, possibly reflecting a cautious response style to some degree. Memory testing showed multiple low scores on tests of unstructured and structured information (List Learning, Story Learning). The aggregate learning ratio was slightly below normal expectations. The pattern on List Learning showed reduced learning across trials (3,4,5 words), weak short-delayed recall (4 words), poor long-delayed recall (2 words), and some benefit from recognition cues. In contrast, he performed broadly within normal expectations on a verbal memory test for daily living information. Tests of executive functions showed exceptionally low performance on test of letter fluency but were otherwise intact without notable intrusion or perseverative errors. Tests of basic attention, receptive/expressive language, visual memory, and visuospatial abilities were intact. In addition to the cognitive test findings, he endorsed mild symptoms of depression and anxiety on mood screening measures. An inspection of items showed the strongest endorsement of items related to feeling down, feeling bad about himself, trouble concentrating, excessive worry, and feeling irritable. Clinical Impressions: The neuropsychological test findings were significant for mild deficits in complex attention and verbal memory encoding/retrieval, as well as 1 low score on a test of executive functioning (letter fluency). The results were otherwise normal with intact performance across tests of basic attention, receptive/expressive language, visual memory, visuospatial abilities, and other tests of executive functions. Based on their report, it sounds like he has a mild developmental weakness in attention and memory, and I suspect that to at least some degree the results reflect this weakness and his overly cautious response style. However, this would not fully account for the test findings, which is likely a modest decline from his baseline. He has not had a decline in daily functioning and therefore the test results are best characterized as mild cognitive impairment. The overall test pattern suggests dysfunction in frontal-subcortical circuitry. Possible contributing factors include cerebrovascular changes, diabetes, medication effects (gabapentin), depression/anxiety, chronic pain, and an underlying dementia process. The current findings did not show an amnestic presentation, which is classically seen in AD; however, it is reasonable to consider AD biomarker testing given his family history of dementia and other risk factors. Recent MRI showed mildly disproportionate hippocampal atrophy, which could suggest an early AD process, although reduced hippocampal volume can also be seen in older adults with diabetes. Diagnostic Impressions: Mild Cognitive Impairment (Amnestic, Multiple Domain) Depression with Anxiety Recommendations: Consider AD biomarker testing. Consider treatment for depression/anxiety (medication, psychotherapy, or combination treatment). Continue to work with providers to adequately control diabetes and other vascular risk factors such as hypertension and hyperlipidemia. Repeat neuropsychological testing in 2 to 3 years (or sooner if a clear decline is noticed). Cognitive compensatory strategies and behaviors shown to be beneficial for brain health (shared at feedback). Follow Up: The test findings, clinical impressions, and recommendations were discussed with and Mrs. Sanchez and all questions were answered. They were encouraged to contact me if they have any questions in the future. Thank you for the opportunity to participate in the care of Mr. Sanchez. Please contact me if you have any questions about the evaluation ([phone]). Jesse Bain, PhD Clinical Neuropsychologist Services associated with this evaluation: Neurobehavioral status exam (interview by neuropsychologist): 1 hour Time testing and scoring (by computer engineering technician): 3.5 hours Time completing additional tests, analyzing, interpreting and incorporating other available medical information, clinical data review, report writing, and interactive feedback with patient and/or family/caregiver (by neuropsychologist): 4 hours documented in this encounter [facility] 01-24-2024 History of Present illness Narrative Charline Sanchez, [id number] has completed the following tests in full on today's date: 01/24/24 WRAT-5 Word Reading RIST NAB Attention Module NAB Naming NAB Memory Module NAB Visual Discrimination, Figure Drawing Copy & Recall FAS/Animals TMT A&B M-WCST PHQ-9 FERNANDA-7 DCT SRT Associated attestation - Jesse Bain, PhD - 02/01/2024 4:37 PM EDT LICENSED PSYCHOLOGIST NOTE OF PERSONAL INVOLVEMENT IN CARE: I have completed a clinical interview with the patient and selected the test battery to be completed by the hydrate thickener operator. I have reviewed the hydrate thickener operator s documentation and verified the tests listed in the note were administered. Any additions or changes are noted in bold/italics. Signature: Jesse Bain, Date: 02/01/2024 Time: 4:36 PM documented in this encounter [facility] 01-24-2024 History of Present illness Narrative [facility] Department of Psychiatry & Behavioral Sciences Neuropsychology Consultation Name: Charline Sanchez Date of : 1955 Age: [age] year old Date of Evaluation: January 24, 2024 Mr. Sanchez was seen today for a clinical interview and neuropsychological testing. Return appointment to discuss the results of the evaluation currently scheduled for 02/05/2024 at 3:00 pm. Full report to follow. Jesse Bain, Clinical Neuropsychologist documented in this encounter [facility] 01-17-2024 Telephone encounter Note Placed reminder call for testing with Dr. Bain. JASPREET [facility] 01-17-2024 Miscellaneous Notes Placed reminder call for testing with Dr. Tapscott. VOGEL documented in this encounter [facility] 12-27-2023 Telephone encounter Note Called the patient to schedule Neuropsychological Testing. LVM. Internal. First attempt. [facility] 12-27-2023 Miscellaneous Notes Called the patient to schedule Neuropsychological Testing. LVM. Internal. First attempt. documented in this encounter [facility] 12-26-2023 History of Present illness Narrative Radiology Service Progress Note PATIENT NAME: Charline Sanchez DATE OF SERVICE: December 26, 2023 TIME: 3:07 PM PATIENT IDENTITY VERIFICATION COMPLETED USING TWO (2) IDENTIFIERS: Name and Date of confirmed by patient verbally. FALL SCREENING: Has the patient had 2 falls in the last year or 1 fall with injury or currently using an Ambulatory Assistive Device (Walker, Cane, Wheelchair, Crutches, etc.)? No PATIENT GENDER DATA: Male PATIENT RELEVANT IMPLANT DATA REVIEWED: Yes PATIENT PRESENTS WITH AN IMPLANTABLE OR ATTACHED DEPUTY TREASURER: No RADIOLOGY DEPARTMENT: MR; Exam(s) Completed: Head: Routine Brain PERIPHERAL IV DATA: Not applicable SIGNED BY: RT Malachi(R) December 26, 2023 3:07 PM documented in this encounter [facility] 12-24-2023 History of Present illness Narrative NEW PATIENT (CONSULT) HISTORY AND PHYSICAL EXAM PRIMARY CARE PHYSICIAN: Viktor Ferrera MD REASON FOR CONSULT: Memory problems REFERRING PHYSICIAN: Viktor Ferrera MD CHIEF COMPLAINT: Im losing my memory Consultation requested by Viktor Ferrera MD for an opinion regarding chief complaint of Patient presents with: New Patient: PCP referral reported issues with long, short term memory x3 yrs. and my final recommendations will be communicated back to the requesting physician by way of shared medical record or letter via [place] mail. HISTORY OF PRESENT ILLNESS: Charline Sanchez is a 68 year old male, BMI 31.05 kg/m2 with a PMH significant for that noted below. States he has had memory changes for approximately the last 3+ years. Had a fall with head trauma at that time but no formal diagnosis (admitted to the hospital but cannot tell me the name of the hospital). TSH Date Value Ref Range Status 10/10/2023 1.820 0.270 - 4.200 mIU/L Final Vitamin B12 Date Value Ref Range Status 10/10/2023 458 232 - 1,245 pg/mL Final Mother is 95 years old with awful memory but no formal diagnosis. Pt reports not being able to remember peoples names despite knowing the car they drive, where they live, but cannot come up with the first name. When asked about other symptoms, patient is aware of misplacing things and not being able to find them. No getting lost driving or other issues. No comments by family regarding being forgetful of conversations. More so loses thought of what they are talking about mid conversation. No major events such as leaving stove top on or water running. Pt thinks patter of symptoms are gradually getting worse and not abrupt. Regarding sleep, no KESHAV symptoms endorsed by pt including no snoring, witnessed apneas. Dry mouth in AM but relates to his starting urinary meds at night (started after starting meds). Rarely has symptoms of insomnia - racing thoughts due to a stressful events. Besides mother, no other family members with memory issues or neuro disease. When asked specifically about depression or anxiety states I have my dower moments and I guess there have been times of anxiety too -- but states not a regularly issue, but perhaps getting worse due to the lack of memory. Does not endorse symptoms suggestive of NPH (no ataxia or bladder incontinence (unless stress related)). States has problems with new things at work until he repeats it over and over, and then will have no struggles. MODIFIED MOCA: Immediate recall: 10/04, 11/03 Number repeat: 08/03 Sentence repeat: 08/03 Serial 7s: [id number] 09/01 Abstract: 08/03 Namin/3 Orientation: , Saturday 11/04 Delayed recall: 10/04 (11/03 with cue) A tap: 1/1 Cube copy: Clock draw: 09/01 TOTAL: Hemoglobin A1C (%) Date Value 10/08/2023 7.4 02/09/2021 6.7 Denies regular ETOH use. REVIEW OF SYSTEMS GENERAL:No weight loss, malaise or fevers. HEENT:Negative for frequent or significant headaches, No changes in hearing or vision, no nose bleeds or other nasal problems NECK:Negative for lumps, goiter, pain and significant neck swelling RESPIRATORY: Negative for cough, wheezing or shortness of breath. CARDIOVASCULAR: Negative for chest pain, leg swelling or palpitations. GASTROINTESTINAL: Negative for abdominal discomfort, blood in stools or black stools or change in bowel habits GENITOURINARY: No history of dysuria, frequency or incontinence MUSCULOSKELETAL: Negative for joint pain or swelling, back pain or muscle pain. NEUROLOGIC:Negative for focal numbness or weakness, headaches and dizziness or syncope, vision changes, speech/language changes, changes in gait or falls -- besides those complaints as above in HPI. SKIN:Negative for lesions, rash, and itching. PSYCHIATRIC: See HPI. HEMATOLOGIC/LYMPHATIC/IMMUNOLOGIC :Negative for prolonged bleeding, bruising easily or swollen nodes. ENDOCRINE: Negative for cold or heat intolerance, polyuria, polydipsia and goiter. The remainder of the ROS was reviewed and is negative. LAB/IMAGING: Reviewed and include: WBC (k/uL) Date Value 10/10/2023 7.48 RBC (m/uL) Date Value 10/10/2023 5.27 Hemoglobin (g/dL) Date Value 10/10/2023 16.6 Hematocrit (%) Date Value 10/10/2023 48.8 MCV (fL) Date Value 10/10/2023 92.6 MCH (pg) Date Value 10/10/2023 31.5 MCHC (g/dL) Date Value 10/10/2023 34.0 RDW-CV (%) Date Value 10/10/2023 12.8 Platelet Count (k/uL) Date Value 10/10/2023 241 MPV (fL) Date Value 10/10/2023 10.6 Glucose (mg/dL) Date Value 10/08/2023 136 (H) BUN (mg/dL) Date Value 10/08/2023 16 Creatinine (mg/dL) Date Value 10/08/2023 0.89 Sodium (mmol/L) Date Value 10/08/2023 141 Potassium (mmol/L) Date Value 10/08/2023 3.8 Chloride (mmol/L) Date Value 10/08/2023 101 CO2 (mmol/L) Date Value 10/08/2023 28 Protein, Total (g/dL) Date Value 10/08/2023 6.9 Albumin (g/dL) Date Value 10/08/2023 3.9 Calcium, Total (mg/dL) Date Value 10/08/2023 9.1 Alkaline Phosphatase (U/L) Date Value 10/08/2023 94 Bilirubin, Total (mg/dL) Date Value 10/08/2023 1.3 AST (U/L) Date Value 10/08/2023 22 ALT (U/L) Date Value 10/08/2023 20 MEDICATIONS: tamsulosin (FLOMAX) 0.4 mg Take 2 capsules by mouth daily at bedtime. atorvastatin (LIPITOR) 20 mg tablet Take 1 tablet by mouth once daily. amLODIPine (NORVASC) 10 mg tablet Take 1 tablet by mouth once daily. cholecalciferol, Vitamin D3, (VITAMIN D3) 1,250 mcg (50,000 unit) cap capsule Take 1 capsule by mouth one time a week. take with food Valsartan-hydroCHLOROthiazide (DIOVAN HCT) 80-12.5 mg per tablet Take 1 tablet by mouth once daily. gabapentin (NEURONTIN) 300 mg capsule By mouth: 300mg qam, 600mg qHS (Patient taking differently: Patient takes 300 MG by mouth twice daily) metFORMIN (GLUCOPHAGE) 500 mg tablet Take 1 tablet by mouth two times a day with meals. ibuprofen (MOTRIN) 800 mg tablet Take 1 tablet by mouth every 8 hours as needed (FOR PAIN. TAKE WITH FOOD). Lancets (FREESTYLE LANCETS) lancets Test blood sugar(s) one times daily. Dx: 250.02. Insulin: No albuterol HFA (VENTOLIN HFA) 90 mcg/actuation inhaler Inhale 2 Puffs as instructed every 4 hours as needed for wheezing/shortness of breath. blood sugar diagnostic (FREESTYLE LITE STRIPS) test strip Test blood sugar(s) one times daily. Dx: 250.02. Insulin: No (Patient not taking: Reported on 12/24/2023) HISTORIES PAST MEDICAL HISTORY Diagnosis Date BPH associated with nocturia Controlled type 2 diabetes mellitus without complication, without long-term current use of insulin ([facility]) 06/19/2014 06/19/14 HbA1c 8.1 DVT of lower limb, acute ([facility]) 07/13/2011 Hyperlipidemia LDL goal < 100 05/16/2013 Lumbar degenerative disc disease 07/09/2012 Pappas's neuroma 05/16/2013 Sciatica Superficial spreading malignant melanoma of skin ([facility]) 12/03/2014 FAMILY HISTORY Problem Relation Age of Onset Heart Father valve Arthritis Mother knees,hips,lumbar spine Diabetes Mother other (electrical injury) Brother other (unknown) Brother SOCIAL HISTORY Social History Tobacco Use Smoking status: Never Smokeless tobacco: Never Vaping Use Vaping Use: Never used Substance Use Topics Alcohol use: Not Currently Comment: occassionally Drug use: Never PHYSICAL EXAMINATION BP 132/76 Pulse 72 Resp 16 Wt 92.6 kg (204 lb 3.2 oz) SpO2 95% BMI 31.05 kg/m GENERAL EXAM: General appearance: NAD, pleasant. HEENT: NC/AT, nasal congestion absent, no oral lesions, membranes moist. NECK: ROM nml. Lungs: CTA bilaterally. CV: RRR nl S1, S2. No carotid bruits. Extr: No cyanosis, clubbing, but trace pedal edema. No evidence of fasciculations. Extremity pulses palpable and normal. Skin: Cool to touch. NEUROLOGICAL EXAM: General: Awake, alert, oriented x3 (person,place,time), fluent, no dysarthria; comprehension, naming, repetition intact. MOCA above. CN: PERRL, fundi with no evidence of papilledema, EOMI and without nystagmus, VFF to confrontation, facial sensation and strength are normal and symmetric, hearing is intact to finger rub bilaterally, palate and tongue movements are intact and symmetric. SCM and trapezius strength normal. Motor: Normal tone, bulk and strength (5/5) bilaterally (throughout extremities x4). Reflexes: 1/4 and symmetric, plantar stimulation is flexor. Coordination: FNF, TRUNG, HTS intact. No tremors. Sensation: LT, vibration intact throughout. No evidence of neglect. Gait: Stable with normal stride and arm swing. Romberg normal. Assessment and Plan: ASSESSMENT/PLAN: 1. Memory loss - ICD9: 780.93, ICD10: R41.3 (primary diagnosis) 2. Cognitive decline - ICD9: 294.9, ICD10: R41.89 Patient with primary complaint of memory loss and cognitive decline that at this time is of uncertain etiology. Subjective symptoms > objective findings with MOCA falling within normal range. Metabolic workup completed by PCP and unremarkable. Patient denies other medical conditions that could contribute such as significant depression or sleep apnea (note PHQ is 0). He is not providing a history of suggest NPH triad. He is not reporting acute changes to suggest vascular dementia. Uncertain as to what is the cause of his mothers cognitive decline with no formal dx and thus, still need to consider a neurodegenerative process. To further evaluate will get MRI brain with volumetric evaluation to confirm no stroke or NPH and determine if a pattern of atrophy present to suggest a neurodegenerative process. Will also send for formal neurocognitive testing to better determine a cause of symptoms. At this time, given unremarkable MOCA score, and no major limitations in daily activities, would not recommend starting a medication such as Aricept or Namenda. Instead, will await findings of above testing to determine appropriate course of treatment or possible further workup. Pt agrees with plan that has been d/w pt in detail. Kenan Pace MD I spent a total of 45+ minutes on the date of the service which included preparing to see the patient, [id number] patient care, completing clinical documentation, obtaining and/or reviewing separately obtained history, performing a medically appropriate examination, counseling and educating the patient/family/caregiver, ordering medications, tests, or procedures, and communicating results to the patient/family/caregiver. documented in this encounter [facility] 12-10-2023 Instructions Francisco Hightower APRN.CNP, DNP - 12/10/2023 11:51 AM EDT Follow up with Francisco Hightower APRN.NORMA DODD in 3 months Cont Flomax 2 caps at bedtime Repeat Free PSA prior to next appt. Decrease fluid intake at bedtime. Lower urinary tract symptoms suggestive of benign prostatic enlargement. I discussed treatment options at length including r/b/a of each: To include Medication therapy and the role of further evaluation with UDS, TRUS and cysto if indicated. Discussed the role of pharmacotherapy, including risks, benefits and alternatives: Alpha-twila therapy [e.g. Tamsulosin] - potential risks of dizziness, asthenia, orthostasis, and retrograde ejaculation. 5-Alpha Reductase Inhibitors [e.g. Finasteride] - potential risks of painful breast enlargement, diminished libido or erectile dysfunction, ejaculatory dysfunction, gynecomastia. Phosphodiesterase-5 inhibitors, such as Cialis, are commonly used for erectile dysfunction, but when used daily, they also can relax the smooth muscle of the prostate and overactivity of the bladder muscle. Common side effects of Cialis include: dyspepsia and headache. Other side effects include: upper respiratory tract infection, back pain, myalgia, cough, and nasal congestion Return to the clinic or seek care at [facility] for any worsening signs or symptoms: such as fevers, chills, worsening pain, gross blood in urine or worsening urinary symptoms. For severe symptoms seek care at the closest ER. Plan of care, medicaiton side effects and management reviewed with patient. Healthy Habits: Recommend regular physical activity, nutrition and healthy eating habits. Consume a variety of foods every day focusing on fruits, vegetables and lean meats). Eat foods low in fat, saturated fat and cholesterol. Eat a limited amount of salt and sodium. Drink adequate amounts of water and limit sugary drinks. Exercise portion control in meal selection. Establish a mindset of a wellness approach to health. Thank you for allowing me to provide your care today. I look forward to seeing you again and maintaining your health. Francisco Hightower APRN.NORMA DODD documented in this encounter [facility] 12-10-2023 History of Present illness Narrative [facility] PSA/PROSTATE EVALUATION HISTORY AND PHYSICAL EXAM PATIENT: Charline Sanchez (68 year old) 12/10/2023 PCP: Viktor Ferrera MD REFERRING Provider: Michelle Martin APRN.C* Consultation requested by Dr. Michelle Martin [address] [facility] [address] for an opinion regarding Elevated PSA and BPH my final recommendations will be communicated back to the requesting physician by way of shared Medical record or letter via [place] mail. CC: Elevated PSA and BPH HPI: The patient is 68 year old and is referred for evaluation of elevated PSA and BPH. Past med hx: HTN, DM, Chronic LBP, HLD Last A1C: 7.4 Elevated PSA: PSA elevation was noted to be 4.0 ng/mL. Prior studies include PSA of 4.07 in 2022 No prior Bx or MRI of prostate No fhx of cancers - Renal, bladder or prostate BPH: On Flomax. C/o NTF 3-4 times. Feels Flomax only provides mild improvement in symptoms. No SE from med. PRESENTING HISTORY: Hematuria: none Obstructive voiding symptoms: weak stream. Irritative voiding symptoms: frequency, urgency, and nocturia Urinary retention: no Urinary incontinence: no Urinary tract infection: no Patient Entered Questionnaires: INTERNATIONAL PROSTATE SYMPTOM SCORE (I-PSS) 1)INCOMPLETE EMPTYING Over the past month, how often have you had a sensation of not emptying your bladder completely after you finished urinating? SCORE: 1- Less than 1 time in 5 2)FREQUENCY Over the past month, how often have you had to urinate again less than two hours after you finished urinating? SCORE: 3- About half the time 3)INTERMITTENCY Over the past month, how often have you found you stopped and started again several times when you urinated? SCORE: 2- less than half the time 4)URGENCY Over the past month, how often have you found it difficult to postpone urination? SCORE: 4- More than half the time 5)WEAK STREAM Over the past month, how often have you had a weak stream? SCORE: 1- Less than 1 time in 5 6)STRAINING Over the past month, how often have you had to push or strain to begin urination SCORE: 0- Not at all 7)NOCTURIA Over the past month, how many times did you most typically get up to urinate from the time you went to bed at night until the time you get up in the morning? SCORE:4 TOTAL I-PSS SCORE: 11 QUALITY OF LIFE DUE TO URINARY SYMPTOMS If you were to spend the rest of yur life with your urinary condition just the way it is now, how would you feel about that? 5- Unhappy PROMIS Global Health 09/02/2019 PROMIS Global Health Scale Physical Health Percentile 15 Mental Health Percentile 26 Percentiles provide an indication of how the patient's score ranks in relation to the general population. Higher percentile rankings indicate better function/quality of life. 50th percentile is the average of the general population and indicates half of respondents had a worse score. MEDICATIONS: Current Outpatient Medications Medication Sig atorvastatin (LIPITOR) 20 mg tablet Take 1 tablet by mouth once daily. amLODIPine (NORVASC) 10 mg tablet Take 1 tablet by mouth once daily. cholecalciferol, Vitamin D3, (VITAMIN D3) 1,250 mcg (50,000 unit) cap capsule Take 1 capsule by mouth one time a week. take with food Valsartan-hydroCHLOROthiazide (DIOVAN HCT) 80-12.5 mg per tablet Take 1 tablet by mouth once daily. gabapentin (NEURONTIN) 300 mg capsule By mouth: 300mg qam, 600mg qHS (Patient taking differently: Patient takes 300 MG by mouth twice daily) metFORMIN (GLUCOPHAGE) 500 mg tablet Take 1 tablet by mouth two times a day with meals. ibuprofen (MOTRIN) 800 mg tablet Take 1 tablet by mouth every 8 hours as needed (FOR PAIN. TAKE WITH FOOD). blood sugar diagnostic (FREESTYLE LITE STRIPS) test strip Test blood sugar(s) one times daily. Dx: 250.02. Insulin: No Lancets (FREESTYLE LANCETS) lancets Test blood sugar(s) one times daily. Dx: 250.02. Insulin: No tamsulosin (FLOMAX) 0.4 mg Take 2 capsules by mouth daily at bedtime. albuterol HFA (VENTOLIN HFA) 90 mcg/actuation inhaler Inhale 2 Puffs as instructed every 4 hours as needed for wheezing/shortness of breath. No current facility-administered medications for this visit. HISTORY: PAST MEDICAL HISTORY Diagnosis Date BPH associated with nocturia Controlled type 2 diabetes mellitus without complication, without long-term current use of insulin ([facility]) 06/19/2014 06/19/14 HbA1c 8.1 DVT of lower limb, acute ([facility]) 07/13/2011 Hyperlipidemia LDL goal < 100 05/16/2013 Lumbar degenerative disc disease 07/09/2012 Pappas's neuroma 05/16/2013 Sciatica Superficial spreading malignant melanoma of skin ([facility]) 12/03/2014 PAST SURGICAL HISTORY Procedure Laterality Date EXC SKIN MALIG >4CM REMAINDR BODY 04/16/2017 Squamous cell carcinoma completely excised clean margins MELANOMA OF SKIN EXCISION SYN RPT Left 2015 back MELANOMA OF SKIN EXCISION SYN RPT 04/16/2017 right posterior ear lesion [facility] TONSILLECTOMY PRIMARY/SECONDARY <AGE 12 Tonsillectomy FAMILY HISTORY Problem Relation Age of Onset Heart Father valve Arthritis Mother knees,hips,lumbar spine Diabetes Mother other (electrical injury) Brother other (unknown) Brother Social History Tobacco Use Smoking status: Never Smokeless tobacco: Never Vaping Use Vaping Use: Never used Substance Use Topics Alcohol use: Not Currently Comment: occassionally Drug use: Never LABS: Creatinine Creatinine Date Value Ref Range Status 10/08/2023 0.89 0.73 - 1.22 mg/dL Final 03/28/2023 0.92 0.73 - 1.22 mg/dL Final 09/12/2022 0.88 0.73 - 1.22 mg/dL Final 03/08/2022 0.89 0.73 - 1.22 mg/dL Final Latest Ref Rng 02/09/2021 10/08/2023 PSA <2.60 ng/mL 4.46 (H) 4.03 (H) PSA, Percent Free % 21 26 Legend: (H) High PSA PSA (ng/mL) Date Value 10/08/2023 4.03 03/08/2022 4.07 02/09/2021 4.46 PSA Screening (ng/mL) Date Value 03/28/2023 3.95 06/29/2020 4.67 OFFICE DATA: POST-VOID RESIDUAL BLADDER VOLUME: YES, 0 cc IMAGING None Review of Systems: PAIN ASSESSMENT: CURRENTLY HAVING NO PAIN GENERAL: No weight loss, malaise or fevers GI: No nausea, vomiting MUSCULOSKELETAL: Negative for generalized joint pain SKIN: Negative for rash HEMATOLOGY/LYMPHOLOGY: Negative for swollen nodes All other systems reviewed and noncontributory PHYSICAL EXAMINATION: VITALS: BP 122/82 (BP Site: Right Arm, BP Position: Sitting, BP Cuff Size: Regular Adult) Pulse 78 Temp 36.6 C (97.8 F) (Temporal) Resp 14 Ht 172.7 cm (5' 8) Wt 93 kg (205 lb) SpO2 95% BMI 31.17 kg/m GENERAL: alert, no distress, normal affect RESPIRATORY: normal effort RECTAL: approximately 45 g prostate, no nodules PELVIC FLOOR: good tone, no tenderness EXTREMITIES: normal SKIN: normal NEUROLOGIC: normal PCPT Risk Calculator: 5 % chance of high-grade prostate cancer, 13 % chance of low-grade cancer 82 % chance that the biopsy is negative for cancer. ASSESSMENT/PLAN: 1. BPH associated with nocturia - ICD9: 600.01, 788.43, ICD10: N40.1, R35.1 (primary diagnosis) Chronic - fair control. MDM: Reviewed BPH and elevated PSA with patient. Reviewed what Flomax medication is for and its SE. Increase Flomax to 2 cap daily. PVR = 0ml Plan: Flomax 2 caps at bedtime Repeat Free PSA prior to next appt. Decrease fluid intake at bedtime. Avoid caffeine. Follow up with Francisco Hightower APRN.CNP, DNP in 3 months - UA DIP, URINE (POC) - POST VOID RESIDUAL - TAMSULOSIN 0.4 MG CAPSULE 2. Elevated PSA - ICD9: 790.93, ICD10: R97.20 MDM: - JASMYNE Normal/No FHX of prostate cancer - Discussed the implications/etiologies of elevated PSA. Discussed possible causes of elevated PSA: including BPH, recent ejaculation, normal aging, prostatitis (infection/inflammation), UTI, Urinary retention and prostate cancer. Talked about approaches which would include surveillance with PSA rechecks at regular intervals, MRI of prostate followed by biopsy, or standard TRUS Bx. -After discussing the pros and cons of each approach we decided to proceed with repeat free PSA. Plan: - check Free PSA in 3 months - Consider MRI of Prostate - follow up with Francisco Hightower APRN.CNP, DNP in 3 months. - UA DIP, URINE (POC) - POST VOID RESIDUAL - PROSTATE SPECIFIC ANTIGEN, FREE Francisco Hightower DNP, JU Department of Urology [facility] Verified name and date of . CC Post Void Residual HPI: Israel flores is here now for an appointment with Joelle Singh APRN, NORMA Procedure: Explained procedure to patient and verbalizes understanding. Performed a PVR. Patient attempted to urinate but was not able to void at this time. Results of scan: 0 mL The patient tolerated the procedure well. Plan: Appointment with Francisco. documented in this encounter [facility] 12-05-2023 Telephone encounter Note The following approved medication requests have been transmitted electronically. Requested Prescriptions Pending Prescriptions Disp Refills atorvastatin (LIPITOR) 20 mg tablet 90 tablet 3 Sig: Take 1 tablet by mouth once daily. amLODIPine (NORVASC) 10 mg tablet 90 tablet 3 Sig: Take 1 tablet by mouth once daily. Michelle Martin APRN.JU [facility] 12-05-2023 Miscellaneous Notes The following approved medication requests have been transmitted electronically. Requested Prescriptions Pending Prescriptions Disp Refills atorvastatin (LIPITOR) 20 mg tablet 90 tablet 3 Sig: Take 1 tablet by mouth once daily. amLODIPine (NORVASC) 10 mg tablet 90 tablet 3 Sig: Take 1 tablet by mouth once daily. Michelle Martin APRN.JU [facility] calling, requested refill on amlodipine and atorvastatin. States that they know there should have been refills based off of our records but they cannot see that in there system and they do not have it. Asking if new prescriptions can be sent. Orders pended. Please advise. documented in this encounter [facility] 12-05-2023 Telephone encounter Note [facility] calling, requested refill on amlodipine and atorvastatin. States that they know there should have been refills based off of our records but they cannot see that in there system and they do not have it. Asking if new prescriptions can be sent. Orders pended. Please advise. [facility] 11-27-2023 History of Present illness Narrative POPULATION HEALTH NAVIGATION OUTREACH Action/[place] Discuss/Due for: Follow Up, Colorectal Cancer Screening, Dilated Retinal Exam, Hgb a1c previously ordered Return in about 6 months (around 04/10/2024). HCC Score: .[id number] Outcome: 1st attempt - Spoke to patient Scheduled Follow Up Patient reports going outside for Dilated Retinal Exam with Dr. Michel Nielsen Patient declined Colorectal Cancer Screening, will discuss with Viktor Ferrera MD Patient will have fasting labs prior to appointment, prefers walk in Reason for Outreach Care Gap/HCC or Scheduling Wellness Visits Care Gaps due: Follow-up Appointment Colorectal Cancer Screening Diabetic Eye Exam HBA1C Patient Contacted: Spoke to patient/parent/or legal guardian Patient identified by name and : Yes Care Gap/HCC/Scheduling Wellness actions taken: Patient scheduled/pended labs: Follow-up Appointment 12/10/2023 in [facility] with FRANCISCO HIGHTOWER - BPH associated with nocturia [N40.1, R35.1], Elevated PSA [R97.20] 12/24/2023 in [facility] with KENAN PACE JR - memory changes 04/10/2024 in [facility] with VIKTOR FERRERA - FOLLOW UP/ HCC GAP CLOSURE , Return in about 6 months (around 04/10/2024). HCC related Navigation Signature: Sonia Wilson MA November 27, 2023 1:12 PM documented in this encounter [facility] 10-12-2023 Miscellaneous Notes The following approved medication requests have been transmitted electronically. Requested Prescriptions Signed Prescriptions Disp Refills cholecalciferol, Vitamin D3, (VITAMIN D3) 1,250 mcg (50,000 unit) cap capsule 12 capsule 3 Sig: Take 1 capsule by mouth one time a week. take with food Authorizing Provider: MICHELLE MRATIN APRN.CNP Patient returned call and went over results, notes from Michelle Martin WELFARE MANAGER with understanding. Patient uses [facility] [place] pharmacy and asking for 90 day rx. Pending rx needs completed. TC to pt. LM to call office, ask for triage nurse to get results. Carolann Moore LPN Can you please call the patient and let him know that I reviewed his lab results. Thyroid, B12, and folate were all normal. Vitamin D was low however. I would recommend taking a once weekly supplement that I can send to the pharmacy and recheck labs in 3 months. If he is agreeable please verify pharmacy. Please let me know if he has any questions. Thank you. Michelle Martin APRN.JU documented in this encounter [facility] 10-10-2023 Instructions Michelle Martin APRN.CNP - 10/10/2023 9:17 AM EDT Get labs completed Schedule consult with Neurology, Dr. Katelynn Horvath Office Start back on Flomax at bedtime. Consult has been placed for Urology to discuss urination and elevated PSA (Immanuel Hightower CNP). Work on eating a low carb diet, increase lean protein, veggies, and get some form of exercise. Get repeat fasting labs in 6 months prior to next visit Complete stool testing Follow up in 6 months. documented in this encounter [facility] 10-10-2023 History of Present illness Narrative This is a 68 year old male who presents today with: Patient presents with: 6 Month Exam HISTORY OF PRESENT ILLNESS: Charline Sanchez is a 68 year old male. Patient presents with: 6 Month Exam 6 month follow up Mother has Alzheimer's. Refers that he has been having difficulty remembering names. Has been forgetful where he last placed objects. Denies leaving stove on or becoming confused while driving. No difficulty completing tasks. Urinary: Getting up 3-4 times at night to urinate. Was prescribed Flomax 0.4 mg last year but unsure if he ever started it. At last OV told to start back on medication. Forgot to restart medication. History of elevated PSA. HTN/edema: Taking Diovan HCTZ 80/12.5 mg and Norvasc 10 mg daily. Not currently checking blood pressure at home. Denies chest pain, palpitations, dizziness, or edema. DM: Reports overall feeling well. Medication side effects: No. Home sugar checks: Does not check sugars at home Hypoglycemic spells: No. Watching diet: Yes. Trying to watch diet. Unexpected weight loss: No. Polyuria, polydipsia: Yes. Vision Changes: No. Foot lesions or numbness or pain: Yes. Numbness A1c went up from 7.2 to 7.4, taking metformin 500 mg twice daily. Does have bilateral neuropathy in his feet. Taking gabapentin 300 mg in the morning and 600 mg in the afternoon as needed. Following with Dr. Nielsen for eye exams. Pain: Back/neck, following with pain management, Dr. Parsons. Has had injections in the past. Last injection was helpful for neck pain. Symptoms are well controlled Lipids: Taking Lipitor 20 mg daily. Watching diet and trying to stay active. Colonoscopy: Due for testing, refers he has stool kit from insurance to completed. Vaccines: Denies wanting at this time. PAST MEDICAL HISTORY: PAST MEDICAL HISTORY Diagnosis Date Controlled type 2 diabetes mellitus without complication, without long-term current use of insulin ([facility]) 06/19/2014 06/19/14 HbA1c 8.1 DVT of lower limb, acute (HCC) 07/13/2011 Hyperlipidemia LDL goal < 100 05/16/2013 Lumbar degenerative disc disease 07/09/2012 Pappas's neuroma 05/16/2013 Sciatica Superficial spreading malignant melanoma of skin (HCC) 12/03/2014 PAST SURGICAL HISTORY Procedure Laterality Date EXC SKIN MALIG >4CM REMAINDR BODY 04/16/2017 Squamous cell carcinoma completely excised clean margins MELANOMA OF SKIN EXCISION SYN RPT Left 2015 back MELANOMA OF SKIN EXCISION SYN RPT 04/16/2017 right posterior ear lesion [facility] TONSILLECTOMY PRIMARY/SECONDARY <AGE 12 Tonsillectomy ALLERGIES Kidney Beans, Lisinopril, and Tyler Seed MEDICATIONS Current Outpatient Medications Medication Sig albuterol HFA (VENTOLIN HFA) 90 mcg/actuation inhaler Inhale 2 Puffs as instructed every 4 hours as needed for wheezing/shortness of breath. tamsulosin (FLOMAX) 0.4 mg Take 1 capsule by mouth daily at bedtime. metFORMIN (GLUCOPHAGE) 500 mg tablet Take 1 tablet by mouth two times a day with meals. amLODIPine (NORVASC) 10 mg tablet Take 1 tablet by mouth once daily. Valsartan-hydroCHLOROthiazide (DIOVAN HCT) 80-12.5 mg per tablet Take 1 tablet by mouth once daily. atorvastatin (LIPITOR) 20 mg tablet Take 1 tablet by mouth once daily. gabapentin (NEURONTIN) 300 mg capsule By mouth: 300mg qam, 600mg qHS ibuprofen (MOTRIN) 800 mg tablet Take 1 tablet by mouth every 8 hours as needed (FOR PAIN. TAKE WITH FOOD). blood sugar diagnostic (FREESTYLE LITE STRIPS) test strip Test blood sugar(s) one times daily. Dx: 250.02. Insulin: No Lancets (FREESTYLE LANCETS) lancets Test blood sugar(s) one times daily. Dx: 250.02. Insulin: No No current facility-administered medications for this visit. FAMILY HISTORY Problem Relation Age of Onset Heart Father valve Arthritis Mother knees,hips,lumbar spine Diabetes Mother other (electrical injury) Brother other (unknown) Brother Social History Tobacco Use Smoking status: Never Smokeless tobacco: Never Substance Use Topics Alcohol use: Yes Comment: occassionally Drug use: No REVIEW OF SYSTEMS GENERAL: No weight loss, malaise or fevers/chills HEENT: Negative for frequent or significant headaches, No changes in hearing or vision. NECK: Negative for lumps, goiter, pain and significant neck swelling RESPIRATORY: Negative for cough, hemoptysis, wheezing, dyspnea or shortness of breath CARDIOVASCULAR: Negative for chest pain, leg swelling, orthopnea, or palpitations GI: No nausea, vomiting, or diarrhea/constipation. No hematochezia/melena. No heartburn or reflux symptoms. : No history of dysuria, frequency or incontinence MUSCULOSKELETAL: Negative for joint pain or swelling. SKIN: Negative for lesions, rash, and itching ENDOCRINE: Negative for cold or heat intolerance, polyuria, polydipsia and goiter NEURO: No history of headaches, syncope, paralysis, seizures or tremors MOOD: Negative for depression, anxiety, or suicidal ideation. EXAM: BP 122/70 Pulse 85 Resp 16 Wt 93 kg (205 lb) SpO2 95% BMI 31.17 kg/m PHYSICAL EXAM: General Appearance: Well appearing, alert, in no acute distress, well-hydrated, well nourished. Skin: Skin color, texture, turgor normal, no suspicious rashes or lesions. Head: Normocephalic, no masses, lesions, tenderness or abnormalities. Eyes: Anicteric sclera. Extraocular movements are intact. Lungs: Lungs clear to auscultation. No wheezing, rhonchi, rales. Heart: RRR without murmur, gallop, or rubs. No ectopy. Extremities: No deformities, edema, skin discoloration, clubbing or cyanosis. Good capillary refill. Peripheral Pulses: Normal, Capillary refill <2secs, strong peripheral pulses, Pulses palpable. Neurologic: Gait normal. Sensation grossly intact. Latest Ref Rng 10/08/2023 Protein, Total 6.3 - 8.0 g/dL 6.9 Albumin 3.9 - 4.9 g/dL 3.9 Calcium 8.5 - 10.2 mg/dL 9.1 Bilirubin, Total 0.2 - 1.3 mg/dL 1.3 Alkaline Phosphatase 38 - 113 U/L 94 AST 14 - 40 U/L 22 ALT 10 - 54 U/L 20 Glucose 74 - 99 mg/dL 136 (H) BUN 9 - 24 mg/dL 16 Creatinine 0.73 - 1.22 mg/dL 0.89 Sodium 136 - 144 mmol/L 141 Potassium 3.7 - 5.1 mmol/L 3.8 Chloride 97 - 105 mmol/L 101 CO2 22 - 30 mmol/L 28 Anion Gap 9 - 18 mmol/L 12 eGFR >=60 mL/min/1.73m 93 Cholesterol, Total <200 mg/dL 166 Triglyceride <150 mg/dL 90 HDL Cholesterol >39 mg/dL 44 Non HDL Cholesterol <130 mg/dL 122 Fasting Time hrs 13 VLDL Cholesterol <30 mg/dL 18 TC:HDL Ratio <5.10 3.77 LDL Cholesterol <100 mg/dL 104 (H) LDL:HDL Ratio <2.54 2.36 PSA <2.60 ng/mL 4.03 (H) PSA, Percent Free % 26 Hemoglobin A1C 4.3 - 5.6 % 7.4 (H) Estimated Average Glucose mg/dL 166 Legend: (H) High ASSESSMENT/PLAN: 1. BPH associated with nocturia - ICD9: 600.01, 788.43, ICD10: N40.1, R35.1 (primary diagnosis) - Complete Free PSA due to increase in PSA - Recommend consult with Urology due to BPH and Elevated PSA. - CONSULT TO UROLOGY - PROSTATE SPECIFIC ANTIGEN, FREE 2. Elevated PSA - ICD9: 790.93, ICD10: R97.20 - Same plan as #1. 3. Memory changes - ICD9: 780.93, ICD10: R41.3 - Get labs completed - Consult placed for Neurology - COMPLETE BLOOD COUNT - VITAMIN B12 - FOLATE, SERUM - VITAMIN D 25 HYDROXY - CONSULT TO NEUROLOGY - THYROID STIMULATING HORMONE - T4 FREE/FREE THYROXINE 4. DM (diabetes mellitus), type 2 with neurological complications (HCC) - ICD9: 250.60, ICD10: E11.49 - Worsening control - Continue current medications - Counseled on healthy diet and regular exercise - Discussed need for and benefit of weight loss. BMI 31.17 kg/(m^2) - Denied wanting to add on additional medication at this time. - Repeat labs in 6 months prior to next visit. - GABAPENTIN 300 MG CAPSULE - HEMOGLOBIN A1C 5. Essential hypertension - ICD9: 401.9, ICD10: I10 - Controlled - Continue current medications - Recommend home blood pressure monitoring, to bring results to next visit - Encouraged sodium restriction, DASH or Mediterranean diet - Recommend regular aerobic exercise - Discussed need for and benefit of weight loss. BMI 31.17 kg/(m^2) - AMLODIPINE 10 MG TABLET - VALSARTAN 80 MG-HYDROCHLOROTHIAZIDE 12.5 MG TABLET - COMPREHENSIVE METABOLIC PANEL 6. Radiculopathy of lumbar region - ICD9: 724.4, ICD10: M54.16 - Stable 7. Radiculitis, cervical - ICD9: 723.4, ICD10: M54.12 - Stable 8. Hyperlipidemia with target LDL less than 100 - ICD9: 272.4, ICD10: E78.5 - Controlled - Continue current medications - Get repeat labs in 6 months - Counseled on healthy diet and regular exercise - Discussed need for and benefit of weight loss. BMI 31.17 kg/(m^2) - ATORVASTATIN 20 MG TABLET - LIPID PANEL BASIC Follow up in 6 months or sooner as needed. Discussed treatment plan and patient voices understanding. Patient's questions answered appropriately. Medications and potential side effects were discussed and patient voices understanding. Michelle Martin APRN.CNP This note was partially generated using [employer] voice recognition system. Note was reviewed for accuracy. There may be minor misspellings or grammar miscues with [employer] voice recognition. documented in this encounter [facility] 09-03-2023 Instructions Michelle Martin APRN.CNP - 09/03/2023 9:32 AM EST Start Zpack, take with food. Start Prednisone 20 mg daily in the morning. May use albuterol inhaler as needed for shortness of breath or wheezing. Recommend Mucinex for chest congestion and cough Stay well hydrated and get plenty of rest. documented in this encounter [facility] 09-03-2023 History of Present illness Narrative This is a 68 year old male who presents today with: Patient presents with: Acute Visit: Still coughing and wheezing HISTORY OF PRESENT ILLNESS: Charline Sanchez is a 68 year old male. Patient presents with: Acute Visit: Still coughing and wheezing Here in the office for cough and wheezing. Started over a week ago. Refers that he was near a draft all day and started to get sick. Has been taking OTC cold medication as needed. Cough was dry but now feels like there is mucus stuck in the chest. Losing voice. Was seen in [facility] on 08/31/2023, diagnosed with URI, tested negative for COVID, flu, or RSV. Given prescription for Tessalon Perles, which were not helpful. No fever or chills. PAST MEDICAL HISTORY: PAST MEDICAL HISTORY Diagnosis Date Controlled type 2 diabetes mellitus without complication, without long-term current use of insulin (HCC) 06/19/2014 06/19/14 HbA1c 8.1 DVT of lower limb, acute (HCC) 07/13/2011 Hyperlipidemia LDL goal < 100 05/16/2013 Lumbar degenerative disc disease 07/09/2012 Pappas's neuroma 05/16/2013 Sciatica Superficial spreading malignant melanoma of skin (HCC) 12/03/2014 PAST SURGICAL HISTORY Procedure Laterality Date EXC SKIN MALIG >4CM REMAINDR BODY 04/16/2017 Squamous cell carcinoma completely excised clean margins MELANOMA OF SKIN EXCISION SYN RPT Left 2014 back MELANOMA OF SKIN EXCISION SYN RPT 04/16/2017 right posterior ear lesion [facility] TONSILLECTOMY PRIMARY/SECONDARY <AGE 11 Tonsillectomy ALLERGIES Kidney Beans, Lisinopril, and Tyler Seed MEDICATIONS Current Outpatient Medications Medication Sig benzonatate (TESSALON PERLE) 100 mg capsule Take 1 capsule by mouth every 8 hours as needed for cough for up to 15 days. tamsulosin (FLOMAX) 0.4 mg Take 1 capsule by mouth daily at bedtime. metFORMIN (GLUCOPHAGE) 500 mg tablet Take 1 tablet by mouth two times a day with meals. amLODIPine (NORVASC) 10 mg tablet Take 1 tablet by mouth once daily. Valsartan-hydroCHLOROthiazide (DIOVAN HCT) 80-12.5 mg per tablet Take 1 tablet by mouth once daily. atorvastatin (LIPITOR) 20 mg tablet Take 1 tablet by mouth once daily. gabapentin (NEURONTIN) 300 mg capsule By mouth: 300mg qam, 600mg qHS ibuprofen (MOTRIN) 800 mg tablet Take 1 tablet by mouth every 8 hours as needed (FOR PAIN. TAKE WITH FOOD). blood sugar diagnostic (FREESTYLE LITE STRIPS) test strip Test blood sugar(s) one times daily. Dx: 250.02. Insulin: No Lancets (FREESTYLE LANCETS) lancets Test blood sugar(s) one times daily. Dx: 250.02. Insulin: No No current facility-administered medications for this visit. FAMILY HISTORY Problem Relation Age of Onset Heart Father valve Arthritis Mother knees,hips,lumbar spine Diabetes Mother other (electrical injury) Brother other (unknown) Brother Social History Tobacco Use Smoking status: Never Smokeless tobacco: Never Substance Use Topics Alcohol use: Yes Comment: occassionally Drug use: No REVIEW OF SYSTEMS GENERAL: No weight loss, malaise or fevers/chills HEENT: Negative for frequent or significant headaches, No changes in hearing or vision. + Loss of voice NECK: Negative for lumps, goiter, pain and significant neck swelling RESPIRATORY: + Cough/Wheezing CARDIOVASCULAR: Negative for chest pain, leg swelling, orthopnea, or palpitations GI: No nausea, vomiting, or diarrhea/constipation. No hematochezia/melena. No heartburn or reflux symptoms. : No history of dysuria, frequency or incontinence MUSCULOSKELETAL: Negative for joint pain or swelling. SKIN: Negative for lesions, rash, and itching ENDOCRINE: Negative for cold or heat intolerance, polyuria, polydipsia and goiter NEURO: No history of headaches, syncope, paralysis, seizures or tremors MOOD: Negative for depression, anxiety, or suicidal ideation. EXAM: BP 124/76 Pulse 76 Resp 16 Wt 94.3 kg (208 lb) SpO2 93% BMI 31.63 kg/m PHYSICAL EXAM: General Appearance: Ill appearing, alert, in no acute distress, well-hydrated, well nourished. Skin: Skin color, texture, turgor normal, no suspicious rashes or lesions. Head: Normocephalic, no masses, lesions, tenderness or abnormalities. Eyes: Anicteric sclera. Extraocular movements are intact. Ears: External ears normal, canals clear, TMs pearly soto. Nose/Sinuses: Positive findings: mucosa erythematous and swollen, clear rhinorrhea. Oropharynx: Positive findings: mild oropharyngeal erythema. Neck: Supple, no adenopathy; thyroid symmetric, normal size, no bruits. Lungs: Cough Mil wheezing noted in upper lobes. Heart: RRR without murmur, gallop, or rubs. No ectopy. Extremities: No deformities, edema, skin discoloration, clubbing or cyanosis. Good capillary refill. Peripheral Pulses: Normal, Capillary refill <2secs, strong peripheral pulses, Pulses palpable. Neurologic: Gait normal. Sensation grossly intact. ASSESSMENT/PLAN: 1. Bronchitis - ICD9: 490, ICD10: J40 - Start Zpack - Start prednisone burst 20 mg daily for 5 days - May use albuterol inhaler prn for wheezing and SOB. - May use Mucinex as needed. - AZITHROMYCIN 250 MG TABLET - PREDNISONE 20 MG TABLET - ALBUTEROL SULFATE HFA 90 MCG/ACTUATION AEROSOL INHALER Follow-up if no improvement. Discussed treatment plan and patient voices understanding. Patient's questions answered appropriately. Medications and potential side effects were discussed and patient voices understanding. Michelle Martin APRN.JU This note was partially generated using [employer] voice recognition system. Note was reviewed for accuracy. There may be minor misspellings or grammar miscues with [employer] voice recognition. documented in this encounter [facility] 09-01-2023 Miscellaneous Notes Patient notified of results, verbalized understanding of instructions given. Idalia Bustillos MA ----- Message from Kenan Munoz MD sent at 08/31/2023 6:18 PM EST ----- Negative for COVID, influenza, and RSV. documented in this encounter [facility] 08-31-2023 History of Present illness Narrative Patient presents with: Cough: Chest congestion, ST, PEREZ x1 week HPI: Feeling sick for 1 week. Concerned he was exposed to temperature fluctuation and draft. Positive symptoms: Cough, Sore throat, Nasal Congestion, Headache, some Sinus pressure, Body Aches, Malaise, Fatigue, soft stool Negative symptoms: Fever, Vomiting, OTC: Mucinex DM, sleeps sitting up PAST MEDICAL HISTORY Diagnosis Date Controlled type 2 diabetes mellitus without complication, without long-term current use of insulin ([facility]) 06/19/2014 06/19/14 HbA1c 8.1 DVT of lower limb, acute (HCC) 07/13/2011 Hyperlipidemia LDL goal < 100 05/16/2013 Lumbar degenerative disc disease 07/09/2012 Pappas's neuroma 05/16/2013 Sciatica Superficial spreading malignant melanoma of skin (HCC) 12/03/2014 MEDICATIONS: Current Outpatient Medications Medication Sig tamsulosin (FLOMAX) 0.4 mg Take 1 capsule by mouth daily at bedtime. metFORMIN (GLUCOPHAGE) 500 mg tablet Take 1 tablet by mouth two times a day with meals. amLODIPine (NORVASC) 10 mg tablet Take 1 tablet by mouth once daily. Valsartan-hydroCHLOROthiazide (DIOVAN HCT) 80-12.5 mg per tablet Take 1 tablet by mouth once daily. atorvastatin (LIPITOR) 20 mg tablet Take 1 tablet by mouth once daily. gabapentin (NEURONTIN) 300 mg capsule By mouth: 300mg qam, 600mg qHS ibuprofen (MOTRIN) 800 mg tablet Take 1 tablet by mouth every 8 hours as needed (FOR PAIN. TAKE WITH FOOD). blood sugar diagnostic (FREESTYLE LITE STRIPS) test strip Test blood sugar(s) one times daily. Dx: 250.02. Insulin: No Lancets (FREESTYLE LANCETS) lancets Test blood sugar(s) one times daily. Dx: 250.02. Insulin: No No current facility-administered medications for this visit. ALLERGIES: ALLERGIES Allergen Reactions Kidney Beans GI Upset Lisinopril Cough Tyler Seed Other: See Comments Adverse taste in mouth VITALS: BP 157/92 Pulse 80 Temp 37.1 C (98.7 F) Resp 20 Wt 94 kg (207 lb 3.2 oz) SpO2 96% BMI 31.50 kg/m PHYSICAL EXAM: GEN: mildly ill appearing HEENT: PERRL, EOMI, conjunctiva clear Ears: canals clear. TMs without erythema, bulge, or effusion Sinuses: non-tender frontal sinus, non-tender maxillary sinuses Throat: moist mucous membranes, mild erythema, no exudate Neck: supple, no thyromegaly, no lymphadenopathy HEART: regular rate and rhythm, no murmurs LUNGS: clear to auscultation, no wheezes or crackles, no increased WOB ASSESSMENT/PLAN: 1. URI, acute - ICD9: 465.9, ICD10: J06.9 (primary diagnosis) 2. Acute cough - ICD9: 786.2, ICD10: R05.1 - suspect viral URI, differential includes influenza and COVID-19. - Discussed supportive care treatment with home isolation, rest, cold medicine, and analgesia. - Red flags to seek further treatment include chest pain, shortness of breath, and lethargy; in the ER if severe. - BENZONATATE 100 MG CAPSULE - COVID & INFLUENZA A/B & RSV NAAT, ROUTINE -he is not beyond the antiviral therapeutic window but may you be beneficial for diagnosis with persistent symptoms. Kenan Munoz MD documented in this encounter [facility] 08-21-2023 History of Present illness Narrative POPULATION HEALTH NAVIGATION OUTREACH Action/FYI Pt due for colonoscopy- FOBT ordered 09/19/22 JASMYNE Flu shot AD Called pt and left voicemail No mychart Patient Identified by Name and : NO Outreach Outcome/Action Unable to reach patient: Left message Did you use a PCP flex slot to schedule this appointment? N/A Reason for Outreach Care Gap or Scheduling/Wellness visits Payer: Payor: AET MEDICARE / Plan: AET MEDICARE PPO / Product Type: PPO / Care Gap Reviewed:: Colorectal Cancer Screening Diabetic Eye Exam Flu Vaccine AD Reminder: Reminder note to check Health Maintenance for items below Health Maintenance items due: Pneumococcal Vaccine: 65+(1 of 2 - PCV) Never done Shingrix Vaccine(1 of 2) Never done RSV Vaccine(1 - 1-dose 60+ series) Never done Diabetic Foot Exam due on 07/06/2021 Colorectal Cancer Screening due on 09/08/2022 Influenza Vaccine(1) due on 03/02/2023 Covid-19 Vaccine(3 - 2022-24 season) due on 03/02/2023 Dilated Retinal Exam due on 05/16/2023 Advance Directive Discussion due on 07/02/2023 Depression Assessment due on 07/02/2023 Navigation Signature: Michelle Saleem August 21, 2023 3:07 PM documented in this encounter [facility] 03-26-2023 History of Present illness Narrative Hemoglobin A1c is already previously ordered along with other labs. 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 N/A Reason for Outreach Care Gap or Scheduling/Wellness visits Payer: Payor: AETNA MEDICARE / Plan: AETNA MEDICARE PPO / Product Type: PPO / Care Gap Reviewed:: Colorectal Cancer Screening Diabetic Eye Exam HBA1C Flu Vaccine AD Mychart activation Reminder: Reminder note to check Health Maintenance for items below Health Maintenance items due: Pneumococcal Vaccine: 65+(1 - PCV) Never done Shingrix Vaccine(1 of 2) Never done Hepatitis B Vaccine(1 of 3 - Risk 3-dose series) Never done BP Controlled (<130/80) due on 05/21/2020 Covid-19 Vaccine(3 - Pfizer series) due on 11/19/2020 Diabetic Foot Exam due on 07/06/2021 Advance Directive Discussion due on 07/02/2022 Colorectal Cancer Screening due on 09/08/2022 HbA1C due on 03/15/2023 Influenza Vaccine(1) due on 03/02/2023 Urine Albumin:Creatinine Ratio due on 03/08/2023 Navigation Signature: Michelle Saleem March 26, 2023 1:05 PM documented in this encounter [facility] 09-25-2022 Miscellaneous Notes Appt rescheduled. Caryn Canales Ma Spoke with pt in regards to needing to r/s pt's appt on 03/27 at 9:20 as PCP will be out. She will have pt call the office back to reschedule. Leonarda Morris Ma documented in this encounter [facility] 09-19-2022 Instructions Leonarda Morris Ma - 09/19/2022 9:33 AM EDT Urination - Take Flomax (Tamsulosin) 0.4 mg at bedtime to help with urinary frequency. Neuropathy - Instead of taking Gabapentin as needed you can take this regularly to see if this helps with the neuropathy pain in legs/feet. We have ordered fasting labs and a urine to complete 1 week prior to your next visit. documented in this encounter [facility] 09-19-2022 History of Present illness Narrative Chief Complaint Patient presents with: F/U 6 Month HPI Charline Sanchez is a 67 year old male who presents here today for a 6 month follow up. Pt here today for a 6 month follow up. Reports nothing new going on at this time. Does enjoy collecting sports cards, has a pretty good collection 75,000-100,000 cards. 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 Works at [employer] and helps with [employer] team. Completed season 43. GI/Uro - Denies any stomach or bowel issues. Occ has issues with constipation/harder stools but does drink prune juice prn. Gets up 3-4 x per night to urinate due to the diuretic and fluid intake. Has not been on any medications to help with frequent urination in the past. Was started on Flomax 0.4 mg once nightly at last OV, but admits that he's not been taking this regularly. PSA monitored yearly. Edema: Bahman legs, overall stable with use of Diovan HCT 80-12.5 mg. The swelling does improve overnight. Wondering if there's anything else he can do to help the swelling. Admits he's not sure if neuropathy is what makes his legs feel like this or swelling. Wears compression stockings. HTN: Denies checking BP at home, no chest pains, dizziness, or SOB. Does have lower leg edema. Taking Diovan 80-12.5 mg daily and Norvasc 10 mg daily. DM: Denies checking BS at home, having low blood sugars. Does note DM Neuropathy in b/l feet, described as pin/pricking and needle type of pain. Uses Gabapentin 300 mg AM, 600 mg PM (takes as needed not all the time) and Metformin 500 mg BID. He follows with Dr. Nielsen for his dm eye exams. Pain: Has done PT in the past for his bahman shoulder pain. Has followed with Dr. Parsons with Pain Management in the past, admits he's not seen him lately. Previously received injections in his neck which helped but not his lower back. He does have pins and needle sensation to both lower legs, notices it more in the mornings and evenings but as he gets busy during the day it does improve. He does use Gabapentin 300 mg AM and 600 mg PM, but tries to only take as needed. Continues to still have lower back issues, having to be careful when ambulating up and down stairs. Notes he has lost his balance causing him to fall, still has a sore spot. Lipid: Taking Lipitor 20 mg daily. Tolerating the medication well, no myalgia or gi upset. Tries to watch diet, but has been a little lax. Does exercise with daily chores and yard work. Fairly active. At times he will cough up some phlegm but doesn't have any nasal congestion or chest congestion. HM - Declines Hep C screening. Declines Flu shot. Agrees to IFOBT kit. Declines having Adv Dir/Living Will. Past medical history, appointments, medications, allergies reviewed. Previous Medical History PAST MEDICAL HISTORY Diagnosis Date Controlled type 2 diabetes mellitus without complication, without long-term current use of insulin (HCC) 06/19/2014 06/19/14 HbA1c 8.1 DVT of lower limb, acute (HCC) 07/13/2011 Hyperlipidemia LDL goal < 100 05/16/2013 Lumbar degenerative disc disease 07/09/2012 Pappas's neuroma 05/16/2013 Sciatica Superficial spreading malignant melanoma of skin (HCC) 12/03/2014 Previous Surgical History PAST SURGICAL HISTORY Procedure Laterality Date EXC SKIN MALIG >4CM REMAINDR BODY 04/16/2017 Squamous cell carcinoma completely excised clean margins MELANOMA OF SKIN EXCISION SYN RPT Left 2015 back MELANOMA OF SKIN EXCISION SYN RPT 04/16/2017 right posterior ear lesion [facility] TONSILLECTOMY PRIMARY/SECONDARY <AGE 12 Tonsillectomy Family History FAMILY HISTORY Problem Relation Age of Onset Heart Father valve Arthritis Mother knees,hips,lumbar spine Diabetes Mother other (electrical injury) Brother other (unknown) Brother Patient Allergies ALLERGIES Allergen Reactions Kidney Beans GI Upset Lisinopril Cough Tyler Seed Other: See Comments Adverse taste in mouth Current Medications Current Outpatient Medications on File Prior to Visit Medication Sig metFORMIN (GLUCOPHAGE) 500 mg tablet Take 1 tablet by mouth twice daily with meals. tamsulosin (FLOMAX) 0.4 mg Take 1 capsule by mouth daily at bedtime. atorvastatin (LIPITOR) 20 mg tablet Take 1 tablet by mouth once daily. Valsartan-hydroCHLOROthiazide (DIOVAN HCT) 80-12.5 mg per tablet Take 1 tablet by mouth once daily. amLODIPine (NORVASC) 10 mg tablet Take 1 tablet by mouth once daily. gabapentin (NEURONTIN) 300 mg capsule By mouth: 300mg qam, 600mg qHS ibuprofen (MOTRIN) 800 mg tablet Take 1 tablet by mouth every 8 hours as needed (FOR PAIN. TAKE WITH FOOD). blood sugar diagnostic (FREESTYLE LITE STRIPS) test strip Test blood sugar(s) one times daily. Dx: 250.02. Insulin: No Lancets (FREESTYLE LANCETS) lancets Test blood sugar(s) one times daily. Dx: 250.02. Insulin: No No current facility-administered medications on file prior to visit. Social History Social History Tobacco Use Smoking status: Never Smokeless tobacco: Never Substance Use Topics Alcohol use: Yes Comment: occassionally Drug use: No EXAM: BP 124/82 (BP Site: Left Arm, BP Position: Sitting, BP Cuff Size: Regular Adult) Pulse 68 Resp 16 Wt 93.9 kg (207 lb) BMI 31.47 kg/m General Appearance: Well appearing, alert, in no acute distress, well-hydrated, well nourished and Overweight. Lungs: Lungs clear to auscultation. No wheezing, rhonchi, rales.. Heart: RRR without murmur, gallop, or rubs. No ectopy. Health Maintenance List PNEUMOCOCCAL: 65+(1 - PCV) Never done HEPATITIS C SCREENING Never done SHINGRIX VACCINE(1 of 2) Never done COVID-19 VACCINE(3 - Booster for Pfizer series) due on 11/19/2020 DIABETIC FOOT EXAM due on 07/06/2021 INFLUENZA(1) due on 03/02/2022 ADVANCE DIRECTIVE DISCUSSION due on 07/02/2022 DEPRESSION ASSESSMENT Never done HBA1C due on 09/05/2022 COLORECTAL CANCER SCREENING due on 09/08/2022 URINE ALBUMIN:CREATININE RATIO due on 03/08/2023 LDL CHOLESTEROL due on 03/08/2023 ANNUAL PCP TEAM CHRONIC DISEASE VISIT due on 03/20/2023 BP CONTROLLED (<130/80) due on 03/20/2023 DILATED RETINAL EXAM due on 05/16/2023 PROSTATE CANCER SCREENING DISCUSSION due on 03/08/2027 DTAP,TDAP,TD(5 - Td or Tdap) due on 03/19/2031 Data reviewed Appointment on 09/12/2022 Component Date Value Cholesterol, Total 09/12/2022 140 Triglyceride 09/12/2022 84 HDL Cholesterol 09/12/2022 42 Non HDL Cholesterol 09/12/2022 98 Fasting Time 09/12/2022 12 VLDL Cholesterol 09/12/2022 17 TC:HDL Ratio 09/12/2022 3.33 LDL Cholesterol 09/12/2022 81 LDL:HDL Ratio 09/12/2022 1.93 Protein, Total 09/12/2022 6.8 Albumin 09/12/2022 4.1 Calcium, Total 09/12/2022 9.2 Bilirubin, Total 09/12/2022 1.6 (A) Alkaline Phosphatase 09/12/2022 89 AST 09/12/2022 23 ALT 09/12/2022 23 Glucose 09/12/2022 101 (A) BUN 09/12/2022 18 Creatinine 09/12/2022 0.88 Sodium 09/12/2022 139 Potassium 09/12/2022 3.7 Chloride 09/12/2022 99 CO2 09/12/2022 29 Anion Gap 09/12/2022 11 Estimated Glomerular Mahesh* 09/12/2022 94 Hemoglobin A1C 09/12/2022 6.9 (A) Estimated Average Glucose 09/12/2022 151 ASSESSMENT/PLAN: 1. Essential hypertension - ICD9: 401.9, ICD10: I10 (primary diagnosis) - good control - Continue current medication(s) - Recommended regular aerobic exercise. - Recommend home blood pressure monitoring, to bring results in on next visit - Goal of BP <130/80 - AMLODIPINE 10 MG TABLET 2. Hyperlipidemia with target LDL less than 100 - ICD9: 272.4, ICD10: E78.5 - good control - Continue current medication. - Encouraged following a low fat, low cholesterol diet. - Discussed the benefits of regular aerobic exercise and weight loss. - ATORVASTATIN 20 MG TABLET 3. DM (diabetes mellitus), type 2 with neurological complications (HCC) - ICD9: 250.60, ICD10: E11.49 - Controlled - Continue current medications - Counseled on healthy diet and regular exercise - ATORVASTATIN 20 MG TABLET 4. Lumbar degenerative disc disease - ICD9: 722.52, ICD10: M51.36 - Chronic back pain - Discussed that he may need to see Pain Mgmt in the future for injections, declines at present time. - Continue current medication regimen. 5. Cervical radiculopathy - ICD9: 723.4, ICD10: M54.12 - Improved with injections from Pain Management - Use Gabapentin prn 6. BPH associated with nocturia - ICD9: 600.01, 788.43, ICD10: N40.1, R35.1 - Discussed taking Flomax daily vs prn. - Continue current medication regimen. 7. Elevated PSA - ICD9: 790.93, ICD10: R97.20 - Cont to monitor, PSA lab entered 8. Screening for colon cancer - ICD9: V76.51, ICD10: Z12.11 - IFOBT given to pt. 6 mo f/u with labs. I agree with the Chief Complaint, ROS, and Past Histories independently gathered by the clinical administrative support coordinator and the remaining scribed note accurately describes my personal service to the patient. Medical Decision Making: Problems: Moderate: 2+ stable chronic illnesses Data: Unique test result(s) reviewed: 3+ Unique test(s) ordered: 3+ Risk: Moderate: Drug management Medical Decision Making Level: 4 - Moderate Viktor Ferrera MD The documentation for this note was completed by Leonarda Morris Ma acting as scribe for Viktor Ferrera MD. September 19, 2022 9:35 AM. Leonarda Morris Ma documented in this encounter [facility] 04-13-2022 Miscellaneous Notes The following approved medication requests have been transmitted electronically. Requested Prescriptions Pending Prescriptions Disp Refills metFORMIN (GLUCOPHAGE) 500 mg tablet 180 tablet 3 Sig: Take 1 tablet by mouth twice daily with meals. Michelle Martin [email or web address].[email or web address] Patient has been identified by name and date of : Yes Patient phones for refill(s): Requested Prescriptions No prescriptions requested or ordered in this encounter Date of last office visit in primary care: 03/20/2022 Labs-03/08/22 Labs-09/19/22 Last 2 Encounter Wt Readings: Date: Wt: 03/20/2022 90.7 kg (200 lb) 08/31/2021 89.6 kg (197 lb 9.6 oz) Previous labs/tests for medication: Not applicable Please advise. Thank you. Teetee Castañeda, PSS documented in this encounter [facility] 03-20-2022 History of Present illness Narrative Chief Complaint Patient presents with: 6 Month Exam HPI Charline Sanchez is a 66 year old male who presents here today for 6 month follow up. He does not have an advanced directive or living willing. Denies being depressed or hopeless. No bowel, Gi, or urinary issues. Gets up 3 x per night to urinate due to the diuretic. Has not been on any medications to help with frequent urination. He has some issues with constipation or harder stools. He does drink prune juice as needed. Does not take any fiber supplements or Miralax daily. PSA monitored yearly. Edema: bahman legs, doing well with the Diovan. The swelling does go down over night. HTN: Denies checking BP at home, no chest pains, dizziness, or SOB. Taking Diovan 80-12.5 mg daily and Norvasc 10 mg daily. DM: Does not check BS at home. No hypoglycemic episodes. DM Neuropathy in feet; using Gabapentin 300 mg AM, 600 mg PM (takes as needed) and Metformin 500 mg BID. He follows with Dr. Nielsen for his dm eye exams. Pain: Has been doing PT for his bahman shoulder pain. Has been following with Dr. Parsons, Pain Management. He does have pins and needle sensation to both lower legs, notices it more in the mornings and evenings but as he gets busy during the day he doesn't notice it as much. He does use Gabapentin 300 mg AM and 600 mg PM, but tries to only take as needed. He does not feel that the pain is any worse or more noticeable after being on his feet a lot or overly active. Lipid: Taking Lipitor 20 mg daily. Tolerating the medication well, no myalgia or gi upset. Tries to watch diet and exercise with daily chores and yard work. Past medical history, appointments, medications, allergies reviewed. Previous Medical History PAST MEDICAL HISTORY Diagnosis Date Controlled type 2 diabetes mellitus without complication, without long-term current use of insulin ([facility]) 06/19/2014 06/19/14 HbA1c 8.1 DVT of lower limb, acute ([facility]) 07/13/2011 Hyperlipidemia LDL goal < 100 05/16/2013 Lumbar degenerative disc disease 07/09/2012 Pappas's neuroma 05/16/2013 Sciatica Superficial spreading malignant melanoma of skin ([facility]) 12/03/2014 Previous Surgical History PAST SURGICAL HISTORY Procedure Laterality Date EXC SKIN MALIG >4CM REMAINDR BODY 04/16/2017 Squamous cell carcinoma completely excised clean margins MELANOMA OF SKIN EXCISION SYN RPT Left 2014 back MELANOMA OF SKIN EXCISION SYN RPT 04/16/2017 right posterior ear lesion [facility] TONSILLECTOMY PRIMARY/SECONDARY <AGE 12 Tonsillectomy Family History FAMILY HISTORY Problem Relation Age of Onset Heart Father valve Arthritis Mother knees,hips,lumbar spine Diabetes Mother other (electrical injury) Brother other (unknown) Brother Patient Allergies ALLERGIES Allergen Reactions Kidney Beans GI Upset Lisinopril Cough Tyler Seed Other: See Comments Adverse taste in mouth Current Medications Current Outpatient Medications on File Prior to Visit Medication Sig atorvastatin (LIPITOR) 20 mg tablet Take 1 tablet by mouth once daily. metFORMIN (GLUCOPHAGE) 500 mg tablet Take 1 tablet by mouth twice daily with meals. Valsartan-hydroCHLOROthiazide (DIOVAN HCT) 80-12.5 mg per tablet Take 1 tablet by mouth once daily. amLODIPine (NORVASC) 10 mg tablet Take 1 tablet by mouth once daily. gabapentin (NEURONTIN) 300 mg capsule By mouth: 300mg qam, 600mg qHS ibuprofen (MOTRIN) 800 mg tablet Take 1 tablet by mouth every 8 hours as needed (FOR PAIN. TAKE WITH FOOD). penicillin V potassium (V-CILLIN, VEETIDS) 500 mg tablet Take 500 mg by mouth four times daily. blood sugar diagnostic (FREESTYLE LITE STRIPS) test strip Test blood sugar(s) one times daily. Dx: 250.02. Insulin: No Lancets (FREESTYLE LANCETS) lancets Test blood sugar(s) one times daily. Dx: 250.02. Insulin: No No current facility-administered medications on file prior to visit. Social History Social History Tobacco Use Smoking status: Never Smokeless tobacco: Never Substance Use Topics Alcohol use: Yes Comment: occassionally Drug use: No EXAM: BP 120/78 Pulse 70 Resp 16 Wt 90.7 kg (200 lb) BMI 30.41 kg/m General Appearance: Well appearing, alert, in no acute distress, well-hydrated, well nourished.. Lungs: Lungs clear to auscultation. No wheezing, rhonchi, rales.. Heart: RRR without murmur, gallop, or rubs. No ectopy. Health Maintenance List PNEUMOCOCCAL: 65+(1 - PCV) Never done HEPATITIS C SCREENING Never done SHINGRIX VACCINE(1 of 2) Never done DEPRESSION SCREENING due on 10/04/2018 BP CONTROLLED (<130/80) due on 05/21/2020 COVID-19 VACCINE(3 - Booster for Pfizer series) due on 02/24/2021 ADVANCE DIRECTIVE DISCUSSION Never done DIABETIC FOOT EXAM due on 07/06/2021 DILATED RETINAL EXAM due on 02/18/2022 INFLUENZA(1) due on 03/02/2022 ANNUAL PCP TEAM CHRONIC DISEASE VISIT due on 08/31/2022 HBA1C due on 09/05/2022 COLORECTAL CANCER SCREENING due on 09/08/2022 URINE ALBUMIN:CREATININE RATIO due on 03/08/2023 LDL CHOLESTEROL due on 03/08/2023 PROSTATE CANCER SCREENING DISCUSSION due on 03/08/2027 DTAP,TDAP,TD(5 - Td or Tdap) due on 03/19/2031 Data reviewed Appointment on 03/08/2022 Component Date Value Hemoglobin A1C 03/08/2022 6.7 (A) Estimated Average Glucose 03/08/2022 146 Protein, Total 03/08/2022 7.4 Albumin 03/08/2022 4.5 Calcium, Total 03/08/2022 9.6 Bilirubin, Total 03/08/2022 1.2 Alkaline Phosphatase 03/08/2022 96 AST 03/08/2022 21 ALT 03/08/2022 19 Glucose 03/08/2022 118 (A) BUN 03/08/2022 19 Creatinine 03/08/2022 0.89 Sodium 03/08/2022 140 Potassium 03/08/2022 3.8 Chloride 03/08/2022 100 CO2 03/08/2022 29 Anion Gap 03/08/2022 11 Estimated Glomerular Mahesh* 03/08/2022 94 Cholesterol, Total 03/08/2022 174 Triglyceride 03/08/2022 78 HDL Cholesterol 03/08/2022 48 Non HDL Cholesterol 03/08/2022 126 Fasting Time 03/08/2022 12 VLDL Cholesterol 03/08/2022 16 TC:HDL Ratio 03/08/2022 3.63 LDL Cholesterol 03/08/2022 110 (A) LDL:HDL Ratio 03/08/2022 2.29 PSA 03/08/2022 4.07 (A) Creatinine, Ur Random (U* 03/08/2022 78.3 Albumin, Urine Random 03/08/2022 <12.0 Albumin/Creat Ratio 03/08/2022 <15 ASSESSMENT/PLAN: 1. DM (diabetes mellitus), type 2 with neurological complications (HCC) - ICD9: 250.60, ICD10: E11.49 (primary diagnosis) Controlled. - Continue current medications 2. Intervertebral lumbar disc disorder with myelopathy, lumbar region - ICD9: 722.73, ICD10: M51.06 Continue with pain management provider Continue current medication 3. Primary hypertension - ICD9: 401.9, ICD10: I10 - good control - Continue current medication(s) - Recommended regular aerobic exercise. - Recommend home blood pressure monitoring, to bring results in on next visit - Goal of BP <130/80 4. Hyperlipidemia with target LDL less than 100 - ICD9: 272.4, ICD10: E78.5 - good control - Continue current medication. - Encouraged following a low fat, low cholesterol diet. - Discussed the benefits of regular aerobic exercise and weight loss. 5. BPH associated with nocturia - ICD9: 600.01, 788.43, ICD10: N40.1, R35.1 Start Flomax 0.4 mg daily at bedtime Check PSA lab yearly Follow up in 6 months with fasting labs prior. I agree with the Chief Complaint, ROS, and Past Histories independently gathered by the clinical administrative support coordinator and the remaining scribed note accurately describes my personal service to the patient. Medical Decision Making: Problems: Moderate: 2+ stable chronic illnesses and 1+ chronic illnesses with change Data: Unique test result(s) reviewed: 3+ Unique test(s) ordered: 2 Risk: Moderate: Drug management Medical Decision Making Level: 4 - Moderate Viktor Ferrera MD The documentation for this note was completed by Caryn Canales Ma acting as scribe for Viktor Ferrera MD. March 20, 2022 9:17 AM. Caryn Canales Ma documented in this encounter [facility] 02-27-2022 History of Present illness Narrative POPULATION HEALTH NAVIGATION OUTREACH Action/FYI Patient due for JASMYNE, Urine Albumin, AD Left message with my direct line. Pt identified by name and : NO Outreach Outcome/Action Unable to reach patient: Left message Did you use a PCP flex slot to schedule this appointment? N/A Reason for Outreach Care Gap or Scheduling/Wellness visits Payer: Payor: AET MEDICARE / Plan: AETNA MEDICARE PPO / Product Type: PPO / Care Gap Reviewed:: Diabetic Eye Exam Nephropathy (Albumin/Creatinine) Urine Reminder: Reminder note to check Health Maintenance for items below Health Maintenance items due: PNEUMOCOCCAL: 65+(1 - PCV) Never done HEPATITIS C SCREENING Never done SHINGRIX VACCINE(1 of 2) Never done DEPRESSION SCREENING due on 10/04/2018 BP CONTROLLED (<130/80) due on 05/21/2020 COVID-19 VACCINE(3 - Booster for Pfizer series) due on 02/24/2021 URINE ALBUMIN:CREATININE RATIO due on 06/29/2021 ADVANCE DIRECTIVE DISCUSSION Never done DIABETIC FOOT EXAM due on 07/06/2021 DILATED RETINAL EXAM due on 02/18/2022 Message Sent to Practice: No Navigation Signature: Cecille Nieto February 27, 2022 3:41 PM documented in this encounter [facility] 10-18-2021 History of Present illness Narrative Episode Visit Count: 21 Therapist That Will Oversee The Plan Of Care: Abdullahi Conde Start of Care Date: 04/12/21 Onset Date: 01/10/21 Plan of Care Certification Date: 09/13/21 Next Certification Due Date: 10/18/21 Patient Identified by Name and Date of : Yes [facility]AB[facility]TS [facility]ER[facility]Y PHYSICAL THERAPY DISCONTINUANCE OF CARE PLAN OF CARE UPDATE: Assessment: Charline Sanchez is discontinued from Physical Therapy services due to Patient/Clinician mutual decision to discontinue current plan of care.. Patient was seen for 21 visits from Start of Care Date: 04/12/21 to 10/18/2021 and treatment included: Therapeutic exercise, Manual therapy, Self-nursing home management and Patient/Family/Caregiver Education. Pt confident with continuing with HEP independently. Goals updated 09/13/2020 Goals created on 04/12/2021 Pt will demo 4+/5 RUE strength for ease of lifting and dressing - Progressing, will continue Pt will demo 4+/5 LUE strength for ease of lifting and dressing- Progressing, will continue Pt will demo RUE and LUE ROM that is WNL for ease of reaching overhead and pulling up pants - Progressing, will continue Pt will report an overall improvement in symptoms by 80% in 10 weeks for improved QOL - Progressing, will continue SUBJECTIVE: Patient Reason for Visit: Pt states that he mowed the yard and the ground was level and his lower back hurt from this. Pt states that the shoulders did not get any worse from the mowing. Pt feels his shoulders still get sore. The shoulders felt good at one point but he knows once he moved the bleachers that his shoulder became sore again. Pt will be getting injections into the posterior aspect of the neck to see if this helps with the tingling in the R hand. Pain: Pain Pain Level: 4 Pain Location: Shoulder - Left Pain Level 2: 4 Pain Location 2: Shoulder - Right PROMIS Scales Higher is Better 09/02/2019 Phys Func - Score 41 (mild dysfunction) Phys Func - Percentile 18 % Social Roles - Score 42 (mild dysfunction) Social Role - Percentile 21 % GH Physical - Score 39.8 GH Physical - Percentile 15 % GH Mental - Score 43.5 GH Mental - Percentile 26 % T-scores: mean of general population = 50. 5 points is clinically meaningfully difference Percentiles provide an indication of how the patient's score ranks in relation to the general population. Higher percentile rankings indicate better function/quality of life. 50th percentile is the average of the general population and indicates half of respondents had a worse score. Lower is Better 09/02/2019 Fatigue - Score 51 (within normal limits) Fatigue - Percentile 46 % T-scores: mean of general population = 50. 5 points is clinically meaningfully difference Percentiles provide an indication of how the patient's score ranks in relation to the general population. Higher percentile rankings indicate better function/quality of life. 50th percentile is the average of the general population and indicates half of respondents had a worse score. OBJECTIVE MEASURES WITH LEVEL OF FUNCTION: UE AROM R Shoulder Flex: 124 Degrees R Shoulder ABduction: 126 Degrees R Shoulder Internal Rotation (Functional): L3 L Shoulder Flex: 127 Degrees L Shoulder ABduction: 134 Degrees L Shoulder Internal Rotation (Functional): L2 UE and Cervical Strength R Shoulder Flexion: 4+/5 R Shoulder Abduction (C5): 4/5 R Shoulder Internal Rotation: 5/5 R Shoulder External Rotation: 4+/5 L Shoulder Flexion: 4+/5 L Shoulder Abduction (C5): 4/5 L Shoulder Internal Rotation: 5/5 L Shoulder External Rotation: 5/5 TREATMENT: Therapeutic Exercise: 1: All objective measures taken this session 2: Standing shoulder flexion OTB x 12 reps each arm (done separately) 3: BIlat shoulder ER OTB x 12 reps 4: Discussed progressing through different levels of bands as tolerated. Discussed importance again of not pushing through 3/10 pain or greater with exercise. Skilled Intervention: Patient was educated in proper exercise technique and purpose for exercises. Skilled judgment was provided in selection of appropriate interventions. Correct performance of therapeutic exercises was facilitated with verbal and visual cuing. Billing Therapeutic Exercise Treatment Minutes: 31 Total Treatment Time Minutes (timed/untimed): 31 Abdullahi Conde PT documented in this encounter [facility] 10-12-2021 Miscellaneous Notes The following approved medication requests have been transmitted electronically. Pending Prescriptions Disp Refills ATORVASTATIN 20 MG TABLET 90 tablet 3 Sig: Take 1 tablet by mouth once daily. OSEI: No METFORMIN 500 MG TABLET 180 tablet 3 Sig: Take 1 tablet by mouth twice daily with meals. OSEI: No Montana Leblanc APRN.CNP Patient last visit with PCP 08/31/21 Follow up appointment scheduled 03/20/22 Cathy Garner Ma Patient has been identified by name and date of : Yes Pending Prescriptions Disp Refills ATORVASTATIN 20 MG TABLET 90 tablet 3 Sig: Take 1 tablet by mouth once daily. OSEI: No METFORMIN 500 MG TABLET 180 tablet 3 Sig: Take 1 tablet by mouth twice daily with meals. OSEI: No RX INSTRUCTIONS: Patient only has 1 day left on these scripts and needs refills sent to pharmacy [facility] Patient aware RX will be sent to pharmacy. No need to notify patient. Becki Gallagher Pss documented in this encounter [facility] 10-11-2021 History of Present illness Narrative Episode Visit Count: 20 Therapist That Will Oversee The Plan Of Care: Abdullahi Conde Start of Care Date: 04/12/21 Onset Date: 01/10/21 Plan of Care Certification Date: 09/13/21 Next Certification Due Date: 10/18/21 Patient Identified by Name and Date of : Yes REHABILITATION AND SPORTS THERAPY PHYSICAL THERAPY TREATMENT NOTE ASSESSMENT: Charline Sanchez tolerated the session with some increased soreness with the L shoulder and R shoulder has no issues with today's session. He demonstrated difficulty with L shoulder elevation. The patient will continue to benefit from ongoing skilled physical therapy for reassessment by supervising therapist. PLAN FOR NEXT VISIT: POC update SUBJECTIVE: Patient Reason for Visit: Pt states that his physician is thinking about injecting cortisone into the spinal canal to see if that helps his constant tingling in the R hand. Pt states that his shoulder are still sore and achy. Pt states that spring is coming and he is busy and certain things can irritate the shoulders. Pain: Pain Pain Level: 6 (when lifting the arm today) Pain Location: Shoulder - Left Pain Level 2: 6 Pain Location 2: Shoulder - Right Post Treatment Pain Post Treatment Pain Level: Worse Post Treatment Pain Location: Shoulder - Left OBJECTIVE MEASURES WITH LEVEL OF FUNCTION: Palpation over supraspinatis causes some pain at L shoulder TREATMENT: Therapeutic Exercise: 1: standing shoulder scaption x 8 each arm 2: Standing shoulder flexion slides on wall x 10 each 3: R and then L shoulder ER iso on wall x 10 reps holding 3 sec each 4: Seated vadim into scaption BUE x 20 each 5: gentle pendulums x 10 Skilled Intervention: Patient was educated in proper exercise technique and purpose for exercises. Correct performance of therapeutic exercises was facilitated with verbal and visual cuing. Billing Therapeutic Exercise Treatment Minutes: 38 Total Treatment Time Minutes (timed/untimed): 38 Abdullahi Conde PT documented in this encounter [facility] 09-27-2021 History of Present illness Narrative Episode Visit Count: 19 Therapist That Will Oversee The Plan Of Care: Abdullahi Conde Start of Care Date: 04/12/21 Onset Date: 01/10/21 Plan of Care Certification Date: 09/13/21 Next Certification Due Date: 10/18/21 Patient Identified by Name and Date of : Yes REHABILITATION AND SPORTS THERAPY PHYSICAL THERAPY TREATMENT NOTE ASSESSMENT: Charline Delcid Laura tolerated the session with expected muscle soreness. He demonstrated good attitude towards therapeutic exercises. The patient will continue to benefit from ongoing skilled physical therapy to progress toward set goals. PLAN FOR NEXT VISIT: Progress ER RUE loading as tolerated SUBJECTIVE: Patient Reason for Visit: Pt states that his shoulders are cold and not warmed up yet. Pt states the R shoulder tends to be more sore. Pain: Pain Pain Level: 2 Pain Location: Shoulder - Left Pain Level 2: 2 Pain Location 2: Shoulder - Right Post Treatment Pain Post Treatment Pain Location: Shoulder - Left;Shoulder - Right Post Treatment Pain Description: Sore OBJECTIVE MEASURES WITH LEVEL OF FUNCTION: TREATMENT: Therapeutic Exercise: 1: Shoulder vadim flexion and abduction x 30 each 2: shoulder slides on wall bilat 3 x 10 3: Shoulder OTB ER RUE x1 tail 2 x 10 4: Shoulder IR OTB x 2 tails x 2 sets 5: LUE ER and IR OTB x 2 tails 2 x 10 reach 6: Shoulder abd iso 3 x 10 reps holding 3-5 seconds each (each arm) Skilled Intervention: Patient was educated in proper exercise technique and purpose for exercises. Correct performance of therapeutic exercises was facilitated with verbal cuing. Billing Therapeutic Exercise Treatment Minutes: 42 Total Treatment Time Minutes (timed and untimed codes) : 42 Abdullahi Conde PT documented in this encounter [facility] 04-04-2021 History of Present illness Narrative Radiology Service Progress Note PATIENT NAME: Charline Sanchez DATE OF SERVICE: April 04, 2021 TIME: 5:28 PM PATIENT IDENTITY VERIFICATION COMPLETED USING TWO (2) IDENTIFIERS: Name and Date of confirmed by patient verbally. FALL SCREENING: Has the patient had 2 falls in the last year or 1 fall with injury or currently using an Ambulatory Assistive Device (Walker, Cane, Wheelchair, Crutches, etc.)? No PATIENT GENDER DATA: Male PATIENT RELEVANT IMPLANT DATA REVIEWED: Yes RADIOLOGY DEPARTMENT: General X-ray: Exam(s) Completed: Upper Extremity X-Ray(s): Shoulder, AP / TRUE AP / AXILLARY bilateral PERIPHERAL IV DATA: Not applicable SIGNED BY: RT Mariza(R) April 04, 2021 5:28 PM documented in this encounter [facility] 04-28-2015 History of Past i llness Narrative Problem Noted Date Resolved Date Bilateral lumbar radiculopathy 04/28/2015 0 09/21/2016 Pappas's neuroma 05/16/2013 09/21/2016 Pain in joint, lower leg 11/02/2011 015 Popliteal cyst 07/21/2011 04/28/2015 DVT of lower limb, acute 07/13/2011 017 Patellar tendinitis 06/06/2011 04/28/2015 Sciatica 12/17/2007 09/21/2016 documented as of this encounter (statuses as of 09/27/2021) [facility] History of Past illness Narrative* Problem Noted Date Resolved Date Bilateral lumbar radiculopathy 04/28/2015 0 09/21/2016 Pappas's neuroma 05/16/2013 09/21/2016 Pain in joint, lower leg 11/02/2011 015 Popliteal cyst 07/21/2011 04/28/2015 DVT of lower limb, acute 07/13/2011 017 Patellar tendinitis 06/06/2011 04/28/2015 Sciatica 12/17/2007 09/21/2016 documented as of this encounter (statuses as of 10/11/2021) [facility] History of Past illness Narrative* Problem Noted Date Resolved Date Bilateral lumbar radiculopathy 04/28/2015 0 09/21/2016 Pappas's neuroma 05/16/2013 09/21/2016 Pain in joint, lower leg 11/02/2011 015 Popliteal cyst 07/21/2011 04/28/2015 DVT of lower limb, acute 07/13/2011 017 Patellar tendinitis 06/06/2011 04/28/2015 Sciatica 12/17/2007 09/21/2016 documented as of this encounter (statuses as of 10/12/2021) [facility] History of Past illness Narrative* Problem Noted Date Resolved Date Bilateral lumbar radiculopathy 04/28/2015 0 09/21/2016 Pappas's neuroma 05/16/2013 09/21/2016 Pain in joint, lower leg 11/02/2011 015 Popliteal cyst 07/21/2011 04/28/2015 DVT of lower limb, acute 07/13/2011 017 Patellar tendinitis 06/06/2011 04/28/2015 Sciatica 12/17/2007 09/21/2016 documented as of this encounter (statuses as of 10/18/2021) [facility] History of Past illness Narrative* Problem Noted Date Resolved Date Bilateral lumbar radiculopathy 04/28/2015 0 09/21/2016 Pappas's neuroma 05/16/2013 09/21/2016 Pain in joint, lower leg 11/02/2011 015 Popliteal cyst 07/21/2011 04/28/2015 DVT of lower limb, acute 07/13/2011 017 Patellar tendinitis 06/06/2011 04/28/2015 Sciatica 12/17/2007 09/21/2016 documented as of this encounter (statuses as of 02/27/2022) [facility] History of Past illness Narrative* Problem Noted Date Resolved Date Bilateral lumbar radiculopathy 04/28/2015 0 09/21/2016 Pappas's neuroma 05/16/2013 09/21/2016 Pain in joint, lower leg 11/02/2011 015 Popliteal cyst 07/21/2011 04/28/2015 DVT of lower limb, acute 07/13/2011 017 Patellar tendinitis 06/06/2011 04/28/2015 Sciatica 12/17/2007 09/21/2016 documented as of this encounter (statuses as of 03/20/2022) [facility] History of Past illness Narrative* Problem Noted Date Resolved Date Bilateral lumbar radiculopathy 04/28/2015 0 09/21/2016 Pappas's neuroma 05/16/2013 09/21/2016 Pain in joint, lower leg 11/02/2011 015 Popliteal cyst 07/21/2011 04/28/2015 DVT of lower limb, acute 07/13/2011 017 Patellar tendinitis 06/06/2011 04/28/2015 Sciatica 12/17/2007 09/21/2016 documented as of this encounter (statuses as of 04/14/2022) [facility] History of Past illness Narrative* Problem Noted Date Resolved Date Bilateral lumbar radiculopathy 04/28/2015 0 09/21/2016 Pappas's neuroma 05/16/2013 09/21/2016 Pain in joint, lower leg 11/02/2011 10/28/2 015 Popliteal cyst 07/21/2011 04/28/2015 DVT of lower limb, acute 07/13/2011 017 Patellar tendinitis 06/06/2011 04/28/2015 Sciatica 12/17/2007 09/21/2016 documented as of this encounter (statuses as of 09/19/2022) [facility] History of Past illness Narrative* Problem Noted Date Resolved Date Bilateral lumbar radiculopathy 04/28/2015 0 09/21/2016 Pappas's neuroma 05/16/2013 09/21/2016 Pain in joint, lower leg 11/02/2011 015 Popliteal cyst 07/21/2011 04/28/2015 DVT of lower limb, acute 07/13/2011 017 Patellar tendinitis 06/06/2011 04/28/2015 Sciatica 12/17/2007 09/21/2016 documented as of this encounter (statuses as of 09/25/2022) [facility] History of Past illness Narrative* Problem Noted Date Diagnosed Date Resolved Date Bilateral lumbar radiculopathy 04/28/2015 09/21/2016 Pappas's neuroma 05/16/2013 09/21/2016 Pain in joint, lower leg 11/02/2011 Popliteal cyst 07/21/2011 04/28/2015 DVT of lower limb, acute 07/13/2011 Patellar tendinitis 06/06/2011 04/28/20 15 Sciatica 12/17/2007 09/21/2016 documented as of this encounter (statuses as of 03/26/2023) [facility] History of Past illness Narrative* Problem Noted Date Diagnosed Date Resolved Date Bilateral lumbar radiculopathy 04/28/2015 09/21/2016 Pappas's neuroma 05/16/2013 09/21/2016 Pain in joint, lower leg 11/02/2011 Popliteal cyst 07/21/2011 04/28/2015 DVT of lower limb, acute 07/13/2011 Patellar tendinitis 06/06/2011 04/28/20 15 Sciatica 12/17/2007 09/21/2016 documented as of this encounter (statuses as of 08/21/2023) [facility] History of Past illness Narrative* Problem Noted Date Diagnosed Date Resolved Date Bilateral lumbar radiculopathy 04/28/2015 09/21/2016 Pappas's neuroma 05/16/2013 09/21/2016 Pain in joint, lower leg 11/02/2011 Popliteal cyst 07/21/2011 04/28/2015 DVT of lower limb, acute 07/13/2011 Patellar tendinitis 06/06/2011 04/28/20 15 Sciatica 12/17/2007 09/21/2016 documented as of this encounter (statuses as of 08/31/2023) [facility] History of Past illness Narrative* Problem Noted Date Diagnosed Date Resolved Date Bilateral lumbar radiculopathy 04/28/2015 09/21/2016 Pappas's neuroma 05/16/2013 09/21/2016 Pain in joint, lower leg 11/02/2011 Popliteal cyst 07/21/2011 04/28/2015 DVT of lower limb, acute 07/13/2011 Patellar tendinitis 06/06/2011 04/28/20 15 Sciatica 12/17/2007 09/21/2016 documented as of this encounter (statuses as of 09/01/2023) [facility] History of Past illness Narrative* Problem Noted Date Diagnosed Date Resolved Date Bilateral lumbar radiculopathy 04/28/2015 09/21/2016 Pappas's neuroma 05/16/2013 09/21/2016 Pain in joint, lower leg 11/02/2011 Popliteal cyst 07/21/2011 04/28/2015 DVT of lower limb, acute 07/13/2011 Patellar tendinitis 06/06/2011 04/28/20 15 Sciatica 12/17/2007 09/21/2016 documented as of this encounter (statuses as of 09/03/2023) [facility] History of Past illness Narrative* Problem Noted Date Diagnosed Date Resolved Date Bilateral lumbar radiculopathy 04/28/2015 09/21/2016 Pappas's neuroma 05/16/2013 09/21/2016 Pain in joint, lower leg 11/02/2011 Popliteal cyst 07/21/2011 04/28/2015 DVT of lower limb, acute 07/13/2011 Patellar tendinitis 06/06/2011 04/28/20 15 Sciatica 12/17/2007 09/21/2016 documented as of this encounter (statuses as of 10/11/2023) [facility] History of Past illness Narrative* Problem Noted Date Diagnosed Date Resolved Date Bilateral lumbar radiculopathy 04/28/2015 09/21/2016 Pappas's neuroma 05/16/2013 09/21/2016 Pain in joint, lower leg 11/02/2011 Popliteal cyst 07/21/2011 04/28/2015 DVT of lower limb, acute 07/13/2011 Patellar tendinitis 06/06/2011 04/28/20 15 Sciatica 12/17/2007 09/21/2016 documented as of this encounter (statuses as of 10/12/2023) [facility] Diagnosis Laceration of nose, initial encounter- Primary Facial injury, initial encounter documented in this encounter [facility] Work Phone: Evaluation note* Diagnosis Chronic pain of both shoulders- Primary Pain in joint, shoulder region [facility] Diagnosis Chronic pain of both shoulders- Primary Pain in joint, shoulder region [facility] Diagnosis DM (diabetes mellitus), type 2 with neurological complications (HCC) Type II or unspecified type diabetes mellitus with neurological manifestations, not stated as uncontrolled Hyperlipidemia with target LDL less than 100 Other and unspecified hyperlipidemia Controlled type 2 diabetes mellitus without complication, without long-term current use of insulin (HCC) [facility] Diagnosis Chronic pain of both shoulders- Primary Pain in joint, shoulder region [facility] Diagnosis DM (diabetes mellitus), type 2 with neurological complications (HCC)- Primary Type II or unspecified type diabetes mellitus with neurological manifestations, not stated as uncontrolled Intervertebral lumbar disc disorder with myelopathy, lumbar region Primary hypertension Unspecified essential hypertension Hyperlipidemia with target LDL less than 100 Other and unspecified hyperlipidemia BPH associated with nocturia Hypertrophy of prostate with urinary obstruction and other lower urinary tract symptoms (LUTS) [facility] Diagnosis DM (diabetes mellitus), type 2 with neurological complications (HCC) Type II or unspecified type diabetes mellitus with neurological manifestations, not stated as uncontrolled Controlled type 2 diabetes mellitus without complication, without long-term current use of insulin (HCC) [facility] Diagnosis Essential hypertension- Primary Unspecified essential hypertension Hyperlipidemia with target LDL less than 100 Other and unspecified hyperlipidemia DM (diabetes mellitus), type 2 with neurological complications (HCC) Type II or unspecified type diabetes mellitus with neurological manifestations, not stated as uncontrolled Lumbar degenerative disc disease Degeneration of lumbar or lumbosacral intervertebral disc Cervical radiculopathy Brachial neuritis or radiculitis nos BPH associated with nocturia Hypertrophy of prostate with urinary obstruction and other lower urinary tract symptoms (LUTS) Elevated PSA Elevated prostate specific antigen (PSA) Screening for colon cancer Special screening for malignant neoplasms, colon [facility] Diagnosis DM (diabetes mellitus), type 2 with neurological complications (HCC)- Primary Type II or unspecified type diabetes mellitus with neurological manifestations, not stated as uncontrolled [facility] Diagnosis URI, acute- Primary Acute upper respiratory infections of unspecified site Acute cough [facility] Diagnosis Bronchitis- Primary Bronchitis, not specified as acute or chronic [facility] Diagnosis BPH associated with nocturia- Primary Hypertrophy of prostate with urinary obstruction and other lower urinary tract symptoms (LUTS) Elevated PSA Elevated prostate specific antigen (PSA) Memory changes Memory loss DM (diabetes mellitus), type 2 with neurological complications (HCC) Type II or unspecified type diabetes mellitus with neurological manifestations, not stated as uncontrolled Essential hypertension Unspecified essential hypertension Radiculopathy of lumbar region Thoracic or lumbosacral neuritis or radiculitis, unspecified Radiculitis, cervical Brachial neuritis or radiculitis nos Hyperlipidemia with target LDL less than 100 Other and unspecified hyperlipidemia [facility] Diagnosis Vitamin D deficiency- Primary Unspecified vitamin D deficiency [facility] Diagnosis DM (diabetes mellitus), type 2 with neurological complications (HCC) Type II or unspecified type diabetes mellitus with neurological manifestations, not stated as uncontrolled Hyperlipidemia with target LDL less than 100 Other and unspecified hyperlipidemia Essential hypertension Unspecified essential hypertension [facility] Memory loss- Primary Cognitive decline Unspecified persistent mental disorders due to conditions classified elsewhere [facility] Diagnosis Memory loss Cognitive decline Unspecified persistent mental disorders due to conditions classified elsewhere [facility] Memory loss- Primary [facility] Diagnosis Memory loss- Primary [facility] Diagnosis Mild cognitive impairment- Primary Mild cognitive impairment, so stated Depression with anxiety Dysthymic disorder [facility] Diagnosis BPH associated with nocturia- Primary Hypertrophy of prostate with urinary obstruction and other lower urinary tract symptoms (LUTS) Elevated PSA Elevated prostate specific antigen (PSA) OAB (overactive bladder) Hypertonicity of bladder [facility] Diagnosis Chronic pain of both shoulders Pain in joint, shoulder region [facility] Diagnosis MCI (mild cognitive impairment)- Primary Mild cognitive impairment, so stated Memory loss [facility] Diagnosis Controlled type 2 diabetes mellitus without complication, without long-term current use of insulin (HCC)- Primary Essential hypertension Unspecified essential hypertension Hyperlipidemia with target LDL less than 100 Other and unspecified hyperlipidemia Memory changes Memory loss Vitamin D deficiency Unspecified vitamin D deficiency BPH associated with nocturia Hypertrophy of prostate with urinary obstruction and other lower urinary tract symptoms (LUTS) Elevated PSA Elevated prostate specific antigen (PSA) Radiculopathy of lumbar region Thoracic or lumbosacral neuritis or radiculitis, unspecified Screening for colon cancer Special screening for malignant neoplasms, colon [facility] Diagnosis BPH associated with nocturia Hypertrophy of prostate with urinary obstruction and other lower urinary tract symptoms (LUTS) OAB (overactive bladder) Hypertonicity of bladder [facility] Diagnosis BPH associated with nocturia Hypertrophy of prostate with urinary obstruction and other lower urinary tract symptoms (LUTS) OAB (overactive bladder) Hypertonicity of bladder [facility] Diagnosis BPH associated with nocturia Hypertrophy of prostate with urinary obstruction and other lower urinary tract symptoms (LUTS) OAB (overactive bladder) Hypertonicity of bladder [facility] BPH associated with nocturia- Primary Hypertrophy of prostate with urinary obstruction and other lower urinary tract symptoms (LUTS) Elevated PSA Elevated prostate specific antigen (PSA) [facility] Diagnosis Radiculopathy of lumbar region- Primary Thoracic or lumbosacral neuritis or radiculitis, unspecified [facility] Diagnosis Radiculopathy of lumbar region- Primary Thoracic or lumbosacral neuritis or radiculitis, unspecified [facility] Diagnosis BPH associated with nocturia- Primary Hypertrophy of prostate with urinary obstruction and other lower urinary tract symptoms (LUTS) Urgency of urination OAB (overactive bladder) Hypertonicity of bladder Elevated PSA Elevated prostate specific antigen (PSA) [facility] Diagnosis Radiculopathy of lumbar region- Primary Thoracic or lumbosacral neuritis or radiculitis, unspecified [facility] Diagnosis Radiculopathy of lumbar region- Primary Thoracic or lumbosacral neuritis or radiculitis, unspecified Radiculopathy of lumbar region- Primary Thoracic or lumbosacral neuritis or radiculitis, unspecified [facility] Diagnosis Neck pain on right side- Primary Cervicalgia Radiculopathy of lumbar region- Primary Thoracic or lumbosacral neuritis or radiculitis, unspecified [facility] Diagnosis Strain of neck muscle, initial encounter- Primary Cervical radiculopathy Brachial neuritis or radiculitis nos Controlled type 2 diabetes mellitus without complication, without long-term current use of insulin (HCC) [facility] Diagnosis Cervical radiculopathy- Primary Brachial neuritis or radiculitis nos Strain of neck muscle, initial encounter [facility] Diagnosis Strain of neck muscle, initial encounter- Primary Cervical radiculopathy Brachial neuritis or radiculitis nos [facility] Diagnosis Strain of neck muscle, initial encounter- Primary Cervical radiculopathy Brachial neuritis or radiculitis nos [facility] Diagnosis Radiculopathy of lumbar region- Primary Thoracic or lumbosacral neuritis or radiculitis, unspecified [facility] Diagnosis Claustrophobia- Primary Other isolated or specific phobias documented [facility] this [facility] Diagnosis Radiculopathy of lumbar region- Primary Thoracic or lumbosacral neuritis or radiculitis, unspecified Strain of neck muscle, initial encounter Cervical radiculopathy Brachial neuritis or radiculitis nos documented [facility] Diagnosis Radiculopathy of lumbar region Thoracic or lumbosacral neuritis or radiculitis, unspecified [facility] Diagnosis Strain of neck muscle, initial encounter- Primary Cervical radiculopathy Brachial neuritis or radiculitis nos Radiculopathy of lumbar region Thoracic or lumbosacral neuritis or radiculitis, unspecified [facility] Diagnosis Strain of neck muscle, initial encounter- Primary Cervical radiculopathy Brachial neuritis or radiculitis nos Radiculopathy of lumbar region Thoracic or lumbosacral neuritis or radiculitis, unspecified [facility] Diagnosis Urinary incontinence, unspecified type- Primary [facility] Diagnosis Muscular incoordination- Primary Lack of coordination Urinary incontinence, unspecified type Nocturia documented [facility] this [facility] Diagnosis Urinary incontinence, unspecified type- Primary Muscular incoordination Lack of coordination Nocturia documented [facility] Diagnosis Urinary incontinence, unspecified type- Primary Muscular incoordination Lack of coordination Nocturia [facility] Diagnosis Urinary incontinence, unspecified type- Primary Muscular incoordination Lack of coordination Nocturia [facility] Diagnosis MCI (mild cognitive impairment)- Primary Mild cognitive impairment, so stated Memory loss [facility] Diagnosis Controlled type 2 diabetes mellitus without complication, without long-term current use of insulin (HCC)- Primary Essential hypertension Unspecified essential hypertension Hyperlipidemia with target LDL less than 100 Other and unspecified hyperlipidemia Vitamin D deficiency Unspecified vitamin D deficiency Elevated PSA Elevated prostate specific antigen (PSA) BPH associated with nocturia Hypertrophy of prostate with urinary obstruction and other lower urinary tract symptoms (LUTS) Memory changes Memory loss Radiculopathy of lumbar region Thoracic or lumbosacral neuritis or radiculitis, unspecified Cervical radiculopathy Brachial neuritis or radiculitis nos DM (diabetes mellitus), type 2 with neurological complications (HCC) Type II or unspecified type diabetes mellitus with neurological manifestations, not stated as uncontrolled Screening for depression Encounter for screening examination for other mental health and behavioral disorders Sebaceous cyst Skin lesion Unspecified disorder of skin and subcutaneous tissue [facility] Diagnosis Sebaceous cyst Skin lesion Unspecified disorder of skin and subcutaneous tissue [facility] Diagnosis Gross hematuria- Primary BPH associated with nocturia Hypertrophy of prostate with urinary obstruction and other lower urinary tract symptoms (LUTS) OAB (overactive bladder) Hypertonicity of bladder Elevated PSA Elevated prostate specific antigen (PSA) PFD (pelvic floor dysfunction) Pelvic muscle wasting Screening for genitourinary condition Screening for other and unspecified genitourinary condition documented [facility] Diagnosis Sebaceous cyst- Primary [facility]* Diagnosis Visit for suture removal- Primary Encounter for removal of sutures [facility] Diagnosis Gross hematuria [facility]* Diagnosis Visit for suture removal- Primary Encounter for removal of sutures documented [facility] Diagnosis Gross hematuria- Primary BPH with obstruction/lower urinary tract symptoms Hypertrophy of prostate with urinary obstruction and other lower urinary tract symptoms (LUTS) Bladder stone Other calculus in bladder [facility]* Diagnosis Pre-op exam- Primary Preoperative examination, unspecified BPH associated with nocturia Hypertrophy of prostate with urinary obstruction and other lower urinary tract symptoms (LUTS) Bladder calculus Other calculus in bladder DM (diabetes mellitus), type 2 with neurological complications (HCC) Type II or unspecified type diabetes mellitus with neurological manifestations, not stated as uncontrolled Primary hypertension Unspecified essential hypertension Hyperlipidemia with target LDL less than 100 Other and unspecified hyperlipidemia Hiatal hernia Diaphragmatic hernia without mention of obstruction or gangrene Gastroesophageal reflux disease without esophagitis Esophageal reflux Deep vein thrombosis (DVT) of proximal lower extremity, unspecified chronicity, unspecified laterality (HCC) Heart murmur Undiagnosed cardiac murmurs Bladder calculus Other calculus in bladder Benign prostatic hyperplasia, unspecified whether lower urinary tract symptoms present * Assessment & Plan Note - Brando Taylor APRN.CNP - 01/27/2025 8:23 AM EDT Associated Problem(s): Heart murmur Heart murmur noted on exam. Patient has never known of heart murmur. No echo in epic. Patient denies syncope, near syncope, chest pain or shortness of breath. * Assessment & Plan Note - Brando Taylor APRN.CNP - 01/27/2025 8:04 AM EDT Associated Problem(s): DVT (deep venous thrombosis) (HCC) H/O remote DVT- * Assessment & Plan Note - Brando Taylor APRN.CNP - 01/27/2025 8:03 AM EDT Associated Problem(s): Gastroesophageal reflux disease without esophagitis Occasional No medication + hiatal hernia-sometimes feel like food is getting stuck. * Assessment & Plan Note - Brando Taylor APRN.CNP - 01/26/2025 9:49 AM EDT Associated Problem(s): Hyperlipidemia with target LDL less than 100 Statin-Instructed to continue perioperatively 09/2024 lipid panel reviewed in epic * Assessment & Plan Note - Brando Taylor APRN.CNP - 01/26/2025 9:48 AM EDT Associated Problem(s): HTN (hypertension) Mtmtmuyov-VILV-glytyfhrfs to hold DOS Amlodipine-instructed to take DOS * Assessment & Plan Note - Brando Taylor APRN.CNP - 01/26/2025 9:48 AM EDT Associated Problem(s): DM (diabetes mellitus), type 2 with neurological complications (HCC) Metformin-instructed to hold DOS 09/2024 A1C 6.7% * Assessment & Plan Note - Brando Taylor APRN.CNP - 01/26/2025 9:47 AM EDT Associated Problem(s): Bladder calculus Surgery scheduled 02/04/2025 * Assessment & Plan Note - Brando Taylor APRN.CNP - 01/26/2025 9:47 AM EDT Associated Problem(s): BPH associated with nocturia Surgery scheduled 02/04/2025 * Assessment & Plan Note - Brando Taylor APRN.CNP - 01/26/2025 9:47 AM EDT Associated Problem(s): Pre-op exam see note for medical conditions which may affect franky-operative course that were addressed at today's visit. [facility] Diagnosis Pre-op exam- Primary Preoperative examination, unspecified BPH associated with nocturia Hypertrophy of prostate with urinary obstruction and other lower urinary tract symptoms (LUTS) Bladder calculus Other calculus in bladder DM (diabetes mellitus), type 2 with neurological complications (HCC) Type II or unspecified type diabetes mellitus with neurological manifestations, not stated as uncontrolled Primary hypertension Unspecified essential hypertension Hyperlipidemia with target LDL less than 100 Other and unspecified hyperlipidemia Hiatal hernia Diaphragmatic hernia without mention of obstruction or gangrene Gastroesophageal reflux disease without esophagitis Esophageal reflux Deep vein thrombosis (DVT) of proximal lower extremity, unspecified chronicity, unspecified laterality (HCC) Heart murmur Undiagnosed cardiac murmurs Visit for suture removal- Primary Encounter for removal of sutures Bladder calculus Other calculus in bladder Benign prostatic hyperplasia, unspecified whether lower urinary tract symptoms present [facility] Diagnosis Pre-op exam- Primary Preoperative examination, unspecified BPH associated with nocturia Hypertrophy of prostate with urinary obstruction and other lower urinary tract symptoms (LUTS) Bladder calculus Other calculus in bladder DM (diabetes mellitus), type 2 with neurological complications (HCC) Type II or unspecified type diabetes mellitus with neurological manifestations, not stated as uncontrolled Primary hypertension Unspecified essential hypertension Hyperlipidemia with target LDL less than 100 Other and unspecified hyperlipidemia Hiatal hernia Diaphragmatic hernia without mention of obstruction or gangrene Gastroesophageal reflux disease without esophagitis Esophageal reflux Deep vein thrombosis (DVT) of proximal lower extremity, unspecified chronicity, unspecified laterality (HCC) Heart murmur Undiagnosed cardiac murmurs Heart murmur- Primary Undiagnosed cardiac murmurs Bladder calculus Other calculus in bladder Benign prostatic hyperplasia, unspecified whether lower urinary tract symptoms present documented in this encounter [facility] Discharge instructions* Attachments The following attachments cannot be sent through Care Everywhere. * Lacerations: Adhesives (Gambian) [facility] Reason for referral (narrative)* Diagnostic Procedure Only (Routine) - Closed Specialty Diagnoses / Procedures Referred By Contac t Referred To Contact XR IMAGING Diagnoses Chronic pain of both shoulders Procedures XR SHOULDER GENERAL 3V OR MORE AP/TRUE AP/OTHER LT X-RAY SHOULDER COMPLET MIN 2 VIEWS Dinora Claudio PA-C [address] [place] [address] [place] [address] Referral ID Status Reason Start Date Expiration Date V isits Requested Visits Authorized Closed Auto-Generate d Referral 04/04/2021 05/04/2022 1 1 * Diagnostic Procedure Only (Routine) - Closed Specialty Diagnoses / Procedures Referred By Contac t Referred To Contact XR IMAGING Diagnoses Chronic pain of both shoulders Procedures XR SHOULDER GENERAL 3V OR MORE AP/TRUE AP/OTHER RT X-RAY SHOULDER COMPLET MIN 2 VIEWS Dinora Claudio PA-C [address] [place] [address] [place] [address] Referral ID Status Reason Start Date Expiration Date V isits Requested Visits Authorized [id number] Closed Auto-Generate d Referral 04/04/2021 05/04/2022 1 1 [facility] Diagnostic Procedure Only (Routine) - Closed Specialty Diagnoses / Procedures Referred By Contac t Referred To Contact XR IMAGING Diagnoses Chronic pain of both shoulders Procedures XR SHOULDER GENERAL 3V OR MORE AP/TRUE AP/OTHER LT X-RAY SHOULDER COMPLET MIN 2 VIEWS Dinora Claudio PA-C [address] [place] [address] [place] [address] Referral ID Status Reason Start Date Expiration Date V isits Requested Visits Authorized [id number] Closed Auto-Generate d Referral 04/04/2021 05/04/2022 1 1 [facility] Summary Purpose Family History No Family History Records FoundNo Family History Records FoundNo Family History Records FoundNo Family History Records FoundNo Family History Records FoundNo Family History Records Found Advance Directives No Advanced Directives Records FoundNo Advanced Directives Records FoundNo Advanced Directives Records FoundNo Advanced Directives Records FoundNo Advanced Directives Records FoundNo Advanced Directives Records Found Health Concerns Infection Onset Date Last Indicated Resolved Time COVID-19 Rule-Out 08/31/2023 08/31/2023 Reason for Referral Specialty Diagnoses / Procedures Referred By Contac t Referred To Contact Urology Diagnoses BPH associated with nocturia Elevated PSA Procedures CONSULT TO UROLOGY OFFICE/OUTPATIENT NEW HIGH MDM 60 MINUTES Michelle Martin, B2B OUTSIDE SALES REPRESENTATIVE.MUSIC COORDINATOR [address] [place] [address] Referral ID Status Reason Start Date Expiration Date Visits Requested Visits Authorized [id number] Authorized PCP Requested Referral 10/10/2023 10/09/2024 1 1 Specialty Diagnoses / Procedures Referred By Contac t Referred To Contact Neurology Diagnoses Memory changes Procedures CONSULT TO NEUROLOGY Michelle Martin APRN.MUSIC COORDINATOR [address] [place] [address] Referral ID Status Reason Start Date Expiration Date Visits Requested Visits Authorized [id number] Ref Not Required PCP Requested Referral 10/10/2023 10/09/2024 1 1 Specialty Diagnoses / Procedures Referred By Contac t Referred To Contact Diagnoses Memory loss Cognitive decline Procedures NEUROPSYCHOLOGICAL TESTING CONSULT NEUROBEHAVIORAL STATUS XM PHYS/QHP 1ST HOUR NEUROPSYCHOLOGICAL TST EVAL PHYS/QHP 1ST HOUR NEUROPSYCHOLOGICAL TST EVAL PHYS/QHP EA ADDL HR PSYCL/NRPSYCL TST TECH 2+ TST 1ST 30 MIN PSYCL/NRPSYCL TST TECH 2+ TST EA ADDL 30 MIN Kenan Pace Jr., MD [address] [facility] [address] [place] [address] Referral ID Status Reason Start Date Expiration Date Visits Requested Visits Authorized [id number] Ref Not Required PCP Requested Referral 12/24/2023 03/23/2024 1 3 Specialty Diagnoses / Procedures Referred By Contac t Referred To Contact MR IMAGING Diagnoses Memory loss Cognitive decline Procedures MRI BRAIN WO IVCON MRI BRAIN BRAIN STEM W/O CONTRAST MATERIAL Kenan Pace Jr., MD [address] [facility] [address] [place] [address] [place] [address] Referral ID Status Reason Start Date Expiration Date Visits Requested Visits Authorized [id number] Authorized Auto-Generat ed Referral 12/24/2023 01/22/2025 1 1 Referral ID Status Reason Start Date Expiration Date V isits Requested Visits Authorized [id number] Closed Auto-Generate d Referral 12/24/2023 01/22/2025 1 1 Specialty Diagnoses / Procedures Referred By Contac t Referred To Contact [facility] Diagnoses Radiculopathy of lumbar region Procedures CONSULT TO PHYSICAL THERAPY PHYSICAL THERAPY EVALUATION HIGH COMPLEX 45 MINS Viktor Ferrera MD [address] [place] [address] [facility] [address] [address] Referral ID Status Reason Start Date Expiration Date Visits Requested Visits Authorized [id number] Authorized Auto-Generat ed Referral 07/02/2023 07/01/2024 99 99 Specialty Diagnoses / Procedures Referred By Contac t Referred To Contact [facility] Diagnoses Cervical radiculopathy Strain of neck muscle, initial encounter Procedures CONSULT TO PHYSICAL THERAPY PHYSICAL THERAPY EVALUATION HIGH COMPLEX 45 MINS Michelle Martin, DEE DEE.MUSIC COORDINATOR [address] [place] [address] [facility] [address] [address] Referral ID Status Reason Start Date Expiration Date Visits Requested Visits Authorized [id number] Pending Review Auto-Generat ed Referral 05/22/2025 1 1 Specialty Diagnoses / Procedures Referred By Contac t Referred To Contact MR IMAGING Diagnoses Radiculopathy of lumbar region Procedures MRI LUMBAR SPINE WO IVCON MRI SPINAL CANAL LUMBAR W/O CONTRAST MATERIAL Viktor Ferrera MD [address] [place] [address] [place] [address] Referral ID Status Reason Start Date Expiration Date Visits Requested Visits Authorized [id number] Authorized Auto-Generat ed Referral 07/10/2025 1 1 Specialty Diagnoses / Procedures Referred By Contac t Referred To Contact Diagnoses Claustrophobia Viktor Ferrera MD [address] [place] [address] Referral ID Status Reason Start Date Expiration Date V isits Requested Visits Authorized [id number] Authorized 05/13/2024 07/12/2024 1 1 Referral ID Status Reason Start Date Expiration Date V isits Requested Visits Authorized [id number] Closed Auto-Generate d Referral 06/10/2024 07/10/2025 1 1 Specialty Diagnoses / Procedures Referred By Ruy t Referred To Contact [facility] Diagnoses Urinary incontinence, unspecified type Procedures CONSULT TO PHYSICAL THERAPY PHYSICAL THERAPY EVALUATION HIGH COMPLEX 45 MINS Viktor Ferrera MD [address] [place] [address] [facility] [place] [address] [place] [address] Referral ID Status Reason Start Date Expiration Date Visits Requested Visits Authorized [id number] Pending Review Auto-Generat ed Referral 06/30/2025 1 1 Additional Source Comments (unrecognized sect ion and content) No Status Records FoundNo Status Records FoundNo Status Records FoundNo Status Records FoundNo Status Records FoundNo Status Records Found INFORMATION SOURCE (unrecogn ized section and content) DATE CREATED AUTHOR 10/05/2020 [facility] DATE CREATED AUTHOR AUTHOR'S ORGANIZ ATION 03/24/2021 [facility] DATE CREATED AUTHOR AUTHOR'S ORGANIZ ATION 12/23/2021 [facility] DATE CREATED AUTHOR AUTHOR'S ORGANIZ ATION 01/28/2025 [facility] DATE CREATED AUTHOR AUTHOR'S ORGANIZ ATION 01/31/2025 [facility] DATE CREATED AUTHOR AUTHOR'S ORGANIZ ATION 02/02/2025 [facility] Reason for Visit (unrecogniz ed section and content) Reason Comments Physical Therapy Specialty Diagnoses / Procedures Referred By Ruy t Referred To Contact [facility] Diagnoses Urinary incontinence, unspecified type Procedures CONSULT TO PHYSICAL THERAPY PHYSICAL THERAPY EVALUATION HIGH COMPLEX 45 MINS Viktor Ferrera MD [address] [place] [address] Phone: tel: fax: [facility] [place] [address] Referral ID Status Reason Start Date Expiration Date Visits Requested Visits Authorized [id number] Authorized Auto-Generat ed Referral 07/02/2024 07/01/2025 99 99 Reason Comments PT Progress Note Reason Comments PT Eval Specialty Diagnoses / Procedures Referred By Contac t Referred To Contact [facility] Diagnoses Urinary incontinence, unspecified type Procedures CONSULT TO PHYSICAL THERAPY PHYSICAL THERAPY EVALUATION HIGH COMPLEX 45 MINS Viktor Ferrera MD [address] [place] [address] [facility] [address] [address] Referral ID Status Reason Start Date Expiration Date Visits Requested Visits Authorized [id number] Authorized Auto-Generat ed Referral 07/02/2024 07/01/2025 99 99 Reason Comments PT Discharge Specialty Diagnoses / Procedures Referred By Contac t Referred To Contact [facility] Diagnoses Radiculopathy of lumbar region Procedures CONSULT TO PHYSICAL THERAPY PHYSICAL THERAPY EVALUATION HIGH COMPLEX 45 MINS Viktor Ferrera MD [facility] [place] [place] [address] [facility] [address] [address] Referral ID Status Reason Start Date Expiration Date Visits Requested Visits Authorized [id number] Authorized Auto-Generat ed Referral 07/02/2023 07/01/2024 99 99 Reason Comments PT Re-eval Reason Comments Patient Left Without Being Seen Reason Comments Results Specialty Diagnoses / Procedures Referred By Contac t Referred To Contact Psychology / PSYCHIATRY Diagnoses Memory loss Cognitive decline Procedures NEUROBEHAVIORAL STATUS XM PHYS/QHP 1ST HOUR NEUROPSYCHOLOGICAL TST EVAL PHYS/QHP 1ST HOUR NEUROPSYCHOLOGICAL TST EVAL PHYS/[place] [id number] Kenan Pace Jr., MD [address] [place] [address] Jesse Bain, PhD [address] [address] Referral ID Status Reason Start Date Expiration Date V isits Requested Visits Authorized [id number] Authorized 01/24/2024 04/25/2024 4 4 Specialty Diagnoses / Procedures Referred By Contac t Referred To Contact Physical Therapy / PHYSICAL THERAPY Diagnoses Chronic pain of both shoulders [M25.511, G89.29, M25.512] Procedures PHYSICAL THERAPY EVALUATION HIGH COMPLEX 45 MINS THERAPEUTIC EXERCISES RE, EA 15 MIN. EST RS PT ORTH K Dinora Claudio, PA-C [address] [place] [address] Abdullahi Conde, PT [address] [place] [address] Referral ID Status Reason Start Date Expiration Date V isits Requested Visits Authorized [id number] Authorized 07/02/2021 07/01/2022 99 99 Reason Comments Facial Pain S/P FAL Reason Onset Date Comments Refill Request 10/12/2021 Reason Onset Date Comments Population Health Navigation Outreach 02/27/2022 [employer] Care Gaps Reason Comments 6 Month Exam Reason Onset Date Comments Refill Request 04/13/2022 Reason Comments F/U 6 Month Reason Comments Appointment Reason Onset Date Comments Population Health Navigation Outreach 03/26/2023 [employer] care gaps Reason Onset Date Comments Population Health Navigation Outreach 08/21/2023 [employer] care gaps Reason Comments Cough Chest congestion, ST , PEREZ x1 week Reason Comments Acute Visit Still coughing and w heezing Reason Comments 6 Month Exam Reason Comments Results Labs Reason Onset Date Comments Population Health Navigation Outreach 11/27/2023 [employer],[place] Reason Onset Date Comments Refill Request 12/05/2023 Reason Comments New Patient PCP referral reporte d issues with long, short term memory x3 yrs. Specialty Diagnoses / Procedures Referred By Contac t Referred To Contact MR IMAGING Diagnoses Memory loss Cognitive decline Procedures MRI BRAIN WO IVCON MRI BRAIN BRAIN STEM W/O CONTRAST MATERIAL Kenan Pace Jr., MD [address] [facility] [address] [place] [address] [place] [address] Referral ID Status Reason Start Date Expiration Date V isits Requested Visits Authorized [id number] Closed Auto-Generate d Referral 12/24/2023 01/22/2025 1 1 Reason Comments Neuropsych Testing Specialty Diagnoses / Procedures Referred By Contac t Referred To Contact Psychology / PSYCHIATRY Diagnoses Memory loss Cognitive decline Procedures NEUROBEHAVIORAL STATUS XM PHYS/QHP 1ST HOUR NEUROPSYCHOLOGICAL TST EVAL PHYS/QHP 1ST HOUR NEUROPSYCHOLOGICAL TST EV[place]YS/[place] [id number] Kenan Pace Jr., MD [address] [place] [address] Jesse Bian, PhD 1946 [facility], [facility] [address] [place] [address] Reason Comments Patient Update Reason Comments Follow Up Benign Prostatic Hypertrophy Elevated PSA Reason Comments Follow Up Reason Comments Follow Up Reason Comments Med Change Request Reason Comments Consult Benign Prostatic Hypertrophy Elevated PSA Specialty Diagnoses / Procedures Referred By Contac t Referred To Contact Urology Diagnoses BPH associated with nocturia Elevated PSA Procedures CONSULT TO UROLOGY OFFICE/OUTPATIENT NEW HIGH MDM 60 MINUTES Michelle Martin APRN.CNP [address] [place] [address] Referral ID Status Reason Start Date Expiration Date V isits Requested Visits Authorized [id number] Closed PCP Requested Referral 10/10/2023 10/09/2024 1 1 Reason Comments Follow Up Benign Prostatic Hypertrophy Overactive Bladder Reason Comments Neck Pain right x Sunday slept on wrong Reason Comments Acute Visit Stiff neck Reason Comments Patient Question Specialty Diagnoses / Procedures Referred By Contac t Referred To Contact MR IMAGING Diagnoses Radiculopathy of lumbar region Procedures MRI LUMBAR SPINE WO IVCON MRI SPINAL CANAL LUMBAR W/O CONTRAST MATERIAL Viktor Ferrera MD [address] [place] [address] [id number] Referral ID Status Reason Start Date Expiration Date V isits Requested Visits Authorized [id number] Closed Auto-Generate d Referral 06/10/2024 07/10/2025 1 1 Reason Comments Established Patient MCI, memory loss- c/ o symtpoms Reason Comments F/U 6 Month Reason Comments Consult Specialty Diagnoses / Procedures Referred By Contac t Referred To Contact General Surgery Diagnoses Sebaceous cyst Skin lesion Procedures CONSULT TO GENERAL SURGERY OFFICE/OUTPATIENT NEW HIGH MDM 60 MINUTES Viktor Ferrera MD [address] [place] [address] Phone: tel: fax: Referral ID Status Reason Start Date Expiration Date V isits Requested Visits Authorized [id number] Closed PCP Requested Referral 10/16/2024 10/16/2025 1 1 Reason Comments Follow Up Overactive Bladder Benign Prostatic Hypertrophy Blood In Urine Reason Comments Procedure Reason Comments Radiology CT Specialty Diagnoses / Procedures Referred By Ruy t Referred To Contact CT IMAGING Diagnoses Gross hematuria Procedures CT UROGRAM WO/W IVCON CT ABD & PELVIS W/WO CONTRST 1+ BODY Jaye Richardson PA-C [address] [place] [address] Phone: tel: fax: [place] [address] Referral ID Status Reason Start Date Expiration Date V isits Requested Visits Authorized [id number] Closed Auto-Generate d Referral 12/02/2024 12/25/2025 1 1 Reason Comments Suture Removal Reason Comments Follow Up Cystoscopy-1 Reason Comments Nurse Visit Reason Comments Pre-Op Update Reason Onset Date Comments Results 11/28/2024 Orders 11/28/2024 Reason Comments Orders Reason Comments Refill Request Ordered Prescriptions (unrec ognized section and content) Prescription Sig Dispensed Refills Start Date End Da te penicillin v potassium (VEETID) 500 MG tablet Take 1 tablet by mouth 4 times daily for 6 days 24 tablet 0 03/19/2021 03/25/2021 Scheduled Active and Recently Administ ered Medications (unrecognized section and content) Medication Order 03/17/2021 03/18/2021 03/19/2021 lidocaine-EPINEPHrine 1 %-1:[id number] injection 5 mL (COMPLETED) 5 mL, IntraDERmal, ONCE, On 03/19/21 at 1999, For 1 dose 2033 (Given - Provid er: Radha Winter RN) penicillin v potassium (VEETID) tablet 500 mg (COMPLETED) 500 mg, Oral, ONCE, On 03/19/21 at 2000, For 1 dose, Tube feeding (TF) interaction, obtain physician order to manage, recommend holding TF for 1 hr before and 2 hrs after dose. 2032 (Given - Provid er: Radha Winter RN) Source Comments (unrecognize d section and content) In the event this informatio n is protected by the Federal Confidentiality of Alcohol and Drug Abuse Patient Records regulations: The Federal rules restrict any use of the information to criminally investigate or prosecute any alcohol or drug abuse patient.[facility] the event this information is protected by the Federal Confidentiality of Alcohol and Drug Abuse Patient Records regulations: The Federal rules restrict any use of the information to criminally investigate or prosecute any alcohol or drug abuse patient.[facility]In the event this information is protected by the Federal Confidentiality of Alcohol and Drug Abuse Patient Records regulations: The Federal rules restrict any use of the information to criminally investigate or prosecute any alcohol or drug abuse patient.[facility]In the event this information is protected by the Federal Confidentiality of Alcohol and Drug Abuse Patient Records regulations: The Federal rules restrict any use of the information to criminally investigate or prosecute any alcohol or drug abuse patient.[facility]In the event this information is protected by the Federal Confidentiality of Alcohol and Drug Abuse Patient Records regulations: The Federal rules restrict any use of the information to criminally investigate or prosecute any alcohol or drug abuse patient.[facility]In the event this information is protected by the Federal Confidentiality of Alcohol and Drug Abuse Patient Records regulations: The Federal rules restrict any use of the information to criminally investigate or prosecute any alcohol or drug abuse patient.[facility] CincinnatiIn the event this information is protected by the Federal Confidentiality of Alcohol and Drug Abuse Patient Records regulations: The Federal rules restrict any use of the information to criminally investigate or prosecute any alcohol or drug abuse patient.[facility] CincinnatiIn the event this information is protected by the Federal Confidentiality of Alcohol and Drug Abuse Patient Records regulations: The Federal rules restrict any use of the information to criminally investigate or prosecute any alcohol or drug abuse patient.[facility] CincinnatiIn the event this information is protected by the Federal Confidentiality of Alcohol and Drug Abuse Patient Records regulations: The Federal rules restrict any use of the information to criminally investigate or prosecute any alcohol or drug abuse patient.[facility] CincinnatiIn the event this information is protected by the Federal Confidentiality of Alcohol and Drug Abuse Patient Records regulations: The Federal rules restrict any use of the information to criminally investigate or prosecute any alcohol or drug abuse patient.[facility] CincinnatiIn the event this information is protected by the Federal Confidentiality of Alcohol and Drug Abuse Patient Records regulations: The Federal rules restrict any use of the information to criminally investigate or prosecute any alcohol or drug abuse patient.[facility] CincinnatiIn the event this information is protected by the Federal Confidentiality of Alcohol and Drug Abuse Patient Records regulations: The Federal rules restrict any use of the information to criminally investigate or prosecute any alcohol or drug abuse patient.[facility] CincinnatiIn the event this information is protected by the Federal Confidentiality of Alcohol and Drug Abuse Patient Records regulations: The Federal rules restrict any use of the information to criminally investigate or prosecute any alcohol or drug abuse patient.[facility] CincinnatiIn the event this information is protected by the Federal Confidentiality of Alcohol and Drug Abuse Patient Records regulations: The Federal rules restrict any use of the information to criminally investigate or prosecute any alcohol or drug abuse patient.[facility] CincinnatiIn the event this information is protected by the Federal Confidentiality of Alcohol and Drug Abuse Patient Records regulations: The Federal rules restrict any use of the information to criminally investigate or prosecute any alcohol or drug abuse patient.[facility] CincinnatiIn the event this information is protected by the Federal Confidentiality of Alcohol and Drug Abuse Patient Records regulations: The Federal rules restrict any use of the information to criminally investigate or prosecute any alcohol or drug abuse patient.[facility] CincinnatiIn the event this information is protected by the Federal Confidentiality of Alcohol and Drug Abuse Patient Records regulations: The Federal rules restrict any use of the information to criminally investigate or prosecute any alcohol or drug abuse patient.[facility] CincinnatiIn the event this information is protected by the Federal Confidentiality of Alcohol and Drug Abuse Patient Records regulations: The Federal rules restrict any use of the information to criminally investigate or prosecute any alcohol or drug abuse patient.[facility] CincinnatiIn the event this information is protected by the Federal Confidentiality of Alcohol and Drug Abuse Patient Records regulations: The Federal rules restrict any use of the information to criminally investigate or prosecute any alcohol or drug abuse patient.[facility] CincinnatiIn the event this information is protected by the Federal Confidentiality of Alcohol and Drug Abuse Patient Records regulations: The Federal rules restrict any use of the information to criminally investigate or prosecute any alcohol or drug abuse patient.[facility] CincinnatiIn the event this information is protected by the Federal Confidentiality of Alcohol and Drug Abuse Patient Records regulations: The Federal rules restrict any use of the information to criminally investigate or prosecute any alcohol or drug abuse patient.[facility] CincinnatiIn the event this information is protected by the Federal Confidentiality of Alcohol and Drug Abuse Patient Records regulations: The Federal rules restrict any use of the information to criminally investigate or prosecute any alcohol or drug abuse patient.[facility] CincinnatiIn the event this information is protected by the Federal Confidentiality of Alcohol and Drug Abuse Patient Records regulations: The Federal rules restrict any use of the information to criminally investigate or prosecute any alcohol or drug abuse patient.[facility] CincinnatiIn the event this information is protected by the Federal Confidentiality of Alcohol and Drug Abuse Patient Records regulations: The Federal rules restrict any use of the information to criminally investigate or prosecute any alcohol or drug abuse patient.[facility] CincinnatiIn the event this information is protected by the Federal Confidentiality of Alcohol and Drug Abuse Patient Records regulations: The Federal rules restrict any use of the information to criminally investigate or prosecute any alcohol or drug abuse patient.[facility] CincinnatiIn the event this information is protected by the Federal Confidentiality of Alcohol and Drug Abuse Patient Records regulations: The Federal rules restrict any use of the information to criminally investigate or prosecute any alcohol or drug abuse patient.[facility] CincinnatiIn the event this information is protected by the Federal Confidentiality of Alcohol and Drug Abuse Patient Records regulations: The Federal rules restrict any use of the information to criminally investigate or prosecute any alcohol or drug abuse patient.[facility] CincinnatiIn the event this information is protected by the Federal Confidentiality of Alcohol and Drug Abuse Patient Records regulations: The Federal rules restrict any use of the information to criminally investigate or prosecute any alcohol or drug abuse patient.[facility] CincinnatiIn the event this information is protected by the Federal Confidentiality of Alcohol and Drug Abuse Patient Records regulations: The Federal rules restrict any use of the information to criminally investigate or prosecute any alcohol or drug abuse patient.[facility] CincinnatiIn the event this information is protected by the Federal Confidentiality of Alcohol and Drug Abuse Patient Records regulations: The Federal rules restrict any use of the information to criminally investigate or prosecute any alcohol or drug abuse patient.[facility] CincinnatiIn the event this information is protected by the Federal Confidentiality of Alcohol and Drug Abuse Patient Records regulations: The Federal rules restrict any use of the information to criminally investigate or prosecute any alcohol or drug abuse patient.[facility] CincinnatiIn the event this information is protected by the Federal Confidentiality of Alcohol and Drug Abuse Patient Records regulations: The Federal rules restrict any use of the information to criminally investigate or prosecute any alcohol or drug abuse patient.[facility] CincinnatiIn the event this information is protected by the Federal Confidentiality of Alcohol and Drug Abuse Patient Records regulations: The Federal rules restrict any use of the information to criminally investigate or prosecute any alcohol or drug abuse patient.[facility] CincinnatiIn the event this information is protected by the Federal Confidentiality of Alcohol and Drug Abuse Patient Records regulations: The Federal rules restrict any use of the information to criminally investigate or prosecute any alcohol or drug abuse patient.[facility] CincinnatiIn the event this information is protected by the Federal Confidentiality of Alcohol and Drug Abuse Patient Records regulations: The Federal rules restrict any use of the information to criminally investigate or prosecute any alcohol or drug abuse patient.[facility] CincinnatiIn the event this information is protected by the Federal Confidentiality of Alcohol and Drug Abuse Patient Records regulations: The Federal rules restrict any use of the information to criminally investigate or prosecute any alcohol or drug abuse patient.[facility] CincinnatiIn the event this information is protected by the Federal Confidentiality of Alcohol and Drug Abuse Patient Records regulations: The Federal rules restrict any use of the information to criminally investigate or prosecute any alcohol or drug abuse patient.[facility] CincinnatiIn the event this information is protected by the Federal Confidentiality of Alcohol and Drug Abuse Patient Records regulations: The Federal rules restrict any use of the information to criminally investigate or prosecute any alcohol or drug abuse patient.[facility] CincinnatiIn the event this information is protected by the Federal Confidentiality of Alcohol and Drug Abuse Patient Records regulations: The Federal rules restrict any use of the information to criminally investigate or prosecute any alcohol or drug abuse patient.[facility] CincinnatiIn the event this information is protected by the Federal Confidentiality of Alcohol and Drug Abuse Patient Records regulations: The Federal rules restrict any use of the information to criminally investigate or prosecute any alcohol or drug abuse patient.[facility] CincinnatiIn the event this information is protected by the Federal Confidentiality of Alcohol and Drug Abuse Patient Records regulations: The Federal rules restrict any use of the information to criminally investigate or prosecute any alcohol or drug abuse patient.[facility] CincinnatiIn the event this information is protected by the Federal Confidentiality of Alcohol and Drug Abuse Patient Records regulations: The Federal rules restrict any use of the information to criminally investigate or prosecute any alcohol or drug abuse patient.[facility] CincinnatiIn the event this information is protected by the Federal Confidentiality of Alcohol and Drug Abuse Patient Records regulations: The Federal rules restrict any use of the information to criminally investigate or prosecute any alcohol or drug abuse patient.[facility] CincinnatiIn the event this information is protected by the Federal Confidentiality of Alcohol and Drug Abuse Patient Records regulations: The Federal rules restrict any use of the information to criminally investigate or prosecute any alcohol or drug abuse patient.[facility] CincinnatiIn the event this information is protected by the Federal Confidentiality of Alcohol and Drug Abuse Patient Records regulations: The Federal rules restrict any use of the information to criminally investigate or prosecute any alcohol or drug abuse patient.[facility] CincinnatiIn the event this information is protected by the Federal Confidentiality of Alcohol and Drug Abuse Patient Records regulations: The Federal rules restrict any use of the information to criminally investigate or prosecute any alcohol or drug abuse patient.[facility] CincinnatiIn the event this information is protected by the Federal Confidentiality of Alcohol and Drug Abuse Patient Records regulations: The Federal rules restrict any use of the information to criminally investigate or prosecute any alcohol or drug abuse patient.[facility] CincinnatiIn the event this information is protected by the Federal Confidentiality of Alcohol and Drug Abuse Patient Records regulations: The Federal rules restrict any use of the information to criminally investigate or prosecute any alcohol or drug abuse patient.[facility] CincinnatiIn the event this information is protected by the Federal Confidentiality of Alcohol and Drug Abuse Patient Records regulations: The Federal rules restrict any use of the information to criminally investigate or prosecute any alcohol or drug abuse patient.[facility] CincinnatiIn the event this information is protected by the Federal Confidentiality of Alcohol and Drug Abuse Patient Records regulations: The Federal rules restrict any use of the information to criminally investigate or prosecute any alcohol or drug abuse patient.[facility] CincinnatiIn the event this information is protected by the Federal Confidentiality of Alcohol and Drug Abuse Patient Records regulations: The Federal rules restrict any use of the information to criminally investigate or prosecute any alcohol or drug abuse patient.[facility] CincinnatiIn the event this information is protected by the Federal Confidentiality of Alcohol and Drug Abuse Patient Records regulations: The Federal rules restrict any use of the information to criminally investigate or prosecute any alcohol or drug abuse patient.[facility] CincinnatiIn the event this information is protected by the Federal Confidentiality of Alcohol and Drug Abuse Patient Records regulations: The Federal rules restrict any use of the information to criminally investigate or prosecute any alcohol or drug abuse patient.[facility] CincinnatiIn the event this information is protected by the Federal Confidentiality of Alcohol and Drug Abuse Patient Records regulations: The Federal rules restrict any use of the information to criminally investigate or prosecute any alcohol or drug abuse patient.[facility] CincinnatiIn the event this information is protected by the Federal Confidentiality of Alcohol and Drug Abuse Patient Records regulations: The Federal rules restrict any use of the information to criminally investigate or prosecute any alcohol or drug abuse patient.[facility] CincinnatiIn the event this information is protected by the Federal Confidentiality of Alcohol and Drug Abuse Patient Records regulations: The Federal rules restrict any use of the information to criminally investigate or prosecute any alcohol or drug abuse patient.[facility] CincinnatiIn the event this information is protected by the Federal Confidentiality of Alcohol and Drug Abuse Patient Records regulations: The Federal rules restrict any use of the information to criminally investigate or prosecute any alcohol or drug abuse patient.[facility] the event this information is protected by the Federal Confidentiality of Alcohol and Drug Abuse Patient Records regulations: The Federal rules restrict any use of the information to criminally investigate or prosecute any alcohol or drug abuse patient.[facility] the event this information is protected by the Federal Confidentiality of Alcohol and Drug Abuse Patient Records regulations: The Federal rules restrict any use of the information to criminally investigate or prosecute any alcohol or drug abuse patient.[facility]In the event this information is protected by the Federal Confidentiality of Alcohol and Drug Abuse Patient Records regulations: The Federal rules restrict any use of the information to criminally investigate or prosecute any alcohol or drug abuse patient.[facility]In the event this information is protected by the Federal Confidentiality of Alcohol and Drug Abuse Patient Records regulations: The Federal rules restrict any use of the information to criminally investigate or prosecute any alcohol or drug abuse patient.[facility] [place]In the event this information is protected by the Federal Confidentiality of Alcohol and Drug Abuse Patient Records regulations: The Federal rules restrict any use of the information to criminally investigate or prosecute any alcohol or drug abuse patient.[facility] CincinnatiIn the event this information is protected by the Federal Confidentiality of Alcohol and Drug Abuse Patient Records regulations: The Federal rules restrict any use of the information to criminally investigate or prosecute any alcohol or drug abuse patient.[facility]In the event this information is protected by the Federal Confidentiality of Alcohol and Drug Abuse Patient Records regulations: The Federal rules restrict any use of the information to criminally investigate or prosecute any alcohol or drug abuse patient.[facility]In the event this information is protected by the Federal Confidentiality of Alcohol and Drug Abuse Patient Records regulations: The Federal rules restrict any use of the information to criminally investigate or prosecute any alcohol or drug abuse patient.[facility]In the event this information is protected by the Federal Confidentiality of Alcohol and Drug Abuse Patient Records regulations: The Federal rules restrict any use of the information to criminally investigate or prosecute any alcohol or drug abuse patient.[facility]In the event this information is protected by the Federal Confidentiality of Alcohol and Drug Abuse Patient Records regulations: The Federal rules restrict any use of the information to criminally investigate or prosecute any alcohol or drug abuse patient.[facility]In the event this information is protected by the Federal Confidentiality of Alcohol and Drug Abuse Patient Records regulations: The Federal rules restrict any use of the information to criminally investigate or prosecute any alcohol or drug abuse patient.[facility]In the event this information is protected by the Federal Confidentiality of Alcohol and Drug Abuse Patient Records regulations: The Federal rules restrict any use of the information to criminally investigate or prosecute any alcohol or drug abuse patient.[facility]In the event this information is protected by the Federal Confidentiality of Alcohol and Drug Abuse Patient Records regulations: The Federal rules restrict any use of the information to criminally investigate or prosecute any alcohol or drug abuse patient.[facility]In the event this information is protected by the Federal Confidentiality of Alcohol and Drug Abuse Patient Records regulations: The Federal rules restrict any use of the information to criminally investigate or prosecute any alcohol or drug abuse patient.[facility] CincinnatiIn the event this information is protected by the Federal Confidentiality of Alcohol and Drug Abuse Patient Records regulations: The Federal rules restrict any use of the information to criminally investigate or prosecute any alcohol or drug abuse patient.[facility] CincinnatiIn the event this information is protected by the Federal Confidentiality of Alcohol and Drug Abuse Patient Records regulations: The Federal rules restrict any use of the information to criminally investigate or prosecute any alcohol or drug abuse patient.[facility] CincinnatiIn the event this information is protected by the Federal Confidentiality of Alcohol and Drug Abuse Patient Records regulations: The Federal rules restrict any use of the information to criminally investigate or prosecute any alcohol or drug abuse patient.[facility] CincinnatiIn the event this information is protected by the Federal Confidentiality of Alcohol and Drug Abuse Patient Records regulations: The Federal rules restrict any use of the information to criminally investigate or prosecute any alcohol or drug abuse patient.[facility] CincinnatiIn the event this information is protected by the Federal Confidentiality of Alcohol and Drug Abuse Patient Records regulations: The Federal rules restrict any use of the information to criminally investigate or prosecute any alcohol or drug abuse patient.[facility] Care Teams (unrecognized sec tion and content) Set Up Mechanic Automatic Line Relationship Specialty Start Date End Date Viktor Ferrera MD [address] [place], [place] [id number] PCP - General Family Practice 02/09/21 Set Up Mechanic Automatic Line Relationship Specialty Start Date End Date Viktor Ferrera MD [address] [place], [place] [id number] PCP - General Family Practice 02/09/21 Set Up Mechanic Automatic Line Relationship Specialty Start Date End Date Viktor Ferrera MD [address] [place], [place] [id number]- PCP - General Family Practice 02/09/21 Set Up Mechanic Automatic Line Relationship Specialty Start Date End Date Viktor Ferrera MD [address] [facility] [place] [address] PCP - General Family Practice 02/09/21 Set Up Mechanic Automatic Line Relationship Specialty Start Date End Date Viktor Ferrera MD [address] [facility] [place] [address] PCP - General Family Practice 02/09/21 Set Up Mechanic Automatic Line Relationship Specialty Start Date End Date Viktor Ferrera MD [address] [facility] [place] [address] PCP - General Family Practice 02/09/21 Michel Nielsen [address] [facility] [address] Optometry 03/20/22 Set Up Mechanic Automatic Line Relationship Specialty Start Date End Date Viktor Ferrera MD [address] [facility] [place] [address] PCP - General Family Medicine 02/09/21 Michel Nielsen [address] [facility] [place] [address] Optometry 03/20/22 Set Up Mechanic Automatic Line Relationship Specialty Start Date End Date Viktor Ferrera MD [address] [facility] [place] [address] PCP - General Family Medicine 02/09/21 Michel Nielsen [address] [facility] [place] [address] Optometry 03/20/22 Set Up Mechanic Automatic Line Relationship Specialty Start Date End Date Viktor Ferrera MD [address] [facility] [place] [address] PCP - General Family Medicine 02/09/21 Michel Nielsen [address] [facility] [place] [address] Optometry 03/20/22 Set Up Mechanic Automatic Line Relationship Specialty Start Date End Date Viktor Ferrera MD [address] [facility] [place] [address] PCP - General Family Medicine 02/09/21 Michel Nielsen [address] [facility] [place] [address] Optometry 03/20/22 Set Up Mechanic Automatic Line Relationship Specialty Start Date End Date Viktor Ferrera MD [address] [facility] [place] [address] PCP - General Family Medicine 02/09/21 Michel Nielsen [address] [facility] [place] [address] Optometry 03/20/22 Set Up Mechanic Automatic Line Relationship Specialty Start Date End Date Viktor Ferrera MD [address] [facility] [place] [address] PCP - General Family Medicine 02/09/21 Michel Nielsen [address] [facility] [facility] [place] [address] Optometry 03/20/22 Set Up Mechanic Automatic Line Relationship Specialty Start Date End Date Viktor Ferrera MD [address] [facility] [place] [address] PCP - General Family Medicine 02/09/21 Michel Nielsen [address] [facility] [facility] [place] [address] Optometry 03/20/22 Set Up Mechanic Automatic Line Relationship Specialty Start Date End Date Viktor Ferrera MD [address] [place] [address] PCP - General Family Medicine 02/09/21 Michel Nielsen [address] [place] [address] Optometry 03/20/22 Set Up Mechanic Automatic Line Relationship Specialty Start Date End Date Viktor Ferrera MD [address] [place] [address] PCP - General Family Medicine 02/09/21 Michel Nielsen [address] [place] [address] Optometry 03/20/22 Set Up Mechanic Automatic Line Relationship Specialty Start Date End Date Viktor Ferrera MD [address] [place] [address] PCP - General Family Medicine 02/09/21 Michel Nielsen [address] [place] [address] Optometry 03/20/22 Set Up Mechanic Automatic Line Relationship Specialty Start Date End Date Viktor Ferrera MD [address] [place] [address] PCP - General Family Medicine 02/09/21 Michel Nielsen [address] [facility] [facility] [place] [address] Optometry 03/20/22 Set Up Mechanic Automatic Line Relationship Specialty Start Date End Date Viktor Ferrera MD [address] [facility] [place] [address] PCP - General Family Medicine 02/09/21 Michel Nielsen [address] [place] [address] Optometry 03/20/22 Set Up Mechanic Automatic Line Relationship Specialty Start Date End Date Viktor Ferrera MD [address] [facility] [place] [address] PCP - General Family Medicine 02/09/21 Michel Nielsen [address] [facility] [address] Optometry 03/20/22 Set Up Mechanic Automatic Line Relationship Specialty Start Date End Date Viktor Ferrera MD [address] [facility] [place] [address] PCP - General Family Medicine 02/09/21 Michel Nielsen [address] [facility] [facility] [place] [address] Optometry 03/20/22 Set Up Mechanic Automatic Line Relationship Specialty Start Date End Date Viktor Ferrera MD [address] [facility] [place] [address] PCP - General Family Medicine 02/09/21 Michel Nielsen [address] [facility] [place] [address] Optometry 03/20/22 Set Up Mechanic Automatic Line Relationship Specialty Start Date End Date Viktor Ferrera MD [address] [facility] [place] [address] PCP - General Family Medicine 02/09/21 Michel Nielsen [address] [facility] [place] [address] Optometry 03/20/22 Set Up Mechanic Automatic Line Relationship Specialty Start Date End Date Viktor Ferrera MD [address] [place] [address] PCP - General Family Medicine 02/09/21 Set Up Mechanic Automatic Line Relationship Specialty Start Date End Date Viktor Ferrera MD [address] [place] [address] PCP - General Family Medicine 02/09/21 Michel Nielsen [address] [place] [address] Optometry 03/20/22 Set Up Mechanic Automatic Line Relationship Specialty Start Date End Date Viktor Ferrera MD [address] [facility] [place] [address] PCP - General Family Medicine 02/09/21 Michel Nielsen [address] [facility] [place] [address] Optometry 03/20/22 Set Up Mechanic Automatic Line Relationship Specialty Start Date End Date Viktor Ferrera MD [address] [place] [address] PCP - General Family Medicine 02/09/21 Michel Nielsen [address] [facility] [place] [address] Optometry 03/20/22 Set Up Mechanic Automatic Line Relationship Specialty Start Date End Date Viktor Ferrera MD [address] [facility] [place] [address] PCP - General Family Medicine 02/09/21 Michel Nielsen [address] [place] [address] Optometry 03/20/22 Set Up Mechanic Automatic Line Relationship Specialty Start Date End Date Viktor Ferrera MD [address] [facility] [place] [address] PCP - General Family Medicine 02/09/21 Michel Nielsen [address] [facility] [place] [address] Optometry 03/20/22 Set Up Mechanic Automatic Line Relationship Specialty Start Date End Date Viktor Ferrera MD [address] [facility] [place] [address] PCP - General Family Medicine 02/09/21 Michel Nielsen [address] [place] [address] Optometry 03/20/22 Set Up Mechanic Automatic Line Relationship Specialty Start Date End Date Viktor Ferrera MD [address] [facility] [place] [address] PCP - General Family Medicine 02/09/21 Michel Nielsen [address] [facility] [place] [address] Optometry 03/20/22 Set Up Mechanic Automatic Line Relationship Specialty Start Date End Date Viktor Ferrera MD [address] [facility] [place] [address] PCP - General Family Medicine 02/09/21 Michel Nielsen [address] [place] [address] Optometry 03/20/22 Set Up Mechanic Automatic Line Relationship Specialty Start Date End Date Viktor Ferrera MD [address] [facility] [place] [address] PCP - General Family Medicine 02/09/21 Michel Nielsen [address] [place] [address] Optometry 03/20/22 Set Up Mechanic Automatic Line Relationship Specialty Start Date End Date Viktor Ferrera MD [address] [place] [address] PCP - General Family Medicine 02/09/21 Michel Nielsen [address] [place] [address] Optometry 03/20/22 Michelle Martin APRN.MUSIC COORDINATOR [address] [place] [address] Cleaner Window Family Medicine 06/08/24 Set Up Mechanic Automatic Line Relationship Specialty Start Date End Date Viktor Ferrera MD [address] [facility] [place] [address] PCP - General Family Medicine 02/09/21 Michel Nielsen [address] [place] [address] Optometry 03/20/22 Michelle Martin APRN.MUSIC COORDINATOR [address] [place] [address] Clean[facility] Family Medicine 06/08/24 Set Up Mechanic Automatic Line Relationship Specialty Start Date End Date Viktor Ferrera MD [address] [place] [address] PCP - General Family Medicine 02/09/21 Michel Nielsen [address] [place] [address] Optometry 03/20/22 Michelle Martin APRN.MUSIC COORDINATOR [address] [place] [address] Cleaner Window Family Medicine 06/08/24 Set Up Mechanic Automatic Line Relationship Specialty Start Date End Date Viktor Ferrera MD [address] [facility] [place] [address] PCP - General Family Medicine 02/09/21 Michel Nielsen [address] [place] [address] Optometry 03/20/22 Michelle Martin APRN.MUSIC COORDINATOR [address] [place] [address] Cleaner Window Family Medicine 06/08/24 [place] Leblanc APRN.MUSIC COORDINATOR [address] [facility] [place] [address] Cleaner Window Family Medicine 06/17/24 Set Up Mechanic Automatic Line Relationship Specialty Start Date End Date Viktor Ferrera MD [address] [place] [address] PCP - General Family Medicine 02/09/21 Michel Nielsen [address] [place] [address] Optometry 03/20/22 Michelle Martin APRN.MUSIC COORDINATOR [address] [place] [address] Clean[facility] Family Medicine 06/08/24 [place] Leblanc APRN.MUSIC COORDINATOR [address] [place] [address] [facility] 06/17/24 Set Up Mechanic Automatic Line Relationship Specialty Start Date End Date Viktor Ferrera MD [address] [place] [address] PCP - General Family Medicine 02/09/21 Michel Nielsen [address] [place] [address] Optometry 03/20/22 Michelle Martin B2B OUTSIDE SALES REPRESENTATIVE.MUSIC COORDINATOR [address] [place] [address] [facility] 06/08/24 Montana Leblanc B2B OUTSIDE SALES REPRESENTATIVE.MUSIC COORDINATOR [address] [place] [address] [facility] Medicine 06/17/24 Set Up Mechanic Automatic Line Relationship Specialty Start Date End Date Viktor Ferrera MD [address] [place] [address] PCP - General Family Medicine 02/09/21 Michel Nielsen [address] [place] [address] Optometry 03/20/22 Michelle Martin APRN.MUSIC COORDINATOR [address] [place] [address] [facility] 06/08/24 [place] Leblanc APRN.MUSIC COORDINATOR [address] [place] [address] Cleaner Window Family Medicine 06/17/24 Set Up Mechanic Automatic Line Relationship Specialty Start Date End Date Viktor Ferrera MD [address] [place] [address] PCP - General Family Medicine 02/09/21 Michel Nielsen [address] [place] [address] Optometry 03/20/22 Michelle Martin APRN.MUSIC COORDINATOR [address] [place] [address] Clean[facility] Family Medicine 06/08/24 [place] Leblanc APRN.MUSIC COORDINATOR [address] [place] [address] Cleaner Window Family Medicine 06/17/24 Set Up Mechanic Automatic Line Relationship Specialty Start Date End Date Viktor Ferrera MD [address] [place] [address] PCP - General Family Medicine 02/09/21 Michel Nielsen [address] [place] [address] Optometry 03/20/22 Michelle Martin APRN.MUSIC COORDINATOR [address] [place] [address] [facility] 06/08/24 [place] Leblanc APRN.MUSIC COORDINATOR [address] [place] [address] [facility] 06/17/24 Set Up Mechanic Automatic Line Relationship Specialty Start Date End Date Viktor Ferrera MD [address] [place] [address] PCP - General Family Medicine 02/09/21 Michel Nielsen [address] [place] [address] Optometry 03/20/22 Michelle Martin APRN.MUSIC COORDINATOR [address] [place] [address] [facility] 06/08/24 [place] Leblanc APRN.MUSIC COORDINATOR [address] [place] [address] [facility] 06/17/24 Set Up Mechanic Automatic Line Relationship Specialty Start Date End Date Viktor Ferrera MD [address] [place] [address] PCP - General Family Medicine 02/09/21 Michel Nielsen [address] [place] [address] Optometry 03/20/22 Michelle Martin APRN.MUSIC COORDINATOR [address] [facility] [place] [address] [facility] 06/08/24 [place] Leblanc APRN.MUSIC COORDINATOR [address] [place] [address] Cleaner Window Family [facility] 06/17/24 Set Up Mechanic Automatic Line Relationship Specialty Start Date End Date Viktor Ferrera MD [address] [place] [address] PCP - General Family Medicine 02/09/21 Michel Nielsen [address] [place] [address] Optometry 03/20/22 Michelle Martin APRN.MUSIC COORDINATOR [address] [facility] [place] [address] Cleaner Window Family [facility] 06/08/24 [place] Leblanc APRN.MUSIC COORDINATOR [address] [facility] [place] [address] [facility] 06/[facility] Set Up Mechanic Automatic Line Relationship Specialty Start Date End Date Viktor Ferrera MD [address] [place] [address] PCP - General Family Medicine 02/09/21 Michel Nielsen [address] [place] [address] Optometry 03/20/22 Michelle Martin APRN.MUSIC COORDINATOR [address] [place] [address] [facility] 06/08/24 [place] Leblanc APRN.MUSIC COORDINATOR [address] [place] [address] Clean[facility] 06/17/24 Set Up Mechanic Automatic Line Relationship Specialty Start Date End Date Viktor Ferrera MD [address] [place] [address] PCP - General Family Medicine 02/09/21 Michel Nielsen [address] [place] [address] Optometry 03/20/22 Michelle Martin B2B OUTSIDE SALES REPRESENTATIVE.MUSIC COORDINATOR [address] [place] [address] [facility] 06/08/24 Montana Leblanc B2B OUTSIDE SALES REPRESENTATIVE.MUSIC COORDINATOR [address] [place] [address] Cleaner Window [facility] Medicine 06/17/24 Set Up Mechanic Automatic Line Relationship Specialty Start Date End Date Viktor Ferrera MD [address] [place] [address] PCP - General Family Medicine 02/09/21 Michel Nielsen [address] [place] [address] Optometry 03/20/22 Montana Leblanc B2B OUTSIDE SALES REPRESENTATIVE.MUSIC COORDINATOR [address] [place] [address] [facility] 06/17/24 Set Up Mechanic Automatic Line Relationship Specialty Start Date End Date Viktor Ferrera MD [address] [place] [address] PCP - General Family Medicine 02/09/21 Michel Nielsen [address] [place] [address] Optometry 03/20/22 [place] Leblanc APRN.MUSIC COORDINATOR [address] [place] [address] Cleaner Window Family Medicine 06/17/24 Set Up Mechanic Automatic Line Relationship Specialty Start Date End Date Viktor Ferrera MD [address] [place] [address] PCP - General Family Medicine 02/09/21 Michel Nielsen [address] [place] [address] Optometry 03/20/22 [place] Leblanc APRN.MUSIC COORDINATOR [address] [place] [address] [facility] 06/17/24 Set Up Mechanic Automatic Line Relationship Specialty Start Date End Date Viktor Ferrera MD [address] [place] [address] PCP - General Family Medicine 02/09/21 Michel Nielsen [address] [place] [address] Optometry 03/20/22 [place] Leblanc APRN.MUSIC COORDINATOR [address] [place] [address] Cleaner Window Family Medicine 06/17/24 Set Up Mechanic Automatic Line Relationship Specialty Start Date End Date Viktor Ferrera MD [address] [place] [address] PCP - General Family Medicine 02/09/21 Michel Nielsen [address] [place] [address] Optometry 03/20/22 [place] Leblanc APRN.MUSIC COORDINATOR [address] [place] [address] Cleaner Window Family Medicine 06/17/24 Set Up Mechanic Automatic Line Relationship Specialty Start Date End Date Viktor Ferrera MD [address] [place] [address] PCP - General Family Medicine 02/09/21 Michel Nielsen [address] [place] [address] Optometry 03/20/22 Montana Leblanc APRN.MUSIC COORDINATOR [address] [place] [address] Cleaner Window Family Medicine 06/17/24 Set Up Mechanic Automatic Line Relationship Specialty Start Date End Date Viktor Ferrera MD [address] [place] [address] PCP - General Family Medicine 02/09/21 Michel Nielsen [address] [place] [address] Optometry 03/20/22 Montana Leblanc APRN.MUSIC COORDINATOR [address] [place] [address] Cleaner Window Family Medicine 06/17/24 Set Up Mechanic Automatic Line Relationship Specialty Start Date End Date Viktor Ferrera MD [address] [place] [address] PCP - General Family Medicine 02/09/21 Michel Nielsen [address] [place] [address] Optometry 03/20/22 [place] Leblanc APRN.MUSIC COORDINATOR [address] [place] [address] Cleaner Window Family Medicine 06/17/24 Set Up Mechanic Automatic Line Relationship Specialty Start Date End Date Viktor Ferrera MD [address] [place] [address] PCP - General Family Medicine 02/09/21 Michel Nielsen [address] [place] [address] Optometry 03/20/22 Montana Leblanc APRN.MUSIC COORDINATOR [address] [place] [address] Cleaner Window Family Medicine 06/17/24 Set Up Mechanic Automatic Line Relationship Specialty Start Date End Date Viktor Ferrera MD [address] [place] [address] PCP - General Family Medicine 02/09/21 Michel Nielsen [address] [place] [address] Optometry 03/20/22 [place] Leblanc APRN.MUSIC COORDINATOR [address] [place] [address] [facility] 06/17/24 Set Up Mechanic Automatic Line Relationship Specialty Start Date End Date Viktor Ferrera MD [address] [facility] [place] [address] PCP - General Family Medicine 02/09/21 Michel Nielsen [address] [place] [address] Optometry 03/20/22 [place] Leblanc APRN.MUSIC COORDINATOR [address] [place] [address] [facility] Set Up Mechanic Automatic Line Relationship Specialty Start Date End Date Viktor Ferrera MD [address] [place] [address] PCP - General Family Medicine 02/09/21 Michel Nielsen [address] [place] [address] Optometry 03/20/22 [place] Leblanc APRN.MUSIC COORDINATOR [address] [facility] [place] [address] [facility] 06/17/24 Set Up Mechanic Automatic Line Relationship Specialty Start Date End Date Viktor Ferrera MD [address] [place] [address] PCP - General Family Medicine 02/09/21 Michel Nielsen [address] [place] [address] Optometry 03/20/22 [place] Leblanc APRN.MUSIC COORDINATOR [address] [place] [address] [facility]24 FOR RECORDS PERTAINING TO PATIENTS WHO ARE OR HAVE BEEN ENROLLED IN A CHEMICAL DEPENDENCY/SUBSTANCEABUSE PROGRAM, SOME INFORMATION MAY BE OMITTED. This clinical summary was aggregated from multiple sources. Caution should be exercised in using it in the provision of clinical care. This summary normalizes information from multiple sources, and as a consequence, information in this document may materially change the coding, format and clinical context of patient data. In addition, data may be omitted in some cases. CLINICAL DECISIONS SHOULD BE BASED ON THE PRIMARY CLINICAL RECORDS. [facility] [employer] provides no warranty or guarantee of the accuracy or completeness of information in this document.
[2025-02-05 21:48] LABS: Hematocrit 40.5 % (40-54); Hemoglobin 14.0 g/dL (13.0-16.5); Mean Corp Hgb Conc 34.6 g/dL (32-36); Mean Corpuscular Volume 91.2 fL (80-94); Mean Platelet Vol. 10.0 fl (6.2-12.0); Platelet Count 179 K/mm3 (150-450); RBC Distribution Width CV 12.7 % (11.6-14.6); RBC Distribution Width SD 42.2 fl (35.1-43.9); Red Blood Count 4.44 M/mm3 (4.6-6.2); White Blood Count 11.5 K/mm3 (4.4-11.0)
[2025-02-05 22:02] VITALS: BP 149/70; PULSE 76; RESP 18; O2SAT 96
[2025-02-05 22:06] LABS: Anion Gap 15 (5-15); BUN 19 mg/dL (4-19); BUN/Creat Ratio 15.7 RATIO (10-20); Calcium,Total 9.0 mg/dL (7.6-11.0); Carbon Dioxide 23.7 mmol/L (21.0-32.0); Chloride 97 mmol/L (98-108); Glucose 154 mg/dL (70-99); Potassium 3.6 mmol/L (3.3-5.1)
[2025-02-05 23:09] VITALS: BMI 31.7
[2025-02-05 23:10] VITALS: PULSE 77; RESP 20; O2SAT 96
--- NOTE | 2025-02-06 00:34 | ED.RN ---
Manually irrigated gregg with 200ml of saline. Resistance met with aspiration of fluids, was able to irrigate urine that was blood tinged with no clots present at bedside. Dr. Ng present with aspiration
== END 2025-02-06 00:38 | disposition home or self-care (01) ==
PROVIDERS: Emergency Provider Emergency Medicine; PCP Family Medicine; Visit Provider Emergency Medicine
DX: R31.0 Gross hematuria (principal); E11.9 Type 2 diabetes mellitus without complications; R33.9 Retention of urine, unspecified; Z79.51 Long term (current) use of inhaled steroids; Z79.899 Other long term (current) drug therapy; Z79.84 Long term (current) use of oral hypoglycemic drugs
CPT/HCPCS: 80048; 85027; 99283; A4216

== ENCOUNTER 2025-05-07 04:16 | Emergency (ER) | payer MEDICARE, SELFPAY ==
[2025-05-07 04:17] VITALS: BP 218/92; PULSE 94; RESP 19; TEMP 36.4; O2SAT 98; BMI 31.4
--- NOTE | 2025-05-07 04:39 | EX.ED.DYSGE1 ---
HPI History of Present Illness Chief Complaint: Complaint Informant: patient and spouse/S.O. Narrative Narrative: Patient is a 69-year-old male with past ministry of hypertension hyperlipidemia [id number] diabetes and BPH. He states roughly 3 months ago he underwent a procedure for a bladder stone as well as a TURP for enlarged prostate. At that time he had to have a catheter placed. He states he ended up in the ER later that night as the catheter became obstructed. He states at that time he kept the catheter in for 8 days before it was removed and he was able to urinate on a normal basis. He reports he has been doing well and states there has been no change to his medication nor is he taken houy-gck-zllykik medication such as Benadryl or Sudafed. He states that he last urinated Sunday evening and then went to bed. He he states he awoke with significant lower abdominal discomfort and sensation he had to use the bathroom. He states he has been trying to urinate and has only been able to occasionally trickle. Therefore because of the inability urinate he presents for evaluation [facility] Medical History Urinary stone Memory loss due to medical condition Lumbar stenosis Diabetes Home Medications ?Medication ?Instructions ?Recorded ?Last Taken ?Type amlodipine 10 mg tablet 10 mg PO DAILY 03/03/17 04/16/17 06:55 History atorvastatin 20 mg tablet 20 mg PO QHS 03/03/17 Unknown History albuterol 90 mcg/actuation aerosol 90 mcg inhalation Q4H PRN PRN sob 02/05/25 Unknown History inhaler cholecalciferol (vitamin D3) 1,250 1,250 mcg PO QWEEK 02/05/25 Unknown History mcg (50,000 unit) capsule donepezil 5 mg tablet 5 mg PO DAILY 02/05/25 Unknown History gabapentin 300 mg capsule 300 mg PO Q12H PRN nerves 02/05/25 Unknown History metformin 500 mg tablet 500 mg PO BID 02/05/25 Unknown History tamsulosin 0.4 mg capsule 0.8 mg PO QHS 02/05/25 Unknown History trospium 20 mg tablet 20 mg PO DAILY 02/05/25 Unknown History valsartan 80 1 tab PO DAILY 02/05/25 Unknown History mg-hydrochlorothiazide 12.5 mg tablet donepezil 10 mg tablet 10 mg PO DAILY 05/07/25 Unknown History Allergy/AdvReac Type Severity Reaction Status Date / Time lisinopril Allergy PT UNSURE Verified 05/07/25 04:17 OF REACTION schwartz AdvReac PT UNSURE Verified 05/07/25 04:17 OF REACTION sunflower seed AdvReac PT UNSURE Verified 05/07/25 04:17 OF REACTION Social History Smoking Status: Never smoker ROS ROS ED Constitutional Constitutional ED: Denies chills or fever(s) ENT ENT ED: Denies sore throat Cardiovascular Cardiovascular: Denies chest pain Respiratory/Chest Respiratory/Chest: Denies cough or dyspnea Gastrointestinal Gastrointestinal: Reports abdominal pain; Denies diarrhea, nausea or vomiting Genitourinary Genitourinary ED: Reports other Details: Positive anuria ; Denies dysuria Musculoskeletal Musculoskeletal: Denies back pain Integumentary Denies rash Neurologic Neurologic: Denies headache(s) Hematologic/Lymphatic Hematologic/Lymphatic: Denies easy bleeding or easy bruising EXAM Physical Exam Const Vital Signs: 05/07/25 04:17 05/07/25 04:47 05/07/25 05:42 Temperature 97.6 F L 97.5 F L Temperature Source Oral Pulse Rate 94 99 68 Respiratory Rate 19 H 18 18 Blood Pressure 218/92 H 136/81 H 138/78 H Blood Pressure Mean 134 99 98 Pulse Ox 98 98 98 Oxygen Delivery Method Room Air Room Air Positive well nourished and well developed General Appearance ED: well developed; Negative for pallor HEENT HEENT Narrative: Normocephalic atraumatic Eyes PERRL and EOMs intact bilaterally General Eye ED: Negative for scleral icterus Neck supple Resp normal respiratory effort and clear to auscultation bilaterally Cardio regular rate and regular rhythm Rate: other Other Details: Heart is regular rate and rhythm No murmurs rubs or gallops Radial and carotid pulses are equal and symmetric GI GI Narrative: In the lower midline abdomen/suprapubic region there is organomegaly consistent with a distended bladder and there is pain with palpation at this site. The remainder of the abdomen is soft and nontender Bowel sounds are normal active Auscultation: normoactive bowel sounds Palpation: soft Narrative: Normal circumcised male without blood or discharge at the urethral meatus. No testicular masses or swelling noted No overlying soft tissue changes to suggest Brain's gangrene Back/Spine no CVA tenderness Extremity normal to inspection Neuro oriented x3, CN's II-XII intact bilaterally and no sensory deficits noted Sensorium / Orientation: alert Motor Exam: strength 5/5 throughout Psych mental status grossly normal Skin no rashes or lesions noted and no wounds General Skin Exam: Negative for jaundice or pallor MDM MDM MDM Narrative Medical decision making narrative: Patient arrived to the ER hypertensive but he has a past medical history of this and he is in pain so the elevated values to be expected. Otherwise vitals are stable. His history and exam is consistent with acute urinary retention. He states that he last urinated Sunday evening and therefore as the inability to void has only been present for approximately 6 to 8 hours my concern for acute kidney injury is low. As his physical exam does not suggest biliary colic or acute cholecystitis or pancreatitis or intestinal disorders such as colitis/diverticulitis as a cause of his belly pain I do not feel the need for imaging or laboratory studies. The patient had a Mejia catheter placed. Please note that upon trying to insert the Mjeia catheter there is seem to be an obstruction within just a few centimeters of the urethral meatus. The patient does have a history of bladder stone and therefore there was concern that he may have an obstructed stone in that region. I did use sterile forceps to probe the initial few centimeters of the urethra and there was no firm obstruction present going against a impacted bladder stone. This would indicate the patient most likely has a stricture or adhesion leading to obstruction. A coud? catheter was then used and with manual pressure there was a audible snap and then the catheter was able to be passed into his bladder. It resulted in clear yellow urine and resolution of his organomegaly and pain. At this time my concern for acute kidney injury is low based on the fact patient was reportedly last able to urinate normally 6 to 8 hours before arrival. I have low concern for infection as he is afebrile and the urine is clear. The patient does not have any medication reported that should have led to urinary retention. The fact that there was a obstruction shortly after insertion of the Mejia catheter which indicates urethral stricture or adhesion. At this time the obstruction has been resolved the patient is feeling much better now that the bladder is drained. I do feel the safest option is to keep the catheter in place so that there is no return of obstruction if it was due to a stricture or adhesion and he can follow-up with urology to discuss potentially cystoscopy or other tests or treatment options. However at this time with resolution of his symptoms and low concern for infection or MILY he is otherwise safe for discharge History & Record Review Discussion w/independent historian: Patient and Significant other Discharge Plan Triage Chief Complaint: Complaint ED Provider: Michael Conrad Dx/Rx/DC Orders Clinical Impression: Acute urinary retention, Urethral stricture, Hypertension, Hyperlipidemia, Non-insulin dependent diabetes mellitus, BPH (benign prostatic hyperplasia) Instructions: ED Urethral Stricture, ED Urinary Retention, Male Prescriptions: No Action atorvastatin 20 MG tablet 20 mg PO QHS amlodipine 10 MG tablet 10 mg PO DAILY albuterol 90 mcg/actuation aerosol 90 mcg inhalation Q4H PRN PRN (Reason: sob ) donepezil 5 mg tablet 5 mg PO DAILY gabapentin 300 mg capsule 300 mg PO Q12H PRN (Reason: nerves ) cholecalciferol (vitamin D3) 1,250 mcg (50,000 unit) capsule 1,250 mcg PO QWEEK metformin 500 mg tablet 500 mg PO BID valsartan-hydrochlorothiazide 80-12.5 mg tablet 1 tab PO DAILY tamsulosin 0.4 mg capsule 0.8 mg PO QHS trospium 20 mg tablet 20 mg PO DAILY donepezil 10 mg tablet 10 mg PO DAILY Primary Care Provider: Alfred Pretty Referrals: Alfred Pretty MD [Primary Care Provider, Family Practice] Activity Restrictions/Additional Instructions: Please follow-up with your urologist to discuss further testing and treatment options regarding your retention from a stricture or adhesions. Return to the ER should you have any further concerns Print Language: Emirati Disposition Disposition: Home, Self Care Discharge Date/Time: 05/07/25 05:52
[2025-05-07] MEDS: Lidocaine Jelly 2% 20 ML Syringe (URO-JET) 1 APPLIC TOPICAL (04:43)
[2025-05-07 04:47] VITALS: BP 136/81; PULSE 99; RESP 18; O2SAT 98
[2025-05-07 05:42] VITALS: BP 138/78; PULSE 68; RESP 18; TEMP 36.4; O2SAT 98
== END 2025-05-07 05:52 | disposition home or self-care (01) ==
PROVIDERS: Emergency Provider Emergency Medicine; PCP Family Medicine; Visit Provider Emergency Medicine
DX: N35.919 Unspecified urethral stricture, male, unspecified site (principal); E11.9 Type 2 diabetes mellitus without complications; R33.8 Other retention of urine; N40.1 Benign prostatic hyperplasia with lower urinary tract symptoms; I10 Essential (primary) hypertension; E78.5 Hyperlipidemia, unspecified; Z79.84 Long term (current) use of oral hypoglycemic drugs; Z79.899 Other long term (current) drug therapy
CPT/HCPCS: 51702; 99283